=== PATIENT | female | born 1955 | race Caucasian/White ===

== ENCOUNTER → 2017-06-22 08:45 | Outpatient (CLI) | payer OTHER, SELFPAY ==
--- NOTE | 2017-06-22 08:51 | HPBD_ITS ---
STUDY: DUAL ENERGY X-RAY ABSORPTIOMETRY / DXA REASON FOR EXAM: Female, 61 years old. The patient is postmenopausal. Loss of height. TECHNIQUE: Bone Mineral Density (BMD) measurements of lumbar spine and bilateral hips were obtained. COMPARISON: None. FINDINGS: Lumbar Spine (L1-L4): g/cm2 (1.097) / T-score (-0.7) / Z-score (0.5) Findings are suggestive of normal bone density with a low fracture risk. Left Femur Total: g/cm2 (0.954) / T-score (-0.4) / Z-score (0.5) Left Femoral Neck: g/cm2 (1.056) / T-score (0.1) / Z-score (1.4) Right Femur Total: g/cm2 (0.991) / T-score (-0.1) / Z-score (0.8) Right Femoral Neck: g/cm2 (1.053) / T-score (0.1) / Z-score (1.3) HPBD/Dexa Bone Density Study (HP) IMPRESSION: The patient is considered normal as outlined below according to World Eugene Organization (WHO) criteria with a low fracture risk. Reference Information: The T-score is the number of standard deviations above or below the standard which is normal for young adults at their peak bone mineral density. The World Health Organization (WHO) interprets the T-scores as follows: Above -1 Normal bone density Between -1 and -2.5 Osteopenia Equal to / or below -2.5 Osteoporosis As a practical clinical guideline, osteopenia may be graded as follows: Mild -1 through -1.5 Moderate -1.6 through -2.0 Severe -2.1 through -2.4 The Z-score is the number of standard deviations above or below age-matched controls. A Z-score of less than -1.5 would be considered abnormal. References: 1. NIH Osteoporosis and Related Bone Diseases http://www.osteo.org 2. International Society for Clinical Densitometry http://www.iscd.org 3. National Osteoporosis Foundation http://www.nof.org Electronically Signed: Ash Dennis MD at 13:01 EDT Tel [phone], Service support ,
--- NOTE | 2017-06-22 08:52 | HPBI_ITS ---
MAMMOGRAPHY - BILATERAL SCREENING REASON FOR EXAM: Female, 61 years old. Routine annual screening examination. PERTINENT HISTORY: Aunt with breast cancer. TECHNIQUE: Digital bilateral breast lan (3D mammographic acquisition) in the CC and MLO projections. 2-D mediolateral oblique (MLO) and craniocaudad (CC) views of both breasts were obtained. CAD: Full Field Digital Mammography with Computer Added Detection was performed. COMPARISON: Comparison is made with prior study dated May 23, 2016. FINDINGS: Breast Composition: The breasts are extremely dense, which lowers the sensitivity of mammography. There are no dominant masses or suspicious calcifications. No other significant abnormalities are identified. There has been no significant change since the prior study. HPBI/SCREENING MAMM (CAD), BILAT IMPRESSION: Stable bilateral screening mammogram. Yearly follow-up mammogram recommended. (A) ASSESSMENT CATEGORY: BIRADS Category 1: Negative. A letter regarding these results will be sent to the patient by the facility within 30 days. Approximately 10% of breast cancers are not detected by mammography. A normal mammogram should not delay biopsy of a clinically suspicious abnormality. [id number] Electronically Signed: Ash Dennis MD at 10:59 EDT Tel [phone], Service support ,
== END ==
PROVIDERS: Family Provider Internal Medicine; PCP Internal Medicine; Visit Provider Internal Medicine
DX: Z12.31 Encounter for screening mammogram for malignant neoplasm of breast (principal); Z78.0 Asymptomatic menopausal state
CPT/HCPCS: 77063; 77067; 77080

== ENCOUNTER → 2018-02-03 09:58 | Outpatient (CLI) | payer OTHER, SELFPAY ==
[2018-02-03 10:03] LABS: Absolute Lymphocyte Count 0.66 X10^3/ul (0.83-4.51); Absolute Neutrophil Count 6.9 X10^3/uL (2.0-7.7); Basophil# 0.01 X10^3/uL; Basophil% 0.1 % (0-1); Eosinophil# 0.01 X10^3/uL; Eosinophils% 0.1 % (0-5); Hematocrit 39.7 % (37-47); Hemoglobin 12.5 g/dl (12.0-15.0); Lymphocyte # 0.66 X10^3/ul (4.0); Lymphocyte % 7.8 % (19-41); Mean Corp Hgb Conc 31.5 g/gl (32-36); Mean Corpuscular Hgb 27.5 pg (27.0-32.0); Mean Corpuscular Volume 87.3 fL (81-99); Mean Platelet Vol. 10.8 fl (6.2-12.0); Monocyte# 0.92 X10^3/uL; Monocyte% 10.8 % (0-10); Neutrophil # 6.88 X10^3/uL (2.7-7.7); Neutrophil % 81.2 % (47-70); Platelet Count 171 K/mm3 (150-450); RBC Distribution Width CV 13.1 % (11.6-14.6); RBC Distribution Width SD 41.9 fl (35.1-43.9); Red Blood Count 4.55 M/mm3 (4.2-5.4); White Blood Count 8.5 K/mm3 (4.4-11.0)
[2018-02-03 10:04] LABS: POSITIVE COUNT NO; POSITIVE DIFFERENTIAL NO; POSITIVE MORPHOLOGY NO
[2018-02-03 10:13] LABS: Amylase 74 U/L (25-115); Lipase 77 U/L (73-393)
== END ==
PROVIDERS: PCP Internal Medicine; Visit Provider Internal Medicine
DX: R10.32 Left lower quadrant pain (principal)
CPT/HCPCS: 82150; 83690; 85025

== ENCOUNTER 2018-03-08 18:11 | Observation (INO) | payer OTHER, SELFPAY ==
[2018-03-08] VITALS (7 sets, daily range): BP systolic 95–121; BP diastolic 60–75; PULSE 58–66; RESP 11–15; TEMP 36.5–36.7; O2SAT 98–100; BMI 22.6; BMI 22.8
--- NOTE | 2018-03-08 18:17 | EKG12_ITS ---
Test Reason : CP Blood Pressure : / mmHG Vent. Rate : 056 BPM Atrial Rate : 056 BPM P-R Int : 130 ms QRS Dur : 080 ms QT Int : 396 ms P-R-T Axes : -13 071 064 degrees QTc Int : 382 ms Sinus bradycardia Otherwise normal ECG Confirmed by MICHELLE RAYMOND, GEO ([id number]), technical writer and editor ALF ALTAMIRANO ([id number]) on 03/11/2018 2:21:58 PM Referred By: MANDI Confirmed By:GEO MARTINEZ MD
[2018-03-08] MEDS: Aspirin 81 MG TAB.CHEW 324 MG PO (18:21)
--- NOTE | 2018-03-08 18:25 | RAD_ITS ---
STUDY: X-RAY CHEST REASON FOR EXAM: Female, 62 years old. Chest pain TECHNIQUE: Single frontal view COMPARISON: None. FINDINGS: The lungs are clear and expanded. There is no demonstrated pleural abnormality. Normal size heart. Normal mediastinum and chinedu. Normal visualized pulmonary arteries. Normal visualized aortic arch and descending thoracic aorta. Normal visualized thoracic spine. Normal visualized ribs, clavicles, and shoulders. Bony infarct of the left humerus. There is no demonstrated abnormality of the visualized soft tissue structures of the upper abdomen. RAD/Chest 1 View (Portable) IMPRESSION: Normal x-ray examination of the chest. Electronically Signed: Orlin Terjo DO at 19:09 EST Tel [phone], Service support ,
--- NOTE | 2018-03-08 18:29 | ED.VISSUMM ---
- ER Visit Summary Date of Service: 03/08/18 Chief Complaint: Chest pain History of Present Illness: The patient is a 62 F dyspnea past medical history. Currently on no medications. Says around 1030 today she felt like her heart was racing. About 430s afternoon she started getting low chest pain that was also epigastric. She said she felt like she might pass out but did not. Says currently the pain is gone. She denies any shortness of breath she did have nausea and vomiting x1 and was diaphoretic. Patient states that she works out 5 times a week walking 3 miles and has had no problems at all recently. She is never had a cardiac cath or stress test. She is a non-smoker. She did recently travel to [place] and just returned within the last week. She denies any hemoptysis. She denies any leg pain or swelling. No pleuritic nature to her discomfort. She denies any recent exertional chest pain or exertional shortness of breath. This occurred today at rest. Physical Examination: Middle-aged female. Initial vital signs are stable and afebrile. Pulse ox 9% on room air no signs of hypoxia. H EENT exam unremarkable. Neck nontender no JVD. Lungs clear to auscultation bilaterally. Heart regular rate and rhythm rate about 60 no murmur. Chest wall nontender. Abdomen soft and nontender. Normal bowel sounds no peritoneal signs. Patient is moving all 4 extremities. Neurovascular intact. 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 She has equal symmetrical radial pulses. Calves are nontender without edema or cords. Neurologically she is awake and alert with no focal motor deficits. Test Results: Initial EKG done The patient is currently pain-free is a sinus bradycardia rate of 56. She does have minimal concave elevation in leads II, III and aVF with upsloping. Leads V3, 4 and V5 may have hyper acute T waves. Repeat EKG was unchanged from prior. It was a normal sinus rhythm at rate of 60. There are very subtle changes inferiorly. At this time EKG is the same as the first. And again we do not have an old EKG available for comparison. Again currently the patient has been pain-free while in the ER. CBC is normal. BMP is normal with a normal creatinine and gap. D-dimer is less than 0.27. Chest x-ray is normal read by myself with a normal cardiac silhouette and mediastinum. Troponin is slightly elevated at 0.322. Emergency Department Course and Treatment: Currently patient is pain-free. She will be given 325 mg of aspirin. She is undergoing a cardiac workup. Due to her recent travel I will also obtain a d-dimer. Clinically it does not sound like a PE. Treatment Plan: I long discussion the patient and her . She understands she is going to be admitted. She has been pain-free while in the ER. I am going to do a second troponin on her before she goes to the PCU. I have already spoken to the senior recruitment consultant Dr. Ray. I also spoke to his primary care physician Dr. Vu. I will speak to Dr. Thrasher on-call for cardiology [facility] and also the hospitalist. Disposition: Admission Impression: Acute chest pain Abnormal troponin with subtle EKG changes. This note was generated with [employer] dictation software. It may contain incorrect words, spelling, and punctuation that were not noted in review of the chart prior to signing ED Disposition - Plan for ED Patient: Chief Complaint: Chest Pain Referrals: Nehal Vu MD [Primary Care Provider] -
[2018-03-08 18:31] LABS: Absolute Lymphocyte Count 1.97 X10^3/ul (0.83-4.51); Absolute Neutrophil Count 2.9 X10^3/uL (2.0-7.7); Basophil# 0.02 X10^3/uL; Basophil% 0.4 % (0-1); Eosinophils% 1.8 % (0-5); Hematocrit 41.8 % (37-47); Hemoglobin 13.5 g/dl (12.0-15.0); Lymphocyte # 1.97 X10^3/ul (4.0); Lymphocyte % 35.7 % (19-41); Mean Corp Hgb Conc 32.3 g/gl (32-36); Mean Corpuscular Volume 86.7 fL (81-99); Mean Platelet Vol. 10.7 fl (6.2-12.0); Monocyte# 0.54 X10^3/uL; Monocyte% 9.8 % (0-10); Neutrophil # 2.88 X10^3/uL (2.7-7.7); Neutrophil % 52.1 % (47-70); Platelet Count 196 K/mm3 (150-450); RBC Distribution Width CV 13.4 % (11.6-14.6); RBC Distribution Width SD 41.9 fl (35.1-43.9); Red Blood Count 4.82 M/mm3 (4.2-5.4); White Blood Count 5.5 K/mm3 (4.4-11.0)
[2018-03-08 18:33] LABS: POSITIVE COUNT NO; POSITIVE DIFFERENTIAL NO; POSITIVE MORPHOLOGY NO
--- NOTE | 2018-03-08 18:33 | ED.DCSUM_ITS ---
- ER Visit Summary Date of Service: 03/08/18 Chief Complaint: Chest pain History of Present Illness: The patient is a 62 F dyspnea past medical history. Currently on no medications. Says around 1030 today she felt like her heart was racing. About 430s afternoon she started getting low chest pain that was also epigastric. She said she felt like she might pass out but did not. Says currently the pain is gone. She denies any shortness of breath she did have nausea and vomiting x1 and was diaphoretic. Patient states that she works out 5 times a week walking 3 miles and has had no problems at all recently. She is never had a cardiac cath or stress test. She is a non-smoker. She did recently travel to [place] and just returned within the last week. She denies any hemoptysis. She denies any leg pain or swelling. No pleuritic nature to her discomfort. She denies any recent exertional chest pain or exertional shortness of breath. This occurred today at rest. Physical Examination: Middle-aged female. Initial vital signs are stable and afebrile. Pulse ox 9% on room air no signs of hypoxia. H EENT exam unremarkable. Neck nontender no JVD. Lungs clear to auscultation bilaterally. Heart regular rate and rhythm rate about 60 no murmur. Chest wall nontender. Abdomen soft and nontender. Normal bowel sounds no peritoneal signs. Patient is moving all 4 extremities. Neurovascular intact. 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 She has equal symmetrical radial pulses. Calves are nontender without edema or cords. Neurologically she is awake and alert with no focal motor deficits. Test Results: Initial EKG done The patient is currently pain-free is a sinus bradycardia rate of 56. She does have minimal concave elevation in leads II, III and aVF with upsloping. Leads V3, 4 and V5 may have hyper acute T waves. Repeat EKG was unchanged from prior. It was a normal sinus rhythm at rate of 60. There are very subtle changes inferiorly. At this time EKG is the same as the first. And again we do not have an old EKG available for comparison. Again currently the patient has been pain-free while in the ER. CBC is normal. BMP is normal with a normal creatinine and gap. D-dimer is less than 0.27. Chest x-ray is normal read by myself with a normal cardiac silhouette and mediastinum. Troponin is slightly elevated at 0.322. Emergency Department Course and Treatment: Currently patient is pain-free. She will be given 325 mg of aspirin. She is undergoing a cardiac workup. Due to her recent travel I will also obtain a d-dimer. Clinically it does not sound like a PE. Treatment Plan: I long discussion the patient and her . She understands she is going to be admitted. She has been pain-free while in the ER. I am going to do a second troponin on her before she goes to the PCU. I have already spoken to the projection engineer Dr. Ray. I also spoke to his primary care physician Dr. Vu. I will speak to Dr. Thrasher on-call for cardiology [facility] and also the hospitalist. Disposition: Admission Impression: Acute chest pain Abnormal troponin with subtle EKG changes. This note was generated with [employer] dictation software. It may contain incorrect words, spelling, and punctuation that were not noted in review of the chart prior to signing ED Disposition - Plan for ED Patient: Chief Complaint: Chest Pain Referrals: Nehal Vu MD [Primary Care Provider] -
--- NOTE | 2018-03-08 18:33 | EKG12_ITS ---
Test Reason : REPEAT Blood Pressure : / mmHG Vent. Rate : 060 BPM Atrial Rate : 060 BPM P-R Int : 136 ms QRS Dur : 080 ms QT Int : 394 ms P-R-T Axes : 015 057 054 degrees QTc Int : 394 ms Normal sinus rhythm with sinus arrhythmia Normal ECG Confirmed by MICHELLE RAYMOND, GEO ([id number]), assignment desk editor ALF ALTAMIRANO ([id number]) on 03/11/2018 2:22:10 PM Referred By: TAWANA Confirmed By:GEO MARTINEZ MD
--- NOTE | 2018-03-08 18:35 | ED.RN ---
NO OLD EKGS IN MUSE
[2018-03-08 18:49] LABS: Anion Gap 6 (5-15); BUN 18 mg/dL (7-18); Calcium,Total 8.8 mg/dL (8.5-10.1); Chloride 103 mmol/L (98-107); Creatinine, Serum 0.64 mg/dL (0.55-1.02); EST Glomerular Filtration Rate 100 mL/min (>60); Est Glom Filt Rate - Afr Amer 121 mL/min (>60); Estimated Creatinine Clearance 80.72 ml/min; Glucose 98 mg/dL (74-106); Potassium 3.6 mmol/L (3.5-5.1); Sodium Level 139 mmol/L (136-145)
[2018-03-08 18:53] LABS: D-Dimer Quantitative (DVT/PE) < 0.27 FEU/ug/m (0.27-0.49)
--- NOTE | 2018-03-08 20:09 | HP.PCM_ITS ---
Problem List (1) Syncope Status: Acute (2) Epigastric pain Status: Acute History of Present Illness Date of Admission: 03/08/18 Chief Complaint: racing heart The patient is a 62 year old F with a significant history of prediabetes resolved with lifestyle changes of diet and exercise who presented with persistent palpitations. Patient reported that in the past year she has had palpitations that goes away in 30 minutes however this time around she had persistent palpitations which will not go away. She reached out into a cabinet to grab something and then she had a transient loss of consciousness. She denies vertigo, but reports that she was unable to focus. Assisted with her symptoms is nonradiating epigastric pain that she rates as 4 out of 10 in severity. Epigastric pain was dull and stabbing. Her epigastric pain was relieved with aspirin that she received at emergency department. She did not she denies any aggravating factor to her epigastric pain. Further, she reported vomiting and diaphoresis. She reported that her father had heart problems in his 40s-50s. EKG at the ED showed some subtle ST elevation in inferior leads. Emergency department doctor talked to Dr. Thrasher and Dr. Ray. Per recommend patient from Dr. Thrasher; emergency department doctor ordered Brilinta and therapeutic Lovenox. On the floor repeat EKG was sent to Dr. Ray. The repeat EKG showed resolution of the previous subtle ST elevation. Past Medical History Medical History: Medical History (Last Reviewed 03/09/18 @ 04:30 by Wade Cortez MD) Prediabetes R73.03 Allergies No Known Allergies Allergy (Verified 03/08/18 18:15) Home Medications: Ambulatory Orders Medication Instructions Recorded Multivitamin [Daily Multiple 1 each PO DAILY 03/08/18 Vitamin] Surgical History: cholecystectomy, - - R knee surgery Lives: Spouse/ Significant Other Smoking Status: Never smoker Alcohol: None - *Family History Paternal Family History: Family History (Last Reviewed 03/09/18 @ 04:30 by Wade Cortez MD) Father Heart problem Brother Diabetes Brother Diabetes Sister Diabetes Review of Systems Constitutional: Denies: Chills, Fever, Weight Change HEENT: Denies: Head Aches, Sinus Congestion, Sinus Drainage Cardiovascular: Reports: Chest Pain, Palpitations, Syncope Respiratory: Denies: Cough, Shortness of breath at rest, Sputum production Gastrointestinal: Reports: Vomiting. Denies: Abdominal Pain - epigastric pain Genitourinary: Denies: Dysuria Musculoskeletal: Denies: Joint Pain, Joint Tenderness Skin: Denies: Rash, Wounds Neurological: Denies: Numbness, Tingling, Focal weakness Psychiatric: Denies: Anxiety, Depression, Homicidal Ideations, Suicidal Ideations Hematologic/ Lymphatic: Denies: Easy Bruising, Easy Bleeding VTE Information - Inpt Only VTE Present on Admission: No VTE Mechan Device Prophylaxis: None VTE Pharm Prophylaxis ordered?: No Reason prophylaxis not ordered:: Treatment Not Indicated - Started on therapeutic lovenox for ACS Patient Problems: Active and Suspected Problems (Last Updated 03/08/18 @ 20:09 by Wade Cortez MD) Syncope (Acute) Epigastric pain (Acute) - Physical Exam General: Alert, Oriented x3, Cooperative HEENT: Atraumatic, PERRLA, EOMI, Normocephalic Neck: Supple, No JVD, Negative Carotid Bruits Lungs: Clear to auscultation, Normal air movement Cardiovascular: No murmurs, Bradycardic Abdomen: Bowel Sounds Present, Soft, Non Tender Extremities: No edema, Capillary Refill Less than 3 Seconds Skin: No rashes, No breakdown Musculoskeletal: No Tenderness to Palpation of Joints or Extremities Neurological: Cranial nerves II-XII grossly intact Psych/Mental Status: Normal Affect, Appropriate Vital Signs Temp Pulse Resp BP Pulse Ox 97.7 F L 59 L 15 121/75 H 98 03/08/18 18:11 03/08/18 19:30 03/08/18 19:30 03/08/18 19:30 03/08/18 19:30 Oxygen Delivery Method Room Air Weight: 59.874 kg Body Mass Index (BMI) 22.6 Laboratory Tests Past 24 Hrs 03/08/18 03/08/18 03/08/18 18:15 18:15 18:15 WBC 5.5 RBC 4.82 Hgb 13.5 Hct 41.8 MCV 86.7 MCH 28.0 MCHC 32.3 RDW 13.4 RDW Differential 41.9 Plt Count 196 MPV 10.7 Immature Gran % (Auto) 0.200 Neut % (Auto) 52.1 Lymph % (Auto) 35.7 Robertson % (Auto) 9.8 Eos % (Auto) 1.8 Baso % (Auto) 0.4 Absolute Neuts (auto) 2.9 Absolute Lymphs (auto) 1.97 Total Counted Not Reportable D-Dimer Quant (PE/DVT) < 0.27 L Sodium 139 Potassium 3.6 Chloride 103 Carbon Dioxide 30.0 Anion Gap 6 BUN 18 Creatinine 0.64 Estim Creat Clear Calc 80.72 Est GFR (MDRD) Af Amer 121 Est GFR (MDRD) Non-Af 100 BUN/Creatinine Ratio 28.0 H Glucose 98 Calcium 8.8 Troponin I 0.322 H Assessment/Plan All Active Problems (Last Updated 03/08/18 @ 20:09 by Wade Cortez MD) Syncope (Acute) Epigastric pain (Acute) The patient is a 62 year old F with a significant history of prediabetes resolved with lifestyle changes of diet and exercise who presented with persistent palpitations; chest pain and syncope. Syncope Likely from dysrhythmia. Patient admitted to progressive care unit on continued telemetry. Cardiology consult. Epigastric pain With her symptoms of syncope, palpitations, abnormal EKG, diaphoresis; family history of heart issues and her female gender it is likely that her symptoms is cardiac related.. Received aspirin 324 mg at emergency department. CXR independently reviewed confirms no acute cardia pulmonary process. EKG independently reviewed showed subtle ST abnormality in inferior leads with repeat EKG shows resolution of ST abnormality. Received ASA 324mg at the ED ASA 81 mg p.o. daily Brilinta loading dose ordered from the ED. Continue maintenance Brilinta dosage . Lovenox therapy dose ordered from the ED; continued. High intensity statin started. SL NTG 0.4 mg prn as needed for chest pain Serial cardiac enzymes Stat EKG as needed for chest pain Fasting lipids ordered. Cardiology consult for further risk stratification and management. Will keep patient npo for possible cardiac work up in am Palpitations On telemetry TSH ordered. Prediabetes A1C returned as 5.8 Patient to continue lifestyle modification DVT prophylaxis Not indicated on therapeutic Lovenox for possible acute coronary syndrome Code Visit OBSV E&M: [id number] Initial observation care L3
[2018-03-08] MEDS: TICAGRELOR 90 MG TABLET 180 MG PO (20:10)
[2018-03-08] MEDS: Enoxaparin 60 MG/0.6 ML Syringe SC (20:11)
[2018-03-08 20:17] LABS: Partial Thromboplast Time 26.4 Seconds (24.1-36.2); Prothrombin Time (Protime)PT. 13.6 SECONDS (11.7-14.9)
--- NOTE | 2018-03-08 20:22 | EKG12_ITS ---
Test Reason : CP ADMIT Blood Pressure : / mmHG Vent. Rate : 058 BPM Atrial Rate : 058 BPM P-R Int : 138 ms QRS Dur : 086 ms QT Int : 406 ms P-R-T Axes : 078 062 071 degrees QTc Int : 398 ms Sinus bradycardia Otherwise normal ECG Confirmed by MICHELLE RAYMOND, GEO ([id number]), desk editor ALF ALTAMIRANO ([id number]) on 03/11/2018 2:05:22 PM Referred By: DR OLMSTEAD Confirmed By:GEO MARTINEZ MD
[2018-03-08] MEDS: Atorvastatin Calcium 80 MG Tablet PO (21:25)
[2018-03-08 22:09] LABS: Hemoglobin A1c 5.8 % (4.2-6.3)
[2018-03-08] MEDS: 0.9% NaCl Peripheral Flush Adult/Peds IV (23:58)
[2018-03-08] MEDS: 0.9% Normal Saline 1,000 ML 100 ML IV (23:59)
[2018-03-09] VITALS (15 sets, daily range): BP systolic 92–115; BP diastolic 49–66; PULSE 52–60; RESP 10–18; TEMP 36.3–37.2; O2SAT 96–99
[2018-03-09 06:10] LABS: Hematocrit 42.8 % (37-47); Hemoglobin 13.6 g/dl (12.0-15.0); Mean Corp Hgb Conc 31.8 g/gl (32-36); Mean Corpuscular Hgb 27.3 pg (27.0-32.0); Mean Corpuscular Volume 85.9 fL (81-99); Mean Platelet Vol. 10.3 fl (6.2-12.0); Platelet Count 187 K/mm3 (150-450); RBC Distribution Width CV 13.4 % (11.6-14.6); RBC Distribution Width SD 42.1 fl (35.1-43.9); Red Blood Count 4.98 M/mm3 (4.2-5.4); White Blood Count 4.8 K/mm3 (4.4-11.0)
[2018-03-09 06:24] LABS: Scan Indicated on CBC? Y/N NO
[2018-03-09 06:34] LABS: Anion Gap 8 (5-15); BUN 18 mg/dL (7-18); BUN/Creat Ratio 31.1 RATIO (10-20); Calcium,Total 8.4 mg/dL (8.5-10.1); Chloride 108 mmol/L (98-107); Cholesterol 182 mg/dL (200); Creatinine, Serum 0.58 mg/dL (0.55-1.02); EST Glomerular Filtration Rate 113 mL/min (>60); Est Glom Filt Rate - Afr Amer 137 mL/min (>60); Estimated Creatinine Clearance 89.07 ml/min; Glucose 82 mg/dL (74-106); High Density Lipoprotein 62 mg/dL; Potassium 3.7 mmol/L (3.5-5.1); Sodium Level 143 mmol/L (136-145); Thyroid Stim Hormone (TSH) 1.28 uIU/mL (0.358-3.74); Triglycerides 49 mg/dL; Very Low Density Lipoprotein 10 mg/dL (5-40)
--- NOTE | 2018-03-09 08:10 | ECHOD_ITS ---
Reason For Study: Chest Pain Procedure This was a 2D Doppler, Color Flow transthoracic echocardiogram. The exam was of adequate technical quality. Exam performed portable in patient room. Left Ventricle Normal LV size. Apical false tendon noted. Left ventricular systolic function is normal. The estimated ejection fraction is 65 %. No evidence for diastolic dysfunction. No regional wall motion abnormalities noted. Right Ventricle Normal RV size. Normal systolic function. Atria Normal left atrium. Normal right atrium. No doppler evidence for ASD. Mitral Valve There is no mitral annular calcification. Normal mitral valve. Mild (1+) eccentric mitral valve insufficiency. Tricuspid Valve Normal tricuspid valve. Trivial tricuspid valve insufficiency. Right ventricular systolic pressure estimated to be 23 mmHg. Aortic Valve Trisinus/trileaflet aortic valve. Normal aortic valve. Pulmonic Valve The pulmonic valve is not well visualized. Great Vessels Normal sized aortic root. Pericardium/Pleural Trivial pericardial effusion. There are no echocardiographic indications of cardiac tamponade. MMode/2D Measurements & Calculations LVIDd: 4.8 cm IVSd: 0.86 cm Ao root diam: 2.9 cm LVIDs: 2.6 cm LVPWd: 0.79 cm LA dimension: 3.2 cm RVDd: 3.0 cm FS: 46.1 % LAV(MOD-bp): 28.7 ml LVAd ap4: 24.6 cm2 SV(MOD-sp4): 56.2 ml LAV(MOD-bp) Indexed: 17.9 ml/m2 EDV(MOD-sp4): 74.7 ml LAV(MOD-sp2): 26.3 ml EDV(sp4-el): 73.5 ml LAV(MOD-sp4): 24.6 ml LVAs ap4: 10.8 cm2 ESV(MOD-sp4): 18.4 ml ESV(sp4-el): 18.9 ml EF(MOD-sp4): 75.3 % EF(sp4-el): 74.3 % SV(sp4-el): 54.6 ml LA A4 area: 11.9 cm2 RA A4 area: 13.1 cm2 Doppler Measurements & Calculations MV E max grupo: 82.5 cm/sec Lat Peak E' Grupo: 11.2 cm/sec Med Peak E' Grupo: 10.1 cm/sec MV A max grupo: 56.6 cm/sec E/E' lat: 7.4 E/E' med: 8.1 MV E/A: 1.5 Ao V2 max: 135.1 cm/sec LV V1 max: 111.1 cm/sec PA V2 max: 90.6 cm/sec Ao max P.3 mmHg LV V1 max P.9 mmHg Ao V2 mean: 94.6 cm/sec Ao mean P.0 mmHg Ao V2 VTI: 31.9 cm TR max grupo: 225.5 cm/sec TR max P.3 mmHg Interpretation Summary Left ventricular systolic function is normal. The estimated ejection fraction is 65 %. Apical false tendon noted. Mild (1+) eccentric mitral valve insufficiency. Trivial tricuspid valve insufficiency. Trivial pericardial effusion. There are no echocardiographic indications of cardiac tamponade. Right ventricular systolic pressure estimated to be 23 mmHg. No evidence for diastolic dysfunction. Ordering Physician: Emerson Thrasher Referring Physician: Nehal Vu Performed By: Beth Silva, ROYA, RVT
--- NOTE | 2018-03-09 08:11 | AAVD_ITS ---
Reason For Study: Palpable aorta Aorta Measurements Aorta Doppler Measurements Proximal aorta measures2.2 x 2.1cm. in cross- Peak systolic flow velocities within the proximal sectional axis. aorta measure 75.9 cm/sec. Proximal aorta measures2.0cm. in longitudinal Peak systolic flow velocities within the mid aorta axis. measure 94.7 cm/sec. Mid aorta measures1.6 x 1.7cm. in cross-sectional Peak systolic flow velocities within the distal axis. aorta measure 77.5 cm/sec. Mid aorta measures1.6cm. in longitudinal axis. Distal aorta measures1.6 x 1.7cm. in cross- sectional axis. Distal aorta measures1.7cm. in longitudinal axis. Left Iliac Artery Left iliac artery measures 1.1 cm. in the longitudinal axis. Left iliac artery measures 1.1 x 1.0 cm. in the cross-sectional axis. Peak systolic velocity in the left iliac artery measures 102.0 cm/sec. Right Iliac Artery Right iliac artery measures .93 cm. in the longitudinal axis. Right iliac artery measures 1.1 x 1.1 cm. in the cross-sectional axis. Peak systolic velocity in the right iliac artery measures 86.7 cm/sec. Procedure Aorta IVC Iliac vasculature or bypass grafts [id number]. Exam performed portable in patient room. Interpretation Summary Maximal aortic diameter 2.2 x 2.1 cm proximally with normal flow Left common iliac 1.1 x 1 cm Left common iliac 1.1 x 1.1 cm Ordering Physician: Emerson Thrasher Referring Physician: Nehal Vu M.D. Performed By: Monse Yuan RVT
--- NOTE | 2018-03-09 08:12 | PCM.CONS.C ---
Problem List (1) Palpitations Status: Acute (2) Syncope Status: Acute (3) Epigastric pain Status: Acute (4) Abnormal cardiac enzyme level Status: Acute (5) Palpable abdominal aorta Status: Acute Reason for Consult Date of Consultation: 03/09/18 History of Present Illness: The patient is a 62 year old white female who presents for evaluation of palpitations, near syncope, epigastric discomfort, and findings of abnormal cardiac enzymes and a palpable abdominal aorta. The patient states that for quite some time now she has been having episodes of palpitations and/or racing heart rate sensations. Yesterday she had an event that lasted for approximately 2 hours. Following her symptoms and she subsequently noted she felt somewhat weak and believe she went to the floor but did not necessarily lose consciousness. She also noted epigastric discomfort. Based upon those findings she presented to the [facility] emergency department for evaluation. She was subsequently noted to be in sinus rhythm. She had a abnormal troponin I level. Her ECG suggested sinus rhythm with nonspecific ST segment abnormality which was discussed with Dr. Ray of interventional cardiology of [facility] did not think her findings were compatible with a STEMI event. Thus she was placed in the PCU for further evaluation and care. She states she has been resting comfortably other than waxing and waning epigastric discomfort. Her cardiac rhythm has been followed and has remained sinus rhythm. Her troponin I levels elevated somewhat and then began to decrease. Her ECG has been repeated with no significant changes. She also had a d-dimer level reported as negative. She states in the past she was diagnosed with prediabetes . She notes she altered her lifestyle with respect to her diet and her activity level. She lost approximately 40 pounds of weight. She notes her metabolic profile improved. She did not require any ongoing evaluation or medication. She states she was also diagnosed with diverticular disease recently which was treated with antibiotics. She does not recall requiring additional evaluation or therapy for that issue. She notes she has a family history of heart disease in her father and a sister who has a history of a abnormal heartbeat . She recently returned from a trip to [place]. Thus the d-dimer was performed which was reported as negative indicating less likely a PE was the etiology for her symptoms and/or events. She states she has never had to go through any cardiovascular evaluation in the past. She has always attributed her palpitations to anxiety. She denies any history of orthopnea, PND, or peripheral pitting edema. She does not believe she actually lost consciousness during her event yesterday. [] Past Medical History Allergies/Adverse Reactions: Allergies No Known Allergies Allergy (Verified 03/08/18 18:15) Home Medications: Ambulatory Orders Medication Instructions Recorded Multivitamin [Daily Multiple 1 each PO DAILY 03/08/18 Vitamin] Surgical History: cholecystectomy, - - R knee surgery - *Family History Paternal Family History: Family History (Last Reviewed 03/09/18 @ 04:30 by Wade Cortez MD) Father Heart problem Brother Diabetes Brother Diabetes Sister Diabetes Lives: Spouse/ Significant Other Smoking Status: Never smoker Tobacco Use: Non-smoker Alcohol: None Review of Systems - Review of Systems General: Denies: Fever, Night Sweats, Fatigue Cardiovascular: Reports: Palpitations, Near Syncope. Denies: Chest Discomfort, Shortness of Breath, Orthopnea, PND, Peripheral Edema, Lightheadedness, Dizziness, Syncope Respiratory: Denies: Cough, Sputum Production, Hemoptysis Gastrointestinal: Reports: Epigastric Discomfort. Denies: Hematemesis, Hematochezia, Melena Genitourinary: Denies: Dysuria, Hematuria Skin: Denies: Rash Subjectve: This is a thin 62-year-old white female who appears resting comfortably at the moment in no acute distress. Objective: Vital Signs Temp Pulse Resp BP Pulse Ox 98.2 F 52 L 10 L 100/66 98 03/09/18 05:58 03/09/18 05:58 03/09/18 05:58 03/09/18 05:58 03/09/18 07:30 Oxygen Delivery Method Room Air Weight: 132 lb 15.02 oz Body Mass Index (BMI) 22.8 Intake and Output for Last 24 Hours 03/07/18 03/08/18 03/09/18 23:59 23:59 23:59 Intake Total 450 / 450 605 / 605 Balance 450 / 450 605 / 605 General: Awake, Alert, Oriented x 3, Cooperative, No Acute Distress HEENT: Atraumatic, Normocephalic, PERRL, EOMI, Sclera Non Icteric Oral: Moist Mucosa Neck: Supple, Good ROM, No JVD Lungs: Clear to auscultation Cardiovascular: Regular Rhythm, Normal S1, Normal S2 Vascular: No Carotid Bruits, Palpable Abdominal Aorta Abdomen: Bowel Sounds Present, Soft, Non Tender Extremities: No Cyanosis, No Clubbing, No edema Neurological: No Focal Motor or Sensory Deficit Psych/Mental Status: Anxious 03/08/18 18:15: WBC 5.5, RBC 4.82, Hgb 13.5, Hct 41.8, MCV 86.7, MCH 28.0, MCHC 32.3, RDW 13.4, RDW Differential 41.9, Plt Count 196, MPV 10.7, Immature Gran % (Auto) 0.200, Neut % (Auto) 52.1, Lymph % (Auto) 35.7, [place] % (Auto) 9.8, Eos % (Auto) 1.8, Baso % (Auto) 0.4, Absolute Neuts (auto) 2.9, Total Counted Not Reportable 03/08/18 18:15: Sodium 139, Potassium 3.6, Chloride 103, Carbon Dioxide 30.0, Anion Gap 6, BUN 18, Creatinine 0.64, Est GFR (MDRD) Af Amer 121, Est GFR (MDRD) Non-Af 100, BUN/Creatinine Ratio 28.0 H, Glucose 98, Calcium 8.8, Troponin I 0.322 H 03/08/18 18:15: D-Dimer Quant (PE/DVT) < 0.27 L 03/08/18 18:15: PT 13.6, INR 1.0, APTT 26.4 03/08/18 18:15: Hemoglobin A1c 5.8 03/08/18 21:20: Troponin I 0.864 H* 03/09/18 00:58: Troponin I 0.708 H* 03/09/18 05:10: Sodium 143, Potassium 3.7, Chloride 108 H, Carbon Dioxide 27.0, Anion Gap 8, BUN 18, Creatinine 0.58, Est GFR (MDRD) Af Amer 137, Est GFR (MDRD) Non-Af 113, BUN/Creatinine Ratio 31.1 H, Glucose 82, Calcium 8.4 L, Triglycerides 49, Cholesterol 182, LDL Cholesterol 110, VLDL Cholesterol 10, HDL Cholesterol 62 03/09/18 05:10: WBC 4.8, RBC 4.98, Hgb 13.6, Hct 42.8, MCV 85.9, MCH 27.3, MCHC 31.8 L, RDW 13.4, RDW Differential 42.1, Plt Count 187, MPV 10.3 Rhythm: Sinus rhythm EKG: This rhythm; nonspecific ST segment abnormality CXR: Preliminary evaluation: No acute cardiopulmonary disease process Assessment/Plan 1. Palpitations The patient has been experiencing palpitations on and off for quite some time. She states she is always attributed this to anxiety. However there is concern that she may have been experiencing some form of cardiac dysrhythmia. At the present time the patient will continue to be monitored. Based upon her other symptoms and/or objective findings she will continue cardiovascular evaluation care. This will include an echocardiogram to evaluate her cardiac anatomy and function. It will also include a diagnostic cardiac catheterization to evaluate her coronary anatomy. Depending upon her findings she may need additional cardiovascular medical management and/or diagnostic studies/intervention, etc. 2. Near syncope/syncope The patient states that she does not believe she actually lost consciousness during her of the event. It is unclear whether her event was related to a cardiac dysrhythmia and subsequent hemodynamic changes. If the patient did have a cardiac dysrhythmia it could have altered her cardiac enzyme profile as well. Thus at the present time the patient continues to be monitored. Her cardiac rhythm and enzymes and ECG have been followed. She will undergo evaluation with an echocardiogram and a diagnostic cardiac catheterization as noted above. 3. Epigastric discomfort Patient complains of intermittent epigastric discomfort. It is unclear whether this is a cardiovascular symptom versus a noncardiac symptom. However, based upon her other symptoms and objective findings especially with respect to her abnormal cardiac enzyme profile she will be recommended for further evaluation with diagnostic cardiac catheterization. Also based upon her palpable abdominal aorta she will be recommended for an abdominal aorta ultrasound to evaluate for any evidence of aneurysmal changes. 4. Abnormal cardiac enzymes In the patient has had abnormal cardiac enzymes. The technically were in the abnormal range potentially compatible with a non-ST segment elevation MA. Again it would be unclear whether this is a primary cardiovascular event versus a secondary event potentially brought out by a cardiac dysrhythmia. Thus she will continue to be monitored and undergo evaluation as noted above. She will continue medical management as deemed appropriate. 5. Palpable abdominal aorta The palpable abdominal aorta may be secondary to her thin body habitus. However it is also unclear as to whether or not she could have any aneurysmal dilatation. Thus she will undergo evaluation with abdominal ultrasound as well. Comment: The above has been discussed with the patient, the [facility] emergency department staff, and her primary care physician Dr. Vu. This note was generated with [employer] dictation software. It may contain incorrect words, spelling, and punctuation that were not noted in checking the note before signing.
[2018-03-09] MEDS: TICAGRELOR 90 MG TABLET PO (09:13)
[2018-03-09] MEDS: Aspirin E.C. 81 MG Tablet PO (09:13)
[2018-03-09] MEDS: 0.9% NaCl Peripheral Flush Adult/Peds IV (09:14)
--- NOTE | 2018-03-09 09:14 | CASEMGMT ---
Insurance Review for In-Network facilities for MMO insurance if transfer is recommended: Eugenie Bashir [facility], [facility], [facility], [facility], [facility], and [facility] Elva EASTN RN CM
--- NOTE | 2018-03-09 10:09 | CL.D_ITS ---
Patient Name: SAMI CAMPUZANO Study Date: 03/09/2018 Performing: Emerson Thrasher MD Ht: 64.17 inches 163 cm : 1955 Wt: 132.28 lbs 60 kg Age: 62 Gender: female BSA: 1.64 PROCEDURE(S) PERFORMED [id number] RENAL ANGIO WITH HEART CATH CLINICAL PROFILE AND INDICATIONS Indications: ACS <= 24 hrs, Suspected CAD Heart Failure: None Stress/Imaging Stress/Image Study Performed: No Angina Classification Anginal Classification w/in 2 Weeks: No symptoms CAD Presentations: Other: Near Syncope; Epigastric Discomfort CONCLUSIONS Elevated Left Ventricular End Diastolic Pressure Normal LV size, wall motion,and systolic function LVEF: by LV gram 65 % Normal coronary arteries Abdominal Aorta: angiographically normal Renal Artieries: angiographically normal RECOMMENDATIONS Risk factor modification Medical therapy DESCRIPTION OF PROCEDURE The patient arrived to the procedure lab. The risks and benefits of the procedure as well as a full d escription of our services here and current unavailability of surgical backup were fully explained to the patient and/or their significant other prior to the catheterization. The Timeout was completed, verifying the correct patient and procedure. The patient's procedural site was prepped and draped in the usual fashion. Local anesthetic was given subcutaneously to right groin region with Lidocaine 2%. Using a modified Seldinger technique, arterial access was obtained via the right femoral artery, a 4 Fr sheath was inserted Left Coronary Artery selective angiography was performed in multiple views us ing a 4 Fr. JL5 catheter. Right Coronary Artery selective angiography was then performed in multiple views using a 4 Fr. 3DRC catheter. Left Ventriculography was performed in MARINA projection using a 4 Fr . Pigtail catheter. LV to AO pullback pressures were then recorded.The arterial sheath was pulled and manual compression applied until hemostasis is achieved. CORONARY ANGIOGRAPHY DOMINANCE: Right Dominant LEFT HEART ASSESSMENT Left Ventricular Ejection Fraction: by LV Gram 65 % Normal LV wall motion Elevated Left Ventricular End Diastolic Pressure LVEDP: 20 mmHg LEFT MAIN: Angiographically normal LEFT ANTERIOR DECENDING ARTERY: Angiographically normal CIRCUMFLEX ARTERY: Angiographically normal RIGHT CORONARY ARTERY: Angiographically normal VALVE FINDINGS: Normal Aortic Valve function Normal Mitral Valve function AORTIC ROOT: Angiographically normal PERIPHERAL FINDINGS: Abdominal Aorta: Angiographically Normal Right Renal Artery Angiographically normal Left Renal Artery Angiographically non-obstructive COMPLICATIONS No Complications PROCEDURE MEDICATIONS Versed 1 mg IV Oxygen: 2 L/min via nasal cannula IV Bolus: .9 NaCl 500 ml total 03/09/2018 10:00:23 SUMMARY OF HEMODYNAMIC DATA Time AIR REST ECG 09:17:36 AO 112/54 (75) SA 09:35:41 LV 117/0, 22 09:41:37 LV 119/-7, 20 09:41:44 LV 126/11, 34 09:42:47 LV 127/-3, 22 09:42:55 LVp 124/-4, 19 09:43:01 AOp 131/62 (88) 09:43:06 AOp 0/-4 (-3) 09:48:28 Signed By Emerson Thrasher MD On 03/09/2018 10:09:04 Emerson Thrasher MD
[2018-03-09] MEDS: 0.9% Normal Saline 1,000 ML 75 ML IV ×2 (12:28→12:31)
--- NOTE | 2018-03-09 14:01 | PCM.DC ---
- Discharge Diagnoses Current Active Problems: Current Active and Chronic Problems (Last Reviewed 03/09/18 @ 04:30 by Wade Cortez MD) Syncope (Acute) Epigastric pain (Acute) Palpitations (Acute) Abnormal cardiac enzyme level (Acute) Palpable abdominal aorta (Acute) You will use the following diet at home:: No restrictions Discharge Activity: - - Follow post-cath instructions. Call your doctor if you observe: Shortness of breath, Dizziness, Fainting spells, Chest pain Allergies/Adverse Reactions: Allergies No Known Allergies Allergy (Verified 03/08/18 18:15) Medications to take at Discharge Multivitamin [Daily Multiple Vitamin] 1 each PO DAILY 03/08/18 Metoprolol Tartrate 12.5 mg PO DAILY #30 tablet 03/09/18 The following prescriptions were given: Metoprolol Tartrate 12.5 mg PO DAILY #30 tablet Orders to be completed after discharge: 30-Day Event Recorder [[facility]] Location: None Selected Primary Care Physician: Nehal Vu MD [Primary Care Provider] - Please follow up with your Primary Care Physician in: 1 Week Test Results: Test results from this visit will be discussed in further detail at your follow-up appointment, if applicable. Please Follow Up With: Emerson Thrasher MD When: Office to call for appointment Please Follow Up With: Pb Smith MD When: 4-6 Weeks, establish for routine monitoring of mild AAA Proposed Discharge Date: 03/09/18
--- NOTE | 2018-03-09 14:04 | DCINST_ITS ---
- Discharge Diagnoses Current Active Problems: Current Active and Chronic Problems (Last Reviewed 03/09/18 @ 04:30 by Wade Cortez MD) Syncope (Acute) Epigastric pain (Acute) Palpitations (Acute) Abnormal cardiac enzyme level (Acute) Palpable abdominal aorta (Acute) You will use the following diet at home:: No restrictions Discharge Activity: - - Follow post-cath instructions. Call your doctor if you observe: Shortness of breath, Dizziness, Fainting spells, Chest pain Allergies/Adverse Reactions: Allergies No Known Allergies Allergy (Verified 03/08/18 18:15) Medications to take at Discharge Multivitamin [Daily Multiple Vitamin] 1 each PO DAILY 03/08/18 Metoprolol Tartrate 12.5 mg PO DAILY #30 tablet 03/09/18 The following prescriptions were given: Metoprolol Tartrate 12.5 mg PO DAILY #30 tablet Orders to be completed after discharge: 30-Day Event Recorder [[facility]] Location: None Selected Primary Care Physician: Nehal Vu MD [Primary Care Provider] - Please follow up with your Primary Care Physician in: 1 Week Test Results: Test results from this visit will be discussed in further detail at your follow- up appointment, if applicable. Please Follow Up With: Emerson Thrasher MD When: Office to call for appointment Please Follow Up With: Pb Smith MD When: 4-6 Weeks, establish for routine monitoring of mild AAA Proposed Discharge Date: 03/09/18
--- NOTE | 2018-03-09 14:10 | DS.PCM_ITS ---
<Shannon Walter - Last Filed: 03/09/18 14:14> Discharge Date and Diagnosis Date of Admission: 03/08/18 Date of Discharge: 03/09/18 - Primary Discharge Diagnosis Active and Suspected Problems (Last Reviewed 03/09/18 @ 04:30 by Wade Cortez MD) 1. NSTEMI, cardiac catheterization without CAD 2. Palpitations 3. Near syncope 4. Epigastric discomfort 5. Mild AAA Hospital Course and Treatment Imaging Results: Diagnostic Data Chest X-Ray 03/08/18 18:25 IMPRESSION: Normal x-ray examination of the chest. Electronically Signed: Orlin Trejo DO at 19:09 EST Tel [phone], Service support , Dr. Thrasher- Cardiology Operations: None Procedures: 2-D Echocardiogram, Cardiac catheterization Summary of Care Provided: The patient is a 62 year old F who presents the emergency room with near syncope, palpitations, epigastric discomfort. She has no prior past medical history. Patient underwent cardiac catheterization due to NSTEMI. Cardiac cath showed normal coronary arteries. LVEF 65%. Echocardiogram showed an EF of 65%, mild mitral valve insufficiency, RVSP estimated to be 23 mmHg. Telemetry without arrhythmia during admission. Patient will be started on low-dose beta- kenrick, metoprolol 12.5 mg p.o. daily for palpitations. She will be discharged on 30-day event monitor. Lipid panel within normal limits. Patient had abdominal ultrasound due to palpable abdominal aorta. Abdominal ultrasound showed aorta measuring 2.2 cm. Patient will be referred to Dr. Smith for routine monitoring. Follow-up with Dr. Thrasher as outpatient. Patient denies further dizziness, lightheadedness. Denies further palpitations. General: Alert, Oriented x3, Cooperative HEENT: Atraumatic, PERRLA, EOMI, Normocephalic Neck: Supple, No JVD, Negative Carotid Bruits Lungs: Clear to auscultation, Normal air movement Cardiovascular: No murmurs, mild bradycardic, normal S1, normal S2 Abdomen: Bowel Sounds Present, Soft, Non Tender Extremities: No edema, Capillary Refill Less than 3 Seconds Skin: No rashes, No breakdown Musculoskeletal: No Tenderness to Palpation of Joints or Extremities Neurological: Cranial nerves II-XII grossly intact Psych/Mental Status: Normal Affect, Appropriate Patient seen and examined prior to discharge. Physical assessment as noted above. Patient stable for discharge home with the follow-up recommendations as noted above. The patient was seen by JEANNINE Sibley under the supervision of Dr. Marcial. - Physical Exam Vital Signs Temp Pulse Resp BP Pulse Ox 99.0 F 58 L 18 107/53 L 98 03/09/18 13:20 03/09/18 13:20 03/09/18 13:20 03/09/18 13:20 03/09/18 13:20 Oxygen Delivery Method Room Air Weight: 132 lb 15.02 oz Body Mass Index (BMI) 22.8 Intake and Output for Last 24 Hours 03/07/18 03/08/18 03/09/18 23:59 23:59 23:59 Intake Total 450 / 450 1605 / 1605 Balance 450 / 450 1605 / 1605 Laboratory Tests Past 24 Hrs 03/08/18 03/08/18 03/08/18 18:15 18:15 18:15 WBC 5.5 RBC 4.82 Hgb 13.5 Hct 41.8 MCV 86.7 MCH 28.0 MCHC 32.3 RDW 13.4 RDW Differential 41.9 Plt Count 196 MPV 10.7 Immature Gran % (Auto) 0.200 Neut % (Auto) 52.1 Lymph % (Auto) 35.7 Gregg % (Auto) 9.8 Eos % (Auto) 1.8 Baso % (Auto) 0.4 Absolute Neuts (auto) 2.9 Absolute Lymphs (auto) 1.97 Total Counted Not Reportable PT INR APTT D-Dimer Quant (PE/DVT) < 0.27 L Sodium 139 Potassium 3.6 Chloride 103 Carbon Dioxide 30.0 Anion Gap 6 BUN 18 Creatinine 0.64 Estim Creat Clear Calc 80.72 Est GFR (MDRD) Af Amer 121 Est GFR (MDRD) Non-Af 100 BUN/Creatinine Ratio 28.0 H Glucose 98 Hemoglobin A1c Calcium 8.8 Troponin I 0.322 H Triglycerides Cholesterol LDL Cholesterol VLDL Cholesterol HDL Cholesterol TSH 03/08/18 03/08/18 03/08/18 18:15 18:15 21:20 WBC RBC Hgb Hct MCV MCH MCHC RDW RDW Differential Plt Count MPV Immature Gran % (Auto) Neut % (Auto) Lymph % (Auto) Gregg % (Auto) Eos % (Auto) Baso % (Auto) Absolute Neuts (auto) Absolute Lymphs (auto) Total Counted PT 13.6 INR 1.0 APTT 26.4 D-Dimer Quant (PE/DVT) Sodium Potassium Chloride Carbon Dioxide Anion Gap BUN Creatinine Estim Creat Clear Calc Est GFR (MDRD) Af Amer Est GFR (MDRD) Non-Af BUN/Creatinine Ratio Glucose Hemoglobin A1c 5.8 Calcium Troponin I 0.864 H* Triglycerides Cholesterol LDL Cholesterol VLDL Cholesterol HDL Cholesterol TSH 03/09/18 03/09/18 03/09/18 00:58 05:10 05:10 WBC 4.8 RBC 4.98 Hgb 13.6 Hct 42.8 MCV 85.9 MCH 27.3 MCHC 31.8 L RDW 13.4 RDW Differential 42.1 Plt Count 187 MPV 10.3 Immature Gran % (Auto) Neut % (Auto) Lymph % (Auto) Gregg % (Auto) Eos % (Auto) Baso % (Auto) Absolute Neuts (auto) Absolute Lymphs (auto) Total Counted PT INR APTT D-Dimer Quant (PE/DVT) Sodium 143 Potassium 3.7 Chloride 108 H Carbon Dioxide 27.0 Anion Gap 8 BUN 18 Creatinine 0.58 Estim Creat Clear Calc 89.07 Est GFR (MDRD) Af Amer 137 Est GFR (MDRD) Non-Af 113 BUN/Creatinine Ratio 31.1 H Glucose 82 Hemoglobin A1c Calcium 8.4 L Troponin I 0.708 H* Triglycerides 49 Cholesterol 182 LDL Cholesterol 110 VLDL Cholesterol 10 HDL Cholesterol 62 TSH 1.28 Discharge Diet: No Restrictions Discharge Activity: - - Follow post-cath instructions. Call your doctor if you observe: Shortness of breath, Dizziness, Fainting spells, Chest pain Home Medications: Medications to take at Discharge Multivitamin [Daily Multiple Vitamin] 1 each PO DAILY 03/08/18 Metoprolol Tartrate 12.5 mg PO DAILY #30 tablet 03/09/18 Following Prescrptions Were Given to Patient: Metoprolol Tartrate 12.5 mg PO DAILY #30 tablet Other Amb Orders: 30-Day Event Recorder [[facility]] Location: None Selected Primary Care Physician: Nehal Vu MD [Primary Care Provider] - Please follow up with your Primary Care Physician in: 1 Week Please Follow Up With: Emerson Thrasher MD When: Office to call for appointment Please Follow Up With: Pb Smith MD When: 4-6 Weeks, establish for routine monitoring of mild AAA Disposition: Home Minutes spent on discharge:: 35 Patient Condition:: Stable Medical Necessity - Tobacco Use Smoking Status: Never smoker Tobacco Use: Non-smoker Meaningful Use Info Meaningful Use Diagnoses (Choose all that apply): None applicable <Alejandra Marcial E - Last Filed: 03/09/18 15:24> Hospital Course and Treatment Imaging Results: 03/09/18 08:10 Echo Complete [ECHO] Routine Summary of Care Provided: Hospitalist note: Discharge summary above physical examination reviewed and I agree with the above discharge plan. Patient was admitted for irritation and chest pain, found to have acute non-ST elevation OK. Her EKG revealed no acute ischemic changes and without evidence of acute cardiac arrhythmias. Her troponin was elevated and maximum troponin was 0.864. Her other routine blood work was unremarkable. Sh was normal. Lipid profile was normal. She underwent cardiac catheterization that revealed angiographically normal coronary arteries without evidence of significant CAD. There was no etiology identified for this elevated cardiac enzymes but could be due to some form of cardiac arrhythmia. Telemetry reveals no evidence of cardiac arrhythmias. Cardiology recommended 30-day event monitor. Patient discharged home in a stable medical condition, discharged on metoprolol 12.5 mg p.o. daily, plan for 30-day event monitor, follow-up with cardiology as outpatient, follow-up with PCP in 1 week. - Physical Exam General: Alert, Oriented x3, Cooperative, No apparent distress HEENT: Atraumatic, PERRLA, EOMI, Normocephalic Oral: Moist Mucosa, No Gingival or Mucosal Lesions/ Ulcerations Neck: Supple, No JVD, Negative Carotid Bruits, Trachea Midline, Thyroid Normal Size and Texture Lungs: Clear to auscultation, No rhonchi, No wheeze, No rales, Diminished Cardiovascular: Regular rate, Regular Rhythm, Normal S1, Normal S2, No murmurs, PMI Normal Abdomen: Bowel Sounds Present, Soft, Non Tender, Non-Distended, No Hepato- splenomegaly Extremities: No clubbing, No cyanosis, No edema Skin: No rashes, No breakdown Lymphatic: No Cervical, Supraclavicular, or Inguinal Adenopathy Neurological: Cranial nerves II-XII grossly intact, Motor Exam 5/5 strength throughout Psych/Mental Status: Normal Affect, Appropriate, Alert and oriented to time, place, person, mood and affect Vital Signs stable. - Physical Exam Vital Signs Temp Pulse Resp BP Pulse Ox 98.6 F 59 L 15 99/49 L 96 03/09/18 14:20 03/09/18 14:20 03/09/18 14:20 03/09/18 14:20 03/09/18 14:20 Oxygen Delivery Method Room Air Weight: 132 lb 15.02 oz Body Mass Index (BMI) 22.8 Intake and Output for Last 24 Hours 03/07/18 03/08/18 03/09/18 23:59 23:59 23:59 Intake Total 450 / 450 1605 / 1605 Balance 450 / 450 1605 / 1605 Laboratory Tests Past 24 Hrs 03/08/18 03/08/18 03/08/18 18:15 18:15 18:15 WBC 5.5 RBC 4.82 Hgb 13.5 Hct 41.8 MCV 86.7 MCH 28.0 MCHC 32.3 RDW 13.4 RDW Differential 41.9 Plt Count 196 MPV 10.7 Immature Gran % (Auto) 0.200 Neut % (Auto) 52.1 Lymph % (Auto) 35.7 Gregg % (Auto) 9.8 Eos % (Auto) 1.8 Baso % (Auto) 0.4 Absolute Neuts (auto) 2.9 Absolute Lymphs (auto) 1.97 Total Counted Not Reportable PT INR APTT D-Dimer Quant (PE/DVT) < 0.27 L Sodium 139 Potassium 3.6 Chloride 103 Carbon Dioxide 30.0 Anion Gap 6 BUN 18 Creatinine 0.64 Estim Creat Clear Calc 80.72 Est GFR (MDRD) Af Amer 121 Est GFR (MDRD) Non-Af 100 BUN/Creatinine Ratio 28.0 H Glucose 98 Hemoglobin A1c Calcium 8.8 Troponin I 0.322 H Triglycerides Cholesterol LDL Cholesterol VLDL Cholesterol HDL Cholesterol TSH 03/08/18 03/08/18 03/08/18 18:15 18:15 21:20 WBC RBC Hgb Hct MCV MCH MCHC RDW RDW Differential Plt Count MPV Immature Gran % (Auto) Neut % (Auto) Lymph % (Auto) Gregg % (Auto) Eos % (Auto) Baso % (Auto) Absolute Neuts (auto) Absolute Lymphs (auto) Total Counted PT 13.6 INR 1.0 APTT 26.4 D-Dimer Quant (PE/DVT) Sodium Potassium Chloride Carbon Dioxide Anion Gap BUN Creatinine Estim Creat Clear Calc Est GFR (MDRD) Af Amer Est GFR (MDRD) Non-Af BUN/Creatinine Ratio Glucose Hemoglobin A1c 5.8 Calcium Troponin I 0.864 H* Triglycerides Cholesterol LDL Cholesterol VLDL Cholesterol HDL Cholesterol TSH 03/09/18 03/09/18 03/09/18 00:58 05:10 05:10 WBC 4.8 RBC 4.98 Hgb 13.6 Hct 42.8 MCV 85.9 MCH 27.3 MCHC 31.8 L RDW 13.4 RDW Differential 42.1 Plt Count 187 MPV 10.3 Immature Gran % (Auto) Neut % (Auto) Lymph % (Auto) Gregg % (Auto) Eos % (Auto) Baso % (Auto) Absolute Neuts (auto) Absolute Lymphs (auto) Total Counted PT INR APTT D-Dimer Quant (PE/DVT) Sodium 143 Potassium 3.7 Chloride 108 H Carbon Dioxide 27.0 Anion Gap 8 BUN 18 Creatinine 0.58 Estim Creat Clear Calc 89.07 Est GFR (MDRD) Af Amer 137 Est GFR (MDRD) Non-Af 113 BUN/Creatinine Ratio 31.1 H Glucose 82 Hemoglobin A1c Calcium 8.4 L Troponin I 0.708 H* Triglycerides 49 Cholesterol 182 LDL Cholesterol 110 VLDL Cholesterol 10 HDL Cholesterol 62 TSH 1.28 Discharge Diet: No Restrictions Disposition: Home Minutes spent on discharge:: 25 Patient Condition:: Stable Meaningful Use Info Meaningful Use Diagnoses (Choose all that apply): None applicable Code Visit OBSV E&M: 13731 Observation care discharge
--- OUTSIDE RECORDS SUMMARY | 2018-05-04 10:00 | XMS RPT_ITS | Continuity of Care Document ---
:1955 Author Organization [facility] Address [address] [place] [address] Phone Care Team Providers Name Role Phone Horace RAYMOND, Nehal Castellanos Unavailable Wilfrid VILLATORO Emily D Unavailable Marcelo RAYMOND, Dr. Munroe Unavailable Nina Estrada Unavailable Unavailable Unavailable Unavailable Problems Name Dates Details Abdominal pain, acute, left lower quadrant (Renamed from Acute abdominal pain in left lower quadrant) (R10.32, 789.04) Comments: think she has diverticulitis talk to her about and cause. not think in reporductive. did UA. willtreat with atb cmp yesterday good add some labs. tell side effects of augmentin will call tomorrow. if w sherrell will call my cellphone. due for colonscopy. will do after better. if worsen CT scan Status: Active Abnormal fasting glucose (R73.01, 790.29) Comments: doing weight eating less sugars and processed foods. lost weight. exercising with walk/jog 5 days a week. bike in summer right now starting maintenance. she has exercise instituted, weighing self daily, plan for loss. doing 80/20 Status: Active Abnormal laboratory test (R89.9, 796.4) Comments: elevated TMAO. eating alot red meat now. Status: Active Acquired vaginal enterocele (N81.5, 618.6) Status: Active BMI 23.0-23.9, adult (Z68.23, V85.1) Comments: BMI=23.2 Status: Active Current nonsmoker (Renamed from Current non-smoker) (Z78.9, V49.89) Status: Active Deliveries (Parity) Comments: 4 vaginal, Term Status: Active Diverticulitis (K57.92, 562.11) Comments: thik really what is and atb help talk about diet increase fiber can add metamucil dialy at this point doing so well with diet not want to have her pull out seeds because eat raw tree niuts and berries a ll thatis good for her and overall this is contraversial. Status: Active Dyspareunia in female (N94.10, 625.0) Comments: use coconut oil adn working well. Status: Active Encounter for hepatitis C virus screening test for high risk patient (Z11.59, V73.89) Status: Active Encounter for screening colonoscopy (Z12.11, V76.51) Comments: due in February 2018 Status: Active Goiter (E04.9, 240.9) Comments: stillthere but us good. increase overall size but no concnering nodules 2016 Status: Active Need for Tdap vaccination (Renamed from Need for tqekpjficu-slmhpbl-dhwsvnenb (Tdap) vaccine, adult/adolescent) (Z23, V06.1) Status: Active Postmenopausal (Renamed from Postmenopausal status) (Z78.0, V49.81) Status: Active Pregnancies () Comments: 4 Status: Active Screening mammogram, encounter for (Z12.31, V76.12) Status: Active Thyroid nodule (E04.1, 241.0) Comments: us good numerous times. Status: Active Uterine fibroid (D25.9, 218.9) Comments: had hysteroscopy and D and C with Dr. Robertson ultrasound 10-24 had fibroid benign no signs and symptoms now. no bleeding now Status: Active Vitamin D deficiency (E55.9, 268.9) Comments: takes in her multivitamin Status: Active Well woman exam (Renamed from Encounter for well woman exam) (Z01.419, V72.31) Comments: 05-25-17 [facility] Physical: mammogram 05-23-16, pap 05-06-16, colonoscopy Dr. Yuen 02/22 hx poly due 5, needs tdap updated, needs colonoscopy this february, PHQ-9=4 (minimal) , 6CIT=doing better with anxiety. time and working on [employer] Hendrickson and Shaneka Delacruz 1000 gifts. Status: Active Medications Name Dates Details Augmentin 875-125 MG Oral Tablet 1 Tablet Tablet bid for 14 days Quantity: 28 {Tablet} Refills: 0 Ordered:03-Feb-2018 Nina Estrada Start : 03-Feb-2018 Active CENTRUM ADULTS (Oral Tablet) 1 qd Active CIPRO, 500MG (Oral Tablet) 1 Tablet bid for 0 days Quantity: 20 {Tablet} Refills: 0 Ordered:19-Dec-2010 TIMMY Briceño Start : 06-Nov-2010 End : 19-Dec-2010 Inactive CIPROFLOXACIN HCL, 500MG (Oral Tablet) 1 (one) Tablet bid for 0 days Quantity: 20 {Tablet} Refills: 0 Ordered:12-Aug-2015 Josselyn Key LPN Start : 23-Jul-2015 End : 12-Aug-2015 Inactive DOXYCYCLINE HYCLATE, 100MG (Oral Capsule) 1 Capsule bid for 7 days Quantity: 14 {Capsule} Refills: 0 Ordered:10-Sep-2011 Horace RAYMOND, Nehal Lamas MD, Nehal Castellanos Start : 10-Sep-2011 End : 17-Sep-2011 Inactive FLOMAX, 0.4MG (Oral Capsule) 1 Capsule qd for 0 days Quantity: 7 {Capsule} Refills: 0 Ordered:19-Dec-2010 TIMMY Briceño Start : 06-Nov-2010 End : 19-Dec-2010 Inactive MULTIVITAMIN & MINERAL (Oral Liquid) Inactive PREDNISONE, 10MG (Oral Tablet) 3 (three) Tablet qd for 10 days then 2 pills for 3 days then 1 pill for 3 days for 0 days Refills: 0 Ordered:15-Jan-2012 TIMMY Briceño Start : 30-Sep-2011 End : 15-Jan-2012 Inactive Comments:with food in am PREDNISONE, 20MG (Oral Tablet) 1 Tablet uad for 0 days Refills: 0 Ordered:15-Jan-2012 TIMMY Briceño Start : 10-Sep-2011 End : 15-Jan-2012 Inactive Comments:2 a d for 5 d, 1 a d for 5d, 1/2 a d for 5 d Probiotic Daily Oral Capsule 1 qd Inactive Progesterone Micronized 200 MG Oral Capsule 1 qd for 0 days Refills: 0 Ordered:05-May-2016 TIMMY Briceño Start : 18-Jun-2015 End : 05-May-2016 Inactive TESSALON PERLES, 100MG (Oral Capsule) 1 Capsule tid prn for 0 days Quantity: 30 {Capsule} Refills: 0 Ordered:30-Aug-2012 Monroe GURUNataliia Start : 19-Apr-2012 End : 30-Aug-2012 Inactive VAGIFEM, 10MCG (Vaginal Tablet) 1 (one) Tablet one tablet in vagina twice weekly for 0 days Quantity: 24 {Tablet} Refills: 3 Ordered:18-Jun-2015 TIMMY Briceño Start : 16-Oct-2014 End : 18-Jun-2015 Inactive Vitamin D3 Super Strength 2000 UNIT Oral Capsule 1 (one) Capsule in am for 0 days Quantity: 30 {Capsule} Refills: 5 Ordered:08-Sep-2016 TIMMY Briceño Start : 05-May-2016 End : 08-Sep-2016 Inactive Allergies and Adverse Reactions Name Dates Details No Known Allergies (Allergy) Onset: 08-Feb-2018 Status: Active No Known Drug Allergies (Allergy) Status: Active Past Medical History Name Dates Details football knee 1974 Status: Inactive as of 18-Jun-2015 Abnormal vaginal bleeding (N93.9, 623.8) Comments: still bleedin but mother lat 61 yo. will chek us and labs seen griceldaashley in past Status: Inactive as of 18-Jun-2015 Acute cystitis without hematuria (N30.00, 595.0) Status: Inactive as of 05-May-2016 BMI 24.0-24.9, adult (Z68.24, V85.1) Status: Resolved as of 25-May-2017 BMI 25.0-25.9,adult (Z68.25, V85.21) Comments: doing well talk about 80/20 rule. weight self daily if gain 4 pounds restirct. exercisign walk/jog. biking. think about what exrcise do when weather bad. Status: Resolved as of 25-May-2017 BMI 26.0-26.9,adult (Z68.26, V85.22) Comments: 26.57 Status: Resolved as of 25-May-2017 BMI 29.0-29.9,adult (Z68.29, V85.25) Status: Resolved as of 25-May-2017 Breast cancer screening (Z12.39, V76.10) Status: Inactive as of 18-Jun-2015 Cerumen impaction (H61.20, 380.4) Status: Inactive as of 18-Jun-2015 Contact dermatitis due to poison cari (L23.7, 692.6) 30-Sep-2011 Status: Inactive as of 18-Jun-2015 Cough (R05, 786.2) Status: Inactive as of 18-Jun-2015 Foot pain (M79.673, 729.5) Comments: bilateral. worse in right. done nsaids strecthes, ice and good shoe wear. ? plater fascitis. worse at end of day not in am. to podaitry to assure right dx. then tape inject possible orthotics. Status: Inactive as of 18-Jun-2015 Urinary retention (R33.9, 788.20) Comments: postviod residual was better talk daniel robertson yesterday and not think cause increase UTI. with menapause soon will hopefully shrink fibriods. Status: Inactive as of 08-Sep-2016 Weight gain (R63.5, 783.1) Comments: think related to progesterone wll talk to marcelo about coming off this spring Status: Inactive as of 08-Sep-2016 Well woman exam (Z00.00, V70.0) Comments: wrote for mammo had colonscopy fall good. did pap today Status: Resolved as of 25-May-2017 WWV Comments: due for pap plan, needs mammo, lipids with insurance Status: Inactive as of 18-Jun-2015 Procedures Procedure Dates Details Cholecystectomy (Gall Bladder Removal) Completed Comments: HYSTEROSCOPY, WITH DILATION AND CURETTAGE Completed (63179) Comments: Dr. Robertson Left knee Completed Comments: repair when 18 years old football knee Date Value Details 22-Jun-2017 Dexa Bone Density Study (HP) Result: Comments: See Note; NOTES: [facility] Imaging Services [address] [place] [address] Dexa Bone Density Study (HP) MR#: [id number] Acct: [id number] Name: SAMI CAMPUZANO Rep #: [id number] : 1955 F 61 From: Ash Dennis MD PCP: Nehal Vu MD Status: REG CLI Study: Dexa Bone Density Study () Date of Exam: 06/22/17 Exam# [id number] Ordering Dr: Nehal Vu MD UDY: DUAL ENERGY X-RAY ABSORPTIOMETRY / DXA REASON FOR EXAM: Female, 61 years old. The patient is postmenopausal. Loss of height. TECHNIQUE: Bone Mineral Density (BMD) measurements of lumbar spine and bilateral hips were obtained. COMPARISON: None. FINDINGS: Lumbar Spine (L1-L4): g/cm2 (1.097) / T-score (-0.7) / Z-score (0.5) Findings are suggestive of normal b one density with a low fracture risk. Left Femur Total: g/cm2 (0.954) / T-score (-0.4) / Z-score (0.5) Left Femoral Neck: g/cm2 (1.056) / T-score (0.1) / Z- score (1.4) Right Femur Total: g/cm2 (0.991) / T-score (-0.1) / Z-score (0.8) Right Femoral Neck: g/cm2 (1.053) / T-score (0.1) / Z-score (1.3) HPBD/Dexa Bone Density Study (HP) IMPRESSION: The patient is considered normal as outlined below according to World Eugene Organization (WHO) criteria with a low fracture risk. Reference Information: The T-score is the number of standard deviations above or below the standard which is normal for young adults at their peak bone mineral density. The World Health Organization (WHO) interprets the T-scores as foll ows: Above -1 Normal bone density Between -1 and -2.5 Osteopenia Equal to / or below -2.5 Osteoporosis As a practical clinical guideline, osteopenia may be graded as follows: Mild -1 through -1.5 Mode rate -1.6 through -2.0 Severe -2.1 through -2.4 The Z-score is the number of standard deviations above or below age-matched controls. A Z-score of less than -1.5 would be considered abnormal. Referenc es: 1. NIH Osteoporosis and Related Bone Diseases http://www.osteo.org 2. International Society for Clinical Densitometry http://www.iscd.org 3. National Osteoporosis Foundation http://www.nof.org Elec tronically Signed: Ash Dennis MD at 13:01 EDT Tel [phone], Service support , CC: Nehal Vu MD Management Architect: Signed 22-Jun-2017 SCREENING MAMM (CAD), BILAT Result: Comments: See Note; NOTES: [facility] Imaging Services [address] [place] [id number] SCREENING MAMM (CAD), BILAT MR#: [id number] Acct: [id number] Name: SAMI CAMPUZANO Rep #: [id number] : 1955 F 61 From: Ash Dennis MD PCP: Nehal Vu MD Status: REG CLI Study: SCREENING MAMM (CAD), BILAT Date of Exam: 06/22/17 Exam# [id number] Ordering Dr: Nehal Vu MD MAMM OGRAPHY - BILATERAL SCREENING REASON FOR EXAM: Female, 61 years old. Routine annual screening examination. PERTINENT HISTORY: Aunt with breast cancer. TECHNIQUE: Digital bilateral breast lan (3D vladimir mographic acquisition) in the CC and MLO projections. 2-D mediolateral oblique (MLO) and craniocaudad (CC) views of both breasts were obtained. CAD: Full Field Digital Mammography with Computer Added De tection was performed. COMPARISON: Comparison is made with prior study dated May 23, 2016. FINDINGS: Breast Composition: The breasts are extremely dense, which lowers the sensitivity of mammography. There are no dominant masses or suspicious calcifications. No other significant abnormalities are identified. There has been no significant change since the zoë or study. HPBI/SCREENING MAMM (CAD), BILAT IMPRESSION: Stable bilateral screening mammogram. Yearly follow-up mammogram recommended. (A) ASSESSMENT CATEGORY: BIRADS Category 1: Negative. A letter regarding these results will be sent to the patient by the facility within 30 days. Approximately 10% of breast cancers are not detected by mammography. A normal mammogram should not delay biopsy of a clinically suspicious abnormality. [id number] Electronically Signed: Ash Dennis MD at 10:59 EDT Tel [phone], Service support , CC: Nehal Vu MD Management Architect: Signed 26-May-2016 Thyroid Result: Comments: See Note; NOTES: [facility] Imaging Services [address] [place] [address] Verdana 4d Thyroid MR#: [id number] Acct: [id number] Name: SAMI CAMPUZANO Rep #: [id number] : 1955 F 60 From: Reece Hadley DO PCP: Nehal Vu MD Status: REG CLI Study: Thyroid Date of Exam: 05/26/16 Exam# [id number] Ordering Dr: Nehal Vu MD STUDY: THYROID ULTRASOUND REASON FOR EX AM: Female, 60 years old. Thyroid nodules TECHNIQUE: Ultrasound evaluation of the thyroid was performed with real-time and static urias-scale imaging. COMPARISON: 06/11/2015 FINDINGS: RIGHT LOBE: The right lobe of the thyroid gland measures 8 x 2.6 x 2.9 cm. There is a heterogeneous echotexture. Stable lower pole solid nodule measuring 1.8 x 1.8 x 2.4 cm. LEFT LOB E: The left lobe of the thyroid gland measures 6.7 x 2.7 x 2.6 cm. There is a heterogeneous echotexture. Stable lower pole solid nodule measuring 1.5 x 1.5 x 1.6 cm. ISTHMUS: The isthmus measures 6 mm. The regional lymph nodes are normal. Increased vascularity of the thyroid bilaterally US/Thyroid IMPRESSION: As compared to the exam from last year, increased overall size of the thyroid. Stable nodules. Increased vascularity bilaterally. Electronically Signed: Reece Hadley DO at 21:36 EST Tel , Service support [phone], CC: Nehal Vu MD Management Architect: Signed 23-May-2016 SCREENING MAMM (CAD), BILAT Result: Comments: See Note; NOTES: [facility] Imaging Services [address] [place] [address] Verdana 4d SCREENING MAMM (CAD), BILAT MR#: [id number] Acct: [id number] Name: SAMI CAMPUZANO #: [id number] : 1955 F 60 From: Ash Dennis MD PCP: Nehal Vu MD Status: [facility] [facility] Study: SCREENING MAMM (CAD), BILAT Date of Exam: 05/23/16 Exam# [id number] Ordering Dr: Rojelio Vu MD MAMMOGRAPHY - BILATERAL SCREENING REASON FOR EXAM: Female, 60 years old. Routine annual screening examination. PERTINENT HISTORY: Aunt with breast cancer. TECHNIQUE: Digital bilateral breast t pernell (3D mammographic acquisition) in the CC and MLO projections. 2-D mediolateral oblique (MLO) and craniocaudad (CC) views of both breasts were obtained. CAD: Full Field Digital Mammography with Comput er Added Detection was performed. COMPARISON: Comparison is made with prior examination dated July 21, 2007. FINDINGS: Breast Composition: The breasts are heteroge neously dense, which may obscure small masses. There are no dominant masses or suspicious calcifications. No other significant abnormalities are identified. There has been no significant change since the prior study. HPBI/SCREENING MAMM (CAD), BILAT IMPRESSION: Stable bilateral screening mammogram. Yearly follow-up mammogram recommended. (A) ASSESSMENT CATEGORY: BIRADS Category 1: Negative. A letter regarding these results will be sent to the patient by the facility within 30 days. Approximately 10% of breast cancers are not detected by mammography. A normal mammogram should not delay biopsy of a clinically suspicious abnormality. [id number] Electronically Signed: Ash Dennis MD at 8: 08 EST Tel [phone], Service support [phone], CC: Nehal Vu MD Management Architect: Signed 11-Jun-2015 Thyroid Result: Comments: See Note; NOTES: [facility] Imaging Services [address] [place] [address] Verdana 4d Thyroid MR#: [id number] Acct: [id number] Name: SAMI CAMPUZANO Rep #: [id number] : 1955 F 59 From: Ash Dennis MD PCP: Nehal Vu MD Status: REG CLI Study: Thyroid Date of Exam: 06/11/15 Exam# [id number] Ordering Dr: Nehal Vu MD STUDY: THYROID ULTRASOUND REASON FOR EXAM: Female, 59 years old. Thyroid nodules. TECHNIQUE: Ultrasound evaluation of the thyroid was performed with real-time and static urias-scale imaging. COMPARISON: Compari son is made with prior study dated October 23, 2014. FINDINGS: RIGHT LOBE: The right lobe of the thyroid gland is enlarged and measures 6.7 cm x 2.8 cm x 2.6 cm. T here is a heterogeneous echotexture. Which again, there are 2 hypoechoic solid nodules in the lower lobe. The larger measures 2.1 cm x 1.8 cm x 1.6 cm. Adjacent to this, there is a stable 1.6 cm x 1. 7 cm x 1.5 cm solid nodule. Increased vascularity is seen. LEFT LOBE: The left lobe of the thyroid gland is enlarged and measures 6.6 cm x 2.3 cm x 2.9 cm. There is a heterogeneous echotexture. There is a hypoechoic solid nodule measuring 1.3 cm x 1.6 cm x 1.0 cm. This is in the lower lobe. Increased vascularity is seen. ISTHMUS: The isthmus measures 7.0 mm. The regional lymph nodes are annita l. IMPRESSION: Stable examination demonstrating stable bilateral thyroid nodules and thyroid enlargement Electronically Signed: Ash Dennis MD 06/10 at 15:52 EST Tel [phone], Service support [phone], CC: Nehal Vu MD Management Architect: Signed 11-Jan-2015 Operative Report Result: Comments: See Note; NOTES: [facility] Medical Records Department [address] [place] [address] Operative Report MR#: [id number] Acct: [id number] Name: SAMI CAMPUZANO Rep #: [id number] : 1955 59 From: Nayeli Robertson MD PCP: Nehal Vu MD Status: [facility] DATE OF SERVICE: 01/08/2015 DATE OF SERVICE: January 08, 2015 PREOPERATIVE DIAGNOSES: Uterine leio myoma and postmenopausal bleeding. POSTOPERATIVE DIAGNOSES: Uterine leiomyoma and postmenopausal bleeding plus thickened endometrium. PROCEDURES: Dilatation and curettage, hysteroscopy. SURGEON: Nayeli Robertson M.D. ESTIMATED BLOOD LOSS: Minimal. FLUIDS: Lactated Ringer's. MEDICATIONS: Include 1% local to the cervix. ANESTHESIA: MAC anesthetic and urine is 50 mL of clear urine. IN DICATION: The patient is a 59-year-old white female, who has a known history of multiple uterine leiomyoma as an etiology to enlarged uterus, but having postmenopausal bleeding, initially presented t hinking she was having irregular menstrual cycles, but serum hormonal testing revealed that she is actually postmenopausal. A post-bleed ultrasound revealed that she had thickened endometrium and she was consented for and accepted the risks of procedure of D and C, hysteroscopy. DESCRIPTION OF PROCEDURE: On the day surgery, the patient was taken to the operating room where she received a MAC an esthetic. Once found to be adequate, she was placed in dorsal lithotomy position via the Mathew stirrups, prepped, draped in normal sterile fashion. Bladder had been emptied of remaining urine with a s traight rubber catheter. Anterior lip of the cervix was grasped and elevated, 10 mL of 1% local lidocaine was placed to the cervix in the 4 quadrants. The patient tolerated well. Uterus was sounded to approximately 12 cm in anteflex position. The cervical os was easily dilated to accommodate a 5 mm hysteroscope placed into the endometrial cavity with consistent thickening of the tissue around the entire endometrial cavity, which was quite large. Hysteroscope was replaced by sharp curettage of the entire endometrial cavity and collection of that tissue. This was sent away for pathological eval uation. Replacement of the hysteroscope into the endometrium revealed removal of all tissue. Hysteroscope was removed. Sponge, instrument, needle counts correct x2. The patient was awakened in stable condition and taken to recovery room to be discharged home. I will follow up in the office in 1-2 weeks' time. Nayeli Robertson MD T: NTS JOB: [id number] 01/11/15 0949 <Electronically sign ed by Nayeli Robertson MD> Date Nayeli Robertson MD Cosigner Signature (If Indicated): Date CC: Nayeli Robertson MD; Nehal Vu MD Date Dictated: 01/08/151540 Date Transcribed: 01/08/151540 Management Architect: Signed 08-Jan-2015 Discharge Instruction Result: Comments: See Note; NOTES: [facility] Medical Records Department [address] [place] [address] Instructions for Home/Discharge Instructions 01/08/151515 MR#: [id number] Ac ct: [id number] Name: SAMI CAMPUZANO Rep #: [id number] : 1955 59 From: Nayeli Robertson MD PCP: Nehal Vu MD Status: REG [facility] Discharge Diet: No Restrictions Discharge Activity: Return to No rmal Activity, May Shower, May Take a Tub Bath - in 2 weeks. May shower in (days): 0 - now May resume sexual activity in: 10-14 days Weight Bearing Status: Full weight bearing Lifting Restrictions: none Cleanse incision/area with: Soap AND Water Allergies/Adverse Reactions: Allergies No Known Allergies Allergy (Verified 01/08/15 13:52) Medications to take at Discharge Multivitamins,Ther apeutic [Multivitamin] 1 tablet PO DAILY 01/02/15 Please Follow Up With: Nayeli Robertson When: 1-2 weeks in office 01/08/151516 <Electronically signed by Nayeli Robertson MD> Date Nayeli Robertson MD CC: Nehal Vu MD 08-Jan-2015 Operative Report Result: Comments: See Note; NOTES: [facility] Medical Records Department [address] [place] [address] Operative Report 01/08/151513 MR#: [id number] Acct: [id number] Name: SAMI CAMPUZANO Rep #: [id number] : 1955 59 From: Nayeli Robertson MD PCP: Nehal Vu MD Status: REG [facility] Y Location: [place] [address] Operative Report (Blank) Date of Procedure: 01/08/15 Preop: Uterin e leiomyoma and postmenopausal bleeding Postop: Same + thickened endometrium Procedure: D and C, hysteroscopy Surgeon: Marcelo EBL: minimal Fluids: Lactated ringers Meds: 1% Lidocaine local to the cervix Anesthesia: MAC Urine: 50cc 01/08/15 1516 <Electronically signed by Nayeli Robertson MD> Date Nayeli Robertson MD CC: Nayeil Robertson MD; Nehal Vu MD Signed 23-Oct-2014 Pelvic (Non ) Result: Comments: See Note; NOTES: [facility] Imaging Services [address] [facility] [place] [address] Ultrasound Report MR#: [id number] Acct: [id number] Name: SAMI CAMPUZANO Rep #: [id number] : 1955 F 59 From: Ash Dennis MD PCP: Nehal Vu MD Status: REG CLI Study: Pelvic (Non ) Date of Exam: 10/23/14 Exam# [id number] Ordering Dr: Nehal Vu MD ADDENDU M by Ash Dennis MD on 10/25/14 at 1556 ADDENDUM This is an addendum report. Prior exa mination of the pelvis was made available for comparison. Since prior study, the uterus has increased in size there are the previously seen fibroids have increased in size as well . Electronically Signed: Ash Dennis MD at 15:56 EDT Tel [phone], Service support [phone], 10/25/14 1556 Date cc: Nehal Vu MD * Signed BENNY DY: ULTRASOUND OF THE FEMALE PELVIS - COMPLETE REASON FOR EXAM: Female, 59 years old. LMP: March 2014. Fibroid uterus. TECHNIQUE: Transabdominal TECHNICAL QUALITY: Adequate. COMPARISON: None . FINDINGS: The uterus is anteverted and is in a midline position. The uterus is enlarged and measures 20.7 cm x 11.5 cm x 7.9 cm. Normal uterine cervix. The en dometrium measures 8.2 mm in thickness, and is hyperechoic. There is no demonstrated endometrial mass. 2 large fibroids are seen. The largest measures 10.5 cm x 11.4 cm x 6.6 cm. I.U.D. - The patient does not have an I.U.D. The right ovary is visualized. The right ovary measures 4.1 cm x 3.1 cm x 2.9 cm. There is evidence of a right ovarian cyst measuring 2.6 cm x 2.4 cm x 2.7 cm. There is no v isualized right adnexal mass or complex lesion. There is normal arterial and normal venous vascularity. The left ovary is visualized. The left ovary measures 3.3 cm x 3.2 cm x 1.9 cm. A follicle is seen within the ovary. There is no visualized left adnexal mass or complex lesion. There is normal arterial and normal venous vascularity. There is no fluid in the cul-de-sac. IMPRESSION: Enlarged fibroid uterus there are the larger fibroid measures 10.5 cm x 11.4 cm x 6.6 cm. Right ovarian cyst. Electronically Signed: Ash Dennis MD 5 at 13:27 EDT Tel [phone], Service support [phone], CC: Nehal Vu MD Management Architect: Signed 23-Oct-2014 Pelvic (Non ) Result: Comments: See Note; NOTES: [facility] Imaging Services [address] [place] [address] Ultrasound Report MR#: [id number] Acct: [id number] Name: SAMI CAMPUZANO Rep #: [id number] 3 : 1955 F 59 From: Ash Dennis MD PCP: Nehal Vu MD Status: REG CLI Study: Pelvic (Non ) Date of Exam: 10/23/14 Exam# [id number] Ordering Dr: Nehal Vu MD STUDY: ULTRASOUND OF THE FEMALE PELVIS - COMPLETE REASON FOR EXAM: Female, 59 years old. LMP: March 2014. Fibroid uterus. TECHNIQUE: Transabdominal TECHNICAL QUALITY: Adequate. COMPARISON: None. _ FINDINGS: The uterus is anteverted and is in a midline position. The uterus is enlarged and measures 20.7 cm x 11.5 cm x 7.9 cm. Normal uterine cervix. The endome trium measures 8.2 mm in thickness, and is hyperechoic. There is no demonstrated endometrial mass. 2 large fibroids are seen. The largest measures 10.5 cm x 11.4 cm x 6.6 cm. I.U.D. - The patient does not have an I.U.D. The right ovary is visualized. The right ovary measures 4.1 cm x 3.1 cm x 2.9 cm. There is evidence of a right ovarian cyst measuring 2.6 cm x 2.4 cm x 2.7 cm. There is no visua lized right adnexal mass or complex lesion. There is normal arterial and normal venous vascularity. The left ovary is visualized. The left ovary measures 3.3 cm x 3.2 cm x 1.9 cm. A follicle is seen within the ovary. There is no visualized left adnexal mass or complex lesion. There is normal arterial and normal venous vascularity. There is no fluid in the cul-de-sac. IMPRESSION: Enlarged fibroid uterus there are the larger fibroid measures 10.5 cm x 11.4 cm x 6.6 cm. Right ovarian cyst. Electronically Signed: Ash Dennis MD at 13:27 EDT Tel [phone], Service support [phone], CC: Nehal Vu MD Management Architect: Signed 23-Oct-2014 Thyroid Result: Comments: See Note; NOTES: [facility] Imaging Services [address] [place] [address] Ultrasound Report MR#: [id number] Acct: [id number] Name: SAMI CAMPUZANO Rep #: [id number] 3 : 1955 F 59 From: Ash Dennis MD PCP: Nehal Vu MD Status: REG CLI Study: Thyroid Date of Exam: 10/23/14 Exam# [id number] Ordering Dr: Nehal Vu MD STUDY: THYROID ULTRAS OUND REASON FOR EXAM: Female, 59 years old. Thyroid enlargement. TECHNIQUE: Ultrasound evaluation of the thyroid was performed with real-time and static urias-scale imaging. COMPARISON: None. ___ FINDINGS: RIGHT LOBE: The right lobe of the thyroid gland is enlarged and measures 7.8 cm x 2.9 cm x 2.8 cm. There is a heterogeneous echotexture. There are 2 hypo echoic solid nodules within the right lobe. The larger measures 1.6 cm 1.97 x 1.6 cm. Adjacent to this, there is a 1.5 cm x 1.8 cm x 1.8 cm hypoechoic solid nodule with apparent nodular vascularity. LEFT LOBE: The left lobe of the thyroid gland is enlarged and measures 7.5 cm x 3.0 cm x 2.9 cm. There is a heterogeneous echotexture. There is at least one hypoechoic solid nodule measuring 1.4 cm x 1.4 cm x 0.9 cm. There is evidence of increased compared nodular vascularity. ISTHMUS: The isthmus measures 6.0 mm. The regional lymph nodes are normal. IMP RESSION: The thyroid is enlarged with bilateral hypoechoic solid nodules more prominent in the right lobe. Electronically Signed: Ash Dennis MD at 14:04 EDT Tel [phone], Se rvice support [phone], CC: Nehal Vu MD Management Architect: Signed Immunization Name Dates Details Td (7 years and up) on: 26-Apr-2007 Comments: given in left deltoid, lot#[id number], exp.09.22.07--WF Family History Unknown Family Member Name Dates Details Brother 1 Comments: hypercholesterolemia, type II diabetes, HTN Status: Active Brother 2 Comments: hypercholesterolemia, type II diabetes, HTN Status: Active Brother 3 Comments: depression Status: Active Brother 4 Comments: hx. kidney stones Status: Active Father Comments: Collagens Karina's granulomatous Disease age 64 Status: Active First Degree Relatives Comments: paternal side cardiovascular disease maternal side colon cancerhad cousins that had stomach cancer (moms side age 35) cousin (maternal /paternal) male cancer in early 50's (not know what kind) both cousins Status: Active maternal aunt breast cancer 60 yo Status: Active Maternal Grandfather Comments: PE age 76 Status: Active Maternal Grandmother Comments: stomach cancer at age 68, HTN, type II diabetes Status: Active Mother Comments: arthritis, HTN Status: Active Paternal Grandfather Comments: Status: Active Paternal Grandmother Comments: [place] age 76 Status: Active Sister 1 Comments: borderline HTN Status: Active Sister 2 Comments: irregular heart beat (on medication) Status: Active Sister 3 Comments: healthy Status: Active Sister 4 Comments: healthy Status: Active Social History Name Dates Details Caffeine Use Comments: 1 cup green tea qd Status: Active Current Work/Study Status Comments: 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 Status: Active Living Situation Comments: , Lives with spouse Status: Active No Drug Use Status: Active Non Drinker/No Alcohol Use Status: Active Non Smoker/No Tobacco Use Status: Active Tobacco use: Never smoker. Status: Active Smoking Status Name Dates Details Never smoker Vital Signs Date Test Result Details :21 Temperature 97.6 f Comments: Method: Temporal Pulse 64 /min Comments: Pattern: Regular Respiration Rate 16 /min Comments: Pattern: Unlabored O2 SAT 98 % Comments: Room air BP Systolic 106 mm[Hg] Comments: Patient Position: Sitting; Cuff Location: Left Arm; Cuff Size: Standard BP Diastolic 68 mm[Hg] Comments: Patient Position: Sitting; Cuff Location: Left Arm; Cuff Size: Standard Weight 135 lb Height 63 in Body Mass Index Calculated 23.91 kg/m2 Body Surface Area Calculated 1.64 m2 :12 Temperature 98.9 f Comments: Method: Oral Pulse 56 /min Comments: Pattern: Regular Respiration Rate 18 /min O2 SAT 99 % Comments: Room air BP Systolic 118 mm[Hg] Comments: Patient Position: Sitting BP Diastolic 68 mm[Hg] Comments: Patient Position: Sitting :25 Temperature 97.8 f Comments: Method: Temporal Pulse 70 /min Comments: Pattern: Regular Respiration Rate 20 /min Comments: Pattern: Unlabored O2 SAT 97 % Comments: Room air BP Systolic 104 mm[Hg] Comments: Patient Position: Sitting; Cuff Location: Left Arm; Cuff Size: Standard BP Diastolic 70 mm[Hg] Comments: Patient Position: Sitting; Cuff Location: Left Arm; Cuff Size: Standard Weight 131 lb Height 63 in Body Mass Index Calculated 23.21 kg/m2 Body Surface Area Calculated 1.62 m2 :01 Temperature 97.6 f Comments: Method: Temporal Pulse 54 /min Comments: Pattern: Regular Respiration Rate 18 /min Comments: Pattern: Unlabored O2 SAT 98 % Comments: Room air BP Systolic 108 mm[Hg] Comments: Patient Position: Sitting; Cuff Location: Left Arm; Cuff Size: Standard BP Diastolic 60 mm[Hg] Comments: Patient Position: Sitting; Cuff Location: Left Arm; Cuff Size: Standard Weight 136 lb Height 63 in Body Mass Index Calculated 24.09 kg/m2 Body Surface Area Calculated 1.64 m2 :23 Weight 142.5 lb Height 63 in Body Mass Index Calculated 25.24 kg/m2 Body Surface Area Calculated 1.67 m2 :18 Temperature 97 f Comments: Method: Temporal Pulse 62 /min Comments: Pattern: Regular Respiration Rate 20 /min Comments: Pattern: Unlabored O2 SAT 98 % Comments: Room air BP Systolic 114 mm[Hg] Comments: Patient Position: Sitting; Cuff Location: Left Arm; Cuff Size: Standard BP Diastolic 74 mm[Hg] Comments: Patient Position: Sitting; Cuff Location: Left Arm; Cuff Size: Standard Weight 150 lb Height 63 in Body Mass Index Calculated 26.57 kg/m2 Body Surface Area Calculated 1.71 m2 :28 Temperature 97.6 f Comments: Method: Temporal Pulse 58 /min Comments: Pattern: Regular Respiration Rate 20 /min Comments: Pattern: Unlabored O2 SAT 98 % Comments: Room air BP Systolic 104 mm[Hg] Comments: Patient Position: Sitting; Cuff Location: Left Arm; Cuff Size: Standard BP Diastolic 64 mm[Hg] Comments: Patient Position: Sitting; Cuff Location: Left Arm; Cuff Size: Standard Weight 169 lb Height 63 in Body Mass Index Calculated 29.94 kg/m2 Body Surface Area Calculated 1.8 m2 :23 Temperature 96.6 f Comments: Method: Temporal Pulse 63 /min Comments: Pattern: Regular Respiration Rate 15 /min Comments: Pattern: Unlabored O2 SAT 98 % Comments: Room air BP Systolic 116 mm[Hg] Comments: Patient Position: Sitting; Cuff Location: Left Arm; Cuff Size: Standard BP Diastolic 70 mm[Hg] Comments: Patient Position: Sitting; Cuff Location: Left Arm; Cuff Size: Standard Weight 167 lb Height 63 in Body Mass Index Calculated 29.58 kg/m2 Body Surface Area Calculated 1.79 m2 :19 Temperature 97.6 f Comments: Method: Temporal Pulse 68 /min Comments: Pattern: Regular Respiration Rate 18 /min Comments: Pattern: Unlabored O2 SAT 97 % Comments: Room air BP Systolic 110 mm[Hg] Comments: Patient Position: Sitting; Cuff Location: Left Arm; Cuff Size: Standard BP Diastolic 70 mm[Hg] Comments: Patient Position: Sitting; Cuff Location: Left Arm; Cuff Size: Standard Weight 169 lb Height 63 in Body Mass Index Calculated 29.94 kg/m2 Body Surface Area Calculated 1.8 m2 :29 Temperature 98.6 f Comments: Method: Temporal Pulse 57 /min Comments: Pattern: Regular Respiration Rate 16 /min Comments: Pattern: Unlabored O2 SAT 98 % Comments: Room air BP Systolic 120 mm[Hg] Comments: Patient Position: Sitting; Cuff Location: Left Arm; Cuff Size: Standard BP Diastolic 66 mm[Hg] Comments: Patient Position: Sitting; Cuff Location: Left Arm; Cuff Size: Standard Weight 161.4 lb Height 63 in Body Mass Index Calculated 28.59 kg/m2 Body Surface Area Calculated 1.77 m2 :51 Pulse 66 /min Comments: Pattern: Regular Respiration Rate 16 /min O2 SAT 97 % Comments: Room air BP Systolic 120 mm[Hg] Comments: Patient Position: Sitting; Cuff Location: Left Arm; Cuff Size: Standard BP Diastolic 78 mm[Hg] Comments: Patient Position: Sitting; Cuff Location: Left Arm; Cuff Size: Standard Weight 160 lb Height 63 in Body Mass Index Calculated 28.34 kg/m2 Body Surface Area Calculated 1.76 m2 :02 Temperature 98.9 f Comments: Method: Oral Pulse 64 /min Comments: Pattern: Regular Respiration Rate 18 /min O2 SAT 98 % Comments: Room air BP Systolic 122 mm[Hg] Comments: Patient Position: Sitting; Cuff Location: Left Arm; Cuff Size: Standard BP Diastolic 78 mm[Hg] Comments: Patient Position: Sitting; Cuff Location: Left Arm; Cuff Size: Standard Weight 160 lb Height 63 in Body Mass Index Calculated 28.34 kg/m2 Body Surface Area Calculated 1.76 m2 :42 Temperature 98.4 f Pulse 92 /min Comments: Pattern: Regular Respiration Rate 16 /min Comments: Pattern: Unlabored BP Systolic 120 mm[Hg] Comments: Patient Position: Sitting; Cuff Location: Left Arm; Cuff Size: Standard BP Diastolic 70 mm[Hg] Comments: Patient Position: Sitting; Cuff Location: Left Arm; Cuff Size: Standard Weight 160 lb Height 63 in Body Mass Index Calculated 28.34 kg/m2 Body Surface Area Calculated 1.76 m2 :17 Temperature 98.2 f Comments: Method: Oral Pulse 70 /min Comments: Pattern: Regular Respiration Rate 18 /min Comments: Pattern: Unlabored BP Systolic 112 mm[Hg] Comments: Patient Position: Sitting; Cuff Location: Left Arm; Cuff Size: Standard BP Diastolic 70 mm[Hg] Comments: Patient Position: Sitting; Cuff Location: Left Arm; Cuff Size: Standard Weight 160 lb Height 63 in Body Mass Index Calculated 28.34 kg/m2 Body Surface Area Calculated 1.76 m2 :58 Temperature 98.3 f Comments: Method: Oral Pulse 64 /min Comments: Pattern: Regular Respiration Rate 18 /min Comments: Pattern: Unlabored BP Systolic 114 mm[Hg] Comments: Patient Position: Sitting; Cuff Location: Left Arm; Cuff Size: Standard BP Diastolic 68 mm[Hg] Comments: Patient Position: Sitting; Cuff Location: Left Arm; Cuff Size: Standard Weight 160 lb Height 63 in Body Mass Index Calculated 28.34 kg/m2 Body Surface Area Calculated 1.76 m2 :32 Temperature 98.8 f Comments: Method: Oral Pulse 72 /min Comments: Pattern: Regular Respiration Rate 17 /min Comments: Pattern: Unlabored BP Systolic 118 mm[Hg] Comments: Patient Position: Sitting; Cuff Location: Left Arm; Cuff Size: Standard BP Diastolic 70 mm[Hg] Comments: Patient Position: Sitting; Cuff Location: Left Arm; Cuff Size: Standard Weight 160 lb Height 63 in Body Mass Index Calculated 28.34 kg/m2 Body Surface Area Calculated 1.76 m2 :14 Temperature 97.6 f Comments: Method: Oral Pulse 68 /min Comments: Pattern: Regular Respiration Rate 18 /min Comments: Pattern: Unlabored BP Systolic 128 mm[Hg] Comments: Patient Position: Sitting; Cuff Location: Left Arm; Cuff Size: Standard BP Diastolic 68 mm[Hg] Comments: Patient Position: Sitting; Cuff Location: Left Arm; Cuff Size: Standard Weight 160 lb :34 Temperature 98.2 f Comments: Method: Oral Pulse 86 /min Comments: Pattern: Regular Respiration Rate 18 /min Comments: Pattern: Unlabored BP Systolic 120 mm[Hg] Comments: Patient Position: Sitting; Cuff Location: Left Arm; Cuff Size: Standard BP Diastolic 80 mm[Hg] Comments: Patient Position: Sitting; Cuff Location: Left Arm; Cuff Size: Standard Weight 160 lb Height 0 in Head Circumference 0.00 cm :09 Temperature 98.4 f Comments: Method: Oral Pulse 70 /min Comments: Pattern: Regular Respiration Rate 18 /min Comments: Pattern: Unlabored BP Systolic 120 mm[Hg] Comments: Patient Position: Sitting; Cuff Location: Left Arm; Cuff Size: Standard BP Diastolic 78 mm[Hg] Comments: Patient Position: Sitting; Cuff Location: Left Arm; Cuff Size: Standard Weight 158 lb Height 63 in Body Mass Index Calculated 27.99 kg/m2 Body Surface Area Calculated 1.75 m2 Head Circumference 0.00 cm Results Date Description Value Details :45 CBC W/Diff, Automated Comments: [facility] [address] [place], [place], [id number] Absolute Lymph 0.66 {X10_3/ul} (Abnormal) Range: 0.83-4.51 Absolute Neut 6.9 {X10_3/uL} (Normal) Range: 2.0-7.7 IM GRAN % 0.000 % (Normal) Range: 0.0-0.9 Comments: IG% - Immature Granulocytes (promyelocytes, myelocytes andmetamyelocytes) > 1% indicates that a LEFT SHIFT is Present. BASO% 0.1 % (Normal) Range: 0-1 EO% 0.1 % (Normal) Range: 0-5 MONO% 10.8 % (Abnormal) Range: 0-10 LY% 7.8 % (Abnormal) Range: 19-41 NEUT% 81.2 % (Abnormal) Range: 47-70 MPV 10.8 fL (Normal) Range: 6.2-12.0 PLT 171 K/mm3 (Normal) Range: 150-450 RDW SD 41.9 fL (Normal) Range: 35.1-43.9 RDW CV 13.1 % (Normal) Range: 11.6-14.6 MCHC 31.5 {g/gl} (Abnormal) Range: 32-36 MCH 27.5 pg (Normal) Range: 27.0-32.0 MCV 87.3 fL (Normal) Range: 81-99 HCT 39.7 % (Normal) Range: 37-47 HGB 12.5 g/dL (Normal) Range: 12.0-15.0 RBC 4.55 {M/mm3} (Normal) Range: 4.2-5.4 WBC 8.5 K/mm3 (Normal) Range: 4.4-11.0 :45 Lipase (35827) Comments: [facility] [address] [place], [place], [id number] LIPASE 77 U/L (Normal) Range: 73-393 :45 Amylase (59107) Comments: [facility] [address] [place], [place], [address] MICHELL 74 U/L (Normal) Range: 25-115 :26 Urinalysis, Office (35767) UA - LEUKOCYTE ESTERASE Negative (Normal) UA - NITRITE Negative (Normal) URINE UROBILINGN CHUY TIMED 2 mg/dL (Normal) UA - PROTEIN Negative mg/dL (Normal) UA - PH 6.5 (Normal) UA - BLOOD Negative (Normal) UA - SPECIFIC GRAVITY 1.005 (Normal) UA - KETONES Negative mg/dL (Normal) UA - BILIRUBIN Negative (Normal) UA - GLUCOSE Negative (Normal) :58 METABOLIC PANEL, COMPREHENSIVE Comments: PATIENT WAS FASTINGPERFORMED BY: [facility] CenterKnftpp[facility]118 [facility] [id number] ([id number]) ALT (SGPT) 15 [iU]/L (Normal) Range: 0-32 AST (SGOT) 17 [iU]/L (Normal) Range: 0-40 Alkaline Phosphatase 97 [iU]/L (Normal) Range: 39-117 Bilirubin, Total 0.6 mg/dL (Normal) Range: 0.0-1.2 A/G Ratio 1.6 (Normal) Range: 1.2-2.2 Globulin, Total 2.6 g/dL (Normal) Range: 1.5-4.5 Albumin 4.2 g/dL (Normal) Range: 3.6-4.8 Protein, Total 6.8 g/dL (Normal) Range: 6.0-8.5 Calcium 9.3 mg/dL (Normal) Range: 8.7-10.3 Carbon Dioxide, Total 25 mmol/L (Normal) Range: 20-29 Chloride 100 mmol/L (Normal) Range: 96-106 Potassium 4.0 mmol/L (Normal) Range: 3.5-5.2 Sodium 141 mmol/L (Normal) Range: 134-144 BUN/Creatinine Ratio 26 (Normal) Range: 12-28 eGFR If Africn Am 116 mL/min/1.73 (Normal) eGFR If NonAfricn Am 101 mL/min/1.73 (Normal) Creatinine 0.58 mg/dL (Normal) Range: 0.57-1.00 BUN 15 mg/dL (Normal) Range: 8-27 Glucose 86 mg/dL (Normal) Range: 65-99 44-Tbn-80722:56 LIPOPROTEIN, BLD, BY NMR Comments: PATIENT WAS FASTINGPERFORMED BY: [facility] [id number] ([id number]) LP-IR Score <25 (Normal) Comments: INSULIN RESISTANCE MARKER <--Insulin Sensitive Insulin Resistant--> Percentile in Reference PopulationInsulin Resistance ScoreLP-IR Score Low 25th 50th 75th High <27 27 45 63 >63LP-IR Score is inaccurate if patient is non-fasting. .The LP-IR score is a laboratory developed i [facility] that has beenassociated with insulin resistance and diabetes risk and should beused as one component of a physician's clinical assessment. TheLP-IR score listed above has not been cleared by the [place] Food andDrug Administration. LDL Size 21.1 nm (Normal) Comments: INTERPRETATIVE INFORMATION PARTICLE CONCENTRATION AND SIZE <--Lower CVD Risk Highe r CVD Risk--> LDL AND HDL PARTICLES Percentile in Reference Population HDL-P (total) High 75th 50th 25th Low >34.9 34.9 30.5 26.7 <26.7 . Small LDL-P Low 25th 50th 75th High <117 117 527 839 >839 . LDL Size <-Large (Pattern A)-> <-Small (Pattern B)-> 23.0 20.6 20.5 19.0 Small LDL-P and LDL Size are associated with CVD risk, but not afterLDL-P is taken into account. .These assays were developed and their performance characteristicsdetermined by [employer]. These assays have not been cleared by [place] Food and Drug Administration. The clinical utility of theselaboratory values have not been fully established. Small LDL-P 251 nmol/L (Normal) HDL-P (Total) 36.5 umol/L (Normal) Cholesterol, Total 182 mg/dL (Normal) Range: 100-199 Triglycerides 48 mg/dL (Normal) Range: 0-149 HDL-C 60 mg/dL (Normal) LDL-C 112 mg/dL (Abnormal) Range: 0-99 Comments: . Optimal < 100 Above optimal 100 - 129 Borderline 1 30 - 159 High 160 - 189 Very high > 189 .LDL-C is inaccurate if patient is non-fasting. LDL-P 1006 nmol/L (Abnormal) Comments: Low < 1000 Moderate 1000 - 1299 Borderline-High 1300 - 1599 High 1600 - 2000 Very High > 2000 [id number]-Ajy-[id number]:04 MICROALBUMIN: CREATININE RATIO Comments: PATIENT NOT FASTINGPERFORMED BY: [facility] [id number] ([id number]) AND (47485) Alb/Creat Ratio MALD2 {mg/g_creat} Range: 0.0-30.0 (Abnormal) Comments: The result is below the assay's limit of quantitation which mayindicate a dilute specimen or other clinical condition. Considerrecollection at a time likely to provide a urine that is moreco ncentrated. Albumin, Urine <3.0 ug/mL (Normal) Creatinine, Urine 8.3 mg/dL (Normal) 52-Wvb-288982:04 Metabolic Panel, Comprehensive Comments: PATIENT NOT FASTINGPERFORMED BY: [id number] [id number] ([id number]) ALT (SGPT) 19 [iU]/L (Normal) Range: 0-32 AST (SGOT) 21 [iU]/L (Normal) Range: 0-40 Alkaline Phosphatase, S 80 [iU]/L (Normal) Range: 39-117 Bilirubin, Total 0.5 mg/dL (Normal) Range: 0.0-1.2 A/G Ratio 1.8 (Normal) Range: 1.2-2.2 Globulin, Total 2.4 g/dL (Normal) Range: 1.5-4.5 Albumin, Serum 4.4 g/dL (Normal) Range: 3.5-5.5 Protein, Total, Serum 6.8 g/dL (Normal) Range: 6.0-8.5 Calcium, Serum 9.1 mg/dL (Normal) Range: 8.7-10.2 Carbon Dioxide, Total 24 mmol/L (Normal) Range: 18-29 Chloride, Serum 103 mmol/L (Normal) Range: 96-106 Potassium, Serum 3.8 mmol/L (Normal) Range: 3.5-5.2 Sodium, Serum 144 mmol/L (Normal) Range: 134-144 BUN/Creatinine Ratio 31 (Abnormal) Range: 9-23 eGFR If Africn Am 117 mL/min/1.73 (Normal) eGFR If NonAfricn Am 101 mL/min/1.73 (Normal) Creatinine, Serum 0.58 mg/dL (Normal) Range: 0.57-1.00 BUN 18 mg/dL (Normal) Range: 6-24 Glucose, Serum 88 mg/dL (Normal) Range: 65-99 22-Vzz-776456:04 CBC WITH MANUAL DIFF Comments: PATIENT NOT FASTINGPERFORMED BY: WH[facility] [id number] [facility] [id number] Information: NURSE DRAW (97323) Immature Grans (Abs) 0.0 {x10E3/uL} (Normal) Range: 0.0-0.1 Immature Granulocytes 0 % (Normal) Baso (Absolute) 0.0 {x10E3/uL} (Normal) Range: 0.0-0.2 Eos (Absolute) 0.0 {x10E3/uL} (Normal) Range: 0.0-0.4 Monocytes(Absolute) 0.2 {x10E3/uL} (Normal) Range: 0.1-0.9 Lymphs (Absolute) 1.0 {x10E3/uL} (Normal) Range: 0.7-3.1 Neutrophils (Absolute) 1.9 {x10E3/uL} (Normal) Range: 1.4-7.0 Basos 1 % (Normal) Eos 1 % (Normal) Monocytes 8 % (Normal) Lymphs 32 % (Normal) Neutrophils 58 % (Normal) Platelets 191 {x10E3/uL} (Normal) Range: 150-379 RDW 14.1 % (Normal) Range: 12.3-15.4 MCHC 32.6 g/dL (Normal) Range: 31.5-35.7 MCH 27.9 pg (Normal) Range: 26.6-33.0 MCV 86 fL (Normal) Range: 79-97 Hematocrit 39.0 % (Normal) Range: 34.0-46.6 Hemoglobin 12.7 g/dL (Normal) Range: 11.1-15.9 RBC 4.56 {x10E6/uL} (Normal) Range: 3.77-5.28 WBC 3.2 {x10E3/uL} (Abnormal) Range: 3.4-10.8 81-Cmn-267939:04 URINALYSIS (68105) Comments: PATIENT NOT FASTINGPERFORMED BY: [facility] CenterMjcpsi6154 [facility] [id number] Microscopic Examination MICNIP (Normal) Comments: Microscopic not indicated and not performed. Nitrite, Urine Negative (Normal) Urobilinogen,Semi-Qn 0.2 mg/dL (Normal) Range: 0.2-1.0 Bilirubin Negative (Normal) Occult Blood Negative (Normal) Ketones Negative (Normal) Glucose Negative (Normal) Protein Negative (Normal) WBC Esterase Negative (Normal) Appearance Clear (Normal) Urine-Color Yellow (Normal) pH 6.5 (Normal) Range: 5.0-7.5 Specific [place] 1.008 (Normal) Range: 1.005-1.030 05-Awr-27421:47 IGP, Aptima HPV, Comments: Source.............Cervix;EndocervixNo. of containers..01 CYTYC Thin Prep VialPATIENT NOT FASTINGPERFORMED BY: =G [facility] Eujrlwhxvm719 [facility] W [id number] BY: WB [facility] rfx 16/18,45 rp Adzmnmfcix378 [facility] [id number] HPV Aptima Negative (Normal) Comments: This test detects fourteen high-risk HPV types (16/18/31/33/35/39/45/51/52/56/58/59/66/68) without differentiation. Note: PAPSMR (Normal) Comments: The Pap smear is a screening test designed to aid in the detection ofpremalignant and malignant conditions of the uterine cervix. It is not adiagnostic procedure and should not be used as the sole mean s of detectingcervical cancer. Both false-positive and false-negative reports do occur. .This liquid based ThinPrep(R) pap test w as screened with theuse of an image guided system. See Note . (Normal) DIAGNOSIS: SPRCS (Normal) Comments: NEGATIVE FOR INTRAEPITHELIAL LESION AND MALIGNANCY.Satisfactory for evaluation. No endocervical component is identified.Z01.419Amanda S Moe, Music Publicist (ASCP) 32-Lfe-47142:47 Thin prep Pap Comments: Source.............Cervix;EndocervixNo. of containers..01 CYTYC Thin Prep VialPATIENT NOT FASTINGPERFORMED BY: =G [facility] [address] [id number] BY: [facility] (80471) (no STD rp [address] [id number] Information: [id number] testing) Age Gdln ACOG Testing 30-65 (Normal) :32 CALCIFIDIOL (69844) VIT D 25 Comments: PATIENT WAS FASTINGPERFORMED BY: CB [facility] Hwdbbm1178 [facility] [id number] Vitamin D, 25-Hydroxy 38.1 ng/mL (Normal) Range: 30.0-100.0 Comments: Vitamin D deficiency has been defined by the [place] ofMedicine and an Endocrine Society practice guideline as alevel of serum 25-OH vitamin D less than 20 ng/mL (1,2).The Endocrine Society went on to further define vitamin Dinsufficiency as a level between 21 and 29 ng/mL (2).1. IOM ([place] of [employer]). 2010. Dietary reference intakes for calcium and D. [place]: The National Academies Press.2. De MF, Agustin NC, Andree CHAO, et al. Evaluation, treatment, and prevention of vitamin D deficiency: an Endocrine Society clinical practice guideline. JCEM. 2010; 96(7):1911-30. 35-Hfl-49206:32 HGB A1C (17806) Comments: PATIENT WAS FASTINGPERFORMED BY: [facility] Ejuxjw7637 [facility] [id number]; fu 5-30 db Hemoglobin A1c 5.9 % (Abnormal) Range: 4.8-5.6 Comments: . Pre-diabetes: 5.7 - 6.4 Diabetes: >6.4 Glycemic control for adults with diabetes: <7.0 69-Bqk-17416:05 URINE CHARLY CULTURE-IDENTIFICATN Comments: PATIENT NOT FASTINGPERFORMED BY: [place] [id number] [facility] [facility] [id number] Information: [id number] ([id number]) Result 1 MUG (Normal) Comments: Mixed urogenital flora1,000 Colonies/mL Urine Culture,Comprehensive Final report (Normal) 19-Wea-61654:29 Urinalysis, Office (29027) UA - LEUKOCYTE ESTERASE Negative (Normal) UA - NITRITE Negative (Normal) URINE UROBILINGN CHUY TIMED Normal mg/dL (Normal) UA - PROTEIN Negative mg/dL (Normal) UA - PH 6 (Abnormal) UA - BLOOD Non Hemolyzed Trace (Normal) UA - SPECIFIC GRAVITY 1.015 (Normal) UA - KETONES Negative mg/dL (Normal) UA - BILIRUBIN Negative (Normal) UA - GLUCOSE Negative (Normal) 29-Tkh-709538:59 URINE CHARLY CULTURE-CHUY COL Comments: PATIENT NOT FASTINGPERFORMED BY: [place] [id number] [facility] [id number] Information: SRC:[facility] [id number] COUNT ([id number]) Result 1 ECV (Abnormal) Comments: Escherichia coli, identified by an automated biochemical system.25,000-50,000 colony forming units per mL S = Susceptible; I = Intermediate; R = Resistant P = Positive; N = Negative MICS are expressed in micrograms per mL Antibiotic RSLT#1 RSLT#2 RSLT#3 RSLT#4Amoxicillin/Clavulanic Acid SAmpicillin RCefepime SCeftriaxone SCefuroxime SCephalothin SCiprofloxacin SErtapenem SGentamicin SImipenem SLevofloxacin SNitrofurantoin SPiperacillin RTetracycline STobramycin STrimethoprim/Sulfa S Urine Final report Culture,Comprehensi (Abnormal) ve 94-Jlh-138988:23 Urinalysis, Office (53163) UA - LEUKOCYTE ESTERASE Trace (Normal) UA - NITRITE Negative (Normal) URINE UROBILINGN CHUY Normal mg/dL TIMED (Normal) UA - PROTEIN Negative mg/dL (Normal) UA - PH 7 (Normal) UA - BLOOD Negative (Normal) UA - SPECIFIC GRAVITY 1.010 (Normal) UA - KETONES Negative mg/dL (Normal) UA - BILIRUBIN Negative (Normal) UA - GLUCOSE Negative (Normal) ENDOMETRIAL See Note (Normal) Comments: [facility] [address] [place], [place], [address] :02 BX/CURETTINGS Comments: Patient: SAMI CAMPUZANO : 1955 (59/F) Acct Num: [id number] Phys: Marcelo RAYMOND,Nayeli Unit Num: [id number] Loc: [facility] [place] Specimen: [id number] Received: 01/09/15 - 1020 Spec Type: ENDOM BX /C TISSUES TISSUES: COMMENT Case has been reviewed in consultation with Dr. Anderson who concurs with the abovediagnosis. IDC:AM GROSS DESCRIPTION Received is one container labele d with the patient name and designated endometrial curettings. The specimen consists of multiple irregular fragmentsof dark roman soft tissue measuring in aggregate 3 x 2.5 x 0.2 cm. The specimen is t otally submitted in one cassette. / AM:angella 01/09/15 TC:5 CPT: 48583 HEADER OPERATION: Hysteroscopy, diagnostic D AND C PRE-OP DIAGNOSIS: Leiomyoma of uterus, postmenopausal bleeding TISSUE SUBMITTED: Endometrial curettings MICROSCOPIC DESCRIPTION Slides are reviewed. MICROSCOPIC DIAGNOSIS Endometrial curettings: Weakly proliferative endometrium with cystic atrophic ibarra es. SJ:angella 01/10/15 Signed Billy Padron 01/10/15 <signature on file> 74-Jau-136365:30 ,Urine Comments: Test performed at:[facility] [address] [place] [address] HCGUQUAL Negative {Negative} (Normal) Comments: Very dilute urine specimens, as indicated by a low specificgravity, may not contain security systems sales representative levels of hCG.If is still suspected, a first morning urinespecimen should be collected 48 hours later and tested. 18-Oct-20147:08 CBC With Differential/Platelet Comments: PATIENT WAS FASTINGPERFORMED BY: [facility]CoNewton [facility] CenterDcjdbr2586 [facility] [id number] Information: [id number] Immature Grans (Abs) 0.0 {x10E3/uL} (Normal) Range: 0.0-0.1 Immature Granulocytes 0 % (Normal) Baso (Absolute) 0.0 {x10E3/uL} (Normal) Range: 0.0-0.2 Eos (Absolute) 0.1 {x10E3/uL} (Normal) Range: 0.0-0.4 Monocytes(Absolute) 0.6 {x10E3/uL} (Normal) Range: 0.1-0.9 Lymphs (Absolute) 1.4 {x10E3/uL} (Normal) Range: 0.7-3.1 Neutrophils (Absolute) 2.3 {x10E3/uL} (Normal) Range: 1.4-7.0 Basos 0 % (Normal) Eos 3 % (Normal) Monocytes 14 % (Normal) Lymphs 32 % (Normal) Neutrophils 51 % (Normal) Platelets 196 {x10E3/uL} (Normal) Range: 150-379 RDW 14.1 % (Normal) Range: 12.3-15.4 MCHC 33.4 g/dL (Normal) Range: 31.5-35.7 MCH 28.6 pg (Normal) Range: 26.6-33.0 MCV 86 fL (Normal) Range: 79-97 Hematocrit 38.3 % (Normal) Range: 34.0-46.6 Hemoglobin 12.8 g/dL (Normal) Range: 11.1-15.9 RBC 4.47 {x10E6/uL} (Normal) Range: 3.77-5.28 WBC 4.5 {x10E3/uL} (Normal) Range: 3.4-10.8 9-Sushil-86199:08 Comp. Metabolic Panel (14) Comments: PATIENT WAS FASTINGPERFORMED BY: [employer] Dqzgup5039 [facility] [id number] ALT (SGPT) 18 [iU]/L (Normal) Range: 0-32 AST (SGOT) 21 [iU]/L (Normal) Range: 0-40 Alkaline Phosphatase, 88 [iU]/L (Normal) Range: 39-117 S Bilirubin, Total 0.3 mg/dL (Normal) Range: 0.0-1.2 A/G Ratio 1.9 (Normal) Range: 1.1-2.5 Globulin, Total 2.2 g/dL (Normal) Range: 1.5-4.5 Albumin, Serum 4.1 g/dL (Normal) Range: 3.5-5.5 Protein, Total, Serum 6.3 g/dL (Normal) Range: 6.0-8.5 Calcium, Serum 9.0 mg/dL (Normal) Range: 8.7-10.2 Carbon Dioxide, Total 24 mmol/L (Normal) Range: 18-29 Chloride, Serum 103 mmol/L (Normal) Range: 97-108 Potassium, Serum 4.2 mmol/L (Normal) Range: 3.5-5.2 Sodium, Serum 143 mmol/L (Normal) Range: 134-144 BUN/Creatinine Ratio 25 (Abnormal) Range: 9-23 eGFR If Africn Am 115 mL/min/1.73 (Normal) eGFR If NonAfricn Am 100 mL/min/1.73 (Normal) Creatinine, Serum 0.63 mg/dL (Normal) Range: 0.57-1.00 BUN 16 mg/dL (Normal) Range: 6-24 Glucose, Serum 90 mg/dL (Normal) Range: 65-99 :0 Estradiol 204.3 pg/mL Comments: PATIENT WAS FASTINGPERFORMED BY: [employer] Mqumrc4057 [facility] [id number] (Normal) Comments: Adult Female: Follicular phase 12.5 - 166.0 Ovulation phase 85.8 - 498.0 Luteal phase 43.8 - 211.0 Postmenopausal <6.0 - 54.7 1st trimester 215.0 - & gt;4300.0 Girls (1-10 years) 6.0 - 27.0Roche ECLIA methodology :08 FSH and LH Comments: PATIENT WAS FASTINGPERFORMED BY: [facility] HospitalPxaqaa4085 [facility] [id number] FSH 43.8 m[iU]/mL (Normal) Comments: Follicular phase 3.5 - 12.5 Ovulation phase 4.7 - 21.5 Luteal phase 1.7 - 7.7 Postmenopausal 25.8 - 134.8 LH 47.0 m[iU]/mL (Normal) Comments: Follicular phase 2.4 - 12.6 Ovulation phase 14.0 - 95.6 Luteal phase 1.0 - 11.4 Postmenopausal 7.7 - 58.5 :08 Lipid Panel With LDL/HDL Comments: PATIENT WAS FASTINGPERFORMED BY: [facility] HospitalJmqiud2031 [facility] [id number] Ratio LDL/HDL Ratio 1.9 {ratio_units} (Normal) Range: 0.0-3.2 Comments: LDL/HDL Ratio Men Women 1/2 Avg.Risk 1.0 1.5 Av g.Risk 3.6 3.2 2X Avg.Risk 6.2 5.0 3X Avg.Risk 8.0 6.1 LDL Cholesterol Calc 107 mg/dL (Abnormal) Range: 0-99 VLDL Cholesterol Lokesh 10 mg/dL (Normal) Range: 5-40 HDL Cholesterol 56 mg/dL (Normal) Comments: According to ATP-III Guidelines, HDL-C >59 mg/dL is considered anegative risk factor for CHD. Triglycerides 52 mg/dL (Normal) Range: 0-149 Cholesterol, Total 173 mg/dL (Normal) Range: 100-199 :08 Microscopic Examination Comments: PATIENT WAS FASTINGPERFORMED BY: menschmaschine publishingBeaumont Hospital6370 [facility] [id number] Bacteria Few (Normal) Mucus Threads Present (Normal) Epithelial Cells (non >10 {/hpf} Range: 0 - 10 renal) (Abnormal) RBC 0-2 {/hpf} (Normal) Range: 0 - 2 WBC 0-5 {/hpf} (Normal) Range: 0 - 5 : Prolactin 26.7 ng/mL Comments: PATIENT WAS FASTINGPERFORMED BY: [facility] [id number] (Abnormal) Range: 4.8-23.3 :08 Thyroxine (T4) Free, Direct, S Comments: PATIENT WAS FASTINGPERFORMED BY: [facility] [id number] T4,Free(Direct) 1.02 ng/dL Range: 0.82-1.77 (Normal) Triiodothyronine,Free,Seru 3.5 pg/mL (Normal) Comments: PATIENT WAS FASTINGPERFORMED BY: [facility] [id number] :08 m Range: 2.0-4.4 TSH 3.990 {uIU/mL} Comments: PATIENT WAS FASTINGPERFORMED BY: [facility] [id number] :08 (Normal) Range: 0.450-4.500 :08 Urinalysis, Complete Comments: PATIENT WAS FASTINGPERFORMED BY: [facility] [id number] Microscopic Examination See below: (Normal) Comments: Microscopic was indicated and was performed. Microscopic Examination MICRON (Normal) Comments: Microscopic follows if indicated. Nitrite, Urine Negative (Normal) Urobilinogen,Semi-Qn 0.2 mg/dL (Normal) Range: 0.0-1.9 Bilirubin Negative (Normal) Occult Blood Negative (Normal) Ketones Negative (Normal) Glucose Negative (Normal) Protein Negative (Normal) WBC Esterase Negative (Normal) Appearance Clear (Normal) Urine-Color Yellow (Normal) pH 6.0 (Normal) Range: 5.0-7.5 Specific [place] 1.025 (Normal) Range: 1.005-1.030 :52 IGP, Aptima HPV, Comments: Source.............Cervical;EndocervicalNo. of containers..01 CYTYC Thin Prep VialPATIENT NOT FASTINGPERFORMED BY: =G [facility] [id number] BY: WB L rfx 16/18,[address] [id number] HPV Aptima Negative (Normal) Comments: This test detects fourteen high-risk HPV types (16/18/31/33/35/39/45/51/52/56/58/59/66/68) without differentiation. Note: PAPSMR (Normal) Comments: The Pap smear is a screening test designed to aid in the detection ofpremalignant and malignant conditions of the uterine cervix. It is not adiagnostic procedure and should not be used as the sole mean s of detectingcervical cancer. Both false-positive and false-negative reports do occur. .This liquid based ThinPrep(R) pap test w as screened with theuse of an image guided system. See Note . (Normal) DIAGNOSIS: SPRCS (Normal) Comments: NEGATIVE FOR INTRAEPITHELIAL LESION AND MALIGNANCY.FUNGAL ORGANISMS MORPHOLOGICALLY CONSISTENT WITH MAURY SPECIES AREPRESENT.Satisfactory for evaluation. Endocervical and/or squamous meta plasticcells (endocervical component) are present.V72.31 ; Routine gynecological examinationMarisol Nava Music Publicist (ASCP) 1-Snc-771180:52 IGP,Aptima Comments: Source.............Cervical;EndocervicalNo. of containers..01 CYTYC Thin Prep VialPATIENT NOT FASTINGPERFORMED BY: =G [facility] [id number] BY: WB L HPV,CtNg Age Gdln [address] [id number] Information: [id number] Age Gdln ACOG Testing 30-65 (Normal) 19-Dec-20107:18 Urinalysis, Office (22904) UA - LEUKOCYTE ESTERASE Small (Normal) UA - NITRITE Negative (Normal) URINE UROBILINGN CHUY TIMED Normal mg/dL (Normal) UA - PH 7.0 (Normal) UA - BLOOD Non Hemolyzed Trace (Normal) UA - SPECIFIC GRAVITY 1.010 (Normal) UA - KETONES Negative mg/dL (Normal) UA - BILIRUBIN Negative (Normal) UA - GLUCOSE Negative (Normal) 40-Qvz-027647:35 PELVIC (NON ) Radiology Report See Note (Normal) Comments: PROCEDURE: PELVIC ULTRASOUND REASON FOR EXAM: Female, 55 years old. Abdominal pain and urinaryretention. TECHNIQUE: Transabdominal COMPARISON: None. FINDINGS:The uterus is enlarged measuring 15 x 1 0.3 x 9.7 cm. The endometrium isnormal in thickness measuring 9 mm. There is a large uterine massmeasuring about 9.5 x 7.5 x 10 cm consistent with large uterine fibroid.There is another smaller mass m easuring about 3.7 x 3.6 x 2.3 cm againconsistent with uterine fibroid. The right ovary is not visualized. The left ovary is not visualized. There is no free fluid in the cul-de-sac. IMPRESSION:Enlarged uterus with fibroids as described above.Both ovaries are not visualized. Dictated on 10/29/10 1542 by MIRIAM HENRY MDTranscribed on 11/01/10 1046 by ITS IMPORTSign by MIRIAM HENRY MD on 11/01/10 1047 Sign by: MIRIAM HENRY MD :42 CULTURE, URINE URINE CULTURE See Note {CFU/mL} (Normal) Comments: COLONY COUNT 11,000-25,000 ORGANISM 1: STREPTOCOCCUS AGALACTIAE (B) STREPTOCOCCUS AGALACTIAE (B): REACTION AMPICILLIN $$ <=0.25 S B ENZYLPENICILLIN - <=0.12 S CEFAZOLIN *See Comment $ S* S CLINDAMYCIN $$ <=0.25 R LEVOFLOXACIN $ 2 S LINEZOLID $$$ 2 S QUINUPRISTIN/DALFOPRI (NF) $$$ <=0.25 S VANCOMYCIN $ <=0.5 S :05 Urinalysis, Office (96071) UA - BILIRUBIN Negative (Normal) UA - BLOOD Hemolyzed Small (Normal) UA - GLUCOSE Negative (Normal) UA - KETONES Negative mg/dL (Normal) UA - LEUKOCYTE ESTERASE Negative (Normal) UA - NITRITE Negative (Normal) UA - PH 6.0 (Normal) UA - PROTEIN Negative mg/dL (Normal) UA - SPECIFIC GRAVITY 1.015 (Normal) URINE UROBILINGN CHUY TIMED 2 mg/dL (Normal) 04-Uen-53786:46 Thin prep Pap Comments: Source.............Cervical;EndocervicalLMP / Prev Treat...KCS=[id number]. of containers..01 CYTYC Thin Prep VialPATIENT NOT FASTINGPERFORMED BY: [facility] [place] Ayci[address] [facility] [address]Vchqsfywg [place] [id number] ([id number]) . . (Normal) DIAGNOSIS: SPRCS (Normal) Comments: NEGATIVE FOR INTRAEPITHELIAL LESION AND MALIGNANCY.FUNGAL ORGANISMS MORPHOLOGICALLY CONSISTENT WITH MAURY SPECIES AREPRESENT.THIS SPECIMEN WAS RESCREENED PART OF OUR LIVING SKILLS ADVISOR P [facility] factory for evaluation. Endocervical and/or squamous metaplasticcells (endocervical component) are present.V72.31 ; Routine gynecological examinationPetra Griggs, Music Publicist (ASCP)Samia Parmar, Supervisory Music Publicist (ASCP) Note: PAPSMR (Normal) Comments: The Pap smear is a screening test designed to aid in the detection ofpremalignant and malignant conditions of the uterine cervix. It is not adiagnostic procedure and should not be used as the sole mean s of detectingcervical cancer. Both false-positive and false-negative reports do occur. .The HPV DNA reflex criteria were not met with this specimen resulttherefore, no HPV testing was performed. . 97-Mgv-379268:46 BILAT DIAG DIGITAL & CAD Radiology Report See Note (Normal) Comments: Exam Number: [id number] BILATERAL DIAGNOSTIC DIGITAL MAMMOGRAM CLINICAL INFORMATIONAbnormal mammogram. Digital diagnostic images of the right and left breasts were obtainedbased upon findings on the stud y of July 13, 2007. First of all with regard to the left breast, spot compression of anarea in the left breast superiorly in the MLO view demonstrates nopersistent mammographic finding. This is felt to have been due tosuperimposed fibroglandular elements. There is no evidence of mass,spiculation or distortion with spot compression. Magnification views of questionable calcifications in the right breastdemonstrate 2 punctate benign calcifications. No suspiciouscalcifications are evident. IMPRESSION1. The small density superior in the left breast does not persistwith spot compression and is, therefore, considered benign.2. Calcifications in the right breast appear punctate and benign. Mammographic followup in 1 year would be recommended. BIRADS Category 2 with 1-year followup. A letter reg arding the results has been sent to the patient. This interpretation was rendered by a radiologist certified under theMammography Quality Standards Act of 1992 (MQSA). The mammograms werealso examined with computer-aided detection software ([employer]). Reported By: DAYNA RUSSELL M.D. :02 [facility] D[facility]ITAL [facility] CAD Radiology Report See Note (Normal) Comments: Exam Number: [id number] BILATERAL SCREENING DIGITAL MAMMOGRAM CLINICAL INFORMATIONScreening. Bilateral digital mammography was performed as a screening exam. Standard CC and MLO views were ob tained. Ther e was a delay in issuing the report [facility] [place] [facility] That study was onAugust 2003. FINDINGSThe overall appearance of the breasts is unchanged with dense,heterogeneous parenchyma. No dominant masses are evident. In theleft breast superiorly in the MLO view there is a small asymmetricdensity likely merely fibroglandular tissue. Spot compress ion of thisis suggested. In the right breast there is a questionable group ofcalcifications for which magnification views are recommended. IMPRESSION1) The breasts are dense and heterogeneous whic h makes mammographydifficult. A small focal density in the left breast is seen and spot compression is recommended along with magnification views of calcifications in the right breast. 2) BIRADS 0-ad ditional views. A letter regarding the results has been sent to the patient. This interpretation was rendered by a radiologist certified underthe Mammography Quality Standards Act of 1992 (MQSA). The mammogramswere also examined with computer-aided detection software(Peter Blueberry.). Reported By: DAYNA RUSSELL M.D. :1 GLU 81 mg/dL (Normal) Range: 70-110 9 :19 LIPID CHOL 155 mg/dL (Normal) Comments: <200 mg/dL Desirable 200-240 mg/dL Borderline >240 mg/dL High Risk HDL 43 mg/dL (Normal) Comments: Reference Range HDL <40 mg/dL Low HDL Cholesterol HDL >or= 60 mg/dL High HDL Cholesterol LDL 104 mg/dL (Normal) Range: 0-130 TRIG 42 mg/dL (Normal) Comments: Serum Triglycerides Reference Interval Normal <150 mg/dL Borderline high 150 - 199 mg/dL High 200 - 499 mg/dL Very High > or = 500 mg/dL VLDL 8 mg/dL (Normal) Range: 5-40 Plan of Care Name Dates Details Instructions Diverticulitis : Eprescribed prescriptions (G8553) Indication: Diverticulitis Screening mammogram, encounter for : Mammogram *: breast Indication: Screening mammogram, encounter for Acute cystitis without hematuria : Eprescribed prescriptions (G8553) Indication: Acute cystitis without hematuria Well woman exam : Pap/Pelvic/Bimanual/Rectal/Breast Exam was done. Indication: Well woman exam Well woman exam : Eprescribed prescriptions (G8553) Indication: Well woman exam Cerumen impaction : Follow up if no improvement or if symptoms worsen Indication: Cerumen impaction Urinary retention : Reviewed Diagnostic Tests Indication: Urinary retention Uterine fibroid : Reviewed Lab Indication: Uterine fibroid Uterine fibroid : Reviewed Diagnostic Tests Indication: Uterine fibroid Urinary retention : Follow up if no improvement or if symptoms worsen Indication: Urinary retention Urinary retention : Catheter 8F-- straight cath preformed and 800 cc urine drained -- pt feels much better and more comfortable Indication: Urinary retention Well woman exam : Self Breast Exam Education Indication: Well woman exam Well woman exam : Pap/Pelvic/Bimanual/Rectal/Breast Exam was done. Indication: Well woman exam Well woman exam : Well Female Maintenance (KF) Indication: Well woman exam WWV : Colon Cancer Screening Indication: WWV Planned Observations CBC, Platelets & Auto Diff (96993)Indication: Abdominal pain, acute, left lower quadrant (Renamed from Acute abdominal pain in left lower quadrant) On: 09-Gbr-98744:26 Request HGB A1C (42907)Indication: Abnormal fasting glucose On: 65-Zld-521505:54 Request T3, FREE (TRIDOTHYRONINE) (49679)Indication: Thyroid nodule On: 5-Nnf-631413:26 Request T4, FREE (THYROXINE) (54977)Indication: Thyroid nodule On: :26 Request TSH (32887)Indication: Thyroid nodule On: 5-Gci-916626:25 Request FSH AND LH (79458)Indication: Abnormal vaginal bleeding On: : Request ESTRADIOL (66733)Indication: Abnormal vaginal bleeding On: : Request PROLACTIN (76590)Indication: Abnormal vaginal bleeding On: : Request T3, FREE (TRIDOTHYRONINE) (29019)Indication: Goiter On: : Request T4, FREE (THYROXINE) (18163)Indication: Goiter On: : Request TSH (27033)Indication: Goiter On: : Request Thin Prep Pap (34385)Indication: Well woman exam On: : Request URINALYSIS, W/ MICRO (38323)Indication: Well woman exam On: : Request METABOLIC PANEL, COMPREHENSIVE (84452)Indication: Well woman exam On: : Request CBC with auto diff (59180)Indication: Well woman exam On: :15 Request LIPID PANEL (66739)Indication: Well woman exam On: :15 Request URINE CHARLY CULTURE-CHUY COL COUNT (76924)Indication: Acute cystitis without hematuria On: 19-Dec-20107:37 Request URINE CHARLY CULTURE-CHUY COL COUNT (64263)Indication: Urinary retention On: :05 Request Glucose (06353)Indication: WWV On: 25-Qmq-484075:46 Request Lipid Panel (69820)Indication: WWV On: 00-Hpw-061914:46 Request Planned Encounters Medical; [facility] Pre Wellness Exam (DB Nurse) - db pt pt wanted a wed On: 25-May-2018 8:45 [facility] NURSE, DF Medical; [facility] Wellness Exam (Doctor) - On: 08-Jun-2018 8:00 [facility] Horace RAYMOND, Nehal Vu MD, Nehal Castellanos Planned Procedures DEXA SCAN AXIAL SKELETON (56267)By: On: 25-May-2017 Intent Horace RAYMOND, Nehal Collins MD SCREENING DIGITAL TOMOSYNTHESIS OF On: 25-May-2017 Intent BREAST (72832)By: Nehal Vu MD, MD, Dana M TDAP VACCINE >7 IM (69951)By: On: 25-May-2017 Intent Nehal Vu MD, MD, Dana Comments: lot:[id number]:03-26-19rte:IM dose:0.5mlgiven by:GURU Briones Ultrasound - ThyroidBy: Horace RAYMOND, On: 05-May-2016 Intent Nehal Collins MD Comments: recheck 3-17 MAMMOGRAM BREAST BILATERAL SCREENING On: 05-May-2016 Intent DIGITAL (96810)By: Nehal Vu MD, MD, Dana M Ultrasound - ThyroidBy: Horace RAYMOND, On: 18-Jun-2015 Intent Nehal Collins MD Comments: in six months (approximately) Ultrasound - ThyroidBy: Horace RAYMOND, On: 07-Jun-2015 Intent Nehal Collins MD Ultrasound - ThyroidBy: Horace RAYMOND, On: 25-Oct-2014 Intent Nehal Collins MD Comments: sometime in Mar 2015 or Apr 2015recheck from us done in October 2014 - please compare Ultrasound - PelvisBy: Horace RAYMOND, On: 16-Oct-2014 Intent Nehal Collins MD Ultrasound - ThyroidBy: Horace RAYMOND, On: 16-Oct-2014 Intent Nehal Collins MD MAMMOGRAM, SCREENING, BOTH BREAST On: 21-Jun-2014 Intent (23341)By: Nehal Vu MD, MD, Dana M Aerosol Treatment (22046)By: Alyse On: 19-Apr-2012 Intent Belia HERNANDEZ E Wax CurettesBy: Alyse HERNANDEZ Jacquelin On: 19-Apr-2012 Intent Ear Irrigation (70097)By: Alyse On: 19-Apr-2012 Intent DAVID Jacquelin Solu -Medrol Injection, 125 mg On: 10-Sep-2011 Intent (J2930)By: Nehal Vu MD Comments: Lot #[id number]-R hip, IMDose 125mggiven by:Nehal Bowie MD Rocephin Injection, 2 Gram On: 24-Oct-2010 Intent (J0696)By: Benita Carrion DO Comments: Lot #[id number]-R and L hipsDose 2 grams/4ml split into 2 dosesgiven by:KARRIE Ultrasound - PelvisBy: Murali VILLATORO, On: 24-Oct-2010 Intent Benita THER/PROPH/DIAG INJ, SC/IM On: 24-Oct-2010 Intent (99455)By: Benita Carrion DO MAMMOGRAM, SCREENING, BOTH BREASTS On: 26-Apr-2007 Intent (89639)By: Nehal Vu MD, MD, Dana M TD Injection , IM (03466)By: On: 26-Apr-2007 Intent Nehal Vu MD, MD, Dana Comments: given in left deltoid, lot#[id number], exp.6.12.08--WF M Planned Medications INJECTION, CEFTRIAXONE SODIUM, PER 250 MG Ordered: 24-Oct-2010 Pending Benita Carrion DO INJECTION, METHYLPREDNISOLONE SODIUM SUCCINATE, UP TO 125 MG Ordered: 10-Sep-2011 Pending Nehal Vu MD, MD, Dana M Instructions Name Dates Details Diverticulitis : How to access health information online Indication: Diverticulitis Diverticulitis : How to access health information online - Detail Indication: Diverticulitis Diverticulitis : Patient Instructions Indication: Diverticulitis Well woman exam (Renamed from Encounter for well woman exam) : How to access health information online Indication: Well woman exam (Renamed from Encounter for well woman exam) Well woman exam (Renamed from Encounter for well woman exam) : How to access health information online - Detail Indication: Well woman exam (Renamed from Encounter for well woman exam) Well woman exam (Renamed from Encounter for well woman exam) : Patient Instructions Indication: Well woman exam (Renamed from Encounter for well woman exam) BMI 24.0-24.9, adult : How to access health information online Indication: BMI 24.0-24.9, adult BMI 24.0-24.9, adult : How to access health information online - Detail Indication: BMI 24.0-24.9, adult BMI 24.0-24.9, adult : Patient Instructions Indication: BMI 24.0-24.9, adult BMI 26.0-26.9,adult : How to access health information online Indication: BMI 26.0-26.9,adult BMI 26.0-26.9,adult : How to access health information online - Detail Indication: BMI 26.0-26.9,adult BMI 26.0-26.9,adult : Patient Instructions Indication: BMI 26.0-26.9,adult Well woman exam (Renamed from Encounter for well woman exam) : How to access health information online Indication: Well woman exam (Renamed from Encounter for well woman exam) Well woman exam (Renamed from Encounter for well woman exam) : How to access health information online - Detail Indication: Well woman exam (Renamed from Encounter for well woman exam) Well woman exam (Renamed from Encounter for well woman exam) : Patient Instructions Indication: Well woman exam (Renamed from Encounter for well woman exam) Acute cystitis without hematuria : How to access health information online Indication: Acute cystitis without hematuria Acute cystitis without hematuria : How to access health information online - Detail Indication: Acute cystitis without hematuria Acute cystitis without hematuria : Patient Instructions Indication: Acute cystitis without hematuria Thyroid nodule : How to access health information online Indication: Thyroid nodule Thyroid nodule : How to access health information online - Detail Indication: Thyroid nodule Thyroid nodule : Patient Instructions Indication: Thyroid nodule Well woman exam : How to access health information online Indication: Well woman exam Well woman exam : How to access health information online - Detail Indication: Well woman exam Well woman exam : Patient Instructions Indication: Well woman exam Encounters Office Visit On: 08-Feb-2018 15:08 Encounter Reason: Follow up for chronic medical issues - The patient feels well with no complaints, has good energy level and is sleeping well. Patient has been compliant with instructions. Patient sleeps 6 hours per nig End: 08-Feb-2018 15:50 ht. Impact of disease: emotional impact-mild. Nutrition: balanced diet and supplemental vitamins. The medical issues the patient is following up for include blood sugar issues and other (vitamin d def., goiter, painful intercourse). Encounter Diagnosis: Current nonsmoker (Renamed from Current non-smoker), BMI 23.0- 23.9, adult, Diverticulitis [facility] Office Visit On: 03-Feb-2018 7:08 Encounter Diagnosis: Abdominal pain, acute, left lower quadrant (Renamed from Acute abdominal pain in left lower quadrant), Encounter for screening colonoscopy End: 03-Feb-2018 7:31 [facility] Phone Encounter On: 02-Feb-2018 8:45 Encounter Diagnosis: Abnormal laboratory test End: 02-Feb-2018 8:46 [facility] Office Visit On: 25-May-2017 11:58 Encounter Diagnosis: Goiter, Acquired vaginal enterocele, Current nonsmoker (Renamed from Current non-smoker), Uterine fibroid, Vitamin D deficiency, Dyspareunia in female, Abnormal fasting glucose, End: 28-May-2017 7:41 Well woman exam (Renamed from Encounter for well woman exam), Encounter for screening colonoscopy, BMI 23.0-23.9, adult, Need for Tdap vaccination (Renamed from Need for htygdlgxij-dsbdewl-sfehznhgj (Tdap) vaccine, adult/adolescent), Screening mammogram, encounter for, Abnormal laboratory test, Postmenopausal (Renamed from Postmenopausal status), Encounter for hepatitis C virus screening test for high risk patient [facility] Lab Order On: 26-Apr-2017 17:06 Encounter Diagnosis: Abnormal fasting glucose End: 26-Apr-2017 17:10 [facility] Office Visit On: 12-Jan-2017 10:00 Encounter Reason: Follow up for chronic medical issues - The patient feels well with no complaints, has good energy level and is sleeping well. Patient has been compliant with instructions. Patient sleeps 6 hours per nig End: 12-Jan-2017 10:51 ht. Impact of disease: emotional impact-mild. Nutrition: balanced diet and supplemental vitamins. The medical issues the patient is following up for include blood sugar issues and other (vitamin d def., goiter, painful intercourse). Encounter Diagnosis: BMI 24.0-24.9, adult, Current nonsmoker (Renamed from Current non-smoker), Prediabetes, Uterine fibroid, Vitamin D deficiency, Acquired vaginal enterocele, Well woman exam (Renamed from Encounter for well woman exam), Thyroid nodule, Dyspareunia in female, Goiter, Well woman exam, BMI 29.0-29.9,adult, Screening mammogram, encounter for, BMI 26.0-26.9,adult, BMI 25.0-25.9,adult [facility] Office Visit On: 03-Nov-2016 9:22 Encounter Reason: Nurse procedure visit - Reason for visit: other (weight check).Encounter Diagnosis: Goiter, Prediabetes, BMI 25.0-25.9,adult End: 03-Nov-2016 9:31 [facility] Office Visit On: 08-Sep-2016 15:18 Encounter Reason: Follow up, Diagnostic Procedure Results - Diagnostic tests include other (labs). Date: (). Follow up visit with no current symptoms.Encounter Diagnosis: BMI 26.0-26.9,adult, Current nonsmoker (Renamed from Current non-smoker) End: 08-Sep-2016 16:00 , Prediabetes, Goiter, Thyroid nodule [facility] Office Visit On: 05-May-2016 13:28 Encounter Diagnosis: Well woman exam (Renamed from Encounter for well woman exam), Current nonsmoker (Renamed from Current non-smoker), Screening mammogram, encounter for, BMI 29.0-29.9,adult, Goiter, Dyspareunia, Thyroid nodule, End: 11-May-2016 8:09 Acquired vaginal enterocele, Urinary retention, Weight gain, Uterine fibroid, Well woman exam, Prediabetes, Vitamin D deficiency [facility] Office Visit On: 08-Aug-2015 7:12 Encounter Reason: Nurse procedure visit - The symptoms have been associated with other (UA recheck after being off antibiotics for 7 days).Encounter Diagnosis: Urinary retention End: 08-Aug-2015 17:08 [facility] Office Visit On: 23-Jul-2015 11:19 Encounter Reason: UTI - The urinary symptoms are described as painful urination, frequency, urgency, groin pain and burning. The symptoms have been occurring for hours and have been increasing. The urine is described as End: 23-Jul-2015 22:38 yellow. There has been no associated fever, abdominal pain, chills, diarrhea, nausea, vomiting or low back pain. Note for Infection: does urinate after intercourse not much caffeine does wipe front t o back does wear pantiliner- encourage avoid this- no flank painno feverEncounter Diagnosis: Acute cystitis without hematuria [facility] Office Visit On: 18-Jun-2015 9:19 Encounter Reason: Follow up, Diagnostic Procedure Results - Diagnostic tests include ultrasound (thyroid ). Date: (06-11-2015). Follow up visit with no current symptoms.Encounter Diagnosis: Thyroid nodule, End: 18-Jun-2015 10:33 Current nonsmoker (Renamed from Current non-smoker), Uterine fibroid, Weight gain [facility] Historical Summary On: 18-Jun-2015 7:27 [facility] End: 18-Jun-2015 7:31 Phone Encounter On: 07-Jun-2015 9:33 Encounter Diagnosis: Thyroid nodule End: 07-Jun-2015 9:38 [facility] Phone Encounter On: 25-Oct-2014 14:13 Encounter Diagnosis: Thyroid nodule End: 25-Oct-2014 14:17 [facility] Office Visit On: 16-Oct-2014 9:28 Encounter Reason: Well Women Exam - Pap smear: date of last pap: (2007 here). Patient exercises a daily (5-7). The patient's libido is absent. The patient reports that she does not perform monthly breast self exam. The p End: 16-Oct-2014 12:30 atient denies the use of oral contraceptives or hormone replacement therapy. Menstruation: Last menstrual period date: (melvi-menopausal -- here and there ).Encounter Diagnosis: Well Woman Exam (V72.31) (Pap,Mammo,Routine Female) (Renamed from Well Woman V72.31 (p,m)), Dyspareunia, Goiter, Uterine fibroid (218.9), Abnormal vaginal bleeding (623.8) [facility] Phone Encounter On: 21-Jun-2014 11:50 Encounter Diagnosis: Breast cancer screening End: 21-Jun-2014 11:52 [facility] Office Visit On: 30-Aug-2012 15:47 Encounter Reason: Foot Problem - Symptoms include foot pain. Symptoms are located in the right foot. The symptoms occur constantly. The patient describes symptoms as moderate in severity and unchanged. Symptoms are exace End: 30-Aug-2012 16:59 rbated by weight bearing, walking, standing and direct pressure.Encounter Diagnosis: Foot pain (729.5) [facility] Office Visit On: 19-Apr-2012 8:54 Encounter Reason: Cough - The onset of the cough has been gradual. The cough is characterized as productive of mucoid sputum. The amount of sputum produced is scanty. The cough occurs mainly at night. The symptoms are a End: 19-Apr-2012 13:15 ggravated by supine posture. The symptoms have been associated with hoarseness (dry ) and sore throat (dry), while the symptoms have not been associated with fever, headache, runny nose or wheezing. the color of the sputum is clear. Encounter Diagnosis: Cough (786.2), CERUMEN IMPACTION (380.4) [facility] Office Visit On: 30-Sep-2011 15:38 Encounter Reason: Rash, [ADDITIONAL REASON] Rash - Symptoms include skin bumps and skin redness, while symptoms do not include draining, pain or skin weeping. The skin rash is located on the left hand and right hand. Onset wa End: 01-Oct-2011 22:09 s sudden 3 day(s) ago. Onset followed skin contact with an allergen (previously but not recently). The symptoms occur constantly. The patient describes this as moderate in severity and worsening. Associ ated symptoms do not include fever, purulent drainage or serous discharge. Current treatment includes antihistamines. Note for Rash: Also located on her forehead and back.- it did go away with pred then 2 days later back again Encounter Diagnosis: CONTACT DERMATITIS D/T POISON CARI, (692.6) [facility] Office Visit On: 10-Sep-2011 8:10 Encounter Diagnosis: CONTACT DERMATITIS D/T POISON CARI, (692.6) End: 10-Sep-2011 21:24 [facility] Office Visit On: 19-Dec-2010 6:57 Encounter Diagnosis: Urinary retention (788.20), Urinary tract infection, site not specified (599.0) End: 19-Dec-2010 7:38 [facility] Office Visit On: 06-Nov-2010 7:25 Encounter Reason: Follow up tests - Diagnostic tests include ultrasound. Date: (10/29/10). Follow up visit with no current symptoms. There is a family history of breast cancer (aunt), cardiovascular disease (father) and m End: 06-Nov-2010 7:53 yocardial infarction before age 55 (father) , while there is no family history of cystic fibrosis, Down's syndrome or mental retardation.Encounter Diagnosis: Urinary retention (788.20), Uterine fibroid (218.9) [facility] Office Visit On: 24-Oct-2010 7:11 Encounter Reason: Abdominal pain - The onset of the pain has been sudden and has been occurring in a persistent pattern for 4 hours. The course has been constant. The pain is described as a severe sharp pain, crampy and End: 24-Oct-2010 14:10 fullness. The pain is described as being located in the suprapubic area and lower abdomen. The pain radiates to the back. The symptoms have no aggravating factors. The symptoms have no relieving factors . The symptoms have been associated with abdominal distention, bloating and diarrhea, while the symptoms have not been associated with nausea or vomiting.Encounter Diagnosis: Urinary retention (788.20), Abnormal vaginal bleeding (623.8), Vaginal enterocele, congenital or acquired (618.6) [facility] Office Visit On: 22-Jul-2007 8:34 Encounter Reason: Well Women Exam - The patient feels well with minor complaints ,has good energy level and is sleeping well. Pap smear: date of last pap: (2003 ). Contraceptive history: The patient is not using any meth End: 22-Jul-2007 9:08 od of contraception at this time. Patient exercises a daily. The patient's libido is normal. The patient reports that she performs monthly self breast exam. Calcium intake includes 1500 mg with Vit D da diane supplement. Menstruation: Last menstrual period date: (07-08-07). Encounter Diagnosis: Well Woman Exam (V72.31) (Pap,Mammo,Routine Female) (Renamed from Well Woman V72.31 (p,m)) [facility] Office Visit On: 26-Apr-2007 15:03 Encounter Reason: new patient female physical - Last seen more than 1 year ago. General health: feels well with no complaints ,has good energy level and is sleeping well. The patient's appetite is normal. Nutrition: norm End: 26-Apr-2007 16:28 al/adequate. Exercises 5 days per week. Sleeps on average 7 hours per night. Normal bowel and bladder habits. Safety measures include appropriate use of safety belts and home smoke detectors. Current em otional problems include anxiety. screening, mammography ( ) ,screening, Pap smear ( ) and screening, visual acuity (2006 Dr. Sosa ). 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
--- OUTSIDE RECORDS SUMMARY | 2018-05-04 10:00 | XMS RPT_ITS | Continuity of Care Document ---
:1955 Author Organization [facility] Address [facility] [address] [place] [address] Phone Care Team Providers Name Role Phone Horace RAYMOND, Nehal Castellanos Unavailable Emily Yuen DO Unavailable Dr. Shaneka Summers MD Unavailable TIMMY Briceño Unavailable Unavailable Unavailable Unavailable Problems Name Dates Details AAA (abdominal aortic aneurysm) (I71.4, 441.4) Comments: found 18 2.[address] west I will go ahead and recheck the aorta in 4months to assure no change then 6months then yearly if not change notthink need to see jenna yet Status: Active Abnormal fasting glucose (R73.01, 790.29) [...] Active BMI 23.0-23.9, adult (Z68.23, V85.1) Comments: BMI=23.91 Status: Active Current nonsmoker (Renamed from Current [...] adn working well. Status: Active Encounter for screening colonoscopy (Z12.11, V76.51) Comments: due in February 2018 Status: Active Goiter (E04.9, 240.9) Comments: stillthere but us good. increase overall size but no concnering nodules 2016 Status: Active Need for Tdap vaccination (Renamed from Need for sybnybpuaf-myzjmxz-csqzjkwis (Tdap) vaccine, adult/adolescent) (Z23, V06.1) Status: Active Non-STEMI (non-ST elevated myocardial infarction) (I21.4, 410.70) Comments: 03-08-18 [facility] had cardiac cath no evidence of sig. CAD follow Dr. Thrasher think may be arrthymia not identified. could be vasospasm. has 30 day even monitor then if not pick anything up then impl antable. is on low does bbkler talk about side effects with her and what to expect when exercise. at this point willnot exercise just walk to cleared by cardio. Status: Active Postmenopausal (Renamed from Postmenopausal status) (Z78.0, V49.81) Status: Active Pregnancies () Comments: 4 Status: Active Thyroid nodule (E04.1, 241.0) Comments: us good numerous times. Status: Active Uterine fibroid (D25.9, 218.9) Comments: had hysteroscopy and D and C with Dr. Summers ultrasound 10-24 had fibroid benign no signs [...] better with anxiety. time and working on [employer] Ricki Hendrickson and Shaneka Delacruz 1000 gifts. Status: Active Medications Name Dates Details CENTRUM ADULTS (Oral Tablet) Active 1 qd Metoprolol Tartrate 25 MG Oral Tablet 1/2 Tablet Tablet qd for 0 days Quantity: 30 {Tablet} Refills: 0 Ordered:15-Mar-2018 Nehal Vu MD, MD, Dana M Start : 10-Mar-2018 Active Augmentin 875-125 MG Oral Tablet 1 Tablet Tablet bid for 14 days Quantity: 28 {Tablet} Refills: 0 Ordered:03-Feb-2018 Nina Estrada Start : 03-Feb-2018 End : 17-Feb-2018 Inactive CIPRO, 500MG (Oral Tablet) 1 Tablet bid [...] days Quantity: 14 {Capsule} Refills: 0 Ordered:10-Sep-2011 Nehal Vu MD, MD, Dana M Start : 10-Sep-2011 End : 17-Sep-2011 Inactive [...] days Quantity: 30 {Capsule} Refills: 0 Ordered:30-Aug-2012 Nataliia Childress LPN Start : 19-Apr-2012 End : 30-Aug-2012 Inactive [...] knee 1974 Status: Inactive as of 18-Jun-2015 Abdominal pain, acute, left lower quadrant (Renamed from Acute abdominal pain in left lower quadrant) (R10.32, 789.04) Comments: think she has diverticulitis talk to her about and cause. not think in reporductive. did UA. willtreat with atb cmp yesterday good add some labs. tell side effects of augmentin will call tomorrow. if w pattyjuan ramon will call my cellphone. due for colonscopy. will do after better. if worsen CT scan Status: Resolved as of 15-Mar-2018 Abnormal vaginal bleeding (N93.9, 623.8) Comments: still bleedin but mother lat 61 yo. will chek us and labs seen marcelo in past Status: Inactive as of 18-Jun-2015 [...] (R05, 786.2) Status: Inactive as of 18-Jun-2015 Encounter for hepatitis C virus screening test for high risk patient (Z11.59, V73.89) Status: Resolved as of 15-Mar-2018 Foot pain (M79.673, 729.5) Comments: bilateral. worse in right. done nsaids strecthes, ice and good shoe wear. ? plater fascitis. worse at end of day not in am. to podaitry to assure right dx. then tape inject possible orthotics. Status: Inactive as of 18-Jun-2015 Screening mammogram, encounter for (Z12.31, V76.12) Status: Resolved as of 15-Mar-2018 Urinary retention (R33.9, 788.20) Comments: postviod residual was better talk wtih shriner yesterday and not think cause increase UTI. [...] Comments: HYSTEROSCOPY, WITH DILATION AND CURETTAGE Completed (51919) Comments: Dr. Summers Left knee Completed Comments: repair when 18 years old football knee Date Value Details 08-Mar-2018 Chest 1 View (Portable) Result: Comments: See Note; NOTES: [facility] Imaging Services [address] [place] [address] Chest 1 View (Portable) MR#: [id number] Acct: [id number] Name: SAMI CAMPUZANO Rep #: [id number] : 1955 F 62 From: Orlin Trejo DO PCP: Nehal Vu MD Status: REG ER Study: Chest 1 View (Portable) Date of Exam: 03/08/18 Exam# [id number] Ordering Dr: Reggie Clark MD STUDY: X-RAY CHEST REASON FOR EXAM: Female, 62 years old. Chest pain TECHNIQUE: Single frontal view COMPARISON: None. FINDINGS: The lungs are clear and expanded. There is no demonst rated pleural abnormality. Normal size heart. Normal mediastinum and chinedu. Normal visualized pulmonary arteries. Normal visualized aortic arch and descending thoracic aorta. Normal visualized thoracic spine. Normal visualized ribs, clavicles, and shoulders. Bony infarct of the left humerus. There is no demonstrated abnormality of the visualized soft tissue structures of the upper abdomen. RAD/Chest 1 View (Portable) IMPRESSION: Normal x-ray examination of the chest. Electronically Signed: Orlin Trejo DO at 19:09 EST Tel [phone] , Service support , CC: Nehal Vu MD; Reggie Clark MD Supervisor Pipeline: Signed 22-Jun-2017 Dexa Bone Density Study (HP) Result: Comments: See Note; NOTES: [facility] Imaging Services [address] [place] [address] Dexa Bone Density Study (HP) MR#: [id number] Acct: [id number] Name: SAMI CAMPUZANO Rep #: [id number] : 1955 F 61 From: Ash Dennis MD PCP: Nehal Vu MD Status: REG CLI Study: Dexa Bone Density Study (HP) Date of Exam: 06/22/17 Exam# [id number] Ordering Dr: Nehal Vu MD ST UDY: DUAL ENERGY X-RAY ABSORPTIOMETRY / DXA [...] Ash Dennis MD at 13:01 EDT Tel [phone], Service support , CC: Nehal Vu MD Supervisor Pipeline: Signed 22-Jun-2017 SCREENING MAMM (CAD), BILAT Result: Comments: See Note; NOTES: [facility] Imaging Services [address] [place] [address] SCREENING MAMM (CAD), BILAT MR#: [id number] Acct: [id number] Name: SAMI CAMPUZANO Rep #: [id number] : 1955 F 61 From: Ash Dennis MD PCP: Nehal Vu MD Status: REG CLI Study: SCREENING MAMM (CAD), BILAT Date of Exam: 06/22/17 Exam# [id number] Ordering Dr: Nehal Vu MD MAMM OGRAPHY [...] delay biopsy of a clinically suspicious abnormality. [id number] Electronically Signed: Ash Dennis MD at 10:59 EDT Tel [phone], Service support , CC: Nehal Vu MD Supervisor Pipeline: Signed 26-May-2016 Thyroid Result: Comments: See Note; NOTES: [facility] Imaging Services [address] [place] [address] Verdana 4d Thyroid MR#: [id number] Acct: [id number] Name: SAMI CAMPUZANO Rep #: [id number] : 1955 F 60 From: Reece Hadley DO PCP: Nehal Vu MD Status: REG CLI Study: Thyroid Date of Exam: 05/26/16 Exam# [id number] Ordering Dr: Nehal Vu MD STUDY: THYROID [...] at 21:36 EST Tel , Service support , CC: Nehal Vu MD Supervisor Pipeline: Signed 23-May-2016 SCREENING MAMM (CAD), BILAT Result: Comments: See Note; NOTES: [facility] Imaging Services [address] [place] [address] Verdana 4d SCREENING MAMM (CAD), BILAT MR#: [id number] Acct: [id number] Name: SAMI CAMPUZANO ep #: [id number] : 1955 F 60 From: Ash Dennis MD PCP: Nehal Vu MD Status: REG CLI Study: SCREENING MAMM (CAD), BILAT Date of Exam: 05/23/16 Exam# [id number] Ordering Dr: Rojelio Vu MD MAMMOGRAPHY - [...] delay biopsy of a clinically suspicious abnormality. [id number] Electronically Signed: Ash Dennis MD at 8: 08 EST Tel [phone], Service support [phone], CC: Nehal Vu MD Supervisor Pipeline: Signed 11-Jun-2015 Thyroid Result: Comments: See Note; NOTES: [facility] Imaging Services [address] [place] [address] Vernehal 4d Thyroid MR#: [id number] Acct: [id number] Name: SAMI CAMPUZANO Rep #: [id number] : 1955 F 59 From: Ash Dennis MD PCP: Nehal Vu MD Status: REG CLI Study: Thyroid Date of Exam: 06/11/15 Exam# [id number] Ordering Dr: Nehal Vu MD STUDY: THYROID [...] 7.0 mm. The regional lymph nodes are aninta l. IMPRESSION: Stable examination demonstrating stable bilateral thyroid nodules and thyroid enlargement Electronically Signed: Ash Dennis MD 06/10 at 15:52 EST Tel [phone], Service support [phone], CC: Nehal Vu MD Supervisor Pipeline: Signed 11-Jan-2015 Operative Report Result: Comments: See Note; NOTES: [facility] Medical Records Department [address] [place] [address] Operative Report MR#: [id number] Acct: [id number] Name: SAMI CAMPUZANO Rep #: [id number] : 1955 59 From: Nayeli Summers MD PCP: Nehal Vu MD Status: [facility] DATE OF SERVICE: 01/08/2015 DATE OF SERVICE: January 08, 2015 PREOPERATIVE DIAGNOSES: Uterine leio myoma and postmenopausal bleeding. POSTOPERATIVE DIAGNOSES: Uterine leiomyoma and postmenopausal bleeding plus thickened endometrium. PROCEDURES: Dilatation and curettage, hysteroscopy. SURGEON: Nayeli Summers M.D. ESTIMATED BLOOD LOSS: Minimal. FLUIDS: Lactated [...] the office in 1-2 weeks' time. Nayeli Summers MD T: NTS JOB: [id number] 01/11/15 0949 <Electronically sign ed by Nayeli Summers MD> Date Nayeli Summers MD Cosigner Signature (If Indicated): Date CC: Nayeli Summers MD; Nehal Vu MD Date Dictated: 01/08/15 154 Date Transcribed: 01/08/151540 Supervisor Pipeline: Signed 08-Jan-2015 Discharge Instruction Result: Comments: See Note; NOTES: [facility] Medical Records Department [address] [place] [address] Instructions for Home/Discharge Instructions 01/08/15 1516 MR#: [id number] ct: [id number] Name: SAMI CAMPUZANO Rep #: [id number] : 1955 59 From: Nayeli Summers MD PCP: Nehal Vu MD Status: REG [facility] Discharge Diet: No Restrictions Discharge Activity: [...] DAILY 01/02/15 Please Follow Up With: Nayeli Summers When: 1-2 weeks in office 01/08/151516 <Electronically signed by Nayeli Summers MD> Date Nayeli Summers MD CC: Nehal Vu MD 08-Jan-2015 Operative Report Result: Comments: See Note; NOTES: [facility] Medical Records Department [address] [place] [address] Operative Report 01/08/15 1514 MR#: [id number] Acct: [id number] Name: SAMI CAMPUZANO Rep #: [id number] : 1955 59 From: Nayeli Summers MD PCP: Nehal Vu MD Status: REG [facility] Y Location: [place] [address] Operative Report (Blank) Date of Procedure: 01/08/15 Preop: Uterin e leiomyoma and postmenopausal bleeding Postop: Same + thickened endometrium Procedure: D and C, hysteroscopy Surgeon: Marcelo EBL: minimal Fluids: Lactated ringers Meds: 1% Lidocaine local to the cervix Anesthesia: MAC Urine: 50cc 01/08/151515 <Electronically signed by Nayeli Summers MD> Date Nayeli Summers MD CC: Nayeli Summers MD; Nehal Vu MD Signed 23-Oct-2014 Pelvic (Non ) Result: Comments: See Note; NOTES: [facility] Imaging Services [address] [place] [address] Ultrasound Report MR#: [id number] Acct: [id number] Name: SAMI CAMPUZANO Rep #: [id number] : 1955 F 59 From: Ash Dennis MD PCP: Nehal Vu MD Status: REG CLI Study: Pelvic (Non ) Date of Exam: 10/23/14 Exam# [id number] Ordering Dr: Nehal Vu MD STUDY: ULTRASOUND [...] Ash Dennis MD at 13:27 EDT Tel [phone], Service support [phone], CC: Nehal Vu MD Supervisor Pipeline: Signed 23-Oct-2014 Pelvic (Non ) Result: Comments: See Note; NOTES: [facility] Imaging Services [address] [place] [address] Ultrasound Report MR#: [id number] Acct: [id number] Name: SAMI CAMPUZANO Rep #: [id number] : 1955 F 59 From: Ash Dennis MD PCP: Nehal Vu MD Status: REG CLI Study: Pelvic (Non ) Date of Exam: 10/23/14 Exam# [id number] Ordering Dr: Nehal Vu MD ADDENDU M by Ash Dennis MD on 10/25/14 at 1556 ADDENDUM This is an addendum report. Prior exa mination of the pelvis was made available for comparison. Since prior study, the uterus has increased in size there are the previously seen fibroids have increased in size as well . Electronically Signed: Ash Dennis MD at 15:56 EDT Tel [phone], Service support [phone], 10/25/14 1556 Date cc: Nehal Vu MD [...] Dennis MD 5 at 13:27 EDT Tel [phone], Service support [phone], CC: Nehal Vu MD Supervisor Pipeline: Signed 23-Oct-2014 Thyroid Result: Comments: See Note; NOTES: [facility] Imaging Services [address] [place] [address] Ultrasound Report MR#: [id number] Acct: [id number] Name: SAMI CAMPUZANO Rep #: [id number] : 1955 F 59 From: Ash Dennis MD PCP: Nehal Vu MD Status: REG CLI Study: Thyroid Date of Exam: 10/23/14 Exam# [id number] Ordering Dr: Nehal Vu MD STUDY: THYROID [...] Ash Dennis MD at 14:04 EDT Tel [phone], Se rvice support [phone], CC: Nehal Vu MD Supervisor Pipeline: Signed Immunization Name Dates Details Td (7 years and up) on: 26-Apr-2007 Comments: given in left deltoid, lot#[id number], exp.09.22.07--WF Family History Unknown Family Member Name [...] Grandfather Comments: Status: Active Paternal Grandmother Comments: [place] age 76 Status: Active Sister 1 Comments: borderline HTN Status: Active Sister 2 Comments: irregular heart beat (on medication) Status: Active Sister 3 Comments: healthy Status: Active Sister 4 Comments: healthy Status: Active Social History Name Dates Details Caffeine Use Comments: 1 cup green tea qd Status: Active Current Work/Study Status Comments: 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 Status: Active Living Situation Comments: , Lives with spouse Status: Active No Drug Use Status: Active Non Drinker/No Alcohol Use Status: Active Non Smoker/No Tobacco Use Status: Active Tobacco use: Never smoker. Status: Active Smoking Status Name Dates Details Never smoker Vital Signs Date Test Result Details :22 Temperature 97.6 f Comments: Method: Temporal Pulse 56 /min Comments: Pattern: Regular Respiration Rate 20 /min Comments: Pattern: Unlabored O2 SAT 99 % Comments: Room air BP Systolic 90 mm[Hg] Comments: Patient Position: Sitting; Cuff Location: Left Arm; Cuff Size: Standard BP Diastolic 60 mm[Hg] Comments: Patient Position: Sitting; Cuff Location: Left Arm; Cuff Size: Standard Weight 135 lb Height 63 in Body Mass Index Calculated 23.91 kg/m2 Body Surface Area Calculated 1.64 m2 :21 Temperature 97.6 f Comments: Method: Temporal [...] kg/m2 Body Surface Area Calculated 1.62 m2 : Temperature 97.6 f Comments: Method: Temporal Pulse [...] 0.00 cm Results Date Description Value Details 59-Nqp-488866:15 Basic Metabolic Profile (BMP) Comments: [facility] [address] [place], [address] GAP 6 (Normal) Range: 5-15 CO2 30.0 mmol/L (Normal) Range: 21.0-32.0 CL 103 mmol/L (Normal) Range: 98-107 K 3.6 mmol/L (Normal) Range: 3.5-5.1 NA 139 mmol/L (Normal) Range: 136-145 CA 8.8 mg/dL (Normal) Range: 8.5-10.1 BUN/CRE 28.0 {RATIO} (Abnormal) Range: 10-20 Estimated CRCL 80.72 ml/min (Normal) EST GFR - AA 121 mL/min (Normal) Comments: GFR Calc EST GFR 100 mL/min (Normal) Comments: Non- GFR Calc CREAT,SERUM 0.64 mg/dL (Normal) Range: 0.55-1.02 Comments: The validity of the calculated GFR AND GFRAA in patients over70 years has not been determined. Clinical correlation isessential. BUN 18 mg/dL (Normal) Range: 7-18 GLU 98 mg/dL (Normal) Range: 74-106 Comments: Please note revised GLUCOSE reference range ytchemamu44/02/2018. 47-Lyy-432526:15 CBC W/Diff, Automated Comments: [facility] [address] [place], [place], [address] Absolute Lymph 1.97 {X10_3/ul} (Normal) Range: 0.83-4.51 Absolute Neut 2.9 {X10_3/uL} (Normal) Range: 2.0-7.7 IM GRAN % 0.200 % (Normal) Range: 0.0-0.9 Comments: IG% - Immature Granulocytes (promyelocytes, myelocytes andmetamyelocytes) > 1% indicates that a LEFT SHIFT is Present. BASO% 0.4 % (Normal) Range: 0-1 EO% 1.8 % (Normal) Range: 0-5 MONO% 9.8 % (Normal) Range: 0-10 LY% 35.7 % (Normal) Range: 19-41 NEUT% 52.1 % (Normal) Range: 47-70 MPV 10.7 fL (Normal) Range: 6.2-12.0 PLT 196 K/mm3 (Normal) Range: 150-450 RDW SD 41.9 fL (Normal) Range: 35.1-43.9 RDW CV 13.4 % (Normal) Range: 11.6-14.6 MCHC 32.3 {g/gl} (Normal) Range: 32-36 MCH 28.0 pg (Normal) Range: 27.0-32.0 MCV 86.7 fL (Normal) Range: 81-99 HCT 41.8 % (Normal) Range: 37-47 HGB 13.5 g/dL (Normal) Range: 12.0-15.0 RBC 4.82 {M/mm3} (Normal) Range: 4.2-5.4 WBC 5.5 K/mm3 (Normal) Range: 4.4-11.0 :15 D-Dimer Quantitative (DVT/PE) Comments: [facility] [address] [place], [place], [id number] D-DIMER QUANT < 0.27 {FEU/ug/m} (Abnormal) Range: 0.27-0.49 Comments: NORMAL D-Dimer level (<0.50) indicates no DVT or PE. :15 Troponin-I Comments: [facility] [address] [place], [place], [id number] TROPONIN-I 0.322 ng/mL (Abnormal) Comments: TROPONIN-I EXPECTED VALUES <0.045 Negative 0.045 - 0.590 Consistent with Cardiac Damage > OR = 0.600 Critical Value Not every elevated troponin is indicative of TX. T hesevalues should be used with clinical judgement in examiningthe patient's clinical picture for diagnosis. To establisha diagnosis of TX versus myocardial injury, there must be ademonstrated rise and/ or fall in the troponin values, inaddition to ischemic symptoms, EKG changes, new regionalwall motion abnormality, and/or angiographical evidence. PLEASE NOTE: REFERENCE RANGES EDITED 17:45 CBC W/Diff, Automated Comments: [facility] [address] [place], [place], [id number] Absolute Lymph 0.66 {X10_3/ul} (Abnormal) Range: 0.83-4.51 [...] 8.5 K/mm3 (Normal) Range: 4.4-11.0 :45 Lipase (45142) Comments: [facility] [address] [place] [address], [address] LIPASE 77 U/L (Normal) Range: 73-393 :45 Amylase (30083) Comments: [address], [address] MICHELL 74 U/L (Normal) Range: 25-115 :26 Urinalysis, Office (05396) UA - LEUKOCYTE ESTERASE Negative (Normal) UA [...] PANEL, COMPREHENSIVE Comments: PATIENT WAS FASTINGPERFORMED BY: [facility]4499 [facility] [id number] (17[address]) ALT (SGPT) 15 [iU]/L (Normal) Range: 0-32 [...] 8-27 Glucose 86 mg/dL (Normal) Range: 65-99 33-Hnp-64051:56 LIPOPROTEIN, BLD, BY NMR Comments: PATIENT WAS FASTINGPERFORMED BY: [facility] [id number] ([address]) LP-IR Score <25 (Normal) Comments: INSULIN RESISTANCE MARKER <--Insulin Sensitive Insulin Resistant--> Percentile in Reference PopulationInsulin Resistance ScoreLP-IR Score Low 25th 50th 75th High <27 27 45 63 >63LP-IR Score is inaccurate if patient is non-fasting. .The LP-IR score is a laboratory developed i [facility] that has beenassociated with insulin resistance [...] were developed and their performance characteristicsdetermined by [employer]. These assays have not been cleared by [...] 1600 - 2000 Very High > 2000 45-Etz-063739:04 MICROALBUMIN: CREATININE RATIO Comments: PATIENT NOT FASTINGPERFORMED BY: [facility] Rlojun2787 [facility] [id number] (06408) AND (33652) Alb/Creat Ratio MALD2 {mg/g_creat} Range: 0.0-30.0 (Abnormal) Comments: The result is below the assay's limit of quantitation which mayindicate a dilute specimen or other clinical condition. Considerrecollection at a time likely to provide a urine that is moreco ncentrated. Albumin, Urine <3.0 ug/mL (Normal) Creatinine, Urine 8.3 mg/dL (Normal) 29-Nvf-949484:04 Metabolic Panel, Comprehensive Comments: PATIENT NOT FASTINGPERFORMED BY: [facility] Bosute6747 [facility] [id number] (52433) ALT (SGPT) 19 [iU]/L (Normal) Range: 0-32 [...] Glucose, Serum 88 mg/dL (Normal) Range: 65-99 19-Qow-626364:04 CBC WITH MANUAL DIFF Comments: PATIENT NOT FASTINGPERFORMED BY: [facility] HospitalIrxkgh3070 [facility] [id number] Information: NURSE DRAW (88166) Immature Grans (Abs) 0.0 {x10E3/uL} (Normal) Range: [...] 3.77-5.28 WBC 3.2 {x10E3/uL} (Abnormal) Range: 3.4-10.8 88-Bat-587160:04 URINALYSIS (16183) Comments: PATIENT NOT FASTINGPERFORMED BY: [facility] HospitalPifrpj9899 [facility] [id number] Microscopic Examination MICNIP (Normal) Comments: Microscopic not indicated and not performed. Nitrite, Urine Negative (Normal) Urobilinogen,Semi-Qn 0.2 mg/dL (Normal) Range: 0.2-1.0 Bilirubin Negative (Normal) Occult Blood Negative (Normal) Ketones Negative (Normal) Glucose Negative (Normal) Protein Negative (Normal) WBC Esterase Negative (Normal) Appearance Clear (Normal) Urine-Color Yellow (Normal) pH 6.5 (Normal) Range: 5.0-7.5 Specific [place]onset 1.008 (Normal) Range: 1.005-1.030 :47 IGP, Aptima HPV, Comments: Source.............Cervix;EndocervixNo. of containers..01 CYTYC Thin Prep VialPATIENT NOT FASTINGPERFORMED BY: =G [facility] Vmwpmyqznh866 [facility] [place] [id number] BY: WB [facility] rfx 16/18,45 rp Tksyhsssja740 [facility] [place] [id number] HPV Aptima Negative (Normal) Comments: This test [...] MALIGNANCY.Satisfactory for evaluation. No endocervical component is identified.Z01.419Nikky Rosa, Shellfish Processing Machine Tender (ASCP) :47 Thin prep Pap Comments: Source.............Cervix;EndocervixNo. of containers..01 CYTYC Thin Prep VialPATIENT NOT FASTINGPERFORMED BY: =G [facility] Mwjpzgbsfc102 [facility] [place], Oper[facility] By [facility] [place] [id number] BY: WB [facility] (11964) (no STD rp [address] [place] [address] [id number] Information: PT-[id number] testing) Age Gdln ACOG Testing 30-65 (Normal) 63-Jvl-57678:32 CALCIFIDIOL (24321) VIT D 25 Comments: PATIENT WAS FASTINGPERFORMED BY: [facility] Uikepb3126 [facility] [place] [id number] Vitamin D, 25-Hydroxy 38.1 ng/mL (Normal) Range: 30.0-100.0 Comments: Vitamin D deficiency has been defined by the [place] ofMedicine and an Endocrine Society practice guideline as alevel of serum 25-OH vitamin D less than 20 ng/mL (1,2).The Endocrine Society went on to further define vitamin Dinsufficiency as a level between 21 and 29 ng/mL (2).1. IOM ([place] of Medicine). 2010. Dietary reference intakes for calcium and D. [place]: The National Academies Press.2. De MF, Agustin PEREIRA, Andree CHAO, et al. Evaluation, treatment, and prevention of vitamin D deficiency: an Endocrine Society clinical practice guideline. JCEM. 2010; 96(7):1911-30. 26-Dzh-94754:32 HGB A1C (89426) Comments: PATIENT WAS FASTINGPERFORMED BY: [facility] Dozjxu7710 [facility] [id number]; fu 5-30 db Hemoglobin A1c 5.9 % (Abnormal) Range: 4.8-5.6 Comments: . Pre-diabetes: 5.7 - 6.4 Diabetes: >6.4 Glycemic control for adults with diabetes: <7.0 :05 URINE CHARLY CULTURE-IDENTIFICATN Comments: PATIENT NOT FASTINGPERFORMED BY: [facility] Sfnukv8758 [facility] [id number] Information: H12565 (62598) Result 1 MUG (Normal) Comments: Mixed urogenital flora1,000 Colonies/mL Urine Culture,Comprehensive Final report (Normal) :29 Urinalysis, Office (72787) UA - LEUKOCYTE ESTERASE Negative (Normal) UA - NITRITE Negative (Normal) URINE UROBILINGN CHUY TIMED Normal mg/dL (Normal) UA - PROTEIN Negative mg/dL (Normal) UA - PH 6 (Abnormal) UA - BLOOD Non Hemolyzed Trace (Normal) UA - SPECIFIC GRAVITY 1.015 (Normal) UA - KETONES Negative mg/dL (Normal) UA - BILIRUBIN Negative (Normal) UA - GLUCOSE Negative (Normal) 61-Doy-269741:59 URINE CHARLY CULTURE-CHUY COL Comments: PATIENT NOT FASTINGPERFORMED BY: [facility] Grcmvg5226 [facility] [id number] Information: SR[place]:[facility] [place] [id number] COUNT (39247) Result 1 ECV (Abnormal) Comments: Escherichia coli, [...] S Urine Final report Culture,Comprehensi (Abnormal) ve 18-Mcw-614918:23 Urinalysis, Office (69082) UA - LEUKOCYTE ESTERASE Trace (Normal) UA - NITRITE Negative (Normal) URINE UROBILINGN CHUY Normal mg/dL TIMED (Normal) UA - PROTEIN Negative mg/dL (Normal) UA - PH 7 (Normal) UA - BLOOD Negative (Normal) UA - SPECIFIC GRAVITY 1.010 (Normal) UA - KETONES Negative mg/dL (Normal) UA - BILIRUBIN Negative (Normal) UA - GLUCOSE Negative (Normal) ENDOMETRIAL See Note (Normal) Comments: [facility] [address] [place], [place], [address] :02 BX/CURETTINGS Comments: Patient: SAMI CAMPUZANO : 1955 (59/F) Acct Num: [id number] Phys: Nayeli Summers MD Unit Num: [id number] Loc: [facility] [place] Specimen: [id number] Received: 01/09/15 - 1020 Spec Type: ENDOM [...] t otally submitted in one cassette. / AM: 01/09/15 TC:5 CPT: 05388 HEADER OPERATION: Hysteroscopy, diagnostic D AND C PRE-OP DIAGNOSIS: Leiomyoma of uterus, postmenopausal bleeding TISSUE SUBMITTED: Endometrial curettings MICROSCOPIC DESCRIPTION Slides are reviewed. MICROSCOPIC DIAGNOSIS Endometrial curettings: Weakly proliferative endometrium with cystic atrophic ibarra es. SJ: 01/10/15 Signed Billy Padron 01/10/15 <signature on file> 36-Sob-301934:30 ,Urine Comments: Test performed at:[facility] [address] [place] [address] [id number] HCGUQUAL Negative {Negative} (Normal) Comments: Very dilute urine specimens, as indicated by a low specificgravity, may not contain insurance healthcare representative levels of hCG.If is still suspected, a first morning urinespecimen should be collected 48 hours later and tested. :08 CBC With Differential/Platelet Comments: PATIENT WAS FASTINGPERFORMED BY: [facility] Lxrpaz2111 [facility] [id number] Information: [id number] Immature Grans (Abs) 0.0 {x10E3/uL} (Normal) Range: [...] 3.77-5.28 WBC 4.5 {x10E3/uL} (Normal) Range: 3.4-10.8 18-Oct-20147:08 Comp. Metabolic Panel (14) Comments: PATIENT WAS FASTINGPERFORMED BY: [facility] [id number] ALT (SGPT) 18 [iU]/L (Normal) Range: 0-32 [...] 204.3 pg/mL Comments: PATIENT WAS FASTINGPERFORMED BY: [facility] ([facility] [id number] 8 (Normal) Comments: Adult Female: Follicular phase 12.5 - 166.0 Ovulation phase 85.8 - 498.0 Luteal phase 43.8 - 211.0 Postmenopausal <6.0 - 54.7 1st trimester 215.0 - & gt;4300.0 Girls (1-10 years) 6.0 - 27.0Roche ECLIA methodology :08 FSH and LH Comments: PATIENT WAS FASTINGPERFORMED BY: [facility] ([facility] [id number] FSH 43.8 m[iU]/mL (Normal) Comments: Follicular phase 3.5 - 12.5 Ovulation phase 4.7 - 21.5 Luteal phase 1.7 - 7.7 Postmenopausal 25.8 - 134.8 LH 47.0 m[iU]/mL (Normal) Comments: Follicular phase 2.4 - 12.6 Ovulation phase 14.0 - 95.6 Luteal phase 1.0 - 11.4 Postmenopausal 7.7 - 58.5 :08 Lipid Panel With LDL/HDL Comments: PATIENT WAS FASTINGPERFORMED BY: [facility] ([facility] [id number] Ratio LDL/HDL Ratio 1.9 {ratio_units} (Normal) Range: [...] Microscopic Examination Comments: PATIENT WAS FASTINGPERFORMED BY: [facility] [employer] [facility] [id number] Bacteria Few (Normal) Mucus Threads Present (Normal) Epithelial Cells (non >10 {/hpf} Range: 0 - 10 renal) (Abnormal) RBC 0-2 {/hpf} (Normal) Range: 0 - 2 WBC 0-5 {/hpf} (Normal) Range: 0 - 5 : Prolactin 26.7 ng/mL Comments: PATIENT WAS FASTINGPERFORMED BY: [employer] [facility] [id number] 08 (Abnormal) Range: 4.8-23.3 :08 Thyroxine (T4) Free, Direct, S Comments: PATIENT WAS FASTINGPERFORMED BY: [employer] Dhtpss2608 [facility] [id number] T4,Free(Direct) 1.02 ng/dL Range: 0.82-1.77 (Normal) Triiodothyronine,Free,Seru 3.5 pg/mL (Normal) Comments: PATIENT WAS FASTINGPERFORMED BY: [employer] Dkjvko1369 [facility] [id number] :08 m Range: 2.0-4.4 TSH 3.990 {uIU/mL} Comments: PATIENT WAS FASTINGPERFORMED BY: [employer] Ubwadb5929 [facility] [id number] :08 (Normal) Range: 0.450-4.500 :08 Urinalysis, Complete Comments: PATIENT WAS FASTINGPERFORMED BY: [facility] HospitalQejvyt4007 [place] [id number] Microscopic Examination See below: (Normal) Comments: Microscopic was indicated and was performed. Microscopic Examination MICRON (Normal) Comments: Microscopic follows if indicated. Nitrite, Urine Negative (Normal) Urobilinogen,Semi-Qn 0.2 mg/dL (Normal) Range: 0.0-1.9 Bilirubin Negative (Normal) Occult Blood Negative (Normal) Ketones Negative (Normal) Glucose Negative (Normal) Protein Negative (Normal) WBC Esterase Negative (Normal) Appearance Clear (Normal) Urine-Color Yellow (Normal) pH 6.0 (Normal) Range: 5.0-7.5 Specific [place] 1.025 (Normal) Range: 1.005-1.030 6-Vso-357276:52 IGP, Aptima HPV, Comments: Source.............Cervical;EndocervicalNo. of containers..01 CYTYC Thin Prep VialPATIENT NOT FASTINGPERFORMED BY: =G [facility] Jndwqbopbb610 [facility] [place] [id number] BY: WB L rfx 16/18,45 [facility] Xhevqkruso192 [facility] [place] [id number] HPV Aptima Negative (Normal) Comments: This test [...] are present.V72.31 ; Routine gynecological examinationMarisol Nava Shellfish Processing Machine Tender (ASCP) 4-Hng-136634:52 IGLisy Lott Comments: Source.............Cervical;EndocervicalNo. of containers..01 CYTYC Thin Prep VialPATIENT NOT FASTINGPERFORMED BY: =G [facility] Fymutqifkt474 [facility] W [id number] BY: WB L HPV,CtNg Age Gdln [facility] Ugmiwursvy087 [facility] W [id number] Information: [id number] Age Gdln ACOG Testing 30-65 (Normal) 19-Dec-20107:18 Urinalysis, Office (37556) UA - LEUKOCYTE ESTERASE Small (Normal) UA - NITRITE Negative (Normal) URINE UROBILINGN CHUY TIMED Normal mg/dL (Normal) UA - PH 7.0 (Normal) UA - BLOOD Non Hemolyzed Trace (Normal) UA - SPECIFIC GRAVITY 1.010 (Normal) UA - KETONES Negative mg/dL (Normal) UA - BILIRUBIN Negative (Normal) UA - GLUCOSE Negative (Normal) 09-Dbu-411111:35 PELVIC (NON ) Radiology Report See Note [...] not visualized. Dictated on 10/29/10 1542 by CARL RAYMOND,BASSAMTranscribed on 07/23/11 1046 by ITS IMPORTSign by MIRIAM HENRY [...] VANCOMYCIN $ <=0.5 S :05 Urinalysis, Office (79870) UA - BILIRUBIN Negative (Normal) UA - BLOOD Hemolyzed Small (Normal) UA - GLUCOSE Negative (Normal) UA - KETONES Negative mg/dL (Normal) UA - LEUKOCYTE ESTERASE Negative (Normal) UA - NITRITE Negative (Normal) UA - PH 6.0 (Normal) UA - PROTEIN Negative mg/dL (Normal) UA - SPECIFIC GRAVITY 1.015 (Normal) URINE UROBILINGN CHUY TIMED 2 mg/dL (Normal) 88-Qxb-94898:46 Thin prep Pap Comments: Source.............Cervical;EndocervicalLMP / Prev Treat...AVD=[id number]. of containers..01 CYTYC Thin Prep VialPATIENT NOT FASTINGPERFORMED BY: KX [facility] [place] Mowx7888 [facility] [id number] [place] [id number] (76287) . . (Normal) DIAGNOSIS: SPRCS (Normal) Comments: NEGATIVE FOR INTRAEPITHELIAL LESION AND MALIGNANCY.FUNGAL ORGANISMS MORPHOLOGICALLY CONSISTENT WITH MAURY SPECIES AREPRESENT.THIS SPECIMEN WAS RESCREENED PART OF OUR METAL FINISH INSPECTOR P [facility] COLLABORATIVEMaguiThree [facility] factory for evaluation. Endocervical and/or squamous metaplasticcells (endocervical component) are present.V72.31 ; Routine gynecological examinationPetra Griggs, Shellfish Processing Machine Tender (ASCP)Samia Parmar, Supervisory Shellfish Processing Machine Tender (ASCP) Note: PAPSMR (Normal) Comments: The Pap [...] resulttherefore, no HPV testing was performed. . 11-Vci-183499:46 BIL DIA DIGITAL & CAD Radiology Report See Note (Normal) Comments: Exam Number: [id number] BILATERAL DIAGNOSTIC DIGITAL MAMMOGRAM CLINICAL INFORMATIONAbnormal mammogram. [...] mammograms werealso examined with computer-aided detection software (Image[employer]er, [employer] Reported By: DAYNA RUSSELL M.D. 13-Jul-20078:02 [facility] DIGITAL & CAD Radiology Report See Note (Normal) Comments: Exam Number: [id number] BILATERAL SCREENING DIGITAL MAMMOGRAM CLINICAL INFORMATIONScreening. Bilateral digital mammography was performed as a screening exam. Standard CC and MLO views were ob tained. Ther e was a delay in issuing the report [facility] [place] [facility]. That study was onAugust [facility]. [...] The mammogramswere also examined with computer-aided detection software([employer].). Reported By: DAYNA RUSSELL M.D. :1 GLU [...] Planned Observations CBC, Platelets & Auto Diff (46974)Indication: Abdominal pain, acute, left lower quadrant (Renamed from Acute abdominal pain in left lower quadrant) On: 86-Scn-65685:26 Request HGB A1C (26950)Indication: Abnormal fasting glucose On: 12-Ivs-715886:54 Request T3, FREE (TRIDOTHYRONINE) (13918)Indication: Thyroid nodule On: 1-Ahs-402445:26 Request T4, FREE (THYROXINE) (28822)Indication: Thyroid nodule On: 0-Qdk-726259:26 Request TSH (52148)Indication: Thyroid nodule On: 4-Fwg-918775:25 Request FSH AND LH (18426)Indication: Abnormal vaginal bleeding On: :24 Request ESTRADIOL (54018)Indication: Abnormal vaginal bleeding On: :24 Request PROLACTIN (08620)Indication: Abnormal vaginal bleeding On: :24 Request T3, FREE (TRIDOTHYRONINE) (34804)Indication: Goiter On: :17 Request T4, FREE (THYROXINE) (61941)Indication: Goiter On: :17 Request TSH (37282)Indication: Goiter On: :17 Request Thin Prep Pap (04143)Indication: Well woman exam On: :15 Request URINALYSIS, W/ MICRO (16883)Indication: Well woman exam On: :15 Request METABOLIC PANEL, COMPREHENSIVE (96921)Indication: Well woman exam On: :15 Request CBC with auto diff (26953)Indication: Well woman exam On: 2-Rno-061229:15 Request LIPID PANEL (07514)Indication: Well woman exam On: 2-Gdx-441523:15 Request URINE CHARLY CULTURE-CUHY COL COUNT (16751)Indication: Acute cystitis without hematuria On: :37 Request URINE CHARLY CULTURE-CHUY COL COUNT (64986)Indication: Urinary retention On: :05 Request Glucose (58179)Indication: WWV On: :46 Request Lipid Panel (53337)Indication: WWV On: :46 Request Planned Encounters Medical; [facility] Pre Wellness Exam (DB Nurse) - db pt pt wanted a wed On: 25-May-2018 8:45 [facility] NURSE, DF Medical; JALYNP Wellness Exam (Doctor) - On: 08-Jun-2018 8:00 [facility] Horace RAYMOND, Nehal Collins MD Planned Procedures Ultrasound - AortaBy: Horace RAYMOND, On: 15-Mar-2018 Intent Nehal Collins MD Comments: 4onths DEXA SCAN AXIAL SKELETON (87231)By: On: 25-May-2017 Intent Nehal Vu MD, MD, Dana M SCREENING DIGITAL TOMOSYNTHESIS OF On: 25-May-2017 Intent BREAST (86431)By: Nehal Vu MD, MD, Dana M TDAP VACCINE >7 IM (16575)By: On: 25-May-2017 Intent Nehal Vu MD, MD, Dana Comments: lot:[id number]:03-26-19rte:IM dose:0.5mlgiven by:GURU Briones Ultrasound - ThyroidBy: Horace RAYMOND, On: 05-May-2016 Intent Nehal Collins MD Comments: recheck 3-17 MAMMOGRAM BREAST BILATERAL SCREENING On: 05-May-2016 Intent DIGITAL (68352)By: Nehal Vu MD, MD, Dana M Ultrasound [...] - PelvisBy: Horace RAYMOND, On: 16-Oct-2014 Intent Nheal Collins MD Ultrasound - ThyroidBy: Horace RAYMOND, On: 16-Oct-2014 Intent Nehal Collins MD MAMMOGRAM, SCREENING, BOTH BREAST On: 21-Jun-2014 Intent (80006)By: Nehal Vu MD, MD, Dana M Aerosol Treatment (79420)By: Alyse On: 19-Apr-2012 Intent Belia HERNANDEZ Wax CurettesBy: Belia Cullen CNP On: 19-Apr-2012 Intent Ear Irrigation (79474)By: Ciesa On: 19-Apr-2012 Intent Belia HERNANDEZ Solu -Medrol Injection, 125 mg On: 10-Sep-2011 Intent (J2930)By: Nehal Vu MD Comments: Lot #[id number]-[id number] hip, IMDose 125mggiven by:Nehal Bowie MD Rocephin Injection, 2 Gram On: 24-Oct-2010 Intent (J0696)By: Benita Carrion DO Comments: Lot #[id number]-R and L hipsDose 2 grams/4ml split into 2 dosesgiven by: Ultrasound - PelvisBy: Murali VILLATORO, On: 24-Oct-2010 Intent Benita THER/PROPH/DIAG INJ, SC/IM On: 24-Oct-2010 Intent (68509)By: Benita Carrion DO MAMMOGRAM, SCREENING, BOTH BREASTS On: 26-Apr-2007 Intent (54186)By: Nehal Vu MD, MD, Dana M TD Injection , IM (67379)By: On: 26-Apr-2007 Intent Horace RAYMOND, Nehal Collins MD Comments: given in left deltoid, lot#[id number], exp.09.22.07-HUMBERTO Castellanos Planned Medications INJECTION, CEFTRIAXONE SODIUM, PER 250 MG Ordered: 24-Oct-2010 Pending Benita Carrion DO INJECTION, METHYLPREDNISOLONE SODIUM SUCCINATE, UP TO 125 MG Ordered: 10-Sep-2011 Pending Nehal Vu MD, MD, Dana M Instructions Name Dates Details Non-STEMI (non-ST elevated myocardial infarction) : How to access health information online Indication: Non-STEMI (non-ST elevated myocardial infarction) Non-STEMI (non-ST elevated myocardial infarction) : How to access health information online - Detail Indication: Non-STEMI (non-ST elevated myocardial infarction) Non-STEMI (non-ST elevated myocardial infarction) : Patient Instructions Indication: Non-STEMI (non-ST elevated myocardial infarction) Diverticulitis : How to access health information [...] Well woman exam Encounters Office Visit On: 15-Mar-2018 16:22 Encounter Reason: Follow up hospital - Reason for ER visit: heart attack. The patient feels well with minor complaints, has decreased energy level and is sleeping well. Patient has been compliant with instructions. Curre End: 17-Mar-2018 7:29 nt medication use: compliant with dosing regimen. Patient sleeps 6 hours per night. Impact of disease: emotional impact-mild. Nutrition: balanced diet and supplemental vitamins.Encounter Diagnosis: BMI 23.0-23.9, adult, Non-STEMI (non-ST elevated myocardial infarction), Current nonsmoker (Renamed from Current non-smoker), AAA (abdominal aortic aneurysm) [facility] Phone Encounter On: 10-Mar-2018 6:40 Encounter Diagnosis: Non-STEMI (non-ST elevated myocardial infarction), AAA (abdominal aortic aneurysm) End: 10-Mar-2018 6:49 [facility] Office Visit On: 08-Feb-2018 15:08 Encounter Reason: [...] for Tdap vaccination (Renamed from Need for muqffejqck-lcfakkx-kwevezvtg (Tdap) vaccine, adult/adolescent), Screening mammogram, encounter for, [...] acuity (2006 Dr. Sosa ). Encounter Diagnosis: [facility] Payers Medical [facility] RehabilitationSAMI CAMPUZ[facility]; candida guarantor
--- OUTSIDE RECORDS SUMMARY | 2018-05-04 10:01 | XMS RPT_ITS | Continuity of Care Document ---
:1955 Author Organization [facility] Address [facility] 2 [place] [address] Phone Care Team Providers Name Role Phone Horace RAYMOND, Nehal Castellanos Unavailable Wilfrid VILLATORO Emily Priscila Unavailable Dr. Shaneka Summers MD Unavailable TIMMY Briceño Unavailable Unavailable Nina Estrada Unavailable Unavailable Unavailable Unavailable Problems Name Dates Details AAA (abdominal aortic aneurysm) (I71.4, 441.4) Comments: found 11-27-18 2.[address] Smith Status: Active Abdominal pain, acute, left lower quadrant (Renamed [...] for Tdap vaccination (Renamed from Need for zgsjynfdjr-arcmjhm-nztixxbwa (Tdap) vaccine, adult/adolescent) (Z23, V06.1) Status: Active Non-STEMI (non-ST elevated myocardial infarction) (I21.4, 410.70) Comments: 03-08-18 [facility] had cardiac cath no evidence of sig. CAD follow Dr. Thrasher Status: Active Postmenopausal (Renamed from Postmenopausal status) [...] colonoscopy Dr. Yuen 02/22 hx poly due , needs tdap updated, needs colonoscopy this february, PHQ-9=4 (minimal) , 6CIT=doing better with anxiety. time and working on [employer] Shaneka Delacruz 1000 gifts. 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 will chek us and labs seen griceldainer in past Status: Inactive as of 18-Jun-2015 [...] Comments: postviod residual was better talk wtih marcelo yesterday and not think cause increase UTI. [...] Comments: HYSTEROSCOPY, WITH DILATION AND CURETTAGE Completed (49817) Comments: Dr. Summers Left knee Completed Comments: repair when 18 years old football knee Date Value Details 08-Mar-2018 Chest 1 View (Portable) Result: Comments: See Note; NOTES: [facility] Imaging Services [address] [address] Chest 1 View (Portable) MR#: [id number] Acct: [id number] Name: SAMI CAMPUZANO Rep #: [id number] : 1955 F 62 From: Orlin Trejo DO PCP: Nehal Vu MD Status: REG ER Study: Chest 1 View (Portable) Date of Exam: 03/08/18 Exam# [id number] Ordering Dr: Reggie Clark MD STUDY: X-RAY [...] Orlin Trejo DO at 19:09 EST Tel [phone] , Service support , CC: Nehal Vu MD; Reggie Clark MD Pattern Vault Clerk: Signed 22-Jun-2017 Dexa Bone Density Study (HP) Result: Comments: See Note; NOTES: [facility] Imaging Services [address] [place] [address] Dexa Bone Density Study (HP) MR#: [id number] Acct: [id number] Name: SAMI CAMPUZANO Rep #: [id number] : 1955 F 61 From: Ash Dennis MD PCP: Nehal Vu MD Status: REG CLI Study: Dexa Bone Density Study (HP) Date of Exam: 06/22/17 Exam# [id number] Ordering Dr: Nehal Vu MD ST UDY: [...] Ash Dennis MD at 13:01 EDT Tel [phone], Service support , CC: Nehal Vu MD Pattern Vault Clerk: Signed 22-Jun-2017 SCREENING MAMM (CAD), BILAT Result: Comments: See Note; NOTES: [facility] Imaging Services [address] [place] [address] SCREENING MAMM (CAD), BILAT MR#: [id number] Acct: [id number] Name: SAMI CAMPUZANO Rep #: [id number] : 1955 F 61 From: Ash Dennis MD PCP: Nehal Vu MD Status: REG CLI Study: SCREENING MAMM (CAD), BILAT Date of Exam: 06/22/17 Exam# [id number] Ordering Dr: Nehal Vu MD MAMM OGRAPHY [...] delay biopsy of a clinically suspicious abnormality. [id number] Electronically Signed: Ash Dennis MD at 10:59 EDT Tel [phone], Service support , CC: Nehal Vu MD Pattern Vault Clerk: Signed 26-May-2016 Thyroid Result: Comments: See Note; NOTES: [facility] Imaging Services [address] [place] [address] Verdana 4d Thyroid MR#: [id number] Acct: [id number] Name: SAMI CAMPUZANO Rep #: [id number] : 1955 F 60 From: Reece Hadley DO PCP: Nehal Vu MD Status: REG CLI Study: Thyroid Date of Exam: 05/26/16 Exam# [id number] Ordering Dr: Nehla Vu MD STUDY: THYROID ULTRASOUND REASON FOR [...] at 21:36 EST Tel , Service support [phone], CC: Nehal Vu MD Pattern Vault Clerk: Signed 23-May-2016 SCREENING MAMM (CAD), BILAT Result: Comments: See Note; NOTES: [facility] Imaging Services [address] [place] [address] Verdana 4d SCREENING MAMM (CAD), BILAT MR#: [id number] Acct: [id number] Name: SAMI CAMPUZANO ep #: [id number] : 1955 F 60 From: Ash Dennis MD PCP: Nehal Vu MD Status: [facility] CL Study: SCREENING MAMM (CAD), BILAT Date of Exam: 05/23/16 Exam# [id number] Ordering Dr: Rojelio Vu MD MAMMOGRAPHY - [...] delay biopsy of a clinically suspicious abnormality. [id number] Electronically Signed: Ash Dennis MD at 8: 08 EST Tel [phone], Service support [phone], CC: Nehal Vu MD Pattern Vault Clerk: Signed 11-Jun-2015 Thyroid Result: Comments: See Note; NOTES: [facility] Imaging Services [address] [place] [address] Verdana 4d Thyroid MR#: [id number] Acct: [id number] Name: SAMI CAMPUZANO Rep #: [id number] : 1955 F 59 From: Ash Dennis MD PCP: Nehal Vu MD Status: REG CLI Study: Thyroid Date of Exam: 06/11/15 Exam# [id number] Ordering Dr: Nehal Vu MD STUDY: THYROID [...] Dennis MD 06/10 at 15:52 EST Tel [phone], Service support [phone], CC: Nehal Vu MD Pattern Vault Clerk: Signed 11-Jan-2015 Operative Report Result: Comments: See Note; NOTES: [facility] Medical Records Department [address] [place] [address] Operative Report MR#: [id number] Acct: [id number] Name: SAMI CAMPUZANO Rep #: [id number] : 1955 59 From: Nayeli Summers MD PCP: Nehal Vu MD Status: [facility] DATE OF SERVICE: 01/08/2015 DATE OF SERVICE: [...] 1-2 weeks' time. Nayeli Summers MD T: [facility] JOB: [id number] 01/11/15 0949 <Electronically sign ed by Nayeli Summers MD> Date Nayeli Summers MD Cosigner Signature (If Indicated): Date CC: Nayeli Summers MD; Nehal Vu MD Date Dictated: 01/08/151540 Date Transcribed: 01/08/151540 Pattern Vault Clerk: Signed 08-Jan-2015 Discharge Instruction Result: Comments: See Note; NOTES: [facility] Medical Records Department [address] [place] [address] Instructions for Home/Discharge Instructions 01/08/151515 MR#: [id number] ct: [id number] Name: SAMI CAMPUZANO Rep #: [id number] : 1955 59 From: Nayeli Summers MD [...] Nayeli Summers When: 1-2 weeks in office 01/08/15 1517 <Electronically signed by Nayeli Summers MD> Date Nayeli Summers MD CC: Nehal Vu MD 08-Jan-2015 Operative Report Result: Comments: See Note; NOTES: [facility] Medical Records Department [address] [place] [address] Operative Report 01/08/15 1514 MR#: [id number] Acct: [id number] Name: SAMI CAMPUZANO Rep #: [id number] : 1955 59 From: Nayeli Summers MD PCP: Nehal Vu MD Status: REG SDC Y Location: [place] [address] Operative Report (Blank) Date of Procedure: 01/08/15 [...] (Non ) Result: Comments: See Note; NOTES: [facility] Imaging Services [address] [address] Ultrasound Report MR#: [id number] Acct: [id number] Name: SAMI CAMPUZANO Rep #: [id number] : 1955 F 59 From: Ash Dennis MD PCP: Nehal Vu MD Status: REG CLI Study: Pelvic (Non ) Date of Exam: 10/23/14 Exam# [id number] Ordering Dr: Nehal Vu MD ADDENDU M by Ash Dennis MD on 10/25/14 at 1556 ADDENDUM This is an addendum report. Prior exa mination of the pelvis was made available for comparison. Since prior study, the uterus has increased in size there are the previously seen fibroids have increased in size as well . Electronically Signed: Ash Dennis MD at 15:56 EDT Tel [phone], Service support [phone], 10/25/14 1556 Date cc: Nehal Vu MD [...] Dennis MD 5 at 13:27 EDT Tel [phone], Service support [phone], CC: Nehal Vu MD Pattern Vault Clerk: Signed 23-Oct-2014 Pelvic (Non ) Result: Comments: See Note; NOTES: [facility] Imaging Services [address] [place] [address] Ultrasound Report MR#: [id number] Acct: [id number] Name: SAMI CAMPUZANO Rep #: [id number] : 1955 F 59 From: Ash Dennis MD PCP: Nehal Vu MD Status: REG CLI Study: Pelvic (Non ) Date of Exam: 10/23/14 Exam# [id number] Ordering Dr: Nehal Vu MD STUDY: ULTRASOUND [...] Ash Dennis MD at 13:27 EDT Tel [phone], Service support [phone], CC: Nehal Vu MD Pattern Vault Clerk: Signed 23-Oct-2014 Thyroid Result: Comments: See Note; NOTES: [facility] Imaging Services [address] [place] [address] Ultrasound Report MR#: [id number] Acct: [id number] Name: SAMI CAMPUZANO Rep #: [id number] : 1955 F 59 From: Ash Dennis MD PCP: Nehal Vu MD Status: REG CLI Study: Thyroid Date of Exam: 10/23/14 Exam# [id number] Ordering Dr: Nehal Vu MD STUDY: THYROID [...] Ash Dennis MD at 14:04 EDT Tel [phone], Se rvice support [phone], CC: Nehal Vu MD Pattern Vault Clerk: Signed Immunization Name Dates Details Td (7 years and up) on: 26-Apr-2007 Comments: given in left deltoid, lot#[id number], exp.09.22.07--WF Family History Unknown Family Member Name [...] Grandfather Comments: Status: Active Paternal Grandmother Comments: [place] age 76 Status: Active Sister 1 Comments: borderline HTN Status: Active Sister 2 Comments: irregular heart beat (on medication) Status: Active Sister 3 Comments: healthy Status: Active Sister 4 Comments: healthy Status: Active Social History Name Dates Details Caffeine Use Comments: 1 cup green tea qd Status: Active Current Work/Study Status Comments: 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 [place], [place], [id number] GAP 6 (Normal) Range: 5-15 CO2 30.0 [...] Comments: Please note revised GLUCOSE reference range /02/2018. 45-Wzf-905649:15 CBC W/Diff, Automated Comments: [facility] [address] [place], [place], [id number] Absolute Lymph 1.97 {X10_3/ul} (Normal) Range: 0.83-4.51 [...] 4.2-5.4 WBC 5.5 K/mm3 (Normal) Range: 4.4-11.0 43-Lyg-042894:15 D-Dimer Quantitative (DVT/PE) Comments: [facility] [address] [place], [address] D-DIMER QUANT < 0.27 {FEU/ug/m} (Abnormal) Range: 0.27-0.49 Comments: NORMAL D-Dimer level (<0.50) indicates no DVT or PE. 80-Aaj-941704:15 Troponin-I Comments: [place] [address] [facility] [place], [address] TROPONIN-I 0.322 ng/mL (Abnormal) Comments: TROPONIN-I EXPECTED VALUES <0.045 Negative 0.045 - 0.590 Consistent with Cardiac Damage > OR = 0.600 Critical Value Not every elevated troponin is indicative of VA. T hesevalues should be used with clinical judgement in examiningthe patient's clinical picture for diagnosis. To establisha diagnosis of VA versus myocardial injury, there must be ademonstrated rise and/ or fall in the troponin values, inaddition to ischemic symptoms, EKG changes, new regionalwall motion abnormality, and/or angiographical evidence. PLEASE NOTE: REFERENCE RANGES EDITED 17:45 CBC W/Diff, Automated Comments: [facility] [address] [place], [place], [address] Absolute Lymph 0.66 {X10_3/ul} (Abnormal) Range: 0.83-4.51 [...] 8.5 K/mm3 (Normal) Range: 4.4-11.0 :45 Lipase (85289) Comments: [facility] [address] [place], [place], [address] LIPASE 77 U/L (Normal) Range: 73-393 :45 Amylase (44309) Comments: [facility] [address] [place], [place], [address] MICHELL 74 U/L (Normal) Range: 25-115 08-Mdg-02754:26 Urinalysis, Office (32248) UA - LEUKOCYTE ESTERASE Negative (Normal) UA - NITRITE Negative (Normal) URINE UROBILINGN CHUY TIMED 2 mg/dL (Normal) UA - PROTEIN Negative mg/dL (Normal) UA - PH 6.5 (Normal) UA - BLOOD Negative (Normal) UA - SPECIFIC GRAVITY 1.005 (Normal) UA - KETONES Negative mg/dL (Normal) UA - BILIRUBIN Negative (Normal) UA - GLUCOSE Negative (Normal) 06-Cpd-12770:58 METABOLIC PANEL, COMPREHENSIVE Comments: PATIENT WAS FASTINGPERFORMED BY: [facility]CoSaint [facility]abas Medical CenterIrxjau7720 [facility] [id number] (53112) ALT (SGPT) 15 [iU]/L (Normal) Range: 0-32 [...] 8-27 Glucose 86 mg/dL (Normal) Range: 65-99 90-Xkb-66514:56 LIPOPROTEIN, BLD, BY NMR Comments: PATIENT WAS FASTINGPERFORMED BY: [address] [id number] ([address]) LP-IR Score <25 (Normal) Comments: INSULIN RESISTANCE MARKER <--Insulin Sensitive Insulin Resistant--> Percentile in Reference PopulationInsulin Resistance ScoreLP-IR Score Low 25th 50th 75th High <27 27 45 63 >63LP-IR Score is inaccurate if patient is non-fasting. .The LP-IR score is a laboratory developed i [facility] that has beenassociated with insulin resistance and [...] were developed and their performance characteristicsdetermined by [facility]. These assays have not been cleared by [...] 1600 - 2000 Very High > 2000 66-Sva-845354:04 MICROALBUMIN: CREATININE RATIO Comments: PATIENT NOT FASTINGPERFORMED BY: [employer] [id number] (05918) AND (85012) Alb/Creat Ratio MALD2 {mg/g_creat} Range: 0.0-30.0 (Abnormal) Comments: The result is below the assay's limit of quantitation which mayindicate a dilute specimen or other clinical condition. Considerrecollection at a time likely to provide a urine that is moreco ncentrated. Albumin, Urine <3.0 ug/mL (Normal) Creatinine, Urine 8.3 mg/dL (Normal) 38-Rly-649067:04 Metabolic Panel, Comprehensive Comments: PATIENT NOT FASTINGPERFORMED BY: [employer] [facility] [id number] (45670) ALT (SGPT) 19 [iU]/L (Normal) Range: 0-32 [...] Glucose, Serum 88 mg/dL (Normal) Range: 65-99 70-Are-697005:04 CBC WITH MANUAL DIFF Comments: PATIENT NOT FASTINGPERFORMED BY: [facility]CoSaint Barnab[facility] CenterKxipsf0175 [facility] [id number] Information: NURSE DRAW (74262) Immature Grans (Abs) 0.0 {x10E3/uL} (Normal) Range: [...] 3.77-5.28 WBC 3.2 {x10E3/uL} (Abnormal) Range: 3.4-10.8 39-Ujc-502811:04 URINALYSIS (16285) Comments: PATIENT NOT FASTINGPERFORMED BY: [facility]CoSaint [facility] CenterXwdsmm6445 [facility] [id number] Microscopic Examination MICNIP (Normal) Comments: Microscopic not indicated and not performed. Nitrite, Urine Negative (Normal) Urobilinogen,Semi-Qn 0.2 mg/dL (Normal) Range: 0.2-1.0 Bilirubin Negative (Normal) Occult Blood Negative (Normal) Ketones Negative (Normal) Glucose Negative (Normal) Protein Negative (Normal) WBC Esterase Negative (Normal) Appearance Clear (Normal) Urine-Color Yellow (Normal) pH 6.5 (Normal) Range: 5.0-7.5 Specific [place] 1.008 (Normal) Range: 1.005-1.030 32-Vuu-90450:47 IGP, Aptima HPV, Comments: Source.............Cervix;EndocervixNo. of containers..01 CYTYC Thin Prep VialPATIENT NOT FASTINGPERFORMED BY: =G [facility] Grngbvcjkh815 [facility] W [id number] BY: WB [facility] rfx 16/18,[address] [id number] HPV Aptima Negative (Normal) Comments: This test [...] MALIGNANCY.Satisfactory for evaluation. No endocervical component is identified.Z01.419Elioda Josh Rosa, Urban Design Consultant (ASC) 54-Btg-04631:47 Thin prep Pap Comments: Source.............Cervix;EndocervixNo. of containers..01 CYTYC Thin Prep VialPATIENT NOT FASTINGPERFORMED BY: =G [facility] [address] [id number] BY: WB [employer] (89512) (no STD rp Qerwrtksgp720 [facility] [id number] Information: [id number] testing) Age Gdln ACOG Testing 30-65 (Normal) 20-Dwm-17380:32 CALCIFIDIOL (60758) VIT D 25 Comments: PATIENT WAS FASTINGPERFORMED BY: CB [facility] Nsbugs7175 [facility] [id number] Vitamin D, 25-Hydroxy 38.1 ng/mL (Normal) Range: 30.0-100.0 Comments: Vitamin D deficiency has been defined by the [place] of[place]icine and an Endocrine Society practice guideline as alevel of serum 25-OH vitamin D less than 20 ng/mL (1,2).The Endocrine Society went on to further define vitamin Dinsufficiency as a level between 21 and 29 ng/mL (2).1. IOM ([place] of [place]). 2010. Dietary reference intakes for calcium and D. [place]: The National Academies Press.2. De MF, Agustin PEREIRA, Andree CHAO et al. Evaluation, treatment, and prevention of vitamin D deficiency: an Endocrine Society clinical practice guideline. JCEM. 2010; 96(7):1911-30. :32 HGB A1C (40583) Comments: PATIENT WAS FASTINGPERFORMED BY: [place] [address] [facility] [id number]; fu 5-30 db Hemoglobin A1c 5.9 % (Abnormal) Range: 4.8-5.6 Comments: . Pre-diabetes: 5.7 - 6.4 Diabetes: >6.4 Glycemic control for adults with diabetes: <7.0 :05 URINE CHARLY CULTURE-IDENTIFICATN Comments: PATIENT NOT FASTINGPERFORMED BY: [address] [id number] Information: [id number] (11137) Result 1 MUG (Normal) Comments: Mixed urogenital flora1,000 Colonies/mL Urine Culture,Comprehensive Final report (Normal) 07-Rww-96217:29 Urinalysis, Office (25995) UA - LEUKOCYTE ESTERASE Negative (Normal) UA - NITRITE Negative (Normal) URINE UROBILINGN CHUY TIMED Normal mg/dL (Normal) UA - PROTEIN Negative mg/dL (Normal) UA - PH 6 (Abnormal) UA - BLOOD Non Hemolyzed Trace (Normal) UA - SPECIFIC GRAVITY 1.015 (Normal) UA - KETONES Negative mg/dL (Normal) UA - BILIRUBIN Negative (Normal) UA - GLUCOSE Negative (Normal) 95-Tbv-179113:59 URINE CHARLY CULTURE-CHUY COL Comments: PATIENT NOT FASTINGPERFORMED BY: [place] [address] [facility] [id number] Information: SRC:[facility] F18471 COUNT (25906) Result 1 ECV (Abnormal) Comments: Escherichia coli, [...] S Urine Final report Culture,Comprehensi (Abnormal) ve 21-Wyg-624198:23 Urinalysis, Office (01116) UA - LEUKOCYTE ESTERASE Trace (Normal) UA - NITRITE Negative (Normal) URINE UROBILINGN CHUY Normal mg/dL TIMED (Normal) UA - PROTEIN Negative mg/dL (Normal) UA - PH 7 (Normal) UA - BLOOD Negative (Normal) UA - SPECIFIC GRAVITY 1.010 (Normal) UA - KETONES Negative mg/dL (Normal) UA - BILIRUBIN Negative (Normal) UA - GLUCOSE Negative (Normal) ENDOMETRIAL See Note (Normal) Comments: [facility] [address] [place], [address] :02 BX/CURETTINGS Comments: Patient: SAMI CAMPUZANO : 1955 (59/F) Acct Num: [id number] Phys: Marcelo RAYMOND,Nayeli Unit Num: [id number] Loc: [facility] Specimen: [id number] Received: 01/09/15 - 1020 Spec Type: ENDOM [...] one cassette. / AM: 01/09/15 TC:5 CPT: 94467 HEADER OPERATION: Hysteroscopy, diagnostic D AND C PRE-OP DIAGNOSIS: Leiomyoma of uterus, postmenopausal bleeding TISSUE SUBMITTED: Endometrial curettings MICROSCOPIC DESCRIPTION Slides are reviewed. MICROSCOPIC DIAGNOSIS Endometrial curettings: Weakly proliferative endometrium with cystic atrophic ibarra es. SJ: 01/10/15 Signed Billy Padron 01/10/15 <signature on file> 64-Mqv-976448:30 ,Urine Comments: Test performed at:[facility] [address] [place] [address] HCGUQUAL Negative {Negative} (Normal) Comments: Very dilute urine specimens, as indicated by a low specificgravity, may not contain printing supplies sales representative levels of hCG.If is still suspected, a first morning urinespecimen should be collected 48 hours later and tested. :08 CBC With Differential/Platelet Comments: PATIENT WAS FASTINGPERFORMED BY: [facility] Dwcjra0390 [facility] [id number] Information: [id number],[id number] Immature Grans (Abs) 0.0 {x10E3/uL} (Normal) Range: [...] 3.77-5.28 WBC 4.5 {x10E3/uL} (Normal) Range: 3.4-10.8 :08 Comp. Metabolic Panel (14) Comments: PATIENT WAS FASTINGPERFORMED BY: [facility] Vxsehq6350 [facility] [id number] ALT (SGPT) 18 [iU]/L (Normal) Range: 0-32 [...] 204.3 pg/mL Comments: PATIENT WAS FASTINGPERFORMED BY: [facility] Ogkthj9339 [facility] [id number] 8 (Normal) Comments: Adult Female: Follicular phase 12.5 - 166.0 Ovulation phase 85.8 - 498.0 Luteal phase 43.8 - 211.0 Postmenopausal <6.0 - 54.7 1st trimester 215.0 - & gt;4300.0 Girls (1-10 years) 6.0 - 27.0Roche ECLIA methodology :08 FSH and LH Comments: PATIENT WAS FASTINGPERFORMED BY: MyoKardiaGallup Indian Medical CenterCjnvoo3941 [facility] [id number] FSH 43.8 m[iU]/mL (Normal) Comments: Follicular phase 3.5 - 12.5 Ovulation phase 4.7 - 21.5 Luteal phase 1.7 - 7.7 Postmenopausal 25.8 - 134.8 LH 47.0 m[iU]/mL (Normal) Comments: Follicular phase 2.4 - 12.6 Ovulation phase 14.0 - 95.6 Luteal phase 1.0 - 11.4 Postmenopausal 7.7 - 58.5 :08 Lipid Panel With LDL/HDL Comments: PATIENT WAS FASTINGPERFORMED BY: MyoKardia [employer] [facility] [id number] Ratio LDL/HDL Ratio 1.9 {ratio_units} (Normal) Range: [...] Microscopic Examination Comments: PATIENT WAS FASTINGPERFORMED BY: MyoKardiaSaint Barnabas Medical CenterZbafce6074 [facility] [id number] Bacteria Few (Normal) Mucus Threads Present (Normal) Epithelial Cells (non >10 {/hpf} Range: 0 - 10 renal) (Abnormal) RBC 0-2 {/hpf} (Normal) Range: 0 - 2 WBC 0-5 {/hpf} (Normal) Range: 0 - 5 : Prolactin 26.7 ng/mL Comments: PATIENT WAS FASTINGPERFORMED BY: [place] [id number] [facility] [id number] (Abnormal) Range: 4.8-23.3 :08 Thyroxine (T4) Free, Direct, S Comments: PATIENT WAS FASTINGPERFORMED BY: [place] [address] [facility] [id number] T4,Free(Direct) 1.02 ng/dL Range: 0.82-1.77 (Normal) Triiodothyronine,Free,Seru 3.5 pg/mL (Normal) Comments: PATIENT WAS FASTINGPERFORMED BY: [facility]6370 [facility] [id number] :08 m Range: 2.0-4.4 TSH 3.990 {uIU/mL} Comments: PATIENT WAS FASTINGPERFORMED BY: [facility]6370 [facility] [id number] :08 (Normal) Range: 0.450-4.500 :08 Urinalysis, Complete Comments: PATIENT WAS FASTINGPERFORMED BY: [facility]6370 [facility] [id number] Microscopic Examination See below: (Normal) Comments: Microscopic was indicated and was performed. Microscopic Examination MICRON (Normal) Comments: Microscopic follows if indicated. Nitrite, Urine Negative (Normal) Urobilinogen,Semi-Qn 0.2 mg/dL (Normal) Range: 0.0-1.9 Bilirubin Negative (Normal) Occult Blood Negative (Normal) Ketones Negative (Normal) Glucose Negative (Normal) Protein Negative (Normal) WBC Esterase Negative (Normal) Appearance Clear (Normal) Urine-Color Yellow (Normal) pH 6.0 (Normal) Range: 5.0-7.5 Specific [place] 1.025 (Normal) Range: 1.005-1.030 :52 IGP, Aptima HPV, Comments: Source.............Cervical;EndocervicalNo. of containers..01 CYTYC Thin Prep VialPATIENT NOT FASTINGPERFORMED BY: =G [facility] [address] [id number] BY: WB L rfx 16/18,[address] [id number] HPV Aptima Negative (Normal) Comments: This test [...] are present.V72.31 ; Routine gynecological examinationMarisol Nava Urban Design Consultant (ASCP) 4-Mfa-712873:52 IGP,Aptima Comments: Source.............Cervical;EndocervicalNo. of containers..01 CYTYC Thin Prep VialPATIENT NOT FASTINGPERFORMED BY: =G [facility] [address] [id number] BY: WB L HPV,CtNg Age Gdln [address] [id number] Information: [id number] Age Gdln ACOG Testing 30-65 (Normal) 19-Dec-20107:18 Urinalysis, Office (74444) UA - LEUKOCYTE ESTERASE Small (Normal) UA - NITRITE Negative (Normal) URINE UROBILINGN CHUY TIMED Normal mg/dL (Normal) UA - PH 7.0 (Normal) UA - BLOOD Non Hemolyzed Trace (Normal) UA - SPECIFIC GRAVITY 1.010 (Normal) UA - KETONES Negative mg/dL (Normal) UA - BILIRUBIN Negative (Normal) UA - GLUCOSE Negative (Normal) 64-Khs-123677:35 PELVIC (NON ) Radiology Report See Note [...] VANCOMYCIN $ <=0.5 S :05 Urinalysis, Office (78533) UA - BILIRUBIN Negative (Normal) UA - BLOOD Hemolyzed Small (Normal) UA - GLUCOSE Negative (Normal) UA - KETONES Negative mg/dL (Normal) UA - LEUKOCYTE ESTERASE Negative (Normal) UA - NITRITE Negative (Normal) UA - PH 6.0 (Normal) UA - PROTEIN Negative mg/dL (Normal) UA - SPECIFIC GRAVITY 1.015 (Normal) URINE UROBILINGN CHUY TIMED 2 mg/dL (Normal) 77-Nke-54365:46 Thin prep Pap Comments: Source.............Cervical;EndocervicalLMP / Prev Treat...ZLV=[id number]. of containers..01 CYTYC Thin Prep VialPATIENT NOT FASTINGPERFORMED BY: KX [facility] [place] Rorp[address] [facility] [id number] [place] [id number] ([id number]) . . (Normal) DIAGNOSIS: SPRCS (Normal) Comments: NEGATIVE FOR INTRAEPITHELIAL LESION AND MALIGNANCY.FUNGAL ORGANISMS MORPHOLOGICALLY CONSISTENT WITH MAURY SPECIES AREPRESENT.THIS SPECIMEN WAS RESCREENED PART OF OUR PERIPHERAL VASCULAR TECH [facility]. Endocervical and/or squamous metaplasticcells (endocervical component) are present.V72.31 ; Routine gynecological examinationPetra Griggs, Urban Design Consultant (ASCP)Samia Parmar, Supervisory Urban Design Consultant (ASCP) Note: PAPSMR (Normal) Comments: The Pap [...] resulttherefore, no HPV testing was performed. . 09-Exx-931359:46 [facility]AG DIGITAL & CAD Radiology Report See Note (Normal) Comments: Exam Number: [id number] BILATERAL DIAGNOSTIC DIGITAL MAMMOGRAM CLINICAL INFORMATIONAbnormal mammogram. [...] mammograms werealso examined with computer-aided detection software ([employer]). Reported By: DAYNA RUSSELL M.D. :02 [facility] DIGITAL & CAD Radiology Report See Note (Normal) Comments: Exam Number: [id number] BILATERAL SCREENING DIGITAL MAMMOGRAM CLINICAL INFORMATIONScreening. Bilateral digital mammography was performed as a screening exam. Standard CC and MLO views were ob tained. Ther e was a delay in issuing the report [facility] [place] [facility]. That study was on[facility]. [...] The mammogramswere also examined with computer-aided detection software([employer].). Reported By: DAYNA RUSSELL M.D. :1 GLU 81 mg/dL (Normal) Range: 70-110 9 78-Rdw-26402:19 LIPID CHOL 155 mg/dL (Normal) Comments: <200 [...] Planned Observations CBC, Platelets & Auto Diff ([id number])Indication: Abdominal pain, acute, left lower quadrant (Renamed from Acute abdominal pain in left lower quadrant) On: 50-Jtl-92573:26 Request HGB A1C (96344)Indication: Abnormal fasting glucose On: 32-Mcf-444480:54 Request T3, FREE (TRIDOTHYRONINE) (98970)Indication: Thyroid nodule On: :26 Request T4, FREE (THYROXINE) (68370)Indication: Thyroid nodule On: 0-Maf-925099:26 Request TSH (57654)Indication: Thyroid nodule On: 2-Kxx-363894:25 Request FSH AND LH (97635)Indication: Abnormal vaginal bleeding On: :24 Request ESTRADIOL (72623)Indication: Abnormal vaginal bleeding On: : Request PROLACTIN (64482)Indication: Abnormal vaginal bleeding On: : Request T3, FREE (TRIDOTHYRONINE) (72550)Indication: Goiter On: : Request T4, FREE (THYROXINE) (97609)Indication: Goiter On: :17 Request TSH ([id number])Indication: Goiter On: :17 Request Thin Prep Pap (24797)Indication: Well woman exam On: : Request URINALYSIS, W/ MICRO (52152)Indication: Well woman exam On: :15 Request METABOLIC PANEL, COMPREHENSIVE (98500)Indication: Well woman exam On: :15 Request CBC with auto diff (79682)Indication: Well woman exam On: :15 Request LIPID PANEL (68104)Indication: Well woman exam On: :15 Request URINE CHARLY CULTURE-CHUY COL COUNT (19713)Indication: Acute cystitis without hematuria On: :37 Request URINE CHARLY CULTURE-CHUY COL COUNT (91933)Indication: Urinary retention On: 12-Cop-60097:05 Request Glucose (06922)Indication: WWV On: :46 Request Lipid Panel (17874)Indication: WWV On: 61-Yap-521962:46 Request Planned Encounters Medical; [facility] Exam (DB Nurse) - db pt pt wanted a wed On: 25-May-2018 8:45 [facility] NURSE, DF Medical; [facility] Exam (Doctor) - On: 08-Jun-2018 8:00 [facility] Horace RAYMOND, Nehal Vu MD, Nehal Castellanos Planned Procedures DEXA SCAN AXIAL SKELETON ([id number])By: On: 25-May-2017 Intent Nehal Vu MD, MD, Dana M SCREENING DIGITAL TOMOSYNTHESIS OF On: 25-May-2017 Intent BREAST (74130)By: Nehal Vu MD, MD, Dana M TDAP VACCINE >7 IM (70696)By: On: 25-May-2017 Intent Nehal Vu MD, MD, Dana Comments: lot:[id number]:03-26-19rte:IM dose:0.5mlgiven by:UGRU Briones Ultrasound - ThyroidBy: Horace RAYMOND, On: 05-May-2016 Intent Nehal Collins MD Comments: recheck 3-17 MAMMOGRAM BREAST BILATERAL SCREENING On: 05-May-2016 Intent DIGITAL (88309)By: Nehal Vu MD, MD, Dana M Ultrasound [...] MAMMOGRAM, SCREENING, BOTH BREAST On: 21-Jun-2014 Intent ([id number])By: Nehal Vu MD, MD, Dana M Aerosol Treatment (46849)By: Alyse On: 19-Apr-2012 Intent CRYSTAL GAZER, Jacquelin Wax CurettesBy: Alyse CRYSTAL GAZER, Jacquelin On: 19-Apr-2012 Intent Ear Irrigation (45768)By: Alyse On: 19-Apr-2012 Intent Belia HERNANDEZ -Medrol Injection, 125 mg On: 10-Sep-2011 Intent (J2930)By: Nehal Vu MD Comments: Lot #[id number]-R hip, IMDose 125mggiven by:Nehal Bowie MD Rocephin Injection, 2 Gram On: 24-Oct-2010 Intent (J0696)By: Benita Carrion DO Comments: Lot #[id number]-R and L hipsDose 2 grams/4ml split into 2 dosesgiven by:KARRIE Ultrasound - PelvisBy: Murali VILLATORO, On: 24-Oct-2010 Intent Benita THER/PROPH/DIAG INJ, SC/IM On: 24-Oct-2010 Intent ([id number])By: Benita Carrion DO MAMMOGRAM, SCREENING, BOTH BREASTS On: 26-Apr-2007 Intent (59442)By: Nehal Vu MD, MD, Dana M TD Injection , IM (51417)By: On: 26-Apr-2007 Intent Nehal Vu MD, MD, Dana Comments: given in left deltoid, lot#[id number], exp.6.--BHAVNA M Planned Medications INJECTION, CEFTRIAXONE SODIUM, PER [...] Patient Instructions Indication: Well woman exam Encounters Phone Encounter On: 10-Mar-2018 6:40 Encounter Diagnosis: [...] for Tdap vaccination (Renamed from Need for rwdkmwpxlt-xwxungb-bkhzifupd (Tdap) vaccine, adult/adolescent), Screening mammogram, encounter for, [...] acuity (2006 Dr. Sosa ). Encounter Diagnosis: 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
--- OUTSIDE RECORDS SUMMARY | 2018-05-04 10:01 | XMS RPT_ITS | Continuity of Care Document ---
:1955 Author Organization [facility] Address [facility]7 [facility] 2 [place] [address] Phone Care Team Providers Name Role Phone Horace RAYMOND, Nehal Castellanos Unavailable Emily Yuen DO Unavailable Dr. Shaneka Summers MD Unavailable Nina Estrada Unavailable Unavailable TIMMY Briceño Unavailable Unavailable Unavailable Unavailable Problems Name Dates Details AAA (abdominal aortic aneurysm) (I71.4, 441.4) Comments: found 11-27-18 2.[address] Smith Status: Active Abnormal fasting glucose (R73.01, 790.29) [...] for Tdap vaccination (Renamed from Need for cgqzsffvke-bytdiod-okwmhlbin (Tdap) vaccine, adult/adolescent) (Z23, V06.1) Status: Active Non-STEMI (non-ST elevated myocardial infarction) (I21.4, 410.70) Comments: 03-08-18 [facility] had cardiac cath no evidence of sig. [...] needs colonoscopy this february, PHQ-9=4 (minimal) , 6CIT=/28doing better with anxiety. time and working on [employer] Ricki Hendrickson and Shaneka Delacruz 1000 gifts. [...] Quantity: 20 {Tablet} Refills: 0 Ordered:12-Aug-2015 Long Josselyn GARVEY L Start : 23-Jul-2015 End : 12-Aug-2015 [...] Quantity: 30 {Capsule} Refills: 0 Ordered:30-Aug-2012 Monroe GARVEYNataliia Start : 19-Apr-2012 End : 30-Aug-2012 Inactive [...] Comments: HYSTEROSCOPY, WITH DILATION AND CURETTAGE Completed (54617) Comments: Dr. Summers Left knee Completed Comments: repair when 18 years old football knee Date Value Details 08-Mar-2018 Chest 1 View (Portable) Result: Comments: See Note; NOTES: [facility] Imaging Services [address] [place] [address] Chest 1 View (Portable) MR#: [id number] Acct: [id number] Name: SAMI CAMPUZANO Rep #: [id number] : 1955 F 62 From: Orlin Trejo DO PCP: Nehal Vu MD Status: REG ER Study: Chest 1 View (Portable) Date of Exam: 03/08/18 Exam# [id number] Ordering Dr: Reggie Clark MD STUDY: X-RAY [...] Orlin Trejo DO at 19:09 EST Tel [phone] , Service support , CC: Nehal Vu MD; Reggie Clark MD Riding Coach: Signed 22-Jun-2017 Dexa Bone Density Study (HP) Result: Comments: See Note; NOTES: [facility] Imaging Services [address] [place] [address] Dexa Bone Density Study (HP) MR#: [id number] Acct: [id number] Name: SAMI CAMPUZANO Rep #: [id number] : 1955 F 61 From: Ash Dennis MD PCP: Nehal Vu MD Status: REG CLI Study: Dexa Bone Density Study (HP) Date of Exam: 06/22/17 Exam# [id number] Ordering Dr: [facility]hal [facility]UAL ENERGY X-RAY ABSORPTIOMETRY / DXA REASON [...] Ash Dennis MD at 13:01 EDT Tel [phone], Service support , CC: Nehal Vu MD Riding Coach: Signed 22-Jun-2017 SCREENING MAMM (CAD), BILAT Result: Comments: See Note; NOTES: [facility] Imaging Services [address] [place] [address] SCREENING MAMM (CAD), BILAT MR#: [id number] Acct: [id number] Name: SAMI CAMPUZANO Rep #: [id number] : 1955 F 61 From: Ash Dennis MD PCP: Nehal Vu MD Status: REG CLI Study: SCREENING MAMM (CAD), BILAT Date of Exam: 06/22/17 Exam# [id number] Ordering Dr: Nehal Vu MD MAMM OGRAPHY [...] delay biopsy of a clinically suspicious abnormality. [id number] Electronically Signed: Ash Dennis MD at 10:59 EDT Tel [phone], Service support , CC: Nehal Vu MD Riding Coach: Signed 26-May-2016 Thyroid Result: Comments: See Note; NOTES: [facility] Imaging Services [address] [place] [address] Verdana 4d Thyroid MR#: [id number] Acct: [id number] Name: SAMI CAMPUZANO Rep #: [id number] : 1955 F 60 From: Reece Hadley DO PCP: Nehal Vu MD Status: REG CLI Study: Thyroid Date of Exam: 05/26/16 Exam# [id number] Ordering Dr: Nehal Vu MD STUDY: THYROID [...] at 21:36 EST Tel , Service support [phone], CC: Nehal Vu MD Riding Coach: Signed 23-May-2016 SCREENING MAMM (CAD), BILAT Result: Comments: See Note; NOTES: [facility] Imaging Services [address] [place] [address] Verdana 4d SCREENING MAMM (CAD), BILAT MR#: [id number] Acct: [id number] Name: SAMI CAMPUZANO #: [id number] : 1955 F 60 From: Ash Dennis MD PCP: Nehal Vu MD Status: REG CLI Study: SCREENING MAMM (CAD), BILAT Date of Exam: 05/23/16 Exam# [id number] Ordering Dr: Rojelio Vu MD MAMMOGRAPHY - [...] delay biopsy of a clinically suspicious abnormality. [id number] Electronically Signed: Ash Dennis MD at 8: 08 EST Tel [phone], Service support [phone], CC: Nehal Vu MD Riding Coach: Signed 11-Jun-2015 Thyroid Result: Comments: See Note; NOTES: [facility] Imaging Services [address] [place], [place] [address], [place] [address] Verdana 4d Thyroid MR#: [id number] Acct: [id number] Name: SAMI CAMPUZANO Rep #: [id number] : 1955 F 59 From: Ash Dennis MD PCP: Nehal Vu MD Status: REG CLI Study: Thyroid Date of Exam: 06/11/15 Exam# [id number] Ordering Dr: Nehal Vu MD STUDY: THYROID [...] Dennis MD 06/10 at 15:52 EST Tel [phone], Service support [phone], CC: Nehal Vu MD Riding Coach: Signed 11-Jan-2015 Operative Report Result: Comments: See Note; NOTES: [facility] Medical Records Department [address] [place] [address] Operative Report MR#: [id number] Acct: [id number] Name: SAMI CAMPUZANO Rep #: [id number] : 1955 59 From: Nayeli Summers MD PCP: Nehal Vu MD Status: [facility] DATE OF SERVICE: 01/08/2015 DATE OF [...] time. Nayeli Summers MD T: NTS JOB: [id number] 01/11/15 0949 <Electronically sign ed by Nayeli Summers MD> Date Nayeli Summers MD Cosigner Signature (If Indicated): Date CC: Nayeli Summers MD; Nehal Vu MD Date Dictated: 01/08/151540 Date Transcribed: 01/08/151540 Riding Coach: Signed 08-Jan-2015 Discharge Instruction Result: Comments: See Note; NOTES: [facility] Medical Records Department [address] [place] [address] Instructions for Home/Discharge Instructions 01/08/151515 MR#: [id number] ct: [id number] Name: SAMI CAMPUZANO Rep #: [id number] : 1955 59 From: Nayeli Summers MD PCP: Nehal Vu MD Status: REG [facility] Discharge Diet: No Restrictions [...] Operative Report Result: Comments: See Note; NOTES: [facility] Medical Records Department [address] [place] [address] Operative Report 01/08/15 1514 MR#: [id number] Acct: [id number] Name: SAMI CAMPUZANO Rep #: [id number] : 1955 59 From: Nayeli Summers MD PCP: Nehal Vu MD Status: REG SDC Y Location: [place] [address] Operative Report (Blank) Date of Procedure: 01/08/15 Preop: Uterin e leiomyoma and postmenopausal bleeding Postop: Same + thickened endometrium Procedure: D and C, hysteroscopy Surgeon: Marcelo EBL: minimal Fluids: Lactated ringers Meds: 1% Lidocaine local to the cervix Anesthesia: MAC Urine: 50cc 01/08/156 <Electronically signed by Nayeli Summers MD> Date Nayeli Summers MD CC: Nayeli Summers MD; Nehal Vu MD Signed 23-Oct-2014 Pelvic (Non ) Result: Comments: See Note; NOTES: [facility] Imaging Services [address] [place] [address] Ultrasound Report MR#: [id number] Acct: [id number] Name: SAMI CAMPUZANO Rep #: [id number] : 1955 F 59 From: Ash Dennis MD PCP: Nehal Vu MD Status: REG CLI Study: Pelvic (Non ) Date of Exam: 10/23/14 Exam# [id number] Ordering Dr: Nehal Vu MD STUDY: ULTRASOUND [...] Ash Dennis MD at 13:27 EDT Tel [phone], Service support [phone], CC: Nehal Vu MD Riding Coach: Signed 23-Oct-2014 Pelvic (Non ) Result: Comments: See Note; NOTES: [facility] Imaging Services [address] [place] [address] Ultrasound Report MR#: [id number] Acct: [id number] Name: SAMI CAMPUZANO Rep #: [id number] : 1955 F 59 From: Ash Dennis MD PCP: Nehal Vu MD Status: REG CLI Study: Pelvic (Non ) Date of Exam: 10/23/14 Exam# [id number] Ordering Dr: Nehal Vu MD ADDENDU M by Ash Dennis MD on 10/25/14 at 1556 ADDENDUM This is an addendum report. Prior exa mination of the pelvis was made available for comparison. Since prior study, the uterus has increased in size there are the previously seen fibroids have increased in size as well . Electronically Signed: Ash Dennis MD at 15:56 EDT Tel [phone], Service support [phone], 10/25/14 1556 Date cc: Nehal Vu MD [...] Dennis MD 5 at 13:27 EDT Tel [phone], Service support [phone], CC: Nehal Vu MD Riding Coach: Signed 23-Oct-2014 Thyroid Result: Comments: See Note; NOTES: [facility] Imaging Services [address] [place] [address] Ultrasound Report MR#: [id number] Acct: [id number] Name: SAMI CAMPUZANO Rep #: [id number] : 1955 F 59 From: Ash Dennis MD PCP: Nehal Vu MD Status: REG CLI Study: Thyroid Date of Exam: 10/23/14 Exam# [id number] Ordering Dr: Nehal Vu MD STUDY: THYROID [...] Ash Dennis MD at 14:04 EDT Tel [phone], Se rvice support [phone], CC: Nehal Vu MD Riding Coach: Signed Immunization Name Dates Details Td (7 years and up) on: 26-Apr-2007 Comments: given in left deltoid, lot#[id number], exp.09.22.07--WF Family History Unknown Family Member Name [...] Grandfather Comments: Status: Active Paternal Grandmother Comments: [place] age 76 Status: Active Sister 1 Comments: borderline HTN Status: Active Sister 2 Comments: irregular heart beat (on medication) Status: Active Sister 3 Comments: healthy Status: Active Sister 4 Comments: healthy Status: Active Social History Name Dates Details Caffeine Use Comments: 1 cup green tea qd Status: Active Current Work/Study Status Comments: 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 48-Bjp-827812:15 CBC W/Diff, Automated Comments: [facility] [address] [place], [place], [phone] Absolute Lymph 1.97 {X10_3/ul} (Normal) Range: 0.83-4.51 [...] 4.2-5.4 WBC 5.5 K/mm3 (Normal) Range: 4.4-11.0 36-Iqr-233530:15 D-Dimer Quantitative (DVT/PE) Comments: [facility] [address] [place], [place], [id number] D-DIMER QUANT < 0.27 {FEU/ug/m} (Abnormal) Range: 0.27-0.49 Comments: NORMAL D-Dimer level (<0.50) indicates no DVT or PE. :15 Troponin-I Comments: [facility] [address] [place], [place], [phone] TROPONIN-I 0.322 ng/mL (Abnormal) Comments: TROPONIN-I EXPECTED VALUES <0.045 Negative 0.045 - 0.590 Consistent with Cardiac Damage > OR = 0.600 Critical Value Not every elevated troponin is indicative of FL. T hesevalues should be used with clinical judgement in examiningthe patient's clinical picture for diagnosis. To establisha diagnosis of FL versus myocardial injury, there must be ademonstrated rise and/ or fall in the troponin values, inaddition to ischemic symptoms, EKG changes, new regionalwall motion abnormality, and/or angiographical evidence. PLEASE NOTE: REFERENCE RANGES EDITED 17:45 CBC W/Diff, Automated Comments: [facility] [address] [place], [place], [address] Absolute Lymph 0.66 {X10_3/ul} (Abnormal) Range: 0.83-4.51 [...] 8.5 K/mm3 (Normal) Range: 4.4-11.0 :45 Lipase (11201) Comments: [facility] [address] [facility]. [place], [place], [phone](856) LIPASE 77 U/L (Normal) Range: 73-393 :45 Amylase (61037) Comments: [facility] [address] [facility]. [place], [place], [phone](551) MICHELL 74 U/L (Normal) Range: 25-115 41-Dlo-51613:26 Urinalysis, Office (43368) UA - LEUKOCYTE ESTERASE Negative (Normal) UA [...] PANEL, COMPREHENSIVE Comments: PATIENT WAS FASTINGPERFORMED BY: [facility]villeEcenur1040 [facility] [id number] (97117) ALT (SGPT) 15 [iU]/L (Normal) Range: 0-32 [...] 8-27 Glucose 86 mg/dL (Normal) Range: 65-99 93-Npz-42650:56 LIPOPROTEIN, BLD, BY NMR Comments: PATIENT WAS FASTINGPERFORMED BY: [facility] [id number] (61980) LP-IR Score <25 (Normal) Comments: INSULIN RESISTANCE MARKER <--Insulin Sensitive Insulin Resistant--> Percentile in Reference PopulationInsulin Resistance ScoreLP-IR Score Low 25th 50th 75th High <27 27 45 63 >63LP-IR Score is inaccurate if patient is non-fasting. .The LP-IR score is a laboratory developed i [facility] that has beenassociated with insulin [...] were developed and their performance characteristicsdetermined by [employer]. These assays have not been cleared by [...] 1600 - 2000 Very High > 2000 09-Ibb-652873:04 MICROALBUMIN: CREATININE RATIO Comments: PATIENT NOT FASTINGPERFORMED BY: [facility] BellevilleTrrope7761 [facility] [id number] (05607) AND (30818) Alb/Creat Ratio MALD2 {mg/g_creat} Range: 0.0-30.0 (Abnormal) Comments: The result is below the assay's limit of quantitation which mayindicate a dilute specimen or other clinical condition. Considerrecollection at a time likely to provide a urine that is moreco ncentrated. Albumin, Urine <3.0 ug/mL (Normal) Creatinine, Urine 8.3 mg/dL (Normal) 11-Wyu-684967:04 Metabolic Panel, Comprehensive Comments: PATIENT NOT FASTINGPERFORMED BY: [facility] Uhqsje3390 [facility] [id number] (53990) ALT (SGPT) 19 [iU]/L (Normal) Range: 0-32 [...] Glucose, Serum 88 mg/dL (Normal) Range: 65-99 74-Uiq-178390:04 CBC WITH MANUAL DIFF Comments: PATIENT NOT FASTINGPERFORMED BY: [facility]panionMemorial Medical CenterFlkahy8669 [facility] [id number] Information: NURSE DRAW (87486) Immature Grans (Abs) 0.0 {x10E3/uL} (Normal) Range: [...] 3.77-5.28 WBC 3.2 {x10E3/uL} (Abnormal) Range: 3.4-10.8 91-Bgg-401535:04 URINALYSIS (61862) Comments: PATIENT NOT FASTINGPERFORMED BY: [facility]6370 [facility] [id number] Microscopic Examination MICNIP (Normal) Comments: Microscopic not indicated and not performed. Nitrite, Urine Negative (Normal) Urobilinogen,Semi-Qn 0.2 mg/dL (Normal) Range: 0.2-1.0 Bilirubin Negative (Normal) Occult Blood Negative (Normal) Ketones Negative (Normal) Glucose Negative (Normal) Protein Negative (Normal) WBC Esterase Negative (Normal) Appearance Clear (Normal) Urine-Color Yellow (Normal) pH 6.5 (Normal) Range: 5.0-7.5 Specific Freeman 1.008 (Normal) Range: 1.005-1.030 :47 IGP, Aptima HPV, Comments: Source.............Cervix;EndocervixNo. of containers..01 CYTYC Thin Prep VialPATIENT NOT FASTINGPERFORMED BY: =G [facility] [address] [id number] BY: WB [facility] rfx 16/18,[address] [id number] HPV Aptima Negative (Normal) Comments: This test [...] for evaluation. No endocervical component is identified.Z01.419Amanda Josh Rosa [employer] (ASCP) :47 Thin prep Pap Comments: Source.............Cervix;EndocervixNo. of containers..01 CYTYC Thin Prep VialPATIENT NOT FASTINGPERFORMED BY: =G [facility] [address] [id number] BY: [facility] (13708) (no STD rp [address] [id number] Information: [id number] testing) Age Gdln ACOG Testing 30-65 (Normal) 56-Utl-54150:32 CALCIFIDIOL (01240) VIT D 25 Comments: PATIENT WAS FASTINGPERFORMED BY: [facility] Coyohv9867 [facility] [id number] Vitamin D, 25-Hydroxy 38.1 ng/mL (Normal) Range: 30.0-100.0 Comments: Vitamin D deficiency has been defined by the [place] of[place]icine and an Endocrine Society practice guideline as alevel of serum 25-OH vitamin D less than 20 ng/mL (1,2).The Endocrine Society went on to further define vitamin Dinsufficiency as a level between 21 and 29 ng/mL (2).1. IOM ([place] of Medicine). 2010. Dietary reference intakes for calcium and D. [place]: The National Academies Press.2. De MF, Agustin PEREIRA, Andree CHAO, et al. Evaluation, treatment, and prevention of vitamin D deficiency: an Endocrine Society clinical practice guideline. JCEM. 2010; 96(7):1911-30. 64-Mpa-03836:32 HGB A1C (23873) Comments: PATIENT WAS FASTINGPERFORMED BY: [facility] [id number]; fu 5-30 db Hemoglobin A1c 5.9 % (Abnormal) Range: 4.8-5.6 Comments: . Pre-diabetes: 5.7 - 6.4 Diabetes: >6.4 Glycemic control for adults with diabetes: <7.0 :05 URINE CHARLY CULTURE-IDENTIFICATN Comments: PATIENT NOT FASTINGPERFORMED BY: ITelagenrp Idmpvq5501 [facility] [id number] Information: [id number] (73968) Result 1 MUG (Normal) Comments: Mixed urogenital flora1,000 Colonies/mL Urine Culture,Comprehensive Final report (Normal) 70-Ihd-42463:29 Urinalysis, Office (16993) UA - LEUKOCYTE ESTERASE Negative (Normal) UA - NITRITE Negative (Normal) URINE UROBILINGN CHUY TIMED Normal mg/dL (Normal) UA - PROTEIN Negative mg/dL (Normal) UA - PH 6 (Abnormal) UA - BLOOD Non Hemolyzed Trace (Normal) UA - SPECIFIC GRAVITY 1.015 (Normal) UA - KETONES Negative mg/dL (Normal) UA - BILIRUBIN Negative (Normal) UA - GLUCOSE Negative (Normal) 59-Ayw-771605:59 URINE CHARLY CULTURE-CHUY COL Comments: PATIENT NOT FASTINGPERFORMED BY: [facility] Slusgu2769 [facility] [id number] Information: SRC:UR [id number] COUNT (73194) Result 1 ECV (Abnormal) Comments: Escherichia coli, [...] S Urine Final report Culture,Comprehensi (Abnormal) ve 38-Pnf-390741:23 Urinalysis, Office (01382) UA - LEUKOCYTE ESTERASE Trace (Normal) UA - NITRITE Negative (Normal) URINE UROBILINGN CHUY Normal mg/dL TIMED (Normal) UA - PROTEIN Negative mg/dL (Normal) UA - PH 7 (Normal) UA - BLOOD Negative (Normal) UA - SPECIFIC GRAVITY 1.010 (Normal) UA - KETONES Negative mg/dL (Normal) UA - BILIRUBIN Negative (Normal) UA - GLUCOSE Negative (Normal) ENDOMETRIAL See Note (Normal) Comments: [facility] [address] [place], [address] :02 BX/CURETTINGS Comments: Patient: SAMI CAMPUZANO : 1955 (59/F) Acct Num: [id number] Phys: Marcelo RAYMOND,Nayeli Unit Num: [id number] Loc: [facility] Specimen: [id number] Received: 01/09/15 - 1020 Spec Type: ENDOM [...] one cassette. / AM: 01/09/15 TC:5 CPT: 82963 HEADER OPERATION: Hysteroscopy, diagnostic D AND C PRE-OP DIAGNOSIS: Leiomyoma of uterus, postmenopausal bleeding TISSUE SUBMITTED: Endometrial curettings MICROSCOPIC DESCRIPTION Slides are reviewed. MICROSCOPIC DIAGNOSIS Endometrial curettings: Weakly proliferative endometrium with cystic atrophic ibarra es. SJ: 01/10/15 Signed Billy Vergarain 01/10/15 <signature on file> 41-Vwd-693757:30 ,Urine Comments: Test performed at:[facility] [address] [place] [address] HCGUQUAL Negative {Negative} (Normal) Comments: Very dilute urine specimens, as indicated by a low specificgravity, may not contain order entry representative levels of hCG.If is still suspected, a first morning urinespecimen should be collected 48 hours later and tested. 18-Oct-20147:08 CBC With Differential/Platelet Comments: PATIENT WAS FASTINGPERFORMED BY: [facility] BellevilleLezurr8353 [facility] [id number] Information: [id number] Immature Grans (Abs) 0.0 {x10E3/uL} (Normal) Range: [...] Panel (14) Comments: PATIENT WAS FASTINGPERFORMED BY: [facility] Rjbqzb1657 [facility] [id number] ALT (SGPT) 18 [iU]/L (Normal) Range: 0-32 [...] 204.3 pg/mL Comments: PATIENT WAS FASTINGPERFORMED BY: Leadj[facility] [id number] (Normal) Comments: Adult Female: Follicular phase 12.5 - 166.0 Ovulation phase 85.8 - 498.0 Luteal phase 43.8 - 211.0 Postmenopausal <6.0 - 54.7 1st trimester 215.0 - & gt;4300.0 Girls (1-10 years) 6.0 - 27.0Roche ECLIA methodology :08 FSH and LH Comments: PATIENT WAS FASTINGPERFORMED BY: [facility] [id number] FSH 43.8 m[iU]/mL (Normal) Comments: Follicular phase 3.5 - 12.5 Ovulation phase 4.7 - 21.5 Luteal phase 1.7 - 7.7 Postmenopausal 25.8 - 134.8 LH 47.0 m[iU]/mL (Normal) Comments: Follicular phase 2.4 - 12.6 Ovulation phase 14.0 - 95.6 Luteal phase 1.0 - 11.4 Postmenopausal 7.7 - 58.5 :08 Lipid Panel With LDL/HDL Comments: PATIENT WAS FASTINGPERFORMED BY: [facility] [id number] Ratio LDL/HDL Ratio 1.9 {ratio_units} (Normal) Range: [...] Microscopic Examination Comments: PATIENT WAS FASTINGPERFORMED BY: [address] [id number] Bacteria Few (Normal) Mucus Threads Present (Normal) Epithelial Cells (non >10 {/hpf} Range: 0 - 10 renal) (Abnormal) RBC 0-2 {/hpf} (Normal) Range: 0 - 2 WBC 0-5 {/hpf} (Normal) Range: 0 - 5 : Prolactin 26.7 ng/mL Comments: PATIENT WAS FASTINGPERFORMED BY: [address] [id number] (Abnormal) Range: 4.8-23.3 :08 Thyroxine (T4) Free, Direct, S Comments: PATIENT WAS FASTINGPERFORMED BY: [address] [id number] T4,Free(Direct) 1.02 ng/dL Range: 0.82-1.77 (Normal) Triiodothyronine,Free,Seru 3.5 pg/mL (Normal) Comments: PATIENT WAS FASTINGPERFORMED BY: [address] [id number] :08 m Range: 2.0-4.4 TSH 3.990 {uIU/mL} Comments: PATIENT WAS FASTINGPERFORMED BY: [address] [id number] :08 (Normal) Range: 0.450-4.500 :08 Urinalysis, Complete Comments: PATIENT WAS FASTINGPERFORMED BY: [place] 2958270 [facility] [id number] Microscopic Examination See below: (Normal) Comments: Microscopic was indicated and was performed. Microscopic Examination MICRON (Normal) Comments: Microscopic follows if indicated. Nitrite, Urine Negative (Normal) Urobilinogen,Semi-Qn 0.2 mg/dL (Normal) Range: 0.0-1.9 Bilirubin Negative (Normal) Occult Blood Negative (Normal) Ketones Negative (Normal) Glucose Negative (Normal) Protein Negative (Normal) WBC Esterase Negative (Normal) Appearance Clear (Normal) Urine-Color Yellow (Normal) pH 6.0 (Normal) Range: 5.0-7.5 Specific Freeman 1.025 (Normal) Range: 1.005-1.030 :52 IGP, Aptima HPV, Comments: Source.............Cervical;EndocervicalNo. of containers..01 CYTYC Thin Prep VialPATIENT NOT FASTINGPERFORMED BY: =G [facility] [id number] BY: WB L rfx 16/18,[address] [facility] [address] [id number] HPV Aptima Negative (Normal) Comments: This test [...] are present.V72.31 ; Routine gynecological examinationMarisol Nava [employer] (ASCP) :52 IGP,Aptima Comments: Source.............Cervical;EndocervicalNo. of containers..01 CYTYC Thin Prep VialPATIENT NOT FASTINGPERFORMED BY: =G [facility] Grhcelioqv693 [facility] CenterAdis[facility] W [id number] BY: WB L HPV,CtNg Age Gdln [facility] Iystrbqitx929 [facility] CenteradrienneForsy[facility]irm[facility] Childrenpeytonmount [facility] W [id number] Information: [id number] Age Gdln ACOG Testing 30-65 (Normal) :18 Urinalysis, Office (67295) UA - LEUKOCYTE ESTERASE Small (Normal) UA - NITRITE Negative (Normal) URINE UROBILINGN CHUY TIMED Normal mg/dL (Normal) UA - PH 7.0 (Normal) UA - BLOOD Non Hemolyzed Trace (Normal) UA - SPECIFIC GRAVITY 1.010 (Normal) UA - KETONES Negative mg/dL (Normal) UA - BILIRUBIN Negative (Normal) UA - GLUCOSE Negative (Normal) 96-Bct-525211:35 PELVIC (NON ) Radiology Report See Note [...] $$$ <=0.25 S VANCOMYCIN $ <=0.5 S 39-Odt-16259:05 Urinalysis, Office (67294) UA - BILIRUBIN Negative (Normal) UA - BLOOD Hemolyzed Small (Normal) UA - GLUCOSE Negative (Normal) UA - KETONES Negative mg/dL (Normal) UA - LEUKOCYTE ESTERASE Negative (Normal) UA - NITRITE Negative (Normal) UA - PH 6.0 (Normal) UA - PROTEIN Negative mg/dL (Normal) UA - SPECIFIC GRAVITY 1.015 (Normal) URINE UROBILINGN CHUY TIMED 2 mg/dL (Normal) 39-Zah-32748:46 Thin prep Pap Comments: Source.............Cervical;EndocervicalLMP / Prev Treat...PZY=[id number]. of containers..01 CYTYC Thin Prep VialPATIENT NOT FASTINGPERFORMED BY: [facility] [id number] [address] [id number] ([id number]) . . (Normal) DIAGNOSIS: SPRCS (Normal) Comments: NEGATIVE FOR INTRAEPITHELIAL LESION AND MALIGNANCY.FUNGAL ORGANISMS MORPHOLOGICALLY CONSISTENT WITH MAURY SPECIES AREPRESENT.THIS SPECIMEN WAS RESCREENED PART OF OUR MANAGER [employer] for evaluation. Endocervical and/or squamous metaplasticcells (endocervical component) are present.V72.31 ; Routine gynecological examinationPetra Griggs, [employer] (ASCP)Samia Parmar, Supervisory [employer] (ASCP) Note: PAPSMR (Normal) Comments: The Pap [...] resulttherefore, no HPV testing was performed. . 94-Bjs-009036:46 [facility] Rad[facility] Report See Note (Normal) Comments: Exam Number: [id number] BILATERAL DIAGNOSTIC DIGITAL MAMMOGRAM CLINICAL INFORMATIONAbnormal mammogram. [...] mammograms werealso examined with computer-aided detection software (Stocard, Retsly.). Reported By: DAYNA RUSSELL M.D. 13-Jul-20078:02 [facility] DIGITAL & CAD Radiology Report See Note (Normal) Comments: Exam Number: [id number] BILATERAL SCREENING DIGITAL MAMMOGRAM CLINICAL INFORMATIONScreening. Bilateral digital mammography was performed as a screening exam. Standard CC and MLO views were ob tained. Ther e was a delay in issuing the report [facility] [place] [facility]. That study was ongus2003. FINDINGSThe overall appearance of the breasts is [...] The mammogramswere also examined with computer-aided detection software(Sokoos.). Reported By: DAYNA RUSSELL M.D. :1 GLU [...] Planned Observations CBC, Platelets & Auto Diff ([id number])Indication: Abdominal pain, acute, left lower quadrant (Renamed from Acute abdominal pain in left lower quadrant) On: 81-Osp-88046:26 Request HGB A1C (66287)Indication: Abnormal fasting glucose On: 29-Pdk-297591:54 Request T3, FREE (TRIDOTHYRONINE) (13167)Indication: Thyroid nodule On: 6-Oel-398781:26 Request T4, FREE (THYROXINE) (01200)Indication: Thyroid nodule On: :26 Request TSH (02727)Indication: Thyroid nodule On: 1-Ajo-340626:25 Request FSH AND LH (38349)Indication: Abnormal vaginal bleeding On: :24 Request ESTRADIOL (77218)Indication: Abnormal vaginal bleeding On: :24 Request PROLACTIN (11692)Indication: Abnormal vaginal bleeding On: :24 Request T3, FREE (TRIDOTHYRONINE) (18291)Indication: Goiter On: :17 Request T4, FREE (THYROXINE) (48547)Indication: Goiter On: :17 Request TSH (32405)Indication: Goiter On: :17 Request Thin Prep Pap (40624)Indication: Well woman exam On: :15 Request URINALYSIS, W/ MICRO ([id number])Indication: Well woman exam On: :15 Request METABOLIC PANEL, COMPREHENSIVE (88646)Indication: Well woman exam On: :15 Request CBC with auto diff (70794)Indication: Well woman exam On: :15 Request LIPID PANEL (55437)Indication: Well woman exam On: :15 Request URINE CHARLY CULTURE-CHUY COL COUNT (88374)Indication: Acute cystitis without hematuria On: :37 Request URINE CHARLY CULTURE-CHUY COL COUNT (07773)Indication: Urinary retention On: 36-Eii-80537:05 Request Glucose (63502)Indication: WWV On: 55-Gzj-769121:46 Request Lipid Panel (38014)Indication: WWV On: 13-Abv-621818:46 Request Planned Encounters Medical; [facility] Wellness Exam (DB Nurse) - db pt pt wanted a wed On: 25-May-2018 8:45 [facility] NURSE, DF Medical; JALYNP Wellness Exam (Doctor) - On: 08-Jun-2018 8:00 [facility] Nehal Vu MD, MD, Dana M Planned Procedures Ultrasound - AortaBy: Horace RAYMOND, On: 15-Mar-2018 Intent Nehal Collins MD Comments: 4onths DEXA SCAN AXIAL SKELETON (30167)By: On: 25-May-2017 Intent Nehal Vu MD, MD, Dana M SCREENING DIGITAL TOMOSYNTHESIS OF On: 25-May-2017 Intent BREAST (39152)By: Nehal Vu MD, MD, Dana M TDAP VACCINE >7 IM (58027)By: On: 25-May-2017 Intent Nehal Vu MD, MD, Dana Comments: lot:[id number]:03-26-19rte:IM dose:0.5mlgiven by:GURU Briones Ultrasound - ThyroidBy: Horace RAYMOND, On: 05-May-2016 Intent Nehal Collins MD Comments: recheck 3-17 MAMMOGRAM BREAST BILATERAL SCREENING On: 05-May-2016 Intent DIGITAL ([id number])By: Nehal Vu MD, MD, Dana M Ultrasound [...] MAMMOGRAM, SCREENING, BOTH BREAST On: 21-Jun-2014 Intent (87142)By: Nehal Vu MD, MD, Dana M Aerosol Treatment (24825)By: Alyse On: 19-Apr-2012 Intent LACQUER SPRAYER Jacquelin Wax CurettesBy: Alyse LACQUER SPRAYER, Jacquelin On: 19-Apr-2012 Intent Ear Irrigation (71059)By: Alyse On: 19-Apr-2012 Intent Belia HERNANDEZ E Solu -Medrol Injection, 125 mg On: 10-Sep-2011 Intent ([id number])By: Nehal Vu MD Comments: Lot #[id number]-R hip, IMDose 125mggiven by:Nehal Bowie MD Rocephin Injection, 2 Gram On: 24-Oct-2010 Intent ([id number])By: Benita Carrion DO Comments: Lot #[id number]-R and L hipsDose 2 grams/4ml split into 2 dosesgiven by: Ultrasound - PelvisBy: Murali VILLATORO, On: 24-Oct-2010 Intent Benita THER/PROPH/DIAG INJ, SC/IM On: 24-Oct-2010 Intent ([id number])By: Benita Carrion DO MAMMOGRAM, SCREENING, BOTH BREASTS On: 26-Apr-2007 Intent ([id number])By: Nehal Vu MD, MD, Dana M TD Injection , IM (22809)By: On: 26-Apr-2007 Intent Nehal Vu MD, MD, Dana Comments: given in left deltoid, lot#[id number], exp.6.12.--WF M Planned Medications INJECTION, CEFTRIAXONE SODIUM, PER 250 MG Ordered: 24-Oct-2010 Pending Benita Carrion DO INJECTION, METHYLPREDNISOLONE SODIUM SUCCINATE, UP TO 125 MG Ordered: 10-Sep-2011 Pending Horace RAYMOND, Nehal Vu MD, Nehal Castellanos Instructions Name Dates Details Non-STEMI (non-ST elevated [...] Patient Instructions Indication: Well woman exam Encounters Review On: 15-Mar-2018 16:22 Encounter Reason: Follow up hospital - Reason for ER visit: heart attack. The patient feels well with minor complaints, has decreased energy level and is sleeping well. Patient has been compliant with instructions. Princess durand medication use: compliant with dosing regimen. Patient [...] for Tdap vaccination (Renamed from Need for swpjgtymui-xcqdqsd-sfsjkpxhs (Tdap) vaccine, adult/adolescent), Screening mammogram, encounter for, [...] at night. The symptoms are a End: 8-Kip-2013 13:15 ggravated by supine posture. The symptoms [...] acuity (2006 Dr. Sosa ). Encounter Diagnosis: [facility]; candida guarantor
--- OUTSIDE RECORDS SUMMARY | 2018-05-04 10:02 | XMS RPT_ITS ---
:1955 Author Organization OHIP Support Name Relationship Address Phone JERROD CAMPUZANO Unavailable [address] + [place] [address] HOME APPLIANCE Unavailable [address] + [place] [address] JERROD CAMPUZANO Unavailable [address] + [place] [address] HOME APPLIANCE Unavailable [address] + [place] [address] JERROD CAMPUZANO Unavailable [address] + [place] [address] HOME APPLIANCE Unavailable [address] + [place] [address] JERROD CAMPUZANO Unavailable [address] + [place] [address] HOME APPLIANCE Unavailable [address] + [place] [address] JERROD CAMPUZANO Unavailable [address] + [place] [address] HOME APPLIANCE Unavailable [address] + [place] [address] JERROD CAMPUZANO Unavailable [address] + [place] [address] HOME APPLIANCE Unavailable [address] + [place] [address] JERROD CAMPUZANO Unavailable [address] + [place] [address] HOME APPLIANCE Unavailable [address] + [place] [address] JERROD CAMPUZANO Unavailable [address] + [place] [address] HOME APPLIANCE Unavailable [address] + [place] [address] BEUN JERROD Unavailable [address] + [place] [address] HOME APPLIANCE Unavailable [address] + [place] [address] JUSTEN JERROD Unavailable [address] + [place] [address] HOME APPLIANCE Unavailable [address] + [place] [address] BEUN JERROD Unavailable [address] + [place] [address] HOME APPLIANCE Unavailable [address] + [place] [address] Care Team Providers Name Role Phone Horace RAYMOND, Nehal Castellanos Attending Unavailable Horace RAYMOND, Nehal Castellanos Referring Unavailable Horace RAYMOND, Nehal Castellanos Consulting Unavailable Yina Roche Attending Unavailable Emerson Thrasher Attending Unavailable Nehal Vu Attending Unavailable Nehal Vu Referring Unavailable Horace Nehal Primary Care Unavailable Nehal Vu Attending Unavailable Horace Nehal Primary Care Unavailable Wade Cortez Admitting Unavailable Emerson Thrasher Consulting Unavailable Aniket, Ghtiburciom Attending Unavailable Sudeep Holloway Attending Unavailable AgWade harman Referring Unavailable AgWade harman Admitting Unavailable AgWade harman Attending Unavailable Nehal Vu Primary Care Unavailable Wade Cortez Consulting Unavailable IssayeWade duvall Admitting Unavailable Emerson Thrasher Attending Unavailable Horace Nehal Primary Care Unavailable Emerson Thrasher Consulting Unavailable Aniket, Ghtiburciom Consulting Unavailable Wade Cortez Admitting Unavailable Nehal Vu Primary Care Unavailable Emerson Thrasher Consulting Unavailable Aniket, Ghtiburciom Attending Unavailable Nerielfah, Ghasem Consulting Unavailable Yina Roche Attending Unavailable Emerson Thrasher Attending Unavailable Emerson Thrasher Referring Unavailable Nehal Vu Primary Care Unavailable PROBLEMS PROBLEMS DATE TYPE CONDITION / CODE ATTENDING STATUS SOURCE 03/25/2018 Unknown R00.2 - Emerson Thrasher Active [place] Palpitations / Community R00.2(ICD-10) Hospital Repository 03/25/2018 Unknown R55 - Syncope and Emerson Thrasher Active [place] collapse / Community R55(ICD-10) Hospital Repository 03/25/2018 Unknown R00.1 - JewelSudeep Active [place] Bradycardia, Community unspecified / Hospital R00.1(ICD-10) Repository 02/03/2018 Unknown R10.32 - Left BoneNehal marie Active [facility] pain / Hospital R10.32(ICD-10) Repository 07/19/2017 Unknown Z12.31 - Encounter BoneNehal marie Active [facility] for screening [facility] mammogram for Hospital malignant neoplasm Repository of breast / Z12.31(ICD-10) PROCEDURES PROCEDURES No Procedure Records FoundRESULTS RESULTS CARDIOLOGY VISIT Observed: 03/25/2018 Status: F Source: AGUILAR REPORT 4:24 PM [facility] HOSPITAL REPOSITORY [facility] [address] [place] [address]. [address] [place] [address] OFFICE VISIT Date of Service: 03/25/18 MR#: [id number] Acct: [id number] Name: SAMI CAMPUZANO Rep #: [id number] : 1955 Provider: Emerson Thrasher MD Age/Sex: 62/F Location: [facility] Status: Signed HPI HPI Details: SAMI CAMPUZANO, is a 62 F who presents to the office today for Outpatient cardiovascular followup. As you recall she was evaluated at [facility] and cardiovascular consultation on 03/09/2018 for concerns of palpitations, syncope, or abnormal cardiac enzyme levels, and no palpable abdominal aorta. She underwent noninvasive and invasive evaluation. Her results are as noted below. She was released home with a 30 day ambulatory event monitor. In the interim she was placed on low-dose beta kenrick therapy. Since being home she states the only time she noted anything with her heartbeats as the day she did not take her beta kenrick. That was on 03/20/2018. On that day her monitor recorded what appeared to be sinus tachycardia at approximately 124 beats per minute. At the same time there was another episode of a regular narrow complex tachycardia at approximately 164 beats/minute raising concerns of continued sinus tachycardia, as she does state she was physically active at the time, versus whether or not he could be some form of an underlying supraventricular tachycardia. Otherwise she has had sinus rhythm with varying rates with the exception of 1 episode demonstrating a 4 beat nonsustained irregular wide complex rhythm. She has had no other symptoms. There has been no near syncope or syncope. There have been no other forms of chest discomfort or difficulty breathing. She had a followup ECG in the office today. At this time she is in sinus bradycardia with a ventricular rate in the upper 40s with no obvious acute ECG changes. Intake Vital Signs03/25/18 Body Mass Index (BMI) 22.8 03/25/18 Height 5 ft 4 in 03/25/18 Weight: 133 lb 03/25/18 Body Mass Index (BMI) 22.8 03/25/18 Blood Pressure 90/58 L Intake Visit Reasons: post cath Allergies No Known Allergies Allergy (Verified 03/25/18 14:16) Medications Multivitamin [Daily Multiple Vitamin] 1 ea PO DAILY 03/08/18 [History Confirmed 03/25/18] Metoprolol Tartrate 12.5 mg PO DAILY #30 tab 03/09/18 [Rx Confirmed 03/25/18] [facility] Medical History Syncope (Acute) Epigastric pain (Acute) Palpitations (Acute) Abnormal cardiac enzyme level (Acute) Palpable abdominal aorta (Acute) Prediabetes (Acute) Surgical History History of cholecystectomy (Resolved) History of left knee surgery (Resolved) S/P cardiac catheterization (Resolved 03/09/18) Family History Father Heart problem Brother Diabetes Brother Diabetes Sister Diabetes Sister Paroxysmal supraventricular tachycardia Sister Tachycardia Social History Smoking Status: Never smoker alcohol intake: never ROS Const Const: Negative for fatigue, weakness, weight gain, weight loss, frequent falls or excessive sweating Eyes Eyes: Negative for change in vision, blurry vision or transient loss of vision ENT ENT: Negative for dizziness or balance problems Cardio Chest Pain: No Palpitations: Yes (x1 episode 03/20) feels like its: fast Edema: None Muscle aches with walking: None Resp Respiratory: Negative for SOB with activity or SOB at rest GI GI: Negative vomiting or vomiting blood/hematemesis : Negative for hematuria Musc Musc: Negative for balance problems, muscle aches/ myalgia, muscle weakness or joint pain Skin Skin: Negative non-healing lesions or rash Neuro Neuro: Positive for lightheadedness (with fast HR); negative for weakness, blurry vision, dizziness, frequent falls or orthostatic symptoms Anastacio Hematologic/Lymphatic: Negative for easy bleeding Endo Endo: Negative for fatigue or excessive sweating Psych Psych: Negative for anxiety or depression Allergy Allergy/Immunology: Negative for hives, Negative for rash Cardiology Exam Const Appearance: cooperative, healthy appearing, comfortable, no acute distress, well developed and well groomed Nutritional Appearance: thin Orientation: alert, awake and oriented x3 Limitations: altered mental status Head Head: normal to inspection and normocephalic Ears: hearing grossly normal bilaterally Nose: external nose normal Face and Sinus: face symmetric Mouth: oral mucosae normal Teeth and gingiva: fair dentition Eyes Eyelids: eyelids normal Conjunctivae: conjunctivae normal Pupils: PERRL EOM: EOM intact bilaterally Neck Neck: normal visual inspection and full ROM Carotids: normal carotid upstroke Chest Chest inspection: normal inspection of the chest, symmetric chest movement and normal respiratory effort Auscultation: Bilateral: Clear to Auscultation Cardio Palpation: normal PMI Rate: regular rate Rhythm: regular rhythm Heart sounds: S1 normal and S2 normal GI GI: normal to inspection, bowel sounds present and soft Neuro General: alert, awake, oriented x3, moves all extremities, no focal sensory deficit and no focal motor deficits Skin Skin: no rashes or lesions noted Extremities Pulses: Normal: Right Radial Pulse, Left Radial Pulse Lower Extremity Edema: None: Bilateral Psych Psychological: normal affect Assessment AND Plan 1. Syncope, unspecified syncope type R55 Plan At the present time she has had no recurrent syncopal events. She is going to continue her low-dose beta kenrick therapy. She will continue her 30 day ambulatory event monitor. Orders Orders: 2. Palpitations R00.2 Plan She has not been complaining of ongoing palpitations. She believes overall she has done better with the beta kenrick therapy. She will continue to be followed as noted above. Orders Orders: 3. Abnormal cardiac enzyme level R74.8 Plan Her cardiac enzyme levels did not appear to be related to underlying atherosclerotic coronary artery disease. There was a concern as to whether or not it could have been related to a tachycardia mediated event and a subsequent type 2 mediated event. At the present time she is continuing low-dose beta kenrick therapy and outpatient ambulatory monitoring and follow up. 4. Palpable abdominal aorta R09.89 Plan She underwent evaluation for her abdominal aorta with noninvasive studies. She also had this evaluated during the cardiac catheterization laboratory procedure. There was no reported evidence of aneurysmal dilatation. Plan Detail Additional Comments At the present time she will continue her medical management and her ambulatory monitoring. She will be asked have a future followup. Her case will be reassessed before the need for further evaluation, medical therapy, versus any concern of cardiac dysrhythmia is requiring electrophysiology consultation, etc. Thank you for allowing me to participate in the care of your patient. Please don't hesitate to call if any issues arise. This note was generated using a voice recognition system and there may be incorrect words, spelling or punctuation that were not noted when reviewing the office note prior to saving. Follow Up 6 Weeks (PFM) Coding Level of Care Code Off vis,est,level 3 Diagnoses Syncope, unspecified syncope type R55 Syncope type: unspecified Palpitations R00.2 Abnormal cardiac enzyme level R74.8 Palpable abdominal aorta R09.89 Coding Level of Care Code Off vis,est,level 3 Diagnoses Syncope, unspecified syncope type R55 Syncope type: unspecified Palpitations R00.2 Abnormal cardiac enzyme level R74.8 Palpable abdominal aorta R09.89 03/25/18 1624 <Electronically signed by Emerson Thrasher MD> Date Emerson Thrasher MD Cosigner Signature: Date (if applicable) CC: 12 LEAD EKG PERFORMED Observed: 03/25/2018 Status: F Source: [place] BY WON 2:16 PM [facility] REPOSITORY [place] [address] [place] [address] 12 Lead EKG performed by WON 03/25/18 1416 MR#: [id number] Acct: [id number] Name: SAMI CAMPUZANO Rep #: [id number] : 1955 62 From: Emerson Thrasher MD Attending Dr: Emerson Thrasher MD Status: DEP AMB Ordering Dr: Emerson Thrasher MD Date: 03/25/18 Location: [facility] Sex: F C Admitted: BMS/12 Lead EKG performed by [facility] ECG Report Interpretation Marked sinus Bradycardia Poor R wave progressionElectronically signed on 03/25/2018 at 17:45 by Emerson Thrasher [employer] Version 8610 03/25/18 1746 Date Emerson Thrasher MD CC: Date Dictated: 03/25/181415 Date Transcribed: 03/25/181415 Chief Concierge: PM Signed 12 LEAD ELECTROCARDIOGRAM Observed: 03/11/2018 Status: F Source: AGUILAR 2:22 PM [facility] REPOSITORY [facility] Cardiovascular Services [address] [place] [address] 12 Lead EKG 03/08/18 1813 MR#: [id number] Acct: [id number] Name: SAMI CAMPUZANO Rep #: [id number] : 1955 62 From: Sudeep Holloway MD Attending Dr: Alejandra Marcial Status: DIS SASKIA Ordering Dr: Reggie Clark MD Date: 03/08/18 Location: [facility] Sex: F C Admitted: 03/08/18 Test Reason : CP Blood Pressure : / mmHG Vent. Rate : 056 BPM Atrial Rate : 056 BPM P-R Int : 130 ms QRS Dur : 080 ms QT Int : 396 ms P-R-T Axes : -13 071 064 degrees QTc Int : 382 ms Sinus bradycardia Otherwise normal ECG Confirmed by JEWEL RAYMOND, SUDEEP ([id number]), field map editor ALF ALTAMIRANO ([id number]) on 03/11/2018 2:21:58 PM Referred By: MANDI Confirmed By:SUDEEP HOLLOWAY MD 03/11/181421 Date Sudeep Holloway MD CC: Nehal Vu MD; Alejandra Marcial; Reggie Clark MD Signed 12 LEAD ELECTROCARDIOGRAM Observed: 03/11/2018 Status: F Source: [place] 2:22 PM [facility] HOSPITAL REPOSITORY [facility] Cardiovascular Services [address] [place] [address] 12 Lead EKG 03/08/18 1844 MR#: [id number] Acct: [id number] Name: SAMI CAMPUZANO Rep #: [id number] : 1955 62 From: Sudeep Holloway MD Attending Dr: Alejandra Marcial Status: DIS SASKIA Ordering Dr: Reggie Clark MD Date: 03/08/18 Location: [facility] Sex: F C Admitted: 03/08/18 Test Reason : REPEAT Blood Pressure : / mmHG Vent. Rate : 060 BPM Atrial Rate : 060 BPM P-R Int : 136 ms QRS Dur : 080 ms QT Int : 394 ms P-R-T Axes : 015 057 054 degrees QTc Int : 394 ms Normal sinus rhythm with sinus arrhythmia Normal ECG Confirmed by JEWEL RAYMOND, SUDEEP ([id number]), field map editor ALF ALTAMIRANO ([id number]) on 03/11/2018 2:22:10 PM Referred By: TAWANA Confirmed By:SUDEEP HOLLOWAY MD 03/11/181421 Date Sudeep Holloway MD CC: Nehal Vu MD; Alejandra Marcial; Reggie Clark MD Signed 12 LEAD ELECTROCARDIOGRAM Observed: 03/11/2018 Status: F Source: EJ 2:05 PM [facility] HOSPITAL REPOSITORY [facility] Cardiovascular Services [address] [place] [address] 12 Lead EKG 03/08/18 205 MR#: [id number] Acct: [id number] Name: SAMI CAMPUZANO Rep #: [id number] : 1955 62 From: Sudeep Holloway MD Attending Dr: Alejandra Marcial Status: DIS SASKIA Ordering Dr: Wade Cortez MD Date: 03/08/18 Location: [facility] Sex: F C Admitted: 03/08/18 Test Reason : CP ADMIT Blood Pressure : / mmHG Vent. Rate : 058 BPM Atrial Rate : 058 BPM P-R Int : 138 ms QRS Dur : 086 ms QT Int : 406 ms P-R-T Axes : 078 062 071 degrees QTc Int : 398 ms Sinus bradycardia Otherwise normal ECG Confirmed by SUDEEP HOLLOWAY MD ([id number]), field map editor ALF ALTAMIRANO ([id number]) on 03/11/2018 2:05:22 PM Referred By: DR OLMSTEAD Confirmed By:SUDEEP HOLLOWAY MD 03/11/18 1405 Date Sudeep Holloway MD CC: Nehal Vu MD; Alejandra Marcial; Wade Cortez MD Signed ABD AORTIC/IVC DUPLEX Observed: 03/09/2018 Status: F Source: AGUILAR SCAN 5:44 PM [facility] REPOSITORY [facility] Cardiovascular Services [address] [place] [address] Abd Aortic/IVC Duplex scan 03/09/18 1155 MR#: [id number] Acct: [id number] Name: SAMI CAMPUZANO Rep #: [id number] : 1955 62 From: Pb Smith MD Attending Dr: Alejandra Marcial Status: DIS SASKIA Ordering Dr: Emerson Thrasher MD Date: 03/09/18 Location: [facility] Sex: F C Admitted: 03/08/18 Reason For Study: Palpable aorta Aorta Measurements Aorta Doppler Measurements Proximal aorta measures2.2 x 2.1cm. in cross- Peak systolic flow velocities within the proximal sectional axis. aorta measure 75.9 cm/sec. Proximal aorta measures2.0cm. in longitudinal Peak systolic flow velocities within the mid aorta axis. measure 94.7 cm/sec. Mid aorta measures1.6 x 1.7cm. in cross-sectional Peak systolic flow velocities within the distal axis. aorta measure 77.5 cm/sec. Mid aorta measures1.6cm. in longitudinal axis. Distal aorta measures1.6 x 1.7cm. in cross- sectional axis. Distal aorta measures1.7cm. in longitudinal axis. Left Iliac Artery Left iliac artery measures 1.1 cm. in the longitudinal axis. Left iliac artery measures 1.1 x 1.0 cm. in the cross-sectional axis. Peak systolic velocity in the left iliac artery measures 102.0 cm/sec. Right Iliac Artery Right iliac artery measures .93 cm. in the longitudinal axis. Right iliac artery measures 1.1 x 1.1 cm. in the cross-sectional axis. Peak systolic velocity in the right iliac artery measures 86.7 cm/sec. Procedure Aorta IVC Iliac vasculature or bypass grafts 15716. Exam performed portable in patient room. Interpretation Summary Maximal aortic diameter 2.2 x 2.1 cm proximally with normal flow Left common iliac 1.1 x 1 cm Left common iliac 1.1 x 1.1 cm Ordering Physician: Emerson Thrasher Referring Physician: Nehal Vu M.D. Performed By: Monse Yuan RVT 03/09/18 1743 Date Pb Smith MD CC: Nehal Vu MD; Alejandra Marcial; Emerson Thrasher MD Date Dictated: 03/09/18 1155 Date Transcribed: 03/09/18 1743 Chief Concierge: Signed HISTORY AND PHYSICAL Observed: 03/09/2018 Status: F Source: EJ EXAM 5:31 PM [facility] REPOSITORY [facility] Medical Records Department [address] [place] [address] History and Physical 03/08/182000 MR#: [id number] Acct: [id number] Name: SAMI CAMPUZANO Rep #: [id number] : 1955 62 From: Wade Cortez MD PCP: Nehal Vu MD Status: DIS SASKIA Y Location: [place] [address] ADDENDUM by Wade Cortez MD on 03/09/18 at 1731 Code Visit She did not she denies any aggravating factor to her epigastric pain. Should read: She denies any aggravating factor to her epigastric pain. 03/09/18 173 <Electronically signed by Wade Cortez MD> Date Wade Cortez MD cc: Nehal Vu MD; Wade Cortez MD * Signed Problem List (1) Syncope Status: Acute (2) Epigastric pain Status: Acute History of Present Illness Date of Admission: 03/08/18 Chief Complaint: racing heart The patient is a 62 year old F with a significant history of prediabetes resolved with lifestyle changes of diet and exercise who presented with persistent palpitations. Patient reported that in the past year she has had palpitations that goes away in 30 minutes however this time around she had persistent palpitations which will not go away. She reached out into a cabinet to grab something and then she had a transient loss of consciousness. She denies vertigo, but reports that she was unable to focus. Assisted with her symptoms is nonradiating epigastric pain that she rates as 4 out of 10 in severity. Epigastric pain was dull and stabbing. Her epigastric pain was relieved with aspirin that she received at emergency department. She did not she denies any aggravating factor to her epigastric pain. Further, she reported vomiting and diaphoresis. She reported that her father had heart problems in his 40s-50s. EKG at the ED showed some subtle ST elevation in inferior leads. Emergency department doctor talked to Dr. Thrasher and Dr. Ray. Per recommend patient from Dr. Thrasher; emergency department doctor ordered Brilinta and therapeutic Lovenox. On the floor repeat EKG was sent to Dr. Ray. The repeat EKG showed resolution of the previous subtle ST elevation. Past Medical History Medical History: Medical History (Last Reviewed 03/09/18 @ 04:30 by Wade Cortez MD) Prediabetes R73.03 Allergies No Known Allergies Allergy (Verified 03/08/18 18:15) Home Medications: Ambulatory Orders Medication Instructions Recorded Multivitamin [Daily Multiple 1 each PO DAILY 03/08/18 Vitamin] Surgical History: cholecystectomy, - - R knee surgery Lives: Spouse/ Significant Other Smoking Status: Never smoker Alcohol: None - *Family History Paternal Family History: Family History (Last Reviewed 03/09/18 @ 04:30 by Wade Cortez MD) Father Heart problem Brother Diabetes Brother Diabetes Sister Diabetes Review of Systems Constitutional: Denies: Chills, Fever, Weight Change HEENT: Denies: Head Aches, Sinus Congestion, Sinus Drainage Cardiovascular: Reports: Chest Pain, Palpitations, Syncope Respiratory: Denies: Cough, Shortness of breath at rest, Sputum production Gastrointestinal: Reports: Vomiting. Denies: Abdominal Pain - epigastric pain Genitourinary: Denies: Dysuria Musculoskeletal: Denies: Joint Pain, Joint Tenderness Skin: Denies: Rash, Wounds Neurological: Denies: Numbness, Tingling, Focal weakness Psychiatric: Denies: Anxiety, Depression, Homicidal Ideations, Suicidal Ideations Hematologic/ Lymphatic: Denies: Easy Bruising, Easy Bleeding VTE Information - Inpt Only VTE Present on Admission: No VTE Mechan Device Prophylaxis: None VTE Pharm Prophylaxis ordered?: No Reason prophylaxis not ordered:: Treatment Not Indicated - Started on therapeutic lovenox for ACS Patient Problems: Active and Suspected Problems (Last Updated 03/08/18 @ 20:09 by Wade Cortez MD) Syncope (Acute) Epigastric pain (Acute) - Physical Exam General: Alert, Oriented x3, Cooperative HEENT: Atraumatic, PERRLA, EOMI, Normocephalic Neck: Supple, No JVD, Negative Carotid Bruits Lungs: Clear to auscultation, Normal air movement Cardiovascular: No murmurs, Bradycardic Abdomen: Bowel Sounds Present, Soft, Non Tender Extremities: No edema, Capillary Refill Less than 3 Seconds Skin: No rashes, No breakdown Musculoskeletal: No Tenderness to Palpation of Joints or Extremities Neurological: Cranial nerves II-XII grossly intact Psych/Mental Status: Normal Affect, Appropriate Vital Signs Temp Pulse Resp BP Pulse Ox 97.7 F L 59 L 15 121/75 H 98 03/08/18 18:11 03/08/18 19:30 03/08/18 19:30 03/08/18 19:30 03/08/18 19:30 Oxygen Delivery Method Room Air Weight: 59.874 kg Body Mass Index (BMI) 22.6 Laboratory Tests Past 24 Hrs Assessment/Plan All Active Problems (Last Updated 03/08/18 @ 20:09 by Wade Cortez MD) Syncope (Acute) Epigastric pain (Acute) The patient is a 62 year old F with a significant history of prediabetes resolved with lifestyle changes of diet and exercise who presented with persistent palpitations; chest pain and syncope. Syncope Likely from dysrhythmia. Patient admitted to progressive care unit on continued telemetry. Cardiology consult. Epigastric pain With her symptoms of syncope, palpitations, abnormal EKG, diaphoresis; family history of heart issues and her female gender it is likely that her symptoms is cardiac related.. Received aspirin 324 mg at emergency department. CXR independently reviewed confirms no acute cardia pulmonary process. EKG independently reviewed showed subtle ST abnormality in inferior leads with repeat EKG shows resolution of ST abnormality. Received ASA 324mg at the ED ASA 81 mg p.o. daily Brilinta loading dose ordered from the ED. Continue maintenance Brilinta dosage. Lovenox therapy dose ordered from the ED; continued. High intensity statin started. SL NTG 0.4 mg prn as needed for chest pain Serial cardiac enzymes Stat EKG as needed for chest pain Fasting lipids ordered. Cardiology consult for further risk stratification and management. Will keep patient npo for possible cardiac work up in am Palpitations On telemetry TSH ordered. Prediabetes A1C returned as 5.8 Patient to continue lifestyle modification DVT prophylaxis Not indicated on therapeutic Lovenox for possible acute coronary syndrome Code Visit OBSV E AND M: [id number] Initial observation care L3 03/09/18 0444 <Electronically signed by Wade Cortez MD> Date Wade Cortez MD Cosigner Signature: Date (if applicable) CC: Nehal Vu MD; Wade Cortez MD Signed DISCHARGE SUMMARY Observed: 03/09/2018 Status: F Source: AGUILAR 3:24 PM [facility] REPOSITORY [facility] Medical Records Department [address] [place] [address] Discharge Summary 03/09/18 1404 MR#: [id number] Acct: [id number] Name: SAMI CAMPUZANO Rep #: [id number] : 1955 62 From: Shannon Walter DEPOSITION OPERATORKyC PCP: Nehal Vu MD Status: DIS SASKIA Y Location: [place] [address] <Shannon Walter - Last Filed: 03/09/18 14:14> Discharge Date and Diagnosis Date of Admission: 03/08/18 Date of Discharge: 03/09/18 - Primary Discharge Diagnosis Active and Suspected Problems (Last Reviewed 03/09/18 @ 04:30 by Wade Cortez MD) 1. NSTEMI, cardiac catheterization without CAD 2. Palpitations 3. Near syncope 4. Epigastric discomfort 5. Mild AAA Hospital Course and Treatment Imaging Results: Diagnostic Data Chest X-Ray 03/08/18 18:25 IMPRESSION: Normal x-ray examination of the chest. Electronically Signed: Orlin Trejo DO at 19:09 EST Tel [phone], Service support , Dr. Thrasher- Cardiology Operations: None Procedures: 2-D Echocardiogram, Cardiac catheterization Summary of Care Provided: The patient is a 62 year old F who presents the emergency room with near syncope, palpitations, epigastric discomfort. She has no prior past medical history. Patient underwent cardiac catheterization due to NSTEMI. Cardiac cath showed normal coronary arteries. LVEF 65%. Echocardiogram showed an EF of 65%, mild mitral valve insufficiency, RVSP estimated to be 23 mmHg. Telemetry without arrhythmia during admission. Patient will be started on low-dose beta-kenrick, metoprolol 12.5 mg p.o. daily for palpitations. She will be discharged on 30-day event monitor. Lipid panel within normal limits. Patient had abdominal ultrasound due to palpable abdominal aorta. Abdominal ultrasound showed aorta measuring 2.2 cm. Patient will be referred to Dr. Smith for routine monitoring. Follow-up with Dr. Thrasher as outpatient. Patient denies further dizziness, lightheadedness. Denies further palpitations. General: Alert, Oriented x3, Cooperative HEENT: Atraumatic, PERRLA, EOMI, Normocephalic Neck: Supple, No JVD, Negative Carotid Bruits Lungs: Clear to auscultation, Normal air movement Cardiovascular: No murmurs, mild bradycardic, normal S1, normal S2 Abdomen: Bowel Sounds Present, Soft, Non Tender Extremities: No edema, Capillary Refill Less than 3 Seconds Skin: No rashes, No breakdown Musculoskeletal: No Tenderness to Palpation of Joints or Extremities Neurological: Cranial nerves II-XII grossly intact Psych/Mental Status: Normal Affect, Appropriate Patient seen and examined prior to discharge. Physical assessment as noted above. Patient stable for discharge home with the follow-up recommendations as noted above. The patient was seen by JEANNINE Sibley under the supervision of Dr. Marcial. - Physical Exam Vital Signs Temp Pulse Resp BP Pulse Ox 99.0 F 58 L 18 107/53 L 98 03/09/18 13:20 03/09/18 13:20 03/09/18 13:20 03/09/18 13:20 03/09/18 13:20 Oxygen Delivery Method Room Air Weight: 132 lb 15.02 oz Body Mass Index (BMI) 22.8 Intake and Output for Last 24 Hours Intake Total 450 / 450 1605 / 1605 Balance 450 / 450 1605 / 1605 Laboratory Tests Past 24 Hrs WBC 5.5 RBC 4.82 Hgb 13.5 Hct 41.8 MCV 86.7 MCH 28.0 MCHC 32.3 RDW 13.4 RDW Differential 41.9 WBC 4.8 RBC 4.98 Hgb 13.6 Hct 42.8 MCV 85.9 MCH 27.3 MCHC 31.8 L Discharge Diet: No Restrictions Discharge Activity: - - Follow post-cath instructions. Call your doctor if you observe: Shortness of breath, Dizziness, Fainting spells, Chest pain Home Medications: Medications to take at Discharge Multivitamin [Daily Multiple Vitamin] 1 each PO DAILY 03/08/18 Metoprolol Tartrate 12.5 mg PO DAILY #30 tablet 03/09/18 Following Prescrptions Were Given to Patient: Metoprolol Tartrate 12.5 mg PO DAILY #30 tablet Other Amb Orders: 30-Day Event Recorder [[facility]] Location: None Selected Primary Care Physician: Nehal Vu MD [Primary Care Provider] - Please follow up with your Primary Care Physician in: 1 Week Please Follow Up With: Emerson Thrasher MD When: Office to call for appointment Please Follow Up With: Pb Smith MD When: 4-6 Weeks, establish for routine monitoring of mild AAA Disposition: Home Minutes spent on discharge:: 35 Patient Condition:: Stable Medical Necessity - Tobacco Use Smoking Status: Never smoker Tobacco Use: Non-smoker Meaningful Use Info Meaningful Use Diagnoses (Choose all that apply): None applicable <AniketAlejandra E - Last Filed: 03/09/18 15:24> Hospital Course and Treatment Imaging Results: 03/09/18 08:10 Echo Complete [ECHO] Routine Summary of Care Provided: Hospitalist note: Discharge summary above physical examination reviewed and I agree with the above discharge plan. Patient was admitted for irritation and chest pain, found to have acute non-ST elevation MA. Her EKG revealed no acute ischemic changes and without evidence of acute cardiac arrhythmias. Her troponin was elevated and maximum troponin was 0.864. Her other routine blood work was unremarkable. Sh was normal. Lipid profile was normal. She underwent cardiac catheterization that revealed angiographically normal coronary arteries without evidence of significant CAD. There was no etiology identified for this elevated cardiac enzymes but could be due to some form of cardiac arrhythmia. Telemetry reveals no evidence of cardiac arrhythmias. Cardiology recommended 30-day event monitor. Patient discharged home in a stable medical condition, discharged on metoprolol 12.5 mg p.o. daily, plan for 30-day event monitor, follow-up with cardiology as outpatient, follow-up with PCP in 1 week. - Physical Exam General: Alert, Oriented x3, Cooperative, No apparent distress HEENT: Atraumatic, PERRLA, EOMI, Normocephalic Oral: Moist Mucosa, No Gingival or Mucosal Lesions/ Ulcerations Neck: Supple, No JVD, Negative Carotid Bruits, Trachea Midline, Thyroid Normal Size and Texture Lungs: Clear to auscultation, No rhonchi, No wheeze, No rales, Diminished Cardiovascular: Regular rate, Regular Rhythm, Normal S1, Normal S2, No murmurs, PMI Normal Abdomen: Bowel Sounds Present, Soft, Non Tender, Non-Distended, No Hepato-splenomegaly Extremities: No clubbing, No cyanosis, No edema Skin: No rashes, No breakdown Lymphatic: No Cervical, Supraclavicular, or Inguinal Adenopathy Neurological: Cranial nerves II-XII grossly intact, Motor Exam 5/5 strength throughout Psych/Mental Status: Normal Affect, Appropriate, Alert and oriented to time, place, person, mood and affect Vital Signs stable. - Physical Exam Vital Signs Temp Pulse Resp BP Pulse Ox 98.6 F 59 L 15 99/49 L 96 03/09/18 14:20 03/09/18 14:20 03/09/18 14:20 03/09/18 14:20 03/09/18 14:20 Oxygen Delivery Method Room Air Weight: 132 lb 15.02 oz Body Mass Index (BMI) 22.8 Intake and Output for Last 24 Hours Intake Total 450 / 450 1605 / 1605 Balance 450 / 450 1605 / 1605 Laboratory Tests Past 24 Hrs WBC 5.5 RBC 4.82 Hgb 13.5 Hct 41.8 MCV 86.7 MCH 28.0 MCHC 32.3 RDW 13.4 RDW Differential 41.9 WBC 4.8 RBC 4.98 Hgb 13.6 Hct 42.8 MCV 85.9 MCH 27.3 MCHC 31.8 L Discharge Diet: No Restrictions Disposition: Home Minutes spent on discharge:: 25 Patient Condition:: Stable Meaningful Use Info Meaningful Use Diagnoses (Choose all that apply): None applicable Code Visit OBSV E AND M: 23118 Observation care discharge 03/09/18 1384 <Electronically signed by Shannon Jose Angel DEPOSITION OPERATOR-C> Date Shannon Walter NP-C 03/09/18 1524<Electronically signed by Alejandra Marcial MD> Cosigner Signature (if applicable): Date Alejandra Marcial MD CC: DEPOSITION OPERATOR-C Shannon Walter; Nehal Vu MD; Alejandra Marcial Signed DISCHARGE INSTRUCTION Observed: 03/09/2018 Status: F Source: [facility] 2:04 PM [facility] REPOSITORY [facility] Medical Records Department [address] [place] [address] Instructions for Home/Discharge Instructions 03/09/18 1401 MR#: [id number] Acct: [id number] Name: SAMI CAMPUZANO Priscila Rep #: [id number] : 1955 62 From: Shannon Walter NP-C PCP: Nehal Vu MD Status: ADM SASKIA - Discharge Diagnoses Current Active Problems: Current Active and Chronic Problems (Last Reviewed 03/09/18 @ 04:30 by Wade Cortez MD) Syncope (Acute) Epigastric pain (Acute) Palpitations (Acute) Abnormal cardiac enzyme level (Acute) Palpable abdominal aorta (Acute) You will use the following diet at home:: No restrictions Discharge Activity: - - Follow post-cath instructions. Call your doctor if you observe: Shortness of breath, Dizziness, Fainting spells, Chest pain Allergies/Adverse Reactions: Allergies No Known Allergies Allergy (Verified 03/08/18 18:15) Medications to take at Discharge Multivitamin [Daily Multiple Vitamin] 1 each PO DAILY 03/08/18 Metoprolol Tartrate 12.5 mg PO DAILY #30 tablet 03/09/18 The following prescriptions were given: Metoprolol Tartrate 12.5 mg PO DAILY #30 tablet Orders to be completed after discharge: 30-Day Event Recorder [[facility]] Location: None Selected Primary Care Physician: Nehal Vu MD [Primary Care Provider] - Please follow up with your Primary Care Physician in: 1 Week Test Results: Test results from this visit will be discussed in further detail at your follow-up appointment, if applicable. Please Follow Up With: Emerson Thrasher MD When: Office to call for appointment Please Follow Up With: Pb Smith MD When: 4-6 Weeks, establish for routine monitoring of mild AAA Proposed Discharge Date: 03/09/18 03/09/18 1404 <Electronically signed by Shannon SANCHEZ> Date Shannon SANCHEZ CC: Nehal Vu MD; Emerson Thrasher MD ECHOCARDIOGRAM COMPLETE Observed: 03/09/2018 Status: F Source: [place] 9:21 AM [facility] REPOSITORY [facility] Cardiovascular Services [address] [place] [id number] Echo Complete 03/09/18 0823 MR#: [id number] Acct: [id number] Name: SAMI CAMPUZANO Rep #: [id number] : 1955 62 From: Emerson Thrasher MD Attending Dr: Alejandra Marcial Status: ADM SASKIA Ordering Dr: Emerson Thrasher MD Date: 03/09/18 Location: [facility] Sex: F C Admitted: 03/08/18 Reason For Study: Chest Pain Procedure This was a 2D Doppler, Color Flow transthoracic echocardiogram. The exam was of adequate technical quality. Exam performed portable in patient room. Left Ventricle Normal LV size. Apical false tendon noted. Left ventricular systolic function is normal. The estimated ejection fraction is 65 %. No evidence for diastolic dysfunction. No regional wall motion abnormalities noted. Right Ventricle Normal RV size. Normal systolic function. Atria Normal left atrium. Normal right atrium. No doppler evidence for ASD. Mitral Valve There is no mitral annular calcification. Normal mitral valve. Mild (1+) eccentric mitral valve insufficiency. Tricuspid Valve Normal tricuspid valve. Trivial tricuspid valve insufficiency. Right ventricular systolic pressure estimated to be 23 mmHg. Aortic Valve Trisinus/trileaflet aortic valve. Normal aortic valve. Pulmonic Valve The pulmonic valve is not well visualized. Great Vessels Normal sized aortic root. Pericardium/Pleural Trivial pericardial effusion. There are no echocardiographic indications of cardiac tamponade. MMode/2D Measurements AND Calculations LVIDd: 4.8 cm IVSd: 0.86 cm Ao root diam: 2.9 cm LVIDs: 2.6 cm LVPWd: 0.79 cm LA dimension: 3.2 cm RVDd: 3.0 cm FS: 46.1 % LAV(MOD-bp): 28.7 ml LVAd ap4: 24.6 cm2 SV(MOD-sp4): 56.2 ml LAV(MOD-bp) Indexed: 17.9 ml/m2 EDV(MOD-sp4): 74.7 ml LAV(MOD-sp2): 26.3 ml EDV(sp4-el): 73.5 ml LAV(MOD-sp4): 24.6 ml LVAs ap4: 10.8 cm2 ESV(MOD-sp4): 18.4 ml ESV(sp4-el): 18.9 ml EF(MOD-sp4): 75.3 % EF(sp4-el): 74.3 % SV(sp4-el): 54.6 ml LA A4 area: 11.9 cm2 RA A4 area: 13.1 cm2 Doppler Measurements AND Calculations MV E max grupo: 82.5 cm/sec Lat Peak E' Grupo: 11.2 cm/sec Med Peak E' Grupo: 10.1 cm/sec MV A max grupo: 56.6 cm/sec E/E' lat: 7.4 E/E' med: 8.1 MV E/A: 1.5 Ao V2 max: 135.1 cm/sec LV V1 max: 111.1 cm/sec PA V2 max: 90.6 cm/sec Ao max P.3 mmHg LV V1 max P.9 mmHg Ao V2 mean: 94.6 cm/sec Ao mean P.0 mmHg Ao V2 VTI: 31.9 cm TR max grupo: 225.5 cm/sec TR max P.3 mmHg Interpretation Summary Left ventricular systolic function is normal. The estimated ejection fraction is 65 %. Apical false tendon noted. Mild (1+) eccentric mitral valve insufficiency. Trivial tricuspid valve insufficiency. Trivial pericardial effusion. There are no echocardiographic indications of cardiac tamponade. Right ventricular systolic pressure estimated to be 23 mmHg. No evidence for diastolic dysfunction. Ordering Physician: Emerson Thrasher Referring Physician: Nehal Vu Performed By: Beth Silva, SARAHCS, RVT 03/09/18920 Date Emerson Thrasher MD CC: Nehal Vu MD; Alejandra Marcial; Emerson Thrasher MD Date Dictated: 03/09/18822 Date Transcribed: 03/09/18920 Chief Concierge: Signed CONSULTATION Observed: 03/09/2018 Status: F Source: [place] 8:27 AM [facility] REPOSITORY [facility] Medical Records Department [address] [place] [address] Consultation 03/09/18811 MR#: [id number] Acct: [id number] Name: SAMI CAMPUZANO Rep #: [id number] : 1955 62 From: Emerson Thrasher MD PCP: Nehal Vu MD Status: ADM SASKIA Y Location: [place] [address] Problem List (1) Palpitations Status: Acute (2) Syncope Status: Acute (3) Epigastric pain Status: Acute (4) Abnormal cardiac enzyme level Status: Acute (5) Palpable abdominal aorta Status: Acute Reason for Consult Date of Consultation: 03/09/18 History of Present Illness: The patient is a 62 year old white female who presents for evaluation of palpitations, near syncope, epigastric discomfort, and findings of abnormal cardiac enzymes and a palpable abdominal aorta. The patient states that for quite some time now she has been having episodes of palpitations and/or racing heart rate sensations. Yesterday she had an event that lasted for approximately 2 hours. Following her symptoms and she subsequently noted she felt somewhat weak and believe she went to the floor but did not necessarily lose consciousness. She also noted epigastric discomfort. Based upon those findings she presented to the [facility] emergency department for evaluation. She was subsequently noted to be in sinus rhythm. She had a abnormal troponin I level. Her ECG suggested sinus rhythm with nonspecific ST segment abnormality which was discussed with Dr. Ray of interventional cardiology of [facility] did not think her findings were compatible with a STEMI event. Thus she was placed in the PCU for further evaluation and care. She states she has been resting comfortably other than waxing and waning epigastric discomfort. Her cardiac rhythm has been followed and has remained sinus rhythm. Her troponin I levels elevated somewhat and then began to decrease. Her ECG has been repeated with no significant changes. She also had a d-dimer level reported as negative. She states in the past she was diagnosed with prediabetes . She notes she altered her lifestyle with respect to her diet and her activity level. She lost approximately 40 pounds of weight. She notes her metabolic profile improved. She did not require any ongoing evaluation or medication. She states she was also diagnosed with diverticular disease recently which was treated with antibiotics. She does not recall requiring additional evaluation or therapy for that issue. She notes she has a family history of heart disease in her father and a sister who has a history of a abnormal heartbeat . She recently returned from a trip to [place]. Thus the d-dimer was performed which was reported as negative indicating less likely a PE was the etiology for her symptoms and/or events. She states she has never had to go through any cardiovascular evaluation in the past. She has always attributed her palpitations to anxiety. She denies any history of orthopnea, PND, or peripheral pitting edema. She does not believe she actually lost consciousness during her event yesterday. [] Past Medical History Allergies/Adverse Reactions: Allergies No Known Allergies Allergy (Verified 03/08/18 18:15) Home Medications: Ambulatory Orders Medication Instructions Recorded Multivitamin [Daily Multiple 1 each PO DAILY 03/08/18 Vitamin] Surgical History: cholecystectomy, - - R knee surgery - *Family History Paternal Family History: Family History (Last Reviewed 03/09/18 @ 04:30 by Wade Cortez MD) Father Heart problem Brother Diabetes Brother Diabetes Sister Diabetes Lives: Spouse/ Significant Other Smoking Status: Never smoker Tobacco Use: Non-smoker Alcohol: None Review of Systems - Review of Systems General: Denies: Fever, Night Sweats, Fatigue Cardiovascular: Reports: Palpitations, Near Syncope. Denies: Chest Discomfort, Shortness of Breath, Orthopnea, PND, Peripheral Edema, Lightheadedness, Dizziness, Syncope Respiratory: Denies: Cough, Sputum Production, Hemoptysis Gastrointestinal: Reports: Epigastric Discomfort. Denies: Hematemesis, Hematochezia, Melena Genitourinary: Denies: Dysuria, Hematuria Skin: Denies: Rash Subjectve: This is a thin 62-year-old white female who appears resting comfortably at the moment in no acute distress. Objective: Vital Signs Temp Pulse Resp BP Pulse Ox 98.2 F 52 L 10 L 100/66 98 03/09/18 05:58 03/09/18 05:58 03/09/18 05:58 03/09/18 05:58 03/09/18 07:30 Oxygen Delivery Method Room Air Weight: 132 lb 15.02 oz Body Mass Index (BMI) 22.8 Intake and Output for Last 24 Hours Intake Total 450 / 450 605 / 605 Balance 450 / 450 605 / 605 General: Awake, Alert, Oriented x 3, Cooperative, No Acute Distress HEENT: Atraumatic, Normocephalic, PERRL, EOMI, Sclera Non Icteric Oral: Moist Mucosa Neck: Supple, Good ROM, No JVD Lungs: Clear to auscultation Cardiovascular: Regular Rhythm, Normal S1, Normal S2 Vascular: No Carotid Bruits, Palpable Abdominal Aorta Abdomen: Bowel Sounds Present, Soft, Non Tender Extremities: No Cyanosis, No Clubbing, No edema Neurological: No Focal Motor or Sensory Deficit Psych/Mental Status: Anxious 03/08/18 18:15: WBC 5.5, RBC 4.82, Hgb 13.5, Hct 41.8, MCV 86.7, MCH 28.0, MCHC 32.3, RDW 13.4, RDW Differential 41.9, Plt Count 196, MPV 10.7, Immature Gran % (Auto) 0.200, Neut % (Auto) 52.1, Lymph % (Auto) 35.7, Menard % (Auto) 9.8, Eos % (Auto) 1.8, Baso % (Auto) 0.4, Absolute Neuts (auto) 2.9, Total Counted Not Reportable 03/08/18 18:15: Sodium 139, Potassium 3.6, Chloride 103, Carbon Dioxide 30.0, Anion Gap 6, BUN 18, Creatinine 0.64, Est GFR (MDRD) Af Amer 121, Est GFR (MDRD) Non-Af 100, BUN/Creatinine Ratio 28.0 H, Glucose 98, Calcium 8.8, Troponin I 0.322 H 03/08/18 18:15: D-Dimer Quant (PE/DVT) < 0.27 L 03/08/18 18:15: PT 13.6, INR 1.0, APTT 26.4 03/08/18 18:15: Hemoglobin A1c 5.8 03/08/18 21:20: Troponin I 0.864 H* 03/09/18 00:58: Troponin I 0.708 H* 03/09/18 05:10: Sodium 143, Potassium 3.7, Chloride 108 H, Carbon Dioxide 27.0, Anion Gap 8, BUN 18, Creatinine 0.58, Est GFR (MDRD) Af Amer 137, Est GFR (MDRD) Non-Af 113, BUN/Creatinine Ratio 31.1 H, Glucose 82, Calcium 8.4 L, Triglycerides 49, Cholesterol 182, LDL Cholesterol 110, VLDL Cholesterol 10, HDL Cholesterol 62 03/09/18 05:10: WBC 4.8, RBC 4.98, Hgb 13.6, Hct 42.8, MCV 85.9, MCH 27.3, MCHC 31.8 L, RDW 13.4, RDW Differential 42.1, Plt Count 187, MPV 10.3 Rhythm: Sinus rhythm EKG: This rhythm; nonspecific ST segment abnormality CXR: Preliminary evaluation: No acute cardiopulmonary disease process Assessment/Plan 1. Palpitations The patient has been experiencing palpitations on and off for quite some time. She states she is always attributed this to anxiety. However there is concern that she may have been experiencing some form of cardiac dysrhythmia. At the present time the patient will continue to be monitored. Based upon her other symptoms and/or objective findings she will continue cardiovascular evaluation care. This will include an echocardiogram to evaluate her cardiac anatomy and function. It will also include a diagnostic cardiac catheterization to evaluate her coronary anatomy. Depending upon her findings she may need additional cardiovascular medical management and/or diagnostic studies/intervention, etc. 2. Near syncope/syncope The patient states that she does not believe she actually lost consciousness during her of the event. It is unclear whether her event was related to a cardiac dysrhythmia and subsequent hemodynamic changes. If the patient did have a cardiac dysrhythmia it could have altered her cardiac enzyme profile as well. Thus at the present time the patient continues to be monitored. Her cardiac rhythm and enzymes and ECG have been followed. She will undergo evaluation with an echocardiogram and a diagnostic cardiac catheterization as noted above. 3. Epigastric discomfort Patient complains of intermittent epigastric discomfort. It is unclear whether this is a cardiovascular symptom versus a noncardiac symptom. However, based upon her other symptoms and objective findings especially with respect to her abnormal cardiac enzyme profile she will be recommended for further evaluation with diagnostic cardiac catheterization. Also based upon her palpable abdominal aorta she will be recommended for an abdominal aorta ultrasound to evaluate for any evidence of aneurysmal changes. 4. Abnormal cardiac enzymes In the patient has had abnormal cardiac enzymes. The technically were in the abnormal range potentially compatible with a non-ST segment elevation MA. Again it would be unclear whether this is a primary cardiovascular event versus a secondary event potentially brought out by a cardiac dysrhythmia. Thus she will continue to be monitored and undergo evaluation as noted above. She will continue medical management as deemed appropriate. 5. Palpable abdominal aorta The palpable abdominal aorta may be secondary to her thin body habitus. However it is also unclear as to whether or not she could have any aneurysmal dilatation. Thus she will undergo evaluation with abdominal ultrasound as well. Comment: The above has been discussed with the patient, the [facility] emergency department staff, and her primary care physician Dr. Vu. This note was generated with [employer] dictation software. It may contain incorrect words, spelling, and punctuation that were not noted in checking the note before signing. 03/09/18 0827 <Electronically signed by Emerson Thrasher MD> Date Emerson Thrasher MD Cosigner Signature (if applicable): Date CC: Nehal Vu MD; Emerson Thrasher MD Signed CBC-COMPLETE BLOOD CNT Collected: 03/09/2018 Status: F Source: [place] NO DIFF 5:10 AM [facility] REPOSITORY TYPE CODE TESTS RESULT OUT OF RANGE REFERENCE UNITS LAB L100.1000 4.4-11.0 K/mm3 Normal WBC 4.8 LAB L100.1200 4.2-5.4 M/mm3 Normal RBC 4.98 LAB L100.1300 12.0-15.0 g/dl Normal HGB 13.6 LAB L100.1400 37-47 % Normal HCT 42.8 LAB L100.1500 81-99 fL Normal MCV 85.9 LAB L100.1600 27.0-32.0 pg Normal MCH 27.3 LAB L100.1700 32-36 g/gl Low MCHC 31.8 LAB L100.1810 11.6-14.6 % Normal RDW CV 13.4 LAB L100.1820 35.1-43.9 fl Normal RDW SD 42.1 LAB L100.1900 150-450 K/mm3 Normal PLT 187 LAB L100.2000 6.2-12.0 fl Normal MPV 10.3 Performed By: #### L100.0500 #### [facility] [address] [place], [address] BASIC METABOLIC Collected: 03/09/2018 Status: F Source: [place] PROFILE (BMP) 5:10 AM [facility] REPOSITORY TYPE CODE TESTS RESULT OUT OF RANGE REFERENCE UNITS LAB L501.0100 74-106 mg/dL Normal GLU 82 Result Comment: Please note revised GLUCOSE reference range effective 2017. LAB L501.1000 7-18 mg/dL Normal BUN 18 LAB L501.1100 0.55-1.02 mg/dL Normal CREAT,SERUM 0.58 Result Comment: The validity of the calculated GFR AND GFRAA in patients over 70 years has not been determined. Clinical correlation is essential. LAB L501.1110 >60 mL/min Normal EST GFR 113 Result Comment: Non- GFR Calc LAB L501.1115 >60 mL/min Normal EST GFR - AA 137 Result Comment: GFR Calc LAB L501.1255 ml/min Normal Estimated CRCL 89.07 LAB L501.1300 10-20 RATIO High BUN/CRE 31.1 LAB L501.2200 8.5-10 mg/dL Low .1 CA 8.4 LAB L501.5300 136-14 mmol/L Normal 5 NA 143 LAB L501.5600 3.5-5. mmol/L Normal 1 K 3.7 LAB L501.5900 98-107 mmol/L High CL 108 LAB L501.6100 21.0-3 mmol/L Normal 2.0 CO2 27.0 LAB L501.6200 5-15 Normal GAP 8 Performed By: #### L500.2500, L500.4100, L501.9520 #### [place] [facility] [address] [place], [place], [id number] LIPID PROFILE Collected: 03/09/2018 Status: F Source: EJ 5:10 AM [facility] REPOSITORY TYPE CODE TESTS RESULT OUT OF RANGE REFERENCE UNITS LAB L501.4900 200 mg/dL Normal CHOL 182 Result Comment: <200 mg/dL Desirable 200-240 mg/dL Borderline >240 mg/dL High Risk LAB L501.5000 mg/dL Normal TRIG 49 Result Comment: The drugs N-Acetylcysteine and Metamizole may falsely depress this assay. Serum Triglycerides Reference Interval Normal <150 mg/dL Borderline high 150 - 199 mg/dL High 200 - 499 mg/dL Very High > or = 500 mg/dL LAB L501.6400 mg/dL Normal HDL 62 Result Comment: The drugs N-Acetylcysteine and Metamizole may falsely depress this assay. Reference Range HDL <40 mg/dL Low HDL Cholesterol HDL >or= 60 mg/dL High HDL Cholesterol LAB L501.6500 0-130 mg/dL Normal LDL 110 LAB L501.6600 5-40 mg/dL Normal VLDL 10 Performed By: #### L500.2500, L500.4100, L501.9520 #### [facility] [address] [place], [address] THYROID STIM HORMONE Collected: 03/09/2018 Status: F Source: EJ (TSH) 5:10 AM [facility] REPOSITORY TYPE CODE TESTS RESULT OUT OF RANGE REFERENCE UNITS LAB L501.9520 0.358-3.74 uIU/mL Normal TSH 1.28 Performed By: #### L500.2500, L500.4100, L501.9520 #### [facility] [address] [place], [place], [id number] TROPONIN-I Collected: 03/09/2018 Status: F Source: EJ 12:58 AM [facility] REPOSITORY Order Comment: 'TROP' Serial specimen #1, #2 or #3: 3 TYPE CODE TESTS RESULT OUT OF RANGE REFERENCE UNITS LAB L501.4010 <0.045 ng/mL High alert 0.708 TROPONIN-I Result Comment: Critical Result(s) Called at: 02:13:16 03/09/2018 by: MEGGAN EVERETT to Dianne Juarez TROPONIN-I EXPECTED VALUES <0.045 Negative 0.045 - 0.590 Consistent with Cardiac Damage > OR = 0.600 Critical Value Not every elevated troponin is indicative of MA. These values should be used with clinical judgement in examining the patient's clinical picture for diagnosis. To establish a diagnosis of MA versus myocardial injury, there must be a demonstrated rise and/or fall in the troponin values, in addition to ischemic symptoms, EKG changes, new regional wall motion abnormality, and/or angiographical evidence. PLEASE NOTE: REFERENCE RANGES EDITED 17 Performed By: #### L501.4010 #### [facility] [address] [place], [address] EMERGENCY DEPARTMENT Observed: 03/08/2018 Status: F Source: AGUILAR SUMMARY 11:04 PM [facility] REPOSITORY [facility] Medical Records Department [address] [place] [address] Emergency Department Summary 03/08/18 1829 MR#: [id number] Acct: [id number] Name: SAMI CAMPUZANO Rep #: [id number] : 1955 62 From: Reggie Clark MD PCP: Nehal Vu MD Status: ADM SASKIA - ER Visit Summary Date of Service: 03/08/18 Chief Complaint: Chest pain History of Present Illness: The patient is a 62 F dyspnea past medical history. Currently on no medications. Says around 1030 today she felt like her heart was racing. About 430s afternoon she started getting low chest pain that was also epigastric. She said she felt like she might pass out but did not. Says currently the pain is gone. She denies any shortness of breath she did have nausea and vomiting x1 and was diaphoretic. Patient states that she works out 5 times a week walking 3 miles and has had no problems at all recently. She is never had a cardiac cath or stress test. She is a non-smoker. She did recently travel to [place] and just returned within the last week. She denies any hemoptysis. She denies any leg pain or swelling. No pleuritic nature to her discomfort. She denies any recent exertional chest pain or exertional shortness of breath. This occurred today at rest. Physical Examination: Middle-aged female. Initial vital signs are stable and afebrile. Pulse ox 9% on room air no signs of hypoxia. H EENT exam unremarkable. Neck nontender no JVD. Lungs clear to auscultation bilaterally. Heart regular rate and rhythm rate about 60 no murmur. Chest wall nontender. Abdomen soft and nontender. Normal bowel sounds no peritoneal signs. Patient is moving all 4 extremities. Neurovascular intact. She is equal symmetrical olive grower strength. She has equal symmetrical radial pulses. Calves are nontender without edema or cords. Neurologically she is awake and alert with no focal motor deficits. Test Results: Initial EKG done The patient is currently pain-free is a sinus bradycardia rate of 56. She does have minimal concave elevation in leads II, III and aVF with upsloping. Leads V3, 4 and V5 may have hyper acute T waves. Repeat EKG was unchanged from prior. It was a normal sinus rhythm at rate of 60. There are very subtle changes inferiorly. At this time EKG is the same as the first. And again we do not have an old EKG available for comparison. Again currently the patient has been pain-free while in the ER. CBC is normal. BMP is normal with a normal creatinine and gap. D-dimer is less than 0.27. Chest x-ray is normal read by myself with a normal cardiac silhouette and mediastinum. Troponin is slightly elevated at 0.322. Emergency Department Course and Treatment: Currently patient is pain-free. She will be given 325 mg of aspirin. She is undergoing a cardiac workup. Due to her recent travel I will also obtain a d-dimer. Clinically it does not sound like a PE. Treatment Plan: I long discussion the patient and her . She understands she is going to be admitted. She has been pain-free while in the ER. I am going to do a second troponin on her before she goes to the PCU. I have already spoken to the mill order scheduler Dr. Ray. I also spoke to his primary care physician Dr. Vu. I will speak to Dr. Thrasher on-call for cardiology tonight and also the hospitalist. Disposition: Admission Impression: Acute chest pain Abnormal troponin with subtle EKG changes. This note was generated with [employer] dictation software. It may contain incorrect words, spelling, and punctuation that were not noted in review of the chart prior to signing ED Disposition - Plan for ED Patient: Chief Complaint: Chest Pain Referrals: Nehal Vu MD [Primary Care Provider] - What to do if you have Problems For any increased pain, shortness of breath, bleeding, nausea or vomiting, chest pain, or any unexpected problems, contact your Primary Care Provider. Call [facility] ([phone]) or report to the closest Emergency Room. Call 911 if necessary. 03/08/18 2304 <Electronically signed by Reggie Clark MD> Date Reggie Clark MD Cosigner Signature (If Indicated): Date CC: Nehal Vu MD TROPONIN-I Collected: 03/08/2018 Status: F Source: EJ 9:20 PM [facility] REPOSITORY Order Comment: 'TROP' Serial specimen #1, #2 or #3: 2 Has pt arrived? Y TYPE CODE TESTS RESULT OUT OF RANGE REFERENCE UNITS LAB L501.4010 <0.045 ng/mL High alert 0.864 TROPONIN-I Result Comment: Critical Result(s) Called at: 22:17:19 03/08/2018 by: Johanny Art TROPONIN-I EXPECTED VALUES <0.045 Negative 0.045 - 0.590 Consistent with Cardiac Damage > OR = 0.600 Critical Value Not every elevated troponin is indicative of MA. These values should be used with clinical judgement in examining the patient's clinical picture for diagnosis. To establish a diagnosis of MA versus myocardial injury, there must be a demonstrated rise and/or fall in the troponin values, in addition to ischemic symptoms, EKG changes, new regional wall motion abnormality, and/or angiographical evidence. PLEASE NOTE: REFERENCE RANGES EDITED 17 Performed By: #### L501.4010 #### [facility] [address] [place], [address] CHEST 1 VIEW Observed: 03/08/2018 Status: F Source: EJ (PORTABLE) 6:17 PM [facility] REPOSITORY [facility] Imaging Services [address] [place] [address] Chest 1 View (Portable) MR#: [id number] Acct: [id number] Name: SAMI CAMPUZANO Rep #: [id number] : 1955 F 62 From: Orlin Trejo DO PCP: Nehal Vu MD Status: REG ER Study: Chest 1 View (Portable) Date of Exam: 03/08/18 Exam# [id number] Ordering Dr: Reggie Clark MD STUDY: X-RAY CHEST REASON FOR EXAM: Female, 62 years old. Chest pain TECHNIQUE: Single frontal view COMPARISON: None. FINDINGS: The lungs are clear and expanded. There is no demonstrated pleural abnormality. Normal size heart. Normal mediastinum [...] Orlin Trejo DO at 19:09 EST Tel [phone], Service support , CC: Nehal Vu MD; Reggie Clark MD Chief Concierge: Signed CBC W/DIFF, AUTOMATED Collected: 03/08/2018 Status: F Source: AGUILAR 6:15 PM [facility] REPOSITORY TYPE CODE TESTS RESULT OUT OF RANGE REFERENCE UNITS LAB L100.1000 4.4-11.0 K/mm3 Normal WBC 5.5 LAB L100.1200 4.2-5.4 M/mm3 Normal RBC 4.82 LAB L100.1300 12.0-15.0 g/dl Normal HGB 13.5 LAB L100.1400 37-47 % Normal HCT 41.8 LAB L100.1500 81-99 fL Normal MCV 86.7 LAB L100.1600 27.0-32.0 pg Normal MCH 28.0 LAB L100.1700 32-36 g/gl Normal MCHC 32.3 LAB L100.1810 11.6-14.6 % Normal RDW CV 13.4 LAB L100.1820 35.1-43.9 fl Normal RDW SD 41.9 LAB L100.1900 150-450 K/mm3 Normal PLT 196 LAB L100.2000 6.2-12.0 fl Normal MPV 10.7 LAB L100.2100 47-70 % Normal NEUT% 52.1 LAB L100.2200 19-41 % Normal LY% 35.7 LAB L100.2300 0-10 % Normal MONO% 9.8 LAB L100.2400 0-5 % Normal EO% 1.8 LAB L100.2500 0-1 % Normal BASO% 0.4 LAB L100.2550 0.0-0.9 % Normal IM GRAN % 0.200 Result Comment: IG% - Immature Granulocytes (promyelocytes, myelocytes and metamyelocytes) > 1% indicates that a LEFT SHIFT is Present. LAB L100.2620 2.0-7.7 X10 3/uL Normal Absolute Neut 2.9 LAB L100.2720 0.83-4.51 X10 3/ul Normal Absolute Lymph 1.97 Performed By: #### L100.0100 #### [facility] [address] [place], [address] BASIC METABOLIC Collected: 03/08/2018 Status: F Source: EJ PROFILE (BMP) 6:15 PM [facility] REPOSITORY TYPE CODE TESTS RESULT OUT OF RANGE REFERENCE UNITS LAB L501.0100 74-106 mg/dL Normal GLU 98 Result Comment: Please note revised GLUCOSE reference range effective 2017. LAB L501.1000 7-18 mg/dL Normal BUN 18 LAB L501.1100 0.55-1.02 mg/dL Normal CREAT,SERUM 0.64 Result Comment: The validity of the calculated GFR AND GFRAA in patients over 70 years has not been determined. Clinical correlation is essential. LAB L501.1110 >60 mL/min Normal EST GFR 100 Result Comment: Non- GFR Calc LAB L501.1115 >60 mL/min Normal EST GFR - AA 121 Result Comment: GFR Calc LAB L501.1255 ml/min Normal Estimated CRCL 80.72 LAB L501.1300 10-20 RATIO High BUN/CRE 28.0 LAB L501.2200 8.5-10 mg/dL Normal .1 CA 8.8 LAB L501.5300 136-14 mmol/L Normal 5 NA 139 LAB L501.5600 3.5-5. mmol/L Normal 1 K 3.6 LAB L501.5900 98-107 mmol/L Normal CL 103 LAB L501.6100 21.0-3 mmol/L Normal 2.0 CO2 30.0 LAB L501.6200 5-15 Normal GAP 6 Performed By: #### L500.2500, L501.4010 #### [facility] [address] [place], [place], [id number] TROPONIN-I Collected: 03/08/2018 Status: F Source: AGUILAR 6:15 PM [facility] REPOSITORY TYPE CODE TESTS RESULT OUT OF RANGE REFERENCE UNITS LAB L501.4010 <0.045 ng/mL High 0.322 TROPONIN-I Result Comment: TROPONIN-I EXPECTED VALUES <0.045 Negative 0.045 - 0.590 Consistent with Cardiac Damage > OR = 0.600 Critical Value Not every elevated troponin is indicative of MA. These values should be used with clinical judgement in examining the patient's clinical picture for diagnosis. To establish a diagnosis of MA versus myocardial injury, there must be a demonstrated rise and/or fall in the troponin values, in addition to ischemic symptoms, EKG changes, new regional wall motion abnormality, and/or angiographical evidence. PLEASE NOTE: REFERENCE RANGES EDITED 17 Performed By: #### L500.2500, L501.4010 #### [facility] [address] [place], [address] D-DIMER QUANTITATIVE Collected: 03/08/2018 Status: F Source: EJ (DVT/PE) 6:15 PM [facility] REPOSITORY TYPE CODE TESTS RESULT OUT OF RANGE REFERENCE UNITS LAB L300.8000 0.27-0.49 FEU/ug/m Low D-DIMER < 0.27 QUANT Result Comment: NORMAL D-Dimer level (<0.50) indicates no DVT or PE. Performed By: #### L300.8000 #### [facility] [address] [place], [address] PROTHROMBIN TIME W/INR Collected: 03/08/2018 Status: F Source: EJ 6:15 PM [facility] REPOSITORY TYPE CODE TESTS RESULT OUT OF RANGE REFERENCE UNITS LAB L300.4150 11.7-14.9 SECONDS Normal PROTIME 13.6 LAB L300.4200 Normal INR 1.0 Performed By: #### L300.3900, L300.4310 #### [facility] [address] [place], [address] PARTIAL THROMBOPLAST Collected: 03/08/2018 Status: F Source: EJ TIME 6:15 PM [facility] REPOSITORY TYPE CODE TESTS RESULT OUT OF RANGE REFERENCE UNITS LAB L300.4310 24.1-36.2 Seconds Normal PTT 26.4 Performed By: #### L300.3900, L300.4310 #### [facility] [address] [place], [address] HEMOGLOBIN A1C Collected: 03/08/2018 Status: F Source: EJ 6:15 PM [facility] REPOSITORY TYPE CODE TESTS RESULT OUT OF RANGE REFERENCE UNITS LAB L501.9985 4.2-6.3 % Normal HGB A1C 5.8 Performed By: #### L501.9985 #### [facility] [address] [place], [address] CBC W/DIFF, AUTOMATED Collected: 02/03/2018 Status: F Source: EJ 7:45 AM [facility] REPOSITORY TYPE CODE TESTS RESULT OUT OF RANGE REFERENCE UNITS LAB L100.1000 4.4-11.0 K/mm3 Normal WBC 8.5 LAB L100.1200 4.2-5.4 M/mm3 Normal RBC 4.55 LAB L100.1300 12.0-15.0 g/dl Normal HGB 12.5 LAB L100.1400 37-47 % Normal HCT 39.7 LAB L100.1500 81-99 fL Normal MCV 87.3 LAB L100.1600 27.0-32.0 pg Normal MCH 27.5 LAB L100.1700 32-36 g/gl Low MCHC 31.5 LAB L100.1810 11.6-14.6 % Normal RDW CV 13.1 LAB L100.1820 35.1-43.9 fl Normal RDW SD 41.9 LAB L100.1900 150-450 K/mm3 Normal PLT 171 LAB L100.2000 6.2-12.0 fl Normal MPV 10.8 LAB L100.2100 47-70 % High NEUT% 81.2 LAB L100.2200 19-41 % Low LY% 7.8 LAB L100.2300 0-10 % High MONO% 10.8 LAB L100.2400 0-5 % Normal EO% 0.1 LAB L100.2500 0-1 % Normal BASO% 0.1 LAB L100.2550 0.0-0.9 % Normal IM GRAN % 0.000 Result Comment: IG% - Immature Granulocytes (promyelocytes, myelocytes and metamyelocytes) > 1% indicates that a LEFT SHIFT is Present. LAB L100.2620 2.0-7.7 X10 3/uL Normal Absolute Neut 6.9 LAB L100.2720 0.83-4.51 X10 3/ul Low Absolute Lymph 0.66 Performed By: #### L100.0100, L501.2400, L501.2450 #### [facility] [address] [place], [place], [id number] AMYLASE Collected: 02/03/2018 Status: F Source: AGUILAR 7:45 AM [facility] REPOSITORY TYPE CODE TESTS RESULT OUT OF RANGE REFERENCE UNITS LAB L501.2400 25-115 U/L Normal MICHELL 74 Performed By: #### L100.0100, L501.2400, L501.2450 #### [facility] [address] [place], [address] LIPASE Collected: 02/03/2018 Status: F Source: AGUILAR 7:45 AM [facility] REPOSITORY TYPE CODE TESTS RESULT OUT OF RANGE REFERENCE UNITS LAB L501.2450 73-393 U/L Normal LIPASE 77 Performed By: #### L100.0100, L501.2400, L501.2450 #### [facility] [address] [place], [address] SCREENING MAMM (CAD), Observed: 06/22/2017 Status: F Source: AGUILAR BIL 8:52 AM [facility] REPOSITORY [facility] Imaging Services [address] [place] [address] SCREENING MAMM (CAD), BILAT MR#: [id number] Acct: [id number] Name: SAMI CAMPUZANO Rep #: [id number] : 1955 F 61 From: Ash Dennis MD PCP: Nehal Vu MD Status: REG CLI Study: SCREENING MAMM (CAD), BILAT Date of Exam: 06/22/17 Exam# [id number] Ordering Dr: Nehal Vu MD MAMMOGRAPHY - BILATERAL SCREENING REASON FOR EXAM: Female, 61 years old. Routine annual screening examination. PERTINENT HISTORY: Aunt with breast cancer. TECHNIQUE: Digital bilateral breast lan (3D mammographic acquisition) in the CC and MLO projections. 2-D mediolateral oblique (MLO) and craniocaudad (CC) views of both breasts were obtained. CAD: Full Field Digital Mammography with Computer Added Detection was performed. COMPARISON: Comparison is [...] delay biopsy of a clinically suspicious abnormality. [id number] Electronically Signed: Ash Dennis MD at 10:59 EDT Tel [phone], Service support , CC: Nehal Vu MD Chief Concierge: Signed DEXA BONE DENSITY Observed: 06/22/2017 Status: F Source: AGUILAR STUDY () 8:52 AM [facility] REPOSITORY [facility] Imaging Services [address] [place] [address] Dexa Bone Density Study () MR#: [id number] Acct: [id number] Name: SAMI CAMPUZANO Rep #: [id number] : 1955 F 61 From: Ash Dennis MD PCP: Nehal Vu MD Status: REG CL Study: Dexa Bone Density Study () Date of Exam: 06/22/17 Exam# [id number] Ordering Dr: Nehal Vu MD STUDY: DUAL ENERGY X-RAY ABSORPTIOMETRY / DXA REASON FOR EXAM: Female, 61 years old. The patient is postmenopausal. Loss of height. TECHNIQUE: Bone Mineral Density (BMD) measurements of lumbar spine and bilateral hips were obtained. COMPARISON: None. FINDINGS: Lumbar Spine (L1-L4): g/cm2 (1.097) / T-score (-0.7) / Z-score (0.5) Findings are suggestive of normal bone density with a low fracture risk. Left Femur Total: g/cm2 (0.954) / T-score (-0.4) / Z- score (0.5) Left Femoral Neck: g/cm2 (1.056) / T-score (0.1) / Z- score (1.4) Right Femur Total: g/cm2 (0.991) / T-score (-0.1) / Z- score (0.8) Right Femoral Neck: g/cm2 (1.053) / T-score (0.1) / Z- score (1.3) HPBD/Dexa Bone Density Study (HP) IMPRESSION: The patient is considered normal as outlined below according to World Eugene Organization (WHO) criteria with a low fracture risk. Reference Information: The T-score is the number of standard deviations above or below the standard which is normal for young adults at their peak bone mineral density. The World Health Organization (WHO) interprets the T-scores as follows: Above -1 Normal bone density Between -1 and -2.5 Osteopenia Equal to / or below -2.5 Osteoporosis As a practical clinical guideline, osteopenia may be graded as follows: Mild -1 through -1.5 Moderate -1.6 through -2.0 Severe -2.1 through -2.4 The Z-score is the number of standard deviations above or below age-matched controls. A Z-score of less than -1.5 would be considered abnormal. References: 1. NIH Osteoporosis and Related Bone Diseases http://www.osteo.org 2. International Society for Clinical Densitometry http://www.iscd.org 3. National Osteoporosis Foundation http://www.nof.org Electronically Signed: Ash Dennis MD at 13:01 EDT Tel [phone], Service support , CC: Nehal Vu MD Chief Concierge: Signed ALLERGIES ALLERGIES DATE TYPE / CODE NAME / CODE REACTION SEVERITY SOURCE 03/25/2018 Drug No Known Unknown [facility] Allergy/4160 Allergies/F00 Hospital 39118(SNOMED [id number](RXNOR Repository CT) M) ENCOUNTERS ENCOUNTERS ADMIT/DISCHARGE ACCOUNT ADMITTING ENCOUNTER LOCATION SOURCE NUMBER CLASS 03/25/2018/ [id number] Ambulatory BMSBuilding:B Ej 8 6 [facility] Repository 03/24/2018 [id number] Ambulatory BMSBuilding:B Ej 4 [facility] Repository 03/10/2018 [id number] Ambulatory [place] 6 [facility] ing:[facility] Repository 03/10/2018 [id number] Ambulatory BMSBuilding:B Ej 4 [facility] Repository 03/10/2018 [id number] Ambulatory Building:[facility] Repository 03/08/2018/ [id number] [place], Ambulatory Ej Ej 8 4 [facility] ing:PCURoom: Repository [id number]: 1 03/08/2018 [id number] Ambulatory BMSBuilding:W [place] 3 [facility] Repository 03/08/2018 [id number] [place], Ambulatory BMSBuilding:B Ej 1 [place] [facility] Repository 03/08/2018 [id number] [place], Ambulatory BMSBuilding:B [place] 6 [place] [facility] Repository 03/08/2018 [id number] [place], Ambulatory BMSBuilding:B Ej 3 [place] [facility] Repository 02/03/2018 [id number] Ambulatory [place] Ej 5 [facility] ing:LABSPEC Repository 06/22/2017 [id number] Ambulatory [place] Ej 7 [facility] ing:BD Repository PAYERS PAYERS ENCOUNTER GUARANTOR PAYER SUBSCRIBER SOURCE 03/25/2018 JERROD AMBRIZ6 [place] BRAUN: Ej [address] Insurance:MEDICAL [id number] [id number]: (330) Number: Repository [phone] ) [id number] Date:5377-49-[place] [id number]: 03/25/2018 Secondary NOT GIVENUNK [place] Insurance:SELF PAY [facility] Number: Effective Repository Date:2018-03-18 03/24/2018 JERROD BARNARDUN5626 Primary SAMI D BEUNDOB: [place] [address] Insurance:MEDICAL [id number] [facility] Hospital [address]Tvt: (330) Number: Repository [phone] () [id number] Date:7362-21-38RW [address] [place] [address]MY: 03/24/2018 Secondary NOT GIVENUNK Ej Insurance:SELF PAY [facility] Number: Effective Repository Date:2018-03-24 03/10/2018 JERROD BARNARDUN5626 Primary NOT GIVENUNK Ej [address] Insurance:SELF PAY [facility] [address]Wag: (330) Number: Effective Repository [phone] () Date:2018-03-09 03/10/2018 JERROD BARNARDUN5626 Primary SAMI D BEUNDOB: Ej [address] Insurance:MEDICAL [id number] County Hospital [address]Rsj: (330) Number: Repository [phone] () [id number] Date:5393-14-20KD [address] [place] [address]XL: 03/10/2018 Secondary NOT GIVENUNK Ej Insurance:SELF PAY [facility] Number: Effective Repository Date:2018-03-10 03/10/2018 SAMI D BEUNDOB: Primary [facility] [id number] Insurance:Medical [id number] Repository [address] [place] [address] [address] [place], [place] Number: [place], [place] [address]Tef: (486) [id number] [id number]: Date:9295-01-21Vtxm [phone] () (HP)Tel: [phone]) Name:[facility] [phone] () [address] [place] [address] [id number]: 03/10/2018 Secondary [facility] Insurance:[employer] [id number] Repository icy Number: Leti [id number] Gonzalez Date:2004-04-12 [address]Uwc: [phone]) [id number] [phone] () Name:[facility] [address] [place] [address] [id number]: 03/08/2018 JERROD CAMPUZANO5626 Primary SAMI D BEUNDOB: Ej [address] Insurance:MEDICAL [id number] County Hospital [address]Qhg: 330) Number: Repository [phone] () [id number] Date:7672-25-37JI [address] [address]EH: 03/08/2018 Secondary NOT GIVENUNK [place] Insurance:SELF PAY [facility] Number: Effective Repository Date:2018-03-08 03/08/2018 JERROD CAMPUZANO5626 Primary SAMI D BEUNDOB: Ej [address] Insurance:MEDICAL [id number] County Hospital [address]Bzg: (330) Number: Repository [phone] () [id number] Date:3797-08-01[place]EM[place] [address]WP: 03/08/2018 Secondary NOT GIVENUNK [place] Insurance:SELF PAY [facility] Number: Effective Repository Date:2018-03-08 03/08/2018 JERROD BARNARDUN5626 Primary SAMI D BEUNDOB: Ej [address] Insurance:MEDICAL [id number] County Hospital [address]Kjk: (330) Number: Repository [phone] () [id number] Date:2662-71-16Y[address] [address]PZ: 03/08/2018 Secondary NOT GIVENUNK [place] Insurance:SELF PAY [facility] Number: Effective Repository Date:2018-03-08 03/08/2018 JERROD BARNARDUN5626 Primary SAMI D BEUNDOB: [place] [address] Insurance:MEDICAL [id number] County Hospital [id number]: (330) Number: Repository [phone] () [id number] Date:5729-43-76SQ [address] [place] [id number]: 03/08/2018 Secondary NOT GIVENUNK Ej Insurance:SELF PAY [facility] Number: Effective Repository Date:2018-03-08 03/08/2018 JERROD [id number] Primary SAMI D BEUNDOB: Ej KID[address]APP[address] Insurance:[id number] [address]Kcr: (330) Number: Repository [phone] () [id number] Date:[id number] [address] [address]LL: 03/08/2018 Secondary NOT GIVENUNK [place] Insurance:SELF PAY [facility] Number: Effective Repository Date:2018-03-08 02/03/2018 JERROD [id number] Primary SAMI D BEUNDOB: [place] [address] Insurance:MEDICAL [id number] [address]Rpn: (330) Number: Repository [phone] () [id number] Date:[id number] [address] [place] [id number]: 02/03/2018 Secondary NOT GIVENUNK [place] Insurance:SELF PAY [facility] Number: Effective Repository Date:2018-02-03 06/22/2017 Jerrod [id number] Primary SAMI D BEUNDOB: Ej [address] Insurance:MEDICAL [id number] [address]Rbi: [phone] Number: Repository [phone] HP) [id number] Date:[id number] [address]JT: 06/22/2017 Secondary NOT GIVENUNK Ej Insurance:SELF PAY [facility]: Effective Repository Date:2017-05-26
== END 2018-03-09 14:01 | disposition home or self-care (01) ==
LOC: ED 18:46 → PCU 19:58
PROVIDERS: Admitting Provider Hospitalist; Emergency Provider Emergency Medicine; Family Provider Internal Medicine; PCP Internal Medicine; Visit Provider Hospitalist
DX: I21.4 Non-ST elevation (NSTEMI) myocardial infarction (principal); R55 Syncope and collapse; I71.4 Abdominal aortic aneurysm, without rupture; R73.03 Prediabetes
CPT/HCPCS: 36415; 71045; 75625; 80048; 80061; 83036; 84443; 84484; 85025; 85027; 85379; 85610; 85730; 93005; 93306; 93458; 93978; 96360; 96361; 96372; 99152; 99153; 99218; 99285; J7030; Q9967; A4216; C1725; C1769; C1874; C1894; G0378

== ENCOUNTER → 2018-07-13 08:12 | Outpatient (CLI) | payer OTHER, SELFPAY ==
[2018-05-11 14:13] VITALS: BMI 22.8
--- NOTE | 2018-07-13 08:17 | BI_ITS ---
MAMMOGRAPHY - BILATERAL SCREENING REASON FOR EXAM: Female, 63 years old. Routine annual screening examination. PERTINENT HISTORY: Aunt with breast cancer. TECHNIQUE: Digital bilateral breast lan (3D mammographic acquisition) in the CC and MLO projections. 2-D mediolateral oblique (MLO) and craniocaudad (CC) views of both breasts were obtained. CAD: Full Field Digital Mammography with Computer Added Detection was performed. COMPARISON: Comparison is made with prior study dated June 22, 2017 and May 23, 2016. FINDINGS: Breast Composition: The breasts are extremely dense, which lowers the sensitivity of mammography. There are no dominant masses or suspicious calcifications. No other significant abnormalities are identified. There has been no significant change since the prior study. BI/SCREENING MAMM (CAD), BILAT IMPRESSION: Stable bilateral screening mammogram. Yearly follow-up mammogram recommended. (A) ASSESSMENT CATEGORY: BIRADS Category 1: Negative. A letter regarding these results will be sent to the patient by the facility within 30 days. Approximately 10% of breast cancers are not detected by mammography. A normal mammogram should not delay biopsy of a clinically suspicious abnormality. [id number] Electronically Signed: Ash Dennis, at 9:12 EDT , Service support ,
== END ==
PROVIDERS: Family Provider Internal Medicine; PCP Internal Medicine; Referring Provider Internal Medicine; Visit Provider Internal Medicine
DX: Z12.31 Encounter for screening mammogram for malignant neoplasm of breast (principal); Z80.3 Family history of malignant neoplasm of breast
CPT/HCPCS: 77063; 77067

== ENCOUNTER → 2018-07-20 07:45 | Outpatient (CLI) | payer OTHER, SELFPAY ==
[2018-03-08 21:02] VITALS: BMI 22.8
[2018-05-11 14:13] VITALS: BMI 22.8
--- NOTE | 2018-07-20 07:48 | US_ITS ---
PROCEDURES: ULTRASOUND AORTA REASON FOR EXAM: Female, 63 years old. Abdominal aortic aneurysm screening. TECHNIQUE: Ultrasound evaluation of the aorta was performed with real-time and static urias-scale imaging. COMPARISON: March 09, 2019. FINDINGS: There is no elongation or tortuosity of the abdominal aorta. The proximal, mid and distal abdominal aorta measure 2.1 x 2.4 cm, 1.5 x 1.9 cm and 1.6 x 1.9 cm in the AP and transverse dimensions respectively. Minimal peripheral plaque identified in the mid/distal abdominal aorta. Right and left common iliac arteries measure 1.1 x 1.3 cm and 1.0 x 1.4 cm in AP and transverse dimensions respectively. There is no demonstrated aneurysm.. US/Aorta IMPRESSION: No abdominal aortic aneurysm. Minimal dilatation of the common iliac arteries slightly increased since the prior study. Electronically Signed: Eren Vaca MD at 4:44 EDT , Service support ,
== END ==
PROVIDERS: Family Provider Internal Medicine; PCP Internal Medicine; Referring Provider Internal Medicine; Visit Provider Internal Medicine
DX: I71.4 Abdominal aortic aneurysm, without rupture (principal)
CPT/HCPCS: 76775

== ENCOUNTER → 2020-01-05 07:26 | Outpatient (CLI) | payer OTHER, SELFPAY ==
[2018-11-09 11:37] VITALS: BMI 23.8
--- NOTE | 2020-01-05 07:34 | BI_ITS ---
MAMMOGRAPHY - BILATERAL SCREENING REASON FOR EXAM: Female, 64 years old. Routine annual screening examination. PERTINENT HISTORY: Aunt with breast cancer. TECHNIQUE: Digital bilateral breast adi (3D mammographic acquisition) in the CC and MLO projections. 2-D mediolateral oblique (MLO) and craniocaudad (CC) views of both breasts were obtained. CAD: Full Field Digital Mammography with Computer Added Detection was performed. COMPARISON: Comparison is made with prior examination dated 07/13/2018 and 06/22/2017. FINDINGS: Breast Composition: The breasts are extremely dense, which lowers the sensitivity of mammography. There are no dominant masses or suspicious calcifications. No other significant abnormalities are identified. There has been no significant change since the prior study. BI/SCREEN MAMM (CAD) W/ADI BILAT IMPRESSION: Stable bilateral screening mammogram. Yearly follow-up mammogram recommended. (A) ASSESSMENT CATEGORY: BIRADS Category 1: Negative. A letter regarding these results will be sent to the patient by the facility within 30 days. Approximately 10% of breast cancers are not detected by mammography. A normal mammogram should not delay biopsy of a clinically suspicious abnormality. [id number] Electronically Signed: Ash Dennis, at 13:14 EDT , Service support ,
--- NOTE | 2020-01-05 07:34 | US_ITS ---
STUDY: THYROID ULTRASOUND REASON FOR EXAM: Female, 64 years old. NODULES TECHNIQUE: Ultrasound evaluation of the thyroid was performed with real-time and static urias-scale imaging. COMPARISON: Comparison is made with prior study dated 05/26/2016. FINDINGS: RIGHT LOBE: The right lobe of the thyroid gland is enlarged and measures 8.4 cm x 3 cm x 3.4 cm. There is a heterogeneous echotexture. There is a dominant predominantly solid nodule in the lower pole of the right lobe of the thyroid measuring 4.5 cm x 2.3 cm x 2.1 cm. Another dominant nodule measuring 1.6 cm x 1.6 x 1.5 cm is seen in the midpole. There is evidence of intranodular vascularity. LEFT LOBE: The left lobe of the thyroid gland is enlarged and measures 7.6 cm x 2.6 x 3.4 cm. There is a heterogeneous echotexture. Multiple nodules are seen. The largest nodule is solid and measures 1.3 cm x 1.7 cm x 1.9 cm. This is in the lower pole. ISTHMUS: The isthmus measures 8.0 mm. The regional lymph nodes are normal. US/Thyroid IMPRESSION: Enlarged thyroid gland with dominant nodules in both lobes as described. The largest nodule is in the lower pole of the right lobe measuring 4.5 size by 2.3 cm x 2.1 cm. These have increased in size as compared to prior study. Electronically Signed: Ash Dennis, at 11:16 EDT , Service support ,
== END ==
PROVIDERS: PCP Internal Medicine; Referring Provider Internal Medicine; Visit Provider Internal Medicine
DX: Z12.31 Encounter for screening mammogram for malignant neoplasm of breast (principal); E04.9 Nontoxic goiter, unspecified
CPT/HCPCS: 76536; 77063; 77067

== ENCOUNTER → 2020-01-10 | Outpatient (CLI) | payer OTHER, SELFPAY ==
[2018-11-09 11:37] VITALS: BMI 23.8
--- NOTE | 2020-01-10 08:30 | BD_ITS ---
STUDY: DUAL ENERGY X-RAY ABSORPTIOMETRY / DXA REASON FOR EXAM: Female, 64 years old. 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 COMPARISON: Comparison is made with prior study dated 06/22/2017. FINDINGS: Lumbar Spine (L1-L4): g/cm2 (1.015) / T-score (-1.4) / Z-score (0.0) Findings are suggestive of osteopenia with a low fracture risk. Left Femur Total: g/cm2 (0.883) / T-score (-1.0) / Z-score (0.1) Left Femoral Neck: g/cm2 (0.933) / T-score (-0.8) / Z-score (0.6) Right Femur Total: g/cm2 (0.922) / T-score (-0.7) / Z-score (0.4) Right Femoral Neck: g/cm2 (0.965) / T-score (-0.5) / Z-score (0.8) The T-Scores on the most recent prior examination were: Lumbar Spine (L1-L4): There has been worsening of bone density since the previous examination. Left Femur Total: which represents a worsening of 7.4%. Right Femur Total: which represents a worsening of 7%. BD/Dexa Bone Density Study IMPRESSION: The patient is considered osteopenic as outlined below according to World [place] Organization (WHO) criteria with a low fracture risk. There has been worsening of bone density since the previous examination. Reference Information: The T-score is the number of standard deviations above or below the standard which is normal for young adults at their peak bone mineral density. The World Health Organization (WHO) interprets the T-scores as follows: Above -1 Normal bone density Between -1 and -2.5 Osteopenia Equal to / or below -2.5 Osteoporosis As a practical clinical guideline, osteopenia may be graded as follows: Mild -1 through -1.5 Moderate -1.6 through -2.0 Severe -2.1 through -2.4 The Z-score is the number of standard deviations above or below age-matched controls. A Z-score of less than -1.5 would be considered abnormal. References: 1. NIH Osteoporosis and Related Bone Diseases http://www.osteo.org 2. International Society for Clinical Densitometry http://www.iscd.org 3. National Osteoporosis Foundation http://www.nof.org Electronically Signed: Ash Dennis, at 13:37 EDT , Service support ,
== END | disposition home or self-care (01) ==
LOC: OPBD 08:21
PROVIDERS: PCP Internal Medicine; Referring Provider Internal Medicine; Visit Provider Internal Medicine
DX: Z78.0 Asymptomatic menopausal state (principal)
CPT/HCPCS: 77080

== ENCOUNTER → 2020-02-01 06:59 | Outpatient (CLI) | payer OTHER, SELFPAY ==
[2020-01-22 15:21] VITALS: BMI 24.4
--- NOTE | 2020-01-31 15:30 | ASPS_PTH ---
PATIENT: GRISELDA CAMPUZANO LOC: DAT U#:[id number] AGE/SX: 69/F ROOM: RE02/01/[address]: Dr. Pb Smith MD : 1955 BED: DIS: SPEC #: [id number] RECD: 01/31/20 16:41 STATUS: DEL RADHA #: [id number] MARIA VICTORIA: 01/31/20 15:[address]: Pb Smith DEPT: CYTOLOGY RECD BY: Jie Dominguez ENTERED: 02/01/20 07:54 SP TYPE: ASPIRATION OTHR DR: Dr. Nehal Vu MD Tissues: A - Thyroid gland, NOS B - Thyroid gland, NOS Procedures: Special Stain Group II Cytology Other HEADER OPERATION: Bilateral thyroid fine needle aspiration PRE-OP DIAGNOSIS: Bilateral thyroid nodule TISSUE SUBMITTED: A - Right thyroid nodule slides x6, B - Left thyroid nodule slides x6 DIAGNOSIS CYTOLOGY A. Right thyroid nodule, FNA (smears): Consistent with benign follicular nodule with cystic changes. Adequate for evaluation. B. Left thyroid nodule, FNA (smears): Consistent with benign follicular nodule. Adequate for evaluation. KATHARINA:nino 02/02/20 COMMENT Correlation with clinical, radiologic findings and appropriate follow up are necessary. CYTOLOGY STUDY Slides are reviewed. CYTOLOGY GROSS A - Received are six smears labeled with the patient's name and designated per the requisition as right thyroid. Submitted for staining. B - Received are six smears labeled with the patient's name and designated per the requisition as left thyroid. Submitted for staining. / nino 02/01/20 TC:5 CPT: 59344 x2
== END ==
PROVIDERS: PCP Internal Medicine; Referring Provider Surgery; Visit Provider Surgery
DX: E04.1 Nontoxic single thyroid nodule (principal)
CPT/HCPCS: 88161; 88313

== ENCOUNTER 2020-06-20 15:24 | Outpatient (RCR) | payer OTHER, SELFPAY ==
[2020-05-17 10:36] VITALS: BMI 25.4
[2020-06-20] MEDS: COVID-19 VACC, MRNA(PFIZER)/PF 30 MCG/0.3 ML SYRINGE IM (17:50)
[2020-07-11] MEDS: COVID-19 VACC, MRNA(PFIZER)/PF 30 MCG/0.3 ML SYRINGE IM (17:04)
== END 2020-09-17 23:59 ==
LOC: IMMUN 15:24
PROVIDERS: PCP Internal Medicine; Referring Provider Family Medicine; Visit Provider Family Medicine
DX: Z23 Encounter for immunization (principal)
CPT/HCPCS: 0001A; 0002A; 91300

== ENCOUNTER → 2020-09-25 10:28 | Outpatient (CLI) | payer OTHER, SELFPAY ==
[2020-09-25 09:56] VITALS: BMI 23.8
[2020-09-25 12:36] LABS: T4 Free Direct 0.74 ng/dL (0.76-1.46); Thyroid Stim Hormone (TSH) 8.53 uIU/mL (0.358-3.74)
== END ==
PROVIDERS: PCP Internal Medicine; Referring Provider Internal Medicine Endocrinology, Diabetes & Metabolism; Visit Provider Internal Medicine Endocrinology, Diabetes & Metabolism
DX: Z90.09 Acquired absence of other part of head and neck (principal); Z86.39 Personal history of other endocrine, nutritional and metabolic disease
CPT/HCPCS: 36415; 84439; 84443

== ENCOUNTER → 2021-08-08 | Outpatient (CLI) | payer OTHER, SELFPAY ==
--- NOTE | 2021-08-08 12:49 | ECHOD_ITS ---
Reason For Study: MITRAL VALVE INSUFF Procedure This was a 2D Doppler, Color Flow transthoracic echocardiogram. The exam was of adequate technical quality. Exam performed in department. Left Ventricle Normal LV size. Left ventricular systolic function is normal. The estimated ejection fraction is 60 %. No evidence for diastolic dysfunction. No regional wall motion abnormalities noted. Right Ventricle Normal RV size. Normal systolic function. Atria Normal left atrium. Normal right atrium. No doppler evidence for ASD. Mitral Valve There is no mitral annular calcification. Normal mitral valve. Mild (1+) mitral valve insufficiency. Tricuspid Valve Normal tricuspid valve. Mild tricuspid valve insufficiency. Right ventricular systolic pressure estimated to be 28 mmHg. Aortic Valve Trisinus/trileaflet aortic valve. Mild diffuse aortic valve thickening. Pulmonic Valve The pulmonic valve is not well visualized. Great Vessels Normal sized aortic root. Pericardium/Pleural No pericardial effusion. MMode/2D Measurements & Calculations LVIDd: 4.2 cm IVSd: 0.86 cm Ao root diam: 2.8 cm LVIDs: 2.4 cm LVPWd: 0.91 cm RVDd: 3.3 cm FS: 43.6 % LAV(MOD-sp2): 54.4 ml LVAd ap4: 21.4 cm2 LVAd ap2: 26.1 cm2 LVLd ap4: 6.0 cm LVLd ap2: 7.9 cm EDV(MOD-sp4): 61.5 ml EDV(MOD-sp2): 76.4 ml EDV(sp4-el): 65.9 ml EDV(sp2-el): 73.3 ml LVAs ap4: 13.7 cm2 LVAs ap2: 13.1 cm2 LVLs ap4: 5.7 cm LVLs ap2: 5.4 cm ESV(MOD-sp4): 28.4 ml ESV(MOD-sp2): 27.3 ml ESV(sp4-el): 27.9 ml ESV(sp2-el): 26.9 ml EF(MOD-sp4): 53.7 % EF(MOD-sp2): 64.2 % EF(sp4-el): 57.6 % SV(MOD-sp4): 33.1 ml SV(MOD-sp2): 49.1 ml SV(sp4-el): 38.0 ml LA dimension(2D): 3.7 cm LA A4 area: 16.8 cm2 Doppler Measurements & Calculations MV E max grupo: 92.8 cm/sec Lat Peak E' Grupo: 12.3 cm/sec Med Peak E' Grupo: 10.0 cm/sec MV A max grupo: 68.6 cm/sec E/E' lat: 7.6 E/E' med: 9.3 MV E/A: 1.4 Ao V2 max: 125.0 cm/sec LV V1 max: 114.5 cm/sec PA V2 max: 104.8 cm/sec Ao max P.3 mmHg LV V1 max P.2 mmHg TR max grupo: 248.9 cm/sec TR max P.8 mmHg ECHO/Echo Complete Interpretation Summary Left ventricular systolic function is normal. The estimated ejection fraction is 60 %. Mild (1+) mitral valve insufficiency. Mild tricuspid valve insufficiency. Mild diffuse aortic valve thickening. Right ventricular systolic pressure estimated to be 28 mmHg. No evidence for diastolic dysfunction. Ordering Physician: Elidia Torres Referring Physician: Elidia Torres Performed By: Alessandra Del Rio RCS
== END | disposition home or self-care (01) ==
PROVIDERS: PCP Internal Medicine; Referring Provider Nurse Practitioner Gerontology; Visit Provider Nurse Practitioner Gerontology
DX: I34.0 Nonrheumatic mitral (valve) insufficiency (principal)
CPT/HCPCS: 93306

== ENCOUNTER → 2022-01-21 | Outpatient (CLI) | payer OTHER, SELFPAY ==
--- NOTE | 2022-01-21 08:36 | BI_ITS ---
MAMMOGRAPHY - BILATERAL SCREENING REASON FOR EXAM: Female, 66 years old. Routine annual screening examination. PERTINENT HISTORY: Aunt with breast cancer. TECHNIQUE: Digital bilateral breast adi (3D mammographic acquisition) in the CC and MLO projections. 2-D mediolateral oblique (MLO) and craniocaudad (CC) views of both breasts were obtained. CAD: Full Field Digital Mammography with Computer Added Detection was performed. COMPARISON: Comparison is made with prior study of 01/05/2020 and 07/13/2018. FINDINGS: Breast Composition: The breasts are extremely dense, which lowers the sensitivity of mammography. There are no dominant masses or suspicious calcifications. No other significant abnormalities are identified. There has been no significant change since the prior study. BI/SCRN MAMM (CAD)W/ADI BILAT IMPRESSION: Stable bilateral screening mammogram. Yearly follow-up mammogram recommended. (A) ASSESSMENT CATEGORY: BIRADS Category 1: Negative. A letter regarding these results will be sent to the patient by the facility within 30 days. Approximately 10% of breast cancers are not detected by mammography. A normal mammogram should not delay biopsy of a clinically suspicious abnormality. [id number] Electronically Signed: Ash Dennis MD at 10:07 EDT ,
--- NOTE | 2022-01-21 09:05 | BD_ITS ---
STUDY: DUAL ENERGY X-RAY ABSORPTIOMETRY / DXA REASON FOR EXAM: Female, 66 years old. [id number]. Patient is postmenopausal. TECHNIQUE: Bone Mineral Density (BMD) measurements of lumbar spine and bilateral hips were obtained. COMPARISON: Comparison is made with prior study 01/10/2020. FINDINGS: Lumbar Spine (L1-L4): g/cm2 (0.846) / T-score (-1.8) / Z-score (-0.1) Findings are suggestive of osteopenia with a moderate fracture risk. Left Femur Total: g/cm2 (0.846) / T-score (-0.8) / Z-score (0.4) Left Femoral Neck: g/cm2 (0.715) / T-score (-1.2) / Z-score (0.3) Right Femur Total: g/cm2 (0.909) / T-score (-0.3) / Z-score (0.9) Right Femoral Neck: g/cm2 (0.772) / T-score (-0.7) / Z-score (0.8) The T-Scores on the most recent prior examination were: Lumbar Spine (L1-L4): There has been worsening of bone density since the previous examination. Left Femur Total: which represents an improvement of 3.1%. Right Femur Total: which represents an improvement of 5.9%. BD/Dexa Bone Density Study IMPRESSION: The patient is considered osteopenic as outlined below according to World [place] Organization (WHO) criteria with a moderate fracture risk. There has been improvement of bone density since the previous examination. Reference Information: The T-score is the number of standard deviations above or below the standard which is normal for young adults at their peak bone mineral density. The World Health Organization (WHO) interprets the T-scores as follows: Above -1 Normal bone density Between -1 and -2.5 Osteopenia Equal to / or below -2.5 Osteoporosis As a practical clinical guideline, osteopenia may be graded as follows: Mild -1 through -1.5 Moderate -1.6 through -2.0 Severe -2.1 through -2.4 The Z-score is the number of standard deviations above or below age-matched controls. A Z-score of less than -1.5 would be considered abnormal. References: 1. NIH Osteoporosis and Related Bone Diseases www osteo.org 2. International Society for Clinical Densitometry www iscd.org 3. National Osteoporosis Foundation www nof.org Electronically Signed: Ash Dennis MD at 12:54 EDT ,
== END | disposition home or self-care (01) ==
PROVIDERS: PCP Internal Medicine; Visit Provider Internal Medicine
DX: Z12.31 Encounter for screening mammogram for malignant neoplasm of breast (principal); Z78.0 Asymptomatic menopausal state; Z80.3 Family history of malignant neoplasm of breast
CPT/HCPCS: 77063; 77067; 77080

== ENCOUNTER → 2022-07-21 | Outpatient (CLI) | payer MEDICARE, SELFPAY ==
--- NOTE | 2022-07-21 08:04 | US_ITS ---
HISTORY: ABNORMAL US. TECHNIQUE: Mills scale and color doppler imaging was obtained of the abdominal aorta. 27 images. COMPARISON: 07/20/2018. FINDINGS: PROXIMAL ABDOMINAL AORTA: 2.3 x 2.5 cm. MID ABDOMINAL AORTA: 2.1 x 2.5 cm. DISTAL ABDOMINAL AORTA: 1.8 x 2 cm. RIGHT ILIAC ARTERY: 1.4 cm. LEFT ILIAC ARTERY: 1.4 cm. Abdominal aorta, iliac arteries, and inferior vena cava are all patent. US/Aorta IMPRESSION: No sonographic evidence of abdominal aortic aneurysm. Electronically Signed: Jeanne Couch MD at 15:39 EDT ,
== END | disposition home or self-care (01) ==
PROVIDERS: PCP Internal Medicine; Referring Provider Internal Medicine; Visit Provider Internal Medicine
DX: R93.5 Abnormal findings on diagnostic imaging of other abdominal regions, including retroperitoneum (principal)
CPT/HCPCS: 76775

== ENCOUNTER → 2023-01-25 | Outpatient (CLI) | payer MEDICARE, OTHER, SELFPAY ==
--- NOTE | 2023-01-25 08:31 | BI_ITS ---
MAMMOGRAPHY - BILATERAL SCREENING 3-D TOMOSYNTHESIS REASON FOR EXAM: Female, 67 years old. Screening mammogram PERTINENT HISTORY: No significant family history. TECHNIQUE: 2-D mammograms and 3-D Tomosynthesis of the breast (s) were performed. CAD was performed. COMPARISON: 01/21/2022 FINDINGS: The breast composition is heterogeneously dense that can obscure small breast masses. Scattered benign calcifications are seen. No dense spiculated masses or suspicious microcalcifications are identified. No architectural distortion is identified. There is no skin thickening or retraction. There has been no significant change since the prior study. BI/SCRN MAMM (CAD)W/ADI BILAT IMPRESSION: No mammographic signs of malignancy. Routine yearly mammograms recommended. ASSESSMENT CATEGORY: BIRADS Category 1: Negative. A letter regarding these results will be sent to the patient by the facility within 30 days. FOLLOW UP RECOMMENDATION: Yearly follow up mammogram recommended. (A) Approximately 10% of breast cancers are not detected by mammography. A normal mammogram should not delay biopsy of a clinically suspicious abnormality. Electronically Signed: Ricki Sanchez MD at 10:45 EDT ,
== END | disposition home or self-care (01) ==
LOC: OPBI 08:30
PROVIDERS: PCP Internal Medicine; Referring Provider Internal Medicine; Visit Provider Internal Medicine
DX: Z12.31 Encounter for screening mammogram for malignant neoplasm of breast (principal)
CPT/HCPCS: 77063; 77067

== ENCOUNTER 2023-10-28 08:20 | Day surgery (SDC) | payer MEDICARE, OTHER, SELFPAY ==
[2023-10-28 08:36] VITALS: BP 120/66; PULSE 97; RESP 16; TEMP 36.6; O2SAT 98; BMI 28.1
--- NOTE | 2023-10-28 08:38 | PRE.ANES_ITS ---
ASA Classification* ASA Classification ASA Classification: 2 Assessment & Plan Anesthesia* Anesthesia Assessment Anesthesia Assessment: Discussed sedation and/or anesthesia options, risks, benefits, and alternatives with patient/parents/legal guardian/POA. Questions invited. The patient/parents/legal guardian/POA seems to understand and agrees to proceed with anesthesia plan. Reviewed the physical assessment, medical history, allergy history and patient home medications list prior to surgery/procedure/anesthetic and documented any changes. Performed airway and anesthesia risk assessments. Anesthesia Type Anesthesia Type: MAC (see written pre anesthesia record for full assessment) Anesthesia Focused Assessment* Airway Assessment Mouth opens: >3 cm Mallampati Score: II Focused Labs Anesthesia Preop lab: CBC WBC 4.8 K/mm3 (4.4-11.0) 03/09/18 05:10 RBC 4.98 M/mm3 (4.2-5.4) 03/09/18 05:10 Hgb 13.6 g/dl (12.0-15.0) 03/09/18 05:10 Hct 42.8 % (37-47) 03/09/18 05:10 Plt Count 187 K/mm3 (150-450) 03/09/18 05:10 CHEMISTRY Potassium 3.7 mmol/L (3.5-5.1) 03/09/18 05:10 Sodium 143 mmol/L (136-145) 03/09/18 05:10 BUN 18 mg/dL (7-18) 03/09/18 05:10 Creatinine 0.58 mg/dL (0.55-1.02) 03/09/18 05:10 Glucose 82 mg/dL (74-106) 03/09/18 05:10 TSH 8.53 uIU/mL (0.358-3.74) H 09/25/20 10:29 COAG PT 13.6 SECONDS (11.7-14.9) 03/08/18 18:15 Urine Test Negative Negative 01/08/15 13:30 Pre-Assessment Diagnosis/Proposed Procedure Planned Operative Procedure(s): COLONSCOPY-OA Anesthesia History 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 When Was Last Pacemaker Check QUESTION #4 FULL TEXT: You/Your Family Experience fever (hyperthermia) with Anesthesia Last Oral Intake Last Oral intake: Last Oral Intake NPO since Meds taken in AM with sips of water? Meds patient instructed to take am of surgery PONV PONV - electro mechanical engineer: PONV - electro mechanical engineer Female Yes 10/26/23 08:58 HX of Motion Sickness No 10/26/23 08:58 HX of N/V After Surgery No 10/26/23 08:58 Non-Smoker Yes 10/26/23 08:58 Duration of Surgery greater No 10/26/23 08:58 than 60 minutes Number of Risk Factors 2 10/26/23 08:58 PONV Score Moderate Risk 10/26/23 08:58 Height & Weight Height & Weight: Anesthesia: Height & Weight Height 5 ft 4 in 09/09/23 11:58 Respiratory Assessment Respiratory Assessment - electro mechanical engineer: Respiratory Tract Infection Hx - electro mechanical engineer Hx Respiratory Tract Infection No 10/26/23 08:58 STOP Sleep Apnea STOP Sleep Apnea - electro mechanical engineer: STOP Sleep Apnea - electro mechanical engineer Hx Hypertension Yes: CONTROLLED ON MED 10/26/23 08:58 Hx Sleep Apnea No 10/26/23 08:58 CPAP No 10/26/23 08:58 BIPAP No 10/26/23 08:58 Do you snore loudly (louder No 10/26/23 08:58 than talking or can be heard Do you often feel tired/ No 10/26/23 08:58 fatigued/ sleepy during daytime? Has anyone observed you stop No 10/26/23 08:58 breathing during sleep? STOP Results Negative 10/26/23 08:58 QUESTION #5 FULL TEXT : Do you snore loudly (louder than talking or can be heard through closed doors)? 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 Specify any problems Hx of Preganancy in last 3 No 10/26/23 08:58 Months Nurse Filling Out Transfusion VCHRISTIN 10/26/23 08:58 & Questions: Date: 10/26/23 10/26/23 08:58 Time: 08:59 10/26/23 08:58 Patient unable to answer at this time (ie. confused, unrespo /Reproduction History /Reproductive History - electro mechanical engineer: /Reproductive Hx- electro mechanical engineer Hx Now Gestational Age (in weeks): EDC: Hx Hx Para Hx Section SAB Active Medications Active Medications: Current Medications Generic Name Dose Route Start Last Admin Trade Name Freq PRN Reason Stop Dose Admin Lactated Ringer's 1,000 mls @ 15 mls/hr 10/28/23 08:30 IV .Q48H ANAI PFSH Medical History Wears glasses Anxiety Thyroid disease Back pain History of diverticulitis Non-smoker History of echocardiogram Cardiology follow-up encounter Hx of colonic polyp HTN (hypertension) History of Sarah thyroiditis History of left heart catheterization (LHC) (~03/09/18) Multiple thyroid nodules Mixed hyperlipidemia Non-ST elevation (NSTEMI) myocardial infarction Palpable abdominal aorta Abnormal cardiac enzyme level Palpitations Prediabetes Epigastric pain Syncope Home Medications ?Medication ?Instructions ?Recorded ?Last Taken ?Type multivitamin 1 ea PO DAILY 03/08/18 10/27/23 History cholecalciferol (vitamin D3) 25 25 mcg PO DAILY 07/04/21 10/27/23 History mcg (1,000 unit) capsule levothyroxine 75 mcg tablet 88 mcg PO DAILY 07/04/21 10/28/23 History metoprolol tartrate 25 mg tablet 25 mg PO DAILY 10/29/22 10/28/23 History magnesium 250 mg tablet 250 mg PO DAILY 10/26/23 10/27/23 History Allergy/AdvReac Type Severity Reaction Status Date / Time atorvastatin (From Lipitor) AdvReac Other Verified 10/28/23 08:35 Family History Father Heart problem Brother Diabetes Brother Diabetes Sister Diabetes Sister Paroxysmal supraventricular tachycardia Sister Tachycardia Mother Colon polyps Grandmother Stomach cancer Surgical History Hx of dilation and curettage Hx of colonoscopy History of lobectomy of thyroid (~09/10/20) History of left knee surgery History of cholecystectomy Social History household members: spouse current occupational status: employed Smoking Status: Never smoker alcohol intake: never substance use type: does not use Review of Systems (Anesthesia) ROS Narrative System reviewed and no additional complaints, except as documented.
[2023-10-28] MEDS: Lactated Ringers 1,000 ML 15 ML IV (08:49)
--- NOTE | 2023-10-28 09:24 | HP.PCM_ITS ---
[facility] - General General Date of Admission: 10/28/23 Date of Service: 10/28/23 Chief Complaint: Screening colonoscopy HPI Narrative GRISELDA CAMPUZANO, is a 68 F who presents today for screening colonoscopy. She had a colonoscopy back in 2012. She can has a past medical history of Sarah's thyroiditis, hyperlipidemia, history of non-ST segment elevation MA. She is not having any abdominal pain at this time. She denies any chest pain or shortness of breath. Overall she is in very good health. [facility] Medical History Wears glasses Anxiety Thyroid disease Back pain History of diverticulitis Non-smoker History of echocardiogram Cardiology follow-up encounter Hx of colonic polyp HTN (hypertension) History of Sarah thyroiditis History of left heart catheterization (LHC) (~03/09/18) Multiple thyroid nodules Mixed hyperlipidemia Non-ST elevation (NSTEMI) myocardial infarction Palpable abdominal aorta Abnormal cardiac enzyme level Palpitations Prediabetes Epigastric pain Syncope Home Medications ?Medication ?Instructions ?Recorded ?Last Taken ?Type multivitamin 1 ea PO DAILY 03/08/18 10/27/23 History cholecalciferol (vitamin D3) 25 25 mcg PO DAILY 07/04/21 10/27/23 History mcg (1,000 unit) capsule levothyroxine 75 mcg tablet 88 mcg PO DAILY 07/04/21 10/28/23 History metoprolol tartrate 25 mg tablet 25 mg PO DAILY 10/29/22 10/28/23 History magnesium 250 mg tablet 250 mg PO DAILY 10/26/23 10/27/23 History Allergy/AdvReac Type Severity Reaction Status Date / Time atorvastatin (From Lipitor) AdvReac Other Verified 10/28/23 08:35 Family History Father Heart problem Brother Diabetes Brother Diabetes Sister Diabetes Sister Paroxysmal supraventricular tachycardia Sister Tachycardia Mother Colon polyps Grandmother Stomach cancer Surgical History Hx of dilation and curettage Hx of colonoscopy History of lobectomy of thyroid (~09/10/20) History of left knee surgery History of cholecystectomy Social History household members: spouse current occupational status: employed Smoking Status: Never smoker alcohol intake: never substance use type: does not use ROS Review of Systems ROS Unobtainable: other Constitutional Constitutional: Denies fatigue, fever(s), poor appetite, weight gain or weight loss ENT HEENT: Denies mouth lesions Cardiovascular Cardiovascular: Denies abdominal bloating, abdominal edema or abdominal pain Respiratory/Chest Respiratory/Chest: Denies change in mental status, change in phlegm color, chest congestion or chest tightness Gastrointestinal Gastrointestinal: Denies belching, bloating, change in bowel habits, change in stool character, chewing difficulty, coffee ground emesis, constipation, cramping, diarrhea, dyspepsia, dysphagia, early satiety, excessive flatus, fecal incontinence, heartburn, hematemesis, hematochezia, hemorrhoids, loose stools, melena, nausea, odynophagia, rectal bleeding, tenesmus, vomiting or weight changes Genitourinary Genitourinary: Denies abdominal discomfort, burning urination or itching Musculoskeletal Musculoskeletal: Reports as per HPI; Denies muscle weakness or myalgias Integumentary Integumentary: Denies jaundice Neurologic Neurologic: Denies lack of coordination or weakness Psychiatric Psychiatric: Denies confusion, depression, memory loss, mood swings, paranoia or suicidal ideation Endocrine Endocrinology: Denies systems reviewed and no addt'l complaints, except as documented Hematologic/Lymphatic Hematologic/Lymphatic: Denies anemia, easy bleeding, easy bruising or lymphadenopathy Allergic/Immunologic Allergic/Immunologic: Denies systems reviewed and no addt'l complaints, except as documented Vital Signs Vital Signs Vital Signs: 10/28/23 08:36 10/28/23 08:36 Temperature 97.9 F Temperature Source Temporal Pulse Rate 97 Respiratory Rate 16 Respiratory Pattern Normal Blood Pressure 120/66 Blood Pressure Mean 84 Blood Pressure Source Monitor Blood Pressure Position Semi-Fowlers Blood Pressure Location Left Arm Pulse Ox 98 Oxygen Delivery Method Room Air Weight Weight: 164 lb Body Mass Index (BMI) 28.1 Physical Exam Const alert General Appearance: cooperative Orientation / Consciousness: oriented to person HEENT hearing grossly normal bilaterally Head and Scalp: normal to inspection Face and Sinus: face symmetric Nose: external nose normal Mouth: oral and palatal mucosa normal Eyes conjunctivae normal General Eye: normal appearance of both eyes Neck full ROM General: normal visual inspection Lymph Lymphatic: no lymphadenopathy noted Chest inspection of chest normal and palpation of chest normal Chest: symmetrical chest wall rise Resp normal respiratory effort Effort and Inspection: able to speak in complete sentences Cardio regular rate GI non-distended Percussion: normal to percussion Rectal Exam: deferred Neuro Speech: speech normal Gait (Neuro): normal gait Assessment & Plan Assessment/Plan (1) Encounter for screening for malignant neoplasm of colon: PLAN: She will undergo screening colonoscopy. She was explained alternatives, risk, benefits including not withstanding bleeding, infection, sepsis, perforation, need for emergent urgent . She will have an ASA of 3.
[2023-10-28 09:50] VITALS: BP 120/66; BP 95/58; PULSE 55; RESP 16; TEMP 36.3; O2SAT 99
[2023-10-28 09:55] VITALS: BP 120/66; BP 97/57; PULSE 51; RESP 16; O2SAT 100
--- NOTE | 2023-10-28 09:57 | OP.CCLET_ITS ---
10/28/2023 Nehal Vu Re : Colonoscopy procedure for Basilia Kennedy Dear Horace This procedure was performed on October. My impressions and recommendations are as follows: Impressions : - Diverticulosis in the recto-sigmoid colon, in the sigmoid colon and in the descending colon. - The examination was otherwise normal on direct and retroflexion views. - No specimens collected. Recommendations : - Discharge patient to home. - Resume previous diet. - Continue present medications. - Repeat colonoscopy in 10 years for screening purposes. My findings are described in the full procedure note, which is enclosed. If I can be of further assistance, please feel free to contact me at . Sincerely, Antonio John, 10/28/2023 9:57:12 AM This report has been signed electronically.
--- NOTE | 2023-10-28 09:57 | OP.COLON_ITS ---
Patient Name: Basilia Kennedy Procedure Date: 10/28/2023 9:23 AM Date of : 1955 Age: 68 Procedure: Colonoscopy Indications: Screening for colorectal malignant neoplasm Providers: Antonio John DO Medicines: Monitored Anesthesia Care Patient Profile: This is a 68 year old female. Refer to note in patient chart for documentation of history and physical. Last Colonoscopy: date unknown. Unable to locate last colonoscopy report. Complications: No immediate complications. Procedure: Pre-Anesthesia Assessment: - Prior to the procedure, a History and Physical was performed, and patient medications and allergies were reviewed. The patient is competent. The risks and benefits of the procedure and the sedation options and risks were discussed with the patient. All questions were answered and informed consent was obtained. Patient identification and proposed procedure were verified by the physician in the pre-procedure area. Mental Status Examination: alert and oriented. Airway Examination: normal oropharyngeal airway and neck mobility. Respiratory Examination: clear to auscultation. CV Examination: normal. Prophylactic Antibiotics: The patient does not require prophylactic antibiotics. Prior Anticoagulants: The patient has taken no anticoagulant or antiplatelet agents. ASA Grade Assessment: II - A patient with mild systemic disease. After reviewing the risks and benefits, the patient was deemed in satisfactory condition to undergo the procedure. The anesthesia plan was to use monitored anesthesia care (MAC). Immediately prior to administration of medications, the patient was re-assessed for adequacy to receive sedatives. The heart rate, respiratory rate, oxygen saturations, blood pressure, adequacy of pulmonary ventilation, and response to care were monitored throughout the procedure. The physical status of the patient was re-assessed after the procedure. After I obtained informed consent, the scope was passed under direct vision. Throughout the procedure, the patient's blood pressure, pulse, and oxygen saturations were monitored continuously. The colonoscope was introduced through the anus and advanced to the cecum, identified by appendiceal orifice and ileocecal valve. The colonoscopy was performed without difficulty. The patient tolerated the procedure well. The quality of the bowel preparation was adequate. The ileocecal valve, appendiceal orifice, and rectum were photographed. The quality of the bowel preparation was adequate. The ileocecal valve, appendiceal orifice, and rectum were photographed. Scope In: 9:33:49 AM Scope Withdrawal Time 0 hours 8 minutes 9 seconds Scope Out: 9:44:52 AM Total Procedure Duration Time 0 hours 11 minutes 3 seconds Findings: The perianal and digital rectal examinations were normal. A few small-mouthed diverticula were found in the recto-sigmoid colon, sigmoid colon and descending colon. The exam was otherwise without abnormality on direct and retroflexion views. Impression: - Diverticulosis in the recto-sigmoid colon, in the sigmoid colon and in the descending colon. - The examination was otherwise normal on direct and retroflexion views. - No specimens collected. Recommendation: - Discharge patient to home. - Resume previous diet. - Continue present medications. - Repeat colonoscopy in 10 years for screening purposes. Procedure Code(s): --- Professional --- G0121, Colorectal cancer screening; colonoscopy on individual not meeting criteria for high risk CPT copyright 2021 [employer]. All rights reserved. The codes documented in this report are preliminary and upon supervisor floor assembly review may be revised to meet current compliance requirements. Antonio John DO 10/28/2023 9:57:12 AM This report has been signed electronically. Number of Addenda: 0 Note Initiated On: 10/28/2023 9:23 AM
[2023-10-28 09:58] VITALS: BP 106/53; BP 120/66; PULSE 46; RESP 16; TEMP 36.6; O2SAT 99
--- NOTE | 2023-10-28 09:58 | PCM.POST.ANE ---
Anesthesia: Postop Eval I Current Vital Signs Temperature: 97.4 F Pulse Rate: 52 Blood Pressure: 95/58 Respiratory Rate: 14 Pulse Ox: 99 Oxygen Delivery Method: Room Air Assessment Airway patent: Yes Spontaneous unlabored respirations: Yes Mental status: Asleep nausea: No Vomiting: No Anesthesia Complication: No Fluid Hydration Crystalloid volume administer (ml): 500 Total IV fluid infused: 500 Progress Note Anesthesia document: Postop Eval 1 completed: Yes
[2023-10-28 10:00] VITALS: BP 95/58; PULSE 52; RESP 14; TEMP 36.3; O2SAT 99
--- NOTE | 2023-10-28 10:34 | PCM.POSTANE2 ---
Anesthesia Postop Eval I Sum Postop Eval Completion status Anesthesia document: Postop Eval 1 completed: Yes Anesthesia Postop Eval I Summary Anesthesia Postop Eval I Summary: Anesthesia Postop Eval I: Assessment Summary Airway patent Yes 10/28/23 10:00 [email or web address] Spontaneous unlabored Yes 10/28/23 10:00 [email or web address] respirations Mental status Asleep 10/28/23 10:00 [email or web address] nausea No 10/28/23 10:00 [email or web address] Vomiting No 10/28/23 10:00 [email or web address] Anesthesia Postop Eval I: Fluid Summary Crystalloid volume administer 500 10/28/23 10:00 [email or web address] (ml) Colloids volume administered ( ml) Blood Product volume administered (ml) Total IV fluid infused 500 10/28/23 10:00 [email or web address] Anesthesia Postop Eval I: Summary Notes Anesthesia Complication No 10/28/23 10:00 [email or web address] Anesthesia Complication Comment: Post-operative progress note Anesthesia: Postop Eval II Evaluation Mental status: Awake Pain Level: 0 nausea: No Vomiting: No
== END 2023-10-28 10:35 | disposition home or self-care (01) ==
LOC: EN 08:22 → AC 08:24
PROVIDERS: PCP Internal Medicine; Referring Provider Internal Medicine; Visit Provider Internal Medicine Gastroenterology
PROC: 0DJD8ZZ Inspection of Lower Intestinal Tract, Via Natural or Artificial Opening Endoscopic (ICD-10-PCS; CPT 45378; principal; 2023-10-28 09:25)
DX: Z12.11 Encounter for screening for malignant neoplasm of colon (principal); K57.30 Diverticulosis of large intestine without perforation or abscess without bleeding; E78.2 Mixed hyperlipidemia; Z80.0 Family history of malignant neoplasm of digestive organs; I10 Essential (primary) hypertension; I25.2 Old myocardial infarction; Z79.899 Other long term (current) drug therapy; Z90.49 Acquired absence of other specified parts of digestive tract
CPT/HCPCS: G0121; J7120; J2405

== ENCOUNTER → 2024-07-11 | Outpatient (CLI) | payer MEDICARE, OTHER, SELFPAY ==
--- NOTE | 2024-07-11 08:01 | BI_ITS ---
EXAM: SCRN MAMM (CAD)W/ADI BILAT DATE: 07/11/2024 CLINICAL HISTORY: F, Age 69 y/o , SCRN MAMM (CAD)W/ADI BILAT TECHNIQUE: Bilateral screening digital breast tomosynthesis with 2D and 3D images. Computer aided detection. COMPARISON: Prior exam(s) dated prior study dated January 25, 2023.. FINDINGS: TISSUE DENSITY: The breast tissue is extremely dense which lowers the sensitivity of mammography. Bilateral Breast Mammographic Findings: No significant masses, calcifications or other abnormalities are identified. BI/SCRN MAMM (CAD)W/ADI BILAT IMPRESSION: Right Breast: BIRADS 1 NEGATIVE. Left Breast: BIRADS 1 NEGATIVE. OVERALL FINAL ASSESSMENT: BIRADS 1 NEGATIVE RECOMMENDATION: Routine annual follow-up in 1 Year A letter with findings and recommendations will be mailed to the patient. Reading Location: [id number]
--- NOTE | 2024-07-11 08:01 | BD_ITS ---
PROCEDURE: DEXA BONE DENSITY STUDY 07/11/2024 REASON FOR EXAM: F, age 69 y/o . Postmenopausal. TECHNIQUE: DXA scan of the lumbar spine and left hip, using make and model. [facility] Position[facility] COMPARISON: Comparison is made with prior study dated January 21, 2022. FINDINGS: BMD and T-SCORES Lumbar spine: 0.855 g/cm2, T-Score -1.7 L1 through L4 Change from prior: Improvement of 1%. Left femoral neck: 0.773 g/cm2, T-Score -0.7 Femoral neck comparison data not recommended for monitoring change. Left total hip: 0.853 g/cm2, T-Score -0.7 Change from prior: Improvement by 0.8% Right femoral neck: 0.732 g/cm2, T-Score -1.1 Femoral neck comparison data not recommended for monitoring change. Right total hip: 0.872 g/cm2, T-Score -0.6 Change from prior: Loss of 4.1% The patient doesmeet the pharmacological treatment recommendations for prevention of osteoporosis BD/Dexa Bone Density Study IMPRESSION: OSTEOPENIA. Recommend follow-up as clinically warranted. Reading Location: [facility]
== END | disposition home or self-care (01) ==
LOC: OPBD 07:59
PROVIDERS: PCP Internal Medicine; Referring Provider Internal Medicine; Visit Provider Internal Medicine
DX: Z12.31 Encounter for screening mammogram for malignant neoplasm of breast (principal); Z78.0 Asymptomatic menopausal state
CPT/HCPCS: 77063; 77067; 77080

== ENCOUNTER → 2024-12-20 | Outpatient (CLI) | payer MEDICARE, OTHER, SELFPAY | END | disposition home or self-care (01) | LOC: PSN 08:46 | PROVIDERS: PCP Internal Medicine; Referring Provider Internal Medicine; Visit Provider Internal Medicine | DX: R00.0 Tachycardia, unspecified (principal) | CPT/HCPCS: 93225; 93226 ==

== ENCOUNTER 2024-12-21 16:20 | Emergency (ER) | payer MEDICARE, OTHER, SELFPAY ==
[2024-12-21] VITALS (7 sets, daily range): BP systolic 119–148; BP diastolic 60–75; PULSE 48–63; RESP 16; TEMP 36.7–36.8; O2SAT 93–100; BMI 29.9
--- NOTE | 2024-12-21 16:40 | RAD_ITS ---
PROCEDURE: RIGHT SHOULDER MIN 2 VIEWS 12/21/2024 REASON FOR EXAM: PAIN, TRAUMA TECHNIQUE: Procedure Code: RADSH Modality: DX Procedure: SHOULDER MIN 2 VIEWS Laterality: Right COMPARISON: None. FINDINGS: Anterior inferior dislocation of the right glenohumeral joint. No acute fracture appreciated on these images. Right AC joint is intact. Normal bone mineralization. Grossly unremarkable soft tissues. RAD/Shoulder min 2 Views IMPRESSION: Anterior right glenohumeral joint dislocation. No fracture appreciated. Reading Location: [facility]
--- NOTE | 2024-12-21 16:43 | EX.ED.UPPERE ---
HPI History of Present Illness Chief Complaint: Upper Extremity Injury Narrative Narrative: Chief complaint and HPI: 69-year-old female with past medical history of hypothyroidism, HTN presents for evaluation of right shoulder pain after an injury. Patient states she fell in her house in which she hit her right shoulder on the back of the sofa. Has obvious deformity to the right shoulder with pain. Denies any numbness or tingling. Denies any pain in the elbow or clavicle. Not on blood thinners. Review of systems: See HPI Medications: As listed on the chart Allergies: As listed on the chart PFSH: Per chart Vital signs: As listed on the chart. Reviewed. Physical exam: Gen: A&O x3, NAD Head: Normocephalic, atraumatic Eyes: No sclera icterus, conjunctiva clear ENT: Moist mucous membranes Neck: Trachea midline, No JVD, full range of motion, nontender CV: Regular rate, clavicles and chest wall nontender to palpation Resp: Nonlabored respirations Musc: Obvious deformity to the right shoulder, right shoulder tender to palpation along with proximal. Mid/distal arm, elbow, forearm, wrist, hand, fingers nontender to palpation with full range of motion, no ecchymosis or lacerations, good capillary refill, radial pulse +2, sensation intact, compartments soft Skin: Warm, dry Neuro: Alert, oriented, grossly intact, sensation intact Psych: Cooperative, appropriate mood and affect [facility] Medical History Wears glasses Anxiety Thyroid disease Back pain History of diverticulitis Non-smoker History of echocardiogram Cardiology follow-up encounter Hx of colonic polyp HTN (hypertension) History of Sarah thyroiditis History of left heart catheterization (LHC) (~03/09/18) Multiple thyroid nodules Mixed hyperlipidemia Non-ST elevation (NSTEMI) myocardial infarction Palpable abdominal aorta Abnormal cardiac enzyme level Palpitations Prediabetes Epigastric pain Syncope Home Medications ?Medication ?Instructions ?Recorded ?Last Taken ?Type multivitamin 1 ea PO DAILY 03/08/18 12/21/24 History cholecalciferol (vitamin D3) 25 25 mcg PO DAILY 07/04/21 12/21/24 History mcg (1,000 unit) capsule levothyroxine 75 mcg tablet 88 mcg PO DAILY 07/04/21 12/21/24 History metoprolol tartrate 25 mg tablet 25 mg PO DAILY 10/29/22 12/21/24 History magnesium 250 mg tablet 250 mg PO DAILY 10/26/23 12/21/24 History ondansetron 4 mg disintegrating 4 mg PO Q8H PRN PRN Nausea #10 tabs 12/21/24 Unknown Rx tablet oxycodone 5 mg capsule 5 mg PO Q6H PRN pain 3 days #12 12/21/24 Unknown Rx caps Allergy/AdvReac Type Severity Reaction Status Date / Time atorvastatin (From Lipitor) AdvReac Other Verified 12/21/24 16:23 Family History Father Heart problem Brother Diabetes Brother Diabetes Sister Diabetes Sister Paroxysmal supraventricular tachycardia Sister Tachycardia Mother Colon polyps Grandmother Stomach cancer Surgical History Hx of dilation and curettage Hx of colonoscopy History of lobectomy of thyroid (~09/10/20) History of left knee surgery History of cholecystectomy Social History household members: spouse current occupational status: employed Smoking Status: Never smoker alcohol intake: never substance use type: does not use EXAM Physical Exam Const Vital Signs: 12/21/24 16:21 Temperature 98.2 F Temperature Source Oral Pulse Rate 53 L Respiratory Rate 16 Blood Pressure 148/68 H Blood Pressure Mean 94 Pulse Ox 97 Oxygen Delivery Method Room Air MDM MDM MDM Narrative Medical decision making narrative: 69-year-old female with past medical history of hypothyroidism, HTN presents for evaluation of right shoulder pain after an injury. Patient states she fell in her house in which she hit her right shoulder on the back of the sofa. Has obvious deformity to the right shoulder with pain. Denies any numbness or tingling. Denies any pain in the elbow or clavicle. Not on blood thinners. Differential diagnosis includes but is not limited to right humerus fracture, right shoulder dislocation. [place] ordered for pain. X-ray of the shoulder ordered. X-ray of the shoulder was personally reviewed and interpreted by me, ED physician. Patient has an anterior shoulder dislocation without obvious fracture. Radiology in agreement. Patient will warrant procedural sedation for reduction. She tolerated this well. Repeat x-ray of the shoulders personally viewed interpreted by me, ED physician. Successful reduction. Per radiology there is a probable subtle Hill-Sachs impaction fracture of the superior lateral humeral head. Patient is nonweightbearing to the right upper extremity. Sling and swath to remain on at all times. Follow-up with orthopedic surgery. Tylenol Motrin as needed for pain. Zofran for nausea. Return precautions explained. She confirmed understand the plan. Patient will discharge home. Procedural Sedation Consent: Risks, benefits, and alternatives discussed with patient and consent obtained Procedure: Immediately prior to procedure a time out was performed to verify the correct patient, procedure, equipment, network support manager and site/side marked as required Medication IV: 80 mg of propofol and 50 mg fentanyl Complication: Tolerated well without complication. No hypoxic episodes. Time: Total intra-service time with patient was 6 minutes Joint Reduction Indication: Right anterior shoulder dislocation Consent: Risks, benefits, and alternatives discussed with patient and consent obtained Procedure: The patient was given a total of 80 mg of propofol and 50 mg fentanyl for adequate procedural sedation. The dislocation was reduced to the best of my abilities utilizing traction and rotation technique. Following reduction, immobilization was performed and the extremity's neurovascular status was re-checked and was unchanged from the pre-procedure exam. The patient tolerated the procedure without complications. Impression: 1. Right anterior shoulder dislocation, status post reduction 2. Right probable subtle Hill-Sachs impaction fracture of the superior lateral humeral head Discharge Plan Triage Chief Complaint: Upper Extremity Injury ED Provider: Daniel Arechiga Dx/Rx/DC Orders Clinical Impression: Anterior shoulder dislocation, Hill Sachs deformity, right Instructions: ED Dislocation: Shoulder (Reduced) Prescriptions: New ondansetron 4 mg tablet,disintegrating 4 mg PO Q8H PRN PRN (Reason: Nausea) Qty: 10 0RF oxycodone 5 mg capsule 5 mg PO Q6H PRN (Reason: pain) 3 Days Qty: 12 0RF No Action levothyroxine 75 mcg tablet 88 mcg PO DAILY cholecalciferol (vitamin D3) 25 mcg (1,000 unit) capsule 25 mcg PO DAILY metoprolol tartrate 25 mg tablet 25 mg PO DAILY multivitamin 1 EACH tablet 1 ea PO DAILY magnesium 250 mg tablet 250 mg PO DAILY Primary Care Provider: Nehal Vu Referrals: Nehal Vu MD [Primary Care Provider] - 3-5 Days Luc Beck DO [Med Staff - Active Staff] - 3-5 Days Activity Restrictions/Additional Instructions: Wear sling and swath at all times. Follow-up with orthopedic surgery. Call tomorrow to make an appointment. Tylenol and Motrin as needed for pain. Narcotics for severe pain. Zofran as needed for nausea. Nonweightbearing to the right upper extremity. Return back to ED symptoms change or worsen. Print Language: Portuguese Disposition Disposition: Home, Self Care
[2024-12-21] MEDS: HYDROcodone Bitartrate/Apap 5/325 Tablet PO (16:49)
[2024-12-21] MEDS: fentaNYL 100 MCG/2 ML Ampul 50 MCG IV (18:12)
--- NOTE | 2024-12-21 18:20 | RAD_ITS ---
PROCEDURE: RIGHT SHOULDER MIN 2 VIEWS 12/21/2024 REASON FOR EXAM: STATUS POST REDUCTION TECHNIQUE: Procedure Code: RADSH Modality: DX Procedure: SHOULDER MIN 2 VIEWS Laterality: Right COMPARISON: Earlier same day 12/21/2024. FINDINGS: Status post successful closed reduction of the previous anterior glenohumeral dislocation, with restored anatomic alignment. Right AC joint is intact. There may be a subtle Hill-Sachs fracture deformity at the superolateral aspect of the humeral head, otherwise no acute fracture is seen. RAD/Shoulder min 2 Views IMPRESSION: Successful closed reduction of the previous anterior shoulder dislocation. Probable subtle Hill-Sachs impaction fracture of the superolateral humeral head . Reading Location: [facility]
== END 2024-12-21 19:56 | disposition home or self-care (01) ==
PROVIDERS: Emergency Provider Surgery; PCP Internal Medicine; Visit Provider Surgery
DX: S43.014A Anterior dislocation of right humerus, initial encounter (principal); I10 Essential (primary) hypertension; E78.2 Mixed hyperlipidemia; W08.XXXA Fall from other furniture, initial encounter; Y92.019 Unspecified place in single-family (private) house as the place of occurrence of the external cause; I25.2 Old myocardial infarction; Z87.19 Personal history of other diseases of the digestive system; Z90.49 Acquired absence of other specified parts of digestive tract; E03.9 Hypothyroidism, unspecified
CPT/HCPCS: 23650; 73030; 99285; A4216

== ENCOUNTER → 2025-02-01 | Outpatient (CLI) | payer MEDICARE, OTHER, SELFPAY ==
--- NOTE | 2025-02-01 06:34 | ECHOD_ITS ---
Reason For Study Reason For Study: ARRYTHMIA Procedure This was a 2D Doppler, Color Flow transthoracic echocardiogram. Exam performed in department. Left Ventricle Normal size and thickness. The left ventricular ejection fraction is 65 %. Right Ventricle Normal right ventricle. Atria The left and right atria are normal. Mitral Valve Mild (1+) posteriorly directed mitral valve insufficiency. Tricuspid Valve Trivial tricuspid valve insufficiency. Unable to estimate RV systolic pressure due to insufficient tricuspid regurgitant envelope. Aortic Valve Mild focal aortic valve calcification. Trivial aortic valve insufficiency. Pulmonic Valve The pulmonic valve is not well visualized. Trivial pulmonic valve insufficiency. Great Vessels Normal sized aortic root. Pericardium/Pleural No pericardial effusion. MMode/2D Measurements & Calculations LVIDd: 5.1 cm IVSd: 0.73 cm LVOT diam: 2.0 cm LVIDs: 2.8 cm LVPWd: 0.84 cm LVOT area: 3.3 cm2 RVDd: 3.3 cm FS: 44.6 % Ao root diam: 3.1 cm LAV(MOD-bp): 47.2 ml LVAd ap4: 27.1 cm2 LAV(MOD-bp) Indexed: 25.9 ml/m2 LVLd ap4: 8.1 cm LAV(MOD-sp2): 48.2 ml EDV(MOD-sp4): 79.9 ml LAV(MOD-sp4): 41.6 ml EDV(sp4-el): 77.1 ml LVAs ap4: 11.2 cm2 LVLs ap4: 5.8 cm ESV(MOD-sp4): 18.3 ml ESV(sp4-el): 18.5 ml EF(MOD-sp4): 77.1 % EF(sp4-el): 76.0 % SV(MOD-sp4): 61.6 ml SV(sp4-el): 58.6 ml LA A4 area: 16.9 cm2 SI(MOD-sp4): 33.7 ml/m2 LA dimension(2D): 3.6 cm RA A4 area: 13.3 cm2 Time Measurements MV dec time: 0.22 sec Doppler Measurements & Calculations MV E max alexa: 76.6 cm/sec MV V2 max: 80.5 cm/sec MV dec slope: 353.2 cm/sec2 MV A max alexa: 53.8 cm/sec MV max P.6 mmHg MV E/A: 1.4 MV V2 mean: 45.3 cm/sec MV mean P.98 mmHg MV V2 VTI: 29.0 cm Ao V2 max: 149.7 cm/sec PA V2 max: 102.8 cm/sec Ao max P.0 mmHg PA V2 mean: 79.5 cm/sec Ao V2 mean: 101.0 cm/sec Ao mean P.8 mmHg Ao V2 VTI: 35.6 cm ECHO/Echo Complete Interpretation Summary The left ventricular ejection fraction is 65 %. Mild (1+) posteriorly directed mitral valve insufficiency. Mild focal aortic valve calcification. Ordering Physician: Elidia Torres Referring Physician: Elidia Torres Performed By: Alessandra Del Rio RCS
--- OUTSIDE RECORDS SUMMARY | 2025-02-01 06:38 | XMS RPT_ITS | CCD ---
Author Organization [facility] CliniSyin Care Team Providers Care Multicut Line Operator Name Role Phone Nehal Vu Unavailable Emily Yuen Unavailable Shaneka Summers Unavailable TIMMY Briceño Unavailable Unavailable Nina Estrada Unavailable Unavailable Unavailable Unavailable Emily Yuen Unavailable Unavailable Nehal Vu Unavailable Unavailable Nehal Vu Unavailable Unavailable Nehal Vu Unavailable Emily Yuen Unavailable Shaneka Summers Unavailable TIMMY Briceño Unavailable Unavailable Unavailable Unavailable Latisha Estradasea Unavailable Unavailable Lyndon Wan Unavailable bryn Juarez Unavailable Unavailable Shannno Elkins Unavailable Unavailable Belia Cullen Unavailable Unavailable Unavailable Gravius, Malka Unavailable Unavailable Natalie Nina Unavailable Unavailable TIMMY Briceño Unavailable Unavailable Pb Smith Unavailable Lee Sutton Unavailable Unavailable Emily Yuen Unavailable Unavailable Primary Care Provider Unavailabl e Unavailable Unavailable Nehal Vu Primary Care Provider Jaspreet Armenta Unavailable Emerson Thrasher Unavailable Nehal Vu MD Unavailable Emily Yuen DO Unavailable Pb Smiht MD Unavailable Dr. Shaneka Summers MD Unavailable Dr. Lyndon Wan Unavailable Navarro MACHINE PACKAGING TECHNICIAN, TIMMY Unavailable Unavailable Manchak SUPERVISORY CIVIL ENGINEER, Nina Unavailable Unavailable Dawit Elkinsssica Unavailable Unavailable Unavailable Unavailable Ankit SUPERVISORY CIVIL ENGINEER, Kely Unavailable Unavailabl e Dr. Nehal Vu Primary Care Provider Dr. Nehal Vu Referring Provider Brian CRIBBER, CRIBBERKyC Elidia Attending Provider Dr. Emerson Thrasher Attending Provider Nehal Vu MD Unavailable Herman TALAMANTESN, Lee Unavailable Unavailable Bony MACHINE PACKAGING TECHNICIAN, Teresa Unavailable Unavailable Unavailable Unavailable Unavailable Unavailable Nehal Vu MD Attending Unavailable Nehal Vu MD Referring Unavailable Nehal Vu MD Consulting Unavailable Nehal Vu MD Unavailable Emily Yuen DO Unavailable Pb Smith MD Unavailable Dr. Shaneka Summers MD Unavailable Dr. Lyndon Wna Unavailable Bony MACHINE PACKAGING TECHNICIAN, Teresa Unavailable Unavailable Manchak DOMENICO, Nina Unavailable Unavailable Shannon Elkins Unavailable Unavailable Unavailable Unavailable Dr. Nehal Vu Primary Care Provider Dr. Nehal Vu Referring Provider Acacia JACOBS, REYNALDO Castellanos Attending Provider Dr. Sudeep Holloway Attending Provider Dr. Nehal Vu MD Primary Care Provider [phone] Dr. Nehal Vu MD Attending Provider Dr. Nehal Vu MD Referring Provider Horace RAYMOND, Dr. Calvetr Primary Care Provider Horace RAYMOND, Dr. Calvert Attending Provider [phone] Horace RAYMOND, Dr. Calvert Referring Provider [phone] Geni VILLATORO, Dr. Sanchez Emergency Provider Horace RAYMOND, Dr. Calvert Primary Care Physician [phone] Horace RAYMOND, Dr. Calvert Attending Physician [phone] Cory RAYMOND, Dr. Cobos Attending Physician Geni VILLATORO, Dr. Sanchez [facility] Brian CRIBBER-C, Elidia Attending Physician Bonezzi, Nehal Referring Unavailable Bonezzi, Nehal Primary Care Unavailable Bonezzi, Nehal Attending Unavailable Bonezzi, Nehal Primary Care Unavailable Klustgalina-NicDaniel Attending Unavailabl e Bonezzi, Nehal Primary Care Unavailable Brian CRIBBER, Elidia Attending Unavailable Brian CRIBBER, Elidia Referring Unavailable Bonezzi, Nehal Primary Care Unavailable Brian PAEZ, Elidia Attending Unavailable Bonezzi, Nehal Referring Unavailable Bonezzi, Nehal Referring Unavailable Bonezzi, Nehal Primary Care Unavailable Bonezzi, Nehal Attending Unavailable Allergies Allergy Classification Reported Allergen(s) Allergy Type Date of Onset Reaction(s) Facility HMG-CoA Reductase Inhibitors (statins) (7 sources) atorvastatin; Translations: [Lipitor *ANTIHYPERLIPIDE MICS*] Drug Allergy [facility] Work Phone: Comment on above: tired fatigue mental fog (20 sources) atorvastatin; Translations: [Lipitor *ANTIHYPERLIPIDE MICS*] Drug Allergy 4 Other [facility] Work Phone: Comment on above: tired fatigue mental fog Fatigue, mental fog (1 source) atorvastatin Drug Allergy 5 [facility] NEGATED: Highlighted row has been ruled out! (1 source) Allergy to substance (finding) [facility]; [facility] Work Phone: NEGATED: Highlighted row has been ruled out! (1 source) Allergy to drug (finding) [facility]; [facility] Work Phone: NEGATED: Highlighted row has been ruled out! (1 source) Allergy to substance (finding) [facility]; [facility] Work Phone: NEGATED: Highlighted row has been ruled out! (1 source) Allergy to drug (finding) [facility]; [facility] Work Phone: NEGATED: Highlighted row has been ruled out! (1 source) Allergy to substance (finding) [facility]; [facility] Work Phone: NEGATED: Highlighted row has been ruled out! (1 source) Allergy to drug (finding) [facility]; [facility] Work Phone: NEGATED: Highlighted row has been ruled out! (1 source) Allergy to substance (finding) [facility]; [facility] Work Phone: NEGATED: Highlighted row has been ruled out! (1 source) Allergy to drug (finding) [facility]; [facility] Work Phone: NEGATED: Highlighted row has been ruled out! (1 source) Allergy to substance (finding) [facility]; [facility] Work Phone: NEGATED: Highlighted row has been ruled out! (1 source) Allergy to drug (finding) [facility]; [facility] Work Phone: NEGATED: Highlighted row has been ruled out! (1 source) Allergy to substance (finding) [facility]; [facility] Work Phone: NEGATED: Highlighted row has been ruled out! (1 source) Allergy to drug (finding) [facility]; [facility] Work Phone: NEGATED: Highlighted row has been ruled out! (1 source) Allergy to substance (finding) 9 [facility]; [facility] Work Phone: NEGATED: Highlighted row has been ruled out! (1 source) Allergy to drug (finding) 9 [facility]; [facility] Work Phone: Medications Current Medications Medication Drug Class(es) Dates Sig (Normalized) Sig (Original) cholecalciferol 0.025 mg oral capsule (20 sources) Vitamin D Start: 02-14-2021 take 1 capsule by mouth once daily Cholecalciferol (Vitamin D3) 25 mcg (1,000 unit) capsule Active 25 ug PO DAILY July 04, 2021 12:00am Complies with drug therapy Start: 05-05-2016 End: 09-08-2016 ezetimibe 10 mg oral tablet (2 sources) Dietary Cholesterol Absorption Inhibitor Start: 01-04-2025 take 1 tablet by mouth once daily Ezetimibe (Zetia) 10 mg tablet Active 10 mg PO daily January 04, 2025 12:00am Complies with drug therapy Start: 01-04-2025 take 1 tablet by rogers th once daily Ezetimibe (Zetia) 10 mg tablet Active 10 mg PO daily January 04, 2025 12:00am Complies with drug therapy levothyroxine sodium 0.088 m g oral tablet (20 sources) l-Thyroxine Start: 01-25-2023 Start: 07-06-2022 Start: 12-16-2021 take 1 tablet by rogers th in the morning Levothyroxine Sodium 88 MCG Oral Tablet 1 (one) Tablet in am for 0 days Quantity: 30 {Tablet} Refills: 6 Ordered: 16-Dec-2021 Nehal Vu MD, MD, Nehal Castellanos Start : 16-Dec-2021 Active Start: 07-04-2021 Levothyroxine 75 mcg tablet Active 88 ug PO DAILY July 04, 2021 2:04pm Complies with drug therapy Start: 07-04-2021 take 88 ug by mouth once daily Levothyroxine Active 88 MCG PO DAILY July 04, 2021 2:04pm Start: 05-17-2021 take 1 tablet by rogers th in the morning Levothyroxine Sodium 88 MCG Oral Tablet 1 (one) Tablet in am for 0 days Quantity: 30 {Tablet} Refills: 6 Ordered: 17-May-2021 Horace RAYMOND, Nehal Collins MD Start : 17-May-2021 Active Start: 02-14-2021 take 1 tablet by rogers th in the morning Levothyroxine Sodium 88 MCG Oral Tablet 1 (one) Tablet in am for 0 days Quantity: 30 {Tablet} Refills: 6 Ordered: 14-Feb-2021 Horace RAYMOND, Nehal oCllins MD Start : 14-Feb-2021 Active Start: 09-25-2020 End: 07-04-2021 take 1 tablet by mouth once daily Levothyroxine 75 mcg tablet Discontinued 75 ug PO DAILY September 25, 2020 12:00am July 04, 2021 2:06pm Magnesium (4 sources) Start: 10-26-2023 take 1 tablet by rogers once daily Magnesium 250 mg tablet Active 250 mg PO DAILY October 26, 2023 12:00am Complies with drug therapy Start: 10-26-2023 take 1 tablet by rogers once daily Magnesium 250 mg tablet Active 250 mg PO DAILY October 26, 2023 12:00am metoprolol tartrate 25 mg oral tablet (20 sources) beta-Adrenergic Kenrick Start: 08-14-2022 take 1 tablet by mouth once daily Metoprolol Tartrate 25 mg tablet Active 25 mg PO DAILY October 29, 2022 8:44am Complies with drug therapy Start: 07-06-2022 take 1 tablet by rogers once daily metoprolol tartrate 25 mg oral tablet 1 (one) Tablet qd for 30 days Quantity: 30 {Tablet} Refills: 6 Ordered: 06-Jul-2022 Horace RAYMOND, Nehal Collins MD Start : 06-Jul-2022 Active Start: 03-13-2022 take 1 tablet by rogers once daily metoprolol tartrate 25 mg oral tablet 1 (one) Tablet qd for 0 days Quantity: 30 {Tablet} Refills: 6 Ordered: 13-Mar-2022 Nehal Vu MD, MD, Dana M Start : 13-Mar-2022 Active Start: 12-05-2021 take 0.5 tablet by m outh once daily Metoprolol Tartrate 25 MG Oral Tablet 1/2 Tablet qd for 0 days Quantity: 30 {Tablet} Refills: 6 Ordered: 05-Dec-2021 Horace RAYMOND, Nehal Collins MD Start : 05-Dec-2021 Active Start: 02-14-2021 take 0.5 tablet by m outh once daily Metoprolol Tartrate 25 MG Oral Tablet 1/2 Tablet qd for 0 days Quantity: 30 {Tablet} Refills: 6 Ordered: 14-Feb-2021 Horace RAYMOND, Nehal Vu MD, Nehal Castellanos Start : 14-Feb-2021 Active Start: 11-20-2019 take 0.5 tablet by m outh once daily Metoprolol Tartrate 25 MG Oral Tablet 1/2 Tablet qd for 0 days Quantity: 30 {Tablet} Refills: 6 Ordered: 20-Nov-2019 Horace RAYMOND, Nehal Vu MD, Nehal Castellanos Start : 20-Nov-2019 Active Start: 03-10-2018 take 0.5 tablet by m outh once daily Metoprolol Tartrate 25 MG Oral Tablet 1/2 Tablet Tablet qd for 0 days Quantity: 30 {Tablet} Refills: 0 Ordered: 15-Mar-2018 Horace RAYMOND, Nehal Vu MD, Nehal Castellanos Start : 10-Mar-2018 Active Start: 03-09-2018 End: 10-29-2022 Metoprolol Tartrate 25 mg ta blet Discontinued 12.5 mg PO DAILY 45 3 November 21, 2019 10:27am October 29, 2022 8:46am Start: 03-09-2018 End: 10-29-2022 take 12.5 mg by mouth once daily Metoprolol Tartrate Discontinued 12.5 MG PO DAILY November 21, 2019 10:27am October 29, 2022 8:46am Multivitamin 1 EACH tablet (4 sources) Start: 03-08-2018 Multivitamin 1 EACH tablet Active 1 NMA PO DAILY March 08, 2018 1:00am Complies with drug therapy Start: 03-08-2018 Multivitamin 1 EACH tablet Active 1 NMA PO DAILY March 08, 2018 1:00am Multivitamin preparation (2 sources) Start: 03-08-2018 Multivitamin A ctive 1 EACH PO DAILY March 08, 2018 7:18pm Start: 03-08-2018 Multivitamin A ctive 1 EACH PO DAILY March 08, 2018 1:00am ondansetron 4 mg disintegrating oral tablet (3 sources) Serotonin-3 Receptor Antagonist Start: 12-21-2024 take 1 tablet by mouth every eight hours as needed for nausea Ondansetron 4 mg tablet,disintegrating Active 4 mg PO EVERY 8 HOURS NEEDED as needed for Nausea 10 0 December 21, 2024 12:00am Complies with drug therapy Completed/Discontinued Medications Medication Drug Class(es) Dates Sig (Normalized) Sig (Original) ALPRAZolam 0.5 mg oral tablet (20 sources) Benzodiazepine Start: 05-30-2021 End: 10-26-2023 take 1 tablet by mouth at bedtime as needed Alprazolam 0.5 mg tablet Discontinued 0.5 mg PO AT BEDTIME as needed July 04, 2021 12:00am October 26, 2023 8:51am Start: 02-14-2021 take 1 tablet by rogers th every six hours as needed for anxiety ALPRAZolam 0.5 MG Oral Tablet 1 (one) Tablet q 6 hours prn anxiety for 0 days Quantity: 30 {Tablet} Refills: 1 Ordered: 14-Feb-2021 Horace RAYMOND, Nehal Collins MD Start : 14-Feb-2021 Active Comments: Dx: F41.9 Disp: Thirty Start: 08-07-2020 ALPRAZolam 0.5 MG Oral Tablet 1 (one) Tablet q 6 hours prn anxiety for 0 days Quantity: 20 {Tablet} Refills: 1 Ordered: 07-Aug-2020 Horace RAYMOND, Nehal Collins MD Start : 07-Aug-2020 Active Comments: Dx: F41.9 Disp: twenty with one refill 08-07-20-erOARRS reviewed Start: 07-30-2020 take 1 tablet by rogers th every six hours as needed for anxiety ALPRAZolam 0.5 MG Oral Tablet 1 (one) Tablet q 6 hours prn anxiety for 0 days Quantity: 10 {Tablet} Refills: 0 Ordered: 30-Jul-2020 Horace RAYMOND, Nehal Collins MD Start : 30-Jul-2020 Active Comments: Dx: F41.9 Disp: 07-30-20 called to [facility] Start: 07-30-2020 take 1 tablet by rogers th every six hours as needed for anxiety ALPRAZolam 0.5 MG Oral Tablet 1 (one) Tablet q 6 hours prn anxiety for 0 days Quantity: 10 {Tablet} Refills: 0 Ordered: 30-Jul-2020 Nehal Vu MD, MD, Dana M Start : 30-Jul-2020 Active Comments: Dx: F41.9 Disp: 07-30-20 called to [facility] Comment on above: Dx: F41.9 Disp: called to [facility] Dx: F41.9 Disp: twen ty with one refill 08-07-20-erOARRS reviewed Dx: F41.9 Disp: Thir ty amoxicillin 875 mg / clavulanate 125 mg oral tablet (20 sources) Penicillin-class Antibacterial Start: 02-03-2018 End: 02-17-2018 Start: 02-03-2018 End: 02-17-2018 take 1 tablet by mouth twice daily Augmentin 875-125 MG Oral Tablet 1 Tablet Tablet bid for 14 days Quantity: 28 {Tablet} Refills: 0 Ordered: 03-Feb-2018 Nina Estrada CMA Start : 03-Feb-2018 End : 17-Feb-2018 Inactive Start: 04-19-2012 End: 05-03-2012 take 1 tablet by mouth twice daily AUGMENTIN, 875-125MG (Oral Tablet) 1 Tablet bid for 14 days Quantity: 28 {Tablet} Refills: 0 Ordered: 30-Aug-2012 Alyse HERNANDEZ Jacquelin Start : 19-Apr-2012 End : 03-May-2012 Inactive ascorbic acid 60 mg / beta carotene 5000 unt / copper sulfate 40 mg / dl-alpha tocopheryl acetate 30 unt / sodium selenite 0.04 mg / zinc oxide 40 mg oral tablet (20 sources) Vitamin C take 1 tablet by mouth once daily CENTRUM ADULTS (Oral Tablet) 1 qd Active atorvastatin 10 mg oral tablet (20 sources) HMG-CoA Reductase Inhibitor Start: 07-29-2018 End: 07-29-2018 Start: 06-08-2018 Lipitor 10 MG Oral Tablet 1 (one) Tablet at night for 0 days Quantity: 30 {Tablet} Refills: 6 Ordered: 08-Jun-2018 Horace RAYMOND, Nehal Vu MD, Nehal Castellanos Start : 08-Jun-2018 Active benzonatate 100 mg oral capsule (20 sources) Non-narcotic Antitussive Start: 04-19-2012 End: 08-30-2012 bifidobacterium animalis [id number] unt / lactobacillus acidophilus [id number] unt oral capsule (20 sources) take 1 capsule by mouth once daily Probiotic Daily Oral Capsule 1 qd Inactive take 1 capsule by mouth once chavo ly Probiotic Daily Oral Capsule 1 qd Inactive Centrum (7 sources) Centrum Adults (2 sources) take 1 tablet by mouth once daily CENTRUM ADULTS (Oral Tablet) 1 qd Active CENTRUM ADULTS (Oral Tablet) (20 sources) take 1 tablet by mouth once daily CENTRUM ADULTS (Oral Tablet) 1 qd Active ciprofloxacin 500 mg oral tablet (20 sources) Quinolone Antimicrobial Start: 6 End: 6 Start: 11-06-2010 End: 12-19-2010 doxycycline hyclate 100 mg oral capsule (20 sources) Tetracycline-class Drug Start: 09-10-2011 End: 09-17-2011 estradiol 0.01 mg vaginal insert (20 sources) Estrogen Start: 10-16-2014 End: 06-18-2015 metoprolol tartrate, short acting, (LOPRESSOR) 12.5 mg tab (2 sources) take 1 tablet by mouth every twelve hours metoprolol tartrate, short acting, (LOPRESSOR) 12.5 mg tab Take by mouth every 12 hours. 1 QD 0 Active Comment on above: Take by mouth every 12 hours. 1 QD Multivitamin & Mineral (2 sources) MULTIVITAMIN & MINERAL (Oral Liquid) Inactive MULTIVITAMIN & MINERAL (Oral Liquid) (20 sources) MULTIVITAMIN & MINERAL (Oral Liquid) Inactive multivitamin with minerals (7 sources) nitrofurantoin, macrocrystals 100 mg oral capsule (20 sources) Nitrofuran Antibacterial Start: 11-18-2018 End: 11-25-2018 oxyCODONE hydrochloride 5 mg oral capsule (3 sources) Opioid Agonist Start: 12-21-2024 End: 01-04-2025 take 1 capsule by mouth every six hours as needed for pain Oxycodone 5 mg capsule Discontinued 5 mg PO EVERY 6 HOURS as needed for pain 12 3 0 December 21, 2024 January 04, 2025 10:28am Anterior shoulder dislocation Anterior dislocation of unspecified humerus, initial encounter phentermine hydrochloride 37.5 mg oral tablet (15 sources) Sympathomimetic Amine Anorectic Start: 10-10-2021 End: 12-12-2021 Comment on above: thirtyBMI 28 with co morbid medical issues predniSONE 10 mg oral tablet (20 sources) Corticosteroid Start: 09-30-2011 End: 01-15-2012 Start: 09-30-2011 End: 01-15-2012 PREDNISONE, 10MG (Oral Table t) 3 (three) Tablet qd for 10 days then 2 pills for 3 days then 1 pill for 3 days for 0 days Refills: 0 Ordered: 15-Jan-2012 TIMMY Briceño LPN Start : 30-Sep-2011 End : 15-Jan-2012 Inactive Comments: with food in am Start: 09-10-2011 End: 01-15-2012 Start: 09-10-2011 End: 01-15-2012 take 2 tablets by mouth once daily, then take 1 tablet by mouth once daily, then take 0.5 tablet by mouth once daily PREDNISONE, 20MG (Oral Tablet) 1 Tablet uad for 0 days Refills: 0 Ordered: 15-Jan-2012 TIMMY Briceño LPN Start : 10-Sep-2011 End : 15-Jan-2012 Inactive Comments: 2 a d for 5 d, 1 a d for 5d, 1/2 a d for 5 d Comment on above: 2 a d for 5 d, 1 a d for 5d, 1/2 a d for 5 d with food in am Probiotic (7 sources) Probiotic Daily Oral Capsule (2 sources) take 1 capsule by mouth once daily Probiotic Daily Oral Capsule 1 qd Inactive Probiotic Daily Oral Capsule (16 sources) take 1 capsule by mouth once daily Probiotic Daily Oral Capsule 1 qd Inactive Probiotic Daily Oral Capsule (4 sources) take 1 capsule by mouth once daily Probiotic Daily Oral Capsule 1 qd Inactive progesterone 200 mg oral capsule (20 sources) Progesterone Start: 06-18-19 End: 05-05-19 17 rosuvastatin calcium 5 mg oral tablet (12 sources) HMG-CoA Reductase Inhibitor Start: 10-30-19 23 Rosuvastatin Active MG PO October 29, 2022 12:00am Start: 09-15-2022 End: 09-09-2023 Rosuvastatin 5 mg tablet Dis continued mg PO October 29, 2022 12:00am September 09, 2023 11:53am tamsulosin hydrochloride 0.4 mg oral capsule (20 sources) alpha-Adrenergic Kenrick Start: 11-06-2010 End: 12-19-2010 ubidecarenone 100 mg oral ca psule (7 sources) Start: 09-15-2022 Problems Active Problems Problem Classification Problem Date Documented Date Episodic/Chronic Abdominal pain (20 sources) Acute abdominal pain; Translations: [Abdominal pain, acute, left lower quadrant (Renamed from Acute abdominal pain in left lower quadrant)] Resolved: 9 02-03-2018 Episodic Comment on above: think she has divert iculitis talk to her about and cause. not think in reporductive. did UA. willtreat with atb cmp yesterday good add some labs. tell side effects of augmentin will call tomorrow. if worsen will call my cellphone. due for colonscopy. will do after better. if worsen CT scan Acute myocardial infarction (20 sources) Acute non-ST segment elevation myocardial infarction; Translations: [Non-STEMI (non-ST elevated myocardial infarction)] 03-17-2018 Chronic Comment on above: 03-08-18 [facility] had car diac cath no evidence of sig. CAD follow Dr. Thrasher think may be arrthymia not identified. could be vasospasm. has 30 day even monitor then if not pick anything up then implantable. is on low does jason talk about side effects with her and what to expect when exercise. at this point willnot exercise just walk to cleared by cardio. 03-08-18 [facility] had car diac cath no evidence of sig. CAD follow Dr. Thrasher think may be arrthymia not identified. could be vasospasm and cardiac syndrome X. has 30 day even monitor then if not pick anything up then implantable. is on low does bbkler talk about side effects with her and what to expect when exercise. at this point willnot exercise just walk to cleared by cardio. 03-08-18 [facility] had car diac cath no evidence of sig. CAD follow Dr. Thrasher think may be arrthymia not identified. could be vasospasm and cardiac syndrome X. has 30 day even monitor then if not pick anything up then implantable. is on low does jason talk about side effects with her and what to expect when exercise. at this point willnot exercise just walk to cleared by cardio. stable Allergic reactions (20 sources) Contact dermatitis due to poison cari; Translations: [Contact dermatitis due to poison cari] Onset: 2 Resolved: 6 06-18-2015 Episodic Anxiety disorders (20 sources) Anxiety; Translations: [Anxiety] 07-30-2020 Chronic Comment on above: situational Aortic; peripheral; and visceral artery aneurysms (20 sources) Abdominal aortic aneurysm; Translations: [AAA (abdominal aortic aneurysm)] Resolved: 9 05-24-2018 Chronic Comment on above: found 03-08-18 2.2 c m recommend see Dr. smith I will go ahead and recheck the aorta in 4months to assure no change then 6months then yearly if not change notthink need to see jenna yet found 03-08-18 2.2 c m recommend see Dr. smith aorta w stable good. the common iliacs minimal dilated 1.3-1.4 worry and refer if over 3.5 cm Benign neoplasm of uterus (20 sources) Uterine leiomyoma; Translations: [Uterine fibroid] Resolved: 1 05-25-2017 Episodic Comment on above: had hysteroscopy and D and C with Dr. Summers ultrasound 10-24 had fibroid benign no signs and symptoms now. no bleeding now Cardiac dysrhythmias (4 sources) Supraventricular tachycardia; Translations: [Supraventricular tachycardia] 01-04-2025 Chronic Cardiac dysrhythmias (20 sources) Palpitations; Translations: [Palpitations] Onset: 5 Episodic Conditions associated with dizziness or vertigo (20 sources) Vertigo; Translations: [Vertigo] 04-15-2021 Episodic Coronary atherosclerosis and other heart disease (3 sources) History of non-ST segment elevation myocardial infarction; Translations: [Old myocardial infarction] Onset: 5 01-04-2025 Chronic Diabetes mellitus without complication (20 sources) Impaired fasting glycaemia; Translations: [Abnormal glucose level] Resolved: 2 05-25-2017 Episodic Comment on above: doing weight eating less sugars and processed foods. lost weight. exercising with walk/jog 5 days a week. bike in summer right now starting maintenance. she has exercise instituted, weighing self daily, plan for loss. doing 80/20 Diseases of white blood cells (20 sources) Leukopenia; Translations: [Leukopenia, unspecified type] Resolved: 2 12-15-2019 Chronic Comment on above: absoolute cts good b ut recheck old Disorders of lipid metabolism (20 sources) Hypercholesterolemia; Translations: [Hypercholesteremia] 06-08-2018 Chronic Comment on above: wtih cardiac syndrom e X and NSTEMI and with ldl over 100 will add with ADMA elevation some and literature that l-arginine help with this wtih cardiac syndrom e X and NSTEMI and with ldl over 100 adma elevate in past on arginine in past. LDL went up with covid and not active elevated will add vi tamin B with niacin. wtih cardiac syndrom e X and NSTEMI and with ldl over 100 adma elevate in past on arginine in past. LDL went up with covid and not active and then diet went. she willslowly get back to diet wtih cardiac syndrom e X and NSTEMI and with ldl over 100 adma elevate in past on arginine in past. LDL went up with covid and not active and then diet went. she willslowly get back to dietcat - good normal Diverticulosis and diverticulitis (20 sources) Diverticulitis; Translations: [Diverticulitis of gastrointestinal tract] Resolved: 9 03-15-2018 Chronic Comment on above: thik really what is and atb help talk about diet increase fiber can add metamucil dialy at this point doing so well with diet not want to have her pull out seeds because eat raw tree niuts and berries all thatis good for her and overall this is contraversial. Fracture of upper limb (3 sources) Hill-Sachs lesion; Translations: [Other displaced fracture of upper end of right humerus, initial encounter for closed fracture] 12-21-2024 Episodic Genitourinary symptoms and ill-defined conditions (20 sources) Retention of urine; Translations: [Urinary retention] Resolved: 7 09-08-2016 Episodic Comment on above: postviod residual wa s better talk wtih kristopher yesterday and not think cause increase UTI. with menapause soon will hopefully shrink fibriods. Heart valve disorders (10 sources) Mitral valve regurgitation; Translations: [Nonrheumatic mitral (valve) insufficiency] Chronic Immunizations and screening for infectious disease (20 sources) Encounter for immunization; Translations: [Need for prophylactic vaccination and inoculation against influenza] Resolved: 2 05-25-2017 Episodic Joint disorders and dislocations; trauma-related (3 sources) Anterior dislocation of shoulder joint; Translations: [Anterior dislocation of unspecified humerus, initial encounter] 12-21-2024 Episodic Nausea and vomiting (20 sources) Nausea; Translations: [Nausea] Resolved: 2 04-15-2021 Episodic Nutritional deficiencies (20 sources) Vitamin D deficiency; Translations: [Vitamin D deficiency] 05-25-2017 Chronic Comment on above: takes in her multivi tamin Other circulatory disease (6 sources) Aorta palpable; Translations: [Other specified symptoms and signs involving the circulatory and respiratory systems] 03-25-2018 Episodic Other connective tissue disease (20 sources) Foot pain; Translations: [Foot pain] Resolved: 6 06-18-2015 Episodic Comment on above: bilateral. worse in right. done nsaids strecthes, ice and good shoe wear. ? plater fascitis. worse at end of day not in am. to podaitry to assure right dx. then tape inject possible orthotics. Other ear and sense organ disorders (20 sources) Impacted cerumen; Translations: [Cerumen impaction] Resolved: 6 06-18-2015 Episodic Other female genital disorders (20 sources) Dyspareunia; Translations: [Pain in female genitalia on intercourse] Chronic Other female genital disorders (20 sources) Pain in female genitalia on intercourse; Translations: [Dyspareunia in female] 05-25-2017 Chronic Comment on above: use coconut oil adn working well. use coconut oil adn working well. considering estrogen cream Other female genital disorders (20 sources) Abnormal vaginal bleeding; Translations: [Abnormal vaginal bleeding] Resolved: 6 06-18-2015 Chronic Comment on above: still bleedin but mo ther lat 61 yo. will chek us and labs seen kristopher in past Other female genital disorders (20 sources) Abnormal vaginal bleeding; Translations: [Abnormal vaginal bleeding] Resolved: 6 06-18-2015 Episodic Comment on above: still bleedin but mo ther lat 61 yo. will chek us and labs seen kristopher in past Other liver diseases (6 sources) Cardiac enzymes abnormal; Translations: [Abnormal levels of other serum enzymes] 03-25-2018 Episodic Other lower respiratory disease (20 sources) Cough; Translations: [Cough] Resolved: 6 06-18-2015 Episodic Other non-traumatic joint disorders (1 source) Pain in right shoulder; Translations: [Pain in right shoulder] Onset: 5 Episodic Other nutritional; endocrine; and metabolic disorders (20 sources) Body mass index 25-29 - overweight; Translations: [BMI 26.0-26.9,adult] Resolved: 8 05-25-2017 Chronic Comment on above: 26.57 doing well talk abou t 80/20 rule. weight self daily if gain 4 pounds restirct. exercisign walk/jog. biking. think about what exrcise do when weather bad. Other nutritional; endocrine; and metabolic disorders (20 sources) Obesity; Translations: [Obesity] 10-10-2021 Chronic Other nutritional; endocrine; and metabolic disorders (10 sources) Body mass index 30+ - obesity; Translations: [BMI 30.0-30.9,adult] 12-07-2022 Chronic Other nutritional; endocrine; and metabolic disorders (20 sources) Weight gain; Translations: [Weight gain] Resolved: 7 09-08-2016 Episodic Comment on above: think related to pro gesterone wll talk to kristopher about coming off this spring Other nutritional; endocrine; and metabolic disorders (20 sources) Body mass index 25-29 - overweight; Translations: [BMI 25.0-25.9,adult] Resolved: 2 04-19-2020 Episodic Comment on above: doing well talk abou t 80/20 rule. weight self daily if gain 4 pounds restirct. exercisign walk/jog. biking. think about what exrcise do when weather bad. 26.57 Other nutritional; endocrine; and metabolic disorders (20 sources) H/O: thyroid disorder; Translations: [H/O Sarah thyroiditis] 09-11-2020 Episodic Comment on above: had right total and left partial thyroidectomy still has some residual left thyroid tissue Other nutritional; endocrine; and metabolic disorders (20 sources) Overweight in adulthood with body mass index of 25 or more but less than 30; Translations: [BMI 25.0-25.9,adult] Resolved: 3 12-12-2021 Episodic Comment on above: doing well talk abou t 80/20 rule. weight self daily if gain 4 pounds restirct. exercisign walk/jog. biking. think about what exrcise do when weather bad. 26.57 Poisoning by other medications and drugs (20 sources) Adverse reaction to drug; Translations: [Medication reaction, initial encounter] Resolved: 0 07-29-2018 Episodic Prolapse of female genital organs (20 sources) Acquired vaginal enterocele; Translations: [Acquired vaginal enterocele] 05-25-2017 Chronic Residual codes; unclassified (20 sources) Postmenopausal state; Translations: [Postmenopausal (Renamed from Postmenopausal status)] 03-15-2018 Episodic Residual codes; unclassified (20 sources) Requires diphtheria, tetanus and pertussis vaccination; Translations: [Need for Tdap vaccination (Renamed from Need for tvtuiynayf-wfsyvfe-gemy ussis (Tdap) vaccine, adult/adolescent)] 09-20-2018 Episodic Residual codes; unclassified (8 sources) Needs influenza immunization; Translations: [Need for prophylactic vaccination and inoculation against influenza (Renamed from Need for immunization against influenza)] 01-12-2020 Episodic Residual codes; unclassified (20 sources) Current non-smoker ; Translations: [Current nonsmoker (Renamed from Current non-smoker)] 04-19-2020 Episodic Residual codes; unclassified (20 sources) Non-smoker; Translations: [Current nonsmoker (Renamed from Current non-smoker)] 03-13-2022 Episodic Spondylosis; intervertebral disc disorders; other back problems (20 sources) Low back pain; Translations: [Low back pain] Resolved: 2 02-14-2021 Episodic Comment on above: working with chiropa ctor no red flag signs and symptoms and if not katarzyna rin couple weeks will do xray and PT Syncope (6 sources) Syncope; Translations: [Syncope and collapse] 03-25-2018 Episodic Thyroid disorders (20 sources) Thyroid nodule; Translations: [Goiter] Resolved: 05-25-2017 Chronic Comment on above: us good numerous adrianna es. stillthere but us go od. increase overall size but no concnering nodules 2017 stillthere but us go od. increase overall size but no concnering nodules 2017. willrecheck US if really increasing at a realtively high trate ? Dr. Armenta evaluate. stillthere but us go od. increase overall size but no concnering nodules 2017. biopsty Dr. smith negative ? Dr. Armenta evaluate. stillthere but us go od. increase overall size but no concnering nodules 2017. biopsty Dr. smith negative ? Dr. Armenta evaluate it and had removed. Horattas removed Unclassified (20 sources) Viral screening status; Translations: [Laboratory test result abnormal] Onset: 5 Resolved: 05-25-2017 Episodic Comment on above: elevated TMAO. eatin g alot red meat now. elevated TMAO. eatin g alot red meat now. now with improvement in diet low aortic dilation foun d 03-08-18 2.[address] smith aorta w stable good. the common iliacs minimal dilated 1.3-1.4 worry and refer if over 3.5 cm recheck 1 year 4-20 aortic dilation foun d 11-27-18 2.[address] smith aorta w stable good. the common iliacs minimal dilated 1.3-1.4 worry and refer if over 3.5 cm recheck 2 years has been stable check 4-21 no signs and symptoms due in February 2018 Unclassified (20 sources) Body mass index (BMI) 23.0-23.9, adult; Translations: [Body mass index (BMI) 24.0-24.9, adult] Resolved: 0 05-25-2017 Episodic Comment on above: BMI=23.2 BMI=23.91 Unclassified (20 sources) Uterine fibroid Unclassified (20 sources) Acquired vaginal enterocele Unclassified (20 sources) Well woman exam (Renamed from Encounter for well woman exam) Unclassified (20 sources) Dyspareunia in female Unclassified (20 sources) Well woman exam Unclassified (20 sources) BMI 29.0-29.9,adult Unclassified (20 sources) Screening mammogram, encounter for Unclassified (20 sources) BMI 25.0-25.9,adult Unclassified (20 sources) Unclassified (20 sources) Prediabetes Unclassified (20 sources) BMI 26.0-26.9,adult Unclassified (20 sources) Current non-smoker ; Translations: [Current nonsmoker (Renamed from Current non-smoker)] 05-25-2017 Unclassified (20 sources) Abnormal fasting glucose Unclassified (20 sources) BMI 23.0-23.9, adult Unclassified (20 sources) Postmenopausal (Renamed from Postmenopausal status) Unclassified (20 sources) Encounter for hepatitis C virus screening test for high risk patient Unclassified (20 sources) BMI 24.0-24.9, adult Unclassified (20 sources) Abdominal pain, acute, left lower quadrant (Renamed from Acute abdominal pain in left lower quadrant) Unclassified (20 sources) AAA (abdominal aortic aneurysm) Unclassified (20 sources) Hypercholesteremia Unclassified (20 sources) Medication reaction, initial encounter Unclassified (20 sources) Abnormal US (ultrasound) of abdomen Unclassified (20 sources) Screening for HPV (human papillomavirus) (Renamed from Encounter for screening for human papillomavirus (HPV)) Unclassified (20 sources) Encounter for screening for cervical cancer (Renamed from Encounter for screening for malignant neoplasm of cervix) Unclassified (20 sources) Leukopenia, unspecified type Unclassified (20 sources) Stress reaction (Renamed from Acute reaction to stress) Unclassified (20 sources) H/O Sarah thyroiditis Unclassified (20 sources) BMI 27.0-27.9,adult Unclassified (10 sources) Elevated lipoprotein(a) Urinary tract infections (20 sources) Acute cystitis; Translations: [Urinary tract infectious disease] Resolved: 05-05-2016 Episodic Past or Other Problems Problem Classification Problem Date Documented Date Episodic/Chronic Administrative/social admission (20 sources) Medical examinations/reports status; Translations: [Well woman exam (Renamed from Encounter for well woman exam)] Resolved: 05-25-2017 05-25-2017 Episodic Comment on above: 05-25-17 [facility] hernadez Physical: mammogram 2-11-17, pap 05-06-16, colonoscopy Dr. Yuen 02/22 hx poly due 5, needs tdap updated, needs colonoscopy this february, PHQ-9=4 (minimal) , 6CIT=doing better with anxiety. time and working on [employer] and [employer] gifts. wrote for mammo had colonscopy fall good. did pap today 05-31 [facility] Well[facility] Physical: mammogram due end 06-28, pap 05-06-16, BD 06-[address] Yuen 02/22 hx poly due 5, needs shingrix, needs colonoscopy this august, PHQ-9=4 (minimal) , 6CIT=doing better with anxiety. time and working on [employer] and [employer] gifts. Residual codes; unclassified (16 sources) Increased body mass index; Translations: [BMI 29.0-29.9,adult] Resolved: 05-25-2017 02-08-2018 Episodic Residual codes; unclassified (19 sources) Requires varicella vaccination; Translations: [Need for shingles vaccine] Resolved: 03-14-2019 12-07-2018 Episodic Residual codes; unclassified (1 source) Vaccination required; Translations: [Need for shingles vaccine] Resolved: 03-14-2019 03-14-2019 Episodic Residual codes; unclassified (6 sources) History of thyroid lobectomy; Translations: [Acquired absence of other part of head and neck] Onset: 09-10-2020 09-11-2020 Episodic Comment on above: Total right thyroid lobectomy and partial left thyroid lobectomy 09/10/2020 Unclassified (20 sources) Pregnancies (); Translations: [Pregnancies ()] 05-25-2017 Comment on above: 4 Unclassified (20 sources) football knee 1974 Resolved: 09-05-2021 06-18-2015 Unclassified (8 sources) Screening status; Translations: [Encounter for screening colonoscopy] 05-25-2017 Comment on above: due in February 2018 Unclassified (20 sources) Deliveries (Parity); Translations: [Deliveries (Parity)] 05-25-2017 Comment on above: 4 vaginal, Term Unclassified (20 sources) WWV Resolved: 06-18-2015 06-18-2015 Comment on above: due for pap plan, ne eds mammo, lipids with insurance Unclassified (20 sources) Abnormal laboratory test Unclassified (20 sources) Weight gain Unclassified (20 sources) Acute cystitis without hematuria Unclassified (20 sources) Well Woman Exam (V72.31) (Pap,Mammo,Routine Female) (Renamed from Well Woman V72.31 (p,m)) Unclassified (20 sources) Need for Tdap vaccination (Renamed from Need for iypnazhsrl-sojuluu-jy rtussis (Tdap) vaccine, adult/adolescent) Unclassified (20 sources) Uterine fibroid (218.9) Unclassified (20 sources) Breast cancer screening Unclassified (20 sources) CERUMEN IMPACTION (380.4) Unclassified (20 sources) CONTACT DERMATITIS D/T POISON CARI, (692.6) Unclassified (20 sources) Vaginal enterocele, congenital or acquired (618.6) Unclassified (20 sources) Patient encounter status; Translations: [Screening mammogram, encounter for] Resolved: 12-12-2019 03-15-2018 Comment on above: due in February 2018- [facility] Wellness Physical: mammogram due end 06-28, pap 05-06-16, BD 3-[address] Yuen 02/22 hx poly due 5, needs shingrix, needs colonoscopy this may, PHQ-9=4 (minimal) , 6CIT=26/28doing better with anxiety. time and working on j[employer] and [employer] gifts. 12-15-19 [facility] Physical: mammogram 07-13-18 pap 05-06-16, BD 3-18 good, colonoscopy Dr. Yuen 02/22 hx polyp, 11-23-18, doing better with anxiety. time and working on jose [employer] and [employer] gifts, MOCA , [employer] Unclassified (20 sources) Encounter for screening colonoscopy Unclassified (20 sources) Body mass index 20-24 - normal; Translations: [BMI 23.0-23.9, adult] Resolved: 12-12-2019 09-20-2018 Comment on above: BMI=23.91 Unclassified (20 sources) Screening for colon cancer Unclassified (20 sources) Need for shingles vaccine Unclassified (20 sources) Unspecified Diagnosis Resolved: 12-12-2019 03-28-2019 Unclassified (20 sources) Immunity status testing Unclassified (20 sources) Deliveries (Parity); Translations: [Deliveries (Parity)] 04-19-2020 Comment on above: 4 vaginal, Term Unclassified (20 sources) Pregnancies (); Translations: [Pregnancies ()] 04-19-2020 Comment on above: 4 Unclassified (1 source) BMI 28.0-28.9,adult Urinary tract infections (20 sources) Urinary tract infections Results Test Name Value Interpretation Reference Range Facility Cardiology Visit Reporton Cardiology Visit Report [facility] [address] [place] [address]. [address] [place] [address] OFFICE VISIT Date of Service: 01/04/25 MR#: [id number] Acct: [id number] Name: BASILIA CAMPUZANO Rep #: [id number] : 1955 Provider: DANIEL valdes Age/Sex: 69/F Location: [facility] Status: Signed HPI HPI History of Present Illness Details: Basilia Campuzano is a 69-year-old female who presents here today for a cardiovascular follow-up. In February 2018, she had an abnormal troponin, this was felt to be related to her tachycardia as her heart catheterization was normal. Patient underwent a Holter monitor on 12/20/2024 ordered by her PCP. This demonstrated normal sinus rhythm/sinus bradycardia with rare PVCs/PACs. Her average heart rate was noted to be 58 bpm. She did have a 28 beat run of SVT at 190 bpm. From a cardiac standpoint, the patient is doing well. She does acknowledge palpitations-weekly. She describes this as a fast/racing sensation. She denies chest pain, pressure or heaviness. She denies SOB, Orthopnea, and PND. She does not have bleeding issues; no blood in urine, stool, or nosebleeds. She denies any decrease in energy level, myalgias, or claudication. She does not have edema, or sudden weight gain. She denies lightheadedness, dizziness, syncopal or near syncopal episodes, and headaches. Intake Vital Signs 12/21/24 16:21 01/04/25 07:25 Height 5 ft 4 in 5 ft 4 in Weight: 171 lb BMI 29.3 BP 113/70 Blood Pressure Location Lt brachial Position Sitting Respiration 18 Pulse 50 L Pulse Source Monitor Pulse Oximetry (%) 94 Intake Visit Reasons: PER PCP/ABN HOLTER Partner Integration Planner Required: No Is patient in pain?: No Allergies atorvastatin (From Lipitor) Adverse Reaction (Verified 01/04/25 11:05) Other Medications ???Medication ???Instructions ???Recorded ???Confirmed ???Type multivitamin 1 ea PO DAILY 03/08/18 01/04/25 Hi story cholecalciferol (vitamin D3) 25 25 mcg PO DAILY 07/04/21 01/04/25 History mcg (1,000 unit) capsule levothyroxine 75 mcg tablet 88 mcg PO DAILY 07/04/21 01/04/25 History metoprolol tartrate 25 mg tablet 25 mg PO DAILY 10/29/22 01/04/25 H istory magnesium 250 mg tablet 250 mg PO DAILY 10/26/23 01/04/25 History ondansetron 4 mg disintegrating 4 mg PO Q8H PRN PRN Nausea #10 tab s 12/21/24 01/04/25 Rx tablet ezetimibe 10 mg tablet (Zetia) 10 mg PO QDAY 01/04/25 01/04/25 Hi story Ejection fraction %: 65 Have you fallen in the past year?: Yes (tripped, dislocated shoulder x 2weeks ago) PFSH Medical History History of non-ST elevation myocardial infarction (NSTEMI) Wears glasses Anxiety Thyroid disease Back pain History of diverticulitis Non-smoker History of echocardiogram Cardiology follow-up encounter Hx of colonic polyp HTN (hypertension) History of Sarah thyroiditis History of left heart catheterization (LHC) ( 03/09/18) Multiple thyroid nodules Mixed hyperlipidemia Non-ST elevation (NSTEMI) myocardial infarction Palpable abdominal aorta Abnormal cardiac enzyme level Palpitations Prediabetes Epigastric pain Syncope Surgical History Hx of dilation and curettage Hx of colonoscopy History of lobectomy of thyroid ( 09/10/20) History of left knee surgery History of cholecystectomy Family History Father Heart problem Brother Diabetes Brother Diabetes Sister Diabetes Sister Paroxysmal supraventricular tachycardia Sister Tachycardia Mother Colon polyps Grandmother Stomach cancer Social History household members: spouse current occupational status: employed Smoking Status: Never smoker alcohol intake: never substance use type: does not use ROS Const Const: Negative for fatigue, weakness, headache(s) or frequent falls Eyes Eyes: Negative for blurry vision ENT ENT: Negative for headache(s), dizziness or Nosebleed/epistaxis Cardio Chest Pain: No Palpitations: Yes feels like its: fast Edema: None Muscle aches with walking: None Resp Respiratory: Negative for SOB with activity, SOB at rest or SOB orthopnea SOB lying down GI GI: Negative nausea, vomiting, heartburn, bright, red blood in stools or black,tarry stools : Negative for hematuria Neuro Neuro: Negative for dizziness, lightheadedness, near syncope, syncope, frequent falls, headache(s), weakness or blurry vision Endo Endo: Negative for fatigue Cardiology Exam Const Appearance: cooperative and no acute distress Nutritional Appearance: average body habitus and overweight Orientation: alert and oriented x3 Head Head: nor (more content not included)... Normal [facility] Emergency Department Summary on 12-21-2024 Emergency Department Summary [facility] Medical Records Department [address] [place] [address] Emergency Department Summary 12/21/24 MR#: [id number] Acct: [id number] Name: BASILIA CAMPUZANO Rep #: [id number] : 1955 69 From: Daniel Arechiga DO PCP: Dr. Nehal Vu MD Status:REG ER Location: ED HPI History of Present Illness Chief Complaint: Upper Extremity Injury Narrative Narrative: Chief complaint and HPI: 69-year-old female with past medical history of hypothyroidism, HTN presents for evaluation of right shoulder pain after an injury. Patient states she fell in her house in which she hit her right shoulder on the back of the sofa. Has obvious deformity to the right shoulder with pain. Denies any numbness or tingling. Denies any pain in the elbow or clavicle. Not on blood thinners. Review of systems: See HPI Medications: As listed on the chart Allergies: As listed on the chart PFSH: Per chart Vital signs: As listed on the chart. Reviewed. Physical exam: Gen: A O x3, NAD Head: Normocephalic, atraumatic Eyes: No sclera icterus, conjunctiva clear ENT: Moist mucous membranes Neck: Trachea midline, No JVD, full range of motion, nontender CV: Regular rate, clavicles and chest wall nontender to palpation Resp: Nonlabored respirations Musc: Obvious deformity to the right shoulder, right shoulder tender to palpation along with proximal. Mid/distal arm, elbow, forearm, wrist, hand, fingers nontender to palpation with full range of motion, no ecchymosis or lacerations, good capillary refill, radial pulse +2, sensation intact, compartments soft Skin: Warm, dry Neuro: Alert, oriented, grossly intact, sensation intact Psych: Cooperative, appropriate mood and affect [facility] Medical History Wears glasses Anxiety Thyroid disease Back pain History of diverticulitis Non-smoker History of echocardiogram Cardiology follow-up encounter Hx of colonic polyp HTN (hypertension) History of Sarah thyroiditis History of left heart catheterization (LHC) ( 03/09/18) Multiple thyroid nodules Mixed hyperlipidemia Non-ST elevation (NSTEMI) myocardial infarction Palpable abdominal aorta Abnormal cardiac enzyme level Palpitations Prediabetes Epigastric pain Syncope Home Medications ???Medication ???Instructions ???Recorded ???Last Taken ???Type multivitamin 1 ea PO DAILY 03/08/18 12/21/24 Hi story cholecalciferol (vitamin D3) 25 25 mcg PO DAILY 07/04/21 12/21/24 History mcg (1,000 unit) capsule levothyroxine 75 mcg tablet 88 mcg PO DAILY 07/04/21 12/21/24 History metoprolol tartrate 25 mg tablet 25 mg PO DAILY 10/29/22 12/21/24 H istory magnesium 250 mg tablet 250 mg PO DAILY 10/26/23 12/21/24 History ondansetron 4 mg disintegrating 4 mg PO Q8H PRN PRN Nausea #10 tab s 12/21/24 Unknown Rx tablet oxycodone 5 mg capsule 5 mg PO Q6H PRN pain 3 days #12 Unknown Rx caps Allergy/AdvReac Type Severity Reaction Status Date / Time atorvastatin (From Lipitor) AdvReac Other Verified 12/21/24 16:23 Family History Father Heart problem Brother Diabetes Brother Diabetes Sister Diabetes Sister Paroxysmal supraventricular tachycardia Sister Tachycardia Mother Colon polyps Grandmother Stomach cancer Surgical History Hx of dilation and curettage Hx of colonoscopy History of lobectomy of thyroid ( 09/10/20) History of left knee surgery History of cholecystectomy Social History household members: spouse current occupational status: employed Smoking Status: Never smoker alcohol intake: never substance use type: does not use EXAM Physical Exam Const Vital Signs: 12/21/24 16:21 Temperature 98.2 F Temperature Source Oral Pulse Rate 53 L Respiratory Rate 16 Blood Pressure 148/68 H Blood Pressure Mean 94 Pulse Ox 97 Oxygen Delivery Method Room Air MDM MDM MDM Narrative Medical decision making narrative: 69-year-old female with past medical history of hypothyroidism, HTN presents for evaluation of right shoulder pain after an injury. Patient states she fell in her house in which she hit her right shoulder on the back of the sofa. Has obvious deformity to the right shoulder with pain. Denies any numbness or tingling. Denies any pain in the elbow or clavicle. Not on blood thinners. Differential diagnosis includes but is not limited to right humerus fracture, right shoulder dislocation. [place] ordered for pain. X-ray of the shoulder ordered. X-ray of the shoulder was personally reviewed and interpreted by me, ED physician. Patient has an anterior should (more content not included)... Normal [facility] Shoulder min 2 Viewson 12-21 Shoulder min 2 Views [facility] Imaging Services [address] [place] [address] Shoulder min 2 Views MR#: [id number] Acct: [id number] Name: BASILIA CAMPUZANO Rep #: [id number] : 1955 F 69 From: Anshul Salinas MD PCP: Dr. Nehal Vu MD Status: REG ER Study: Shoulder min 2 Views Date of Exam: 12/21/24 Exam# [id number] Ordering Dr: Daniel Arechiga DO PROCEDURE: RIGHT SHOULDER MIN 2 VIEWS 12/21/2024 REASON FOR EXAM: STATUS POST REDUCTION TECHNIQUE: Procedure Code: RADSH Modality: DX Procedure: SHOULDER MIN 2 VIEWS Laterality: Right COMPARISON: Earlier same day 12/21/2024. FINDINGS: Status post successful closed reduction of the previous anterior glenohumeral dislocation, with restored anatomic alignment. Right AC joint is intact. There may be a subtle Hill-Sachs fracture deformity at the superolateral aspect of the humeral head, otherwise no acute fracture is seen. RAD/Shoulder min 2 Views IMPRESSION: Successful closed reduction of the previous anterior shoulder dislocation. Probable subtle Hill-Sachs impaction fracture of the superolateral humeral head. Reading Location: [facility] CC: Dr. Daniel Arechiga DO; Dr. Nehal Vu MD Nitrocellulose Maker: Signed Normal [facility] Shoulder min 2 Views [facility] Imaging Services [address] [place], [place] [address] Shoulder min 2 Views MR#: [id number] Acct: [id number] Name: BASILIA CAMPUZANO Rep #: [id number] : 1955 F 69 From: Anshul Salinas MD PCP: Dr. Nehal Vu MD Status: REG ER Study: Shoulder min 2 Views Date of Exam: 12/21/24 Exam# [id number] Ordering Dr: Daniel Arechiga DO PROCEDURE: RIGHT SHOULDER MIN 2 VIEWS 12/21/2024 REASON FOR EXAM: PAIN, TRAUMA TECHNIQUE: Procedure Code: RADSH Modality: DX Procedure: SHOULDER MIN 2 VIEWS Laterality: Right COMPARISON: None. FINDINGS: Anterior inferior dislocation of the right glenohumeral joint. No acute fracture appreciated on these images. Right AC joint is intact. Normal bone mineralization. Grossly unremarkable soft tissues. RAD/Shoulder min 2 Views IMPRESSION: Anterior right glenohumeral joint dislocation. No fracture appreciated. Reading Location: [facility] CC: Dr. Daniel Arechiga DO; Dr. Nehal Vu MD Nitrocellulose Maker: Signed Normal [facility] Bone density reportOrdered B y: Ash Dennis on 07-11-2024 Study report Skeletal system DXA [facility] Imaging Services [address] [place], [place] [address] Dexa Bone Density Study MR#: [id number] Acct: [id number] Name: BASILIA CAMPUZANO Rep #: [id number] : 1955 F 69 From: Estuardo Dennis MD PCP: Dr. Nehal Vu MD Status: REG C ROSCOE Study:Dexa Bone Density Study Date of Exam: 07/11/24 Exam# [id number] Ordering Dr: Nehal Vu MD PROCEDURE: DEXA BONE DENSITY STUDY 07/11/2024 REASON FOR EXAM: F, age 69 y/o . Postmenopausal. TECHNIQUE: DXA scan of the lumbar spine and left hip, using make and model. [facility] COMPARISON: Comparison is made with prior study dated January 21, 2022. FINDINGS: BMD and T-SCORES Lumbar spine: 0.855 g/cm2, T-Score -1.7 L1 through L4 Change from prior: Improvement of 1%. Left femoral neck: 0.773 g/cm2, T-Score -0.7 Femoral neck comparison data not recommended for monitoring change. Left total hip: 0.853 g/cm2, T-Score -0.7 Change from prior: Improvement by 0.8% Right femoral neck: 0.732 g/cm2, T-Score -1.1 Femoral neck comparison data not recommended for monitoring change. Right total hip: 0.872 g/cm2, T-Score -0.6 Change from prior: Loss of 4.1% The patient doesmeet the pharmacological treatment recommendations for prevention of osteoporosis BD/Dexa Bone Density Study IMPRESSION: OSTEOPENIA. Recommend follow-up as clinically warranted. Reading Location: [id number] CC: Dr. Nehal Vu MD ~ Nitrocellulose Maker: Signed [facility] Breast imaging reportOrdered By: Ash Dennis on 07-11-2024 Study report [facility] Imaging Services [address] [place] [address] SCRN MAMM (CAD)W/ADI BILAT MR#: [id number] Acct: [id number] Name: BASILIA CAMPUZANO Rep #: [id number] : 1955 F 69 From: Estuardo Dennis MD PCP: Dr. Nehal Vu MD Status: SANCHO MALHOTRA Study:SCRN MAMM (CAD)W/ADI BILAT Date of Exa m: 07/11/24 Exam# [id number] Ordering Dr: Nehal Vu MD EXAM: SCRN MAMM (CAD)W/ADI BILAT DATE: 07/11/2024 CLINICAL HISTORY: F, Age 69 y/o , SCRN MAMM (CAD)W/ADI BILAT TECHNIQUE: Bilateral screening digital breast tomosynthesis with 2D and 3D images. Computeraided detection. COMPARISON: Prior exam(s) dated prior study dated January 25, 2023.. FINDINGS: TISSUE DENSITY: The breast tissue is extremely dense which lowers the sensitivity of mammography. Bilateral Breast Mammographic Findings: No significant masses, calcifications or other abnormalities are identified. BI/SCRN MAMM (CAD)W/ADI BILAT IMPRESSION: Right Breast: BIRADS 1 NEGATIVE. Left Breast: BIRADS 1 NEGATIVE. OVERALL FINAL ASSESSMENT: BIRADS 1 NEGATIVE RECOMMENDATION: Routine annual follow-up in 1 Year A letter with findings and recommendations will be mailed to the patient. Reading Location: [id number] CC: Dr. Nehal Vu MD ~ Nitrocellulose Maker: Signed [facility] Dexa Bone Density Studyon Dexa Bone Density Study [facility] Imaging Services [address] [place], [place] [address] Dexa Bone Density Study MR#: [id number] Acct: [id number] Name: BASILIA CAMPUZANO Rep #: [id number] : 1955 F 69 From: Ash sotelo MD PCP: Dr. Nehal Vu MD Status: REG CLI Study: Dexa Bone Density Study Date of Exam: 07/11/24 Exam# [id number] Ordering Dr: Nehal Vu MD PROCEDURE: DEXA BONE DENSITY STUDY 07/11/2024 REASON FOR EXAM: F, age 69 y/o . Postmenopausal. TECHNIQUE: DXA scan of the lumbar spine and left hip, using make and model. [facility] COMPARISON: Comparison is made with prior study dated January 21, 2022. FINDINGS: BMD and T-SCORES Lumbar spine: 0.855 g/cm2, T-Score -1.7 L1 through L4 Change from prior: Improvement of 1%. Left femoral neck: 0.773 g/cm2, T-Score -0.7 Femoral neck comparison data not recommended for monitoring change. Left total hip: 0.853 g/cm2, T-Score -0.7 Change from prior: Improvement by 0.8% Right femoral neck: 0.732 g/cm2, T-Score -1.1 Femoral neck comparison data not recommended for monitoring change. Right total hip: 0.872 g/cm2, T-Score -0.6 Change from prior: Loss of 4.1% The patient doesmeet the pharmacological treatment recommendations for prevention of osteoporosis BD/Dexa Bone Density Study IMPRESSION: OSTEOPENIA. Recommend follow-up as clinically warranted. Reading Location: [id number] CC: Dr. Nehal Vu MD Nitrocellulose Maker: Signed Normal [facility] SCRN MAMM (CAD)W/ADI BILATo n 07-11-2024 SCRN MAMM (CAD)W/ADI BILAT [facility] Imaging Services [address] [place], [place] [address] SCRN MAMM (CAD)W/ADI BILAT MR#: [id number] Acct: [id number] Name: BASILIA CAMPUZANO Rep #: [id number] : 1955 F 69 From: Ash sotelo MD PCP: Dr. Nehal Vu MD Status: REG CLI Study: SCRN MAMM (CAD)W/ADI BILAT Date of Exam: 05/06 Exam# [id number] Ordering Dr: Nehal Vu MD EXAM: SCRN MAMM (CAD)W/ADI BILAT DATE: 07/11/2024 CLINICAL HISTORY: F, Age 69 y/o , SCRN MAMM (CAD)W/ADI BILAT TECHNIQUE: Bilateral screening digital breast tomosynthesis with 2D and 3D images. Computer aided detection. COMPARISON: Prior exam(s) dated prior study dated January 25, 2023.. FINDINGS: TISSUE DENSITY: The breast tissue is extremely dense which lowers the sensitivity of mammography. Bilateral Breast Mammographic Findings: No significant masses, calcifications or other abnormalities are identified. BI/SCRN MAMM (CAD)W/ADI BILAT IMPRESSION: Right Breast: BIRADS 1 NEGATIVE. Left Breast: BIRADS 1 NEGATIVE. OVERALL FINAL ASSESSMENT: BIRADS 1 NEGATIVE RECOMMENDATION: Routine annual follow-up in 1 Year A letter with findings and recommendations will be mailed to the patient. Reading Location: [id number] CC: Dr. Nehal Vu MD Nitrocellulose Maker: Signed Normal [facility] HEPATIC FUNCTION PANEL ([phone])Ordered By: Photography Professor on 12-01-2022 Albumin [Mass/Vol] 4.6 g/dL Normal 3.9-4.9 [facility]; [facility] Work Phone: ALP [Catalytic activity/Vol] 91 U/L Normal 44-121 [facility]; [facility] Work Phone: ALT [Catalytic activity/Vol] 17 U/L Normal 0-32 [facility] Internal Medicine; [facility] Work Phone: AST [Catalytic activity/Vol] 21 U/L Normal 0-40 [facility] Internal [facility]; [facility] Work Phone: Bilirubin [Mass/Vol] 0.5 mg/dL Normal 0.0-1.2 [facility] Internal Medicine; [facility] Work Phone: Bilirubin.direct [Mass/Vol] 0.14 mg/dL Normal 0.00-0.40 [facility] Internal Medicine; [facility] Work Phone: Protein [Mass/Vol] 6.9 g/dL Normal 6.0-8.5 [facility] Internal Medicine; [facility] Internal Medicine Work Phone: LIPID PANEL ([id number])Ordered B y: Photography Professor on 12-01-2022 Cholesterol [Mass/Vol] 225 mg/dL Abnormal 100-199 [facility] Internal [facility]; [facility] Work Phone: Cholesterol in HDL [Mass/Vol] 62 mg/dL Normal [facility] Internal Medicine; [facility] Internal Medicine Work Phone: Triglyceride [Mass/Vol] 79 mg/dL Normal 0-149 [facility]; [facility] Work Phone: LIPID PANEL ([id number]) 14 mg/dL Normal 5-40 [facility] Internal Medicine; [facility] Work Phone: LIPID PANEL ([id number]) 149 mg/dL Abnormal 0-99 [facility] Internal Medicine; [facility] Internal Medicine Work Phone: LIPID PANEL ([id number]) 2.4 {ratio} Normal 0.0-3.2 [facility] Internal Medicine; [facility] Internal Medicine Work Phone: CALCIFIDIOL ([phone]) VIT D 25 Ordered By: Photography Professor on 09-04-2022 25-hydroxyvitamin D [Mass/Vol] 38.9 ng/mL Normal 30.0-100.0 [facility] Internal Medicine; [facility] Medicine Work Phone: CBC with auto diff ([id number])Or dered By: Photography Professor on 05-26-2023 Basophils (Bld) [#/Vol] 0.0 10*3/uL Normal 0.0-0.2 [facility]; [facility] Work Phone: Basophils/100 WBC (Bld) 1 % Normal [facility]; [facility] Work Phone: Eosinophils (Bld) [#/Vol] 0.1 10*3/uL Normal 0.0-0.4 [facility]; [facility] Work Phone: Eosinophils/100 WBC (Bld) 2 % Normal [facility]; [facility] Work Phone: Erythrocyte distribution width (RBC) [Ratio] 12.6 % Normal 11.7-15.4 [facility]; [facility] Work Phone: Hematocrit (Bld) [Volume fraction] 40.7 % Normal 34.0-46.6 [facility]; [facility] Work Phone: Hemoglobin (Bld) [Mass/Vol] 13.4 g/dL Normal 11.1-15.9 [facility]; [facility] Work Phone: Immature granulocytes (Bld) [#/Vol] 0.0 10*3/uL Normal 0.0-0.1 [facility]; [facility] Work Phone: Immature granulocytes/100 WBC (Bld) 0 % Normal [facility]; [facility] Work Phone: Lymphocytes (Bld) [#/Vol] 1.2 10*3/uL Normal 0.7-3.1 [facility]; [facility] Work Phone: Lymphocytes/100 WBC (Bld) 33 % Normal [facility]; [facility] Work Phone: MCH (RBC) [Entitic mass] 27.6 pg Normal 26.6-33.0 [facility]; [facility] Work Phone: MCHC (RBC) [Mass/Vol] 32.9 g/dL Normal 31.5-35.7 [facility]; [facility] Work Phone: MCV (RBC) [Entitic vol] 84 fL Normal 79-97 [facility]; [facility] Work Phone: Monocytes (Bld) [#/Vol] 0.5 10*3/uL Normal 0.1-0.9 [facility]; [facility] Work Phone: Monocytes/100 WBC (Bld) 13 % Normal [facility]; [facility] Work Phone: Neutrophils (Bld) [#/Vol] 1.9 10*3/uL Normal 1.4-7.0 [facility]; [facility] Work Phone: Neutrophils/100 WBC (Bld) 51 % Normal [facility]; [facility] Work Phone: Platelets (Bld) [#/Vol] 200 10*3/uL Normal 150-450 [facility]; [facility] Work Phone: RBC (Bld) [#/Vol] 4.85 10*6/uL Normal 3.77-5.28 [facility]; [facility] Work Phone: WBC (Bld) [#/Vol] 3.7 10*3/uL Normal 3.4-10.8 [facility]; [facility] Work Phone: LIPID PANEL ([id number])Ordered B y: Photography Professor on 09-04-2022 Cholesterol [Mass/Vol] 209 mg/dL Abnormal 100-199 [facility]; [facility] Work Phone: Cholesterol in HDL [Mass/Vol] 63 mg/dL Normal [facility]; [facility] Work Phone: Triglyceride [Mass/Vol] 55 mg/dL Normal 0-149 [facility]; [facility] Work Phone: LIPID PANEL ([id number]) 10 mg/dL Normal 5-40 [facility] Work Phone: LIPID PANEL ([id number]) 136 mg/dL Abnormal 0-99 [facility]; [facility] Work Phone: LIPID PANEL ([id number]) 2.2 {ratio} Normal 0.0-3.2 [facility]; [facility] Work Phone: METABOLIC PANEL, COMPREHENSI VE ([id number])Ordered By: Photography Professor on 09-04-2022 Albumin [Mass/Vol] 4.4 g/dL Normal 3.8-4.8 [facility]; [facility] Work Phone: Albumin/Globulin [Mass ratio] 1.9 {ratio} Normal 1.2-2.2 [facility] Internal Medicine; [facility] Work Phone: ALP [Catalytic activity/Vol] 106 U/L Normal 44-121 [facility]; [facility] Work Phone: ALT [Catalytic activity/Vol] 21 U/L Normal 0-32 [facility] Internal Medicine; [facility] Work Phone: AST [Catalytic activity/Vol] 26 U/L Normal 0-40 [facility]; [facility] Work Phone: Bilirubin [Mass/Vol] 0.6 mg/dL Normal 0.0-1.2 [facility] Medicine; [facility] Work Phone: Calcium [Mass/Vol] 9.2 mg/dL Normal 8.7-10.3 [facility]; [facility] Work Phone: Chloride [Moles/Vol] 101 mmol/L Normal 96-106 [facility]; [facility] Work Phone: CO2 [Moles/Vol] 24 mmol/L Normal 20-29 [facility] Internal Medicine; [facility] Work Phone: Creatinine [Mass/Vol] 0.69 mg/dL Normal 0.57-1.00 [facility]; [facility] Work Phone: Globulin (S) [Mass/Vol] 2.3 g/dL Normal 1.5-4.5 [facility]; [facility] Work Phone: Glucose [Mass/Vol] 88 mg/dL Normal 70-99 [facility]; [facility] Work Phone: Potassium [Moles/Vol] 4.0 mmol/L Normal 3.5-5.2 [facility]; [facility] Work Phone: Protein [Mass/Vol] 6.7 g/dL Normal 6.0-8.5 [facility]; [facility] Work Phone: Sodium [Moles/Vol] 140 mmol/L Normal 134-144 [facility]; [facility] Work Phone: Urea nitrogen [Mass/Vol] 17 mg/dL Normal 8-27 [facility]; [facility] Work Phone: Urea nitrogen/Creatinine [Mass ratio] 25 mg/mg Normal 12-28 [facility]; [facility] Work Phone: METABOLIC PANEL, [facility] ([id number]) 96 mL/min/1.73 Normal [facility]; [facility] Work Phone: TSH ([id number])Ordered By: YouScane m Client Care Specialist on 09-04-2022 TSH Qn 2.270 {uIU/mL} Normal 0.450-4.500 [facility]; [facility] Work Phone: CBC, PLATELETS & AUT DIFF ([phone])Ordered By: Photography Professor on 02-27-2022 Basophils (Bld) [#/Vol] 0.0 10*3/uL Normal 0.0-0.2 [facility]; [facility] Work Phone: Comment on above: PATIENT NOT FASTINGP ERFORMED BY: WHITLEY [id number] [facility] [id number] Basophils/100 WBC (Bld) 1 % Normal [facility]; [facility] Work Phone: Comment on above: PATIENT NOT FASTINGP ERFORMED BY: WHITLEY Redicam70 [email or web address] [facility] [id number] Eosinophils (Bld) [#/Vol] 0.0 10*3/uL Normal 0.0-0.4 [facility]; [facility] Work Phone: Comment on above: PATIENT NOT FASTINGP ERFORMED BY: WHITLEY Qardioin [place] [id number] Eosinophils/100 WBC (Bld) 1 % Normal [facility]; [facility] Work Phone: Comment on above: PATIENT NOT FASTINGP ERFORMED BY: WHITLEY Cota6370 [facility] [id number] Erythrocyte distribution width (RBC) [Ratio] 12.9 % Normal 11.7-15.4 [facility]; [facility] Work Phone: Comment on above: PATIENT NOT FASTINGP ERFORMED BY: WHITLEY Muse [id number] [facility] [id number] Hematocrit (Bld) [Volume fraction] 37.8 % Normal 34.0-46.6 [facility]; [facility] Work Phone: Comment on above: PATIENT NOT FASTINGP ERFORMED BY: WHITLEY Muse [id number] [facility] [id number] Hemoglobin (Bld) [Mass/Vol] 12.4 g/dL Normal 11.1-15.9 [facility]; [facility] Work Phone: Comment on above: PATIENT NOT FASTINGP ERFORMED BY: WHITLEY Cota6370 [facility] [id number] Immature granulocytes (Bld) [#/Vol] 0.0 10*3/uL Normal 0.0-0.1 [facility]; [facility] Work Phone: Comment on above: PATIENT NOT FASTINGP ERFORMED BY: WHITLEY Parrishlin6370 [facility] [id number] Immature granulocytes/100 WBC (Bld) 0 % Normal [facility]; [facility] Work Phone: Comment on above: PATIENT NOT FASTINGP ERFORMED BY: WHITLEY Muse [id number] [facility] [id number] Lymphocytes (Bld) [#/Vol] 1.2 10*3/uL Normal 0.7-3.1 [facility]; [facility] Work Phone: Comment on above: PATIENT NOT FASTINGP ERFORMED BY: WHITLEY Cota6370 [facility] [place] [id number] Lymphocytes/100 WBC (Bld) 28 % Normal [facility]; [facility] Work Phone: Comment on above: PATIENT NOT FASTINGP ERFORMED BY: WHITLEY Cota6370 [address] [facility] [id number] MCH (RBC) [Entitic mass] 27.9 pg Normal 26.6-33.0 [facility]; [facility] Work Phone: Comment on above: PATIENT NOT FASTINGP ERFORMED BY: WHITLEY Labhelen [id number] [facility] [id number] MCHC (RBC) [Mass/Vol] 32.8 g/dL Normal 31.5-35.7 [facility]; [facility] Work Phone: Comment on above: PATIENT NOT FASTINGP ERFORMED BY: WHITLEY Cota6370 [facility] [id number] MCV (RBC) [Entitic vol] 85 fL Normal 79-97 [facility]; [facility] Work Phone: Comment on above: PATIENT NOT FASTINGP ERFORMED BY: WHITLEY Cota6370 [facility] [id number] Monocytes (Bld) [#/Vol] 0.3 10*3/uL Normal 0.1-0.9 [facility]; [facility] Work Phone: Comment on above: PATIENT NOT FASTINGP ERFORMED BY: WHITLEY Muse [id number] [facility] [place] [id number] Monocytes/100 WBC (Bld) 8 % Normal [facility]; [facility] Work Phone: Comment on above: PATIENT NOT FASTINGP ERFORMED BY: WHITLEY Parrishlin6370 [facility] [place] [id number] Neutrophils (Bld) [#/Vol] 2.5 10*3/uL Normal 1.4-7.0 [facility]; [facility] Work Phone: Comment on above: PATIENT NOT FASTINGP ERFORMED BY: WHITLEY [facility] [id number] [address] RoadDublin [place] [id number] Neutrophils/100 WBC (Bld) 62 % Normal [facility]; [facility] Work Phone: Comment on above: PATIENT NOT FASTINGP ERFORMED BY: WHITLEY Labcokarli [id number] [address] RoadDublin [place] [id number] Platelets (Bld) [#/Vol] 194 10*3/uL Normal 150-450 [facility]; [facility] Work Phone: Comment on above: PATIENT NOT FASTINGP ERFORMED BY: WHITLEY [facility] [id number] [address]Dublin [place] [id number] RBC (Bld) [#/Vol] 4.44 10*6/uL Normal 3.77-5.28 [facility]; [facility] Work Phone: Comment on above: PATIENT NOT FASTINGP ERFORMED BY: WHITLEY [facility] [id number] [address]Dublin [place] [id number] WBC (Bld) [#/Vol] 4.1 10*3/uL Normal 3.4-10.8 [facility]; [facility] Work Phone: Comment on above: PATIENT NOT FASTINGP ERFORMED BY: WHITLEY Parrishlin6370 [address] RoadDuin [place] [id number] MAGNESIUM ([id number])Ordered By: Photography Professor on 02-27-2022 Magnesium [Mass/Vol] 2.2 mg/dL Normal 1.6-2.3 [facility]; [facility] Work Phone: Comment on above: PATIENT NOT FASTINGP ERFORMED BY: WHITLEY [facility] [id number] [address]Dublin [place] [id number] METABOLIC PANEL, COMPREHENSI VE ([id number])Ordered By: Photography Professor on 02-27-2022 Albumin [Mass/Vol] 3.9 g/dL Normal 3.8-4.8 [facility]; [facility] Work Phone: Comment on above: PATIENT NOT FASTINGP ERFORMED BY: WHITLEY Micha [id number] [address]Dublin [place] [id number] Albumin/Globulin [Mass ratio] 1.7 {ratio} Normal 1.2-2.2 [facility]; [facility] Work Phone: Comment on above: PATIENT NOT FASTINGP ERFORMED BY: WHITLEY Micha [id number] [address]Dublin [place] [id number] ALP [Catalytic activity/Vol] 96 U/L Normal 44-121 [facility]; [facility] Work Phone: Comment on above: PATIENT NOT FASTINGP ERFORMED BY: WHITLEY [facility] Mzncuw2009 [address]Dublin [place] [id number] ALT [Catalytic activity/Vol] 12 U/L Normal 0-32 [facility]; [facility] Work Phone: Comment on above: PATIENT NOT FASTINGP ERFORMED BY: WHITLEY Robinhelen Ictlog6235 [address]Dublin [place] [id number] AST [Catalytic activity/Vol] 20 U/L Normal 0-40 [facility]; [facility] Work Phone: Comment on above: PATIENT NOT FASTINGP ERFORMED BY: WHITLEY Robinhelen [id number] [address] RoadDublin [place] [id number] Bilirubin [Mass/Vol] 0.3 mg/dL Normal 0.0-1.2 [facility] [facility]; [facility] Work Phone: Comment on above: PATIENT NOT FASTINGP ERFORMED BY: WHITLEY [facility] Sjpnpp1974 [address] RoadDublin [place] [id number] Calcium [Mass/Vol] 9.0 mg/dL Normal 8.7-10.3 [facility]; [facility] Work Phone: Comment on above: PATIENT NOT FASTINGP ERFORMED BY: WHITLEY Robinhelen Tssoat9393 [address] RoadDublin [place] [id number] Chloride [Moles/Vol] 104 mmol/L Normal 96-106 [facility]; [facility] Work Phone: Comment on above: PATIENT NOT FASTINGP ERFORMED BY: CB [facility] Sedkby1039 [address]Dublin [place] [id number] CO2 [Moles/Vol] 25 mmol/L Normal 20-29 [facility]; [facility] Work Phone: Comment on above: PATIENT NOT FASTINGP ERFORMED BY: CB [facility] Edvwva9607 [address] RoadDublin [place] [id number] Creatinine [Mass/Vol] 0.57 mg/dL Normal 0.57-1.00 [facility]; [facility] Work Phone: Comment on above: PATIENT NOT FASTINGP ERFORMED BY: CB [facility] Ivsddk6723 [address] RoadDublin [place] [id number] GFR/1.73 sq M.predicted among non-blacks MDRD (S/P/Bld) [Vol rate/Area] 101 mL/min/{1.73_m2} Normal Comprehensi Internal Medicine; [facility] Work Phone: Comment on above: PATIENT NOT FASTINGP ERFORMED BY: CB [facility] Ycjcto5417 [address] RoadDublin [place] [id number] Globulin (S) [Mass/Vol] 2.3 g/dL Normal 1.5-4.5 [facility]; [facility] Work Phone: Comment on above: PATIENT NOT FASTINGP ERFORMED BY: CB [facility] Kizsyp6800 [address]Dublin [place] [id number] Glucose [Mass/Vol] 92 mg/dL Normal 70-99 [facility]; [facility] Work Phone: Comment on above: PATIENT NOT FASTINGP ERFORMED BY: CB [facility] Uprvtv4404 [address]Dublin [place] [id number] Potassium [Moles/Vol] 4.1 mmol/L Normal 3.5-5.2 [facility]; [facility] Work Phone: Comment on above: PATIENT NOT FASTINGP ERFORMED BY: CB [facility] Gnvjpm0505 [address]Dublin [place] [id number] Protein [Mass/Vol] 6.2 g/dL Normal 6.0-8.5 [facility]; [facility] Work Phone: Comment on above: PATIENT NOT FASTINGP ERFORMED BY: WHITLEY [facility] Rxxtpr2713 [address] RoadDublin [place] [id number] Sodium [Moles/Vol] 141 mmol/L Normal 134-144 [facility]; [facility] Work Phone: Comment on above: PATIENT NOT FASTINGP ERFORMED BY: CB [facility] Kikcdq6744 [address] RoadDublin [place] [id number] Urea nitrogen [Mass/Vol] 19 mg/dL Normal 8-27 [facility]; [facility] Work Phone: Comment on above: PATIENT NOT FASTINGP ERFORMED BY: CB [facility] Hsjtvs5502 [address]Dublin [place] [id number] Urea nitrogen/Creatinine [Mass ratio] 33 mg/mg Abnormal 12-28 [facility]; [facility] Work Phone: Comment on above: PATIENT NOT FASTINGP ERFORMED BY: CB [facility] Bcflfz8667 [address] RoadDublin [place] [id number] METABOLIC PANEL, COMPREHENSIVE (98984) 101 mL/min/1.73 Normal [facility]; [facility] Work Phone: TSH (THYROID STIMULATING HOR ADALI) (44383)Ordered By: Photography Professor on 02-27-2022 TSH Qn 2.680 {uIU/mL} Normal 0.450-4.500 [facility] Internal Medicine; [facility] Work Phone: Comment on above: PATIENT NOT FASTINGP ERFORMED BY: CB [facility] Qoxoxb3207 [address] RoadPerson Memorial Hospitalin [place] [id number] HGB A1C (71344)Ordered By: S ystem Client Care Specialist on 09-05-2021 HbA1c (Bld) [Mass fraction] 5.8 % Abnormal 4.8-5.6 [facility]; [facility] Work Phone: Comment on above: . Prediabetes: 5.7 - 6.4 Diabetes: >6.4 Glycemic control for adults with diabetes: <7.0 PATIENT NOT FASTINGP ERFORMED BY: BeMyGuest [facility] Sbprhk9066 [address]Dublin [place] [id number] T3, FREE (TRIDOTHYRONINE) (8 6509)Ordered By: Photography Professor on 09-05-2021 Free T3 [Mass/Vol] 3.1 pg/mL Normal 2.0-4.4 [facility]; [facility] Work Phone: Comment on above: PATIENT NOT FASTINGP ERFORMED BY: CB [facility] Uljcce8971 [address]Dublin [place] [id number] T4, FREE (THYROXINE) (23894) Ordered By: Photography Professor on 09-05-2021 Free T4 [Mass/Vol] 1.54 ng/dL Normal 0.82-1.77 [facility]; [facility] Work Phone: Comment on above: PATIENT NOT FASTINGP ERFORMED BY: BeMyGuest [facility] Ibixtr1162 [address]Dublin [place] [id number] TSH (96717)Ordered By: YouScane m Client Care Specialist on 09-05-2021 TSH Qn 1.580 {uIU/mL} Normal 0.450-4.500 [facility] Internal Medicine; [facility] Work Phone: Comment on above: PATIENT NOT FASTINGP ERFORMED BY: BeMyGuest [facility] Cmzbbc2408 [address] RoadDublin [place] [id number] CALCIFIDIOL (46630) VIT D 25 Ordered By: Photography Professor on 08-29-2021 25-hydroxyvitamin D [Mass/Vol] 30.5 ng/mL Normal 30.0-100.0 [facility] Internal Medicine; [facility] Work Phone: Comment on above: Vitamin D deficiency has been defined by the [place] ofMedicine and an Endocrine Society practice guideline as alevel of serum 25-OH vitamin D less than 20 ng/mL (1,2).The Endocrine Society went on to further define vitamin Dinsufficiency as a level between 21 and 29 ng/mL (2).1. IOM ([place] of Medicine). 2010. Dietary reference intakes for calcium and D. [place]: The National Academies Press.2. De REILLY, Agustin PEREIRA, Andree CHAO, et al. Evaluation, treatment, and prevention of vitamin D deficiency: an Endocrine Society clinical practice guideline. JCEM. 2010; 96(7):1911-30. PATIENT WAS FASTINGP ERFORMED BY: CB [facility] Ipahkp4414 [address]Dublin [place] [id number] HEPATIC FUNCTION PANEL (8007 6)Ordered By: Photography Professor on 08-29-2021 Albumin [Mass/Vol] 4.3 g/dL Normal 3.8-4.8 [facility]; [facility] Work Phone: Comment on above: PATIENT WAS FASTINGP ERFORMED BY: CB [facility] Yvatwm2583 [address] RoadDublin [place] [id number] ALP [Catalytic activity/Vol] 98 U/L Normal 44-121 [facility]; [facility] Work Phone: Comment on above: PATIENT WAS FASTINGP ERFORMED BY: CB [facility] Dkfgin5281 [address] RoadDublin [place] [id number] ALT [Catalytic activity/Vol] 17 U/L Normal 0-32 [facility]; [facility] Work Phone: Comment on above: PATIENT WAS FASTINGP ERFORMED BY: CB [facility] Ufvfhe1813 [address] RoadDublin [place] [id number] AST [Catalytic activity/Vol] 24 U/L Normal 0-40 [facility]; [facility] Work Phone: Comment on above: PATIENT WAS FASTINGP ERFORMED BY: CB [facility] Pjjidp0188 [address] RoadDublin [place] [id number] Bilirubin [Mass/Vol] 0.3 mg/dL Normal 0.0-1.2 [facility] Internal Medicine; [facility] Work Phone: Comment on above: PATIENT WAS FASTINGP ERFORMED BY: CB [facility] Xthxet9499 [address] RoadDublin [place] [id number] Bilirubin.direct [Mass/Vol] mg/dL Normal 0.00-0.40 [facility]; [facility] Work Phone: Comment on above: PATIENT WAS FASTINGP ERFORMED BY: WHITLEY [facility] Tmrmmu9849 [address] RoadDublin [place] [id number] Protein [Mass/Vol] 6.7 g/dL Normal 6.0-8.5 [facility]; [facility] Work Phone: Comment on above: PATIENT WAS FASTINGP ERFORMED BY: CB [facility] Ywyfel4145 [address]Dublin [place] [id number] LIPID PANEL (84618)Ordered B y: Photography Professor on 08-29-2021 Cholesterol [Mass/Vol] 212 mg/dL Abnormal 100-199 [facility]; [facility] Work Phone: Comment on above: PATIENT WAS FASTINGP ERFORMED BY: CB [facility] Grpmjl9098 [address] RoadDublin [place] [id number]; fu 5-27 db Cholesterol in HDL [Mass/Vol] 61 mg/dL Normal [facility]; [facility] Work Phone: Comment on above: PATIENT WAS FASTINGP ERFORMED BY: CB [facility] Raitge9663 [address] RoadDublin [place] [id number]; fu 5-27 db Triglyceride [Mass/Vol] 57 mg/dL Normal 0-149 [facility]; [facility] Work Phone: Comment on above: PATIENT WAS FASTINGP ERFORMED BY: CB [facility] Ckqtne0877 [address] RoadDublin [place] [id number]; fu 5-27 db LIPID PANEL (57066) 10 mg/dL Normal 5-40 [facility]; [facility] Work Phone: Comment on above: PATIENT WAS FASTINGP ERFORMED BY: CB [facility] Pkxymd4638 [address] RoadDublin [place] [id number]; fu 5-27 db LIPID PANEL (12540) 141 mg/dL Abnormal 0-99 [facility]; [facility] Work Phone: Comment on above: PATIENT WAS FASTINGP ERFORMED BY: CB [facility] Sgipyy9591 [address]Dublin [place] [id number]; fu 5-27 db LIPID PANEL (80702) 2.3 {ratio} Normal 0.0-3.2 [facility]; [facility] Work Phone: Comment on above: LDL/HDL Ratio Men Wo men 1/2 Avg.Risk 1.0 1.5 Avg.Risk 3.6 3.2 2X Avg.Risk 6.2 5.0 3X Avg.Risk 8.0 6.1 PATIENT WAS FASTINGP ERFORMED BY: WHITLEY MECLUB6370 StartMeBets[facility] [id number]; fu 09-05 Novel Coronavirus (COVI D-19), MERCEDES (46332)Ordered By: Photography Professor on 04-15-20212018 Novel Coronavirus (COVID-19), MERCEDES (44414) Not detected Normal [facility]; [facility] Work Phone: Comment on above: This nucleic acid am plification test was developed and its performancecharacteristics determined by [employer]. Nucleic acidamplification tests include RT-PCR and TMA. This test has not beenFDA cleared or approved. This test has been authorized by FDA underan Emergency Use Authorization (EUA). This test is only authorizedfor the duration of time the declaration that circumstances existjustifying the authorization of the emergency use of in vitrodiagnostic tests for detection of SARS-CoV-2 virus and/or diagnosisof COVID-19 infection under section 564(b)(1) of the Act, 21 U.S.C.360bbb-3(b) (1), unless the authorization is terminated or revokedsooner.When diagnostic testing is negative, the possibility of a falsenegative result should be considered in the context of a patient'srecent exposures and the presence of clinical signs and symptomsconsistent with COVID-19. An individual without symptoms of COVID-19and who is not shedding SARS-CoV-2 virus would expect to have anegative (not detected) result in this assay. PATIENT NOT FASTINGP ERFORMED BY: WHITLEY [employer] Labslin6370 [facility]MeB[facility] [id number] INHOUSE COVID 19 (ONLY) RAPI D (49611)Ordered By: TIMMY Briceño on 04-15-2021 SARS-CoV-2 (COVID-19) RNA MERCEDES+probe Ql (Unsp spec) Negative Normal [facility]; [facility] Work Phone: INHOUSE COVID 19 (ONLY) RAPID (98991) Negative Normal Comprehensi ve Internal Medicine; [facility] Work Phone: BLD CNT, COMPL CBC W/AUTO DI FF WBC (90659)Ordered By: Photography Professor on 10-11-2020 Basophils (Bld) [#/Vol] 0.0 10*3/uL Normal 0.0-0.2 [facility]; [facility] Work Phone: Comment on above: PATIENT WAS FASTINGP ERFORMED BY: BeMyGuest LabStyleShare[address] [email or web address] Memorial Hospitalin [place] [id number] Basophils/100 WBC (Bld) 1 % Normal [facility]; [facility] Work Phone: Comment on above: PATIENT WAS FASTINGP ERFORMED BY: BeMyGuest LabStyleShare[address] [email or web address] Memorial Hospitalin [place] [id number] Eosinophils (Bld) [#/Vol] 0.1 10*3/uL Normal 0.0-0.4 [facility]; [facility] Work Phone: Comment on above: PATIENT WAS FASTINGP ERFORMED BY: Taodyne[address] [email or web address] Memorial Hospitalin [place] [id number] Eosinophils/100 WBC (Bld) 1 % Normal [facility]; [facility] Work Phone: Comment on above: PATIENT WAS FASTINGP ERFORMED BY: Taodyne[address] MadBid.comGranville Medical Center [id number] Erythrocyte distribution width (RBC) [Ratio] 13.2 % Normal 11.7-15.4 [facility]; [facility] Work Phone: Comment on above: PATIENT WAS FASTINGP ERFORMED BY: ClearMomentum70 [address] [email or web address] Medical Center [id number] Hematocrit (Bld) [Volume fraction] 39.3 % Normal 34.0-46.6 [facility]; [facility] Work Phone: Comment on above: PATIENT WAS FASTINGP ERFORMED BY: LabP[facility] Dwcmmw9502 [address] RoadDublin [place] [id number] Hemoglobin (Bld) [Mass/Vol] 12.6 g/dL Normal 11.1-15.9 [facility]; [facility] Work Phone: Comment on above: PATIENT WAS FASTINGP ERFORMED BY: LabCo Xssgzg4698 [address] RoadDublin [place] [id number] Immature granulocytes (Bld) [#/Vol] 0.0 10*3/uL Normal 0.0-0.1 [facility]; [facility] Work Phone: Comment on above: PATIENT WAS FASTINGP ERFORMED BY: [facility] Dlfxos7851 [address] RoadDublin [place] [id number] Immature granulocytes/100 WBC (Bld) 0 % Normal [facility]; [facility] Work Phone: Comment on above: PATIENT WAS FASTINGP ERFORMED BY: LabM[facility]6370 [address]Dublin [place] [id number] Lymphocytes (Bld) [#/Vol] 1.2 10*3/uL Normal 0.7-3.1 [facility]; [facility] Work Phone: Comment on above: PATIENT WAS FASTINGP ERFORMED BY: LabMcl[facility] Hospital6370 [address]Dublin [place] [id number] Lymphocytes/100 WBC (Bld) 31 % Normal [facility]; [facility] Work Phone: Comment on above: PATIENT WAS FASTINGP ERFORMED BY: LabP[facility] Fipycj[address] [facility] HospitalDublin [place] [id number] MCH (RBC) [Entitic mass] 27.9 pg Normal 26.6-33.0 [facility]; [facility] Work Phone: Comment on above: PATIENT WAS FASTINGP ERFORMED BY: LabP[facility] Rjbzjj3894 [address] RoadDublin [place] [id number] MCHC (RBC) [Mass/Vol] 32.1 g/dL Normal 31.5-35.7 [facility]; [facility] Work Phone: Comment on above: PATIENT WAS FASTINGP ERFORMED BY: WHITLEY LabCokarli Wzhnmi1111 [address] RoadDublin [place] [id number] MCV (RBC) [Entitic vol] 87 fL Normal 79-97 [facility]; [facility] Work Phone: Comment on above: PATIENT WAS FASTINGP ERFORMED BY: CB [facility] Guxfcn5824 [address] RoadDublin [place] [id number] Monocytes (Bld) [#/Vol] 0.5 10*3/uL Normal 0.1-0.9 [facility]; [facility] Work Phone: Comment on above: PATIENT WAS FASTINGP ERFORMED BY: WHITLEY LabErika ParrishHdiasn8341 [address] RoadDublin [place] [id number] Monocytes/100 WBC (Bld) 11 % Normal [facility]; [facility] Work Phone: Comment on above: PATIENT WAS FASTINGP ERFORMED BY: WHITLEY [facility] Uogebg8985 [address] RoadDublin [place] [id number] Neutrophils (Bld) [#/Vol] 2.3 10*3/uL Normal 1.4-7.0 [facility]; [facility] Work Phone: Comment on above: PATIENT WAS FASTINGP ERFORMED BY: WHITLEY [facility] Fbrmpn5741 [address] RoadDublin [place] [id number] Neutrophils/100 WBC (Bld) 56 % Normal [facility]; [facility] Work Phone: Comment on above: PATIENT WAS FASTINGP ERFORMED BY: CB [facility] Dststh8571 [address] RoadDublin [place] [id number] Platelets (Bld) [#/Vol] 178 10*3/uL Normal 150-450 [facility]; [facility] Work Phone: Comment on above: PATIENT WAS FASTINGP ERFORMED BY: CB [facility] Ypfmnh3523 [address] RoadDublin [place] [id number] RBC (Bld) [#/Vol] 4.52 10*6/uL Normal 3.77-5.28 Compr ehensive Internal Medicine; [facility] Work Phone: Comment on above: PATIENT WAS FASTINGP ERFORMED BY: WHITLEY Cota[address] Joseph HospitalShadblin [place] [id number] WBC (Bld) [#/Vol] 4.0 10*3/uL Normal 3.4-10.8 Compre hensive Internal Medicine; [facility] Work Phone: Comment on above: PATIENT WAS FASTINGP ERFORMED BY: WHITLEY [facility] Trnovh2228 [address] RoadDublin [place] [id number] CALCIFIDIOL (68110) VIT D 25 Ordered By: Photography Professor on 10-11-2020 25-hydroxyvitamin D [Mass/Vol] 29.3 ng/mL Abnormal 30.0-100.0 [facility]; [facility] Work Phone: Comment on above: Vitamin D deficiency has been defined by the [place] ofMedicine and an Endocrine Society practice guideline as alevel of serum 25-OH vitamin D less than 20 ng/mL (1,2).The Endocrine Society went on to further define vitamin Dinsufficiency as a level between 21 and 29 ng/mL (2).1. IOM ([place] of Medicine). 2010. Dietary reference intakes for calcium and D. [place]: The National Academies Press.2. De MF, Agustin NC, Andree CHAO, et al. Evaluation, treatment, and prevention of vitamin D deficiency: an Endocrine Society clinical practice guideline. JCEM. 2010; 96(7):1911-30. PATIENT WAS FASTINGP ERFORMED BY: WHITLEY Muse Qlezlg0474 [facility] Hospital Of SpringfieldDublin [place] [id number] LIPID PANEL (10528)Ordered B y: Photography Professor on 10-11-2020 Cholesterol [Mass/Vol] 206 mg/dL Abnormal 100-199 [facility]; [facility] Work Phone: Comment on above: PATIENT WAS FASTINGP ERFORMED BY: WHITLEY [facility] Zesipe2068 [address] RoadDublin [place] [id number] Cholesterol in HDL [Mass/Vol] 64 mg/dL Normal [facility]; [facility] Work Phone: Comment on above: PATIENT WAS FASTINGP ERFORMED BY: WHITLEY LabCokarli Occczk5505 [facility] [id number] Triglyceride [Mass/Vol] 55 mg/dL Normal 0-149 [facility]; [facility] Work Phone: Comment on above: PATIENT WAS FASTINGP ERFORMED BY: WHITLEY LabCokarli ParrishVahfmk8237 [facility] [id number] LIPID PANEL (26522) 10 mg/dL Normal 5-40 [facility]; [facility] Work Phone: Comment on above: PATIENT WAS FASTINGP ERFORMED BY: WHITLEY LabHelenkarli Bznxxn2116 [facility] [id number] LIPID PANEL (21721) 132 mg/dL Abnormal 0-99 [facility]; [facility] Work Phone: Comment on above: PATIENT WAS FASTINGP ERFORMED BY: WHITLEY LabHelenkarli Wesmao0926 [facility] [id number] LIPID PANEL (94683) 2.1 {ratio} Normal 0.0-3.2 Comp [facility]; [facility] Work Phone: Comment on above: LDL/HDL Ratio Men Wo men 1/2 Avg.Risk 1.0 1.5 Avg.Risk 3.6 3.2 2X Avg.Risk 6.2 5.0 3X Avg.Risk 8.0 6.1 PATIENT WAS FASTINGP ERFORMED BY: WHITLEY LabCokarli Kjhakz3534 [facility] [id number] METABOLIC PANEL, COMPREHENSI VE (94442)Ordered By: Photography Professor on 10-11-2020 Albumin [Mass/Vol] 4.1 g/dL Normal 3.8-4.8 [facility] Internal Medicine; [facility] Work Phone: Comment on above: PATIENT WAS FASTINGP ERFORMED BY: WHITLEY [facility] Plivgz8036 [facility] [id number] Albumin/Globulin [Mass ratio] 1.5 {ratio} Normal 1.2-2.2 [facility]; [facility] Work Phone: Comment on above: PATIENT WAS FASTINGP ERFORMED BY: WHITLEY [facility] Oqxffm2525 [address] RoadDublin [place] [id number] ALP [Catalytic activity/Vol] 102 U/L Normal 48-121 [facility]; [facility] Work Phone: Comment on above: PATIENT WAS FASTINGP ERFORMED BY: CB [facility] Rexfaw1649 [address] RoadDublin [place] [id number] ALT [Catalytic activity/Vol] 13 U/L Normal 0-32 [facility]; [facility] Work Phone: Comment on above: PATIENT WAS FASTINGP ERFORMED BY: CB [facility] Ldavjw6693 [address] RoadDublin [place] [id number] AST [Catalytic activity/Vol] 20 U/L Normal 0-40 [facility]; [facility] Work Phone: Comment on above: PATIENT WAS FASTINGP ERFORMED BY: [facility] Esjcif8172 [address]Dublin [place] [id number] Bilirubin [Mass/Vol] 0.5 mg/dL Normal 0.0-1.2 [facility]; [facility] Work Phone: Comment on above: PATIENT WAS FASTINGP ERFORMED BY: [facility] Qhhtbi8676 [address] RoadDublin [place] [id number] Calcium [Mass/Vol] 9.0 mg/dL Normal 8.7-10.3 [facility]; [facility] Work Phone: Comment on above: PATIENT WAS FASTINGP ERFORMED BY: CB [facility] Jnkqvv0563 [address] RoadDublin [place] [id number] Chloride [Moles/Vol] 104 mmol/L Normal 96-106 Comp [facility]ensive [facility]; [facility] Work Phone: Comment on above: PATIENT WAS FASTINGP ERFORMED BY: CB [facility] Dcxlpt3253 [address] RoadDublin [place] [id number] CO2 [Moles/Vol] 27 mmol/L Normal 20-29 [facility]hhe[facility]; [facility] Work Phone: Comment on above: PATIENT WAS FASTINGP ERFORMED BY: LabCo Qrjvyu7394 [facility] Hospitalblin [place] [id number] Creatinine [Mass/Vol] 0.66 mg/dL Normal 0.57-1.00 [facility]; [facility] Work Phone: Comment on above: PATIENT WAS FASTINGP ERFORMED BY: [facility] Vajdxw69[address] [facility] [id number] GFR/1.73 sq M.predicted among blacks CKD-EPI (S/P/Bld) [Vol rate/Area] 109 mL/min/1.73 Normal [facility]; [facility] Work Phone: Comment on above: [facility] in compliance with the current recommendations of the National Kidney Foundation. [facility] will update reporting as new guidelines are published from the NKF-ASN Task force. PATIENT WAS FASTINGP ERFORMED BY: [facility] Bzwpvb3388 [facility] [id number] GFR/1.73 sq M.predicted among non-blacks CKD-EPI (S/P/Bld) [Vol rate/Area] 94 mL/min/1.73 Normal [facility]; [facility] Work Phone: Comment on above: PATIENT WAS FASTINGP ERFORMED BY: [facility] Kubfkv7070 [facility] [id number] Globulin (S) [Mass/Vol] 2.7 g/dL Normal 1.5-4.5 [facility]; [facility] Work Phone: Comment on above: PATIENT WAS FASTINGP ERFORMED BY: [facility] Plnree[address] [facility]bl[facility] [place] [id number] Glucose [Mass/Vol] 98 mg/dL Normal 65-99 [facility] Internal Medicine; [facility] Work Phone: Comment on above: PATIENT WAS FASTINGP ERFORMED BY: [facility] Fgtlkt4492 [facility] [id number] Potassium [Moles/Vol] 3.8 mmol/L Normal 3.5-5.2 [facility]; [facility] Work Phone: Comment on above: PATIENT WAS FASTINGP ERFORMED BY: WHITLEY [facility] Zevttc1539 [address] RoadDublin [place] [id number] Protein [Mass/Vol] 6.8 g/dL Normal 6.0-8.5 [facility]; [facility] Work Phone: Comment on above: PATIENT WAS FASTINGP ERFORMED BY: [facility] Odlxob7771 [address] RoadDublin [place] [id number] Sodium [Moles/Vol] 142 mmol/L Normal 134-144 [facility]; [facility] Work Phone: Comment on above: PATIENT WAS FASTINGP ERFORMED BY: WHITLEY [facility] Kngepz2297 [address] RoadDublin [place] [id number] Urea nitrogen [Mass/Vol] 15 mg/dL Normal 8-27 [facility] Work Phone: Comment on above: PATIENT WAS FASTINGP ERFORMED BY: [facility] [id number] [address]Dublin [place] [id number] Urea nitrogen/Creatinine [Mass ratio] 23 mg/mg Normal 12-28 [facility]; [facility] Work Phone: Comment on above: PATIENT WAS FASTINGP ERFORMED BY: [facility] [id number] [address]Dublin [place] [id number] TSH (THYROID STIMULATING HOR ADALI) ([id number])Ordered By: Photography Professor on 10-11-2020 TSH Qn 5.740 {uIU/mL} Abnormal 0.450-4.500 Comprehen [facility]; [facility] Work Phone: Comment on above: PATIENT WAS FASTINGP ERFORMED BY: WHITLEY [facility] [id number] [address]Dublin [place] [id number] URINALYSIS ([id number])Ordered By : Photography Professor on 10-11-2020 Appearance (U) Clear Normal Comprehens [facility]; [facility] Work Phone: Comment on above: PATIENT WAS FASTINGP ERFORMED BY: WHITLEY [facility] Erzbln4[address]Dublin [place] [id number] Bilirubin Ql (U) Negative Normal Comprehe ns[facility]; [facility] Work Phone: Comment on above: PATIENT WAS FASTINGP ERFORMED BY: WHITLEY [facility] Rhmlis95[address]Dublin [place] [id number] Color (U) Yellow Normal [facility]; [facility] Work Phone: Comment on above: PATIENT WAS FASTINGP ERFORMED BY: WHITLEY [facility] [id number] [address]Dublin [place] [id number] Glucose Ql (U) Negative Normal Com[facility]; [facility] Work Phone: Comment on above: PATIENT WAS FASTINGP ERFORMED BY: WHITLEY [facility] [id number] [address]Dublin [place] [id number] Hemoglobin Ql (U) Negative Normal Compreh ens[facility]; [facility] Work Phone: Comment on above: PATIENT WAS FASTINGP ERFORMED BY: WHITLEY [facility] [id number]Dublin [place] [id number] Ketones Ql (U) Negative Normal Comprehens [facility]; [facility] Work Phone: Comment on above: PATIENT WAS FASTINGP ERFORMED BY: WHITLEY [facility] Ulrgzh8928 [address]Dublin [place] [id number] Leukocyte esterase Test strip Ql (U) Negative Normal [facility]; [facility] Work Phone: Comment on above: PATIENT WAS FASTINGP ERFORMED BY: WHITLEY [facility] Kafnkw7443 [address]Dublin [place] [id number] Microscopic observation LM Nom (Urine sed) MICNIP Normal [facility]; [facility] Work Phone: Comment on above: Microscopic not gerda cated and not performed. PATIENT WAS FASTINGP ERFORMED BY: WHITLEY [facility] [id number] [address]Dublin [place] [id number] Nitrite Ql (U) Negative Normal Comprehens [facility]; [facility] Work Phone: Comment on above: PATIENT WAS FASTINGP ERFORMED BY: [facility] Ltukeg6581 [address]Dublin [place] [id number] pH (U) 6.5 [pH] Normal 5.0-7.5 [facility]; [facility] Work Phone: Comment on above: PATIENT WAS FASTINGP ERFORMED BY: CB [facility] [id number] [facility] [place] [id number] Protein Ql (U) Negative Normal Comprehens [facility]; [facility] Work Phone: Comment on above: PATIENT WAS FASTINGP ERFORMED BY: CB [facility] Y[address]ysw[address] [facility] [id number] Specific gravity (U) [Rel density] 1.006 1 Normal 1.005-1.030 [facility]; [facility] Work Phone: Comment on above: PATIENT WAS FASTINGP ERFORMED BY: CB [facility] Jngbtv[address] [facility] [place] [id number] Urobilinogen (U) [Mass/Vol] 0.2 mg/dL Normal 0.2-1.0 [facility]; [facility] Work Phone: Comment on above: PATIENT WAS FASTINGP ERFORMED BY: [facility] [id number] [facility] [id number] [facility] 09-05-2020 [facility] Telephone ([id number]) ----- BASILIA CAMPUZANO ([id number]) 1955 F Date Time Provider Department 09/05/20 JENNIFER FRANCO [id number] During your visit today, we recorded the following information about you: Shawn Zaidi MA 09/05/2020 1:49 PM Signed ----- Message from Jennifer Franco MD sent at 09/05/2020 12:13 PM EDT ----- Results reviewed; please call patient with results - FINAL DIAGNOSIS A. Lymph node, central cervical, excision - Two benign lymph nodes. B. Thyroid, right lobe and partial left lobe, ?right lobectomy; partial left lobectomy - Chronic lymphocytic thyroiditis (Sarah's). - Multinodular hyperplasia. C. Thyroid, left lobe, partial left lobectomy - Chronic lymphocytic thyroiditis (Sarah's). - Multinodular hyperplasia. Shawn Zaidi MA 09/05/2020 1:50 PM Signed Pt notified of result. No question this time. Pt is aware of POV on 09/10/20. Ms. e Allergies As of Date: 09/05/2020 (No Known Allergies) Date Reviewed: 08/29/2020 Reviewed by: Carol Dumont RN - Fully Assessed Reason for Visit: Results [95] Cmt: Surgical pathology Prescriptions as of 09/05/2020 Sig: HYDROCODONE 5 MG-ACETAMINOPHE* 1-2 tablets every 6 hours as * ONDANSETRON HCL 4 MG TABLET Take 1 tablet by mouth once d* METOPROLOL TARTRATE 12.5 MG P* Take by mouth every 12 hours.* Problem List As Of Date 09/05/2020 Noted Resolved Arrhythmia [I49.9] Thyroid mass [E07.9] 08/29/2020 Encounter Status:Closed by SHAWN ZAIDI on 09/05/20 [facility] ANES POSTPROC EVALon 021 ANES POSTPROC EVAL HNO ID: [id number] Author: Edgardo Joyce DO Service: Anesthesiology Author Type: Physician Type: Anesthesia Postprocedure Evaluation Filed: 08/29/2020 2:17 PM Note Text: POST ANESTHESIA EVALUATION NOTE : 1955 Procedure Summary Date: 08/29/20 Room / Location: [place] [address] / [facility] Anesthesia Start: 821 Anesthesia Stop: 1045 Procedure: INTRAOPERATIVE ULTRASOUND, RIGHT THYROID LOBECTOMY, NERVE-INTEGRITY MONITORING. EXCISION CENTRAL CERVICAL LYMPH NODE. PARTIAL LEFT THYROID LOBECTOMY. AUTO IMPLANTATION PARATHYROID (Right Thyroid) Diagnosis: Thyroid mass Surgeons: Jennifer Franco MD Responsible Provider: Edgardo Joyce DO Anesthesia Type: general ASA Status: 2 Anesthesia Type: general Last vitals Vitals Value Taken Time BP 114/53 08/29/20 1225 Temp 36.3 ?C (97.3 ?F) 08/29/20 1045 Pulse 65 08/29/20 1228 Resp 13 08/29/20 1228 SpO2 97 % 08/29/20 1228 Vitals shown include unvalidated device data. Post Anesthesia Patient Status Anticipated Disposition: phase 2 then home. Neurological Status: aware and responsive. Pulmonary Status: breathing comfortably on room air Airway Control: returned to baseline unsupported. Cardiovascular Status: stable. Pain Management: clinically adequate - multimodal analgesia pain management approach Postoperative Hydration: acceptable. Intraoperative Events: no significant anesthesia events Post Operative Nausea/Vomiting Status: no significant post operative nausea or vomiting Anesthetic Observations: Recommendation: continue current plan of care. No complications documented. SIGNATURE: Edgardo Joyce DO PATIENT NAME: Basilia Campuzano DATE: August 29, 2020 TIME: 2:16 PM CSN: [id number] [facility] ANES PRE-OPon 08-29-2020 ANES PRE-OP HNO ID: [id number] Author: Edgardo Joyce DO Service: Anesthesiology Author Type: Physician Type: Anesthesia Preprocedure Evaluation Filed: 08/29/2020 7:36 AM Note Text: ANESTHESIOLOGY DAY OF SURGERY NOTE : 1955 Procedure(s) (LRB): INTRAOPERATIVE ULTRASOUND, RIGHT THYROID LOBECTOMY, NERVE-INTEGRITY MONITORING. (Right) Surgeon(s): Jennifer Franco MD Estimated body mass index is 25.75 kg/m? as calculated from the following: Height as of this encounter: 162.6 cm (5' 4). Weight as of this encounter: 68 kg (150 lb). Most recent hematocrit and potassium results: No results found for this basename: HCT,HEMATOCRIT,K,POTASSIU M Relevant Problems CARDIO (+) Arrhythmia I - PHYSICAL EVALUATION AIRWAY Patient intubated: No. Mallampati: I. TM distance: >3 FB. Neck ROM: full ROM without neurological symptoms. Mouth opening: adequate. DENTAL Dental findings: teeth intact. Additional exam findings: yes. CARDIOVASCULAR Normal cardiovascular observations. PULMONARY Normal pulmonary observations. II - ANESTHESIA PLAN ASA Score: 2 Anesthetic Plan: general Airway type: ETT NPO Status: adequate Administration of chronic beta kenrick medication planned. Monitoring plan: standard ASA. Postoperative analgesic plan: parenteral or oral opioids and multimodal analgesia. Anesthetic Risks, Benefits, Alternatives, Personnel Discussed. Consent obtained from: patient.Patient / Surrogate agrees to blood products: blood products not planned Significant changes in the patient condition since the History and Physical, not otherwise documented in primary service progress note: no. Vitals Value Taken Time BP 108/55 08/29/20 0709 Pulse 53 08/29/20 0709 Resp 20 08/29/20 0709 Temp 36.4 ?C (97.5 ?F) 08/29/20 0709 SpO2 98 % 08/29/20 0709 Facility-Administered Medications as of 08/29/2020 Medication Dose Route Frequency - lidocaine 10 mg/mL (1 %) 1-2 mg injection (XYLOCAINE) 0.1-0.2 mL INTRADERMAL PRN - lactated ringers iv infusion 5-30 mL/hr INTRAVENOUS CONTINUOUS - [COMPLETED] acetaminophen 975 mg tab(s) (TYLENOL) 975 mg ORAL Pre-Op Once - [COMPLETED] celecoxib 400 mg cap(s) (CeleBREX) 400 mg ORAL Pre-Op Once Outpatient Medications as of 08/29/2020 Medication Sig - metoprolol tartrate, short acting, (LOPRESSOR) 12.5 mg tab Take by mouth every 12 hours. 1 QD I have interviewed and examined the patient. I have reviewed the medical record and/or the pre-anesthesia evaluation, pertinent labs, and test results. This contains updated information obtained within 48 hours of Surgery/Procedure. SIGNATURE: Edgardo Joyce DO PATIENT NAME: Basilia Campuzano DATE: August 29, 2020 TIME: 7:35 AM CSN: [id number] [facility] BRIEF OP NOTon 08-29-2020 BRIEF OP NOT HNO ID: [id number] Author: Jennifer Franco MD Service: General Surgery Author Type: Physician Type: Brief Op Note Filed: 08/29/2020 10:35 AM Note Text: OPERATIVE/PROCEDURE REPORT LOG ID: [id number] SURGERY/PROCEDURE DATE: 08/29/2020 INCISION/PROCEDURE START TIME: 8:51 AM INCISION CLOSE/PROCEDURE END TIME: 10:28 AM SURGEON(S)/PROCEDURALIST( S) AND EYELET PUNCH OPERATOR(S): Surgeon(s) and Role: * Jennifer Franco MD - Primary * Ada Galvan MD - Resident - Assisting No Additional Staff SURGERY/PROCEDURE(S): R thyroid lobectomy, partial L thyroid lobectomy, excision central cervical lymph nodes, reimplantation parathyroid; intaop ultrasound ANESTHESIA: General SURGERY/PROCEDURE DETAILS: R thyroid lobectomy, partial L thyroid lobectomy, excision central cervical lymph nodes, reimplantation parathyroid; intaop ultrasound PRE-OP/PRE-PROCEDURE DIAGNOSIS: thyroid mass, POST-OP/POST-PROCEDURE DIAGNOSIS: Same as Preop ESTIMATED BLOOD LOSS: 40cc mls SPECIMENS: R thyroid, partial L lobe, lymph nodes IMPLANTABLE DEVICES: None DRAINS: None COMPLICATIONS: None PARTICIPATION IN SURGERY/PROCEDURE: I/primary surgeon/proceduralist performed the procedure with assistance. SIGNATURE: Jennifer Franco MD PATIENT NAME: Basilia Tamayoabel DATE: August 29, 2020 TIME: 10:32 AM [facility] NURSING PROGon 08-29-2020 NURSING PROG HNO ID: [id number] Author: Carol Dumont RN Service: ? Author Type: Registered Nurse Type: Nursing Progress Note Filed: 08/29/2020 1:40 PM Note Text: Dr Franco spoke with patient patient eating and drinking without difficulty some bruising at incision site Dr Franco aware [facility] NURSING PROG HNO ID: [id number] Author: Carol Dumont RN Service: ? Author Type: Registered Nurse Type: Nursing Progress Note Filed: 08/29/2020 1:11 PM Note Text: Dr Franco spoke with patient discharge instructions reviewed with patient and both verbalize uinderstanding [facility] OPERATIVE NOon 08-29-2020 OPERATIVE NO HNO ID: [id number] Author: Jennifer Franco MD Service: General Surgery Author Type: Physician Type: Operative Report Filed: 08/30/2020 2:42 PM Note Text: [facility] - Operative Report BASILIA CAMPUZANO : 1955 AGE: 65. SEX: F PATIENT TYPE: A [facility]: [facility] LOCATION: [facility] ATTENDING PHYSICIAN: JENNIFER FRANCO CSN NUMBER: [id number] DATE OF SURGERY/PROCEDURE: 08/29/2020 INCISION/PROCEDURE START TIME: 8:51 AM INCISION CLOSE/PROCEDURE END TIME: 10:28 AM PREOPERATIVE DIAGNOSIS: Thyroid mass. POSTOPERATIVE DIAGNOSIS: Thyroid mass with multinodular goiter and chronic thyroiditis. SURGEON: Jennifer Franco MD EYELET PUNCH OPERATOR: Dr. Ada Galvan. SURGERY/PROCEDURE: Right thyroid lobectomy; partial left thyroid lobectomy; intraoperative ultrasound; autotransplantation right parathyroid gland; excision, cervical lymph nodes. ANESTHESIA: General. HISTORY: This woman presents with bilateral thyroid nodularity with a dominant 4.5 cm lesion involving the right lobe. This was associated with interval enlargement over the past 5 years. Bilateral biopsies were consistent with a benign multinodular goiter. She is also noted to have another 1.6 cm right-sided lesion on ultrasound and 1.9 cm left-sided lesion. After consultation with her delivery crew member, she wished to proceed with right thyroid lobectomy for definitive management of the dominant 4.5 cm lesion. She understood the differential diagnosis including the risks, benefits, options, and potential complications and the extent of surgery would be dependent on operative findings. She wished to proceed with the plan for right thyroid lobectomy. Findings at surgery revealed diffuse enlargement of her thyroid gland with multiple nodules and encroachment on the trachea. Intraoperatively, multiple cervical lymph nodes were identified. These were removed for biopsy. The dominant lesion involving the right lobe was removed with right thyroid lobectomy. There was increased vascularity, fibrosis, and nodularity. Both lobes were markedly enlarged. Because of the asymmetrical nature of the persistent thyroid enlargement after removal of the dominant 4.5 cm lesion with right thyroid lobectomy, a partial left thyroid lobectomy was done removing the anterior half of the left lobe. She wished to try to preserve thyroid function, but based on the gross appearance of her thyroid gland, it was felt that she had diffuse disease and would be uncertain whether this would be possible, but per the preoperative discussion and informed consent, the posterior half of the left lobe of the thyroid was left in place removing the dominant nodularity. An equivocally vascularized right parathyroid gland was partially autotransplanted on the right sternocleidomastoid muscle. There were no apparent complications. Postoperatively, she remained stable. She was observed for period of time prior to being discharged home. There was no evidence of any complication or problems. DESCRIPTION OF PROCEDURE: After informed consent and usual preoperative huddle, she was transferred to the operating room. She underwent general endotracheal tube anesthesia with nerve integrity monitoring. Ultrasonography was done to help guide the extent of surgery to exclude pathologic lymphadenopathy and to aid in incision placement. She was prepped and draped in usual sterile fashion. After the usual time-out, a standard small mini-collar incision was made with superior and inferior subplatysmal flaps, dividing the strap muscles in the midline. Initially, only the right lobe was explored. This was enlarged. There was increased vascularity. There was increased fibrosis. There was increased nodularity. The thyroid gland was somewhat difficult to mobilize. Middle thyroid vessels were divided with Harmonic scalpel. Upper pole vessels were taken down also with the Harmonic scalpel and then the inferior pole vessels. Care was taken to identify and preserve both parathyroid glands. The parathyroid gland superiorly was noted to be intact and preserved on its vascular supply, but the indeterminate lower gland was somewhat more attenuated with regard to its blood supply. It was cut in half to see if there was blood flow to it and it was equivocal. This half from that was autotransplanted on the right sternocleidomastoid muscle after morcellation and marking it with 3 clips. The right lobectomy was accomplished with identification and preservation of the recurrent laryngeal nerve. This was noted to be visually intact and functional throughout the procedure and especially at the end. After confirmation of hemostasis, Surgicel was placed and the wound was packed. Attention was then directed to the asymmetrically enlarged residual left lobe. Several central cervical lymph nodes were identified during the procedure and these were (more content not included)... [facility] SURGICAL PATHOLOGYon 021 CASE REPORT [facility] Comment on above: Order Comment: Speci men Type: TISSUE SPECIMEN Result Comment: Surg [facility] Pathology Report Case: [id number] Authorizing Provider: Jennifer Franco, Collected: 08/29/2020 09:06 AM [facility]ing [facility] Received: 08/30/2020 12:02 PM Pathologist: Myrtle Walton MD Specimens: A) - LYMPH NODE, CENTRAL CERVICAL B) - THYROID LOBE RIGHT, AND PARTIAL LEFT THYROID LOBE C) - THYROID LOBE LEFT, ADDITIONAL LEFT THYROID LOBE Performed By: #### S ####[facility]ORYCLIA [id number] [place] [address] CLINICAL HISTORY THYROID MASS [facility] Comment on above: Order Comment: Speci men Type: TISSUE SPECIMEN Performed By: #### S ####[facility]ORYCLIA [id number] [place] [address] FINAL DIAGNOSIS Normal [facility] Comment on above: Order Comment: Speci men Type: TISSUE SPECIMEN Result Comment: A. L ymph node, central cervical, excision - Two benign lymph nodes. B. Thyroid, right lobe and partial left lobe, right lobectomy; partial left lobectomy - Chronic lymphocytic thyroiditis (Sarah's). - Multinodular hyperplasia. C. Thyroid, left lobe, partial left lobectomy - Chronic lymphocytic thyroiditis (Sarah's). - Multinodular hyperplasia. Performed By: #### S ####[facility]ORYCLIA [id number] [place] [address] FINAL PERFORMING LAB Normal [facility] Comment on above: Order Comment: Speci men Type: TISSUE SPECIMEN Result Comment: Diag nostic interpretation performed at [facility], [address] [place] [address] CLIA# [id number] [employer] Mechanic: Cb Horner M.D. Performed By: #### S ####[facility]ORATORYCLIA [id number] [place] [address] GROSS DESCRIPTION A. LYMPH NODE. Normal [facility] Comment on above: Order Comment: Speci men Type: TISSUE SPECIMEN Result Comment: A. R eceived in formalin labeled central cervical lymph node are two possible lymph nodes surrounded by scaly adherent soft tissue measuring 0.9 x 0.5 x 0.3 cm and 0.8 x 0.5 x 0.3 cm. Totally submitted as follows: A1-larger possible lymph node trisected; A2-smaller possible lymph node trisected. RSA B. THYROID LOBE RIGHT. Gross Description Template: Part B: ???thyroid lobe right and partial left thyroid lobe??? Specimen received: in formalin Specimen type: hemithyroidectomy Oriented: no Weight: 44.3 grams Size: 8.5 x 7 x 3 cm Right lobe: 7 x 4 x 3 cm Left lobe: 3.4 x 3 x 2.4 cm Isthmus: 1.7 x 0.3 x 0.3 cm Ink: Black External surface of the right lobe Blue External surface of the left lobe [place] External surface isthmus Sectioning: The right and left lobes are serially sectioned from superior to inferior. The isthmus is serially sectioned from right to left. Number of discrete nodules: 1 Nodule # 1 Location: right lobe and mid pole Size: 0.7 x 0.7 x 0.6 cm Description: solid, roman, well circumscribed Gross extrathyroidal extension: no Background thyroid parenchyma: roman parenchyma with multiple coalescing nodules Attached skeletal muscle: not identified Attached lymph nodes: not identified Attached parathyroid: not identified Gross photograph: no Cassette Summary: B1 - entire nodule from right lobe; B2-B3 - right lobe; B4-B6 - left lobe; B7 - isthmus. C. THYROID LOBE LEFT. Gross Description Template: Part C: ???additional left thyroid lobe??? Specimen type: completion thyroidectomy Oriented: no Weight: 11 grams Size: 4.8 x 2.8 x 1.3 cm Ink: Blue External surface of the left lobe [place] Possible resection site Sectioning: The left lobe serially sectioned from superior to inferior. 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 RSA/baljit Gross examination performed at [facility], [address] [place] [address] CLIA# [id number] Performed By: #### S ####[facility]ORYCLIA [id number] [place] [address] HISTORY PHYSICALon 1 HISTORY PHYSICAL HNO ID: [id number] Author: Fang Sims APRN.DAVID Service: ? Author Type: Nurse Practitioner Type: HANDP Filed: 08/26/2020 11:09 AM Note Text: HISTORY AND PHYSICAL EXAMINATION SERVICE DATE: 08/26/2020 SERVICE TIME: 11:08 AM PRIMARY CARE PHYSICIAN: Nehal Vu MD REASON FOR VISIT: Basilia Campuzano is a 65 year old female who is scheduled for Procedure(s): INTRAOPERATIVE ULTRASOUND, RIGHT THYROID LOBECTOMY, NERVE-INTEGRITY MONITORING. (Right) at the request of Dr. Jennifer Franco for routine HANDP. My final recommendation will be communicated back to the requesting physician by way of shared medical record or letter. Subjective The patient has the following: There is no problem list on file for this patient. PAST MEDICAL HISTORY Diagnosis Date - Arrhythmia - Multiple thyroid nodules PAST SURGICAL HISTORY Procedure Laterality Date - KNEE SURGERY HX Left meniscus repair - REMOVAL GALLBLADDER No family history on file. Social History Tobacco Use - Smoking status: Never Smoker - Smokeless tobacco: Never Used Substance Use Topics - Alcohol use: Never - Drug use: Not on file Prior to Admission medications as of 07/23/20 1741 Medication Sig Last Dose Taking metoprolol tartrate, short acting, (LOPRESSOR) 12.5 mg tab Take by mouth every 12 hours. 1 QD Taking Yes No medication comments found. ALLERGIES No Known Allergies CHIEF COMPLAINT: Thyroid nodule HPI: 65 y.o female presents today with c/o multiple right sided thyroid nodules. States they have been watching over the last 8 years and it has grown larger. She states there are two nodules on the right side, the largest measuring about 4.5 cm. There is one on the left side as well. US from outside facility in [facility] from 12/2019. Denies any trouble swallowing or breathing difficulties while laying flat. Denies any malfunctioning of the thyroid. Patient has met with surgeon and agrees to proceed with surgery. REVIEW OF SYSTEMS: General: No weight loss, malaise or fevers. Neurological: Negative for: headaches, peripheral neuropathy, seizures, TIA and strokes. Respiratory: No history of current cough or dyspnea, or pneumonia in the past 6 weeks. No history of respiratory/pulmonary symptoms or problems. Negative for: tobacco use. Cardiovascular: Positive for: arrhythmia (states one episode of heart racing, which is why she takes metoprolol) Negative for: angina, chest pain, hyperlipidemia, hypertension and murmur/valvular heart disease. GI: No history of GI symptoms or problems. No history of esophageal varices, recent ascites, or ETOH greater than 2 drinks per day. : No history of dysuria, frequency or incontinence, stones or chronic kidney disease. No difficulty urinating, nocturia > 1 time per night or hematuria. Endocrine: SEE HPI . No history of diabetes. Has not taken steroids within the past 30 days. No history of endocrinological symptoms or problems. Hematology: No history of bleeding or clotting disorder. Patient is not taking anti-coagulation or platelet medications. No history of hematological symptoms or problems. Psych: No history of psychiatric symptoms or problems. Musculoskeletal: Negative for joint pain or swelling, back pain or muscle pain. Skin: Negative for lesions, rash and itching. Objective PHYSICAL EXAM: General: alert and oriented and healthy appearance. Pertinent negatives noted - not distressed. Skin: normal color, no rash or lesions. HEENT: EOM intact, pupils equal round and pupils reactive to light. Throat; +palpable thyroid mass on right side. Cardiovascular: regular rate and rhythm, normal S1 and S2, no rub, murmurs, or gallop. Respiratory: normal breath sounds, no wheezes or crackles. No chest wall deformity or tenderness. Abdomen: bowel sounds present and soft. Extremities: no deformity, no edema or tenderness, no joint swelling or clubbing. Neurological: normal cognition and motor skills. Gait normal. No weakness or sensory deficit. PAIN ASSESSMENT: VITALS: BP 117/64 Pulse 54 Temp 97.9 Resp 18 Ht 5' 4 (1.63m) Wt 150 lb (68.0kg) SpO2 99% BMI 25.73 kg/(m2). Diagnostic tests reviewed for today's visit: Lab Value Units Date High Low HB No results within date range. HCT No results within date range. WBC No results within date range. PLT No results within date range. NA No results within date range. K No results within date range. GLUC No results within date range. BUN No results within date range. CREAT No results within date range. PTSEC No results within date range. INR No results within date range. APTT No results within date range. ALT No results within date range. AST No results within date range. TBILI No results within date range. TSH No results within date range. Lab Value Units Date High Low HCGQT No results within date range. UHCG No results within date range. HCG, BODY* (more content not included)... Normal [facility] PreOp/PreProc COVIDon 2020 SARS-CoV-2 (COVID-19) RNA MERCEDES+probe Ql (Unsp spec) UPPER RESPIRATORY TRACT SWAB Normal [facility] Comment on above: Performed By: #### P OCOVD #### [place] [address] SARS-CoV-2 (COVID-19) RNA MERCEDES+probe Ql (Unsp spec) Negative for COVID19 (SARS CoV2) by RT-PCR or equivalent method. Normal Negative for COVID19 (SARS CoV2) by RT-PCR or equivalent method. [facility] Comment on above: Result Comment: This test was developed and its performance characteristics determined by [facility] [place]. This test has been authorized by FDA under an Emergency Use Authorization (EUA). This test has been validated in accordance with the FDA's Guidance Document Policy for Diagnostics Testing in Laboratories Certified to Perform High Complexity Testing under CLIA prior to Emergency use Authorization for Coronavirus Disease 2019 during the Public Health Emergency issued on June 10, 2019. Test performed by [facility], [facility] [place], [address] [place] [id number]. Performed By: #### P OCOVD #### [place] [address] CNOVon 07-23-2020 CNOV Office Visit (AGGENS 6) ----- BASILIA CAMPUZANO ([id number]) 1955 F Date Time Provider Department 07/23/20 2:00 PM JENNIFER FRANCO6 During your visit today, we recorded the following information about you: Temperature Pulse Blood pressure Weight 98.4 degrees 53/minute 114/48 69.4 kg Height 1.626 m Jennifer Franco MD 07/23/2020 5:47 PM Signed Basilia Campuzano is a 65 year old White female who presents with complaints of New Patient (Multinodular Goiter - refer Dr. Armenta ) HPI: She was in for evaluation of her multinodular goiter. She has had progressive enlargement of a right sided lesion noted by her PCP. She does not have any significant compressive type symptoms. Bilateral FNA biopsies showed benign lesions. She has a 4.5 and a 1.6 cm lesions on the right side and a 1.9 cm left-sided lesion. Her overall thyroid gland is enlarged on ultrasonography. This has been enlarging over the past 5 years reportedly. 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 We discussed the role for lobectomy alone for the dominant 4.5 cm mass versus more extensive surgery. I reviewed the differential diagnosis including the risk benefits options and potential complications. Based on the benign finding of the left sided biopsy and that the lesion is only 1.9 cm her preference is to preserve it with the hope that it helps maintain function and decreases risks associate with a bilateral procedure. Furthermore she would be interested in doing this on an outpatient basis if possible. Based on the FNA biopsy being benign additional frozen section would probably not be beneficial. She would like however to have the right-sided lesion removed with right thyroid lobectomy for definitive diagnosis and management. TSH was normal at 1.64. She has no other risk factors for thyroid cancer. Her participated in the office visit virtually by phone. This note was partially generated using GameTube voice recognition system. No past medical history on file. History reviewed. No pertinent surgical history. Social History Tobacco Use - Smoking status: Never Smoker - Smokeless tobacco: Never Used Substance Use Topics - Alcohol use: Never - Drug use: Not on file No family history on file. ALLERGIES Not on File Current Outpatient Medications Medication Sig - metoprolol tartrate, short acting, (LOPRESSOR) 12.5 mg tab Take by mouth every 12 hours. 1 QD No current facility-administered medications for this visit. REVIEW OF SYSTEMS: Review of Systems Constitutional: Negative for chills, fever and weight loss. HENT: Negative. Negative for congestion, ear pain, hearing loss, sinus pain and sore throat. Eyes: Negative. Negative for blurred vision, double vision and pain. Respiratory: Negative for cough, shortness of breath and wheezing. Cardiovascular: Negative. Negative for chest pain, palpitations and leg swelling. Gastrointestinal: Negative for abdominal pain, constipation, diarrhea, heartburn, nausea and vomiting. Genitourinary: Negative. Negative for dysuria, frequency and urgency. Musculoskeletal: Negative. Negative for back pain, joint pain and neck pain. Skin: Negative for itching and rash. Neurological: Negative for dizziness, weakness and headaches. Endo/Heme/Allergies: Negative for environmental allergies. Does not bruise/bleed easily. Psychiatric/Behavioral: Negative for depression and memory loss. The patient is nervous/anxious. The patient does not have insomnia. PHYSICAL EXAM: BP 114/48 Pulse 53 Temp (Src) 98.4 (Temporal) Ht 5' 4 (1.63m) Wt 153 lb (69.4kg) BMI 26.25 kg/(m2). General Evaluation: On exam she has asymmetrical enlargement of her right thyroid lobe causing tracheal deviation slightly to the right. No lymphadenopathy. No symptoms are noted with extrinsic pressure. Head: Normocephalic Neck: No JVD Chest: Symmetrical Abdomen: No acute findings noted Genitalia: Deferred Breast: Deferred Back, including spine: No deformity Extremities: Normal ROM Constitutional: No acute distress Eyes: EOMI Ears, nose, mouth, and throat: Grossly WNL Respiratory/lungs: No acute distress or dyspnea Musculoskeletal: Ambulatory Skin: No jaundice Neurologic: CN grossly intact Psychiatric: Alert, Oriented Hematologic/lymphatic: No lymphedema Procedures: No notes on file Diagnosis: Thyroid mass (primary encounter diagnosis) Plan Assessment: She has bilateral thyroid nodularity with a dominant 4.5 cm lesion involving the right lobe which has been associated with interval enlargement over the past 5 years. Bilateral biopsies were consistent with a benign multinodular goiter. She also has a 1.9 cm left-sided lesion and another 1.6 cm right sided lesion reported on her ultrasonography. Plan: She would like to proceed wit (more content not included)... Normal [facility] Anti TPO Antibody (58199)Ord ered By: Photography Professor on 04-19-2020 TPO Ab Qn 240 {IU/mL} Abnormal 0-34 [facility]; [facility] Work Phone: Comment on above: A courtesy copy of t his report has been sent to [phone] WAS FASTINGPERFORMED BY: Uniphore Rrjmey9322 [facility] [id number] TPO Ab Qn 240 [IU]/mL Abnormal 0-34 [facility]; [facility] Work Phone: Comment on above: A courtesy copy of t his report has been sent to [phone] WAS FASTINGPERFORMED BY: Uniphore Adzult4159 [place] [facility] [id number] CALCIFIDIOL (42447) VIT D 25 Ordered By: Photography Professor on 04-19-2020 25-Hydroxyvitamin D2+25-Hydroxyvitamin D3 [Mass/Vol] 38.0 ng/mL Normal 30.0-100.0 [facility]; [facility] Work Phone: Comment on above: Vitamin D deficiency has been defined by the [place] ofMedicine and an Endocrine Society practice guideline as alevel of serum 25-OH vitamin D less than 20 ng/mL (1,2).The Endocrine Society went on to further define vitamin Dinsufficiency as a level between 21 and 29 ng/mL (2).1. IOM ([place] of Medicine). 2010. Dietary reference intakes for calcium and D. [place]: The National Academies Press.2. De MF, Agustin NC, Andree CHAO, et al. Evaluation, treatment, and prevention of vitamin D deficiency: an Endocrine Society clinical practice guideline. JCEM. 2010; 96(7):1911-30. A courtesy copy of t his report has been sent to [phone] WAS FASTINGPERFORMED BY: Uniphore Jsdndi5188 [facility] [id number] CBC with auto diff (27328)Or dered By: Photography Professor on 04-19-2020 Basophils (Bld) [#/Vol] 0.0 {x10E3/uL} Normal 0.0-0.2 [facility]; [facility] Work Phone: Comment on above: A courtesy copy of t his report has been sent to [phone] WAS FASTINGPERFORMED BY: WHITLEY Cota6370 [facility] [id number] Information: FAX DR ARMENTA [phone] Basophils (Bld) [#/Vol] 0.0 10*3/uL Normal 0.0-0.2 [facility]; [facility] Work Phone: Comment on above: A courtesy copy of t his report has been sent to [phone] WAS FASTINGPERFORMED BY: WHITLEY [address] [place] [address] [id number] Information: FAX DR ARMENTA [phone] Basophils/100 WBC (Bld) 1 % Normal [facility]; [facility] Work Phone: Comment on above: A courtesy copy of t his report has been sent to [phone] WAS FASTINGPERFORMED BY: WHITLEY Cota6370 [facility] [id number] Information: FAX DR ARMENTA [phone] Eosinophils (Bld) [#/Vol] 0.0 {x10E3/uL} Normal 0.0-0.4 [facility]; [facility] Work Phone: Comment on above: A courtesy copy of t his report has been sent to [phone] WAS FASTINGPERFORMED BY: WHITLEY Cota6370 [facility] [id number] Information: FAX DR ARMENTA [phone] Eosinophils (Bld) [#/Vol] 0.0 10*3/uL Normal 0.0-0.4 [facility]; [facility] Work Phone: Comment on above: A courtesy copy of t his report has been sent to [phone] WAS FASTINGPERFORMED BY: WHITLEY Cota6370 [facility] [id number] Information: FAX DR ARMENTA [phone] Eosinophils/100 WBC (Bld) 1 % Normal [facility]; [facility] Work Phone: Comment on above: A courtesy copy of t his report has been sent to [phone] WAS FASTINGPERFORMED BY: WHITLEY Cota6370 [facility] [id number] Information: FAX DR ARMENTA [phone] Erythrocyte distribution width (RBC) [Ratio] 12.6 % Normal 11.7-15.4 [facility]; [facility] Work Phone: Comment on above: A courtesy copy of t his report has been sent to [phone] WAS FASTINGPERFORMED BY: WHITLEY ParrishGazeHawkGranville Medical Center [id number] Information: FAX DR ARMENTA [phone] Hematocrit (Bld) [Volume fraction] 39.1 % Normal 34.0-46.6 [facility]; [facility] Work Phone: Comment on above: A courtesy copy of t his report has been sent to [phone] WAS FASTINGPERFORMED BY: WHITLEY Parrishlin6370 [facility]ium[facility] [id number] Information: FAX DR ARMENTA [phone] Hemoglobin (Bld) [Mass/Vol] 13.0 g/dL Normal 11.1-15.9 [facility]; [facility] Work Phone: Comment on above: A courtesy copy of t his report has been sent to [phone] WAS FASTINGPERFORMED BY: WHITLEY EdvivoErika Ajghun7742 [facility] [id number] Information: FAX DR ARMENTA [phone] Immature granulocytes (Bld) [#/Vol] 0.0 {x10E3/uL} Normal 0.0-0.1 [facility]; [facility] Work Phone: Comment on above: A courtesy copy of t his report has been sent to [phone] WAS FASTINGPERFORMED BY: WHITLEY EdvivoErika ParrishLpjsvl4281 [facility] [id number] Information: FAX DR ARMENTA [phone] Immature granulocytes (Bld) [#/Vol] 0.0 10*3/uL Normal 0.0-0.1 [facility]; [facility] Work Phone: Comment on above: A courtesy copy of t his report has been sent to [phone] WAS FASTINGPERFORMED BY: WHITLEY Parrishlin6370 [facility] [id number] Information: FAX DR ARMENTA [phone] Immature granulocytes/100 WBC (Bld) 0 % Normal [facility]; [facility] Work Phone: Comment on above: A courtesy copy of t his report has been sent to [phone] WAS FASTINGPERFORMED BY: WHITLEY Cota6370 [facility] [id number] Information: FAX DR ARMENTA [phone] Lymphocytes (Bld) [#/Vol] 1.1 {x10E3/uL} Normal 0.7-3.1 [facility]; [facility] Work Phone: Comment on above: A courtesy copy of t his report has been sent to [phone] WAS FASTINGPERFORMED BY: WHITLEY Parrishlin6370 [facility] [id number] Information: FAX DR ARMENTA [phone] Lymphocytes (Bld) [#/Vol] 1.1 10*3/uL Normal 0.7-3.1 [facility]; [facility] Work Phone: Comment on above: A courtesy copy of t his report has been sent to [phone] WAS FASTINGPERFORMED BY: WHITLEY Parrishlin6370 [facility] [id number] Information: FAX DR ARMENTA [phone] Lymphocytes/100 WBC (Bld) 29 % Normal [facility]; [facility] Work Phone: Comment on above: A courtesy copy of t his report has been sent to [phone] WAS FASTINGPERFORMED BY: WHITLEY Cota6370 [facility] [id number] Information: FAX DR ARMENTA [phone] MCH (RBC) [Entitic mass] 28.0 pg Normal 26.6-33.0 [facility]; [facility] Work Phone: Comment on above: A courtesy copy of t his report has been sent to [phone] WAS FASTINGPERFORMED BY: WHITLEY Cota6370 [facility] [id number] Information: FAX DR ARMENTA [phone] MCHC (RBC) [Mass/Vol] 33.2 g/dL Normal 31.5-35.7 [facility]; [facility] Work Phone: Comment on above: A courtesy copy of t his report has been sent to [phone] WAS FASTINGPERFORMED BY: WHITLEY Cota6370 [facility] [id number] Information: FAX DR ARMENTA [phone] MCV (RBC) [Entitic vol] 84 fL Normal 79-97 [facility]; [facility] Work Phone: Comment on above: A courtesy copy of t his report has been sent to [phone] WAS FASTINGPERFORMED BY: WHITLEY Cota6370 [facility] [id number] Information: FAX DR ARMENTA [phone] Monocytes (Bld) [#/Vol] 0.3 {x10E3/uL} Normal 0.1-0.9 [facility]; [facility] Work Phone: Comment on above: A courtesy copy of t his report has been sent to [phone] WAS FASTINGPERFORMED BY: WHITLEY Cota6370 [facility] [id number] Information: FAX DR ARMENTA [phone] Monocytes (Bld) [#/Vol] 0.3 10*3/uL Normal 0.1-0.9 [facility]; [facility] Work Phone: Comment on above: A courtesy copy of t his report has been sent to [phone] WAS FASTINGPERFORMED BY: WHITLEY Cota6370 [facility] [id number] Information: FAX DR ARMENTA [phone] Monocytes/100 WBC (Bld) 8 % Normal [facility]; [facility] Work Phone: Comment on above: A courtesy copy of t his report has been sent to [phone] WAS FASTINGPERFORMED BY: WHITLEY Cota6370 [facility] [id number] Information: FAX DR ARMENTA [phone] Neutrophils (Bld) [#/Vol] 2.3 {x10E3/uL} Normal 1.4-7.0 [facility]; [facility] Work Phone: Comment on above: A courtesy copy of t his report has been sent to [phone] WAS FASTINGPERFORMED BY: WHITLEY Cota6370 [facility] [id number] Information: FAX DR ARMENTA [phone] Neutrophils (Bld) [#/Vol] 2.3 10*3/uL Normal 1.4-7.0 [facility]; [facility] Work Phone: Comment on above: A courtesy copy of t his report has been sent to [phone] WAS FASTINGPERFORMED BY: WHITLEY Cota6370 [facility] [id number] Information: FAX DR ARMENTA [phone] Neutrophils/100 WBC (Bld) 61 % Normal [facility]; [facility] Work Phone: Comment on above: A courtesy copy of t his report has been sent to [phone] WAS FASTINGPERFORMED BY: WHITLEY Cota6370 [facility] [id number] Information: FAX DR ARMENTA [phone] Platelets (Bld) [#/Vol] 186 {x10E3/uL} Normal 150-450 [facility]; [facility] Work Phone: Comment on above: A courtesy copy of t his report has been sent to [phone] WAS FASTINGPERFORMED BY: WHITLEY Parrishlin6370 [facility] [id number] Information: FAX DR ARMENTA [phone] Platelets (Bld) [#/Vol] 186 10*3/uL Normal 150-450 [facility]; [facility] Work Phone: Comment on above: A courtesy copy of t his report has been sent to [phone] WAS FASTINGPERFORMED BY: WHITLEY Cota6370 [facility] [id number] Information: FAX DR ARMENTA [phone] RBC (Bld) [#/Vol] 4.64 {x10E6/uL} Normal 3.77-5.28 [facility]; [facility] Work Phone: Comment on above: A courtesy copy of t his report has been sent to [phone] WAS FASTINGPERFORMED BY: WHITLEY Cota6370 [facility] [id number] Information: FAX DR ARMENTA [phone] RBC (Bld) [#/Vol] 4.64 10*6/uL Normal 3.77-5.28 [facility]; [facility] Work Phone: Comment on above: A courtesy copy of t his report has been sent to [phone] WAS FASTINGPERFORMED BY: WHITLEY EdvivoErika Libuiv5108 [facility] [id number] Information: FAX DR ARMENTA [phone] WBC (Bld) [#/Vol] 3.8 {x10E3/uL} Normal 3.4-10.8 [facility]; [facility] Work Phone: Comment on above: A courtesy copy of t his report has been sent to [phone] WAS FASTINGPERFORMED BY: WHITLEY Uniphorekarli Siitgm2246 [facility] [id number] Information: FAX DR ARMENTA [phone] WBC (Bld) [#/Vol] 3.8 10*3/uL Normal 3.4-10.8 [facility]; [facility] Work Phone: Comment on above: A courtesy copy of t his report has been sent to [phone] WAS FASTINGPERFORMED BY: WHITLEY [employer]70 [facility] [id number] Information: FAX DR ARMENTA [phone] Lipid Panel (80948)Ordered B y: Photography Professor on 04-19-2020 Cholesterol [Mass/Vol] 208 mg/dL Abnormal 100-199 [facility]; [facility] Work Phone: Comment on above: A courtesy copy of t his report has been sent to [phone] WAS FASTINGPERFORMED BY: WHITLEY [employer]70 [facility] [id number] Cholesterol in HDL [Mass/Vol] 69 mg/dL Normal [facility]; [facility] Work Phone: Comment on above: A courtesy copy of t his report has been sent to [phone] WAS FASTINGPERFORMED BY: WHITLEY [employer]70 [facility] [id number] Cholesterol in LDL/Cholesterol in HDL [Mass ratio] 1.9 {ratio} Normal 0.0-3.2 [facility]; [facility] Work Phone: Comment on above: LDL/HDL Ratio Men Wo men 1/2 Avg.Risk 1.0 1.5 Avg.Risk 3.6 3.2 2X Avg.Risk 6.2 5.0 3X Avg.Risk 8.0 6.1 A courtesy copy of t his report has been sent to [phone] WAS FASTINGPERFORMED BY: Uniphore Kemwem0095 [facility] [id number] Triglyceride [Mass/Vol] 46 mg/dL Normal 0-149 [facility]; [facility] Work Phone: Comment on above: A courtesy copy of t his report has been sent to [phone] WAS FASTINGPERFORMED BY: WHITLEY Un[employer]ore Zufefm8796 [facility] [id number] Lipid Panel (64630) 131 mg/dL Abnormal 0-99 [facility]; [facility] Work Phone: Comment on above: A courtesy copy of t his report has been sent to [phone] WAS FASTINGPERFORMED BY: WHITLEY Uniphore Rjalyh5620 [facility] [id number] Lipid Panel (90084) 8 mg/dL Normal 5-40 [facility]; [facility] Work Phone: Comment on above: A courtesy copy of t his report has been sent to [phone] WAS FASTINGPERFORMED BY: WHITLEY Uniphore [employer] [facility] [id number] Lipid Panel (57284) 1.9 {ratio} Normal 0.0-3.2 [facility]; [facility] Work Phone: Comment on above: LDL/HDL Ratio Men Wo men 1/2 Avg.Risk 1.0 1.5 Avg.Risk 3.6 3.2 2X Avg.Risk 6.2 5.0 3X Avg.Risk 8.0 6.1 A courtesy copy of t his report has been sent to [phone] WAS FASTINGPERFORMED BY: Uniphore Jhvhne0721 [facility] [id number] T3, FREE (TRIDOTHYRONINE) (3 4987)Ordered By: Photography Professor on 04-19-2020 Free T3 [Mass/Vol] 3.3 pg/mL Normal 2.0-4.4 [facility]; [facility] Work Phone: Comment on above: A courtesy copy of t his report has been sent to [phone] WAS FASTINGPERFORMED BY: WHITLEY Uniphore Ethogh7107 [facility] [id number] T4, FREE (THYROXINE) (30868) Ordered By: Photography Professor on 04-19-2020 Free T4 [Mass/Vol] 1.22 ng/dL Normal 0.82-1.77 [facility]; [facility] Work Phone: Comment on above: A courtesy copy of t his report has been sent to [phone] WAS FASTINGPERFORMED BY: [employer]6370 [facility] [id number] TSH (85497)Ordered By: YouScane m Client Care Specialist on 04-19-2020 TSH Qn 1.560 {uIU/mL} Normal 0.450-4.500 Rustjuan [facility]on [facility]; [facility] Work Phone: Comment on above: A courtesy copy of t his report has been sent to [phone] WAS FASTINGPERFORMED BY: [employer]6370 [facility] [id number] HPV automatic (60513)Ordered By: Photography Professor on 12-15-2019 HPV 16+18+31+33+35+39+45 +51+52+56+58+59+68 DNA Probe+sig amp Ql (Cvx) Negative Normal [facility] Work Phone: Comment on above: This nucleic acid am plification high-risk HPV test detects thirteenhigh-risk types (16,18,31,33,35,39,45,51,52,56,58,59,68) withoutdifferentiation. Source.............C ervixNo. of containers..01 ThinPrep VialPERFORMED BY: WB Aloqa[address] [place], [place] [address]Mobile Realty AppsFulton County Medical Center [id number] BY: =G ADman Mediaton120 [facility] [id number] HPV 16+18+31+33+35+39+45 +51+52+56+58+59+68 DNA Probe+sig amp Ql (Cvx) Negative Normal [facility]; [facility] Work Phone: Comment on above: This nucleic acid am plification high-risk HPV test detects thirteenhigh-risk types (16,18,31,33,35,39,45,51,52,56,58,59,68) withoutdifferentiation. Source.............C ervixNo. of containers..01 ThinPrep VialPERFORMED BY: WB [facility] Anumbcntyn[address] PlazaInverted [place] [id number] BY: =G [facility] Oojjahfvzk[address] PlazaCharl[place] [id number] Thin Prep Pap (84926)Ordered By: Photography Professor on 12-15-2019 Microscopic observation Other stain Nom (Unsp spec) . Normal [facility] Work Phone: Comment on above: Source.............C ervixNo. of containers..01 ThinPrep VialPERFORMED BY: LabParatek PharmaceuticalsWzjdvywfig[address] MailsuiteadrienneInverted [place] [id number] BY: =G [facility] Emosiblwjq040 [address] PlazaInverted [place] [id number] Information: [id number] Pathology report final diagnosis Narrative [facility] Normal [facility] Work Phone: Comment on above: NEGATIVE FOR INTRAEP ITHELIAL LESION OR MALIGNANCY.Satisfactory for evaluation. Endocervical and/or squamous metaplasticcells (endocervical component) are present.Z11.51Z12.4Bradha Keith Education And Development Manager (ASCP) Source.............C ervixNo. of containers..01 ThinPrep VialPERFORMED BY: WB LabCoGuidekickAozfmphkrw[address] PlazaInverted [place] [id number] BY: =G [facility] Xypjlevwfe[address] PlazaCharleston [place] [id number] Information: [id number] Thin Prep Pap (37973) PAPSMR Normal [facility] Work Phone: Comment on above: The Pap smear is a s creening test designed to aid in the detection ofpremalignant and malignant conditions of the uterine cervix. It is not adiagnostic procedure and should not be used as the sole means of detectingcervical cancer. Both false-positive and false-negative reports do occur. .This liquid based ThinPrep(R) pap test was screened with theuse of an image guided system.The HPV DNA reflex criteria were not met with this specimen resulttherefore, no HPV testing was performed. . Source.............C ervixNo. of containers..01 ThinPrep VialPERFORMED BY: WB ADman Media[address] [id number] BY: =G ADman Media[address] [id number] Information: [id number] SARS-CoV-2 Antibody, IgGOrde red By: Photography Professor on 11-17-2019 SARS-CoV-2 Antibody, IgG METH3 Normal [facility] Internal Medicine Work Phone: Comment on above: See DiaSorin SARS-Co V-2 Ab, IgG Test(s) 958548-ZQAM- CoV-2 Antibody, IgG; 539778-ZthInlkm SARS-CoV-2 Ab, IgGhas not been FDA cleared or approved. This test hasbeen authorized by FDA under an Emergency Use Authorization(EUA). This test is only authorized for the duration of thedeclaration that circumstances exist justifying the authorizationof emergency use of in vitro diagnostics for detection and/ordiagnosis of COVID-19 under Section 564(b)(1) of the Act, 21U.S.C. 360bbb-3(b)(1), unless the authorization is terminated orrevoked sooner. This test has been authorized only for detectingthe presence of antibodies against SARS-CoV-2, not for any otherviruses or pathogens.PERFORMED BY: UniphoreAtlantiCare Regional Medical Center, Mainland CampusQcelyl6522 [address] [facility] [id number] CALCIFIDIOL (86174) VIT D 25 Ordered By: Photography Professor on 03-15-2019 25-Hydroxyvitamin D2+25-Hydroxyvitamin D3 [Mass/Vol] 26.6 ng/mL Abnormal 30.0-100.0 [facility] Work Phone: Comment on above: Vitamin D deficiency has been defined by the [place] ofMedicine and an Endocrine Society practice guideline as alevel of serum 25-OH vitamin D less than 20 ng/mL (1,2).The Endocrine Society went on to further define vitamin Dinsufficiency as a level between 21 and 29 ng/mL (2).1. IOM ([place] of Medicine). 2010. Dietary reference intakes for calcium and D. [place]: The National Academies Press.2. De MF, Agustin PEREIRA, Andree CHAO, et al. Evaluation, treatment, and prevention of vitamin D deficiency: an Endocrine Society clinical practice guideline. JCEM. 2010; 96(7):1911-30. Test(s) 370376-KPU-O ; 891324-JRC-G; 156676-AJD-F; 686797-Remkloxaocsbi; 202274-Whfgfuloaxw, Total; 774144-XMA-H (Total);643938-Tresy LDL-P; 950655-TMT Size; 635998-TL-EH Scorewas developed and its performance characteristics determinedby EnvironmentIQ. It has not been cleared or approved by the Foodand Drug Administration.PATIENT WAS FASTINGPERFORMED BY: EnvironmentIQ [address] [id number] BY: LabRevance Therapeutics Jihosf6917 [facility] [id number] CBC WITH MANUAL DIFF (05743) Ordered By: Photography Professor on 03-15-2019 Basophils (Bld) [#/Vol] 0.0 {x10E3/uL} Normal 0.0-0.2 [facility] Work Phone: Comment on above: Test(s) 696609-SKR-X ; 376594-FZC-X; 600837-MTE-Z; 154789-Asrsfnnyeqmic; 446263-Dnfgguatysn, Total; 260412-XXF-A (Total);801813-Bxavn LDL-P; 356048-TYE Size; 612154-XB-WU Scorewas developed and its performance characteristics determinedby EnvironmentIQ. It has not been cleared or approved by the Foodand Drug Administration.PATIENT WAS FASTINGPERFORMED BY: [address] [id number] BY: Uniphore Nwctng7018 [address] BrandWatch TechnologiesBetsy Johnson Regional Hospital [id number] Basophils (Bld) [#/Vol] 0.0 10*3/uL Normal 0.0-0.2 [facility]; [facility] Work Phone: Comment on above: Test(s) 500986-RIX-W ; 746950-OJJ-Q; 746184-QXK-O; 229861-Usjquaeypkkev; 718836-Urhrhjxphxl, Total; 226232-OSG-I (Total);879617-Yrybg LDL-P; 677819-NBU Size; 347883-CI-MM Scorewas developed and its performance characteristics determinedby EnvironmentIQ. It has not been cleared or approved by the Foodand Drug Administration.PATIENT WAS FASTINGPERFORMED BY: [address] [id number] BY: ClearMomentum[address] BrandWatch TechnologiesBetsy Johnson Regional Hospital [id number] Basophils/100 WBC (Bld) 1 % Normal [facility] Work Phone: Comment on above: Test(s) 547662-OFQ-H ; 412242-AGV-J; 628246-GKS-A; 277054-Roinuciveewia; 409968-Ucvofttwned, Total; 395621-OGA-Z (Total);666747-Shtpa LDL-P; 531930-WCE Size; 941023-OH-CV Scorewas developed and its performance characteristics determinedby EnvironmentIQ. It has not been cleared or approved by the Foodand Drug Administration.PATIENT WAS FASTINGPERFORMED BY: [address] [id number] BY: SeeVolutionAlbuquerque Indian Health CenterEnmlez9223 [facility] [id number] Eosinophils (Bld) [#/Vol] 0.1 {x10E3/uL} Normal 0.0-0.4 [facility] Work Phone: Comment on above: Test(s) 150740-IYH-N ; 452722-IUD-X; 343526-GMV-B; 863909-Djnbcthwxfqvc; 203331-Dwwumswibgc, Total; 685578-TUV-O (Total);151396-Molom LDL-P; 493487-DLN Size; 565620-RQ-BB Scorewas developed and its performance characteristics determinedby EnvironmentIQ. It has not been cleared or approved by the Foodand Drug Administration.PATIENT WAS FASTINGPERFORMED BY: [address] [id number] BY: ClearMomentum70 [address] BrandWatch TechnologiesBetsy Johnson Regional Hospital [id number] Eosinophils (Bld) [#/Vol] 0.1 10*3/uL Normal 0.0-0.4 [facility]; [facility] Work Phone: Comment on above: Test(s) 468906-FUI-O ; 524123-LNL-I; 908844-VIC-V; 911233-Pnbgpsoipkxgf; 864842-Khsixdsgyxo, Total; 477780-TYA-W (Total);180249-Bxhvu LDL-P; 425392-AOR Size; 089029-RC-LS Scorewas developed and its performance characteristics determinedby EnvironmentIQ. It has not been cleared or approved by the Foodand Drug Administration.PATIENT WAS FASTINGPERFORMED BY: [address] [id number] BY: Taodyne6370 DodsonMoberly Regional Medical Center [id number] Eosinophils/100 WBC (Bld) 2 % Normal [facility] Work Phone: Comment on above: Test(s) 802886-CIV-B ; 330713-APV-X; 930032-LGQ-I; 303260-Zuirarubdlgxi; 591165-Zpwyfkbrrvl, Total; 368648-BXG-E (Total);856683-Aofti LDL-P; 658507-QZX Size; 510951-ZM-EV Scorewas developed and its performance characteristics determinedby EnvironmentIQ. It has not been cleared or approved by the Foodand Drug Administration.PATIENT WAS FASTINGPERFORMED BY: [address] [id number] BY: SeeVolution Bivqyl3348 [facility] [id number] Erythrocyte distribution width (RBC) [Ratio] 13.8 % Normal 12.3-15.4 [facility] Work Phone: Comment on above: Test(s) 509047-GHN-T ; 441478-VFY-Q; 534164-WKK-Z; 821062-Fxsuadetijavb; 449695-Ekdpfetvsdl, Total; 466855-SAT-B (Total);397821-Zrrkx LDL-P; 214598-PWI Size; 406730-LZ-DC Scorewas developed and its performance characteristics determinedby EnvironmentIQ. It has not been cleared or approved by the Foodand Drug Administration.PATIENT WAS FASTINGPERFORMED BY: Amplion [employer] Communications[address] [id number] BY: Taodyne6370 [facility] [id number] Hematocrit (Bld) [Volume fraction] 40.1 % Normal 34.0-46.6 [facility] Work Phone: Comment on above: Test(s) 006803-YRK-T ; 644201-SPF-F; 802328-SIC-X; 680385-Ngxuqvvjznbwy; 159630-Nmlajydswpi, Total; 446000-LNX-Q (Total);178508-Abitb LDL-P; 788128-WRF Size; 353623-GZ-NU Scorewas developed and its performance characteristics determinedby EnvironmentIQ. It has not been cleared or approved by the Foodand Drug Administration.PATIENT WAS FASTINGPERFORMED BY: [address] [id number] BY: SeeVolutionAtlantiCare Regional Medical Center, Mainland CampusUtdqbb5204 [facility] [id number] Hemoglobin (Bld) [Mass/Vol] 13.1 g/dL Normal 11.1-15.9 [facility] Work Phone: Comment on above: Test(s) 404271-BXI-E ; 972536-JLV-O; 792432-CZF-Y; 397805-Aqaahqdfdghyj; 968036-Uvldjlezasi, Total; 769507-ZMB-Q (Total);415606-Gdmbp LDL-P; 300447-MYT Size; 611001-IW-TW Scorewas developed and its performance characteristics determinedby Uniphore. It has not been cleared or approved by the Foodand Drug Administration.PATIENT WAS FASTINGPERFORMED BY: Uniphore[address] [id number] BY: SeeVolutionAlbuquerque Indian Health CenterBaugmv5082 [facility] [id number] Immature granulocytes (Bld) [#/Vol] 0.0 {x10E3/uL} Normal 0.0-0.1 [facility] Work Phone: Comment on above: Test(s) 676492-NWJ-O ; 395041-UDY-F; 883298-VLF-I; 778562-Dtvvxzaumgfsh; 981347-Xenchvrmjtm, Total; 718734-YOK-K (Total);263010-Inwxv LDL-P; 301038-WLP Size; 842348-VH-MA Scorewas developed and its performance characteristics determinedby EnvironmentIQ. It has not been cleared or approved by the Foodand Drug Administration.PATIENT WAS FASTINGPERFORMED BY: Uniphore[address] [id number] BY: SeeVolutionAtlantiCare Regional Medical Center, Mainland CampusHruess6678 [facility] [id number] Immature granulocytes (Bld) [#/Vol] 0.0 10*3/uL Normal 0.0-0.1 [facility]; [facility] Work Phone: Comment on above: Test(s) 959900-BRW-P ; 923947-APJ-E; 350668-AME-E; 619702-Idxsmdvphnahr; 073791-Xzpnoecnehn, Total; 224058-SGH-H (Total);725826-Briok LDL-P; 239320-VIN Size; 759596-VA-DQ Scorewas developed and its performance characteristics determinedby EnvironmentIQ. It has not been cleared or approved by the Foodand Drug Administration.PATIENT WAS FASTINGPERFORMED BY: Uniphore[address] [id number] BY: UniphoreAlbuquerque Indian Health CenterLyxflj7434 [facility] [id number] Immature granulocytes/100 WBC (Bld) 0 % Normal [facility] Work Phone: Comment on above: Test(s) 411011-JCA-F ; 790979-IZJ-C; 305681-ICB-T; 503229-Gzyksuoisxicj; 676094-Kgqjqhflrpu, Total; 483883-QQM-C (Total);873452-Utebg LDL-P; 461170-QQM Size; 106419-MU-HO Scorewas developed and its performance characteristics determinedby EnvironmentIQ. It has not been cleared or approved by the Foodand Drug Administration.PATIENT WAS FASTINGPERFORMED BY: [address] [id number] BY: EnvironmentIQ Lhudsk4969 [facility] [id number] Lymphocytes (Bld) [#/Vol] 1.1 {x10E3/uL} Normal 0.7-3.1 [facility] Work Phone: Comment on above: Test(s) 708642-YMU-G ; 348440-YNT-U; 771197-OAK-O; 611063-Xwqsdbchqxkov; 921201-Ucewhttclis, Total; 708849-HOM-J (Total);566012-Wzmxp LDL-P; 611672-GNQ Size; 857504-EW-CU Scorewas developed and its performance characteristics determinedby EnvironmentIQ. It has not been cleared or approved by the Foodand Drug Administration.PATIENT WAS FASTINGPERFORMED BY: Uniphore[address] [id number] BY: UniphoreAtlantiCare Regional Medical Center, Mainland CampusHeelao5547 [facility] [id number] Lymphocytes (Bld) [#/Vol] 1.1 10*3/uL Normal 0.7-3.1 [facility]; [facility] Work Phone: Comment on above: Test(s) 272712-KWJ-R ; 308114-YWR-H; 859868-UVT-G; 330919-Gbtlkoubxpeyw; 648789-Mavkrowrsmx, Total; 220556-ROB-T (Total);062193-Ncubi LDL-P; 407336-TOE Size; 063447-IJ-SX Scorewas developed and its performance characteristics determinedby EnvironmentIQ. It has not been cleared or approved by the Foodand Drug Administration.PATIENT WAS FASTINGPERFORMED BY: [address] [id number] BY: Cloud4WiBetsy Johnson Regional Hospital [id number] Lymphocytes/100 WBC (Bld) 34 % Normal [facility] Work Phone: Comment on above: Test(s) 340014-PYM-I ; 695795-VOU-V; 037388-KGC-Y; 769384-Jksvbxljqzjfy; 197131-Kjntqeuqchq, Total; 164789-GSD-G (Total);572737-Xgnaa LDL-P; 153965-VRL Size; 212322-XP-GE Scorewas developed and its performance characteristics determinedby EnvironmentIQ. It has not been cleared or approved by the Foodand Drug Administration.PATIENT WAS FASTINGPERFORMED BY: [address] [id number] BY: Taodyne6370 [address] MadBid.comGranville Medical Center [id number] MCH (RBC) [Entitic mass] 27.8 pg Normal 26.6-33.0 [facility] Work Phone: Comment on above: Test(s) 951282-PXV-M ; 024792-SOU-X; 384512-TDL-M; 395208-Urpfiyflycbso; 920243-Rmtlftqhjnq, Total; 406428-YHP-K (Total);085795-Gufzq LDL-P; 043213-KOH Size; 122342-TD-QT Scorewas developed and its performance characteristics determinedby EnvironmentIQ. It has not been cleared or approved by the Foodand Drug Administration.PATIENT WAS FASTINGPERFORMED BY: [address] [id number] BY: Uniphore Vjpnzw5625 StartMeBetsy Johnson Regional Hospital [id number] MCHC (RBC) [Mass/Vol] 32.7 g/dL Normal 31.5-35.7 [facility] Work Phone: Comment on above: Test(s) 149145-OFT-Z ; 619740-GVB-P; 251741-JBQ-F; 309416-Rvamwespmxqer; 092127-Shugucthopt, Total; 462867-OSW-U (Total);581586-Kxxjd LDL-P; 097904-WUW Size; 301885-ZR-NC Scorewas developed and its performance characteristics determinedby EnvironmentIQ. It has not been cleared or approved by the Foodand Drug Administration.PATIENT WAS FASTINGPERFORMED BY: Amplion [employer] Communications[address] [id number] BY: ClearMomentum70 [address] BrandWatch TechnologiesBetsy Johnson Regional Hospital [id number] MCV (RBC) [Entitic vol] 85 fL Normal 79-97 [facility] Work Phone: Comment on above: Test(s) 976849-XMP-I ; 260973-RDI-G; 106135-ZXJ-S; 438189-Awsgjeowfgoaf; 596035-Mawcglidkbx, Total; 046645-TAW-X (Total);103144-Xuidj LDL-P; 252762-GEX Size; 623314-NJ-JG Scorewas developed and its performance characteristics determinedby EnvironmentIQ. It has not been cleared or approved by the Foodand Drug Administration.PATIENT WAS FASTINGPERFORMED BY: [address] [id number] BY: Denwa Communicationslin6370 [address] MadBid.comGranville Medical Center [id number] Monocytes (Bld) [#/Vol] 0.2 {x10E3/uL} Normal 0.1-0.9 [facility] Work Phone: Comment on above: Test(s) 448761-XTD-R ; 605016-BZH-C; 614249-ZBI-S; 993451-Bcxaijscxwjwr; 245822-Tktfpldoglo, Total; 794126-TPI-X (Total);481055-Nrwus LDL-P; 770404-RYR Size; 871674-AL-HC Scorewas developed and its performance characteristics determinedby EnvironmentIQ. It has not been cleared or approved by the Foodand Drug Administration.PATIENT WAS FASTINGPERFORMED BY: [address] [id number] BY: ClearMomentum70 [facility] [id number] Monocytes (Bld) [#/Vol] 0.2 10*3/uL Normal 0.1-0.9 [facility]; [facility] Work Phone: Comment on above: Test(s) 830054-FJC-M ; 678554-JJG-C; 964792-CFU-M; 772401-Vplwrsvtvpxli; 460773-Dvpithqixpg, Total; 090420-EBX-H (Total);957984-Zeiyh LDL-P; 393352-UWE Size; 124969-HP-UR Scorewas developed and its performance characteristics determinedby EnvironmentIQ. It has not been cleared or approved by the FoodActionX Drug Administration.PATIENT WAS FASTINGPERFORMED BY: [address] [id number] BY: Taodyne6370 [facility] [id number] Monocytes/100 WBC (Bld) 7 % Normal [facility] Work Phone: Comment on above: Test(s) 238353-MSV-J ; 182277-WJB-M; 912615-GQY-G; 440898-Sknxwcrvoxjcm; 550938-Jthwmcejfwi, Total; 774139-FUE-V (Total);609958-Ffxbk LDL-P; 565363-QGI Size; 284455-HH-ZJ Scorewas developed and its performance characteristics determinedby EnvironmentIQ. It has not been cleared or approved by the Foodand Drug Administration.PATIENT WAS FASTINGPERFORMED BY: Ampl[employer] Communications[address] [id number] BY: Uniphore Jpnvda6874 [address] MadBid.comGranville Medical Center [id number] Neutrophils (Bld) [#/Vol] 1.9 {x10E3/uL} Normal 1.4-7.0 [facility] Work Phone: Comment on above: Test(s) 466607-RFO-U ; 414126-XOM-I; 312790-VKJ-Z; 491139-Cfqvlhpeahnat; 727665-Jcxgxragzoy, Total; 882130-XKP-E (Total);292663-Vqxjr LDL-P; 510161-PSS Size; 434069-ZQ-ER Scorewas developed and its performance characteristics determinedby EnvironmentIQ. It has not been cleared or approved by the Foodand Drug Administration.PATIENT WAS FASTINGPERFORMED BY: [employer] Communications[address] [id number] BY: Taodyne6370 [facility] [id number] Neutrophils (Bld) [#/Vol] 1.9 10*3/uL Normal 1.4-7.0 [facility]; [facility] Work Phone: Comment on above: Test(s) 634437-QRO-G ; 773065-HPJ-T; 648664-ZQH-L; 588183-Jowklvyaysich; 308881-Xovvqpsbcho, Total; 121064-CSR-P (Total);761399-Jfykd LDL-P; 905419-DIV Size; 881950-GL-KM Scorewas developed and its performance characteristics determinedby EnvironmentIQ. It has not been cleared or approved by the Foodand Drug Administration.PATIENT WAS FASTINGPERFORMED BY: EnvironmentIQ [address] [id number] BY: SeeVolution Crqcbi8060 [facility] [id number] Neutrophils/100 WBC (Bld) 56 % Normal [facility] Work Phone: Comment on above: Test(s) 958572-NFG-Y ; 175556-MLU-C; 197550-CEP-I; 041847-Xgvcqgeksmzri; 173841-Vrxkyedrfbi, Total; 383641-MMI-O (Total);334843-Ucuyj LDL-P; 445623-GIE Size; 178927-QJ-VQ Scorewas developed and its performance characteristics determinedby EnvironmentIQ. It has not been cleared or approved by the Foodand Drug Administration.PATIENT WAS FASTINGPERFORMED BY: [address] [id number] BY: ClearMomentum70 iSentiumGranville Medical Center [id number] Platelets (Bld) [#/Vol] 190 {x10E3/uL} Normal 150-450 [facility] Work Phone: Comment on above: Test(s) 652195-SRY-Y ; 575025-NGX-B; 145036-MOY-K; 344220-Snkwyvwmwuhwi; 823612-Gfyreqygfwk, Total; 516816-HRY-F (Total);923863-Hliox LDL-P; 067021-OUG Size; 340350-DP-CW Scorewas developed and its performance characteristics determinedby EnvironmentIQ. It has not been cleared or approved by the Foodand Drug Administration.PATIENT WAS FASTINGPERFORMED BY: EnvironmentIQ [address] [id number] BY: Taodyne6370 StartMeBetsy Johnson Regional Hospital [id number] Platelets (Bld) [#/Vol] 190 10*3/uL Normal 150-450 [facility]; [facility] Work Phone: Comment on above: Test(s) 347174-DEG-T ; 008243-VKC-N; 248587-DKH-G; 054497-Fzteezlumkzwf; 248226-Uszvuyjrgua, Total; 230020-LCF-V (Total);170458-Mzrqp LDL-P; 514782-DUJ Size; 806925-LG-QQ Scorewas developed and its performance characteristics determinedby EnvironmentIQ. It has not been cleared or approved by the Foodand Drug Administration.PATIENT WAS FASTINGPERFORMED BY: Nanophotonica [facility] H[address]hg[address] [id number] BY: BeMyGuest LabResponsible City Fnqjoa1548 [facility] [id number] RBC (Bld) [#/Vol] 4.71 {x10E6/uL} Normal 3.77-5.28 [facility] Internal Medicine Work Phone: Comment on above: Test(s) 540466-XQL-M ; 188050-XBX-W; 582475-DUS-Q; 483837-Bgafrdzytihwd; 881930-Brndqaughod, Total; 998516-POG-O (Total);062949-Mqnwx LDL-P; 901898-MRC Size; 052203-LM-JS Scorewas developed and its performance characteristics determinedby EnvironmentIQ. It has not been cleared or approved by the Foodand Drug Administration.PATIENT WAS FASTINGPERFORMED BY: Nanophotonica [facility] Uphuvtgbki[address] [id number] BY: SeeVolution Qhvepf3159 [facility] [id number] RBC (Bld) [#/Vol] 4.71 10*6/uL Normal 3.77-5.28 [facility] Internal Medicine; [facility] Internal Medicine Work Phone: Comment on above: Test(s) 925217-TJW-O ; 794349-VWJ-Z; 703052-FCG-A; 949661-Pcwlulxlmxttj; 187672-Yreshleohnn, Total; 248490-SPO-T (Total);541840-Bpkbm LDL-P; 505489-KFL Size; 305920-NJ-AN Scorewas developed and its performance characteristics determinedby EnvironmentIQ. It has not been cleared or approved by the Foodand Drug Administration.PATIENT WAS FASTINGPERFORMED BY: Nanophotonica [facility] Mzgbycvbxa[address] [id number] BY: CB [facility] Hurxcr3928 [facility] [id number] WBC (Bld) [#/Vol] 3.3 {x10E3/uL} Abnormal 3.4-10.8 [facility] Internal Medicine Work Phone: Comment on above: Test(s) 265687-OJY-Q ; 535091-VLQ-A; 348235-QBT-L; 860949-Kvjjlyfkrkrva; 697718-Fopiihshfla, Total; 882756-AYY-P (Total);528880-Yqpad LDL-P; 234646-FUS Size; 665857-FE-ZN Scorewas developed and its performance characteristics determinedby Environment[employer]. It has not been cleared or approved by the Foodand Drug Administration.PATIENT WAS FASTINGPERFORMED BY: [employer] Communications[address] [id number] BY: SiRF Technology HoldingsCardinal Hill Rehabilitation Center [id number] WBC (Bld) [#/Vol] 3.3 10*3/uL Abnormal 3.4-10.8 [facility] Internal Medicine; [facility] Internal Medicine Work Phone: Comment on above: Test(s) 743787-SFE-S ; 725710-PLB-Z; 213940-KGS-R; 275358-Udyazkrisswno; 096993-Druwhhgezwp, Total; 101107-QJB-X (Total);901018-Qidkz LDL-P; 919408-XMJ Size; 411951-YY-LP Scorewas developed and its performance characteristics determinedby [employer]. It has not been cleared or approved by the Foodand Drug Administration.PATIENT WAS FASTINGPERFORMED BY: [employer] [id number] BY: Taodyne6370 [facility] [id number] HGB A1C (61622)Ordered By: Judah ystem Client Care Specialist on 03-15-2019 HbA1c (Bld) [Mass fraction] 5.7 % Abnormal 4.8-5.6 [facility] Internal Medicine Work Phone: Comment on above: . Prediabetes: 5.7 - 6.4 Diabetes: >6.4 Glycemic control for adults with diabetes: <7.0 Test(s) 667595-KZR-P ; 569360-LTA-B; 144485-OXO-A; 958332-Jqpgwjbmzhbhp; 379230-Odmnigwhyrz, Total; 314293-VQL-I (Total);633050-Tibjx LDL-P; 492675-GYY Size; 640678-MS-QO Scorewas developed and its performance characteristics determinedby [employer]. It has not been cleared or approved by the Foodand Drug Administration.PATIENT WAS FASTINGPERFORMED BY: [address] [id number] BY: [facility] Bzvsdy9513 [facility] [id number] Metabolic Panel, Comprehensi ve (50475)Ordered By: Photography Professor on 03-15-2019 Albumin [Mass/Vol] 4.5 g/dL Normal 3.6-4.8 [facility] Internal Medicine Work Phone: Comment on above: Test(s) 450600-WVH-M ; 813287-DUH-B; 132432-BII-Z; 055961-Nbqzrsmydbogo; 864072-Nxibcelcjak, Total; 444427-EUG-J (Total);869967-Xhlpz LDL-P; 715509-XDR Size; 758422-HL-SH Scorewas developed and its performance characteristics determinedby [employer]. It has not been cleared or approved by the Foodand Drug Administration.PATIENT WAS FASTINGPERFORMED BY: [address] [id number] BY: Taodyne6370 [facility] [id number] Albumin/Globulin [Mass ratio] 2.0 {ratio} Normal 1.2-2.2 [facility] Work Phone: Comment on above: Test(s) 986862-PIM-H ; 311329-VSS-J; 483826-EOX-S; 843441-Wiaydrclhtmxm; 812558-Gtqtiikusrp, Total; 605307-WVK-Y (Total);684233-Xnyyb LDL-P; 693541-RMT Size; 936431-CM-WF Scorewas developed and its performance characteristics determinedby [employer]. It has not been cleared or approved by the Foodand Drug Administration.PATIENT WAS FASTINGPERFORMED BY: [employer] [id number] BY: UniphoreAtlantiCare Regional Medical Center, Mainland CampusHphdly9170 [facility] [id number] ALP [Catalytic activity/Vol] 86 [iU]/L Normal 39-117 [facility] Work Phone: Comment on above: Test(s) 527567-JSX-Q ; 716505-BOM-W; 418744-VQF-X; 889834-Tfewjhompqpeh; 956884-Axsulohaney, Total; 337473-MJL-P (Total);110866-Pxifa LDL-P; 191686-PZS Size; 893941-JX-NQ Scorewas developed and its performance characteristics determinedby [employer]. It has not been cleared or approved by the Foodand Drug Administration.PATIENT WAS FASTINGPERFORMED BY: [address] [id number] BY: UniphoreAtlantiCare Regional Medical Center[facility] Mainland CampusEcunyu7078 [facility] [id number] ALP [Catalytic activity/Vol] 86 U/L Normal 39-117 [facility]; [facility] Work Phone: Comment on above: Test(s) 485195-JYG-T ; 066232-DZC-C; 231494-OJR-R; 458498-Akpidfsmqbrtx; 912593-Covbswpxdxl, Total; 103050-ASY-B (Total);786263-Hecph LDL-P; 901751-VDF Size; 633564-YH-WW Scorewas developed and its performance characteristics determinedby [employer]. It has not been cleared or approved by the Foodand Drug Administration.PATIENT WAS FASTINGPERFORMED BY: [employer] [id number] BY: UniphoreAtlantiCare [facility] Medical Center, Mainland CampusEyhnoq5249 [facility] [id number] ALT [Catalytic activity/Vol] 22 [iU]/L Normal 0-32 [facility] Work Phone: Comment on above: Test(s) 942144-HQV-Q ; 190689-XDW-U; 615752-MTI-W; 964239-Iefktsamdekfz; 062266-Cbvrqcelvtp, Total; 627276-SVA-B (Total);599825-Iuicy LDL-P; 245240-UKN Size; 427217-AV-JH Scorewas developed and its performance characteristics determinedby [employer]. It has not been cleared or approved by the Foodand Drug Administration.PATIENT WAS FASTINGPERFORMED BY: [employer] [id number] BY: UniphoreJose [place] 1809070 [facility] [id number] ALT [Catalytic activity/Vol] 22 U/L Normal 0-32 [facility]; [facility] Work Phone: Comment on above: Test(s) 922613-BME-W ; 402389-VAF-T; 714979-GPB-A; 431401-Jseabrdvxaqmv; 018357-Gbcpbaqrubj, Total; 085042-RCJ-Y (Total);309478-Kgdic LDL-P; 802910-NHO Size; 445419-OY-QQ Scorewas developed and its performance characteristics determinedby [employer]. It has not been cleared or approved by the Foodand Drug Administration.PATIENT WAS FASTINGPERFORMED BY: [employer] [id number] BY: UniphoreAtlantiCare Regional Medical Center, Mainland CampusXqqilv3925 [facility] [id number] AST [Catalytic activity/Vol] 28 [iU]/L Normal 0-40 [facility] Work Phone: Comment on above: Test(s) 105174-ORA-Y ; 194848-ZBW-P; 373112-JBJ-V; 290220-Mknhtogpwwgfi; 227533-Godwvgssqdk, Total; 682745-EDQ-Y (Total);973595-Rrfps LDL-P; 277259-ZZB Size; 494841-PY-AN Scorewas developed and its performance characteristics determinedby [employer]. It has not been cleared or approved by the Foodand Drug Administration.PATIENT WAS FASTINGPERFORMED BY: Un[employer] [id number] BY: [employer] Qhkfda4294 [place] MadBid.comGranville Medical Center [id number] AST [Catalytic activity/Vol] 28 U/L Normal 0-40 [facility]; [facility] Work Phone: Comment on above: Test(s) 823245-EXI-J ; 325959-ARO-F; 664964-VZI-K; 955346-Hnsanjcjrcxib; 037653-Beuoenyqdxy, Total; 205116-SGJ-V (Total);277365-Attfe LDL-P; 269059-PWZ Size; 746189-TT-VJ Scorewas developed and its performance characteristics determinedby [employer]. It has not been cleared or approved by the Foodand Drug Administration.PATIENT WAS FASTINGPERFORMED BY: [address] [id number] BY: Taodyne6370 [place] MadBid.comGranville Medical Center [id number] Bilirubin [Mass/Vol] 0.6 mg/dL Normal 0.0-1.2 [facility] Internal Medicine Work Phone: Comment on above: Test(s) 839183-PMF-N ; 436245-XHH-F; 128643-JOV-Y; 679084-Omyjvmelfwqkq; 327354-Azsmqqqybdz, Total; 574635-WQJ-J (Total);463285-Qsfnq LDL-P; 336337-OLR Size; 264128-PS-XY Scorewas developed and its performance characteristics determinedby [employer]. It has not been cleared or approved by the Foodand Drug Administration.PATIENT WAS FASTINGPERFORMED BY: [address] [id number] BY: Taodyne6370 [facility] [id number] Calcium [Mass/Vol] 9.2 mg/dL Normal 8.7-10.3 [facility] Internal Medicine Work Phone: Comment on above: Test(s) 890353-YZP-G ; 479043-MDI-R; 122514-XSY-G; 361123-Lohyyxwpxccxx; 092008-Xfowgtbhiuf, Total; 572785-MBU-Y (Total);904814-Ywzjg LDL-P; 249233-ERD Size; 832938-OP-SO Scorewas developed and its performance characteristics determinedby [employer]. It has not been cleared or approved by the Foodand Drug Administration.PATIENT WAS FASTINGPERFORMED BY: [employer] [id number] BY: [employer]70 [facility] [id number] Chloride [Moles/Vol] 103 mmol/L Normal 96-106 [facility] Internal Medicine Work Phone: Comment on above: Test(s) 369977-POS-I ; 770923-YYZ-C; 521465-PME-R; 066934-Qyvhdqbzhsuqg; 837884-Yjmpbtidjno, Total; 776869-SEQ-X (Total);156192-Skxig LDL-P; 892776-KZX Size; 484062-UB-JN Scorewas developed and its performance characteristics determinedby [employer]. It has not been cleared or approved by the Foodand Drug Administration.PATIENT WAS FASTINGPERFORMED BY: [employer] [id number] BY: Taodyne6370 [facility] [id number] CO2 [Moles/Vol] 25 mmol/L Normal 20-29 [facility] Internal Medicine Work Phone: Comment on above: Test(s) 235004-OQN-N ; 155474-QIU-O; 418852-LQB-D; 077947-Xcypjewhdcdnz; 072066-Gfjqtfkohns, Total; 919486-DDG-L (Total);163631-Ejytq LDL-P; 974356-YMZ Size; 946077-PQ-JD Scorewas developed and its performance characteristics determinedby [employer]. It has not been cleared or approved by the Foodand Drug Administration.PATIENT WAS FASTINGPERFORMED BY: [employer] [id number] BY: Taodyne6370 [facility] [id number] Creatinine [Mass/Vol] 0.61 mg/dL Normal 0.57-1.00 [facility] Work Phone: Comment on above: Test(s) 045553-AZZ-K ; 995327-ZTK-S; 606660-WZT-N; 715358-Dhulzntbrazhu; 166042-Oaaofqlvuap, Total; 778007-IUA-V (Total);063841-Ukwsb LDL-P; 871853-BXK Size; 349156-HL-YL Scorewas developed and its performance characteristics determinedby [employer]. It has not been cleared or approved by the Foodand Drug Administration.PATIENT WAS FASTINGPERFORMED BY: [address] [id number] BY: ClearMomentum70 [facility] [id number] GFR/1.73 sq M predicted among blacks CKD-EPI (S/P/Bld) [Vol rate/Area] 113 mL/min/1.73 Normal [facility] Work Phone: Comment on above: Test(s) 989259-TQK-Z ; 090340-CZO-N; 232518-YSI-V; 954470-Nwtbgjewtmsas; 395081-Hkyedbnyvjj, Total; 833888-ZVC-V (Total);687676-Xjyia LDL-P; 873843-QUZ Size; 132110-CB-SX Scorewas developed and its performance characteristics determinedby [employer]. It has not been cleared or approved by the Foodand Drug Administration.PATIENT WAS FASTINGPERFORMED BY: [address] [id number] BY: Denwa Communicationslin6370 [facility] [id number] GFR/1.73 sq M predicted among non-blacks CKD-EPI (S/P/Bld) [Vol rate/Area] 98 mL/min/1.73 Normal [facility] Work Phone: Comment on above: Test(s) 213388-UGR-M ; 924049-CSG-H; 632903-BDT-U; 425058-Wscfqstoijwrm; 059190-Nmddpcxqwih, Total; 090520-OMW-A (Total);340208-Tuohu LDL-P; 659336-OKF Size; 921960-FO-WF Scorewas developed and its performance characteristics determinedby [employer]. It has not been cleared or approved by the Foodand Drug Administration.PATIENT WAS FASTINGPERFORMED BY: [address] [id number] BY: [employer] Ufcuxy9840 [facility] [id number] Globulin (S) [Mass/Vol] 2.3 g/dL Normal 1.5-4.5 [facility] Internal Medicine Work Phone: Comment on above: Test(s) 997930-WKP-E ; 789056-UAD-F; 339894-WHF-X; 900029-Wnpciouksngfh; 747455-Qtgszfqwuox, Total; 296073-GYR-R (Total);356410-Icknm LDL-P; 481256-ROU Size; 151940-GZ-AH Scorewas developed and its performance characteristics determinedby [employer]. It has not been cleared or approved by the Foodand Drug Administration.PATIENT WAS FASTINGPERFORMED BY: [address] [id number] BY: [facility] Gniwbq3884 [facility] [id number] Glucose [Mass/Vol] 87 mg/dL Normal 65-99 [facility] Internal Medicine Work Phone: Comment on above: Test(s) 716853-JOL-X ; 419574-AVF-X; 538251-TAT-Q; 241539-Xkrtxufseljec; 408066-Qyugfmhhdoh, Total; 843196-KXW-X (Total);151709-Jwxhh LDL-P; 704255-OSV Size; 256100-TM-MN Scorewas developed and its performance characteristics determinedby [employer]. It has not been cleared or approved by the Foodand Drug Administration.PATIENT WAS FASTINGPERFORMED BY: BN [employer] [id number] BY: UniphoreAlbuquerque Indian Health CenterInnuas6770 [facility] [id number] Potassium [Moles/Vol] 4.1 mmol/L Normal 3.5-5.2 [facility] Internal Medicine Work Phone: Comment on above: Test(s) 055668-HMR-S ; 832950-HMF-J; 458075-IOA-T; 371989-Wqihyvehxjlrx; 078333-Bwxbyuqozcp, Total; 947445-KRR-X (Total);202969-Klnsn LDL-P; 612004-RDL Size; 099094-JB-TF Scorewas developed and its performance characteristics determinedby [employer]. It has not been cleared or approved by the Foodand Drug Administration.PATIENT WAS FASTINGPERFORMED BY: [employer] [address] [id number] BY: [employer] Qdwrwh2366 [facility] [id number] Protein [Mass/Vol] 6.8 g/dL Normal 6.0-8.5 [facility] Internal Medicine Work Phone: Comment on above: Test(s) 664269-SHT-J ; 342875-BOJ-C; 914280-QCX-T; 493791-Gnefutmvusvth; 083628-Zwhveqtujaw, Total; 177960-PWB-U (Total);027251-Ecvqr LDL-P; 802194-IJA Size; 930599-DL-YQ Scorewas developed and its performance characteristics determinedby [employer]. It has not been cleared or approved by the Foodand Drug Administration.PATIENT WAS FASTINGPERFORMED BY: Un[employer]ore[address] [id number] BY: UniphoreAtlantiCare Regional Medical Center, Mainland CampusTowpjy4680 [facility] [id number] Sodium [Moles/Vol] 142 mmol/L Normal 134-144 [facility] Internal Medicine Work Phone: Comment on above: Test(s) 385843-ITK-V ; 587685-VWT-V; 211114-DZH-C; 012246-Yoqeitgfsxraz; 615897-Ymytiiwdqpt, Total; 795348-XDH-D (Total);521461-Wytoz LDL-P; 764373-SFL Size; 935169-HZ-NG Scorewas developed and its performance characteristics determinedby [employer]. It has not been cleared or approved by the Foodand Drug Administration.PATIENT WAS FASTINGPERFORMED BY: [address] [id number] BY: Taodyne6370 [facility] [id number] Urea nitrogen [Mass/Vol] 13 mg/dL Normal 8- [facility] Work Phone: Comment on above: Test(s) 164208-VXW-P ; 197786-TQF-N; 880203-AOS-Z; 979393-Ehmpufrveulrx; 979395-Cbwgnfyjayp, Total; 231457-PAM-Q (Total);935632-Xclrb LDL-P; 860889-HEF Size; 850106-FB-VA Scorewas developed and its performance characteristics determinedby [employer]. It has not been cleared or approved by the Foodand Drug Administration.PATIENT WAS FASTINGPERFORMED BY: [address] [id number] BY: Taodyne6370 [facility] [id number] Urea nitrogen/Creatinine [Mass ratio] 21 mg/mg Normal 12- [facility] Work Phone: Comment on above: Test(s) 386344-OZG-G ; 800943-CIE-M; 973755-ZKV-Y; 022803-Vxyxgkmweuemd; 942964-Jusfujyofke, Total; 787432-WRU-B (Total);258080-Ejljo LDL-P; 589115-IAP Size; 212222-EA-CC Scorewas developed and its performance characteristics determinedby [employer]. 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 It has not been cleared or approved by the Foodand Drug Administration.PATIENT WAS FASTINGPERFORMED BY: [employer] [id number] BY: Taodyne6370 [facility] [id number] Cholesterol in HDL [Mass/Vol] 67 mg/dL Normal [facility] Work Phone: Comment on above: Test(s) 842232-GSS-K ; 943800-IZQ-O; 015639-VEB-N; 033554-Cexklpziqeoea; 414799-Aqizotuinad, Total; 152817-BXV-A (Total);728138-Hcwps LDL-P; 145225-EGL Size; 202662-PF-GJ Scorewas developed and its performance characteristics determinedby [employer]. It has not been cleared or approved by the Foodand Drug Administration.PATIENT WAS FASTINGPERFORMED BY: [address] [id number] BY: Taodyne6370 [facility] [id number] Lipoprotein.alpha [Moles/Vol] 33.0 umol/L Normal [facility] Work Phone: Comment on above: Test(s) 569110-KKL-C ; 345358-RUG-D; 230718-QOR-P; 960733-Wgcwjlotudymy; 820086-Apyojrmgqzv, Total; 515219-MWS-V (Total);117000-Zentw LDL-P; 521037-PKY Size; 932481-TC-ND Scorewas developed and its performance characteristics determinedby [employer]. It has not been cleared or approved by the Foodand Drug Administration.PATIENT WAS FASTINGPERFORMED BY: BN [facility] Genwzqqhay3516 [facility] [id number] BY: CB [facility] Ugsewd2470 [facility] [id number] Lipoprotein.beta.sub particle [Entitic length] 21.1 nm Normal [facility] Work Phone: Comment on above: INTERPRETATIVE INFORMATION PARTICLE CONCENTRATION AND SIZE <--Lower CVD Risk Higher CVD Risk--> LDL AND HDL PARTICLES Percentile [...] but not afterLDL-P is taken into account. Test(s) 280397-OPE-B ; 413128-RTZ-W; 988266-XAK-Z; 676953-Aisldymevqjyx; 400602-Uhajkjmscza, Total; 789449-BXN-N (Total);632766-Xsznx LDL-P; 335281-DWJ Size; 782371-FY-EG Scorewas developed and its performance characteristics determinedby [employer]. It has not been cleared or approved by the Foodand Drug Administration.PATIENT WAS FASTINGPERFORMED BY: [employer] [id number] BY: See[employer]olution Fyesov1005 [facility]MeBets[facility] [id number] Lipoprotein.beta.sub particle [Moles/Vol] 1320 nmol/L Abnormal Comprehensi Internal Medicine Work Phone: Comment on above: Low < 1000 Moderate 1000 - 1299 Borderline-High 1300 - 1599 High 1600 - 2000 Very High > 2000 Test(s) 480637-BVN-W ; 638192-ULM-S; 293726-SWZ-J; 817753-Kcpsttloiwruk; 219715-Zbpwxnvdacv, Total; 800750-JOQ-E (Total);036365-Iprmp LDL-P; 365976-QYL Size; 583922-LN-WR Scorewas developed and its performance characteristics determinedby [employer]. It has not been cleared or approved by the Foodand Drug Administration.PATIENT WAS FASTINGPERFORMED BY: [address] [id number] BY: ClearMomentum70 [facility]MeBets[facility] [id number] Lipoprotein.beta.sub particle.small [Moles/Vol] 334 nmol/L Normal [facility] Internal Medicine Work Phone: Comment on above: Test(s) 515488-CTD-M ; 368526-NAB-X; 923914-SCS-B; 135921-Ptbodidgikyrp; 982490-Vlrjoshlpqy, Total; 378920-UKR-U (Total);197640-Fpkht LDL-P; 592989-EQE Size; 476622-JY-OU Scorewas developed and its performance characteristics determinedby [employer]. It has not been cleared or approved by the Foodand Drug Administration.PATIENT WAS FASTINGPERFORMED BY: [address] [id number] BY: Taodyne6370 [place] MadBid.comGranville Medical Center [id number] Triglyceride [Mass/Vol] 55 mg/dL Normal 0-149 [facility] Work Phone: Comment on above: Test(s) 503120-TTU-N ; 921741-FSM-P; 386518-MWS-B; 319665-Sdqiwkfbhkdzh; 305496-Wyhxninbagr, Total; 399437-WNO-V (Total);743083-Ksstj LDL-P; 214953-SOJ Size; 673515-TG-BY Scorewas developed and its performance characteristics determinedby [employer]. It has not been cleared or approved by the FoodActionX Drug Administration.PATIENT WAS FASTINGPERFORMED BY: [employer] [id number] BY: Clear[employer]um70 [facility] [id number] NMR Profile (20052) 114 mg/dL Abnormal 0-99 [facility] Internal Medicine Work Phone: Comment on above: . Optimal < 100 Abov e optimal 100 - 129 Borderline 130 - 159 High 160 - 189 Very high > 189 .LDL-C is inaccurate if patient is non-fasting. Test(s) 274194-QAZ-B ; 177762-OVK-E; 621943-WCI-T; 845188-Eyvbddzvxhbzw; 124583-Itksmfutuoa, Total; 913486-KUG-A (Total);395331-Mknec LDL-P; 731871-QVP Size; 298660-WS-QZ Scorewas developed and its performance characteristics determinedby [employer]. It has not been cleared or approved by the FoodActionX Drug Administration.PATIENT WAS FASTINGPERFORMED BY: [address] [id number] BY: Taodyne6370 [facility] [id number] NMR Profile (29253) 67 mg/dL Normal Compr ehensive Internal Medicine; [facility] Work Phone: NMR Profile (91097) 55 mg/dL Normal 0-149 Compr ehensive Internal Medicine; [facility] Work Phone: NMR Profile (62906) 192 mg/dL Normal 100-199 Compr ehensive Internal Medicine; [facility] Work Phone: TSH (06317)Ordered By: Sarita m Client Care Specialist on 03-15-2019 TSH Qn 1.640 {uIU/mL} Normal 0.450-4.500 Prabhjot gregorio Internal Medicine Work Phone: Comment on above: Test(s) 887170-IPI-H ; 810978-HBO-Q; 664127-TLL-H; 612437-Atramihentifx; 289872-Pjgqmlqnnyb, Total; 059638-BIV-Y (Total);959213-Jhbsr LDL-P; 675693-ZGK Size; 020644-BP-KG Scorewas developed and its performance characteristics determinedby [employer]. It has not been cleared or approved by the Foodand Drug Administration.PATIENT WAS FASTINGPERFORMED BY: [employer] [address] [id number] BY: [employer] [place] [id number] URINE CHARLY CULTURE-IDENTIFICA [place] (74353)Ordered By: Photography Professor on 11-18-2018 Bacteria identified Cx Nom (U) Final report Abnormal [facility] Work Phone: Comment on above: PERFORMED BY: [employer] [place] [id number] Information: SRC:UC Bacteria identified Cx Nom (U) Escherichia coli Abnormal [facility] Work Phone: Comment on above: Greater than 100,000 colony forming units per mLCefazolin <=4 ug/mLCefazolin with an GLORIA <=16 predicts susceptibility to the oral agentscefaclor, cefdinir, cefpodoxime, cefprozil, cefuroxime, cephalexin,and loracarbef when used for therapy of uncomplicated urinary tractinfections due to E. coli, Klebsiella pneumoniae, and Proteusmirabilis. PERFORMED BY: [employer] [place] [id number] Information: SRC:UC Other Antibiotic [Susc] MIHEAD Normal [facility] Work Phone: Comment on above: S = Susceptible; I = Intermediate; R = Resistant P = Positive; N = Negative MICS are expressed in micrograms per mL Antibiotic RSLT#1 RSLT#2 RSLT#3 RSLT#4Amoxicillin/Clavulanic Acid SAmpicillin RCefepime SCeftriaxone SCefuroxime SCiprofloxacin SErtapenem SGentamicin SImipenem SLevofloxacin SMeropenem SNitrofurantoin SPiperacillin/Tazobactam STetracycline STobramycin STrimethoprim/Sulfa S PERFORMED BY: [employer] Qfbjvh3483 [facility] [id number] Information: SRC: Urinalysis, Office (21396)Or dered By: Shannon Elkins on 11-18-2018 Hemoglobin Ql (U) +++ Abnormal Compreh ensive Internal Medicine Work Phone: Leukocyte esterase Test strip Ql (U) Moderate Normal [facility] Work Phone: Comment on above: 2+ Nitrite Ql (U) + Abnormal Comprehens rubi Internal Medicine Work Phone: pH (U) 6.0 [pH] Normal [facility] Work Phone: Specific gravity (U) [Rel density] 1.005 1 Normal [facility] Work Phone: Established Visit (Gastroent erology)on 10-17-2018 Established Visit (Gastroenterology) Chief Complaint Schedule screening colonoscopy for history of colon polyps History of Present Illness 63 - Year old female presents today to schedule a routine colonoscopy for history of colon polyps. Most recent colonoscopy [place] [address] Yuen. Patient denies current problems. Bowel movements are regular. She denies diarrhea, constipation, rectal bleeding, blood in the stool or melena. She denies nausea, vomiting, changes in appetite, unexplained weight loss, fevers, heartburn or dysphagia. Patient had a normal heart cath completed last fall. She is on Lopressor. She has followed with her Stereoplotter Operator, Dr. Thrasher, and denies any current cardiac concerns. Review of Systems Const: Denies fatigue, fever and weight loss. CV: Reports palpitations. Denies chest pain, pacemaker, and valvular heart disease. Resp: Denies cough, sleep apnea, SOB and snoring. GI: Denies symptoms other than stated above. Active Problems Personal history of colonic polyps (V12.72) (Z86.010) Past Medical History History of colon polyps (V12.72) (Z86.010) Denied: History of complications due to general anesthesia History of diverticulitis (V12.70) (Z87.19) 02-03-2018- TREATED BY PCP WITH ORAL ANTIBIOTICS- PAIN HAS RESOLVED NO TESTING DONE History of diverticulosis (V12.79) (Z87.19) History of hemorrhoids (V13.89) (Z87.19) History of urinary incontinence (V13.09) (Z87.898) Surgical History History of Cardiac catheterization 03-09-18- NORMAL - History of Cholecystectomy 2001- LAP SX History of Colonoscopy [id number], HEMORRHOIDS, 2012- COLON POLYP, HEMORRHOIDS Denied: History of Esophagogastroduodenoscop y Family History Family history of UNKNOWN CAUSES Denied: Family history of malignant neoplasm of colon Social History Active advance directive (V49.89) (Z78.9) Daily caffeine consumption ONE CUP TEA DAILY History of body piercing (V45.89) (Z98.890) EARS No alcohol use No illicit drug use Non-smoker (V49.89) (Z78.9) Occasional caffeine consumption Well balanced diet (V49.89) (Z78.9) LOW CARB Allergies No Known Drug Allergies Recorded By: Chantel Wells; 03/30/2018 8:00:23 AM No Known Food Allergies Recorded By: Chantel Wells; 03/30/2018 10:49:01 AM Current Meds Lopressor TABS; 12.5 mg- ONE DAILY IN PM; Therapy: (Recorded:91Xko4017) to Recorded Dispense: 0 Days ; #: Sufficient Tablet; Refill: 0;For: PSH: Colonoscopy; SHANNAN = N; Record; Last Updated By: Chantel Wells; 03/30/2018 10:49:01 AM Multi Complete Oral Capsule; Therapy: (Recorded:76Dvv8223) to Recorded Dispense: 0 Days ; #: Sufficient; Refill: 0;For: PSH: Colonoscopy; SHANNAN = N; Record; Last Updated By: Chantel Wells; 03/30/2018 10:37:55 AM Vitals Vital Signs Recorded: 79Jox7567 12:59PM Heart Rate54 Cpflfcmw14 Gnqvmuxdo61 Height5 ft 4 in Csunxf101 lb BMI Fgzoredgtn03.03 BSA Calculated1.68 O2 Hgqnubvzer20, RA Physical Exam Const: Vital signs reviewed. Appears healthy and well-developed. ENMT: Oral mucosa moist with no thrust and no mucositis. Resp: Respiration rate is normal. Clear to auscultation. CV: Rhythm is regular. No heart murmur appreciated. Carotids 2+ and equal bilaterally, without bruits. Femorals 2+ and equal bilaterally, without bruits. Abdomen: Positive bowel sounds in all quadrants. No bruits. Normal to percussion. Palpation of the abdomen reveals softness but no tenderness, distension or fluid wave. No abdominal masses. No hernias. No palpable hepatosplenomegaly. Anus/Perineum/Rectum: Exam deferred. Diagnoses/Problems History of Colonoscopy [id number], HEMORRHOIDS, 2012- COLON POLYP, HEMORRHOIDS Daily caffeine consumption ONE CUP TEA DAILY History of Cardiac catheterization 03-09-18- NORMAL - Personal history of colonic polyps (V12.72) (Z86.010) Orders Personal history of colonic polyps Start: Suprep Bowel Prep Kit 17.5-3.13-1.6 GM/177ML Oral Solution; USE DIRECTED Rx By: Caty Lance; Dispense: 0 Days ; #:1 X 2 x 177 ML Bottle; Refill: 0;For: Personal history of colonic polyps; SHANNAN = N; Verified Transmission to [facility]; Last Updated By: Hashtago; 10/17/2018 1:28:08 PM Colonoscopy; Status:Hold For - Scheduling; Requested for:[id number]; Perform:[facility]; Due:87Mdp6798;Ordered; For:Personal history of colonic polyps; Ordered By:Caty Lance; Patient competent to provide consent? : Yes-pt mentally competent to provide consent Provider Impressions 1. History of colon polyps Patient Discussion/Summary 1. The diagnosis and evaluation options were discussed with the patient. A colonoscopy was recommended and scheduled. The procedure and sedation were discussed. Risks including but not limited to bleeding, perforation, reaction to medication, missed polyps, damage to other organs, and adverse cardiopulmonary events were discussed. The office endoscopy forms were reviewed and signed. The patients questions were answered. Patient was instructed about not driving the day of the exam after being sedated. 2. The patient appears medically stable for sedation and endoscopy. Signatures Electronically signed by : ANA Dougherty; Oct 17 2018 1:32PM EST (Author) Normal [employer] HEPATIC FUNCTION PANEL (8007 [id number])Ordered By: Photography Professor on 09-01-2018 Albumin mass conc 4.4 g/dL Normal 3.6-4.8 [facility] Internal Medicine Work Phone: Comment on above: PATIENT WAS FASTINGP ERFORMED BY: CB [facility] Gvfkcy8653 [address] RoadDublin [place] [id number] ALP [Catalytic activity/Vol] 81 U/L Normal 39-117 [facility]; [facility] Work Phone: Comment on above: PATIENT WAS FASTINGP ERFORMED BY: CB [facility] Lnajui7871 [address] RoadDublin [place] [id number] ALP enzyme act/vol 81 [iU]/L Normal 39-117 [facility] Internal Medicine Work Phone: Comment on above: PATIENT WAS FASTINGP ERFORMED BY: CB [facility] Ipwtne5512 [address] RoadDublin [place] [id number] ALT [Catalytic activity/Vol] 19 U/L Normal 0-32 [facility]; [facility] Work Phone: Comment on above: PATIENT WAS FASTINGP ERFORMED BY: CB [facility] Kaippt4227 [address] RoadDublin [place] [id number] ALT enzyme act/vol 19 [iU]/L Normal 0-32 [facility] Internal Medicine Work Phone: Comment on above: PATIENT WAS FASTINGP ERFORMED BY: CB [facility] Loueid2512 [address] RoadDublin [place] [id number] AST [Catalytic activity/Vol] 22 U/L Normal 0-40 [facility]; [facility] Work Phone: Comment on above: PATIENT WAS FASTINGP ERFORMED BY: CB [facility] Nqkxhi5915 [address] RoadDublin [place] [id number] AST enzyme act/vol 22 [iU]/L Normal 0-40 [facility] Internal [facility] Work Phone: Comment on above: PATIENT WAS FASTINGP ERFORMED BY: CB [facility] Nuwnno2035 [address] RoadDublin [place] [id number] Bilirubin mass conc 0.6 mg/dL Normal 0.0-1.2 [facility] Work Phone: Comment on above: PATIENT WAS FASTINGP ERFORMED BY: CB [facility] Cbhhsj4088 [address] RoadDublin [place] [id number] Bilirubin.direct mass conc 0.15 mg/dL Normal 0.00-0.40 [facility] Work Phone: Comment on above: PATIENT WAS FASTINGP ERFORMED BY: CB [facility] Qeevun6912 [address] RoadDublin [place] [id number] Protein mass conc 6.9 g/dL Normal 6.0-8.5 Compreh ensive Internal Medicine Work Phone: Comment on above: PATIENT WAS FASTINGP ERFORMED BY: CB [facility] Ortgkf3638 [address] Roadblin [place] [id number] LIPID PANEL ([id number])Ordered B y: Photography Professor on 09-01-2018 Cholesterol in HDL mass conc 66 mg/dL Normal [facility] Work Phone: Comment on above: PATIENT WAS FASTINGP ERFORMED BY: CB [facility] Kytuhp6673 Dodson RoadPerson Memorial Hospitalin [place] [id number]; fu 6-4 DB Cholesterol in LDL mass conc 117 mg/dL Abnormal 0-99 [facility] Work Phone: Comment on above: PATIENT WAS FASTINGP ERFORMED BY: CB [facility] Ynembz1832 [address] RoadPerson Memorial Hospitalin [place] [id number]; fu 6-4 DB Cholesterol in LDL/Cholesterol in HDL mass ratio 1.8 {ratio} Normal 0.0-3.2 [facility] Work Phone: Comment on above: LDL/HDL Ratio Men Wo men 1/2 Avg.Risk 1.0 1.5 Avg.Risk 3.6 3.2 2X Avg.Risk 6.2 5.0 3X Avg.Risk 8.0 6.1 PATIENT WAS FASTINGP ERFORMED BY: [facility] Lzadog[address] [facility] [id number]; fu 6-4 DB Cholesterol in VLDL mass conc 9 mg/dL Normal 5-40 [facility] Work Phone: Comment on above: PATIENT WAS FASTINGP ERFORMED BY: [facility] Bcuujy1626 [facility] [id number]; fu 6-4 DB Cholesterol mass conc 192 mg/dL Normal 100-199 [facility] Work Phone: Comment on above: PATIENT WAS FASTINGP ERFORMED BY: [facility] Sspzex[address] [facility] [id number]; fu 6-4 DB Triglyceride mass conc 46 mg/dL Normal 0-149 [facility] Work Phone: Comment on above: PATIENT WAS FASTINGP ERFORMED BY: LabMichelle Ville [id number] [facility] [id number]; fu 6-4 DB CBC WITH MANUAL DIFF ([id number]) Ordered By: Photography Professor on 05-25-2018 Basophils #/vol (Bld) 0.0 {x10E3/uL} Normal 0.0-0.2 [facility] Work Phone: Comment on above: PATIENT WAS FASTINGP ERFORMED BY: LabCoJose Ville [id number] [facility] [id number] Information: NURSE DRAW Basophils (Bld) [#/Vol] 0.0 10*3/uL Normal 0.0-0.2 [facility]; [facility] Work Phone: Comment on above: PATIENT WAS FASTINGP ERFORMED BY: [facility] Svykjo3971 [facility] [id number] Information: NURSE DRAW Basophils/100 WBC (Bld) 0 % Normal [facility] Work Phone: Comment on above: PATIENT WAS FASTINGP ERFORMED BY: [facility] Lpfdjp2047 [facility] [id number] Information: NURSE DRAW Eosinophils #/vol (Bld) 0.0 {x10E3/uL} Normal 0.0-0.4 [facility] Work Phone: Comment on above: PATIENT WAS FASTINGP ERFORMED BY: WHITLEY RobinErika [address] [id number] Information: NURSE DRAW Eosinophils (Bld) [#/Vol] 0.0 10*3/uL Normal 0.0-0.4 [facility]; [facility] Work Phone: Comment on above: PATIENT WAS FASTINGP ERFORMED BY: WIHTLEY [facility] HospitalHelen[address] [id number] Information: NURSE DRAW Eosinophils/100 WBC (Bld) 1 % Normal [facility] Work Phone: Comment on above: PATIENT WAS FASTINGP ERFORMED BY: WHITLEY [facility] HospitalHelen Jtowcp[address] [id number] Information: NURSE DRAW Erythrocyte distribution width Ratio (RBC) 13.7 % Normal 12.3-15.4 [facility] Work Phone: Comment on above: PATIENT WAS FASTINGP ERFORMED BY: WHITLEY Muse Oglrlm[address] [id number] Information: NURSE DRAW Hematocrit Volume Fraction (Bld) 39.0 % Normal 34.0-46.6 [facility] Work Phone: Comment on above: PATIENT WAS FASTINGP ERFORMED BY: WHITLEY [address] [id number] Information: NURSE DRAW Hemoglobin mass conc (Bld) 12.6 g/dL Normal 11.1-15.9 [facility] Work Phone: Comment on above: PATIENT WAS FASTINGP ERFORMED BY: WHITLEY [address] [id number] Information: NURSE DRAW Immature granulocytes #/vol (Bld) 0.0 {x10E3/uL} Normal 0.0-0.1 [facility] Work Phone: Comment on above: PATIENT WAS FASTINGP ERFORMED BY: [place] [id number] [facility] [id number] Information: NURSE DRAW Immature granulocytes (Bld) [#/Vol] 0.0 10*3/uL Normal 0.0-0.1 [facility]; [facility] Work Phone: Comment on above: PATIENT WAS FASTINGP ERFORMED BY: [address] [id number] Information: NURSE DRAW Immature granulocytes/100 WBC (Bld) 0 % Normal [facility] Work Phone: Comment on above: PATIENT WAS FASTINGP ERFORMED BY: [address] [id number] Information: NURSE DRAW Lymphocytes #/vol (Bld) 0.9 {x10E3/uL} Normal 0.7-3.1 [facility] Work Phone: Comment on above: PATIENT WAS FASTINGP ERFORMED BY: [address] [id number] Information: NURSE DRAW Lymphocytes (Bld) [#/Vol] 0.9 10*3/uL Normal 0.7-3.1 [facility]; [facility] Work Phone: Comment on above: PATIENT WAS FASTINGP ERFORMED BY: [address] [id number] Information: NURSE DRAW Lymphocytes/100 WBC (Bld) 24 % Normal [facility] Work Phone: Comment on above: PATIENT WAS FASTINGP ERFORMED BY: [address] [id number] Information: NURSE DRAW MCH Entitic mass (RBC) 27.3 pg Normal 26.6-33.0 [facility] Work Phone: Comment on above: PATIENT WAS FASTINGP ERFORMED BY: [address] [id number] Information: NURSE DRAW MCHC mass conc (RBC) 32.3 g/dL Normal 31.5-35.7 Comp rust Internal Medicine Work Phone: Comment on above: PATIENT WAS FASTINGP ERFORMED BY: WHITLEY Parrishlin6370 [facility] [id number] Information: NURSE DRAW MCV Entitic volume (RBC) 84 fL Normal 79-97 [facility] Work Phone: Comment on above: PATIENT WAS FASTINGP ERFORMED BY: WHITLEY [facility] HospitalHelen[address] [id number] Information: NURSE DRAW Monocytes #/vol (Bld) 0.3 {x10E3/uL} Normal 0.1-0.9 [facility] Work Phone: Comment on above: PATIENT WAS FASTINGP ERFORMED BY: WHITLEY Muse Ziseki76[address] [id number] Information: NURSE DRAW Monocytes (Bld) [#/Vol] 0.3 10*3/uL Normal 0.1-0.9 [facility]; [facility] Work Phone: Comment on above: PATIENT WAS FASTINGP ERFORMED BY: WHITLEY Parrish[address] [id number] Information: NURSE DRAW Monocytes/100 WBC (Bld) 7 % Normal [facility] Work Phone: Comment on above: PATIENT WAS FASTINGP ERFORMED BY: WHITLEY Parrish[address] [id number] Information: NURSE DRAW Neutrophils #/vol (Bld) 2.6 {x10E3/uL} Normal 1.4-7.0 [facility] Work Phone: Comment on above: PATIENT WAS FASTINGP ERFORMED BY: WHITLEY [facility] HospitalHelen[address] [id number] Information: NURSE DRAW Neutrophils (Bld) [#/Vol] 2.6 10*3/uL Normal 1.4-7.0 [facility]; [facility] Work Phone: Comment on above: PATIENT WAS FASTINGP ERFORMED BY: WHITLEY KellyErika ParrishFpfncu8604 [facility] [id number] Information: NURSE DRAW Neutrophils/100 WBC (Bld) 68 % Normal [facility] Work Phone: Comment on above: PATIENT WAS FASTINGP ERFORMED BY: WHITLEY RobinErika ParrishXgvvut9920 [facility] [id number] Information: NURSE DRAW Platelets #/vol (Bld) 184 {x10E3/uL} Normal 150-379 [facility] Work Phone: Comment on above: PATIENT WAS FASTINGP ERFORMED BY: WHITLEY [address] [id number] Information: NURSE DRAW Platelets (Bld) [#/Vol] 184 10*3/uL Normal 150-379 [facility]; [facility] Internal Medicine Work Phone: Comment on above: PATIENT WAS FASTINGP ERFORMED BY: WHITLEY [facility] Mbkjxy550[address] [id number] Information: NURSE DRAW RBC #/vol (Bld) 4.62 {x10E6/uL} Normal 3.77-5.28 [facility] Internal Medicine Work Phone: Comment on above: PATIENT WAS FASTINGP ERFORMED BY: WHITLEY RobinErika ParrishJlxvwg2354 [facility] [id number] Information: NURSE DRAW RBC (Bld) [#/Vol] 4.62 10*6/uL Normal 3.77-5.28 [facility] Internal Medicine; [facility] Internal Medicine Work Phone: Comment on above: PATIENT WAS FASTINGP ERFORMED BY: WHITLEY [place] [id number] [facility] [id number] Information: NURSE DRAW WBC #/vol (Bld) 3.8 {x10E3/uL} Normal 3.4-10.8 [facility] Internal Medicine Work Phone: Comment on above: PATIENT WAS FASTINGP ERFORMED BY: WHITLEY [facility] Hospitalkarli ParrishDfstas1452 [facility] [id number] Information: NURSE DRAW WBC (Bld) [#/Vol] 3.8 10*3/uL Normal 3.4-10.8 [facility] Internal Medicine; [facility] Internal Medicine Work Phone: Comment on above: PATIENT WAS FASTINGP ERFORMED BY: WHITLEY Michakarli ParrishIrdobk[address] [facility] [id number] Information: NURSE DRAW Metabolic Panel, Geronimoi sharad ([id number])Ordered By: Photography Professor on 05-25-2018 Albumin mass conc 4.4 g/dL Normal 3.6-4.8 Compreh [facility] Internal Medicine Work Phone: Comment on above: PATIENT WAS FASTINGP ERFORMED BY: WHITLEY Parrishlin6370 [facility] [id number] Albumin/Globulin mass ratio 2.1 {ratio} Normal 1.2-2.2 [facility] Internal Medicine Work Phone: Comment on above: PATIENT WAS FASTINGP ERFORMED BY: WHITLEY [facility] Mvktiq6199 [facility] [id number] ALP [Catalytic activity/Vol] 76 U/L Normal 39-117 [facility] Internal Medicine; [facility] Internal Medicine Work Phone: Comment on above: PATIENT WAS FASTINGP ERFORMED BY: WHITLEY Parrishlin6370 [facility] [id number] ALP enzyme act/vol 76 [iU]/L Normal 39-117 [facility] Internal Medicine Work Phone: Comment on above: PATIENT WAS FASTINGP ERFORMED BY: WHITLEY [facility] Fnvhza7945 [facility] [id number] ALT [Catalytic activity/Vol] 24 U/L Normal 0-32 [facility]; [facility] Internal Medicine Work Phone: Comment on above: PATIENT WAS FASTINGP ERFORMED BY: WHITLEY LabHelen Xvpxwh6585 [facility] [id number] ALT enzyme act/vol 24 [iU]/L Normal 0-32 [facility] Internal Medicine Work Phone: Comment on above: PATIENT WAS FASTINGP ERFORMED BY: WHITLEY [facility] Wmcazu3427 [address] RoadDublin [place] [id number] AST [Catalytic activity/Vol] 25 U/L Normal 0-40 [facility]; [facility] Work Phone: Comment on above: PATIENT WAS FASTINGP ERFORMED BY: [facility] Lxsrex6996 [address] RoadDublin [place] [id number] AST enzyme act/vol 25 [iU]/L Normal 0-40 [facility] Internal Medicine Work Phone: Comment on above: PATIENT WAS FASTINGP ERFORMED BY: [facility] Eetuvf5718 [address] RoadDublin [place] [id number] Bilirubin mass conc 0.5 mg/dL Normal 0.0-1.2 [facility] Internal Medicine Work Phone: Comment on above: PATIENT WAS FASTINGP ERFORMED BY: [facility] Psnguf2662 [address] RoadDublin [place] [id number] Calcium mass conc 9.1 mg/dL Normal 8.7-10.3 Compreh [facility] Internal Medicine Work Phone: Comment on above: PATIENT WAS FASTINGP ERFORMED BY: [facility] Qfftaf4257 [address] RoadDublin [place] [id number] Chloride molar conc 105 mmol/L Normal 96-106 [facility] Internal Medicine Work Phone: Comment on above: PATIENT WAS FASTINGP ERFORMED BY: [facility] Ozlnth5010 [address] RoadDublin [place] [id number] CO2 molar conc 24 mmol/L Normal 20-29 [facility] Work Phone: Comment on above: PATIENT WAS FASTINGP ERFORMED BY: [facility] Dxjypo5704 [address] RoadDublin [place] [id number] Creatinine mass conc 0.59 mg/dL Normal 0.57-1.00 [facility] Internal Medicine Work Phone: Comment on above: PATIENT WAS FASTINGP ERFORMED BY: [facility] Aayorf6633 [address] RoadDublin [place] [id number] GFR/1.73 sq M predicted among blacks CKD-EPI vol rate/area (S/P/Bld) 115 mL/min/1.73 Normal Comprehensiv e Internal Medicine Work Phone: Comment on above: PATIENT WAS FASTINGP ERFORMED BY: WHITLEY [facility] Cizshd4652 [address] RoadDublin [place] [id number] GFR/1.73 sq M predicted among non-blacks CKD-EPI vol rate/area (S/P/Bld) 100 mL/min/1.73 Normal [facility] Work Phone: Comment on above: PATIENT WAS FASTINGP ERFORMED BY: WHITLEY [facility] Jvuzyi5003 [address] RoadDublin [place] [id number] Globulin mass conc (S) 2.1 g/dL Normal 1.5-4.5 [facility] Work Phone: Comment on above: PATIENT WAS FASTINGP ERFORMED BY: WHITLEY [facility] Kukkxy7075 [address] RoadDuin [place] [id number] Glucose mass conc 96 mg/dL Normal 65-99 Compreh ensive Internal Medicine Work Phone: Comment on above: PATIENT WAS FASTINGP ERFORMED BY: WHITLEY [facility] Eoijdk9566 [address] RoadDublin [place] [id number] Potassium molar conc 3.8 mmol/L Normal 3.5-5.2 Comp rehensive Internal Medicine Work Phone: Comment on above: PATIENT WAS FASTINGP ERFORMED BY: [facility] Leusfl1814 [address] RoadDublin [place] [id number] Protein mass conc 6.5 g/dL Normal 6.0-8.5 Compreh ensive Internal Medicine Work Phone: Comment on above: PATIENT WAS FASTINGP ERFORMED BY: [facility] Ayeuwr4087 [address] RoadDublin [place] [id number] Sodium molar conc 144 mmol/L Normal 134-144 Compreh ensive Internal Medicine Work Phone: Comment on above: PATIENT WAS FASTINGP ERFORMED BY: [facility] Qujspz5442 [address] RoadDublin [place] [id number] Urea nitrogen mass conc 13 mg/dL Normal 8-27 [facility] Work Phone: Comment on above: PATIENT WAS FASTINGP ERFORMED BY: WHITLEY LabErika ParrishTmvqxw9980 [address] RoadDublin [place] [id number] Urea nitrogen/Creatinine mass ratio 22 mg/mg Normal 04-08 [facility] Work Phone: Comment on above: PATIENT WAS FASTINGP ERFORMED BY: WHITLEY LabErika ParrishDiwsxq9495 [address] RoadDublin [place] [id number] URINALYSIS ([id number])Ordered By : Photography Professor on 05-25-2018 Appearance Nom (U) Clear Normal Compre hensive Internal Medicine Work Phone: Comment on above: PATIENT WAS FASTINGP ERFORMED BY: WHITLEY Parrishlin6370 [address]Dublin [place] [id number] Bilirubin Ql (U) Negative Normal Comprehe nsive Internal Medicine Work Phone: Comment on above: PATIENT WAS FASTINGP ERFORMED BY: WHITLEY Parrishlin6370 [address]Dublin [place] [id number] Bilirubin Ql (U) Negative Normal Comprehe nsive Internal Medicine; [facility] Work Phone: Comment on above: PATIENT WAS FASTINGP ERFORMED BY: WHITLEY Parrishlin6370 [address]Dublin [place] [id number] Color Nom (U) Yellow Normal Comprehensi ve Internal Medicine Work Phone: Comment on above: PATIENT WAS FASTINGP ERFORMED BY: WHITLEY Parrishlin6370 [address]Dublin [place] [id number] Glucose Ql (U) Negative Normal Comprehens rubi Internal Medicine Work Phone: Comment on above: PATIENT WAS FASTINGP ERFORMED BY: WHITLEY LabErika ParrishHenluq7800 [address]Dublin [place] [id number] Glucose Ql (U) Negative Normal Comprehens rubi Internal Medicine; [facility] Work Phone: Comment on above: PATIENT WAS FASTINGP ERFORMED BY: WHITLEY LabErika ParrishSgpkoo4523 [address] RoadDublin [place] [id number] Hemoglobin Ql (U) Negative Normal Compreh ensive Internal Medicine Work Phone: Comment on above: PATIENT WAS FASTINGP ERFORMED BY: WHITLEY [facility] Wyqrff4634 [address] RoadDublin [place] [id number] Hemoglobin Ql (U) Negative Normal Compreh ensive Internal Medicine; [facility] Work Phone: Comment on above: PATIENT WAS FASTINGP ERFORMED BY: WHITLEY LabErika ParrishLpgxnm8509 [address] RoadDublin [place] [id number] Ketones Ql (U) Trace Abnormal Comprehens rubi Internal Medicine Work Phone: Comment on above: PATIENT WAS FASTINGP ERFORMED BY: WHITLEY [facility] Fqemgw7942 [address] RoadDublin [place] [id number] Leukocyte esterase Test strip Ql (U) Negative Normal [facility] Work Phone: Comment on above: PATIENT WAS FASTINGP ERFORMED BY: WHITLEY LabErika ParrishHfsuek8963 [address] RoadDublin [place] [id number] Leukocyte esterase Test strip Ql (U) Negative Normal [facility]; [facility] Work Phone: Comment on above: PATIENT WAS FASTINGP ERFORMED BY: WHITLEY LabCokarli ParrishTgwbhm1718 [address]Dublin [place] [id number] Microscopic observation LM Nom (Urine sed) MICNIP Normal [facility] Work Phone: Comment on above: Microscopic not gerda cated and not performed. PATIENT WAS FASTINGP ERFORMED BY: WHITLEY Parrishlin6370 Dodson RoadDublin [place] [id number] Nitrite Ql (U) Negative Normal Comprehens rubi Internal Medicine Work Phone: Comment on above: PATIENT WAS FASTINGP ERFORMED BY: WHITLEY [facility] Ejdwje5857 [address]son RoadDublin [place] [id number] Nitrite Ql (U) Negative Normal Comprehens rubi [facility]; [facility] Work Phone: Comment on above: PATIENT WAS FASTINGP ERFORMED BY: WHITLEY LabHelenrp Lvxxlw4484 Dodson RoadDublin [place] [id number] pH (U) 6.5 [pH] Normal 5.0-7.5 [facility] Work Phone: Comment on above: PATIENT WAS FASTINGP ERFORMED BY: CB [facility] Dmptoe0064 Dodson RoadDublin [place] [id number] Protein Ql (U) Negative Normal Comprehens rubi Internal Medicine Work Phone: Comment on above: PATIENT WAS FASTINGP ERFORMED BY: CB [facility] Oaxnwc0384 [address]son RoadDublin [place] [id number] Protein Ql (U) Negative Normal Comprehens rubi [facility]; [facility] Work Phone: Comment on above: PATIENT WAS FASTINGP ERFORMED BY: CB [facility] Nmmlvd6227 Dodson RoadDublin [place] [id number] Specific gravity Relative Density (U) 1.013 1 Normal 1.005-1.030 Comprehensi ve Internal Medicine Work Phone: Comment on above: PATIENT WAS FASTINGP ERFORMED BY: CB [facility] Vpytwq0303 Dodson RoadDublin [place] [id number] Urobilinogen (U) [Mass/Vol] 0.2 mg/dL Normal 0.2-1.0 [facility]; [facility] Work Phone: Comment on above: PATIENT WAS FASTINGP ERFORMED BY: CB [facility] Johrbv2609 Dodson RoadDublin [place] [id number] Urobilinogen Test strip mass conc (U) 0.2 mg/dL Normal 0.2-1.0 Comprehensiv e Internal Medicine Work Phone: Comment on above: PATIENT WAS FASTINGP ERFORMED BY: CB [facility] Fspvji7097 Dodson RoadDublin [place] [id number] Basic Metabolic Profile (BMP )Ordered By: Photography Professor on 03-08-2018 Basic metabolic 2000 panel 100 mL/min Normal [facility] Work Phone: Comment on above: Non- GFR Calc [facility] [address]ou[address] [facility] [place], [place], [id number] Basic metabolic 2000 panel 0.64 mg/dL Normal 0.55-1.02 [facility] Work Phone: Comment on above: The validity of the calculated GFR AND GFRAA in patients over70 years has not been determined. Clinical correlation isessential. [facility] [address] [place], [address] Basic metabolic 2000 panel 6 1 Normal 5-15 [facility] Work Phone: Comment on above: [facility] [address] [place], [address] Basic metabolic 2000 panel 103 mmol/L Normal 98-107 [facility] Work Phone: Comment on above: [facility] [address] [place], [address] Basic metabolic 2000 panel 18 mg/dL Normal 7-18 [facility] Work Phone: Comment on above: [facility] [address] [place], [address] Basic metabolic 2000 panel 98 mg/dL Normal 74-106 [facility] Work Phone: Comment on above: Please note revised GLUCOSE reference range kexdarjdc02/02/2018. [facility] [address] [place], [place], [address] Basic metabolic 2000 panel 3.6 mmol/L Normal 3.5-5.1 [facility] Work Phone: Comment on above: [facility] [address] [place], [address] Basic metabolic 2000 panel 139 mmol/L Normal 136-145 [facility] Work Phone: Comment on above: [facility] [address] [place], [address] Basic metabolic 2000 panel 8.8 mg/dL Normal 8.5-10.1 [facility] Work Phone: Comment on above: [facility] [address]kw[address] [place], [address] Basic metabolic 2000 panel 28.0 {RATIO} Abnormal 10-20 [facility] Work Phone: Comment on above: [facility] [address] [place], [place], [id number] Basic metabolic 2000 panel 80.72 ml/min Normal [facility] Work Phone: Comment on above: [facility] [address] [place], [place], [id number] Basic metabolic 2000 panel 121 mL/min Normal [facility] Work Phone: Comment on above: GFR Calc [facility] [address] [place], [address] Basic metabolic 2000 panel 30.0 mmol/L Normal 21.0-32.0 [facility] Work Phone: Comment on above: [facility] [address] [place], [place], [id number] CBC W/Diff, AutomatedOrdered By: Photography Professor on 03-08-2018 Absolute Neut 2.9 {X10_3/uL} Normal 2.0-7.7 Compreh ensive Internal Medicine Work Phone: Comment on above: [facility] [address] [place], [address] Basophils/100 WBC (Bld) 0.4 % Normal 0-1 [facility] Work Phone: Comment on above: [facility] [address] [place], [address] Eosinophils/100 WBC (Bld) 1.8 % Normal 0-5 [facility] Work Phone: Comment on above: [facility] [address] [place], [place], [phone] Erythrocyte distribution width Ratio (RBC) 13.4 % Normal 11.6-14.6 [facility] Work Phone: Comment on above: [facility] [address] [place], [address] Hematocrit Volume Fraction (Bld) 41.8 % Normal 37-47 [facility] Work Phone: Comment on above: [facility] [address] [place], [address] Hemoglobin mass conc (Bld) 13.5 g/dL Normal 12.0-15.0 [facility] Work Phone: Comment on above: [facility] [address] [place], [place], [id number] IM GRAN % 0.200 % Normal 0.0-0.9 [facility] Work Phone: Comment on above: IG% - Immature Granu locytes (promyelocytes, myelocytes andmetamyelocytes) > 1% indicates that a LEFT SHIFT is Present. [facility] [address] [place], [address] Lymphocytes #/vol (Bld) 1.97 {X10_3/ul} Normal 0.83-4.51 [facility] Work Phone: Comment on above: [facility] [address] [place], [address] Lymphocytes/100 WBC (Bld) 35.7 % Normal 19-41 [facility] Work Phone: Comment on above: [facility] [address] [place], [address] MCH Entitic mass (RBC) 28.0 pg Normal 27.0-32.0 [facility] Work Phone: Comment on above: [facility] [address] [place], [address] MCHC mass conc (RBC) 32.3 {g/gl} Normal 32-36 Com prehensive Internal Medicine Work Phone: Comment on above: [facility] [address] [place], [address] MCV Entitic volume (RBC) 86.7 fL Normal 81-99 [facility] Work Phone: Comment on above: [facility] [address] [place], [address] Monocytes/100 WBC (Bld) 9.8 % Normal 0-10 [facility] Work Phone: Comment on above: [facility] [address]ogs[address] [place], [address] Neutrophils/100 WBC (Bld) 52.1 % Normal 47-70 [facility] Work Phone: Comment on above: [facility] [address] [place], [address] Platelet mean volume Entitic volume (Bld) 10.7 fL Normal 6.2-12.0 Comprehensi Internal Medicine Work Phone: Comment on above: [facility] [address] [place], [address] Platelets #/vol (Bld) 196 10*3/uL Normal 150-450 [facility] Work Phone: Comment on above: [facility] [address] [place], [address] RBC #/vol (Bld) 4.82 {M/mm3} Normal 4.2-5.4 Compreh ensive Internal Medicine Work Phone: Comment on above: [facility] [address] [place], [address] RDW SD 41.9 fL Normal 35.1-43.9 [facility] Work Phone: Comment on above: [facility] [address] [place], [address] WBC #/vol (Bld) 5.5 10*3/uL Normal 4.4-11.0 Comprehe nsive Internal Medicine Work Phone: Comment on above: [facility] [address] [place], [address] D-Dimer Quantitative (DVT/PE )Ordered By: Photography Professor on 03-08-2018 D-Dimer Quantitative (DVT/PE) < 0.27 Abnormal 0.27-0.49 [facility] Work Phone: Comment on above: NORMAL D-Dimer level (<0.50) indicates no DVT or PE. [facility] [address] [place], [address] Troponin-IOrdered By: Photography Professor on 03-08-2018 Troponin I.cardiac mass conc 0.322 ng/mL Abnormal [facility] Work Phone: Comment on above: TROPONIN-I EXPECTED VALUES <0.045 Negative 0.045 - 0.590 Consistent with Cardiac Damage > OR = 0.600 Critical Value Not every elevated troponin is indicative of CA. Thesevalues should be used with clinical judgement in examiningthe patient's clinical picture for diagnosis. To establisha diagnosis of CA versus myocardial injury, there must be ademonstrated rise and/or fall in the troponin values, inaddition to ischemic symptoms, EKG changes, new regionalwall motion abnormality, and/or angiographical evidence. PLEASE NOTE: REFERENCE RANGES EDITED 17 [facility] [address] [place], [place], [address] Amylase (77906)Ordered By: S ystem Client Care Specialist on 02-03-2018 Amylase enzyme act/vol 74 U/L Normal 25-115 [facility] Work Phone: Comment on above: [facility] [address] [place], [place], [phone] CBC W/Diff, AutomatedOrdered By: Photography Professor on 02-03-2018 Absolute Neut 6.9 {X10_3/uL} Normal 2.0-7.7 Compreh ensive Internal Medicine Work Phone: Comment on above: [facility] [address] [place], [address] Basophils/100 WBC (Bld) 0.1 % Normal 0-1 [facility] Work Phone: Comment on above: [facility] [address] [place], [address] Eosinophils/100 WBC (Bld) 0.1 % Normal 0-5 [facility] Work Phone: Comment on above: [facility] [address] [place], [place], [address] Erythrocyte distribution width Ratio (RBC) 13.1 % Normal 11.6-14.6 [facility] Work Phone: Comment on above: [facility] [address] [place], [place], [id number] Hematocrit Volume Fraction (Bld) 39.7 % Normal 37-47 [facility] Work Phone: Comment on above: [facility] [address] [place], [address] Hemoglobin mass conc (Bld) 12.5 g/dL Normal 12.0-15.0 [facility] Work Phone: Comment on above: [facility] [address] [place], [address] IM GRAN % 0.000 % Normal 0.0-0.9 [facility] Work Phone: Comment on above: IG% - Immature Granu locytes (promyelocytes, myelocytes andmetamyelocytes) > 1% indicates that a LEFT SHIFT is Present. [facility] [address] [place], [address] Lymphocytes #/vol (Bld) 0.66 {X10_3/ul} Abnormal 0.83-4.51 [facility] Work Phone: Comment on above: [facility] [address] [place], [address] Lymphocytes/100 WBC (Bld) 7.8 % Abnormal 19-41 [facility] Work Phone: Comment on above: [facility] [address] [place], [address] MCH Entitic mass (RBC) 27.5 pg Normal 27.0-32.0 [facility] Work Phone: Comment on above: [facility] [address] [place], [address] MCHC mass conc (RBC) 31.5 {g/gl} Abnormal 32-36 [facility] Work Phone: Comment on above: [facility] [address] [place], [address] MCV Entitic volume (RBC) 87.3 fL Normal 81-99 [facility] Work Phone: Comment on above: [facility] [address] [place], [address] Monocytes/100 WBC (Bld) 10.8 % Abnormal 0-10 [facility] Work Phone: Comment on above: [facility] [address] [place], [address] Neutrophils/100 WBC (Bld) 81.2 % Abnormal 47-70 [facility] Work Phone: Comment on above: [facility] [address] [place], [address] Platelet mean volume Entitic volume (Bld) 10.8 fL Normal 6.2-12.0 Comprehensi Internal Medicine Work Phone: Comment on above: [facility] [address] [place], [address] Platelets #/vol (Bld) 171 10*3/uL Normal 150-450 [facility] Work Phone: Comment on above: [facility] [address] [place], [address] RBC #/vol (Bld) 4.55 {M/mm3} Normal 4.2-5.4 Compreh ensive Internal Medicine Work Phone: Comment on above: [facility] [address] [place], [address] RDW SD 41.9 fL Normal 35.1-43.9 [facility] Work Phone: Comment on above: [facility] Xr[address]anyl[address] [place], [address] WBC #/vol (Bld) 8.5 10*3/uL Normal 4.4-11.0 Comprehe nsive Internal Medicine Work Phone: Comment on above: [facility] [address] [place], [place], [address] Lipase ([id number])Ordered By: Sy stem Client Care Specialist on 02-03-2018 Lipase enzyme act/vol 77 U/L Normal 73-393 [facility] Work Phone: Comment on above: [facility] [address] [place], [address] Urinalysis, Office ([id number])Or dered By: Malka Martinez on 02-03-2018 Bilirubin Ql (U) Negative Normal Comprehe nsive Internal Medicine Work Phone: Bilirubin Ql (U) Negative Normal Comprehe nsive Internal Medicine; [facility] Work Phone: Glucose Test strip (U) [Mass/Vol] Negative Normal [facility]; [facility] Work Phone: Glucose Test strip mass conc (U) Negative Normal [facility] Work Phone: Hemoglobin Ql (U) Negative Normal Compreh ensive Internal Medicine Work Phone: Hemoglobin Ql (U) Negative Normal Compreh ensive Internal Medicine; [facility] Work Phone: Hemoglobin Test strip Ql (U) Negative Normal [facility] Work Phone: Ketones Ql (U) Negative Normal Comprehens rubi Internal Medicine Work Phone: Ketones Ql (U) Negative Normal Comprehens rubi Internal Medicine; [facility] Work Phone: Leukocyte esterase Test strip Ql (U) Negative Normal [facility] Work Phone: Leukocyte esterase Test strip Ql (U) Negative Normal [facility]; [facility] Work Phone: Nitrite Ql (U) Negative Normal Comprehens rubi Internal Medicine Work Phone: Nitrite Ql (U) Negative Normal Comprehens rubi [facility] Medicine; [facility] Work Phone: Nitrite Test strip Ql (U) Negative Normal [facility] Work Phone: pH (U) 6.5 [pH] Normal [facility] Work Phone: pH Test strip (U) 6.5 [pH] Normal Compreh ensive Internal Medicine Work Phone: Protein Ql (U) Negative Normal Comprehens rubi Internal Medicine Work Phone: Protein Ql (U) Negative Normal Comprehens rubi [facility]; [facility] Work Phone: Protein Test strip Ql (U) Negative Normal [facility] Work Phone: Specific gravity Relative Density (U) 1.005 1 Normal Comprehensi ve Internal Medicine Work Phone: Urobilinogen mass/time (24H U) 2 mg/dL Normal [facility] Work Phone: LIPOPROTEIN, BLD, BY NMR ([id number] [id number])Ordered By: Photography Professor on 02-02-2018 Cholesterol in HDL mass conc 60 mg/dL Normal [facility] Work Phone: Comment on above: PATIENT WAS FASTINGP ERFORMED BY: [facility] Phwsycbpnl6689 [facility] [id number] Cholesterol in LDL mass conc 112 mg/dL Abnormal 0-99 [facility] Work Phone: Comment on above: . Optimal < 100 Abov e optimal 100 - 129 Borderline 130 - 159 High 160 - 189 Very high > 189 .LDL-C is inaccurate if patient is non-fasting. PATIENT WAS FASTINGP ERFORMED BY: [employer] [id number] Cholesterol mass conc 182 mg/dL Normal 100-199 [facility] Work Phone: Comment on above: PATIENT WAS FASTINGP ERFORMED BY: [employer] [id number] Lipoprotein.alpha molar conc 36.5 umol/L Normal [facility] Work Phone: Comment on above: PATIENT WAS FASTINGP ERFORMED BY: [employer] [id number] Lipoprotein.beta.sub particle Entitic length 21.1 nm Normal [facility] Work Phone: Comment on above: INTERPRETATIVE INFORMATION PARTICLE CONCENTRATION AND SIZE <--Lower CVD Risk Higher CVD Risk--> LDL AND HDL PARTICLES Percentile [...] were developed and their performance characteristicsdetermined by [employer]. These assays have not been cleared by Rita Food and Drug Administration. The clinical utility of theselaboratory values have not been fully established. PATIENT WAS FASTINGP ERFORMED BY: [employer] [id number] Lipoprotein.beta.sub particle molar conc 1006 nmol/L Abnormal Comprehensiv e Internal Medicine Work Phone: Comment on above: Low < 1000 Moderate 1000 - 1299 Borderline-High 1300 - 1599 High 1600 - 2000 Very High > 2000 PATIENT WAS FASTINGP ERFORMED BY: [facility] [id number] Lipoprotein.beta.sub particle.small molar conc 251 nmol/L Normal [facility] Work Phone: Comment on above: PATIENT WAS FASTINGP ERFORMED BY: [employer] [id number] Triglyceride mass conc 48 mg/dL Normal 0-149 [facility] Work Phone: Comment on above: PATIENT WAS FASTINGP ERFORMED BY: [employer] [id number] METABOLIC PANEL, COMPREHENSI VE ([id number])Ordered By: Photography Professor on 02-02-2018 Albumin mass conc 4.2 g/dL Normal 3.6-4.8 Compreh ensive Internal Medicine Work Phone: Comment on above: PATIENT WAS FASTINGP ERFORMED BY: LabResponsible CityAtlantiCare [facility] Center[facility] Main[facility] CampusCskwxm4312 [facility] [id number] Albumin/Globulin mass ratio 1.6 {ratio} Normal 1.2-2.2 [facility] Work Phone: Comment on above: PATIENT WAS FASTINGP ERFORMED BY: [facility] Zwwqcf0740 [facility] [id number] ALP [Catalytic activity/Vol] 97 U/L Normal 39-117 [facility]; [facility] Work Phone: Comment on above: PATIENT WAS FASTINGP ERFORMED BY: LabCoAtlantiCare Regional [facility] Center[facility] Main[facility] CampusWquado8355 [facility] [id number] ALP enzyme act/vol 97 [iU]/L Normal 39-117 [facility] Internal Medicine Work Phone: Comment on above: PATIENT WAS FASTINGP ERFORMED BY: CB [facility] Pqlyuy8130 Dodson RoadDublin [place] [id number] ALT [Catalytic activity/Vol] 15 U/L Normal 0-32 [facility] Internal Medicine; [facility] Internal Medicine Work Phone: Comment on above: PATIENT WAS FASTINGP ERFORMED BY: CB [facility] Rsheda1824 Dodson RoadDublin [place] [id number] ALT enzyme act/vol 15 [iU]/L Normal 0-32 [facility] Internal Medicine Work Phone: Comment on above: PATIENT WAS FASTINGP ERFORMED BY: CB [facility] Yizgko4066 Dodson RoadDublin [place] [id number] AST [Catalytic activity/Vol] 17 U/L Normal 0-40 [facility] Internal Medicine; [facility] Internal Medicine Work Phone: Comment on above: PATIENT WAS FASTINGP ERFORMED BY: [facility] Qlvwmj2051 Dodson RoadDublin [place] [id number] AST enzyme act/vol 17 [iU]/L Normal 0-40 [facility] Internal Medicine Work Phone: Comment on above: PATIENT WAS FASTINGP ERFORMED BY: [facility] Ftmbro8318 Dod[address] RoadDublin [place] [id number] Bilirubin mass conc 0.6 mg/dL Normal 0.0-1.2 [facility] Internal Medicine Work Phone: Comment on above: PATIENT WAS FASTINGP ERFORMED BY: [facility] Bjuzdc3359 Dodson RoadDublin [place] [id number] Calcium mass conc 9.3 mg/dL Normal 8.7-10.3 [facility] Internal Medicine Work Phone: Comment on above: PATIENT WAS FASTINGP ERFORMED BY: [facility] Jxhsfy5222 Dod[address] RoadDublin [place] [id number] Chloride molar conc 100 mmol/L Normal 96-106 [facility] Internal Medicine Work Phone: Comment on above: PATIENT WAS FASTINGP ERFORMED BY: WHITLEY [facility] Fljglw[address] [facility]blin [place] [id number] CO2 molar conc 25 mmol/L Normal 20-29 Comprehens rubi Internal Medicine Work Phone: Comment on above: PATIENT WAS FASTINGP ERFORMED BY: WHITLEY [facility] Xwofoj0568 Dodson RoadPerson Memorial Hospitalin [place] [id number] Creatinine mass conc 0.58 mg/dL Normal 0.57-1.00 Comp rehensive Internal Medicine Work Phone: Comment on above: PATIENT WAS FASTINGP ERFORMED BY: WHITLEY [facility] Mguoyu[address] [facility]in [place] [id number] GFR/1.73 sq M predicted among blacks CKD-EPI vol rate/area (S/P/Bld) 116 mL/min/1.73 Normal Comprehensiv e Internal Medicine Work Phone: Comment on above: PATIENT WAS FASTINGP ERFORMED BY: WHITLEY LabMercy Hospital St. LouisIbbcnl[address] [facility] [id number] GFR/1.73 sq M predicted among non-blacks CKD-EPI vol rate/area (S/P/Bld) 101 mL/min/1.73 Normal [facility] Work Phone: Comment on above: PATIENT WAS FASTINGP ERFORMED BY: WHITLEY [facility] Ruzkeg6510 [facility] [id number] Globulin Calculated mass conc (S) 2.6 g/dL Normal 1.5-4.5 [facility] Work Phone: Globulin mass conc (S) 2.6 g/dL Normal 1.5-4.5 [facility] Work Phone: Comment on above: PATIENT WAS FASTINGP ERFORMED BY: WHITLEY [facility] Lhuhuo[address] [facility]in [place] [id number] Glucose mass conc 86 mg/dL Normal 65-99 Compreh ensive Internal Medicine Work Phone: Comment on above: PATIENT WAS FASTINGP ERFORMED BY: WHITLEY [facility] Qwaosv8598 [address] [facility]in [place] [id number] Potassium molar conc 4.0 mmol/L Normal 3.5-5.2 Comp rehensive Internal Medicine Work Phone: Comment on above: PATIENT WAS FASTINGP ERFORMED BY: WHITLEY Norma Cota6370 [facility] [id number] Protein mass conc 6.8 g/dL Normal 6.0-8.5 Compreh ensive Internal Medicine Work Phone: Comment on above: PATIENT WAS FASTINGP ERFORMED BY: WHITLEY Norma Cota6370 [facility] [id number] Sodium molar conc 141 mmol/L Normal 134-144 Compreh ensive Internal Medicine Work Phone: Comment on above: PATIENT WAS FASTINGP ERFORMED BY: WHITLEY Michakarli Xsdaoj1610 [facility] [id number] Urea nitrogen mass conc 15 mg/dL Normal 8-27 [facility] Work Phone: Comment on above: PATIENT WAS FASTINGP ERFORMED BY: WHITLEY Norma Parrishlin6370 [facility] [id number] Urea nitrogen/Creatinine mass ratio 26 mg/mg Normal 12-28 [facility] Work Phone: Comment on above: PATIENT WAS FASTINGP ERFORMED BY: WHITLEY Michakarli Oeholg8622 [facility] [id number] CBC WITH MANUAL DIFF ([id number]) Ordered By: Photography Professor on 05-04-2017 Basophils #/vol (Bld) 0.0 {x10E3/uL} Normal 0.0-0.2 [facility] Work Phone: Comment on above: PATIENT NOT FASTINGP ERFORMED BY: WHITLEY [facility] Dtrmaf[address] [id number] Information: NURSE DRAW Basophils (Bld) [#/Vol] 0.0 10*3/uL Normal 0.0-0.2 [facility]; [facility] Work Phone: Comment on above: PATIENT NOT FASTINGP ERFORMED BY: WHITLEY Parrish[address] [id number] Information: NURSE DRAW Basophils Auto #/vol (Bld) 0.0 {x10E3/uL} Normal 0.0-0.2 [facility] Work Phone: Basophils/100 WBC (Bld) 1 % Normal [facility] Work Phone: Comment on above: PATIENT NOT FASTINGP ERFORMED BY: [place] [id number] [facility] [id number] Information: NURSE DRAW Basophils/100 WBC Auto (Bld) 1 % Normal [facility] Work Phone: Eosinophils #/vol (Bld) 0.0 {x10E3/uL} Normal 0.0-0.4 [facility] Work Phone: Comment on above: PATIENT NOT FASTINGP ERFORMED BY: WHITLEY [address] [id number] Information: NURSE DRAW Eosinophils (Bld) [#/Vol] 0.0 10*3/uL Normal 0.0-0.4 [facility]; [facility] Work Phone: Comment on above: PATIENT NOT FASTINGP ERFORMED BY: [address] [id number] Information: NURSE DRAW Eosinophils Auto #/vol (Bld) 0.0 {x10E3/uL} Normal 0.0-0.4 [facility] Work Phone: Eosinophils/100 WBC (Bld) 1 % Normal [facility] Work Phone: Comment on above: PATIENT NOT FASTINGP ERFORMED BY: [address] [id number] Information: NURSE DRAW Eosinophils/100 WBC Auto (Bld) 1 % Normal [facility] Work Phone: Erythrocyte distribution width Auto Ratio (RBC) 14.1 % Normal 12.3-15.4 [facility] Work Phone: Erythrocyte distribution width Ratio (RBC) 14.1 % Normal 12.3-15.4 [facility] Work Phone: Comment on above: PATIENT NOT FASTINGP ERFORMED BY: WHITLEY KellyMichelle Ville [id number] [facility] [id number] Information: NURSE DRAW Hematocrit Auto Volume Fraction (Bld) 39.0 % Normal 34.0-46.6 [facility] Work Phone: Hematocrit Volume Fraction (Bld) 39.0 % Normal 34.0-46.6 [facility] Work Phone: Comment on above: PATIENT NOT FASTINGP ERFORMED BY: WHITLEY Kelly[address] [id number] Information: NURSE DRAW Hemoglobin mass conc (Bld) 12.7 g/dL Normal 11.1-15.9 [facility] Work Phone: Comment on above: PATIENT NOT FASTINGP ERFORMED BY: [address] [id number] Information: NURSE DRAW Immature granulocytes #/vol (Bld) 0.0 {x10E3/uL} Normal 0.0-0.1 [facility] Work Phone: Comment on above: PATIENT NOT FASTINGP ERFORMED BY: WHITLEY Muse[address] [id number] Information: NURSE DRAW Immature granulocytes (Bld) [#/Vol] 0.0 10*3/uL Normal 0.0-0.1 [facility]; [facility] Work Phone: Comment on above: PATIENT NOT FASTINGP ERFORMED BY: Robin[address] [id number] Information: NURSE DRAW Immature granulocytes/100 WBC (Bld) 0 % Normal [facility] Work Phone: Comment on above: PATIENT NOT FASTINGP ERFORMED BY: WHITLEY Kelly[address] [id number] Information: NURSE DRAW Lymphocytes #/vol (Bld) 1.0 {x10E3/uL} Normal 0.7-3.1 [facility] Work Phone: Comment on above: PATIENT NOT FASTINGP ERFORMED BY: WHITLEY [facility] HospitalErika ParrishZmspsz3562 [facility] [id number] Information: NURSE DRAW Lymphocytes (Bld) [#/Vol] 1.0 10*3/uL Normal 0.7-3.1 [facility]; [facility] Work Phone: Comment on above: PATIENT NOT FASTINGP ERFORMED BY: WHITLEY Parrish[address] [id number] Information: NURSE DRAW Lymphocytes Auto #/vol (Bld) 1.0 {x10E3/uL} Normal 0.7-3.1 [facility] Work Phone: Lymphocytes/100 WBC (Bld) 32 % Normal [facility] Work Phone: Comment on above: PATIENT NOT FASTINGP ERFORMED BY: WHITLEY Parrish[address] [id number] Information: NURSE DRAW Lymphocytes/100 WBC Auto (Bld) 32 % Normal [facility] Work Phone: MCH Auto Entitic mass (RBC) 27.9 pg Normal 26.6-33.0 [facility] Work Phone: MCH Entitic mass (RBC) 27.9 pg Normal 26.6-33.0 [facility] Work Phone: Comment on above: PATIENT NOT FASTINGP ERFORMED BY: WHITLEY Parrish[address] [id number] Information: NURSE DRAW MCHC Auto mass conc (RBC) 32.6 g/dL Normal 31.5-35.7 [facility] Work Phone: MCHC mass conc (RBC) 32.6 g/dL Normal 31.5-35.7 [facility] Work Phone: Comment on above: PATIENT NOT FASTINGP ERFORMED BY: WHITLEY Green [address] [id number] Information: NURSE DRAW MCV Auto Entitic volume (RBC) 86 fL Normal 79-97 [facility] Work Phone: MCV Entitic volume (RBC) 86 fL Normal 79-97 [facility] Work Phone: Comment on above: PATIENT NOT FASTINGP ERFORMED BY: WHITLEY Norma Parrishlin6370 [facility] [id number] Information: NURSE DRAW Monocytes #/vol (Bld) 0.2 {x10E3/uL} Normal 0.1-0.9 [facility] Work Phone: Comment on above: PATIENT NOT FASTINGP ERFORMED BY: WHITLEY [address] [id number] Information: NURSE DRAW Monocytes (Bld) [#/Vol] 0.2 10*3/uL Normal 0.1-0.9 [facility]; [facility] Work Phone: Comment on above: PATIENT NOT FASTINGP ERFORMED BY: WHITLEY Parrish[address] [id number] Information: NURSE DRAW Monocytes Auto #/vol (Bld) 0.2 {x10E3/uL} Normal 0.1-0.9 [facility] Work Phone: Monocytes/100 WBC (Bld) 8 % Normal [facility] Work Phone: Comment on above: PATIENT NOT FASTINGP ERFORMED BY: WHITLEY [address] [id number] Information: NURSE DRAW Monocytes/100 WBC Auto (Bld) 8 % Normal [facility] Work Phone: Neutrophils #/vol (Bld) 1.9 {x10E3/uL} Normal 1.4-7.0 [facility] Work Phone: Comment on above: PATIENT NOT FASTINGP ERFORMED BY: WHITLEY [address] [id number] Information: NURSE DRAW Neutrophils (Bld) [#/Vol] 1.9 10*3/uL Normal 1.4-7.0 [facility]; [facility] Work Phone: Comment on above: PATIENT NOT FASTINGP ERFORMED BY: WHITLEY Parrishlin6370 [facility] [id number] Information: NURSE DRAW Neutrophils Auto #/vol (Bld) 1.9 {x10E3/uL} Normal 1.4-7.0 [facility] Work Phone: Neutrophils/100 WBC (Bld) 58 % Normal [facility] Work Phone: Comment on above: PATIENT NOT FASTINGP ERFORMED BY: WHITLEY Muse Rucplt7038 [facility] [id number] Information: NURSE DRAW Neutrophils/100 WBC Auto (Bld) 58 % Normal [facility] Work Phone: Platelets #/vol (Bld) 191 {x10E3/uL} Normal 150-379 [facility] Work Phone: Comment on above: PATIENT NOT FASTINGP ERFORMED BY: WHITLEY Parrishlin6370 [facility] [id number] Information: NURSE DRAW Platelets (Bld) [#/Vol] 191 10*3/uL Normal 150-379 [facility]; [facility] Work Phone: Comment on above: PATIENT NOT FASTINGP ERFORMED BY: WHITLEY Parrishlin6370 [facility] [id number] Information: NURSE DRAW Platelets Auto #/vol (Bld) 191 {x10E3/uL} Normal 150-379 [facility] Work Phone: RBC #/vol (Bld) 4.56 {x10E6/uL} Normal 3.77-5.28 [facility] Work Phone: Comment on above: PATIENT NOT FASTINGP ERFORMED BY: WHITLEY Muse Zsybgd3038 [facility] [id number] Information: NURSE DRAW RBC (Bld) [#/Vol] 4.56 10*6/uL Normal 3.77-5.28 [facility]; [facility] Work Phone: Comment on above: PATIENT NOT FASTINGP ERFORMED BY: WHITLEY Parrishlin6370 [facility] [id number] Information: NURSE DRAW RBC Auto #/vol (Bld) 4.56 {x10E6/uL} Normal 3.77-5.28 [facility] Work Phone: WBC #/vol (Bld) 3.2 {x10E3/uL} Abnormal 3.4-10.8 Compr [facility] Internal Medicine Work Phone: Comment on above: PATIENT NOT FASTINGP ERFORMED BY: WHITLEY Parrishlin6370 [facility] [id number] Information: NURSE DRAW WBC (Bld) [#/Vol] 3.2 10*3/uL Abnormal 3.4-10.8 Compre [facility]; [facility] Work Phone: Comment on above: PATIENT NOT FASTINGP ERFORMED BY: WHITLEY Parrishlin6370 [facility] [id number] Information: NURSE DRAW WBC Auto #/vol (Bld) 3.2 {x10E3/uL} Abnormal 3.4-10.8 [facility] Work Phone: MICROALBUMINOrdered By: Syst em Client Care Specialist on 05-04-2017 Albumin DL <= 20 mg/L (U) [Mass/Vol] mg/dL Normal Comprehensiv e [facility]; [facility] Work Phone: Comment on above: PATIENT NOT FASTINGP ERFORMED BY: WHITLEY Parrishlin6370 [facility] [id number] Albumin DL <= 20 mg/L mass conc (U) mg/dL Normal [facility] Work Phone: Comment on above: PATIENT NOT FASTINGP ERFORMED BY: WHITLEY Parrishlin6370 [facility] [id number] Albumin/Creatinine mass ratio (U) MALD2 Abnormal 0.0-30.0 [facility] Work Phone: Comment on above: The result is below the assay's limit of quantitation which mayindicate a dilute specimen or other clinical condition. Considerrecollection at a time likely to provide a urine that is moreconcentrated. PATIENT NOT FASTINGP ERFORMED BY: WHITLEY [facility] Vnzjdw8487 [address] RoadDublin [place] [id number] Creatinine mass conc (U) 8.3 mg/dL Normal [facility] Work Phone: Comment on above: PATIENT NOT FASTINGP ERFORMED BY: CB [facility] Qyvrxo1653 [address] RoadDublin [place] [id number] Metabolic Panel, Comprehensi ve ([id number])Ordered By: Photography Professor on 05-04-2017 Albumin mass conc 4.4 g/dL Normal 3.5-5.5 [facility]preh [facility] Work Phone: Comment on above: PATIENT NOT FASTINGP ERFORMED BY: WHITLEY [facility] Eyohbg7226 [address]son RoadDublin [place] [id number] Albumin/Globulin mass ratio 1.8 {ratio} Normal 1.2-2.2 [facility] Work Phone: Comment on above: PATIENT NOT FASTINGP ERFORMED BY: CB [facility] Ponswn3883 [address] RoadDublin [place] [id number] ALP [Catalytic activity/Vol] 80 U/L Normal 39-117 [facility]; [facility] Work Phone: Comment on above: PATIENT NOT FASTINGP ERFORMED BY: [facility] Kjzepd2869 [address]son RoadDublin [place] [id number] ALP enzyme act/vol 80 [iU]/L Normal 39-117 [facility] Work Phone: Comment on above: PATIENT NOT FASTINGP ERFORMED BY: CB [facility] Uadgdp8097 [address] RoadDublin [place] [id number] ALT [Catalytic activity/Vol] 19 U/L Normal 0-32 [facility]; [facility] Work Phone: Comment on above: PATIENT NOT FASTINGP ERFORMED BY: CB [facility] Sgjmso5851 [address] RoadDublin [place] [id number] ALT enzyme act/vol 19 [iU]/L Normal 0-32 [facility] hens[facility] Work Phone: Comment on above: PATIENT NOT FASTINGP ERFORMED BY: WHITLEY [facility] Ytktyr9700 [address] RoadDublin [place] [id number] AST [Catalytic activity/Vol] 21 U/L Normal 0-40 [facility]; [facility] Work Phone: Comment on above: PATIENT NOT FASTINGP ERFORMED BY: CB [facility] Zzestm7338 [address]Dublin [place] [id number] AST enzyme act/vol 21 [iU]/L Normal 0-40 Compre [facility] Internal Medicine Work Phone: Comment on above: PATIENT NOT FASTINGP ERFORMED BY: WHITLEY [facility] Fpgvzp7790 [address] RoadDublin [place] [id number] Bilirubin mass conc 0.5 mg/dL Normal 0.0-1.2 Compr ehensive Internal Medicine Work Phone: Comment on above: PATIENT NOT FASTINGP ERFORMED BY: WHITLEY LabCokarli ParrishGmtvdt3157 [address] RoadDublin [place] [id number] Calcium mass conc 9.1 mg/dL Normal 8.7-10.2 Compreh ensive Internal Medicine Work Phone: Comment on above: PATIENT NOT FASTINGP ERFORMED BY: WHITLEY LabCokarli ParrishNjsrid9992 Dod[address] Roadblin [place] [id number] Chloride molar conc 103 mmol/L Normal 96-106 Compr ehensive Internal Medicine Work Phone: Comment on above: PATIENT NOT FASTINGP ERFORMED BY: WHITLEY [facility] Pcqwnn6161 [address]Dublin [place] [id number] CO2 molar conc 24 mmol/L Normal 18-29 Comprehens rubi Internal Medicine Work Phone: Comment on above: PATIENT NOT FASTINGP ERFORMED BY: WHITLEY [facility] Yvqnjp7890 [address] RoadDublin [place] [id number] Creatinine mass conc 0.58 mg/dL Normal 0.57-1.00 Comp rehensive Internal Medicine Work Phone: Comment on above: PATIENT NOT FASTINGP ERFORMED BY: WHITLEY [facility] Fkmysu2955 [address] RoadDublin [place] [id number] GFR/1.73 sq M predicted among blacks CKD-EPI vol rate/area (S/P/Bld) 117 mL/min/1.73 Normal Comprehensiv e [facility] Medicine Work Phone: Comment on above: PATIENT NOT FASTINGP ERFORMED BY: WHITLEY [facility] Pgwrnb[address] [facility]in [place] [id number] GFR/1.73 sq M predicted among non-blacks CKD-EPI vol rate/area (S/P/Bld) 101 mL/min/1.73 Normal [facility] Work Phone: Comment on above: PATIENT NOT FASTINGP ERFORMED BY: [facility] Ehbvqn[address] [facility] [id number] Globulin Calculated mass conc (S) 2.4 g/dL Normal 1.5-4.5 [facility] Work Phone: Globulin mass conc (S) 2.4 g/dL Normal 1.5-4.5 [facility] Work Phone: Comment on above: PATIENT NOT FASTINGP ERFORMED BY: [facility] Mcfvqp7616 [facility] [place] [id number] Glucose mass conc 88 mg/dL Normal 65-99 Compreh ensive Internal Medicine Work Phone: Comment on above: PATIENT NOT FASTINGP ERFORMED BY: [facility] Uzgwcd5386 [facility] [id number] Potassium molar conc 3.8 mmol/L Normal 3.5-5.2 Comp rehensive Internal Medicine Work Phone: Comment on above: PATIENT NOT FASTINGP ERFORMED BY: [facility] Icevwt[address] [facility]in [place] [id number] Protein mass conc 6.8 g/dL Normal 6.0-8.5 Compreh ensive [facility] Medicine Work Phone: Comment on above: PATIENT NOT FASTINGP ERFORMED BY: [facility] Jtvzwm[address] [facility] [id number] Sodium molar conc 144 mmol/L Normal 134-144 Compreh ensive [facility] Medicine Work Phone: Comment on above: PATIENT NOT FASTINGP ERFORMED BY: WHITLEY [facility] Zyqkug2129 [address] RoadDublin [place] [id number] Urea nitrogen mass conc 18 mg/dL Normal 6-24 [facility] Work Phone: Comment on above: PATIENT NOT FASTINGP ERFORMED BY: WHITLEY [facility] Vduzbd0722 [address] RoadDublin [place] [id number] Urea nitrogen/Creatinine mass ratio 31 mg/mg Abnormal - [facility] Work Phone: Comment on above: PATIENT NOT FASTINGP ERFORMED BY: WHITLEY [facility] Nurfcj0411 [address] RoadDublin [place] [id number] URINALYSIS ([id number])Ordered By : Photography Professor on 05-04-2017 Appearance Nom (U) Clear Normal Compre hensive [facility] Medicine Work Phone: Comment on above: PATIENT NOT FASTINGP ERFORMED BY: WHITLEY [facility] Hkzfqr3747 [address] RoadDublin [place] [id number] Bilirubin Ql (U) Negative Normal Comprehe nsive Internal Medicine Work Phone: Comment on above: PATIENT NOT FASTINGP ERFORMED BY: WHITLEY [facility] Bjaxmf4903 [address]Dublin [place] [id number] Bilirubin Ql (U) Negative Normal Comprehe nsive [facility] Medicine; [facility] Work Phone: Comment on above: PATIENT NOT FASTINGP ERFORMED BY: WHITLEY [facility] Jevttt2537 [address] RoadDublin [place] [id number] Color Nom (U) Yellow Normal Comprehensi ve Internal Medicine Work Phone: Comment on above: PATIENT NOT FASTINGP ERFORMED BY: WHITLEY [facility] Lovozt2504 [address] RoadDublin [place] [id number] Glucose Ql (U) Negative Normal Comprehens rubi Internal Medicine Work Phone: Comment on above: PATIENT NOT FASTINGP ERFORMED BY: WHITLEY [facility] Vqqvct9323 [address] RoadDublin [place] [id number] Glucose Ql (U) Negative Normal Comprehens rubi [facility]; [facility] Work Phone: Comment on above: PATIENT NOT FASTINGP ERFORMED BY: WHITLEY LabErika ParrishLrsdyv4687 [address] RoadDublin [place] [id number] Hemoglobin Ql (U) Negative Normal Compreh ensive Internal Medicine Work Phone: Comment on above: PATIENT NOT FASTINGP ERFORMED BY: WHITLEY LabCokarli ParrishShirnw5671 [address] RoadDublin [place] [id number] Hemoglobin Ql (U) Negative Normal Compreh ensive [facility] Medicine; [facility] Work Phone: Comment on above: PATIENT NOT FASTINGP ERFORMED BY: WHITLEY LabErika ParrishUpoehx0565 [address] RoadDublin [place] [id number] Hemoglobin Test strip Ql (U) Negative Normal [facility] Work Phone: Ketones Ql (U) Negative Normal Comprehens rubi Internal Medicine Work Phone: Comment on above: PATIENT NOT FASTINGP ERFORMED BY: WHITLEY Parrishlin6370 [address] RoadDublin [place] [id number] Ketones Ql (U) Negative Normal Comprehens rubi [facility]; [facility] Work Phone: Comment on above: PATIENT NOT FASTINGP ERFORMED BY: WHITLEY LabErika ParrishAcyrlm5450 [address] RoadDublin [place] [id number] Leukocyte esterase Test strip Ql (U) Negative Normal [facility] Work Phone: Comment on above: PATIENT NOT FASTINGP ERFORMED BY: WHITLEY LabErika ParrishUvpjay8182 [address]Dublin [place] [id number] Leukocyte esterase Test strip Ql (U) Negative Normal [facility]; [facility] Work Phone: Comment on above: PATIENT NOT FASTINGP ERFORMED BY: WHITLEY LabErika ParrishVcpmyv5740 [address] RoadDublin [place] [id number] Microscopic observation LM Nom (Urine sed) MICNIP Normal [facility] Work Phone: Comment on above: Microscopic not gerda cated and not performed. PATIENT NOT FASTINGP ERFORMED BY: WHITLEY [facility] Hphtaw7882 [address] RoadDublin [place] [id number] Nitrite Ql (U) Negative Normal Comprehens rubi Internal Medicine Work Phone: Comment on above: PATIENT NOT FASTINGP ERFORMED BY: WHITLEY Cota6370 [address] RoadPerson Memorial Hospitalin [place] [id number] Nitrite Ql (U) Negative Normal Comprehens rubi [facility] Medicine; [facility] Work Phone: Comment on above: PATIENT NOT FASTINGP ERFORMED BY: WHITLEY Cota[address] [facility] [id number] Nitrite Test strip Ql (U) Negative Normal [facility] Work Phone: pH (U) 6.5 [pH] Normal 5.0-7.5 [facility] Work Phone: Comment on above: PATIENT NOT FASTINGP ERFORMED BY: WHITLEY Cota[address] [facility] [id number] pH Test strip (U) 6.5 [pH] Normal 5.0-7.5 Compreh ensive Internal Medicine Work Phone: Protein Ql (U) Negative Normal Comprehens rubi [facility] Medicine Work Phone: Comment on above: PATIENT NOT FASTINGP ERFORMED BY: WHITLEY Cota[address] [facility] [id number] Protein Ql (U) Negative Normal Comprehens rubi [facility]; [facility] Work Phone: Comment on above: PATIENT NOT FASTINGP ERFORMED BY: WHITLEY Cota[address] [facility] [id number] Protein Test strip Ql (U) Negative Normal [facility] Work Phone: Specific gravity Relative Density (U) 1.008 1 Normal 1.005-1.030 Comprehensi ve Internal Medicine Work Phone: Comment on above: PATIENT NOT FASTINGP ERFORMED BY: WHITLEY Parrishlin[address] [facility] [id number] Urobilinogen (U) [Mass/Vol] 0.2 mg/dL Normal 0.2-1.0 [facility]; [facility] Work Phone: Comment on above: PATIENT NOT FASTINGP ERFORMED BY: WHITLEY Cota[address] [facility]comGr[facility] [id number] Urobilinogen Test strip mass conc (U) 0.2 mg/dL Normal 0.2-1.0 Comprehensiv e Internal Medicine Work Phone: Comment on above: PATIENT NOT FASTINGP ERFORMED BY: WHITLEY Muse Orhsmv1326 [facility] [id number] CALCIFIDIOL (52955) VIT D 25 Ordered By: Photography Professor on 08-25-2016 25-Hydroxyvitamin D2+25-Hydroxyvitamin D3 mass conc 38.1 ng/mL Normal 30.0-100.0 [facility] Work Phone: Comment on above: Vitamin D deficiency has been defined by the [place] of[facility] and an Endocrine Society practice guideline as alevel of serum 25-OH vitamin D less than 20 ng/mL (1,2).The Endocrine Society went on to further define vitamin Dinsufficiency as a level between 21 and 29 ng/mL (2).1. IOM ([place] of Medicine). 2010. Dietary reference intakes for calcium and D. [place]: The National Academies Press.2. De MF, Agustin PEREIRA, Andree CHAO, et al. Evaluation, treatment, and prevention of vitamin D deficiency: an Endocrine Society clinical practice guideline. JCEM. 2010; 96(7):1911-30. PATIENT WAS FASTINGP ERFORMED BY: WHITLEY Muse Qiriib3673 [facility] [id number] HGB A1C (15082)Ordered By: S ystem Client Care Specialist on 08-25-2016 Hemoglobin A1c/Hemoglobin.total mass fraction (Bld) 5.9 % Abnormal 4.8-5.6 Comprehensiv e Internal Medicine Work Phone: Comment on above: . Pre-diabetes: 5.7 - 6.4 Diabetes: >6.4 Glycemic control for adults with diabetes: <7.0 PATIENT WAS FASTINGP ERFORMED BY: WHITLEY EdvivoHelen Rtspxo2243 [facility] [id number]; fu 5-30 db IGP, Aptima HPV, rfx 16/18,4 5Ordered By: Photography Professor on 05-06-2016 HPV 16+18+31+33+35+39+45 +51+52+56+58+59+66+6 8 DNA Probe+sig amp Ql (Cvx) Negative Normal [facility] Work Phone: Comment on above: This test detects fo urteen high-risk HPV types (16/18/31/33/35/39/45/51/52/56/58/59/66/68) without differentiation. Source.............C ervix;EndocervixNo. of containers..01 CYTYC Thin Prep VialPATIENT NOT FASTINGPERFORMED BY: =G [employer] [id number] BY: [employer] [id number] Microscopic observation Other stain Nom (Unsp spec) . Normal [facility] Work Phone: Comment on above: Source.............C ervix;EndocervixNo. of containers..01 CYTYC Thin Prep VialPATIENT NOT FASTINGPERFORMED BY: =G [employer] W [id number] BY: [employer] [id number] Pathology report final diagnosis Narrative [facility] Normal [facility] Work Phone: Comment on above: NEGATIVE FOR INTRAEP ITHELIAL LESION AND MALIGNANCY.Satisfactory for evaluation. No endocervical component is identified.Z01.419Nikky Rosa Education And Development Manager ([facility]) Source.............C ervix;EndocervixNo. of containers..01 CYTYC Thin Prep VialPATIENT NOT FASTINGPERFORMED BY: =G Aloqa120 Mevio W [id number] BY: [place]LabCharl[place] [id number] IGP, Aptima HPV, rfx 16/18,45 PAPSMR Normal [facility] Work Phone: Comment on above: The Pap smear is a s creening test designed to aid in the detection ofpremalignant and malignant conditions of the uterine cervix. It is not adiagnostic procedure and should not be used as the sole means of detectingcervical cancer. Both false-positive and false-negative reports do occur. .This liquid based ThinPrep(R) pap test was screened with theuse of an image guided system. Source.............C ervix;EndocervixNo. of containers..01 CYTYC Thin Prep VialPATIENT NOT FASTINGPERFORMED BY: =G [employer] [id number] BY: [employer] Z[address]rgtrxao[address] [id number] Thin prep Pap ([id number]) (no ST D testing)Ordered By: Photography Professor on 05-06-2016 Thin prep Pap ([id number]) (no STD testing) 30-65 Normal [facility] Work Phone: Comment on above: Source.............C ervix;EndocervixNo. of containers..01 CYTYC Thin Prep VialPATIENT NOT FASTINGPERFORMED BY: =G [employer] [id number] BY: [employer] [id number] Information: [id number] URINE CHARLY CULTURE-IDENTIFICA [place] ([id number])Ordered By: Photography Professor on 08-08-2015 Bacteria identified Cx Nom (U) MUG Normal [facility] Work Phone: Comment on above: Mixed urogenital juanito ra1,000 Colonies/mL PATIENT NOT FASTINGP ERFORMED BY: [facility] [id number] [facility] [id number] Information: [id number] Bacteria identified Cx Nom (U) Final report Normal [facility] Work Phone: Comment on above: PATIENT NOT FASTINGP ERFORMED BY: WHITLEY [facility] Zybgyq2832 [facility] [id number] Information: [id number] Urinalysis, Office (28460)Or dered By: Narayan Allen on 08-08-2015 Bilirubin Ql (U) Negative Normal Comprehe nsive Internal Medicine Work Phone: Bilirubin Ql (U) Negative Normal Comprehe nsive [facility]; [facility] Work Phone: Glucose Test strip (U) [Mass/Vol] Negative Normal [facility]; [facility] Work Phone: Glucose Test strip mass conc (U) Negative Normal [facility] Work Phone: Hemoglobin Ql (U) Non Hemolyzed Trace Normal [facility] Work Phone: Hemoglobin Test strip Ql (U) Non Hemolyzed Trace Normal Comprehensiv e Internal Medicine Work Phone: Ketones Ql (U) Negative Normal Comprehens rubi [facility] Medicine Work Phone: Ketones Ql (U) Negative Normal Comprehens rubi [facility]; [facility] Work Phone: Leukocyte esterase Test strip Ql (U) Negative Normal [facility] Work Phone: Leukocyte esterase Test strip Ql (U) Negative Normal [facility]; [facility] Work Phone: Nitrite Ql (U) Negative Normal Comprehens rubi [facility] Work Phone: Nitrite Ql (U) Negative Normal Comprehens rubi [facility]; [facility] Work Phone: Nitrite Test strip Ql (U) Negative Normal [facility] Work Phone: pH (U) 6 [pH] Abnormal [facility] Work Phone: pH Test strip (U) 6 [pH] Abnormal Compreh ensive [facility] Work Phone: Protein Ql (U) Negative Normal Comprehens rubi [facility] Work Phone: Protein Ql (U) Negative Normal Comprehens rubi [facility]; [facility] Work Phone: Protein Test strip Ql (U) Negative Normal [facility] Work Phone: Specific gravity Relative Density (U) 1.015 1 Normal Comprehensi ve Internal Medicine Work Phone: Urobilinogen mass/time (24H U) Normal Normal [facility] Work Phone: URINE CHARLY CULTURE-CHUY COL C OUNT (01183)Ordered By: Photography Professor on 07-23-2015 Bacteria identified Cx Nom (U) Final report Abnormal [facility] Work Phone: Comment on above: PATIENT NOT FASTINGP ERFORMED BY: ClearMomentum70 MemberTender.comCardinal Hill Rehabilitation Center [id number] Information: SRC:UR [id number] Bacteria identified Cx Nom (U) ECV Abnormal [facility] Work Phone: Comment on above: Escherichia coli, id entified by an automated biochemical system.25,000-50,000 colony forming units per mL S = Susceptible; I = Intermediate; R = Resistant P = Positive; N = Negative MICS are expressed in micrograms per mL Antibiotic RSLT#1 RSLT#2 RSLT#3 RSLT#4Amoxicillin/Clavulanic Acid SAmpicillin RCefepime SCeftriaxone SCefuroxime SCephalothin SCiprofloxacin SErtapenem SGentamicin SImipenem SLevofloxacin SNitrofurantoin SPiperacillin RTetracycline STobramycin STrimethoprim/Sulfa S PATIENT NOT FASTINGP ERFORMED BY: [employer] Huascc3255 MemberTender.comCardinal Hill Rehabilitation Center [id number] Information: SRC:UR [id number] Urinalysis, Office (62802)Or dered By: Lia Johnson on 07-23-2015 Bilirubin Ql (U) Negative Normal Comprehe nsive [facility] Medicine Work Phone: Bilirubin Ql (U) Negative Normal Comprehe nsive [facility]; [facility] Work Phone: Glucose Test strip (U) [Mass/Vol] Negative Normal [facility]; [facility] Work Phone: Glucose Test strip mass conc (U) Negative Normal [facility] Work Phone: Hemoglobin Ql (U) Negative Normal Compreh ensive [facility] Work Phone: Hemoglobin Ql (U) Negative Normal Compreh ensive [facility]; [facility] Work Phone: Hemoglobin Test strip Ql (U) Negative Normal [facility] Work Phone: Ketones Ql (U) Negative Normal Comprehens rubi [facility] Work Phone: Ketones Ql (U) Negative Normal Comprehens rubi [facility]; [facility] Work Phone: Leukocyte esterase Test strip Ql (U) Trace Normal [facility] Work Phone: Nitrite Ql (U) Negative Normal Comprehens rubi [facility] Work Phone: Nitrite Ql (U) Negative Normal Comprehens rubi [facility]; [facility] Work Phone: Nitrite Test strip Ql (U) Negative Normal [facility] Work Phone: pH (U) 7 [pH] Normal [facility] Work Phone: pH Test strip (U) 7 [pH] Normal Compreh ensive [facility] Work Phone: Protein Ql (U) Negative Normal Comprehens rubi [facility] Work Phone: Protein Ql (U) Negative Normal Comprehens rubi [facility]; [facility] Work Phone: Protein Test strip Ql (U) Negative Normal [facility] Work Phone: Specific gravity Relative Density (U) 1.010 1 Normal Comprehensi ve [facility] Work Phone: Urobilinogen mass/time (24H U) Normal Normal [facility] Work Phone: ENDOMETRIAL BX/CURETTINGSOrd ered By: Photography Professor on 01-08-2015 ENDOMETRIAL BX/CURETTINGS See Note Normal [facility] Work Phone: Comment on above: Patient: SAMI CAMPUZANO : 1955 (59/F) Acct Num: [id number] Phys: Nayeli Summers MD Unit Num: [id number] Loc: [facility] Specimen: [id number] Received: 01/09/15 - 1020 Spec Type: ENDOM BX/C TISSUES TISSUES: COMMENT Case has been reviewed in consultation with Dr. Anderson who concurs with the abovediagnosis. IDC:AM GROSS DESCRIPTION Received is one container labeled with the patient name and designated endometrial curettings. The specimen consists of multiple irregular fragmentsof dark roman soft tissue measuring in aggregate 3 x 2.5 x 0.2 cm. The specimen is totally submitted in one cassette. / AM: 01/09/15 TC:5 CPT: 25785 HEADER OPERATION: Hysteroscopy, diagnostic D AND C PRE-OP DIAGNOSIS: Leiomyoma of uterus, postmenopausal bleeding TISSUE SUBMITTED: Endometrial curettings MICROSCOPIC DESCRIPTION Slides are reviewed. MICROSCOPIC DIAGNOSIS Endometrial curettings: Weakly proliferative endometrium with cystic atrophic changes. SJ: 01/10/15 Signed Billy Padron 01/10/15 [facility] [address] [place], [address] ,UrineOrdered By: Judah [facility] Client Care Specialist on 01-08-2015 HCG.beta subunit ( test) Ql (U) Negative Normal [facility] Work Phone: Comment on above: Very dilute urine sp ecimens, as indicated by a low specificgravity, may not contain textile machinery sales representative levels of hCG.If is still suspected, a first morning urinespecimen should be collected 48 hours later and tested. Test performed at:[facility] [address] [place], [place] [id number] HCGUQUAL Negative Normal [facility] Work Phone: Comment on above: Very dilute urine sp ecimens, as indicated by a low specificgravity, may not contain textile machinery sales representative levels of hCG.If is still suspected, a first morning urinespecimen should be collected 48 hours later and tested. CBC With Differential/Platel etOrdered By: Photography Professor on 10-18-2014 Basophils #/vol (Bld) 0.0 {x10E3/uL} Normal 0.0-0.2 [facility] Work Phone: Comment on above: PATIENT WAS FASTINGP ERFORMED BY: [address] [id number] Information: [id number] Basophils Auto #/vol (Bld) 0.0 {x10E3/uL} Normal 0.0-0.2 [facility] Work Phone: Basophils/100 WBC (Bld) 0 % Normal [facility] Work Phone: Comment on above: PATIENT WAS FASTINGP ERFORMED BY: [address] [id number] Information: [id number] Basophils/100 WBC Auto (Bld) 0 % Normal [facility] Work Phone: Eosinophils #/vol (Bld) 0.1 {x10E3/uL} Normal 0.0-0.4 [facility] Work Phone: Comment on above: PATIENT WAS FASTINGP ERFORMED BY: [address] [id number] Information: [id number] Eosinophils Auto #/vol (Bld) 0.1 {x10E3/uL} Normal 0.0-0.4 [facility] Work Phone: Eosinophils/100 WBC (Bld) 3 % Normal [facility] Work Phone: Comment on above: PATIENT WAS FASTINGP ERFORMED BY: [address] [id number] Information: [id number] Eosinophils/100 WBC Auto (Bld) 3 % Normal [facility] Work Phone: Erythrocyte distribution width Auto Ratio (RBC) 14.1 % Normal 12.3-15.4 [facility] Work Phone: Erythrocyte distribution width Ratio (RBC) 14.1 % Normal 12.3-15.4 [facility] Work Phone: Comment on above: PATIENT WAS FASTINGP ERFORMED BY: [address] [id number] Information: [id number] Hematocrit Auto Volume Fraction (Bld) 38.3 % Normal 34.0-46.6 [facility] Work Phone: Hematocrit Volume Fraction (Bld) 38.3 % Normal 34.0-46.6 [facility] Work Phone: Comment on above: PATIENT WAS FASTINGP ERFORMED BY: [address] [id number] Information: [id number] Hemoglobin mass conc (Bld) 12.8 g/dL Normal 11.1-15.9 [facility] Work Phone: Comment on above: PATIENT WAS FASTINGP ERFORMED BY: [address] [id number] Information: [id number] Immature granulocytes #/vol (Bld) 0.0 {x10E3/uL} Normal 0.0-0.1 [facility] Work Phone: Comment on above: PATIENT WAS FASTINGP ERFORMED BY: [address] [id number] Information: [id number] Immature granulocytes/100 WBC (Bld) 0 % Normal [facility] Work Phone: Comment on above: PATIENT WAS FASTINGP ERFORMED BY: [address] [id number] Information: [id number] Lymphocytes #/vol (Bld) 1.4 {x10E3/uL} Normal 0.7-3.1 [facility] Work Phone: Comment on above: PATIENT WAS FASTINGP ERFORMED BY: WHITLEY [facility]6370 [facility] [id number] Information: [id number] Lymphocytes Auto #/vol (Bld) 1.4 {x10E3/uL} Normal 0.7-3.1 [facility] Work Phone: Lymphocytes/100 WBC (Bld) 32 % Normal [facility] Work Phone: Comment on above: PATIENT WAS FASTINGP ERFORMED BY: [place] [id number] [facility] [id number] Information: [id number] Lymphocytes/100 WBC Auto (Bld) 32 % Normal [facility] Work Phone: MCH Auto Entitic mass (RBC) 28.6 pg Normal 26.6-33.0 [facility] Work Phone: MCH Entitic mass (RBC) 28.6 pg Normal 26.6-33.0 [facility] Work Phone: Comment on above: PATIENT WAS FASTINGP ERFORMED BY: WHITLEY [place] [id number] [facility] [id number] Information: [id number] MCHC Auto mass conc (RBC) 33.4 g/dL Normal 31.5-35.7 [facility] Work Phone: MCHC mass conc (RBC) 33.4 g/dL Normal 31.5-35.7 Comp rust [facility] Work Phone: Comment on above: PATIENT WAS FASTINGP ERFORMED BY: WHITLEY [facility]6370 [facility] [id number] Information: [id number] MCV Auto Entitic volume (RBC) 86 fL Normal 79-97 [facility] Work Phone: MCV Entitic volume (RBC) 86 fL Normal 79-97 [facility] Work Phone: Comment on above: PATIENT WAS FASTINGP ERFORMED BY: [place] 6165970 [facility] [id number] Information: [id number] Monocytes #/vol (Bld) 0.6 {x10E3/uL} Normal 0.1-0.9 [facility] Work Phone: Comment on above: PATIENT WAS FASTINGP ERFORMED BY: [place] 6165970 [facility] [id number] Information: [id number] Monocytes Auto #/vol (Bld) 0.6 {x10E3/uL} Normal 0.1-0.9 [facility] Work Phone: Monocytes/100 WBC (Bld) 14 % Normal [facility] Work Phone: Comment on above: PATIENT WAS FASTINGP ERFORMED BY: [address] [id number] Information: [id number] Monocytes/100 WBC Auto (Bld) 14 % Normal [facility] Work Phone: Neutrophils #/vol (Bld) 2.3 {x10E3/uL} Normal 1.4-7.0 [facility] Work Phone: Comment on above: PATIENT WAS FASTINGP ERFORMED BY: [place] [id number] [facility] [id number] Information: [id number] Neutrophils Auto #/vol (Bld) 2.3 {x10E3/uL} Normal 1.4-7.0 [facility] Work Phone: Neutrophils/100 WBC (Bld) 51 % Normal [facility] Work Phone: Comment on above: PATIENT WAS FASTINGP ERFORMED BY: [address] [id number] Information: [id number] Neutrophils/100 WBC Auto (Bld) 51 % Normal [facility] Work Phone: Platelets #/vol (Bld) 196 {x10E3/uL} Normal 150-379 [facility] Work Phone: Comment on above: PATIENT WAS FASTINGP ERFORMED BY: WHITLEY LabCokarli ParrishLimuxi2900 [facility] [id number] Information: [id number] Platelets Auto #/vol (Bld) 196 {x10E3/uL} Normal 150-379 [facility] Work Phone: RBC #/vol (Bld) 4.47 {x10E6/uL} Normal 3.77-5.28 Comp rust [facility] Work Phone: Comment on above: PATIENT WAS FASTINGP ERFORMED BY: WHITLEY LabCokarli ParrishAmjokg6840 [facility] [id number] Information: [id number] RBC Auto #/vol (Bld) 4.47 {x10E6/uL} Normal 3.77-5.28 [facility] Work Phone: WBC #/vol (Bld) 4.5 {x10E3/uL} Normal 3.4-10.8 [facility] Work Phone: Comment on above: PATIENT WAS FASTINGP ERFORMED BY: WHITLEY Parrishlin6370 [facility] [id number] Information: [id number] WBC Auto #/vol (Bld) 4.5 {x10E3/uL} Normal 3.4-10.8 [facility] Work Phone: Comp. Metabolic Panel (14)Or dered By: Photography Professor on 10-18-2014 Albumin mass conc 4.1 g/dL Normal 3.5-5.5 [facility] Work Phone: Comment on above: PATIENT WAS FASTINGP ERFORMED BY: WHITLEY LabCokarli ParrishKqxckt2632 [facility] [id number] Albumin/Globulin mass ratio 1.9 {ratio} Normal 1.1-2.5 [facility] Work Phone: Comment on above: PATIENT WAS FASTINGP ERFORMED BY: WHITLEY LabCokarli ParrishQsfntz3804 [facility] [id number] ALP enzyme act/vol 88 [iU]/L Normal 39-117 [facility] Work Phone: Comment on above: PATIENT WAS FASTINGP ERFORMED BY: WHITLEY [facility] Jpqkrx3958 [address] RoadDublin [place] [id number] ALT enzyme act/vol 18 [iU]/L Normal 0-32 [facility] Work Phone: Comment on above: PATIENT WAS FASTINGP ERFORMED BY: CB [facility] Laddpb6253 [address] RoadDublin [place] [id number] AST enzyme act/vol 21 [iU]/L Normal 0-40 [facility] Work Phone: Comment on above: PATIENT WAS FASTINGP ERFORMED BY: WHITLEY [facility] Whkuph2891 [address] RoadDublin [place] [id number] Bilirubin mass conc 0.3 mg/dL Normal 0.0-1.2 Compr ensive [facility] Medicine Work Phone: Comment on above: PATIENT WAS FASTINGP ERFORMED BY: WHITELY [facility] Fdrneh6779 [address] RoadDublin [place] [id number] Calcium mass conc 9.0 mg/dL Normal 8.7-10.2 Compreh [facility] Work Phone: Comment on above: PATIENT WAS FASTINGP ERFORMED BY: WHITLEY [facility] Qgmqmn7929 [address] RoadDublin [place] [id number] Chloride molar conc 103 mmol/L Normal 97-108 Compr ensive [facility] Medicine Work Phone: Comment on above: PATIENT WAS FASTINGP ERFORMED BY: WHITLEY [facility] Coozis7898 [address] RoadDublin [place] [id number] CO2 molar conc 24 mmol/L Normal 18-29 Comprehens [facility] Internal Medicine Work Phone: Comment on above: PATIENT WAS FASTINGP ERFORMED BY: CB [facility] Poqngm7864 [address] RoadDublin [place] [id number] Creatinine mass conc 0.63 mg/dL Normal 0.57-1.00 Comp [facility] Work Phone: Comment on above: PATIENT WAS FASTINGP ERFORMED BY: WHITLEY LabHelen Dasexm2605 [address] Roadblin [place] [id number] GFR/1.73 sq M predicted among blacks CKD-EPI vol rate/area (S/P/Bld) 115 mL/min/1.73 Normal Comprehensiv e Internal Medicine Work Phone: Comment on above: PATIENT WAS FASTINGP ERFORMED BY: WHITLEY [facility] Xauvfo6977 [address] Roadblin [place] [id number] GFR/1.73 sq M predicted among non-blacks CKD-EPI vol rate/area (S/P/Bld) 100 mL/min/1.73 Normal [facility] Work Phone: Comment on above: PATIENT WAS FASTINGP ERFORMED BY: WHITLEY RobinErika ParrishKfeobm[address] [facility]in [place] [id number] Globulin Calculated mass conc (S) 2.2 g/dL Normal 1.5-4.5 [facility] Work Phone: Globulin mass conc (S) 2.2 g/dL Normal 1.5-4.5 [facility] Work Phone: Comment on above: PATIENT WAS FASTINGP ERFORMED BY: WHITLEY RobinErika ParrishMivlsr4650 [facility] [id number] Glucose mass conc 90 mg/dL Normal 65-99 Compreh ensive Internal Medicine Work Phone: Comment on above: PATIENT WAS FASTINGP ERFORMED BY: WHITLEY [facility] Nucjzc[address] [facility] [id number] Potassium molar conc 4.2 mmol/L Normal 3.5-5.2 Comp rehensive Internal Medicine Work Phone: Comment on above: PATIENT WAS FASTINGP ERFORMED BY: WHITLEY [facility] Etzcoy[address] [facility] Centerin [place] [id number] Protein mass conc 6.3 g/dL Normal 6.0-8.5 Compreh ensive Internal Medicine Work Phone: Comment on above: PATIENT WAS FASTINGP ERFORMED BY: WHITLEY [facility] Kpeebs0603 [facility] [id number] Sodium molar conc 143 mmol/L Normal 134-144 Compreh ensive [facility] Work Phone: Comment on above: PATIENT WAS FASTINGP ERFORMED BY: WHITLEY Parrishlin6370 [facility] [id number] Urea nitrogen mass conc 16 mg/dL Normal 6-24 [facility] Work Phone: Comment on above: PATIENT WAS FASTINGP ERFORMED BY: WHITLEY [place] [id number] [facility] [id number] Urea nitrogen/Creatinine mass ratio 25 mg/mg Abnormal 9-23 [facility] Work Phone: Comment on above: PATIENT WAS FASTINGP ERFORMED BY: WHITLEY Green Rjzykz8835 [facility] [id number] EstradiolOrdered By: Photography Professor on 10-18-2014 Estradiol (E2) mass conc 204.3 pg/mL Normal [facility] Work Phone: Comment on above: Adult Female: Follic ular phase 12.5 - 166.0 Ovulation phase 85.8 - 498.0 Luteal phase 43.8 - 211.0 Postmenopausal <6.0 - 54.7 1st trimester 215.0 - >4300.0 Girls (1-10 years) 6.0 - 27.0Roche ECLIA methodology PATIENT WAS FASTINGP ERFORMED BY: WHITLEY [facility]6370 [facility] [id number] FSH and LHOrdered By: Photography Professor on 10-18-2014 Follitropin Qn 43.8 m[IU]/mL Normal Compreh ensive Internal Medicine Work Phone: Comment on above: Follicular phase 3.5 - 12.5 Ovulation phase 4.7 - 21.5 Luteal phase 1.7 - 7.7 Postmenopausal 25.8 - 134.8 PATIENT WAS FASTINGP ERFORMED BY: WHITLEY [facility]6370 [facility] [id number] Lutropin Qn 47.0 m[IU]/mL Normal Comprehens rubi Internal Medicine Work Phone: Comment on above: Follicular phase 2.4 - 12.6 Ovulation phase 14.0 - 95.6 Luteal phase 1.0 - 11.4 Postmenopausal 7.7 - 58.5 PATIENT WAS FASTINGP ERFORMED BY: WHITLEY LabErika Vrvrtp0855 StartMeBets[facility] [id number] Lipid Panel With LDL/HDL Rat ioOrdered By: Photography Professor on 10-18-2014 Cholesterol in HDL mass conc 56 mg/dL Normal [facility] Work Phone: Comment on above: According to ATP-III Guidelines, HDL-C >59 mg/dL is considered anegative risk factor for CHD. PATIENT WAS FASTINGP ERFORMED BY: WHITLEY Parrishlin[address] BrandWatch TechnologiesBetsy Johnson Regional Hospital [id number] Cholesterol in LDL mass conc 107 mg/dL Abnormal 0-99 [facility] Work Phone: Comment on above: PATIENT WAS FASTINGP ERFORMED BY: WHITLEY Parrishlin[address] MadBid.comGranville Medical Center [id number] Cholesterol in LDL/Cholesterol in HDL mass ratio 1.9 {ratio_units} Normal 0.0-3.2 [facility] Work Phone: Comment on above: LDL/HDL Ratio Men Wo men 1/2 Avg.Risk 1.0 1.5 Avg.Risk 3.6 3.2 2X Avg.Risk 6.2 5.0 3X Avg.Risk 8.0 6.1 PATIENT WAS FASTINGP ERFORMED BY: WHITLEY Parrishlin[address] MadBid.comGranville Medical Center [id number] Cholesterol in VLDL mass conc 10 mg/dL Normal 5-40 [facility] Work Phone: Comment on above: PATIENT WAS FASTINGP ERFORMED BY: WHITLEY LabErika Yzelef[address] BrandWatch TechnologiesBetsy Johnson [facility] [id number] Cholesterol mass conc 173 mg/dL Normal 100-199 [facility] Work Phone: Comment on above: PATIENT WAS FASTINGP ERFORMED BY: WHITLEY LabErika Yaqczf[address] BrandWatch TechnologiesBetsy Johnson [facility] Hospital [id number] Triglyceride mass conc 52 mg/dL Normal 0-149 [facility] Work Phone: Comment on above: PATIENT WAS FASTINGP ERFORMED BY: WHITLEY [facility] Msaner1594 [address] RoadDublin [place] [id number] Microscopic ExaminationOrder ed By: Photography Professor on 10-18-2014 Bacteria LM.HPF #/area (Urine sed) Few Normal [facility] Work Phone: Comment on above: PATIENT WAS FASTINGP ERFORMED BY: WHITLEY [facility] Bafdfh5711 [address] RoadDublin [place] [id number] Epithelial cells LM.HPF #/area (Urine sed) /[HPF] Abnormal 0 - 10 [facility] Work Phone: Comment on above: PATIENT WAS FASTINGP ERFORMED BY: WHITLEY [facility] Owpamp1356 [address] RoadDublin [place] [id number] Mucus LM Ql (Urine sed) Present Normal [facility] Work Phone: Mucus Ql (Urine sed) Present Normal Comp rehensive Internal Medicine Work Phone: Comment on above: PATIENT WAS FASTINGP ERFORMED BY: WHITLEY [facility] Dxcoji8044 [address] RoadDublin [place] [id number] RBC LM.HPF #/area (Urine sed) 0-2 Normal 0 - 2 [facility] Work Phone: Comment on above: PATIENT WAS FASTINGP ERFORMED BY: WHITLEY [facility] Xtafzj3749 [address] RoadDublin [place] [id number] WBC LM.HPF #/area (Urine sed) 0-5 Normal 0 - 5 [facility] Work Phone: Comment on above: PATIENT WAS FASTINGP ERFORMED BY: WHITLEY [facility] Kgzpfc1467 [address] RoadDublin [place] [id number] ProlactinOrdered By: Photography Professor on 10-18-2014 Prolactin mass conc 26.7 ng/mL Abnormal 4.8-23.3 Compr ensive Internal Medicine Work Phone: Comment on above: PATIENT WAS FASTINGP ERFORMED BY: CB [facility] Xlsphk1627 [address] RoadDublin [place] [id number] TSHOrdered By: System Manage r on 10-18-2014 Thyrotropin Qn 3.990 {uIU/mL} Normal 0.450-4.500 Compr ehensive Internal Medicine Work Phone: Comment on above: PATIENT WAS FASTINGP ERFORMED BY: WHITLEY RobinErika ParrishRzpmyh[address] [facility] Centerin [place] [id number] Thyroxine (T4) Free, Direct, SOrdered By: Photography Professor on 10-18-2014 T4 free mass conc 1.02 ng/dL Normal 0.82-1.77 Compreh ensive Internal Medicine Work Phone: Comment on above: PATIENT WAS FASTINGP ERFORMED BY: WHITLEY LabHelen Buuwyc0425 Dod[address] RoadPerson Memorial Hospitalin [place] [id number] Triiodothyronine,Free,SerumO rdered By: Photography Professor on 10-18-2014 T3 free mass conc 3.5 pg/mL Normal 2.0-4.4 Compreh ensive Internal Medicine Work Phone: Comment on above: PATIENT WAS FASTINGP ERFORMED BY: WHITLEY Muse [id number] [facility] [id number] Urinalysis, CompleteOrdered By: Photography Professor on 10-18-2014 Appearance Nom (U) Clear Normal Compre hensive Internal Medicine Work Phone: Comment on above: PATIENT WAS FASTINGP ERFORMED BY: WHITLEY RobinErika ParrishNygqfm2438 [address] [facility] [place] [id number] Bilirubin Ql (U) Negative Normal Comprehe nsive Internal Medicine Work Phone: Comment on above: PATIENT WAS FASTINGP ERFORMED BY: WHITLEY LabHelen Vulfji5969 [facility] [place] [id number] Color Nom (U) Yellow Normal Comprehensi ve Internal Medicine Work Phone: Comment on above: PATIENT WAS FASTINGP ERFORMED BY: WHITLEY [facility] Puveqa5020 [facility] [facility] [place] [id number] Glucose Ql (U) Negative Normal Comprehens urbi Internal Medicine Work Phone: Comment on above: PATIENT WAS FASTINGP ERFORMED BY: WHITELY [facility] Ripfho1546 [facility] [place] [id number] Hemoglobin Ql (U) Negative Normal Compreh ensive Internal Medicine Work Phone: Comment on above: PATIENT WAS FASTINGP ERFORMED BY: WHITLEY [facility] Pphpaw0188 Dodson RoadDublin [place] [id number] Hemoglobin Test strip Ql (U) Negative Normal [facility] Work Phone: Ketones Ql (U) Negative Normal Comprehens rubi Internal Medicine Work Phone: Comment on above: PATIENT WAS FASTINGP ERFORMED BY: WHITLEY [facility] Rsdhia0412 Dodson RoadDublin [place] [id number] Leukocyte esterase Test strip Ql (U) Negative Normal [facility] Work Phone: Comment on above: PATIENT WAS FASTINGP ERFORMED BY: WHITLEY [facility] Fshgxg5264 Dodson RoadDublin [place] [id number] Microscopic observation LM Nom (Urine sed) See below: Normal [facility] Work Phone: Comment on above: Microscopic was gerda cated and was performed. PATIENT WAS FASTINGP ERFORMED BY: WHITLEY [facility] Gqrpqu2167 Dodson RoadDublin [place] [id number] Microscopic observation LM Nom (Urine sed) MICRON Normal [facility] Work Phone: Comment on above: Microscopic follows if indicated. PATIENT WAS FASTINGP ERFORMED BY: WHITLEY [facility] Lwiiys8495 Dodson RoadDublin [place] [id number] Nitrite Ql (U) Negative Normal Comprehens rubi Internal Medicine Work Phone: Comment on above: PATIENT WAS FASTINGP ERFORMED BY: [facility] Pqfkpe7865 [address]son RoadDublin [place] [id number] Nitrite Test strip Ql (U) Negative Normal [facility] Work Phone: pH (U) 6.0 [pH] Normal 5.0-7.5 [facility] Work Phone: Comment on above: PATIENT WAS FASTINGP ERFORMED BY: [facility] Vczxay4637 [address] RoadDublin [place] [id number] pH Test strip (U) 6.0 [pH] Normal 5.0-7.5 Compreh ensive Internal Medicine Work Phone: Protein Ql (U) Negative Normal Comprehens rubi Internal Medicine Work Phone: Comment on above: PATIENT WAS FASTINGP ERFORMED BY: [facility] Eqlecm5564 [address] [facility]Bid.comGr[facility] [id number] Protein Test strip Ql (U) Negative Normal [facility] Work Phone: Specific gravity Relative Density (U) 1.025 1 Normal 1.005-1.030 Comprehensi ve Internal Medicine Work Phone: Comment on above: PATIENT WAS FASTINGP ERFORMED BY: [facility] Fuujke4909 [address] BrandWatch TechnologiesBetsy [facility] [id number] Urobilinogen Test strip mass conc (U) 0.2 mg/dL Normal 0.0-1.9 Comprehensiv e Internal Medicine Work Phone: Comment on above: PATIENT WAS FASTINGP ERFORMED BY: [facility] Kaqmol9957 [facility] [id number] IGP, Aptima HPV, rfx 16/18,4 5Ordered By: Photography Professor on 10-16-2014 HPV 16+18+31+33+35+39+45 +51+52+56+58+59+66+6 8 DNA Probe+sig amp Ql (Cvx) Negative Normal [facility] Work Phone: Comment on above: This test detects fo urteen high-risk HPV types (16/18/31/33/35/39/45/51/52/56/58/59/66/68) without differentiation. Source.............C ervical;EndocervicalNo. of containers..01 CYTYC Thin Prep VialPATIENT NOT FASTINGPERFORMED BY: =G LabVapps120 [place] ShopographyOgden [facility] Center [id number] BY: WB LabVapps120 [place] MailsuiteShenzhen Winhap CommunicationsOgden Regional Medical Center [id number] Microscopic observation Other stain Nom (Unsp spec) . Normal [facility] Work Phone: Comment on above: Source.............C ervical;EndocervicalNo. of containers..01 CYTYC Thin Prep VialPATIENT NOT FASTINGPERFORMED BY: =G LabCoGuidekickSjxsxvxtki992 [address] PlaSuryarleston [place] [id number] BY: WB LabCoPogojo Baebfrqqzt902 [address] Jonasrlespascack valley [facility] [place] [id number] Pathology report final diagnosis Narrative SPRCS Normal [facility] Work Phone: Comment on above: NEGATIVE FOR INTRAEP ITHELIAL LESION AND MALIGNANCY.FUNGAL ORGANISMS MORPHOLOGICALLY CONSISTENT WITH MAURY SPECIES AREPRESENT.Satisfactory for evaluation. Endocervical and/or squamous metaplasticcells (endocervical component) are present.V72.31 ; Routine gynecological examinationChradha Nava, Education And Development Manager (ASCP) Source.............C ervical;EndocervicalNo. of containers..01 CYTYC Thin Prep VialPATIENT NOT FASTINGPERFORMED BY: =G [facility] Qyzpijftku994 [place] MailsuiteadrienneInverted [place] [id number] BY: WB LabVapps120 [place] MailsuitezaInverted Edgerlespasc[facility] [place] [id number] IGP, Aptima HPV, rfx 16/18,45 PAPSMR Normal [facility] Work Phone: Comment on above: The Pap smear is a s creening test designed to aid in the detection ofpremalignant and malignant conditions of the uterine cervix. It is not adiagnostic procedure and should not be used as the sole means of detectingcervical cancer. Both false-positive and false-negative reports do occur. .This liquid based ThinPrep(R) pap test was screened with theuse of an image guided system. Source.............C ervical;EndocervicalNo. of containers..01 CYTYC Thin Prep VialPATIENT NOT FASTINGPERFORMED BY: =G [facility] Tqaugpdsts357 [address] PlazaInverted [place] [id number] BY: WB LabCoVerticalResponse120 [place] MailsuitezaInverted Ed[facility]lespasc[facility] [place] [id number] IGP,Aptima HPV,CtNg Age Gdln Ordered By: Photography Professor on 10-16-2014 IGP,Aptima HPV,CtNg Age Gdln 30-65 Normal [facility] Work Phone: Comment on above: Source.............C ervical;EndocervicalNo. of containers..01 CYTYC Thin Prep VialPATIENT NOT FASTINGPERFORMED BY: =G [facility] Dhnvqsrsdz526 [facility] [id number] BY: WB [facility] Rltzdovulo443 [facility] [id number] Information: [id number] Urinalysis, Office ([id number])Or dered By: Josselyn Key on 12-19-2010 Bilirubin Ql (U) Negative Normal Comprehe nsive Internal Medicine Work Phone: Bilirubin Ql (U) Negative Normal Comprehe nsive Internal Medicine; [facility] Work Phone: Glucose Test strip (U) [Mass/Vol] Negative Normal [facility]; [facility] Work Phone: Glucose Test strip mass conc (U) Negative Normal [facility] Work Phone: Hemoglobin Ql (U) Non Hemolyzed Trace Normal [facility] Work Phone: Hemoglobin Test strip Ql (U) Non Hemolyzed Trace Normal Comprehensiv e Internal Medicine Work Phone: Ketones Ql (U) Negative Normal Comprehens rubi Internal Medicine Work Phone: Ketones Ql (U) Negative Normal Comprehens rubi Internal Medicine; [facility] Work Phone: Leukocyte esterase Test strip Ql (U) Small Normal [facility] Work Phone: Nitrite Ql (U) Negative Normal Comprehens rubi Internal Medicine Work Phone: Nitrite Ql (U) Negative Normal Comprehens rubi Internal Medicine; [facility] Work Phone: Nitrite Test strip Ql (U) Negative Normal [facility] Work Phone: pH (U) 7.0 [pH] Normal [facility] Work Phone: pH Test strip (U) 7.0 [pH] Normal Compreh ensive Internal Medicine Work Phone: Specific gravity Relative Density (U) 1.010 1 Normal Comprehensi ve Internal Medicine Work Phone: Urobilinogen mass/time (24H U) Normal Normal [facility] Work Phone: PELVIC (NON )Ordered By: Photography Professor on 10-29-2010 PELVIC (NON ) See Note Normal [facility] Work Phone: Comment on above: PROCEDURE: PELVIC UL TRASOUND REASON FOR EXAM: Female, 55 years old. Abdominal pain and urinaryretention. TECHNIQUE: Transabdominal COMPARISON: None. FINDINGS:The uterus is enlarged measuring 15 x 10.3 x 9.7 cm. The endometrium isnormal in thickness measuring 9 mm. There is a large uterine massmeasuring about 9.5 x 7.5 x 10 cm consistent with large uterine fibroid.There is another smaller mass measuring about 3.7 x 3.6 x 2.3 cm [...] 11/01/10 1047 Sign by: MIRIAM HENRY MD CULTURE, URINEOrdered By: Blue stem Client Care Specialist on 10-24-2010 Bacteria identified Cx Nom (U) See Note Normal [facility] Work Phone: Comment on above: COLONY COUNT 11,000- 25,000 ORGANISM 1: STREPTOCOCCUS AGALACTIAE (B) STREPTOCOCCUS AGALACTIAE (B): REACTION AMPICILLIN $$ <=0.25 S BENZYLPENICILLIN - <=0.12 S CEFAZOLIN *See Comment $ S* S CLINDAMYCIN $$ <=0.25 R LEVOFLOXACIN $ 2 S LINEZOLID $$$ 2 S QUINUPRISTIN/DALFOPRI (NF) $$$ <=0.25 S VANCOMYCIN $ <=0.5 S Urinalysis, Office ([id number])Or dered By: Ingrid Limon on 10-24-2010 Bilirubin Ql (U) Negative Normal Comprehe nsive Internal Medicine Work Phone: Glucose Test strip mass conc (U) Negative Normal [facility] Work Phone: Hemoglobin Ql (U) Hemolyzed Small Normal Co mprehensive [facility] Medicine Work Phone: Hemoglobin Test strip Ql (U) Hemolyzed Small Normal [facility] Work Phone: Ketones Ql (U) Negative Normal Comprehens rubi Internal Medicine Work Phone: Leukocyte esterase Test strip Ql (U) Negative Normal [facility] Work Phone: Nitrite Ql (U) Negative Normal Comprehens rubi [facility] Medicine Work Phone: Nitrite Test strip Ql (U) Negative Normal [facility] Work Phone: pH (U) 6.0 [pH] Normal [facility] Work Phone: pH Test strip (U) 6.0 [pH] Normal Compreh ensive Internal Medicine Work Phone: Protein Ql (U) Negative Normal Comprehens rubi [facility] Medicine Work Phone: Protein Test strip Ql (U) Negative Normal [facility] Work Phone: Specific gravity Relative Density (U) 1.015 1 Normal Comprehensi ve Internal Medicine Work Phone: Urobilinogen mass/time (24H U) 2 mg/dL Normal [facility] Work Phone: Urinalysis, Office ([id number])o n 10-24-2010 Bilirubin Ql (U) Negative Normal Comprehe nsive Internal Medicine; [facility] Work Phone: Glucose Test strip (U) [Mass/Vol] Negative Normal [facility]; [facility] Work Phone: Ketones Ql (U) Negative Normal Comprehens rubi [facility] Medicine; [facility] Work Phone: Leukocyte esterase Test strip Ql (U) Negative Normal [facility]; [facility] Work Phone: Nitrite Ql (U) Negative Normal Comprehens rubi [facility] Medicine; [facility] Work Phone: Protein Ql (U) Negative Normal Comprehens rubi [facility] Medicine; [facility] Work Phone: Thin prep Pap ([id number])Ordered By: Nehal Vu on 07-22-2007 Thin prep Pap ([id number]) . Normal [facility] Work Phone: Comment on above: Source.............C ervical;EndocervicalLMP / Prev Treat...[id number]=[id number]. of containers..01 CYTYC Thin Prep VialPATIENT NOT FASTINGPERFORMED BY: [employer] Olsh[address] [id number] Thin prep Pap ([id number]) SPRCS Normal [facility] Work Phone: Comment on above: NEGATIVE FOR INTRAEP ITHELIAL LESION AND MALIGNANCY.FUNGAL ORGANISMS MORPHOLOGICALLY CONSISTENT WITH MAURY SPECIES AREPRESENT.THIS SPECIMEN WAS RESCREENED PART OF OUR [employer]INE EXPLORATION ENGINEER PROGRAM.Satisfactory for evaluation. Endocervical and/or squamous metaplasticcells (endocervical component) are present.V72.31 ; Routine gynecological examinationPetra Griggs, Education And Development Manager (ASCP)Samia Parmar, Supervisory Education And Development Manager (ASCP) Source.............C ervical;EndocervicalLMP / Prev Treat...VZJ=[id number]. of containers..01 CYTYC Thin Prep VialPATIENT NOT FASTINGPERFORMED BY: [place] [employer] Fzpv1591 [facility] [id number] [place] [id number] Thin prep Pap ([id number]) PAPSMR Normal [facility] Work Phone: Comment on above: The Pap smear is a s creening test designed to aid in the detection ofpremalignant and malignant conditions of the uterine cervix. It is not adiagnostic procedure and should not be used as the sole means of detectingcervical cancer. Both false-positive and false-negative reports do occur. .The HPV DNA reflex criteria were not met with this specimen resulttherefore, no HPV testing was performed. . Source.............C ervical;EndocervicalLMP / Prev Treat...[id number]=[id number]. of containers..01 CYTYC Thin Prep VialPATIENT NOT FASTINGPERFORMED BY: KX [facility] Ajya7[address] [id number] BILAT DIAG DIGITAL & CADOrde red By: Photography Professor on 07-21-2007 BILAT DIAG DIGITAL & CAD See Note Normal [facility] Work Phone: Comment on above: Exam Number: [id number] BILATERAL DIAGNOSTIC DIGITAL MAMMOGRAM CLINICAL INFORMATIONAbnormal mammogram. Digital diagnostic images of the right and left breasts were obtainedbased upon findings on the study of July 13, 2007. First of all [...] Category 2 with 1-year followup. A letter regarding the results has been sent to the patient. This interpretation was rendered by a radiologist certified under theMammography Quality Standards Act of 1992 (MQSA). The mammograms werealso examined with computer-aided detection software ([employer], [employer].). Reported By: Ivy TREVIZON DIGITAL & CADOrde red By: Photography Professor on 07-13-2007 BILAT SCRN DIGITAL & CAD See Note Normal [facility] Work Phone: Comment on above: Exam Number: [id number] BILATERAL SCREENING DIGITAL MAMMOGRAM CLINICAL INFORMATIONScreening. Bilateral digital mammography was performed as a screening exam. Standard CC and MLO views were obtained. There [facility] a [facility] in issuing [facility] [place] [facility] That study was on[facility], [facility]. FINDINGSThe overall appearance of the breasts is unchanged with dense,heterogeneous parenchyma. No dominant masses are evident. In theleft breast superiorly in the MLO view there is a small asymmetricdensity likely merely fibroglandular tissue. Spot compression of thisis suggested. In the right breast there is a questionable group ofcalcifications for which magnification views are recommended. IMPRESSION1) The breasts are dense and heterogeneous which makes mammographydifficult. A small focal density in the left breast is seen and spot compression is recommended along with magnification views of calcifications in the right breast. 2) BIRADS 0-additional views. A letter regarding the results has been sent to the patient. This interpretation was rendered by a radiologist certified underthe Mammography Quality Standards Act of 1992 (MQSA). The mammogramswere also examined with computer-aided detection software([employer].). Reported By: DAYNA RUSSELL M.D. GLUOrdered By: System Manage r on 07-07-2007 Glucose mass conc 81 mg/dL Normal 70-110 Compreh ensive Internal Medicine Work Phone: LIPIDOrdered By: System Theresa pate on 07-07-2007 Cholesterol in HDL mass conc 43 mg/dL Normal [facility] Work Phone: Comment on above: Reference Range HDL <40 mg/dL Low HDL Cholesterol HDL >or= 60 mg/dL High HDL Cholesterol Cholesterol in LDL mass conc 104 mg/dL Normal 0-130 [facility] Work Phone: Cholesterol in VLDL mass conc 8 mg/dL Normal 5-40 [facility] Work Phone: Cholesterol mass conc 155 mg/dL Normal [facility] Work Phone: Comment on above: <200 mg/dL Desirable 200-240 mg/dL Borderline >240 mg/dL High Risk Triglyceride mass conc 42 mg/dL Normal [facility] Work Phone: Comment on above: Serum Triglycerides Reference Interval Normal <150 mg/dL Borderline high 150 - 199 mg/dL High 200 - 499 mg/dL Very High > or = 500 mg/dL Vital Signs Date Time Vital Sign Value Performing Clinician Facility 01-04-2025 07:25-0400 Body height 162.[address] Nehal Vu MD Work Phone: [facility] 01-04-2025 07:25-0400 Body mass index (BMI) [Ratio] 29.3 kg/m2 Dr. Nehal Vu MD Work Phone: [facility] 01-04-2025 07:25-0400 Body weight 77.[address] Nehal Vu MD Work Phone: [facility] 01-04-2025 07:25-0400 Diastolic blood pressure 70 mm[Hg] Dr. Nehal Vu MD Work Phone: [facility] 01-04-2025 07:25-0400 Heart rate 50 /min Dr. Nehal Vu MD Work Phone: [facility] 01-04-2025 07:25-0400 Respiratory rate 18 /min Dr. Nehal Vu MD Work Phone: [facility] 01-04-2025 07:25-0400 SaO2% (BldA) [Mass fraction] 94 % Dr. Nehal Vu MD Work Phone: [facility] 01-04-2025 07:25-0400 Systolic blood pressure 113 mm[Hg] Dr. Nehal Vu MD Work Phone: [facility] 12-21-2024 18:37-0400 Body temperature 98.3 [degF] Dr. Nehal Vu MD Work Phone: [facility] 12-21-2024 18:37-0400 Diastolic blood pressure 75 mm[Hg] Dr. Nehal Vu MD Work Phone: [facility] 12-21-2024 18:37-0400 Heart rate 53 /min Dr. Nehal Vu MD Work Phone: [facility] 12-21-2024 18:37-0400 Respiratory rate 16 /min Dr. Nehal Vu MD Work Phone: [facility] 12-21-2024 18:37-0400 SaO2% (BldA) [Mass fraction] 97 % Dr. Nehal Vu MD Work Phone: [facility] 12-21-2024 18:37-0400 Systolic blood pressure 119 mm[Hg] Dr. Nehal Vu MD Work Phone: [facility] 12-21-2024 18:25-0400 Inhaled oxygen flow rate 2 L/min Dr. Nehal Vu MD Work Phone: [facility] 12-21-2024 16:21-0400 Body height 162.[address] Nehal Vu MD Work Phone: [facility] 12-21-2024 16:21-0400 Body mass index (BMI) [Ratio] 29.9 kg/m2 Dr. Nehal Vu MD Work Phone: [facility] 12-21-2024 16:21-0400 Body weight [address] Nehal Vu MD Work Phone: [facility] 12-07-2022 14:47-0400 Body temperature 97.6 [degF] Nehal Vu MD Work Phone: [facility]; [facility] Work Phone: 12-07-2022 14:47-0400 Body weight 77.57 kg Nehal Vu MD Work Phone: [facility]; [facility] Work Phone: 12-07-2022 14:47-0400 Diastolic blood pressure 72 mm[Hg] Nehal Vu MD Work Phone: [facility]; [facility] Work Phone: 12-07-2022 14:47-0400 Heart rate 48 /min Nehal Vu MD Work Phone: [facility]; [facility] Work Phone: 12-07-2022 14:47-0400 SaO2% (BldA) [Mass fraction] 97 % Nehal Vu MD Work Phone: [facility]; [facility] Work Phone: 12-07-2022 14:47-0400 Systolic blood pressure 118 mm[Hg] Nehal Vu MD Work Phone: [facility]; [facility] Work Phone: 10-29-2022 08:42-0400 Body height 162.[address] Nehal Vu Work Phone: [facility] 10-29-2022 08:42-0400 Body mass index (BMI) [Ratio] 29.3 kg/m2 Dr. Nehal Vu Work Phone: [facility] 10-29-2022 08:42-0400 Body weight 77.[address] Nehal Vu Work Phone: [facility] 10-29-2022 08:42-0400 Diastolic blood pressure 70 mm[Hg] Dr. Nehal Vu Work Phone: [facility] 10-29-2022 08:42-0400 Heart rate 52 /min Dr. Nehal uV Work Phone: [facility] 10-29-2022 08:42-0400 Respiratory rate 18 /min Dr. Nehal Vu Work Phone: [facility] 10-29-2022 08:42-0400 SaO2% (BldA) [Mass fraction] 97 % Dr. Nehal Vu Work Phone: [facility] 07-20-2023 08:42-0400 Systolic blood pressure 112 mm[Hg] Dr. Nehal Vu Work Phone: [facility] 09-15-2022 08:40-0400 Body height 160.02 cm Teresa Lovett LPN [facility]; [facility] Work Phone: 09-15-2022 08:40-0400 Body mass index (BMI) [Ratio] 30.38 kg/m2 Teresa Lovett LPN [facility]; [facility] Work Phone: 09-15-2022 08:40-0400 Body surface area Derived from formula 1.81 m2 Teresa Lovett LPN [facility]; [facility] Work Phone: 09-15-2022 08:40-0400 Body temperature 98.1 [degF] Teresa Lovett LPN [facility]; [facility] Work Phone: 09-15-2022 08:40-0400 Body weight 77.79 kg Teresa Lovett LPN [facility]; [facility] Work Phone: 09-15-2022 08:40-0400 Diastolic blood pressure 62 mm[Hg] Teresa Lovett LPN [facility]; [facility] Work Phone: 09-15-2022 08:40-0400 Heart rate 64 /min Teresa Lovett LPN [facility]; [facility] Work Phone: 09-15-2022 08:40-0400 Respiratory rate 16 /min Teresa Lovett LPN [facility]; [facility] Work Phone: 09-15-2022 08:40-0400 SaO2% (BldA) [Mass fraction] 99 % Teresa Lovett LPN [facility]; [facility] Work Phone: 09-15-2022 08:40-0400 Systolic blood pressure 110 mm[Hg] Teresa Lovett LPN [facility]; [facility] Work Phone: 03-13-2022 07:40-0500 Body height 160.02 cm Nina [facility]strada [facility]; [facility] Work Phone: 03-13-2022 07:40-0500 Body mass index (BMI) [Ratio] 27.92 kg/m2 Nina Estrada [facility]; [facility] Work Phone: 03-13-2022 07:40-0500 Body surface area Derived from formula 1.75 m2 Nina Estrada [facility]; [facility] Work Phone: 03-13-2022 07:40-0500 Body temperature 97.8 [degF] Nina Estrada [facility]; [facility] Work Phone: Comment on above: Method: Thermal Scan 03-13-2022 07:40-0500 Body weight 71.49 kg Nina Estrada [facility]; [facility] Work Phone: 03-13-2022 07:40-0500 Diastolic blood pressure 68 mm[Hg] Nina Estrada [facility]; [facility] Work Phone: Comment on above: Patient Position: Sitting; Cuff Location : Left Arm; Cuff Size: Standard 03-13-2022 07:40-0500 Heart rate 50 /min Nina Estrada [facility]; [facility] Work Phone: Comment on above: Pattern: Regular 03-13-2022 07:40-0500 Respiratory rate 16 /min Nina Estrada [facility]; [facility] Work Phone: Comment on above: Pattern: Unlabored 03-13-2022 07:40-0500 SaO2% (BldA) [Mass fraction] 97 % Nina Estrada [facility]; [facility] Work Phone: Comment on above: Room air 03-13-2022 07:40-0500 Systolic blood pressure 116 mm[Hg] Nina Estrada [facility]; [facility] Work Phone: Comment on above: Patient Position: Sitting; Cuff Location : Left Arm; Cuff Size: Standard 12-12-2021 09:35-0400 Body height 160.02 cm Lee Sutton LPN [facility]; [facility] Work Phone: 12-12-2021 09:35-0400 Body mass index (BMI) [Ratio] 27.92 kg/m2 Lee Sutton LPN [facility]; [facility] Work Phone: 12-12-2021 09:35-0400 Body surface area Derived from formula 1.75 m2 Lee Sutton LPN [facility] Medicine; [facility] Work Phone: 12-12-2021 09:35-0400 Body temperature 97.8 [degF] Lee Sutton LPN [facility]; [facility] Work Phone: Comment on above: Method: Infrared 12-12-2021 09:35-0400 Body weight 71.49 kg Lee Sutton LPN [facility]; [facility] Work Phone: 12-12-2021 09:35-0400 Diastolic blood pressure 78 mm[Hg] Lee Sutton LPN [facility]; [facility] Work Phone: Comment on above: Patient Position: Sitting; Cuff Location : Left Arm; Cuff Size: Standard 12-12-2021 09:35-0400 Heart rate 59 /min Lee Sutton LPN [facility]; [facility] Work Phone: Comment on above: Pattern: Regular 12-12-2021 09:35-0400 Respiratory rate 16 /min Lee Sutton LPN [facility]; [facility] Work Phone: Comment on above: Pattern: Unlabored 12-12-2021 09:35-0400 SaO2% (BldA) [Mass fraction] 98 % Lee Sutton LPN [facility]; [facility] Work Phone: Comment on above: Room air 12-12-2021 09:35-0400 Systolic blood pressure 128 mm[Hg] Lee Sutton LPN [facility]; [facility] Work Phone: Comment on above: Patient Position: Sitting; Cuff Location : Left Arm; Cuff Size: Standard 10-10-2021 08:14-0400 Body height 160.02 cm Nina Estrada [facility]; [facility] Work Phone: 10-10-2021 08:14-0400 Body mass index (BMI) [Ratio] 28.52 kg/m2 Nina Estrada [facility]; [facility] Work Phone: 10-10-2021 08:14-0400 Body surface area Derived from formula 1.76 m2 Nina Estrada [facility]; [facility] Work Phone: 10-10-2021 08:14-0400 Body temperature 96.9 [degF] [facility]; [facility] Work Phone: Comment on above: Method: Thermal Scan 10-10-2021 08:14-0400 Body weight 73.03 kg Nina Estrada [facility]; [facility] Work Phone: 10-10-2021 08:14-0400 Diastolic blood pressure 62 mm[Hg] Nina Estrada [facility]; [facility] Work Phone: Comment on above: Patient Position: Sitting; Cuff Location : Left Arm; Cuff Size: Standard 10-10-2021 08:14-0400 Heart rate 53 /min Ninaana Estrada [facility]; [facility] Work Phone: Comment on above: Pattern: Regular 10-10-2021 08:14-0400 Respiratory rate 16 /min Nina Estrada [facility]; [facility] Work Phone: Comment on above: Pattern: Unlabored 10-10-2021 08:14-0400 Systolic blood pressure 100 mm[Hg] Nina Estrada [facility]; [facility] Work Phone: Comment on above: Patient Position: Sitting; Cuff Location : Left Arm; Cuff Size: Standard 09-16-2021 16:41-0400 Body height 160.02 cm Nehal Vu MD Work Phone: [facility]; [facility] Work Phone: 09-16-2021 16:41-0400 Body mass index (BMI) [Ratio] 30.11 kg/m2 Nehal Vu MD Work Phone: [facility]; [facility] Work Phone: 09-16-2021 16:41-0400 Body surface area Derived from formula 1.8 m2 Nehal Vu MD Work Phone: [facility]; [facility] Work Phone: 09-16-2021 16:41-0400 Body weight 77.11 kg Nehal Vu MD Work Phone: [facility]; [facility] Work Phone: 09-05-2021 13:40-0400 Body height 160.02 cm TIMMY Briceño LPN [facility]; [facility] Work Phone: 09-05-2021 13:40-0400 Body mass index (BMI) [Ratio] 29.41 kg/m2 TIMMY Briceño LPN [facility]; [facility] Work Phone: 09-05-2021 13:40-0400 Body surface area Derived from formula 1.79 m2 TIMMY Briceño LPN [facility]; [facility] Work Phone: 09-05-2021 13:40-0400 Body temperature 97.9 [degF] TIMMY Briceño LPN [facility]; [facility] Work Phone: Comment on above: Method: Temporal 09-05-2021 13:40-0400 Body weight 75.3 kg TIMMY Briceño LPN [facility]; [facility] Work Phone: 09-05-2021 13:40-0400 Diastolic blood pressure 64 mm[Hg] TIMMY Briceño LPN [facility]; [facility] Work Phone: Comment on above: Patient Position: Sitting; Cuff Location : Left Arm; Cuff Size: Standard 09-05-2021 13:40-0400 Heart rate 74 /min TIMMY Briceño LPN [facility]; [facility] Work Phone: Comment on above: Pattern: Regular 09-05-2021 13:40-0400 Respiratory rate 20 /min TIMMY Briceño G[facility]; [facility] Work Phone: Comment on above: Pattern: Unlabored 09-05-2021 13:40-0400 SaO2% (BldA) [Mass fraction] 98 % TIMMY Briceño [facility]; [facility] Work Phone: Comment on above: Room air 09-05-2021 13:40-0400 Systolic blood pressure 114 mm[Hg] TIMMY Briceño MACHINE PACKAGING TECHNICIAN [facility]; [facility] Work Phone: Comment on above: Patient Position: Sitting; Cuff Location : Left Arm; Cuff Size: Standard 07-04-2021 13:42-0400 Body height 162.[address] Nehal Vu Work Phone: [facility] Work Phone: 07-04-2021 13:42-0400 Body mass index (BMI) [Ratio] 28.1 kg/m2 Dr. Nehal Vu Work Phone: [facility] Work Phone: 07-04-2021 13:42-0400 Body weight 74.[address] Nehal Vu Work Phone: [facility] Work Phone: 07-04-2021 13:42-0400 Diastolic blood pressure 76 mm[Hg] Dr. Nehal Vu Work Phone: [facility] Work Phone: 07-04-2021 13:42-0400 Heart rate 54 /min Dr. Nehal Vu Work Phone: [facility] Work Phone: 07-04-2021 13:42-0400 Respiratory rate 18 /min Dr. Nehal Vu Work Phone: [facility] Work Phone: 07-04-2021 13:42-0400 SaO2% (BldA) [Mass fraction] 99 % Dr. Nehal Vu Work Phone: [facility] Work Phone: 07-04-2021 13:42-0400 Systolic blood pressure 124 mm[Hg] Dr. Nehal Vu Work Phone: [facility] Work Phone: 04-15-2021 11:51-0500 Diastolic blood pressure 57 mm[Hg] Nehal Vu MD Work Phone: [facility]; [facility] Work Phone: Comment on above: Patient Position: Sitting 04-15-2021 11:51-0500 Heart rate 97 /min Nehal Vu MD Work Phone: [facility]; [facility] Work Phone: Comment on above: Pattern: Regular 04-15-2021 11:51-0500 Systolic blood pressure 109 mm[Hg] Nehal Vu MD Work Phone: [facility]; [facility] Work Phone: Comment on above: Patient Position: Sitting 02-14-2021 09:10-0400 Diastolic blood pressure 68 mm[Hg] Nehal Vu MD Work Phone: [facility]; [facility] Work Phone: Comment on above: Patient Position: Sitting 02-14-2021 09:10-0400 Heart rate 58 /min Nehal Vu MD Work Phone: [facility]; [facility] Work Phone: Comment on above: Pattern: Regular 02-14-2021 09:10-0400 Respiratory rate 18 /min Nehal Vu MD Work Phone: [facility]; [facility] Work Phone: 02-14-2021 09:10-0400 SaO2% (BldA) [Mass fraction] 98 % Nehal Vu MD Work Phone: [facility]; [facility] Work Phone: Comment on above: Room air 02-14-2021 09:10-0400 Systolic blood pressure 114 mm[Hg] Nehal Vu MD Work Phone: [facility]; [facility] Work Phone: Comment on above: Patient Position: Sitting 12-27-2020 07:41-0400 Body height 160.02 cm TIMMY Briceño LPN [facility]; [facility] Work Phone: 12-27-2020 07:41-0400 Body mass index (BMI) [Ratio] 26.93 kg/m2 TIMMY Briceño LPN [facility]; [facility] Work Phone: 12-27-2020 07:41-0400 Body surface area Derived from formula 1.72 m2 TIMMY Briceño LPN [facility]; [facility] Work Phone: 12-27-2020 07:41-0400 Body temperature 97.9 [degF] TIMMY Briceño LPN [facility]; [facility] Work Phone: Comment on above: Method: Temporal 12-27-2020 07:41-0400 Body weight 68.95 kg TIMMYTAISA Briceño LPN [facility]; [facility] Work Phone: 12-27-2020 07:41-0400 Diastolic blood pressure 70 mm[Hg] TIMMY Briceño LPN [facility]; [facility] Work Phone: Comment on above: Patient Position: Sitting; Cuff Location : Left Arm; Cuff Size: Standard 12-27-2020 07:41-0400 Heart rate 64 /min TIMMY Briceño LPN [facility]; [facility] Work Phone: Comment on above: Pattern: Regular 12-27-2020 07:41-0400 Respiratory rate 20 /min TIMMY Briceño LPN [facility]; [facility] Work Phone: Comment on above: Pattern: Unlabored 12-27-2020 07:41-0400 SaO2% (BldA) [Mass fraction] 98 % TIMMY Briceño MACHINE PACKAGING TECHNICIAN [facility]; [facility] Work Phone: Comment on above: Room air 12-27-2020 07:41-0400 Systolic blood pressure 114 mm[Hg] TIMMY Briceño LPN [facility]; [facility] Work Phone: Comment on above: Patient Position: Sitting; Cuff Location : Left Arm; Cuff Size: Standard 10-25-2020 07:03-0400 Body height 160.02 cm TIMMY Briceño G[facility]; [facility] Work Phone: 10-25-2020 07:03-0400 Body mass index (BMI) [Ratio] 27.1 kg/m2 TIMMY Briceño [facility]; [facility] Work Phone: 10-25-2020 07:03-0400 Body surface area Derived from formula 1.73 m2 TIMMY Briceño G[facility]U [facility]; [facility] Work Phone: 10-25-2020 07:03-0400 Body temperature 97.9 [degF] TIMMY Briceño MACHINE PACKAGING TECHNICIAN [facility]; [facility] Work Phone: Comment on above: Method: Temporal 10-25-2020 07:03-0400 Body weight 69.4 kg TIMMY Briceño MACHINE PACKAGING TECHNICIAN [facility]; [facility] Work Phone: 10-25-2020 07:03-0400 Diastolic blood pressure 68 mm[Hg] TIMMY Briceño G[facility]; [facility] Work Phone: Comment on above: Patient Position: Sitting; Cuff Location : Left Arm; Cuff Size: Standard 10-25-2020 07:03-0400 Heart rate 74 /min TIMMY Briceño [facility]; [facility] Work Phone: Comment on above: Pattern: Regular 10-25-2020 07:03-0400 Respiratory rate 18 /min TIMMY Briceño [facility]; [facility] Work Phone: Comment on above: Pattern: Unlabored 10-25-2020 07:03-0400 SaO2% (BldA) [Mass fraction] 98 % TIMMY Briceño LPN [facility]; [facility] Work Phone: Comment on above: Room air 10-25-2020 07:03-0400 Systolic blood pressure 104 mm[Hg] TIMMY Briceño LPN [facility]; [facility] Work Phone: Comment on above: Patient Position: Sitting; Cuff Location : Left Arm; Cuff Size: Standard 07-30-2020 08:51-0400 Diastolic blood pressure 62 mm[Hg] Nehal Vu MD Work Phone: [facility]; [facility] Work Phone: Comment on above: Patient Position: Sitting 07-30-2020 08:51-0400 Heart rate 53 /min Nehal Vu MD Work Phone: [facility]; [facility] Work Phone: Comment on above: Pattern: Regular 07-30-2020 08:51-0400 Systolic blood pressure 100 mm[Hg] Nehal Vu MD Work Phone: [facility]; [facility] Work Phone: Comment on above: Patient Position: Sitting 07-23-2020 14:01-0400 Body Temperature 98.4 [degF] [facility] 07-23-2020 14:01-0400 Body weight 69.4 kg [facility] 07-23-2020 14:01-0400 BP Diastolic 48 mm[Hg] [facility] 07-23-2020 14:01-0400 BP Systolic 114 mm[Hg] [facility] 07-23-2020 14:01-0400 Height 162.6 cm [facility] 07-23-2020 14:01-0400 Pulse (Heart Rate) 53 /min [facility] 04-19-2020 09:26-0500 BMI (Body Mass Index) 26.22 kg/m2 Nina Estrada CMA [facility]; [facility] Work Phone: 04-19-2020 09:26-0500 Body Temperature 97.1 [degF] Nina Estrada [facility]; [facility] Work Phone: Comment on above: Method: Thermal Scan 04-19-2020 09:26-0500 Body weight 67.15 kg Nina Estrada [facility]; [facility] Work Phone: 04-19-2020 09:26-0500 BP Diastolic 60 mm[Hg] Nina Estrada [facility]; [facility] Work Phone: Comment on above: Patient Position: Sitting; Cuff Location : Left Arm; Cuff Size: Standard 04-19-2020 09:26-0500 BP Systolic 114 mm[Hg] Nina Estrada [facility]; [facility] Work Phone: Comment on above: Patient Position: Sitting; Cuff Location : Left Arm; Cuff Size: Standard 04-19-2020 09:26-0500 BSA (Body Surface Area) 1.7 m2 Nina Estrada [facility]; [facility] Work Phone: 04-19-2020 09:26-0500 Height 160.02 cm Nina Estrada [facility]; [facility] Work Phone: 04-19-2020 09:26-0500 Pulse (Heart Rate) 53 /min [facility]; [facility] Work Phone: Comment on above: Pattern: Regular 04-19-2020 09:26-0500 Pulse Oximetry 98 % Nehal Vu [facility]; [facility] Work Phone: Comment on above: Room air 04-19-2020 09:26-0500 Respiratory Rate 16 /min Ninaana Estrada [facility]; [facility] Work Phone: Comment on above: Pattern: Unlabored 04-19-2020 09:26-0500 SaO2% (BldA) [Mass fraction] 98 % [facility]; [facility] Work Phone: Comment on above: Room air 12-15-2019 06:35-0400 BMI (Body Mass Index) 24.63 kg/m2 TIMMY Briceño LPN [facility] Work Phone: 12-15-2019 06:35-0400 Body Temperature 97.1 [degF] TIMMY Briceño MACHINE PACKAGING TECHNICIAN [facility] Work Phone: Comment on above: Method: Temporal 12-15-2019 06:35-0400 Body weight 63.07 kg TIMMY Briceño MACHINE PACKAGING TECHNICIAN [facility] Work Phone: 12-15-2019 06:35-0400 BP Diastolic 62 mm[Hg] TIMMY Briceño MACHINE PACKAGING TECHNICIAN [facility] Work Phone: Comment on above: Patient Position: Sitting; Cuff Location : Left Arm; Cuff Size: Standard 12-15-2019 06:35-0400 BP Systolic 100 mm[Hg] TIMMY Briceño MACHINE PACKAGING TECHNICIAN [facility] Work Phone: Comment on above: Patient Position: Sitting; Cuff Location : Left Arm; Cuff Size: Standard 12-15-2019 06:35-0400 BSA (Body Surface Area) 1.66 m2 TIMMY Briceño MACHINE PACKAGING TECHNICIAN [facility] Work Phone: 12-15-2019 06:35-0400 Height 160.02 cm TIMMY Briceño MACHINE PACKAGING TECHNICIAN [facility] Work Phone: 12-15-2019 06:35-0400 Pulse (Heart Rate) 52 /min TIMMY Briceño MACHINE PACKAGING TECHNICIAN [facility] Work Phone: Comment on above: Pattern: Regular 12-15-2019 06:35-0400 Pulse Oximetry 98 % Nehal Vu [facility] Work Phone: Comment on above: Room air 12-15-2019 06:35-0400 Respiratory Rate 20 /min TIMMY Briceño MACHINE PACKAGING TECHNICIAN [facility] Work Phone: Comment on above: Pattern: Unlabored 12-15-2019 06:35-0400 SaO2% (BldA) [Mass fraction] 98 % TIMMY Navarro MACHINE PACKAGING TECHNICIAN [facility]; [facility] Work Phone: Comment on above: Room air 03-28-2019 15:31-0500 BMI (Body Mass Index) 25.15 kg/m2 Nina Estrada [facility] Work Phone: 03-28-2019 15:31-0500 Body Temperature 98.1 [degF] Nina Estrada [facility] Work Phone: Comment on above: Method: Temporal 03-28-2019 15:31-0500 Body weight 64.41 kg Nina Estrada [facility] Work Phone: 03-28-2019 15:31-0500 BP Diastolic 60 mm[Hg] Nina Estrada [facility] Work Phone: Comment on above: Patient Position: Sitting; Cuff Location : Left Arm; Cuff Size: Standard 03-28-2019 15:31-0500 BP Systolic 108 mm[Hg] Nina Estrada [facility] Work Phone: Comment on above: Patient Position: Sitting; Cuff Location : Left Arm; Cuff Size: Standard 03-28-2019 15:31-0500 BSA (Body Surface Area) 1.67 m2 Nina Estrada [facility] Work Phone: 03-28-2019 15:31-0500 Height 160.02 cm Nina Estrada [facility] Work Phone: 03-28-2019 15:31-0500 Pulse (Heart Rate) 50 /min Nina Estrada [facility] Work Phone: Comment on above: Pattern: Regular 03-28-2019 15:31-0500 Respiratory Rate 16 /min Nina Estrada [facility] Work Phone: Comment on above: Pattern: Unlabored 11-18-2018 07:58-0400 BMI (Body Mass Index) 24.62 kg/m2 Shannonaudrey Elkins [facility] Work Phone: 11-18-2018 07:58-0400 Body Temperature 97.9 [degF] Shannon Elkins [facility] Work Phone: Comment on above: Method: Temporal 11-18-2018 07:58-0400 Body weight 63.05 kg Shannon Elkins [facility] Work Phone: 11-18-2018 07:58-0400 BP Diastolic 78 mm[Hg] Shannon Elkins [facility] Work Phone: Comment on above: Patient Position: Sitting; Cuff Location : Left Arm; Cuff Size: Standard 11-18-2018 07:58-0400 BP Systolic 118 mm[Hg] Shannon Elkins [facility] Work Phone: Comment on above: Patient Position: Sitting; Cuff Location : Left Arm; Cuff Size: Standard 11-18-2018 07:58-0400 BSA (Body Surface Area) 1.66 m2 Shannon Elkins [facility] Work Phone: 11-18-2018 07:58-0400 Height 160.02 cm Shannon Elkins [facility] Work Phone: 11-18-2018 07:58-0400 Pulse (Heart Rate) 64 /min Shannon Elkins [facility] Work Phone: Comment on above: Pattern: Regular 11-18-2018 07:58-0400 Pulse Oximetry 96 % Nehal Vu [facility] Work Phone: Comment on above: Room air 11-18-2018 07:58-0400 Respiratory Rate 18 /min Shannon Elkins [facility] Work Phone: Comment on above: Pattern: Unlabored 11-18-2018 07:58-0400 SaO2% (BldA) [Mass fraction] 96 % Shannon Elkins [facility]; [facility] Work Phone: Comment on above: Room air 09-20-2018 14:52-0400 BMI (Body Mass Index) 24.62 kg/m2 Nina Jainesau [facility] Work Phone: 09-20-2018 14:52-0400 Body Temperature 98.8 [degF] Nina Natalie [facility] Work Phone: Comment on above: Method: Temporal 09-20-2018 14:52-0400 Body weight 63.05 kg Nina Estrada [facility] Work Phone: 09-20-2018 14:52-0400 BP Diastolic 60 mm[Hg] Nina Estrada [facility] Work Phone: Comment on above: Patient Position: Sitting; Cuff Location : Left Arm; Cuff Size: Standard 09-20-2018 14:52-0400 BP Systolic 100 mm[Hg] Nina Estrada [facility] Work Phone: Comment on above: Patient Position: Sitting; Cuff Location : Left Arm; Cuff Size: Standard 09-20-2018 14:52-0400 BSA (Body Surface Area) 1.66 m2 Nina Estrada [facility] Work Phone: 09-20-2018 14:52-0400 Height 160.02 cm Nina Estrada [facility] Work Phone: 09-20-2018 14:52-0400 Pulse (Heart Rate) 57 /min Nina Estrada [facility] Work Phone: Comment on above: Pattern: Regular 09-20-2018 14:52-0400 Pulse Oximetry 98 % Nehal Vu [facility] Work Phone: Comment on above: Room air 09-20-2018 14:52-0400 Respiratory Rate 16 /min Nina Estrada [facility] Work Phone: Comment on above: Pattern: Unlabored 09-20-2018 14:52-0400 SaO2% (BldA) [Mass fraction] 98 % Nina Estrada [facility]; [facility] Work Phone: Comment on above: Room air 09-20-2018 14:52-0400 Weight 63.05 kg Nehal Vu [facility] Work Phone: 06-08-2018 10:06-0500 BMI (Body Mass Index) 23.91 kg/m2 Nina Estrada [facility] Work Phone: 06-08-2018 10:06-0500 Body Temperature 96.4 [degF] Nina Estrada [facility] Work Phone: Comment on above: Method: Temporal 06-08-2018 10:06-0500 Body weight 61.24 kg Nina Estrada [facility] Work Phone: 06-08-2018 10:06-0500 BP Diastolic 62 mm[Hg] Nina Estrada [facility] Work Phone: Comment on above: Patient Position: Sitting; Cuff Location : Left Arm; Cuff Size: Standard 06-08-2018 10:06-0500 BP Systolic 100 mm[Hg] Nina Estrada [facility] Work Phone: Comment on above: Patient Position: Sitting; Cuff Location : Left Arm; Cuff Size: Standard 06-08-2018 10:06-0500 BSA (Body Surface Area) 1.64 m2 Nina Estrada [facility] Work Phone: 06-08-2018 10:06-0500 Height 160.02 cm Nina Estrada [facility] Work Phone: 06-08-2018 10:06-0500 Pulse (Heart Rate) 57 /min Nina Estrada [facility] Work Phone: Comment on above: Pattern: Regular 06-08-2018 10:06-0500 Pulse [facility]ximetry 98 % [facility] Work Phone: Comment on above: Room air 06-08-2018 10:06-0500 Respiratory Rate 16 /min Nina Estrada [facility] Work Phone: Comment on above: Pattern: Unlabored 06-08-2018 10:06-0500 SaO2% (BldA) [Mass fraction] 98 % Nina Estrada [facility]; [facility] Work Phone: Comment on above: Room air 06-08-2018 10:06-0500 Weight 61.24 kg Nehal Vu [facility] Work Phone: 03-15-2018 16:22-0500 BMI (Body Mass Index) 23.91 kg/m2 TIMMY Briceño LPN [facility] Internal Medicine Work Phone: 03-15-2018 16:22-0500 Body Temperature 97.6 [degF] TIMMY Briceño LPN [facility] Work Phone: Comment on above: Method: Temporal 03-15-2018 16:22-0500 Body weight 61.24 kg TIMMY Briceño LPN [facility] Internal Medicine Work Phone: 03-15-2018 16:22-0500 BP Diastolic 60 mm[Hg] TIMMY Briceño LPN [facility] Internal Medicine Work Phone: Comment on above: Patient Position: Sitting; Cuff Location : Left Arm; Cuff Size: Standard 03-15-2018 16:22-0500 BP Systolic 90 mm[Hg] TIMMY Briceño LPN [facility] Internal Medicine Work Phone: Comment on above: Patient Position: Sitting; Cuff Location : Left Arm; Cuff Size: Standard 03-15-2018 16:22-0500 BSA (Body Surface Area) 1.64 m2 TIMMY Briceño LPN [facility] Work Phone: 03-15-2018 16:22-0500 Height 160.02 cm TIMMY Briceño LPN [facility] Internal Medicine Work Phone: 03-15-2018 16:22-0500 Pulse (Heart Rate) 56 /min TIMMY Briceño LPN [facility] Work Phone: Comment on above: Pattern: Regular 03-15-2018 16:22-0500 Pulse Oximetry 99 % Nehal Vu [facility] Internal Medicine Work Phone: Comment on above: Room air 03-15-2018 16:22-0500 Respiratory Rate 20 /min TIMMY Briceño LPN [facility] Internal Medicine Work Phone: Comment on above: Pattern: Unlabored 03-15-2018 16:22-0500 SaO2% (BldA) [Mass fraction] 99 % TIMMY Briceño LPN [facility]; [facility] Work Phone: Comment on above: Room air 03-15-2018 16:22-0500 Weight 61.24 kg Nehal Vu [facility] Internal Medicine Work Phone: 02-08-2018 15:21-0400 BMI (Body Mass Index) 23.91 kg/m2 Nina Estrada [facility] Internal Medicine Work Phone: 02-08-2018 15:21-0400 Body Temperature 97.6 [degF] Nina Estrada [facility] Internal Medicine Work Phone: Comment on above: Method: Temporal 02-08-2018 15:-0400 Body weight 61.24 kg Nina Estrada [facility] Internal Medicine Work Phone: 02-08-2018 15:21-0400 BP Diastolic 68 mm[Hg] Nina Estrada [facility] Internal Medicine Work Phone: Comment on above: Patient Position: Sitting; Cuff Location : Left Arm; Cuff Size: Standard 02-08-2018 15:21-0400 BP Systolic 106 mm[Hg] Nina Estrada [facility] Internal Medicine Work Phone: Comment on above: Patient Position: Sitting; Cuff Location : Left Arm; Cuff Size: Standard 02-08-2018 15:21-0400 BSA (Body Surface Area) 1.64 m2 Nina Estrada [facility] Internal Medicine Work Phone: 02-08-2018 15:21-0400 Height 160.02 cm Nina Estrada [facility] Internal Medicine Work Phone: 02-08-2018 15:21-0400 Pulse (Heart Rate) 64 /min Nina Estrada [facility] Internal Medicine Work Phone: Comment on above: Pattern: Regular 02-08-2018 15:21-0400 Pulse Oximetry 98 % Nehal Vu [facility] Internal Medicine Work Phone: Comment on above: Room air 02-08-2018 15:21-0400 Respiratory Rate 16 /min Nina Estrada [facility] Internal Medicine Work Phone: Comment on above: Pattern: Unlabored 02-08-2018 15:21-0400 SaO2% (BldA) [Mass fraction] 98 % Nina Estrada [facility]; [facility] Work Phone: Comment on above: Room air 02-08-2018 15:21-0400 Weight 61.24 kg Nehal Vu [facility] Work Phone: 02-03-2018 07:12-0400 Body Temperature 98.9 [degF] Nehal Vu MD Work Phone: [facility] Work Phone: Comment on above: Method: Oral 02-03-2018 07:12-0400 BP Diastolic 68 mm[Hg] Nehal Vu MD Work Phone: [facility] Work Phone: Comment on above: Patient Position: Sitting 02-03-2018 07:12-0400 BP Systolic 118 mm[Hg] Nehal Vu MD Work Phone: [facility] Work Phone: Comment on above: Patient Position: Sitting 02-03-2018 07:12-0400 Pulse (Heart Rate) 56 /min Nehal Vu MD Work Phone: [facility] Work Phone: Comment on above: Pattern: Regular 02-03-2018 07:12-0400 Pulse Oximetry 99 % Nehal Vu [facility] Work Phone: Comment on above: Room air 02-03-2018 07:12-0400 Respiratory Rate 18 /min Nehal Vu MD Work Phone: [facility] Work Phone: 02-03-2018 07:12-0400 SaO2% (BldA) [Mass fraction] 99 % Nehal Vu MD Work Phone: [facility]; [facility] Work Phone: Comment on above: Room air 05-25-2017 13:25-0500 BMI (Body Mass Index) 23.21 kg/m2 TIMMY Briceño LPN [facility] Work Phone: 05-25-2017 13:25-0500 Body Temperature 97.8 [degF] TIMMY Briceño LPN [facility] Work Phone: Comment on above: Method: Temporal 05-25-2017 13:25-0500 Body weight 59.42 kg TIMMY Briceño LPN [facility] Internal Medicine Work Phone: 05-25-2017 13:25-0500 BP Diastolic 70 mm[Hg] TIMMY Briceño LPN [facility] Work Phone: Comment on above: Patient Position: Sitting; Cuff Location : Left Arm; Cuff Size: Standard 05-25-2017 13:25-0500 BP Systolic 104 mm[Hg] TIMMY Briceño LPN [facility] Internal Medicine Work Phone: Comment on above: Patient Position: Sitting; Cuff Location : Left Arm; Cuff Size: Standard 05-25-2017 13:25-0500 BSA (Body Surface Area) 1.62 m2 TIMMY Briceño LPN [facility] Work Phone: 05-25-2017 13:25-0500 Height 160.02 cm TIMMY Briceño LPN [facility] Work Phone: 05-25-2017 13:25-0500 Pulse (Heart Rate) 70 /min TIMMY Briceño LPN [facility] Internal Medicine Work Phone: Comment on above: Pattern: Regular 05-25-2017 13:25-0500 Pulse Oximetry 97 % [facility] Work Phone: Comment on above: Room air 05-25-2017 13:25-0500 Respiratory Rate 20 /min TIMMY Briceño LPN [facility] Work Phone: Comment on above: Pattern: Unlabored 05-25-2017 13:25-0500 SaO2% (BldA) [Mass fraction] 97 % TIMMY Briceño LPN [facility] Internal Medicine; [facility] Work Phone: Comment on above: Room air 05-25-2017 13:25-0500 Weight 59.42 kg Nehal Vu [facility] Internal Medicine Work Phone: 01-12-2017 10:01-0400 BMI (Body Mass Index) 24.09 kg/m2 TIMMY Briceño LPN [facility] Internal Medicine Work Phone: 01-12-2017 10:01-0400 Body Temperature 97.6 [degF] TIMMY Briceño LPN [facility] Internal Medicine Work Phone: Comment on above: Method: Temporal 01-12-2017 10:040 Body weight 61.69 kg TIMMY Briceño LPN [facility] Internal Medicine Work Phone: 01-12-2017 10:01-0400 BP Diastolic 60 mm[Hg] TIMMY Briceño LPN [facility] Internal Medicine Work Phone: Comment on above: Patient Position: Sitting; Cuff Location : Left Arm; Cuff Size: Standard 01-12-2017 10:01-0400 BP Systolic 108 mm[Hg] TIMMY Briceño LPN [facility] Internal Medicine Work Phone: Comment on above: Patient Position: Sitting; Cuff Location : Left Arm; Cuff Size: Standard 01-12-2017 10:01-0400 BSA (Body Surface Area) 1.64 m2 TIMMY Briceño LPN [facility] Internal Medicine Work Phone: 01-12-2017 10:-0400 Height 160.02 cm TIMMY Briceño LPN [facility] Internal Medicine Work Phone: 01-12-2017 10:01-0400 Pulse (Heart Rate) 54 /min TIMMY Briceño LPN [facility] Internal Medicine Work Phone: Comment on above: Pattern: Regular 01-12-2017 10:01-0400 Pulse Oximetry 98 % Nehal Vu [facility] Internal Medicine Work Phone: Comment on above: Room air 01-12-2017 10:01-0400 Respiratory Rate 18 /min TIMMY Briceño LPN [facility] Internal Medicine Work Phone: Comment on above: Pattern: Unlabored 01-12-2017 10:01-0400 SaO2% (BldA) [Mass fraction] 98 % TIMMY Briceño LPN [facility]; [facility] Work Phone: Comment on above: Room air 01-12-2017 10:010400 Weight 61.69 kg Nehal Vu [facility] Internal Medicine Work Phone: 11-03-2016 09:23-0400 BMI (Body Mass Index) 25.24 kg/m2 Nehal Vu [facility] Internal Medicine Work Phone: 11-03-2016 09:23-0400 Body weight 64.64 kg Nehal Vu [facility] Internal Medicine Work Phone: 11-03-2016 09:23-0400 BSA (Body Surface Area) 1.67 m2 Nehal Vu [facility] Internal Medicine Work Phone: 11-03-2016 09:230400 Height 160.02 cm [facility] Work Phone: 11-03-2016 09:23-0400 Weight 64.64 kg Nehal Vu [facility] Internal Medicine Work Phone: 09-08-2016 15:18-0400 BMI (Body Mass Index) 26.57 kg/m2 [facility]ice[facility] Work Phone: 09-08-2016 15:18-0400 Body Temperature 97 [degF] TIMMY Briceño [facility] Internal Medicine Work Phone: Comment on above: Method: Temporal 09-08-2016 15:18-0400 Body weight 68.04 kg TIMMY Briceño [facility] Internal Medicine Work Phone: 09-08-2016 15:18-0400 BP Diastolic 74 mm[Hg] TIMMY Briceño [facility] Internal Medicine Work Phone: Comment on above: Patient Position: Sitting; Cuff Location : Left Arm; Cuff Size: Standard 09-08-2016 15:18-0400 BP Systolic 114 mm[Hg] TIMMY Briceño [facility] Internal Medicine Work Phone: Comment on above: Patient Position: Sitting; Cuff Location : Left Arm; Cuff Size: Standard 09-08-2016 15:18-0400 BSA (Body Surface Area) 1.71 m2 TIMMY [facility]iceño [facility] Work Phone: 09-08-2016 15:18-0400 Height 160.02 cm TIMMY Briceño LPN [facility] Work Phone: 09-08-2016 15:18-0400 Pulse (Heart Rate) 62 /min TIMMY Briceño LPN [facility] Work Phone: Comment on above: Pattern: Regular 09-08-2016 15:18-0400 Pulse Oximetry 98 % Nehal Vu [facility] Internal Medicine Work Phone: Comment on above: Room air 09-08-2016 15:18-0400 Respiratory Rate 20 /min TIMMY Briceño LPN [facility] Work Phone: Comment on above: Pattern: Unlabored 09-08-2016 15:18-0400 SaO2% (BldA) [Mass fraction] 98 % TIMMY Briceño LPN [facility]; [facility] Work Phone: Comment on above: Room air 09-08-2016 15:18-0400 Weight 68.04 kg Nehal Vu [facility] Internal Medicine Work Phone: 05-05-2016 13:28-0500 BMI (Body Mass Index) 29.94 kg/m2 TIMMY Briceño LPN [facility] Work Phone: 05-05-2016 13:28-0500 Body Temperature 97.6 [degF] TIMMY Briceño LPN [facility] Work Phone: Comment on above: Method: Temporal 05-05-2016 13:28-0500 Body weight 76.66 kg TIMMY Briceño LPN [facility] Work Phone: 05-05-2016 13:28-0500 BP Diastolic 64 mm[Hg] TIMMY Briceño LPN [facility] Work Phone: Comment on above: Patient Position: Sitting; Cuff Location : Left Arm; Cuff Size: Standard 05-05-2016 13:28-0500 BP Systolic 104 mm[Hg] TIMMY Briceño LPN [facility] Work Phone: Comment on above: Patient Position: Sitting; Cuff Location : Left Arm; Cuff Size: Standard 05-05-2016 13:28-0500 BSA (Body Surface Area) 1.8 m2 TIMMY Briceño LPN [facility] Internal Medicine Work Phone: 05-05-2016 13:28-0500 Height 160.02 cm TIMMY Briceño LPN [facility] Internal Medicine Work Phone: 05-05-2016 13:28-0500 Pulse (Heart Rate) 58 /min TIMMY Briceño LPN [facility] Internal Medicine Work Phone: Comment on above: Pattern: Regular 05-05-2016 13:28-0500 Pulse Oximetry 98 % Nehal Vu [facility] Internal Medicine Work Phone: Comment on above: Room air 05-05-2016 13:28-0500 Respiratory Rate 20 /min TIMMY Briceño LPN [facility] Internal Medicine Work Phone: Comment on above: Pattern: Unlabored 05-05-2016 13:28-0500 SaO2% (BldA) [Mass fraction] 98 % TIMMY Briceño GURU [facility] Internal Medicine; [facility] Work Phone: Comment on above: Room air 05-05-2016 13:28-0500 Weight 76.66 kg Nehal Vu [facility] Internal Medicine Work Phone: 07-23-2015 11:23-0400 BMI (Body Mass Index) 29.58 kg/m2 Lia Johnson [facility] Internal Medicine Work Phone: 07-23-2015 11:23-0400 Body Temperature 96.6 [degF] Lia Johnson [facility] Internal Medicine Work Phone: Comment on above: Method: Temporal 07-23-2015 11:23-0400 Body weight 75.75 kg Lia Johnson [facility] Internal Medicine Work Phone: 07-23-2015 11:23-0400 BP Diastolic 70 mm[Hg] Lia Johnson [facility] Internal Medicine Work Phone: Comment on above: Patient Position: Sitting; Cuff Location : Left Arm; Cuff Size: Standard 07-23-2015 11:23-0400 BP Systolic 116 mm[Hg] Lia Johnson [facility] Internal Medicine Work Phone: Comment on above: Patient Position: Sitting; Cuff Location : Left Arm; Cuff Size: Standard 07-23-2015 11:23-0400 BSA (Body Surface Area) 1.79 m2 Lia Elizabeth [facility] Internal Medicine Work Phone: 07-23-2015 11:23-0400 Height 160.02 cm Lia Elizabeth [facility] Internal Medicine Work Phone: 07-23-2015 11:23-0400 Pulse (Heart Rate) 63 /min [facility] Work Phone: Comment on above: Pattern: Regular 07-23-2015 11:23-0400 Pulse Oximetry 98 % Nehal Horace [facility] Internal Medicine Work Phone: Comment on above: Room air 07-23-2015 11:23-0400 Respiratory Rate 15 /min Lia Johnson [facility] Internal Medicine Work Phone: Comment on above: Pattern: Unlabored 07-23-2015 11:23-0400 SaO2% (BldA) [Mass fraction] 98 % Lia Elizabeth [facility] Internal Medicine; [facility] Internal Medicine Work Phone: Comment on above: Room air 07-23-2015 11:23-0400 Weight 75.75 kg Nehal Horace [facility] Internal Medicine Work Phone: 06-18-2015 09:19-0500 BMI (Body Mass Index) 29.94 kg/m2 TIMMY Briceño LPN [facility] Internal Medicine Work Phone: 06-18-2015 09:19-0500 Body Temperature 97.6 [degF] TIMMY Briceño LPN [facility] Internal Medicine Work Phone: Comment on above: Method: Temporal 06-18-2015 09:19-0500 Body weight 76.66 kg TIMMY Briceño LPN [facility] Internal Medicine Work Phone: 06-18-2015 09:19-0500 BP Diastolic 70 mm[Hg] TIMMY Briceño LPN [facility] Internal Medicine Work Phone: Comment on above: Patient Position: Sitting; Cuff Location : Left Arm; Cuff Size: Standard 06-18-2015 09:19-0500 BP Systolic 110 mm[Hg] TIMMY Navarro GARVEY [facility] Internal Medicine Work Phone: Comment on above: Patient Position: Sitting; Cuff Location : Left Arm; Cuff Size: Standard 06-18-2015 09:19-0500 BSA (Body Surface Area) 1.8 m2 TIMMY Navarro GARVEY [facility] Internal Medicine Work Phone: 06-18-2015 09:19-0500 Height 160.02 cm TIMMY Briceño LPN [facility] Internal Medicine Work Phone: 06-18-2015 09:19-0500 Pulse (Heart Rate) 68 /min TIMMY Navarro GARVEY [facility] Internal Medicine Work Phone: Comment on above: Pattern: Regular 06-18-2015 09:19-0500 Pulse Oximetry 97 % Nehal Vu [facility] Internal Medicine Work Phone: Comment on above: Room air 06-18-2015 09:19-0500 Respiratory Rate 18 /min TIMMY Navarro GARVEY [facility] Work Phone: Comment on above: Pattern: Unlabored 06-18-2015 09:19-0500 SaO2% (BldA) [Mass fraction] 97 % TIMMYTASIA Briceño LPN [facility] Internal Medicine; [facility] Work Phone: Comment on above: Room air 06-18-2015 09:19-0500 Weight 76.66 kg Nehal Vu [facility] Internal Medicine Work Phone: 10-16-2014 09:29-0400 BMI (Body Mass Index) 28.59 kg/m2 Josselyn Key RN [facility] Internal Medicine Work Phone: 10-16-2014 09:29-0400 Body Temperature 98.6 [degF] Josselyn Key RN [facility] Work Phone: Comment on above: Method: Temporal 10-16-2014 09:29-0400 Body weight 73.21 kg Josselyn Key RN [facility] Work Phone: 10-16-2014 09:29-0400 BP Diastolic 66 mm[Hg] Josselyn Key RN [facility] Work Phone: Comment on above: Patient Position: Sitting; Cuff Location : Left Arm; Cuff Size: Standard 10-16-2014 09:29-0400 BP Systolic 120 mm[Hg] Josselyn Key RN [facility] Work Phone: Comment on above: Patient Position: Sitting; Cuff Location : Left Arm; Cuff Size: Standard 10-16-2014 09:29-0400 BSA (Body Surface Area) 1.77 m2 Josselyn Key RN [facility] Work Phone: 10-16-2014 09:29-0400 Height 160.02 cm Josselyn Key RN [facility] Work Phone: 10-16-2014 09:29-0400 Pulse (Heart Rate) 57 /min Josselyn Key RN [facility] Work Phone: Comment on above: Pattern: Regular 10-16-2014 09:29-0400 Pulse Oximetry 98 % Nehal Vu [facility] Work Phone: Comment on above: Room air 10-16-2014 09:29-0400 Respiratory Rate 16 /min Josselyn Key RN [facility] Work Phone: Comment on above: Pattern: Unlabored 10-16-2014 09:29-0400 SaO2% (BldA) [Mass fraction] 98 % Josselyn Key RN [facility]; [facility] Work Phone: Comment on above: Room air 10-16-2014 09:29-0400 Weight 73.21 kg Nehal Vu [facility] Internal Medicine Work Phone: 08-30-2012 15:51-0400 BMI (Body Mass Index) 28.34 kg/m2 Nehal Vu [facility] Internal Medicine Work Phone: 08-30-2012 15:51-0400 Body weight 72.58 kg Nehal Vu [facility] Internal Medicine Work Phone: 08-30-2012 15:51-0400 BP Diastolic 78 mm[Hg] Nehal Vu [facility] Internal Medicine Work Phone: Comment on above: Patient Position: Sitting; Cuff Location : Left Arm; Cuff Size: Standard 08-30-2012 15:51-0400 BP Systolic 120 mm[Hg] Nehal Vu [facility] Internal Medicine Work Phone: Comment on above: Patient Position: Sitting; Cuff Location : Left Arm; Cuff Size: Standard 08-30-2012 15:51-0400 BSA (Body Surface Area) 1.76 m2 Nehal Vu [facility] Internal Medicine Work Phone: 08-30-2012 15:51-0400 Height 160.02 cm Nehal Vu [facility] Internal Medicine Work Phone: 08-30-2012 15:51-0400 Pulse (Heart Rate) 66 /min Nehal Vu [facility] Internal Medicine Work Phone: Comment on above: Pattern: Regular 08-30-2012 15:51-0400 Pulse Oximetry 97 % Nehal Vu [facility] Internal Medicine Work Phone: Comment on above: Room air 08-30-2012 15:51-0400 Respiratory Rate 16 /min Nehal Vu [facility] Internal Medicine Work Phone: 08-30-2012 15:51-0400 SaO2% (BldA) [Mass fraction] 97 % Nehal Vu MD Work Phone: [facility]; [facility] Work Phone: Comment on above: Room air 08-30-2012 15:51-0400 Weight 72.58 kg Nehal Vu [facility] Internal Medicine Work Phone: 04-19-2012 09:02-0500 BMI (Body Mass Index) 28.34 kg/m2 Nehal Vu [facility] Internal Medicine Work Phone: 04-19-2012 09:02-0500 Body Temperature 98.9 [degF] Nehal Vu [facility] Internal Medicine Work Phone: Comment on above: Method: Oral 04-19-2012 09:02-0500 Body weight 72.58 kg Nehal Vu [facility] Internal Medicine Work Phone: 04-19-2012 09:02-0500 BP Diastolic 78 mm[Hg] Nehal Vu [facility] Internal Medicine Work Phone: Comment on above: Patient Position: Sitting; Cuff Location : Left Arm; Cuff Size: Standard 04-19-2012 09:02-0500 BP Systolic 122 mm[Hg] Nehal Vu [facility] Internal Medicine Work Phone: Comment on above: Patient Position: Sitting; Cuff Location : Left Arm; Cuff Size: Standard 04-19-2012 09:02-0500 BSA (Body Surface Area) 1.76 m2 Nehal Vu [facility] Internal Medicine Work Phone: 04-19-2012 09:02-0500 Height 160.02 cm [facility] Work Phone: 04-19-2012 09:02-0500 Pulse (Heart Rate) 64 /min Nehal Vu [facility] Internal Medicine Work Phone: Comment on above: Pattern: Regular 04-19-2012 09:02-0500 Pulse Oximetry 98 % Nehal Vu [facility] Internal Medicine Work Phone: Comment on above: Room air 04-19-2012 09:02-0500 Respiratory Rate 18 /min Nehal Vu [facility] Internal Medicine Work Phone: 04-19-2012 09:02-0500 SaO2% (BldA) [Mass fraction] 98 % Nehal Vu MD Work Phone: [facility] Internal [facility]; [facility] Work Phone: Comment on above: Room air 04-19-2012 09:02-0500 Weight 72.58 kg Nehal Vu [facility] Internal Medicine Work Phone: 09-30-2011 15:42-0400 BMI (Body Mass Index) 28.34 kg/m2 Lia Johnson [facility] Internal Medicine Work Phone: 09-30-2011 15:42-0400 Body Temperature 98.4 [degF] Lia Johnson [facility] Internal Medicine Work Phone: 09-30-2011 15:42-0400 Body weight 72.58 kg Lia Johnson [facility] Internal Medicine Work Phone: 09-30-2011 15:42-0400 BP Diastolic 70 mm[Hg] Lia Pugatheresaalee [facility] Internal Medicine Work Phone: Comment on above: Patient Position: Sitting; Cuff Location : Left Arm; Cuff Size: Standard 09-30-2011 15:42-0400 BP Systolic 120 mm[Hg] Lia Pugaremy [facility] Internal Medicine Work Phone: Comment on above: Patient Position: Sitting; Cuff Location : Left Arm; Cuff Size: Standard 09-30-2011 15:42-0400 BSA (Body Surface Area) 1.76 m2 Lia Pugaremy [facility] Internal Medicine Work Phone: 09-30-2011 15:42-0400 Height 160.02 cm Lia Elizabeth [facility] Internal Medicine Work Phone: 09-30-2011 15:42-0400 Pulse (Heart Rate) 92 /min Lia Johnson [facility] Internal Medicine Work Phone: Comment on above: Pattern: Regular 09-30-2011 15:42-0400 Respiratory Rate 16 /min Lia Pugaremy [facility] Internal Medicine Work Phone: Comment on above: Pattern: Unlabored 09-30-2011 15:42-0400 Weight 72.58 kg Nehal Vu [facility] Internal Medicine Work Phone: 09-10-2011 08:17-0400 BMI (Body Mass Index) 28.34 kg/m2 TIMMY Briceño LPN [facility] Internal Medicine Work Phone: 09-10-2011 08:17-0400 Body Temperature 98.2 [degF] TIMMY Briceño LPN [facility] Internal Medicine Work Phone: Comment on above: Method: Oral 09-10-2011 08:17-0400 Body weight 72.58 kg TIMMY Briceño LPN [facility] Internal Medicine Work Phone: 09-10-2011 08:17-0400 BP Diastolic 70 mm[Hg] TIMMY Briceño LPN [facility] Internal Medicine Work Phone: Comment on above: Patient Position: Sitting; Cuff Location : Left Arm; Cuff Size: Standard 09-10-2011 08:17-0400 BP Systolic 112 mm[Hg] TIMMY Briceño LPN [facility] Internal Medicine Work Phone: Comment on above: Patient Position: Sitting; Cuff Location : Left Arm; Cuff Size: Standard 09-10-2011 08:17-0400 BSA (Body Surface Area) 1.76 m2 TIMMY Briceño LPN [facility] Internal Medicine Work Phone: 09-10-2011 08:17-0400 Height 160.02 cm TIMMY Briceño MACHINE PACKAGING TECHNICIAN [facility] Internal Medicine Work Phone: 09-10-2011 08:17-0400 Pulse (Heart Rate) 70 /min TIMMY Briceño LPN [facility] Internal Medicine Work Phone: Comment on above: Pattern: Regular 09-10-2011 08:17-0400 Respiratory Rate 18 /min TIMMY Briceño [facility] Internal Medicine Work Phone: Comment on above: Pattern: Unlabored 09-10-2011 08:17-0400 Weight 72.58 kg Nehal Vu [facility] Internal Medicine Work Phone: 12-19-2010 06:58-0400 BMI (Body Mass Index) 28.34 kg/m2 [facility] Work Phone: 12-19-2010 06:58-0400 Body Temperature 98.3 [degF] TIMMY Briceño [facility] Internal Medicine Work Phone: Comment on above: Method: Oral 12-19-2010 06:58-0400 Body weight 72.58 kg TIMMY Briceño [facility] Internal Medicine Work Phone: 12-19-2010 06:58-0400 BP Diastolic 68 mm[Hg] TIMMY Briceño [facility] Internal Medicine Work Phone: Comment on above: Patient Position: Sitting; Cuff Location : Left Arm; Cuff Size: Standard 12-19-2010 06:58-0400 BP Systolic 114 mm[Hg] TIMMY Briceño [facility] Internal Medicine Work Phone: Comment on above: Patient Position: Sitting; Cuff Location : Left Arm; Cuff Size: Standard 12-19-2010 06:58-0400 BSA (Body Surface Area) 1.76 m2 [facility] Work Phone: 12-19-2010 06:58-0400 Height 160.02 cm TIMMY Briceño [facility] Internal Medicine Work Phone: 12-19-2010 06:58-0400 Pulse (Heart Rate) 64 /min TIMMY Briceño [facility] Internal Medicine Work Phone: Comment on above: Pattern: Regular 12-19-2010 06:58-0400 Respiratory Rate 18 /min TIMMY Briceño [facility] Internal Medicine Work Phone: Comment on above: Pattern: Unlabored 12-19-2010 06:58-0400 Weight 72.58 kg [facility] Internal Medicine Work Phone: 11-06-2010 07:32-0400 BMI (Body Mass Index) 28.34 kg/m2 [facility] Work Phone: 11-06-2010 07:32-0400 Body Temperature 98.8 [degF] [facility] Internal Medicine Work Phone: Comment on above: Method: Oral 11-06-2010 07:32-0400 Body weight 72.58 kg [facility] Internal Medicine Work Phone: 11-06-2010 07:32-0400 BP Diastolic 70 mm[Hg] [facility] Internal Medicine Work Phone: Comment on above: Patient Position: Sitting; Cuff Location : Left Arm; Cuff Size: Standard 11-06-2010 07:32-0400 BP Systolic 118 mm[Hg] [facility] Internal Medicine Work Phone: Comment on above: Patient Position: Sitting; Cuff Location : Left Arm; Cuff Size: Standard 11-06-2010 07:32-0400 BSA (Body Surface Area) 1.76 m2 [facility] Internal Medicine Work Phone: 11-06-2010 07:32-0400 Height 160.02 cm Nehal Vu [facility] Work Phone: 11-06-2010 07:32-0400 Pulse (Heart Rate) 72 /min Nehal Vu [facility] Work Phone: Comment on above: Pattern: Regular 11-06-2010 07:32-0400 Respiratory Rate 17 /min Nehal Vu [facility] Work Phone: Comment on above: Pattern: Unlabored 11-06-2010 07:32-0400 Weight 72.58 kg Nehal Vu [facility] Work Phone: 10-24-2010 07:14-0400 Body Temperature 97.6 [degF] Elidia Lagnua RN [facility] Work Phone: Comment on above: Method: Oral 10-24-2010 07:14-0400 Body weight 72.58 kg Elidia Laguna RN [facility] Work Phone: 10-24-2010 07:14-0400 BP Diastolic 68 mm[Hg] Elidia Laguna RN [facility] Work Phone: Comment on above: Patient Position: Sitting; Cuff Location : Left Arm; Cuff Size: Standard 10-24-2010 07:14-0400 BP Systolic 128 mm[Hg] Elidia Laguna RN [facility] Work Phone: Comment on above: Patient Position: Sitting; Cuff Location : Left Arm; Cuff Size: Standard 10-24-2010 07:14-0400 Pulse (Heart Rate) 68 /min Elidia Laguna RN [facility] Work Phone: Comment on above: Pattern: Regular 10-24-2010 07:14-0400 Respiratory Rate 18 /min Elidia Laguna RN [facility] Work Phone: Comment on above: Pattern: Unlabored 10-24-2010 07:14-0400 Weight 72.58 kg Nehal Vu [facility] Work Phone: 07-22-2007 08:34-0400 Body Temperature 98.2 [degF] TIMMY Briceño LPN [facility] Work Phone: Comment on above: Method: Oral 07-22-2007 08:34-0400 Body weight 72.58 kg TIMMY Briceño LPN [facility] Internal Medicine Work Phone: 07-22-2007 08:34-0400 BP Diastolic 80 mm[Hg] TIMMY Briceño LPN [facility] Internal Medicine Work Phone: Comment on above: Patient Position: Sitting; Cuff Location : Left Arm; Cuff Size: Standard 07-22-2007 08:34-0400 BP Systolic 120 mm[Hg] TIMMY Briceño LPN [facility] Work Phone: Comment on above: Patient Position: Sitting; Cuff Location : Left Arm; Cuff Size: Standard 07-22-2007 08:34-0400 Head Circum[facility] 0 [facility] Work Phone: 07-22-2007 08:34-0400 Head Occipital-frontal circumference 0 cm TIMMY Briceño [facility] Internal Medicine; [facility] Work Phone: 07-22-2007 08:34-0400 Height 0 cm TIMMY Briceño LPN [facility] Work Phone: 07-22-2007 08:34-0400 Pulse (Heart Rate) 86 /min TIMMY Briceño [facility] Internal Medicine Work Phone: Comment on above: Pattern: Regular 07-22-2007 08:34-0400 Respiratory Rate 18 /min TIMMY Briceño LPN [facility] Internal Medicine Work Phone: Comment on above: Pattern: Unlabored 07-22-2007 08:34-0400 [facility] 72.58 [facility] Work Phone: 04-26-2007 15:09-0500 BMI (Body Mass Index) 27.99 kg/m2 TIMMY Briceño MACHINE PACKAGING TECHNICIAN [facility] Internal Medicine Work Phone: 04-26-2007 15:09-0500 Body Temperature 98.4 [degF] TIMMY Briceño LPN [facility] Internal Medicine Work Phone: Comment on above: Method: Oral 04-26-2007 15:09-0500 Body weight 71.67 kg TIMMY Briceño [facility] Work Phone: 04-26-2007 15:09-0500 BP Diastolic 78 mm[Hg] TIMMY Briceño LPN [facility] Work Phone: Comment on above: Patient Position: Sitting; Cuff Location : Left Arm; Cuff Size: Standard 04-26-2007 15:09-0500 BP Systolic 120 mm[Hg] TIMMY Briceño LPN [facility] Work Phone: Comment on above: Patient Position: Sitting; Cuff Location : Left Arm; Cuff Size: Standard 04-26-2007 15:09-0500 BSA (Body Surface Area) 1.75 m2 TIMMY Briceño LPN [facility] Work Phone: 04-26-2007 15:09-0500 Head Circumference 0 cm Nehal Vu [facility] Work Phone: 04-26-2007 15:09-0500 Head Occipital-frontal circumference 0 cm TIMMY Briceño MACHINE PACKAGING TECHNICIAN [facility]; [facility] Work Phone: 04-26-2007 15:09-0500 Height 160.02 cm TIMMY Briceño LPN [facility] Work Phone: 04-26-2007 15:09-0500 Pulse (Heart Rate) 70 /min TIMMY Briceño LPN [facility] Work Phone: Comment on above: Pattern: Regular 04-26-2007 15:09-0500 Respiratory Rate 18 /min TIMMY Briceño LPN [facility] Work Phone: Comment on above: Pattern: Unlabored 04-26-2007 15:09-0500 Weight 71.67 kg Nehal Vu [facility] Internal Medicine Work Phone: Encounters Encounter Date Encounter Type Care Provider Facility Start: 02-01-2025 ambulatory Nehal Vu Facility:[facility] Start: 01-04-2025 End: 01-04-2025 Patient encounter procedure Elidia SANCHEZ [facility] Work Phone: Start: 01-04-2025 End: 01-04-[address] Nehal Vu MD Work Phone: -[facility] Start: 12-21-2024 End: 12-21-2024 Emergency department patient visit Dr. Nehal Vu MD Work Phone: -Emergency Department Work Phone: Start: 12-20-2024 Non-patient / Non-visit Dr. Papito Ray MD -[facility] Work Phone: Start: 12-20-2024 End: 12-20-[address] Nehal Vu MD Work Phone: -Pulmonary Services/Neurology Start: 12-20-2024 End: 12-20-[address] Nehal Vu MD -Pulmonary Services/Neurology Work Phone: Start: 12-20-2024 End: 12-20-2024 ambulatory Nehal Vu Facility:[facility] Start: 07-11-2024 End: 07-11-[address] Nehal Vu MD Work Phone: [facility] Work Phone: Start: 07-11-2024 End: 07-11-[address] Nehal Vu MD -Outpatient Bone Densitometry Work Phone: Start: 07-11-2024 End: 07-11-2024 ambulatory Nehal Vu Facility:[facility] Start: 01-25-2023 End: 01-25-[address] Nehal Vu Work Phone: [facility] Work Phone: Start: 01-25-2023 End: 01-25-[address] Nehal Vu Work Phone: [facility]-Outpatient Breast Imaging Work Phone: Start: 12-07-2022 End: 12-07-2022 Office outpatient visit 25 minutes Nehal Vu MD Work Phone: [facility] Start: 12-07-2022 End: 12-07-2022 Patient encounter status Nehal Vu MD Work Phone: [facility]; [facility] Work Phone: Start: 12-07-2022 Nehal Francois Work Phone: [facility] Start: 12-01-2022 End: 12-01-[address] Nehal Vu Work Phone: [facility] Start: 12-01-2022 End: 01-04-2023 Nehal Vu MD Work Phone: [facility] Start: 10-29-2022 End: 10-29-[address] Nehal Vu Work Phone: [facility] Work Phone: Start: 09-15-2022 End: 09-15-2022 Office outpatient visit 25 minutes Nehal Vu MD Work Phone: [facility] Start: 09-15-2022 End: 09-15-2022 Patient encounter status Nehal Vu MD Work Phone: [facility]; [facility] Work Phone: Start: 08-19-2022 ambulatory Nehal Vu MD Compr ehensive Internal Med Start: 08-14-2022 Review Nehal Francois Work Phone: [facility] Start: 03-13-2022 End: 03-13-2022 Patient encounter procedure Nehal Vu MD Work Phone: [facility] Comment on above: kurt 04-02 had colo noscopy fall 14 good. pap 9-20 mamm now bd 12-3012-15-19 KURT so Physical: mammogram 07-13-18 pap 05-06-16, BD 18 good, colonoscopy Dr. Yuen 02/22 hx polyp, 11-23-18, doing better with anxiety. time and [facility] Ricki Hendrickson and Shaneka Delacruz 1000 gifts, MOCA , [employer] Start: 03-13-2022 End: 03-13-2022 Nehal Vu MD Work Phone: [facility] Start: 02-26-2022 End: 02-26-2022 Annotation/Addendum Nehal Vu MD Work Phone: [facility] Start: 02-26-2022 End: 02-26-2022 Lab Order Nehal Vu MD Work Phone: [facility] Start: 02-26-2022 End: 02-26-2022 Nehal Vu MD Work Phone: [facility] Start: 12-12-2021 End: 12-12-2021 Office outpatient visit 25 minutes Nehal Vu MD Work Phone: [facility] Start: 12-12-2021 End: 12-12-2021 Patient encounter procedure Lee Sutton LPN [facility]; [facility] Work Phone: Comment on above: kurt 03-02 wrote fo r mammo had colonscopy fall 14 good. pap 9-20 mamm now bd 9-20 9-20 KURT so Physical: mammogram 07-13-18 pap 05-06-16, BD 318 good, colonoscopy Dr. Yuen 02/22 hx polyp, 11-23-18, doing better with anxiety. time and working on [facility] Ricki Hendrickson and Shaneka Delacruz 1000 gifts, MOCA , [employer] Start: 10-10-2021 End: 10-10-2021 Periodic preventive med est patient 18-39 yrs Nehal Vu MD Work Phone: [facility] Start: 09-16-2021 End: 09-16-2021 Office outpatient visit 15 minutes Nehal Vu MD Work Phone: [facility] Start: 09-05-2021 End: 09-05-2021 Office outpatient visit 40 minutes Nehal Vu MD Work Phone: [facility] Start: 09-05-2021 End: 09-05-2021 Patient encounter procedure Nehal Vu MD Work Phone: [facility]; [facility] Work Phone: Comment on above: 12-15-19 KURT so Physical: mammogram 07-13-18 pap 05-06-16, BD 06-27 good, colonoscopy Dr. Yuen 02/22 hx polyp, 11-23-18, doing better with anxiety. time and working on [employer] Ricki Hendrickson and Shaneka Eliowalkre 1000 gifts, MOCA , [employer] kurt 03-02 wrote fo r mammo had colonscopy fall 14 good. pap - mamm now bd 12-30 Start: 09-05-2021 Review Nehal Francois Work Phone: [facility] Internal Medicine Start: 08-08-2021 Non-patient / Non-visit Dr. Nehal Vu Work Phone: [facility] Start: 08-08-2021 End: 08-08-[address] Nehal uV Work Phone: [facility]-Cardiovascular Services Start: 07-04-2021 End: 07-04-[address] Nehal Vu Work Phone: [facility] Start: 04-15-2021 End: 04-15-2021 Office outpatient visit 40 minutes Nehal Vu MD Work Phone: [facility] Start: 04-15-2021 End: 04-15-2021 Lab Order Nehal Vu MD Work Phone: [facility] Start: 04-15-2021 End: 04-15-2021 Nehal Vu MD Work Phone: [facility] Start: 02-14-2021 End: 02-26-2021 Office outpatient visit 25 minutes Nehal Vu MD Work Phone: [facility] Start: 02-14-2021 End: 02-26-2021 Patient encounter procedure Nehal Vu MD Work Phone: [facility]; [facility] Work Phone: Comment on above: kurt 03-02 wrote fo r mammo had colonscopy fall 14 good. pap 9-20 mamm now bd 9-20 9--20 KURT so Physical: mammogram 07-13-18 pap 05-06-16, BD 3-18 good, colonoscopy Dr. Yuen 02/22 hx polyp, 11-23-18, doing better with anxiety. time and working on [employer] Ricki Hendrickson and Shaneka Delarcuz 1000 gifts, MOCA , [employer] [address] Start: 12-27-2020 End: 12-27-2020 Office outpatient visit 40 minutes Nehal Vu MD Work Phone: [facility] Start: 12-27-2020 End: 12-27-2020 Patient encounter procedure Nehal Vu MD Work Phone: [facility] Start: 10-25-2020 End: 10-25-2020 Office outpatient visit 40 minutes Nehal Vu MD Work Phone: [facility] Start: 10-11-2020 End: 10-11-2020 Annotation/Addendum Nehal Vu MD Work Phone: [facility] Start: 10-11-2020 End: 10-11-2020 Lab Order Nehal Vu MD Work Phone: [facility] Start: 10-11-2020 End: 10-11-2020 Nehal Vu MD Work Phone: [facility] Start: 09-11-2020 End: 09-11-2020 Phone Encounter Nehal Vu MD Work Phone: [facility] Start: 09-11-2020 End: 09-11-2020 Nehal Vu MD Work Phone: [facility] Start: 08-06-2020 End: 08-08-2020 Office outpatient visit 15 minutes Nehal Vu MD Work Phone: [facility] Start: 07-30-2020 End: 07-30-2020 Office outpatient visit 40 minutes Nehal Vu MD Work Phone: [facility] Start: 07-30-2020 End: 07-30-2020 Phone Encounter Nehal Vu MD Work Phone: [facility] Start: 07-30-2020 End: 07-30-2020 Nehal Vu MD Work Phone: [facility] Start: 07-24-2020 End: 07-24-2020 Orders Only Jennifer Pachecolaurenjudah Work Phone: [facility] Comment on above: Thyroid mass (Primar y Dx) Start: 07-23-2020 End: 07-23-2020 Patient encounter procedure Jennifer Pachecogerardo Work Phone: [facility] Comment on above: Thyroid mass (Primar y Dx) Start: 05-22-2020 End: 05-22-2020 Patient encounter procedure External Provider [facility] Start: 05-22-2020 Results Only External Provider [facility] Start: 04-19-2020 End: 04-19-2020 Office outpatient visit 15 minutes Nehal Vu [facility] Start: 04-19-2020 End: 04-19-2020 Patient encounter procedure Neahl Vu MD Work Phone: [facility]; [facility] Work Phone: Comment on above: 12-15-19 KURT so Physical: mammogram 07-13-18 pap 05-06-16, BD -18 good, colonoscopy Dr. Yuen 02/22 hx polyp, 11-23-18, doing better with anxiety. time and working on j[employer] Hendrickson and Shaneka Delacruz 1000 gifts, MOCA , [employer] [address] Start: 01-12-2020 End: 01-17-2020 Office outpatient visit 15 minutes Nehal Vu [facility] Start: 01-12-2020 [facility] Start: 01-09-2020 End: 01-09-2020 Phone Encounter Nehal Vu [facility] Manager al Medicine Start: 01-09-2020 End: 01-09-2020 Nehal Vu MD Work Phone: [facility] Start: 12-15-2019 End: 12-21-2019 Office outpatient visit 15 minutes Nehal Vu [facility] Start: 12-15-2019 End: 12-21-2019 Patient encounter procedure Nehal Vu MD Work Phone: [facility] Start: 12-15-2019 Review Nehal Vu Comprehens rubi Internal Medicine Start: 11-17-2019 End: 11-17-2019 Lab Order Nehal Vu [facility] Manager al Medicine Start: 11-17-2019 End: 11-17-2019 Patient encounter status Nehal Vu MD Work Phone: [facility] Start: 11-17-2019 End: 11-17-2019 Nehal Vu MD Work Phone: [facility] Start: 03-28-2019 End: 03-28-2019 Office outpatient visit 15 minutes Nehal Vu [facility] Start: 03-28-2019 End: 03-28-2019 Patient encounter procedure Nehal Vu MD Work Phone: [facility] Start: 03-14-2019 End: 03-14-2019 Lab Order Nehal Vu [facility] Manager [facility] Medicine Start: 03-14-2019 End: 03-14-2019 Nehal Vu MD Work Phone: [facility] Start: 02-08-2019 End: 02-10-2019 Office outpatient visit 25 minutes Nehal Vu [facility] Start: 02-08-2019 Review Nehal Vu Comprehens rubi [facility] Start: 12-07-2018 End: 12-15-2018 Office outpatient visit 10 minutes Nehal Vu [facility] Start: 12-07-2018 Review Nehal Vu Comprehens rubi [facility] Medicine Start: 11-18-2018 End: 11-18-2018 Patient encounter procedure Nehal Vu [facility] Start: 11-18-2018 End: 11-18-2018 Nehal Vu MD Work Phone: [facility] Start: 11-07-2018 End: 11-07-2018 Phone Encounter Nehal Vu [facility] Contact [facility] Manager al Medicine Start: 11-07-2018 Carlos Melton [facility] Internal Medicine Start: 11-07-2018 End: 11-07-2018 Nehal Vu MD Work Phone: [facility] Start: 09-20-2018 End: 09-20-2018 Office outpatient visit 15 minutes Nehal Vu [facility] Start: 09-20-2018 End: 09-20-2018 Patient encounter procedure Nehal Vu MD Work Phone: [facility] Start: 07-29-2018 End: 08-01-2018 Office outpatient visit 40 minutes Nehal Vu [facility] Start: 06-08-2018 End: 06-08-2018 Office outpatient visit 5 minutes Nehal Vu [facility] Start: 06-08-2018 End: 06-08-2018 Patient encounter procedure Nehal Vu MD Work Phone: [facility] Start: 05-24-2018 End: 05-24-2018 Lab Order Nehal Vu [facility] Medicine Start: 05-24-2018 End: 05-24-2018 Nehal Vu MD Work Phone: [facility] Start: 03-30-2018 Patient encounter procedure Emily Yuen Facility:[id number] Start: 03-15-2018 End: 03-17-2018 Office outpatient visit 25 minutes Nehal Vu [facility] Start: 03-10-2018 End: 03-10-2018 Phone Encounter Nehal Vu [facility] Start: 03-10-2018 End: 03-10-2018 Nehal Vu MD Work Phone: [facility] Start: 02-08-2018 End: 02-08-2018 Office outpatient visit 25 minutes Nehal Vu [facility] Start: 02-03-2018 End: 02-03-2018 Office outpatient visit 40 minutes Nehal Vu [facility] Start: 02-02-2018 End: 02-02-2018 Phone Encounter Nehal Vu [facility] Medicine Start: 02-02-2018 End: 02-02-2018 Nehal Vu MD Work Phone: [facility] Start: 05-25-2017 End: 05-28-2017 Patient encounter procedure Nina Estrada DOMENICO [facility]; [facility] Work Phone: Comment on above: wrote for mammo had colonscopy fall 14 good. did pap today Start: 05-25-2017 End: 05-28-2017 Periodic preventive med est patient 40-64yrs Nehal Vu [facility] Start: 04-26-2017 End: 04-26-2017 Lab Order Nehal Vu [facility] Medicine Start: 04-26-2017 End: 04-26-2017 Nehal Vu MD Work Phone: [facility] Start: 01-12-2017 End: 01-12-2017 Office outpatient visit 25 minutes Nehal Vu [facility] Start: 01-12-2017 End: 01-12-2017 Patient encounter procedure Nehal Vu MD Work Phone: [facility] Start: 11-03-2016 End: 11-03-2016 Office outpatient visit 15 minutes Nehal Vu [facility] Start: 09-08-2016 End: 09-08-2016 Periodic preventive med est patient 65yrs& older Nehal Vu [facility] Start: 05-05-2016 End: 05-11-2016 Office outpatient new 10 minutes Nehal Vu [facility] Start: 05-05-2016 End: 05-11-2016 Patient encounter procedure Nehal Vu MD Work Phone: [facility] Start: 08-08-2015 End: 08-08-2015 Office outpatient visit 25 minutes Nehal Vu [facility] Start: 07-23-2015 End: 07-23-2015 Office outpatient visit 15 minutes Nehal Vu [facility] Start: 06-18-2015 End: 06-18-2015 Periodic preventive med est patient 18-39 yrs Nehal Vu [facility] Start: 06-18-2015 End: 06-18-2015 Historical Summary Nehal Vu [facility] Start: 06-18-2015 End: 06-18-2015 Nehal uV MD Work Phone: [facility] Start: 06-07-2015 End: 06-07-2015 Phone Encounter Nehal Vu [facility] Manager [facility] Medicine Start: 06-07-2015 End: 06-07-2015 Nehal Vu MD Work Phone: [facility] Start: 10-25-2014 End: 10-25-2014 Phone Encounter Nehal Vu [facility] Manager [facility] Medicine Start: 10-25-2014 End: 10-25-2014 Nehal Vu MD Work Phone: [facility] Start: 10-16-2014 End: 10-16-2014 Patient encounter procedure Nehal Vu MD Work Phone: [facility] Start: 10-16-2014 End: 10-16-2014 Periodic preventive med est patient 18-39 yrs Nehal Vu [facility] Start: 06-21-2014 End: 06-21-2014 Phone Encounter Nehal Vu [facility] Medicine Start: 06-21-2014 End: 06-21-2014 Nehal Vu MD Work Phone: [facility] Start: 08-30-2012 End: 08-30-2012 Patient encounter Nehal Vu [facility] Start: 08-30-2012 End: 08-30-2012 Nehal Vu MD Work Phone: [facility] Start: 04-19-2012 End: 04-19-2012 Office outpatient visit 15 minutes Nehal Vu [facility] Start: 09-30-2011 End: 10-01-2011 Patient encounter Nehal [facility] Manager al Medicine Start: 09-30-2011 End: 10-01-2011 Nehal Vu MD Work Phone: [facility] Start: 09-10-2011 End: 09-10-2011 Patient encounter Nehal Vu [facility] Manager al Medicine Start: 09-10-2011 End: 09-10-2011 Nehal Vu MD Work Phone: [facility] Start: 12-19-2010 End: 12-19-2010 Patient encounter Nehal Vu [facility] Manager al Medicine Start: 12-19-2010 End: 12-19-2010 Nehal Vu MD Work Phone: [facility] Start: 11-06-2010 End: 11-06-2010 Office outpatient visit 15 minutes Nehal Vu [facility] Start: 10-24-2010 End: 10-24-2010 Patient encounter Nehal Vu [facility] Manager al Medicine Start: 10-24-2010 End: 10-24-2010 Nehal Vu MD Work Phone: [facility] Start: 07-22-2007 End: 07-22-2007 Patient encounter Nehal Vu [facility] Manager [facility] Start: 07-22-2007 End: 07-22-2007 Nehal Vu MD Work Phone: [facility] Start: 04-26-2007 End: 04-26-2007 Patient encounter Nehal Vu [facility] Manager [facility] Start: 04-26-2007 End: 04-26-2007 Nehal Vu MD Work Phone: [facility] Patient encounter procedure Nehal Vu MD Work Phone: [facility]; [facility] Work Phone: Comment on above: 12-15-19 KURT so Physical: mammogram 4-- pap 1-17, BD 3-18 good, colonoscopy Dr. Yuen 02/22 hx polyp, 11-23-18, doing better with anxiety. time and working on christain devotionals Ricki Hendrickson and Shaneka Mosqueraamp 1000 gifts, MOCA , Cognivue 80 Patient encounter procedure Nina Estrada [facility]; [facility] Work Phone: Comment on above: kurt 03-02 wrote fo r mammo had colonscopy fall 14 good. pap 9-20 mamm now bd 9-20 12-15-19 KURT so Physical: mammogram 4-3-19 pap 125-17, BD 3-18 good, colonoscopy Dr. Yuen 02/22 hx polyp, 11-23-18, doing better with anxiety. 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 Nehal Vu MD Work Phone: Start: 12-21-2024 Plain X-ray of shoulder Dr. Nehal Vu MD Work Phone: Start: 07-11-2024 Dual energy X-ray absorptiometry Dr. Nehal Vu MD Work Phone: Start: 07-11-[address] Nehal Vu MD Work Phone: Start: 01-25-[address] Nehal uV Work Phone: Start: 12-01-2022 X-ray of lumbosacral spine Dr. Nehal Vu Work Phone: Start: 12-01-2022 End: 12-02-2022 Procedure Note: See Note; NOTES: [facility] [address] [place] [address] L/S Spine Min 4 Views MR#: [id number] Acct: [id number] Name: BASILIA CAMPUZANO Rep #: [id number] : 1955 F 67 From: Nj Mon MD PCP: Dr. Nehal Vu MD Status: DEP AMB Study: L/S Spine Min 4 Views Date of Exam: 12/01/22 Exam# [id number] Ordering Dr: Nehal Vu MD EXAM: XR LUMBOSACRAL SPINE, 4 OR 5 VIEWS CLINICAL INDICATION: PAIN -- -- lower back pain w/radiation down b/l lower extremities, x 4 weeks, nki TECHNIQUE: Frontal, lateral and bilateral oblique views of the lumbar spine. COMPARISON: No relevant prior studies available. FINDINGS: VERTEBRAE: Mild vertebral body osteophytosis. Normal alignment. No acute fracture or subluxation. DISC SPACES: L5-S1 disc space narrowing with vacuum disc phenomenon. GASTROINTESTINAL TRACT: Normal bowel gas pattern. RAD/L/S Spine Min 4 Views IMPRESSION: No acute abnormality. Spondylosis as described. Electronically Signed: Nj Mon MD at 10:48 EDT , CC: Dr. Nehal uV MD Nitrocellulose Maker: Signed Nehal Vu MD Work Phone: Start: 10-29-2022 End: 10-29-2022 Procedure Note: See Note; NOTES: [facility] [address] [place] [address] OFFICE VISIT Date of Service: 10/29/22 MR#: [id number] Acct: [id number] Name: BASILIA CAMPUZANO Rep #: [id number] : 1955 Provider: REYNALDO Deras Age/Sex: 67/F Location: [facility] Status: Signed [facility] History of Present Illness Details: Basilia Campuzano is a 67-year-old female that presents here today for a cardiovascular follow-up. In February 2018 she had an abnormal troponin, this was felt to be related to her tachycardia as her heart catheterization was normal. Pt notes that last fall she had a faster HR, her PCP did increase her metoprolol to a whole pill. Pt notes that yesterday during her walk she felt funny in her chest, she then noted when she stopped her HR was in the 30s. She sat down and rested. It lasted approx 10 minutes. She does not have EKG tracings on her watch. She did not feel lightheaded/dizziness. Pt has not no other cardiac symptoms. Intake Vital Signs 07/04/21 13:42 01/21/22 09:04 10/29/22 08:42 Height 5 ft 4 in 5 ft 4 in 5 ft 4 in Weight: 171 lb BMI 29.3 BP 112/70 Blood Pressure Location Lt brachial Position Sitting Respiration 18 Pulse 52 L Pulse Source Monitor Pulse Oximetry (%) 97 Intake Visit Reasons: 1 Y FU Partner Integration Planner Required: No Is patient in pain?: No Allergies No Known Allergies Allergy (Verified 10/29/22 08:43) Medications multivitamin 1 ea PO DAILY 03/08/18 [History Confirmed 10/29/22] alprazolam 0.5 mg tablet 0.5 mg PO QHS PRN 07/04/21 [History Confirmed 10/29/22] cholecalciferol (vitamin D3) 25 mcg (1,000 unit) capsule 25 mcg PO DAILY 07/04/21 [History Confirmed 10/29/22] levothyroxine 75 mcg tablet 88 mcg PO DAILY 07/04/21 [History Confirmed 10/29/22] metoprolol tartrate 25 mg tablet 25 mg PO DAILY 10/29/22 [History Confirmed 10/29/22] rosuvastatin 5 mg tablet mg PO 10/29/22 [History Confirmed 10/29/22] Nurse's Note: Patient states she is on a cholesterol medication but does not know what it is. [facility] Medical History Abnormal cardiac enzyme level Epigastric pain History of Sarah thyroiditis History of left heart catheterization (LHC) ( 03/09/18) Mixed hyperlipidemia Multiple thyroid nodules Non-ST elevation (NSTEMI) myocardial infarction Palpable abdominal aorta Palpitations Prediabetes Syncope Surgical History History of cholecystectomy History of left knee surgery History of lobectomy of thyroid ( 09/10/20) Family History Father Heart problem Brother Diabetes Brother Diabetes Sister Diabetes Sister Paroxysmal supraventricular tachycardia Sister Tachycardia Social History Smoking Status: Never smoker alcohol intake: never ROS Const Const: Negative for fatigue, weakness, fever(s), headache(s), chills, frequent falls, weight gain or weight loss Eyes Eyes: Negative for blind spots, loss of peripheral vision, transient loss of vision, blurry vision, change in vision, double vision, floaters or tunnel vision ENT ENT: Negative for headache(s), dizziness, Nosebleed/epistaxis, balance problems or neck pain Cardio Chest Pain: No Palpitations: Yes (see HPI) Edema: None Muscle aches with walking: None Resp Respiratory: Negative for SOB with activity, SOB at rest or SOB orthopnea SOB lying down GI GI: Negative nausea, vomiting, heartburn, bloating, vomiting blood/hematemesis, bright, red blood in stools or black,tarry stools Musc Musc: Negative for muscle aches/ myalgia, muscle weakness, joint pain or balance problems Neuro Neuro: Negative for dizziness, lightheadedness, near syncope, syncope, orthostatic symptoms, frequent falls, headache(s), weakness, blurry vision or double vision Anastacio Hematologic/Lymphatic: Negative for easy bleeding or easy bruising Endo Endo: Negative for fatigue Cardiology Exam Const Appearance: cooperative and no acute distress Orientation: alert and oriented x3 Head Head: normal to inspection Ears: hearing grossly normal bilaterally Nose: external nose normal Face and Sinus: face symmetric Eyes General: appearance normal, both eyes and all related structures Eyelids: eyelids normal Conjunctivae: conjunctivae normal Pupils: PERRL and pupil size EOM: EOM intact bilaterally Neck Neck: normal visual inspection Carotids: Negative bruit Chest Chest inspection: normal inspection of the chest and normal respiratory effort Auscultation: Bilateral: Clear to Auscultation Cardio Palpation: normal PMI Rate: regular rate Rhythm: regular rhythm Heart sounds: S1 normal and S2 normal; Negative rub, gallop or murmur GI GI: normal to inspection and soft; Negative no hepatosplenomegaly Neuro General: patient alert, patient oriented x3 and CN's II-XI intact bilaterally Skin Skin: no rashes or lesions noted Extremities Pulses: Normal: Right Posterior Tibial Pulse, Left Posterior Tibial Pulse, Right Radial Pulse and Left Radial Pulse Lower Extremity Edema: None: Bilateral Psych Psychological: normal affect Supplemental Info Supplemental Information Echocardiogram 03/09/2018: Left ventricular systolic function is normal. The estimated ejection fraction is 65 %. Apical false tendon noted. Mild (1+) eccentric mitral valve insufficiency. Trivial tricuspid valve insufficiency. Trivial pericardial effusion. There are no echocardiographic indications of cardiac tamponade. Right ventricular systolic pressure estimated to be 23 mmHg. No evidence for diastolic dysfunction. Cardiac catheterization 03/01/2018: PROCEDURE(S) PERFORMED [id number]/COR/LV [id number] RENAL ANGIO WITH HEART CATH CLINICAL PROFILE AND INDICATIONS Indications: ACS <= 24 hrs, Suspected CAD Heart Failure: None Stress/Imaging Stress/Image Study Performed: No Angina Classification Anginal Classification w/in 2 Weeks: No symptoms CAD Presentations: Other: Near Syncope; Epigastric Discomfort CONCLUSIONS Elevated Left Ventricular End Diastolic Pressure Normal LV size, wall motion,and systolic function LVEF: by LV gram 65 % Normal coronary arteries Abdominal Aorta: angiographically normal Renal Artieries: angiographically normal RECOMMENDATIONS Risk factor modification Medical therapy DESCRIPTION OF PROCEDURE The patient arrived to the procedure lab. The risks and benefits of the procedure as well as a full description of our services here and current unavailability of surgical backup were fully explained to the patient and/or their significant other prior to the catheterization. The Timeout was completed, verifying the correct patient and procedure. The patient's procedural site was prepped and draped in the usual fashion. Local anesthetic was given subcutaneously to right groin region with Lidocaine 2%. Using a modified Seldinger technique, arterial access was obtained via the right femoral artery, a 4Fr sheath was inserted Left Coronary Artery selective angiography was performed in multiple views using a 4 Fr. JL5 catheter. Right Coronary Artery selective angiography was then performed in multiple views using a 4 Fr. 3DRC catheter. Left Ventriculography was performed in MARINA projection using a 4 Fr. Pigtail catheter. LV to AO pullback pressures were then recorded.The arterial sheath was pulled and manual compression applied until hemostasis is achieved. CORONARY ANGIOGRAPHY DOMINANCE: Right Dominant LEFT HEART ASSESSMENT Left Ventricular Ejection Fraction: by LV Gram 65 % Normal LV wall motion Elevated Left Ventricular End Diastolic Pressure LVEDP: 20 mmHg LEFT MAIN: Angiographically normal LEFT ANTERIOR DECENDING ARTERY: Angiographically normal CIRCUMFLEX ARTERY: Angiographically normal RIGHT CORONARY ARTERY: Angiographically normal VALVE FINDINGS: Normal Aortic Valve function Normal Mitral Valve function AORTIC ROOT: Angiographically normal PERIPHERAL FINDINGS: Abdominal Aorta: Angiographically Normal Right Renal Artery Angiographically normal Left Renal Artery Angiographically non-obstructive Labs: No Data to Display Diagnostics: Echocardiogram Pulmonary: No Data to Display Past Visits: Cardiology Visit 10/29/22 Assessment and Plan Assessment and Plan (1) Mitral valve insufficiency: Status: Acute Plan: Stable, will continue to monitor with echocardiograms as deemed appropriate. (2) Palpitations: Status: Acute Plan: Patient does continue to have palpitations. Did discuss potential testing that we could be doing. Suggested that we could could pursue a 14-day event monitor however since patient's symptoms are not frequent enough do not feel that I would get any definite results from this. For now we will continue to monitor. She will continue with her low-dose metoprolol. (3) Mixed hyperlipidemia: Status: Chronic Plan: Patient was recently started on Crestor by her primary care doctor. Medications: Changed From metoprolol tartrate 12.5 mg (1/2 x 25 mg) PO DAILY 45 tabs 3RF To metoprolol tartrate 25 mg PO DAILY Plan Details Additional Comments: Patient will follow up in 1 year, or sooner if needed. Thank you for allowing me to participate in the care of your patient. Please don't hesitate to call if any issues arise. This note was generated using a voice recognition system and there may be incorrect words, spelling, or punctuation that were not noted when reviewing the office note prior to saving. Follow Up: 18 Months (MMM) Coding Level of Care Code Off vis,est,level 2 Diagnoses Mitral valve insufficiency I34.0 Palpitations R00.2 Mixed hyperlipidemia E78.2 Coding Level of Care Code Off vis,est,level 2 Diagnoses Mitral valve insufficiency I34.0 Palpitations R00.2 Mixed hyperlipidemia E78.2 10/29/22 1608 <Electronically signed by Yina Anderson> Date Yina JACOBS Cosigner Signature: Date (if applicable) CC: MD Nehal Larry MD Work Phone: Start: 07-21-2022 End: 07-22-2022 Aorta Procedure Note: See Note; NOTES: [facility] Imaging Services [address] [place] [address] Aorta MR#: [id number] Acct: [id number] Name: BASILIA CAMPUZANO Rep #: [id number] : 1955 F 67 From: Jeanne mckenzie MD PCP: Dr. Nehal Vu MD Status: REG CLI Study: Aorta Date of Exam: 07/21/22 Exam# [id number] Ordering Dr: Nehal Vu MD HISTORY: ABNORMAL US. TECHNIQUE: Mills scale and color doppler imaging was obtained of the abdominal aorta. 27 images. COMPARISON: 07/20/2018. FINDINGS: PROXIMAL ABDOMINAL AORTA: 2.3 x 2.5 cm. MID ABDOMINAL AORTA: 2.1 x 2.5 cm. DISTAL ABDOMINAL AORTA: 1.8 x 2 cm. RIGHT ILIAC ARTERY: 1.4 cm. LEFT ILIAC ARTERY: 1.4 cm. Abdominal aorta, iliac arteries, and inferior vena cava are all patent. US/Aorta IMPRESSION: No sonographic evidence of abdominal aortic aneurysm. Electronically Signed: Jeanne Couch MD at 15:39 EDT Reading Location ID and State: [address] [place] [address] Tel , Service support , CC: Dr. Nehal Vu MD Nitrocellulose Maker: Signed Nehal Vu MD Work Phone: Start: 01-21-2022 End: 01-22-2022 Dexa Bone Density Study Procedure Note: See Note; NOTES: [facility] Imaging Services [address] [place] [id number] Dexa Bone Density Study MR#: [id number] Acct: [id number] Name: BASILIA CAMPUZANO Rep #: [id number] : 1955 F 66 From: Ash sotelo MD PCP: Dr. Nehal Vu MD Status: REG CLI Study: Dexa Bone Density Study Date of Exam: 01/21/22 Exam# [id number] Ordering Dr: Nehal Vu MD STUDY: DUAL ENERGY X-RAY ABSORPTIOMETRY / DXA REASON FOR EXAM: Female, 66 years old. Z780. Patient is postmenopausal. TECHNIQUE: Bone Mineral Density (BMD) measurements of lumbar spine and bilateral hips were obtained. COMPARISON: Comparison is made with prior study 01/10/2020. FINDINGS: Lumbar Spine (L1-L4): g/cm2 (0.846) / T-score (-1.8) / Z-score (-0.1) Findings are suggestive of osteopenia with a moderate fracture risk. Left Femur Total: g/cm2 (0.846) / T-score (-0.8) / Z-score (0.4) Left Femoral Neck: g/cm2 (0.715) / T-score (-1.2) / Z-score (0.3) Right Femur Total: g/cm2 (0.909) / T-score (-0.3) / Z-score (0.9) Right Femoral Neck: g/cm2 (0.772) / T-score (-0.7) / Z-score (0.8) The T-Scores on the most recent prior examination were: Lumbar Spine (L1-L4): There has been worsening of bone density since the previous examination. Left Femur Total: which represents an improvement of 3.1%. Right Femur Total: which represents an improvement of 5.9%. BD/Dexa Bone Density Study IMPRESSION: The patient is considered osteopenic as outlined below according to World Eugene Organization (WHO) criteria with a moderate fracture risk. There has been improvement of bone density since the previous examination. Reference Information: The T-score is the number [...] 1. NIH Osteoporosis and Related Bone Diseases www osteo.org 2. International Society for Clinical Densitometry www iscd.org 3. National Osteoporosis Foundation www nof.org Electronically Signed: Ash Dennis MD at 12:54 EDT Reading Location ID and State: [address] [place] [address] , Service support , CC: Dr. Nehal Vu MD Nitrocellulose Maker: Signed Nehal Vu MD Work Phone: Start: 01-21-2022 End: 01-21-2022 SCRN MAMM (CAD)W/ADI BILAT Procedure Note: See Note; NOTES: [facility] Imaging Services [address] [place] [address] SCRN MAMM (CAD)W/ADI BILAT MR#: [id number] Acct: [id number] Name: BASILIA CAMPUZANO Rep #: [id number] : 1955 F 66 From: Ash sotelo MD PCP: Dr. Nehal Vu MD Status: REG [facility] Study: SCRN MAMM (CAD)W/ADI BILAT Date of Exam: 01/10 06/03 Exam# [id number] Ordering Dr: Nehal Vu MD MAMMOGRAPHY - BILATERAL SCREENING REASON FOR EXAM: Female, 66 years old. Routine annual screening examination. PERTINENT HISTORY: Aunt with breast cancer. TECHNIQUE: Digital bilateral breast adi (3D mammographic acquisition) in the CC and MLO projections. 2-D mediolateral oblique (MLO) and craniocaudad (CC) views of both breasts were obtained. CAD: Full Field Digital Mammography with Computer Added Detection was performed. COMPARISON: Comparison is made with prior study of 01/05/2020 and 07/13/2018. FINDINGS: Breast Composition: The breasts are extremely dense, which lowers the sensitivity of mammography. There are no dominant masses or suspicious calcifications. No other significant abnormalities are identified. There has been no significant change since the prior study. BI/SCRN MAMM (CAD)W/ADI BILAT IMPRESSION: Stable bilateral screening mammogram. Yearly follow-up mammogram recommended. (A) ASSESSMENT CATEGORY: BIRADS Category 1: Negative. A letter regarding these results will be sent to the patient by the facility within 30 days. Approximately 10% of breast cancers are not detected by mammography. A normal mammogram should not delay biopsy of a clinically suspicious abnormality. [id number] Electronically Signed: Ash Dennis MD at 10:07 EDT , CC: Dr. Nehal Vu MD Nitrocellulose Maker: Signed Nehal Vu MD Work Phone: Start: 08-08-2021 End: 08-08-2021 Echo Complete Comments: See Note; NOTES: [facility] [address] [place] [address] Echo Complete 08/08/21 1252 MR#: [id number] Acct: [id number] Name: BASILIA CAMPUZANO Rep #: [id number] : 1955 66 From: Emerson Thrasher MD Attending Dr: Elidia Torres CRIBBER-C Status: REG C Ordering Dr: Elidia Torres NP CRIBBER-C Date: 08/08/21 Location: [facility] Sex: F C Admitted: Reason For Study: MITRAL VALVE INSUFF Procedure This was a 2D Doppler, Color Flow transthoracic echocardiogram. The exam was of adequate technical quality. Exam performed in department. Left Ventricle Normal LV size. Left ventricular systolic function is normal. The estimated ejection fraction is 60 %. No evidence for diastolic dysfunction. No regional wall motion abnormalities noted. Right Ventricle Normal RV size. Normal systolic function. Atria Normal left atrium. Normal right atrium. No doppler evidence for ASD. Mitral Valve There is no mitral annular calcification. Normal mitral valve. Mild (1+) mitral valve insufficiency. Tricuspid Valve Normal tricuspid valve. Mild tricuspid valve insufficiency. Right ventricular systolic pressure estimated to be 28 mmHg. Aortic Valve Trisinus/trileaflet aortic valve. Mild diffuse aortic valve thickening. Pulmonic Valve The pulmonic valve is not well visualized. Great Vessels Normal sized aortic root. Pericardium/Pleural No pericardial effusion. MMode/2D Measurements Calculations LVIDd: 4.2 cm IVSd: 0.86 cm Ao root diam: 2.8 cm LVIDs: 2.4 cm LVPWd: 0.91 cm RVDd: 3.3 cm FS: 43.6 % LAV(MOD-sp2): 54.4 ml LVAd ap4: 21.4 cm2 LVAd ap2: 26.1 cm2 LVLd ap4: 6.0 cm LVLd ap2: 7.9 cm EDV(MOD-sp4): 61.5 ml EDV(MOD-sp2): 76.4 ml EDV(sp4-el): 65.9 ml EDV(sp2-el): 73.3 ml LVAs ap4: 13.7 cm2 LVAs ap2: 13.1 cm2 LVLs ap4: 5.7 cm LVLs ap2: 5.4 cm ESV(MOD-sp4): 28.4 ml ESV(MOD-sp2): 27.3 ml ESV(sp4-el): 27.9 ml ESV(sp2-el): 26.9 ml EF(MOD-sp4): 53.7 % EF(MOD-sp2): 64.2 % EF(sp4-el): 57.6 % SV(MOD-sp4): 33.1 ml SV(MOD-sp2): 49.1 ml SV(sp4-el): 38.0 ml LA dimension(2D): 3.7 cm LA A4 area: 16.8 cm2 Doppler Measurements Calculations MV E max alexa: 92.8 cm/sec Lat Peak E' Alexa: 12.3 cm/sec Med Peak E' Alexa: 10.0 cm/sec MV A max alexa: 68.6 cm/sec E/E' lat: 7.6 E/E' med: 9.3 MV E/A: 1.4 Ao V2 max: 125.0 cm/sec LV V1 max: 114.5 cm/sec PA V2 max: 104.8 cm/sec Ao max P.3 mmHg LV V1 max P.2 mmHg TR max alexa: 248.9 cm/sec TR max P.8 mmHg ECHO/Echo Complete Interpretation Summary Left ventricular systolic function is normal. The estimated ejection fraction is 60 %. Mild (1+) mitral valve insufficiency. Mild tricuspid valve insufficiency. Mild diffuse aortic valve thickening. Right ventricular systolic pressure estimated to be 28 mmHg. No evidence for diastolic dysfunction. _ Ordering Physician: Elidia Torres Referring Physician: Elidia Torres Performed By: Alessandra Del Rio RCS 08/08/21 164 Date Emerson Thrasher MD CC: DANIEL Torres; Dr. Nehal Vu MD Date Dictated: 08/08/21 1252 Date Transcribed: 08/08/211640 Nitrocellulose Maker: Signed Nehal Vu MD Work Phone: Start: 07-04-2021 End: 07-05-2021 Cardiology Visit Report Comments: See Note; NOTES: [facility] [address] [place], [place] [address] OFFICE VISIT Date of Service: 07/04/21 MR#: [id number] Acct: [id number] Name: BASILIA CAMPUZANO Rep #: [id number] : 1955 Provider: DANIEL valdes Age/Sex: 66/F Location: [facility] [facility] Status: Signed HPI [facility] History of Present Illness Details: This is a 66-year-old female that presents here today for a cardiovascular follow-up. In February 2018 she had an abnormal troponin, this was felt to be related to her tachycardia as her heart catheterization was normal. From a cardiac standpoint, the patient is doing well. She states that she will feel an occasional skipped beat-nothing new or worsening. She denies chest pain, pressure or heaviness. She denies SOB, Orthopnea, and PND. She does not have bleeding issues; no blood in urine, stool or nosebleeds. She denies any decrease in energy level, myalgias, or claudication. She does not have edema, or sudden weight gain. She denies dizziness, lightheadedness, syncopal or near syncopal episodes, and headaches. Intake Vital Signs 07/04/21 13:42 Height 5 ft 4 in Weight: 164 lb BMI 28.1 BP 124/76 H Blood Pressure Location Lt brachial Position Sitting Respiration 18 Pulse 54 L Pulse Source Monitor Pulse Oximetry (%) 99 Intake Visit Reasons: 1 y fu Partner Integration Planner Required: No Accompanied by: None Is patient in pain?: No Allergies No Known Allergies Allergy (Verified 07/04/21 14:04) Medications multivitamin 1 ea PO DAILY 03/08/18 [History Confirmed 07/04/21] metoprolol tartrate 25 mg tablet 12.5 mg PO DAILY #45 tab 11/21/19 [Rx Confirmed 07/04/21] alprazolam 0.5 mg tablet 0.5 mg PO QHS PRN 07/04/21 [History Confirmed 07/04/21] cholecalciferol (vitamin D3) 25 mcg (1,000 unit) capsule 25 mcg PO DAILY 07/04/21 [History Confirmed 07/04/21] levothyroxine 75 mcg tablet 88 mcg PO DAILY tab 07/04/21 [History] [facility] Medical History Abnormal cardiac enzyme level Epigastric pain History of Sarah thyroiditis History of left heart catheterization (LHC) ( 03/09/18) Mixed hyperlipidemia Multiple thyroid nodules Non-ST elevation (NSTEMI) myocardial infarction Palpable abdominal aorta Palpitations Prediabetes Syncope Surgical History History of cholecystectomy History of left knee surgery History of lobectomy of thyroid ( 09/10/20) Family History Father Heart problem Brother Diabetes Brother Diabetes Sister Diabetes Sister Paroxysmal supraventricular tachycardia Sister Tachycardia Social History Smoking Status: Never smoker alcohol intake: never ROS Const Const: Negative for fatigue, weakness, fever(s), headache(s), chills, frequent falls, weight gain or weight loss Eyes Eyes: Negative for blind spots, loss of peripheral vision, transient loss of vision, blurry vision, change in vision, double vision, floaters or tunnel vision ENT ENT: Negative for headache(s), dizziness, Nosebleed/epistaxis, balance problems or neck pain Cardio Chest Pain: No Palpitations: Yes (occasional ) feels like its: skipping Edema: None Muscle aches with walking: None Resp Respiratory: Negative for SOB with activity, SOB at rest or SOB orthopnea SOB lying down GI GI: Negative nausea, vomiting, heartburn, bloating, vomiting blood/hematemesis, bright, red blood in stools or black,tarry stools Musc Musc: Negative for muscle aches/ myalgia, muscle weakness, joint pain or balance problems Neuro Neuro: Negative for dizziness, lightheadedness, near syncope, syncope, orthostatic symptoms, frequent falls, headache(s), weakness, blurry vision or double vision Anastacio Hematologic/Lymphatic: Negative for easy bleeding or easy bruising Endo Endo: Negative for fatigue Cardiology Exam Const Appearance: cooperative and no acute distress Orientation: alert and oriented x3 Head Head: normal to inspection Ears: hearing grossly normal bilaterally Nose: external nose normal Face and Sinus: face symmetric Eyes General: appearance normal, both eyes and all related structures Eyelids: eyelids normal Conjunctivae: conjunctivae normal Pupils: PERRL and pupil size EOM: EOM intact bilaterally Neck Neck: normal visual inspection Carotids: Negative bruit Chest Chest inspection: normal inspection of the chest and normal respiratory effort Auscultation: Bilateral: Clear to Auscultation Cardio Palpation: normal PMI Rate: regular rate Rhythm: regular rhythm Heart sounds: S1 normal and S2 normal; Negative rub, gallop or murmur GI GI: normal to inspection and soft; Negative no hepatosplenomegaly Neuro General: patient alert, patient oriented x3 and CN's II-XI intact bilaterally Skin Skin: no rashes or lesions noted Extremities Pulses: Normal: Right Posterior Tibial Pulse, Left Posterior Tibial Pulse, Right Radial Pulse and Left Radial Pulse Lower Extremity Edema: None: Bilateral Psych Psychological: normal affect Supplemental Info Supplemental Information Echocardiogram 03/09/2018: Left ventricular systolic function is normal. The estimated ejection fraction is 65 %. Apical false tendon noted. Mild (1+) eccentric mitral valve insufficiency. Trivial tricuspid valve insufficiency. Trivial pericardial effusion. There are no echocardiographic indications of cardiac tamponade. Right ventricular systolic pressure estimated to be 23 mmHg. No evidence for diastolic dysfunction. Cardiac catheterization 03/01/2018: PROCEDURE(S) PERFORMED LO34-GKH/COR/LV [id number] RENAL ANGIO WITH HEART CATH CLINICAL PROFILE AND INDICATIONS Indications: ACS <= 24 hrs, Suspected CAD Heart Failure: None Stress/Imaging Stress/Image Study Performed: No Angina Classification Anginal Classification w/in 2 Weeks: No symptoms CAD Presentations: Other: Near Syncope; Epigastric Discomfort CONCLUSIONS Elevated Left Ventricular End Diastolic Pressure Normal LV size, wall motion,and systolic function LVEF: by LV gram 65 % Normal coronary arteries Abdominal Aorta: angiographically normal Renal Artieries: angiographically normal RECOMMENDATIONS Risk factor modification Medical therapy DESCRIPTION OF PROCEDURE The patient arrived to the procedure lab. The risks and benefits of the procedure as well as a full description of our services here and current unavailability of surgical backup were fully explained to the patient and/or their significant other prior to the catheterization. The Timeout was completed, verifying the correct patient and procedure. The patient's procedural site was prepped and draped in the usual fashion. Local anesthetic was given subcutaneously to right groin region with Lidocaine 2%. Using a modified Seldinger technique, arterial access was obtained via the right femoral artery, a 4Fr sheath was inserted Left Coronary Artery selective angiography was performed in multiple views using a 4 Fr. JL5 catheter. Right Coronary Artery selective angiography was then performed in multiple views using a 4 Fr. 3DRC catheter. Left Ventriculography was performed in MARINA projection using a 4 Fr. Pigtail catheter. LV to AO pullback pressures were then recorded.The arterial sheath was pulled and manual compression applied until hemostasis is achieved. CORONARY ANGIOGRAPHY DOMINANCE: Right Dominant LEFT HEART ASSESSMENT Left Ventricular Ejection Fraction: by LV Gram 65 % Normal LV wall motion Elevated Left Ventricular End Diastolic Pressure LVEDP: 20 mmHg LEFT MAIN: Angiographically normal LEFT ANTERIOR DECENDING ARTERY: Angiographically normal CIRCUMFLEX ARTERY: Angiographically normal RIGHT CORONARY ARTERY: Angiographically normal VALVE FINDINGS: Normal Aortic Valve function Normal Mitral Valve function AORTIC ROOT: Angiographically normal PERIPHERAL FINDINGS: Abdominal Aorta: Angiographically Normal Right Renal Artery Angiographically normal Left Renal Artery Angiographically non-obstructive Labs: No Data to Display Diagnostics: No Data to Display Pulmonary: No Data to Display Assessment and Plan Assessment and Plan (1) Mitral valve insufficiency: Status: Acute Orders: Orders: Echo Complete Today Plan - Elidia Torres NP, CRIBBER-C: Patient has a history of mitral valve insufficiency. Her most recent echocardiogram from 03/09/2018 demonstrated mild (1+) eccentric mitral valve insufficiency. We will obtain an echocardiogram to evaluate this. (2) Palpitations: Status: Acute Plan - Elidia Torres NP, CRIBBER-C: Patient has a history of palpitations. She does feel an occasional skipped beat. She will continue metoprolol 12.5mg daily. She will continue to monitor for any concerning symptoms. (3) Mixed hyperlipidemia: Status: Chronic Plan - Elidia Torres NP, CRIBBER-C: Patient has a history of hyperlipidemia. Her PCP monitors this. She will continue with aggressive risk factor, and lifestyle modifications. Plan Details Additional Comments: Patient will follow up in 1 year, or sooner if needed. Thank you for allowing me to participate in the care of your patient. Please don't hesitate to call if any issues arise. This note was generated using a voice recognition system and there may be incorrect words, spelling, or punctuation that were not noted when reviewing the office note prior to saving. Follow Up: 12-14 Months (PFM) Coding Level of Care Code Off vis,est,level 4 Diagnoses Mitral valve insufficiency I34.0 Palpitations R00.2 Mixed hyperlipidemia E78.2 Coding Level of Care Code Off vis,est,level 4 Diagnoses Mitral valve insufficiency I34.0 Palpitations R00.2 Mixed hyperlipidemia E78.2 07/04/21 1546 <Electronically signed by Elidia Torres NP CRIBBER-C> Date Elidia Torres CRIBBER CRIBBER-C 07/05/21 1051<Electronically signed by Emerson Thrasher MD> Cosigner Signature: Date (if applicable) Emerson Thrasher MD CC: MD Nehal Larry MD Work Phone: Start: 09-25-2020 End: 09-26-2020 Endocrinology Visit Report Comments: See Note; NOTES: [facility] [address] [place] [address]. [address] [place] [address] OFFICE VISIT Date of Service: 09/25/20 MR#: [id number] Acct: [id number] Name: BASILIA CAMPUZANO Rep #: [id number] : 1955 Provider: Jasmin Nath Age/Sex: 65/F [place] [facility] [place]: Signed Intake Vital Signs 09/25/20 09:52 09/25/20 09:56 Height 5 ft 4 in Weight: 153 lb BMI 26.2 23.8 BP 110/72 Blood Pressure Location Lt brachial Position Sitting Respiration 16 Pulse 49 L Pulse Source Monitor Temp 96.2 F L Temp Source Temporal Pulse Oximetry (%) 98 Oxygen Delivery Method room air Intake Visit Reasons: [id number] CONF Chief Complaint: thyroid Partner Integration Planner Required: No Accompanied by: None Is patient in pain?: No Allergies No Known Allergies Allergy (Verified 09/25/20 09:56) Nurse's Note: Pt would like to talk about thyroid surgery today. [facility] Medical History Abnormal cardiac enzyme level Epigastric pain History of Sarah thyroiditis History of left heart catheterization (LHC) ( 03/09/18) Mixed hyperlipidemia Multiple thyroid nodules Non-ST elevation (NSTEMI) myocardial infarction Palpable abdominal aorta Palpitations Prediabetes Syncope Surgical History History of cholecystectomy History of left knee surgery History of lobectomy of thyroid ( 09/10/20) Family History Father Heart problem Brother Diabetes Brother Diabetes Sister Diabetes Sister Paroxysmal supraventricular tachycardia Sister Tachycardia Social History Smoking Status: Never smoker alcohol intake: never HPI HPI Chief Complaint: thyroid Details: BASILIA CAMPUZANO, is a 65 F who presents to the office today for follow up. She is s/p left lobectomy for follicular neoplasm. Pathology was benign. She complains of a hoarse/raspy voice. She was not hoarse after the surgery, so this may be hypothyroidism. She is feeling fairly well. She is accompanied by her . Exam Const General: cooperative, healthy appearing, comfortable, no acute distress, well developed and not cushingoid Nutritional Appearance: well nourished Orientation: alert, awake and oriented x3 HENMT Head: normal to inspection Ears: hearing grossly normal bilaterally Nose: external nose normal Mouth: oral mucosae normal Eyes General: appearance normal, both eyes and all related structures Alignment and Position: alignment normal Periorbital: periorbital findings normal Eyelids: eyelids normal Conjunctivae: conjunctivae normal Neck Neck: normal visual inspection Neck mass: No Thyroid: asymmetrical (surgical scar healing well, absent left lobe) Lymphatic: no lymphadenopathy noted Chest Chest palpation inspection: normal inspection of the chest Resp Effort Inspection: normal respiratory effort, able to speak in complete sentences, symmetric chest movement, no audible wheezes and no cough Cardio Rate: regular rate Rhythm: regular rhythm GI Inspection: normal to inspection Auscultation: normal bowel sounds Palpation: soft and no hepatosplenomegaly Skin General: no rashes or lesions noted Neuro General: patient alert, patient awake and patient oriented x3 Cranial Nerves: CN's II-XI intact bilaterally Cognition: normal cognition Speech: speech normal Gait: normal gait Motor: muscle tone normal throughout Extrem General: no edema Psych Appearance: grossly normal Mental Status: mental status grossly normal Mood: congruent mood Affect: normal affect Speech and Movement: speech and movement normal Attitude: cooperative Thought Process: normal Thought Content: normal Judgment: judgment good Coding Level of Care Code Off vis,est,level 3 Diagnoses History of lobectomy of thyroid Z90.09 History of Sarah thyroiditis Z86.39 Assessment and Plan Assessment and Plan (1) History of lobectomy of thyroid: Status: Acute Comment: Total right thyroid lobectomy and partial left thyroid lobectomy 09/10/2020 (2) History of Sarah thyroiditis: Status: Acute Orders: Orders: T4 Free Direct 09/25/20 Z90.09, Z86.39 Thyroid Stim Hormone (TSH) 09/25/20 Z90.09, Z86.39 Thyroid Stim Hormone (TSH) 09/25/20 Z90.09, Z86.39 T4 Free Direct 09/25/20 Z90.09, Z86.39 Plan - Dr. Jaspreet Armenta MD: Labs show hypothyroidism. Start levothyroxine 75 mcg. Take levothyroxine on an empty stomach with water at least four hours after eating. Then wait 30-60 minutes before consuming any other food or beverage, especially coffee. Separate levothyroxine from vitamins by at least 4 hours. Stop taking any biotin supplement 4 days prior to having labs drawn. Recheck labs in 10 weeks. I have spent [28] minutes today reviewing labs, records and history. Time includes coordinating care, interpretation of tests, discussion with patient's other health care providers via telephone. This also includes time I spent with the patient for exam, treatment plan and education as well as documenting clinical information. Plan Details Other Medications: New: levothyroxine 75 mcg PO DAILY 90 tabs 3RF 09/26/20 0746 <Electronically signed by Jaspreet Armenta MD> Date Jaspreet Armenta MD Cosigner Signature: Date (if applicable) CC: MD Nehal Larry MD Work Phone: Start: 05-22-2020 EXTERNAL IMAGING External Provider Start: 05-22-2020 EXTERNAL LAB External Provider Start: 05-17-2020 End: 05-20-2020 Endocrinology Visit Report Comments: See Note; NOTES: [facility] [address] [place] [address] OFFICE VISIT Date of Service: 05/17/20 MR#: [id number] Acct: [id number] Name: BASILIA CAMPUZANO Rep #: [id number] : 1955 Provider: Jasmin Nath Age/Sex: 64/F Location[place] [facility] [place]: Signed Intake Vital Signs 05/17/20 Height 5 ft 4 in 05/17/20 Weight: 148 lb 05/17/20 BP 126/60 H 05/17/20 Blood Pressure Location Lt brachial 05/17/20 Position Sitting 05/17/20 Respiration 16 05/17/20 Pulse 97 05/17/20 Pulse Source Monitor 05/17/20 Temp 97.5 F L 05/17/20 Temp Source Temporal Intake Visit Reasons: Thyroid dysfunction/CRIBBER Chief Complaint: thyroid Allergies No Known Allergies Allergy (Verified 05/17/20 10:33) Medications Multivitamin [Daily Multiple Vitamin] 1 ea PO DAILY 03/08/18 [History Confirmed 05/17/20] metoprolol tartrate 25 mg tablet 12.5 mg PO DAILY #45 tab 11/21/19 [Rx Confirmed 05/17/20] [facility] Medical History Multiple thyroid nodules (Acute) Mixed hyperlipidemia (Chronic) Non-ST elevation (NSTEMI) myocardial infarction (Acute) Syncope (Acute) Epigastric pain (Acute) Palpitations (Acute) Abnormal cardiac enzyme level (Acute) Palpable abdominal aorta (Acute) Prediabetes (Acute) History of left heart catheterization (LHC) (Resolved 03/09/18) Surgical History History of cholecystectomy (Resolved) History of left knee surgery (Resolved) Family History Father Heart problem Brother Diabetes Brother Diabetes Sister Diabetes Sister Paroxysmal supraventricular tachycardia Sister Tachycardia Social History (Updated 05/20/20 @ 16:[address] Jaspreet Armenta MD) Smoking Status: Never smoker alcohol intake: never HPI HPI Chief Complaint: thyroid Details: BASILIA CAMPUZANO, is a 64 F who presents to the office today for evaluation and management of multinodular goiter. She reports that she has had a goiter for 5 years. Most recently, she had an ultrasound in December, RIGHT LOBE: The right lobe of the thyroid gland is enlarged and measures 8.4 cm x 3 cm x 3.4 cm. There is a heterogeneous echotexture. There is a dominant predominantly solid nodule in the lower pole of the right lobe of the thyroid measuring 4.5 cm x 2.3 cm x 2.1 cm. Another dominant nodule measuring 1.6 cm x 1.6 x 1.5 cm is seen in the midpole. There is evidence of intranodular vascularity. LEFT LOBE: The left lobe of the thyroid gland is enlarged and measures 7.6 cm x 2.6 x 3.4 cm. There is a heterogeneous echotexture. Multiple nodules are seen. The largest nodule is solid and measures 1.3 cm x 1.7 cm x 1.9 cm. This is in the lower pole. ISTHMUS: The isthmus measures 8.0 mm. The regional lymph nodes are normal. She had FNA of both lobes with Dr. Smith and pathology was benign. The ultrasound shows growth from previous ultrasound. She is not having significant compressive symptoms at this time. She reports that her thyroid labs are normal. ROS Const Constitutional: Positive for weight change; no anorexia, body ache, chills, excessive sweating, fatigue, fever(s), frequent falls, headache(s), decreased energy, malaise, night sweats, snoring, weakness, sleep problems, abnormal sleep pattern, change in appetite or other Eyes Eyes: No blurry vision, change in vision, double vision, discharge, dry eyes, bulging eyes, floaters, visual disturbances, eye pain, light sensitivity, spots in vision, tunnel vision or other ENT ENT: No abnormal hearing, ear pain, ear discharge, ear pressure, hearing loss, tinnitus, dizziness/vertigo, balance problems, nosebleed/epistaxis, nasal congestion, nasal obstruction, nose pain, sinus pressure, sinus pain, nasal discharge, post nasal drip, headache(s), facial pain, dental pain, dry mouth, difficulty swallowing, bad breath, hoarseness, lip swelling, mouth lesions, mouth pain, neck pain, sore throat, tongue swelling, throat swelling or other Cardio Cardiology: No chest pain at rest, chest pain with exertion, leg pain with exertion, excessive sweating, shortness of breath, dyspnea on exertion, generalized swelling, irregular heart rhythm, lightheadedness, orthopnea, radiating jaw, neck or arm pain, fast heart rate, slow heart rate, palpitations or other Musc Musculoskeletal: Positive for muscle cramps; no abnormal walking, joint pain, back pain, deformity, joint swelling, limited range of motion, loss of height, decreased muscle mass, body aches, neck pain, numbness, radiating pain into limb, stiffness, tingling, Arthritis, restless legs, leg pain with exertion, sciatica, leg pain at night or other Neuro Neurology: No abnormal walking, abnormal hearing, abnormal movements, abnormal speech, behavioral changes, confusion, unsteady gait/balance, dizziness, weakness, frequent falls, headache(s), lack of coordination, loss of vision, memory loss, numbness, tingling, visual disturbances, restless legs, fainting, tremor(s) or other Psych Psychiatric: No abnormal sleep pattern, No lack of enjoyment, No anxiety, No behavioral changes, No change in appetite, No confusion, No depression, No difficulty concentrating, No hopelessness, No irritability, No memory loss, No mood swings, No panic attacks, No paranoia, No Thoughts of harming yourself/Others, No hallucinations, No other Anastacio/Lymp Hematologic/Lymphatic: No easy bleeding, easy bruising, enlarged lymph nodes or other Resp Respiratory: No cough, change in phlegm color, chest congestion, excessive phlegm production, hemoptysis, pain on inspiration, shortness of breath, pain with cough, snoring, stridor, wheezing or other Gastro GI: No abdominal pain, belching, bloating, change in bowel habits, change in stool character, coffee ground emesis, constipation, cramping, diarrhea, heartburn, difficulty swallowing, feeling full early, excessive flatus, incontinent of stools, Vomiting blood/hematemesis, blood in stool, loose stools, Black,tarry stools, nausea/dyspepsia, pain with swallowing, vomiting or other Skin Skin: No acne, hair loss, change in hair, nail changes, boil, change in skin color, dry skin, redness, excessive hair growth, yellowing of the skin, lesions, itching, rash, skin pain, skin ulce r, sores, skin swelling, wounds or other Breast Breast: No change in breast shape, breast lump, breast pain, breast skin changes, breast swelling, nipple discharge or other Endo Endocrine: No change in body appearance, cold intolerance, excessive sweating, fatigue, flushing, heat intolerance, increased thirst/drinking, increased hunger, increased urination or other Aller/Imm Allergy/Immunologic: No food intolerance, itchy eyes, lip swelling, seasonal allergy symptoms, throat swelling, tongue swelling, hives, wheezing or other Exam Const General: cooperative, healthy appearing, comfortable, no acute distress, well developed, not cushingoid Nutritional Appearance: well nourished Orientation: alert, awake, oriented x3 HENMT Head: normal to inspection Ears: hearing grossly normal bilaterally Nose: external nose normal Mouth: oral mucosae normal Eyes General: appearance normal, both eyes and all related structures Alignment and Position: alignment normal Periorbital: periorbital findings normal Eyelids: eyelids normal Conjunctivae: conjunctivae normal Neck Neck: normal visual inspection Neck mass: No Thyroid: diffusely enlarged (large goiter) Carotids: no bruits Lymphatic: no lymphadenopathy noted Chest Chest palpation inspection: normal inspection of the chest Resp Effort Inspection: normal respiratory effort, able to speak in complete sentences, symmetric chest movement, no audible wheezes, no cough Auscultation: Bilateral: Clear to Auscultation Cardio Rate: regular rate Rhythm: regular rhythm Pulses: posterior tibial pulses present GI Inspection: normal to inspection Auscultation: normal bowel sounds Palpation: soft, no hepatosplenomegaly Skin General: no rashes or lesions noted Neuro General: alert, awake, oriented x3 Cranial Nerves: CN's II-XI intact bilaterally Cognition: normal cognition Speech: speech normal Gait: normal gait Motor: muscle tone normal throughout Extrem General: no edema Psych Appearance: grossly normal Mental Status: mental status grossly normal Mood: congruent mood Affect: normal affect Speech and Movement: speech and movement normal Attitude: cooperative Thought Process: normal Thought Content: normal Judgment: judgment good Assessment Plan Problems 1. Multinodular goiter (nontoxic) E04.2 Plan Due to size of thyroid and size of dominant nodule, I recommend thyroidectomy. I gave the patient some names of surgeons. She will check with her insurance company. I discussed plan with patient and . I have spent [58] minutes today reviewing labs, records and history. Time includes coordinating care, interpretation of tests, discussion with patient's other health care providers via telephone. This also includes time I spent with the patient for exam, treatment plan and education as well as documenting clinical information. Coding Level of Care Code Off vis,new,level 4 Diagnoses Multinodular goiter (nontoxic) E04.2 05/20/20 1659 <Electronically signed by Jaspreet Armenta MD> Date Jaspreet Armenta MD Cosigner Signature: Date (if applicable) CC: MD Nehal Larry Start: 03-14-2020 End: 03-14-2020 Virtual Office Visit Comments: See Note; NOTES: [facility] [address] [place] [address] OFFICE VISIT Date of Service: 03/14/20 MR#: [id number] Acct: [id number] Patient: BASILIA CAMPUZANO Rep #: [id number] : 1955 Provider: Dr. Emerson sorensen MD Age/Sex: 64/F [place] [facility] [place]: Signed Intake Vital Signs 03/14/20 Comment Vital Signs NOT obtained Intake Visit Reasons: 1 y fu/PHONE VISIT Allergies No Known Allergies Allergy (Verified 03/14/20 15:49) Medications Multivitamin [Daily Multiple Vitamin] 1 ea PO DAILY 03/08/18 [History Confirmed 03/14/20] metoprolol tartrate 25 mg tablet 12.5 mg PO DAILY #45 tab 11/21/19 [Rx Confirmed 03/14/20] PFSH Medical History Multiple thyroid nodules (Acute) Mixed hyperlipidemia (Chronic) Non-ST elevation (NSTEMI) myocardial infarction (Acute) Syncope (Acute) Epigastric pain (Acute) Palpitations (Acute) Abnormal cardiac enzyme level (Acute) Palpable abdominal aorta (Acute) Prediabetes (Acute) History of left heart catheterization (LHC) (Resolved 03/09/18) Surgical History History of cholecystectomy (Resolved) History of left knee surgery (Resolved) Family History Father Heart problem Brother Diabetes Brother Diabetes Sister Diabetes Sister Paroxysmal supraventricular tachycardia Sister Tachycardia Social History (Updated 03/14/20 @ 17:[address] Emerson Thrasher MD) Smoking Status: Never smoker alcohol intake: never HPI HPI Details: Patient was informed that this visit will be billed to patient. This visit was conducted during COVID- pandemic. BASILIA CAMPUZANO, is a 64 F who presents to the office today via telephone visit secondary to the ongoing coronavirus pandemic for follow-up of her palpitations with notations of previous cardiac ectopy on her 30-day ambulatory event monitor. Overall she states on her very low-dose beta-kenrick therapy she has been doing very well. She has had no concerning symptoms or adverse events. There has been no evidence of near syncope or syncope. She has had no other concerning chest discomfort or difficulty breathing. She has not required any additional cardiovascular studies or procedures being performed. ROS Const Constitutional: No anorexia, body ache, chills, excessive sweating, fatigue, fever(s), frequent falls, headache(s), decreased energy, malaise, night sweats, snoring, weakness, weight change, sleep problems, abnormal sleep pattern, change in appetite or other Eyes Eyes: No visual disturbances ENT ENT: No abnormal hearing, headache(s) or neck pain Resp Respiratory: No cough, change in phlegm color, chest congestion, excessive phlegm production, hemoptysis, pain on inspiration, shortness of breath, pain with cough, snoring, stridor, wheezing or other Cardio Cardiology: Positive for palpitations (occasional fast); no chest pain at rest, chest pain with exertion, leg pain with exertion, excessive sweating, shortness of breath, dyspnea on exertion, generalized swelling, irregular heart rhythm, lightheadedness, orthopnea, radiating jaw, neck or arm pain, fast heart rate, slow heart rate or other Musc Musculoskeletal: No abnormal walking, joint pain, back pain, deformity, joint swelling, limited range of motion, loss of height, muscle cramps, muscle weakness, decreased muscle mass, body aches, neck pain, numbness, radiating pain into limb, stiffness, tingling or other Neuro Neurology: No abnormal walking, abnormal hearing, abnormal movements, abnormal speech, behavioral changes, confusion, unsteady gait/balance, dizziness, weakness, frequent falls, headache(s), lack of coordination, loss of vision, memory loss, numbness, tingling, visual disturbances, restless legs, fainting, tremor(s) or other Psych Psychiatric: No abnormal sleep pattern, No behavioral changes, No change in appetite, No confusion, No memory loss Endo Endocrine: No excessive sweating or fatigue Aller/Imm Allergy/Immunologic: No wheezing Exam Const Other: Examination not performed secondary to telephone visit secondary to COVID-19. [facility] [place] Musculoskeletal: No muscle weakness Details: Details:: Exam was limited due to phone visit with no video. Supplemental Info Transthoracic echocardiogram: 03/09/2018 Interpretation Summary Left ventricular systolic function is normal. The estimated ejection fraction is 65 %. Apical false tendon noted. Mild (1+) eccentric mitral valve insufficiency. Trivial tricuspid valve insufficiency. Trivial pericardial effusion. There are no echocardiographic indications of cardiac tamponade. Right ventricular systolic pressure estimated to be 23 mmHg. No evidence for diastolic dysfunction. Cardiac catheterization on 03/09/2018 CORONARY ANGIOGRAPHY DOMINANCE: Right Dominant LEFT HEART ASSESSMENT Left Ventricular Ejection Fraction: by LV Gram 65 % Normal LV wall motion Elevated Left Ventricular End Diastolic Pressure LVEDP: 20 mmHg LEFT MAIN: Angiographically normal LEFT ANTERIOR DECENDING ARTERY: Angiographically normal CIRCUMFLEX ARTERY: Angiographically normal RIGHT CORONARY ARTERY: Angiographically normal VALVE FINDINGS: Normal Aortic Valve function Normal Mitral Valve function AORTIC ROOT: Angiographically normal PERIPHERAL FINDINGS: Abdominal Aorta: Angiographically Normal Right Renal Artery Angiographically normal Left Renal Artery Angiographically non-obstructive Quality Reporting Medication Reconciliation ([facility] 68) metoprolol tartrate 12.5 mg (1/2 x 25 mg) PO DAILY multivitamin 1 ea PO DAILY Tobacco Screening ([facility] 138) Smoking Status: Never smoker Assessment Plan Problems 1. Palpitations R00.2 Plan At the present time she appears to be doing well with no acute symptoms or adverse events. She will continue her current medical therapy. Plan Detail Additional Comments She will be asked to have an outpatient follow-up in approximately a year unless otherwise needed. Thank you for allowing me to participate in the care of your patient. Please don't hesitate to call if any issues arise. This note was generated using a voice recognition system and there may be incorrect words, spelling or punctuation that were not noted when reviewing the office note prior to saving. Follow Up 1 Year (with PFM) Coding Level of Care Code Level 2 Telephone Diagnoses Palpitations R00.2 03/14/20 4067 <Electronically signed by Emerson Thrasher MD> Date Emerson Thrasher MD Cosigner Signature: Date (if applicable) CC: MD Nehal Larry Start: 01-31-2020 End: 01-31-2020 Surgery Visit Report Comments: See Note; NOTES: [facility] [address] [place] [address]. [address] [place] [address] OFFICE VISIT Date of Service: 01/31/20 MR#: [id number] Acct: [id number] Name: BASILIA CAMPUZANO Rep #: [id number] : 1955 Provider: Dr. Pb bundy MD Age/Sex: 64/F Location: [facility] Status: Signed Intake Intake Visit Reasons: right thyroid FNA x 2, Left x 1 Chief Complaint: thyroid FNA Partner Integration Planner Required: No Is patient in pain?: No Allergies No Known Allergies Allergy (Verified 01/31/20 15:19) Medications Multivitamin [Daily Multiple Vitamin] 1 ea PO DAILY 03/08/18 [History Confirmed 01/31/20] metoprolol tartrate 25 mg tablet 12.5 mg PO DAILY #45 tab 11/21/19 [Rx Confirmed 01/31/20] [facility] Medical History Multiple thyroid nodules (Acute) Mixed hyperlipidemia (Chronic) Non-ST elevation (NSTEMI) myocardial infarction (Acute) Syncope (Acute) Epigastric pain (Acute) Palpitations (Acute) Abnormal cardiac enzyme level (Acute) Palpable abdominal aorta (Acute) Prediabetes (Acute) Surgical History S/P cardiac catheterization (Resolved 03/09/18) History of cholecystectomy (Resolved) History of left knee surgery (Resolved) Family History Father Heart problem Brother Diabetes Brother Diabetes Sister Diabetes Sister Paroxysmal supraventricular tachycardia Sister Tachycardia Social History (Updated 01/31/20 @ 15:[address] Pb Smith MD) Smoking Status: Never smoker alcohol intake: never HPI HPI HPI: BASILIA CAMPUZANO, is a 64 F who presents to the office today for bilateral thyroid ultrasound guided fine needle aspiration HPI HPI HPI: BASILIA CAMPUZANO, is a 64 F who presents to the office today for Office Procedures Fine Needle Aspiration Provider Documentation Details: Ultrasound-guided bilateral thyroid nodule fine needle aspiration Timeout and informed consent was obtained. 64-year-old female was taken to the procedure room placed supine on the table. The neck was gently extended prepped with Betadine. Ultrasound was performed. The right lobe was quite enlarged. There was a diffuse heterogenous nodular nature. Admittedly clearly defining a right lobe 4.5 x 2.3 x 2.1 cm nodule was extraordinarily challenging due to diffuse heterogeneity of the gland. I did find an area with some microcalcifications. Under ultrasound guidance I used 1% lidocaine mixed 50-50 with 0.5% Marcaine a total of 1 cc was used. Then I advanced a 25-gauge needle under ultrasound guidance into this nodular area with the microcalcifications and a rapid rjfw-ibo-rsxhu motion was performed. Specimen was obtained and smeared out on slides. 3 separate passes were performed. The slides were treated immediately with fixative. I did not clearly see is separate 1.6 cm nodule in the right. I elected to inspect the left lobe of the gland and is similar diffuse enlargement and heterogeneity was identified. More in the mid left lobe I saw separate count of nodular area. As on the right local was instilled and as on the right a 25-gauge needle was advanced in that nodule on the left and a rapid iios-lsr-bzztq motion performed. Specimen was obtained and smeared on slides and treated with fixative. 3 passes performed. She tolerated the procedure very well Clinical examination is one most consistent with a diffuse multilevel nodular goiter with diffuse significant thyroid enlargement Pb Smith M.D., F.A.C.S. FNA [id number] Thyroid (Bilateral) Assessment Plan Problems 1. Multinodular goiter E04.2 Plan Clinical findings consistent with thyromegaly and multinodular goiter. Cytology is pending. This is quite a sizable gland. If cytology is benign then I recommend to the patient endocrinology consultation. I have commented to the patient that if thyroidectomy is required that I would recommend tertiary specialty referral secondary to the significant gland enlargement. She has had an opportunity to ask and have questions answered. She was accompanied by her today. We will notify her of cytology results as soon as they become available. Copy: Dr. Nehal Smith M.D., F.A.C.S. Orders Orders: Fine Needle Aspiration Today E04.2 Coding Level of Care Code Attention Rent And Housing Investigator Diagnoses Multinodular goiter E04.2 Additional Codes FNA - Fine Needle Aspiration: 41907 Thyroid (60664) 01/31/20 1550 <Electronically signed by Pb Smith MD> Date Pb Smith MD Cosigner Signature: Date (if applicable) CC: MD Nehal Larry Start: 01-22-2020 End: 01-23-2020 Surgery Visit Report Comments: See Note; NOTES: [facility] [address] [place] [address] OFFICE VISIT Date of Service: 01/22/20 MR#: [id number] Acct: [id number] Name: BASILIA CAMPUZANO Rep #: [id number] : 1955 Provider: Dr. Pb bundy MD Age/Sex: 64/F Location: [facility] Status: Signed Intake Vital Signs 01/22/20 Height 5 ft 3.5 in 01/22/20 Weight: 140 lb 01/22/20 BP 118/70 01/22/20 Blood Pressure Location Lt brachial 01/22/20 Position Sitting 01/22/20 Respiration 18 01/22/20 BMI 23.8 Intake Visit Reasons: Thyroid nodules Chief Complaint: thyroid nodules Partner Integration Planner Required: No Is patient in pain?: No Allergies No Known Allergies Allergy (Verified 01/22/20 15:23) Medications Multivitamin [Daily Multiple Vitamin] 1 ea PO DAILY 03/08/18 [History Confirmed 01/22/20] metoprolol tartrate 25 mg tablet 12.5 mg PO DAILY #45 tab 11/21/19 [Rx Confirmed 01/22/20] [facility] Medical History Mixed hyperlipidemia (Chronic) Non-ST elevation (NSTEMI) myocardial infarction (Acute) Syncope (Acute) Epigastric pain (Acute) Palpitations (Acute) Abnormal cardiac enzyme level (Acute) Palpable abdominal aorta (Acute) Prediabetes (Acute) Surgical History S/P cardiac catheterization (Resolved 03/09/18) History of cholecystectomy (Resolved) History of left knee surgery (Resolved) Family History Father Heart problem Brother Diabetes Brother Diabetes Sister Diabetes Sister Paroxysmal supraventricular tachycardia Sister Tachycardia Social History (Updated 01/22/20 @ 16:[address] Pb Smith MD) Smoking Status: Never smoker alcohol intake: never HPI HPI HPI: BASILIA CAMPUZANO, is a 64 F who presents to the office today for surgical consultation regarding a enlarging thyroid and enlarging thyroid nodules. The patient is referred by Dr. Nehal Vu and a written copy of my surgical consult recommendations will be returned to her. The patient actually is asymtomatic. No hoarseness no pain no difficulty swallowing. She has no family history of thyroid cancer. She is not on any thyroid medication. She does not recall when she would have had her most recent thyroid laboratory. She states about a year ago she had problems with tachycardia after a long trip from [place]. She has been placed on low-dose metoprolol therapy. She denies CA or stroke. She is not on any anticoagulants. On chart review however it is documented that she had a non-ST segment elevation CA and a cardiac catheterization approximate February 2018. This is not as she had described to me. She exercises routinely walking and jogging multiple days per week. 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 That ultrasound demonstrated the right lobe to measure 8 x 2.6 x 2.9 cm with a lower pole nodule measuring 1.8 x 1.8 x 2.4 cm. The left lobe at that time measured 6.7 x 2.7 x 2.6 cm. The left lower pole nodule measured 1.5 x 1.5 x 1.6 cm. It is of note that these findings were similar to her previous thyroid ultrasound of June 11, 2015 January 05, 2020 [facility] Imaging Services [address] [place] [address] Thyroid MR#: [id number]:[id number] Name: BASILIA CAMPUZANO #:[id number] : 1955F 64 From: Ash Dennis MD PCP:Dr. Nehal Vu MD [facility] Study:Thyroid Date of Exam:01/05/20 Exam#[id number] Ordering Dr: Nehal Vu MD STUDY: THYROID ULTRASOUND REASON FOR EXAM: Female, 64 years old. NODULES TECHNIQUE: Ultrasound evaluation of the thyroid was performed with real-time and static mills-scale imaging. COMPARISON: Comparison is made with prior study dated 05/26/2016. FINDINGS: RIGHT LOBE: The right lobe of the thyroid gland is enlarged and measures 8.4 cm x 3 cm x 3.4 cm. There is a heterogeneous echotexture. There is a dominant predominantly solid nodule in the lower pole of the right lobe of the thyroid measuring 4.5 cm x 2.3 cm x 2.1 cm. Another dominant nodule measuring 1.6 cm x 1.6 x 1.5 cm is seen in the midpole. There is evidence of intranodular vascularity. LEFT LOBE: The left lobe of the thyroid gland is enlarged and measures 7.6 cm x 2.6 x 3.4 cm. There is a heterogeneous echotexture. Multiple nodules are seen. The largest nodule is solid and measures 1.3 cm x 1.7 cm x 1.9 cm. This is in the lower pole. ISTHMUS: The isthmus measures 8.0 mm. The regional lymph nodes are normal. US/Thyroid IMPRESSION: Enlarged thyroid gland with dominant nodules in both lobes as described. The largest nodule is in the lower pole of the right lobe measuring 4.5 size by 2.3 cm x 2.1 cm. These have increased in size as compared to prior study. Electronically Signed: Ash Jeannie, at 11:16 EDT , Service support , HPI HPI HPI: BASILIA CAMPUZANO, is a 64 F who presents to the office today for ROS General General: No weight change, appetite, fatigue, colon cancer, breast cancer or weakness HEENT HEENT: No difficulty swallowing, eye injury, eye surgery, swollen glands or hoarseness Endo Endocrine: No thyroid disease, diabetes mellitus, thyroid cancer, Hair loss, heat intolerance or cold intolerance Skin Skin: No rash or changing moles Breast Breast: No left breast lump, right breast lump, nipple discharge, breast pain, abnormal mammogram, abnormal US or breast enlargement Musc Musculoskeletal: No back problems, arthritis, rheumatoid arthritis, gout or joint pain Cardio Cardiovascular: No murmur, pacemaker, heart disease, atrial fibrillation, high blood pressure, heart attack, heart stent, palpitations, shortness of breat with exertion or chest pain Psych Psychiatric: Yes anxiety; no depression or hearing voices Resp Respiratory: No shortness of breath, No sleep apnea, No cough, No COPD, No asthma, No emphysema, No wheezing Gastro Gastrointestinal: No abdominal pain, No nausea or vomiting, No diarrhea, No constipation, No blood in stool, No acid reflux, No hemorrhoids, No ulcers, No gallbladder problem, No black,tarry stools Anastacio Hematologic: No blood thinners, No blood disorders, No bleeding, No anemia, No blood clots Neuro Neurologic: No system reviewed and no additional complaints, except as docu, No as per HPI, No abnormal walking, No abnormal hearing, No abnormal movements, No abnormal speech, No behavioral changes, No burning sensations, No confusion, No seizure-like activity, No unsteadiness, No dizziness, No localized weakness, No frequent falls, No headache(s), No lack of coordination, No loss of vision, No memory loss, No numbness, No other visual disturbances, No radiating pain, No restless legs, No sensory deficit, No fainting, No tingling, No tremor(s), No weakness, No other Exam Const General: cooperative, healthy appearing, comfortable, no acute distress, well developed, well groomed Nutritional Appearance: average body habitus Orientation: alert, awake [facility] Head: normal to inspection Eyes General: appearance normal, both eyes and all related structures Neck Other: Neck: On visual inspection thyroid is visible but does not appear to be anteriorly protruding. On clinical palpation however it is evident that it is a sizable gland with more deeper placement. It appears to be mostly involved in the neck and likely does not have a significant retrosternal component. It is nontender. Diffusely enlarged. No cervical adenopathy Carotids are 3+ no bruits Chvostek is negative Chest Breast Palpation: No nipple discharge Resp Effort Inspection: normal respiratory effort Auscultation: clear to auscultation bilaterally Cardio Rate: regular rate Rhythm: regular rhythm Heart Sounds: no murmurs Assessment Plan Problems 1. Multiple thyroid nodules E04.2 Plan 64-year-old female with asymptomatic thyroid enlargement and multiple thyroid nodules with a dominant 4.5 cm nodule right lower pole and an additional 1.6 cm nodule midpole right and a 1.9 cm lower left nodule Although the right thyroid largest nodule is quite dominant I do recommend the patient an ultrasound-guided fine-needle aspiration of these nodules to try to assist with then further surgical determination. The gland size is notable per patient size. This could indeed be a technically challenging procedure and might even benefit from tertiary referral. She has had an opportunity to ask and have questions answered. I have further discussed total thyroidectomy with some of the potential risks involving recurrent laryngeal nerve and parathyroids. She has had an opportunity ask and have questions answered. We will schedule her and have her return at earliest convenience for the fine-needle aspiration of multiple nodules. I very much appreciate the kind opportunity of assisting with his surgical care. Copy: Dr. Nehal Smith M.D., F.A.C.S. Coding Level of Care Code 49887 Diagnoses Multiple thyroid nodules E04.2 01/22/20 1605 <Electronically signed by Pb Smith MD> Date Pb Smith MD Cosigner Signature: Date (if applicable) CC: MD Nehal Larry Start: 01-10-2020 End: 01-10-2020 Dexa Bone Density Study Comments: See Note; NOTES: [facility] Imaging Services [address] [place] [address] Dexa Bone Density Study MR#: [id number] Acct: [id number] Name: BASILIA CAMPUZANO Rep #: [id number] : 1955 F 64 From: Ash sotelo MD PCP: Dr. Nehal Vu MD Status: [facility] Study: Dexa Bone Density Study Date of Exam: 01/10/20 Exam# [id number] Ordering Dr: Nehal Vu MD STUDY: DUAL ENERGY X-RAY ABSORPTIOMETRY / DXA REASON FOR EXAM: Female, 64 years old. 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 COMPARISON: Comparison is made with prior study dated 06/22/2017. FINDINGS: Lumbar Spine (L1-L4): g/cm2 (1.015) / T-score (-1.4) / Z-score (0.0) Findings are suggestive of osteopenia with a low fracture risk. Left Femur Total: g/cm2 (0.883) / T-score (-1.0) / Z-score (0.1) Left Femoral Neck: g/cm2 (0.933) / T-score (-0.8) / Z-score (0.6) Right Femur Total: g/cm2 (0.922) / T-score (-0.7) / Z-score (0.4) Right Femoral Neck: g/cm2 (0.965) / T-score (-0.5) / Z-score (0.8) The T-Scores on the most recent prior examination were: Lumbar Spine (L1-L4): There has been worsening of bone density since the previous examination. Left Femur Total: which represents a worsening of 7.4%. Right Femur Total: which represents a worsening of 7%. BD/Dexa Bone Density Study IMPRESSION: The patient is considered osteopenic as outlined below according to World Eugene Organization (WHO) criteria with a low fracture risk. There has been worsening of bone density since the previous examination. Reference Information: The T-score is the number [...] National Osteoporosis Foundation http://www.nof.org Electronically Signed: Ash Dennis, at 13:37 EDT , Service support , CC: Dr. Nehal Vu MD Nitrocellulose Maker: Signed Nehal Vu Work Phone: Start: 01-05-2020 End: 01-05-2020 SCREEN MAMM (CAD) W/ADI BILAT Comments: See Note; NOTES: [facility] Imaging Services [address] [place] [address] SCREEN MAMM (CAD) W/ADI BILAT MR#: [id number] Acct: [id number] Name: BASILIA CAMPUZANO Rep #: [id number] : 1955 F 64 From: Ash sotelo MD PCP: Dr. Nehal Vu MD Status: [facility] Study: SCREEN MAMM (CAD) W/ADI BILAT Date of Exam: 0 01/05/20 Exam# [id number] Ordering Dr: Nehal Vu MD MAMMOGRAPHY - BILATERAL SCREENING REASON FOR EXAM: Female, 64 years old. Routine annual screening examination. PERTINENT HISTORY: Aunt with breast cancer. TECHNIQUE: Digital bilateral breast adi (3D mammographic acquisition) in the CC and MLO projections. 2-D mediolateral oblique (MLO) and craniocaudad (CC) views of both breasts were obtained. CAD: Full Field Digital Mammography with Computer Added Detection was performed. COMPARISON: Comparison is made with prior examination dated 07/13/2018 and 06/22/2017. FINDINGS: Breast Composition: The breasts are extremely dense, which lowers the sensitivity of mammography. There are no dominant masses or suspicious calcifications. No other significant abnormalities are identified. There has been no significant change since the prior study. BI/SCREEN MAMM (CAD) W/ADI BILAT IMPRESSION: Stable bilateral screening mammogram. Yearly follow-up mammogram recommended. (A) ASSESSMENT CATEGORY: BIRADS Category 1: Negative. A letter regarding these results will be sent to the patient by the facility within 30 days. Approximately 10% of breast cancers are not detected by mammography. A normal mammogram should not delay biopsy of a clinically suspicious abnormality. [id number] Electronically Signed: Ash Dennis, at 13:14 EDT , Service support , CC: Dr. Nehal Vu MD Nitrocellulose Maker: Signed Nehal Vu Work Phone: Start: 01-05-2020 End: 01-05-2020 Thyroid Comments: See Note; NOTES: [facility] Imaging Services [address] [place] [address] Thyroid MR#: [id number] Acct: [id number] Name: BASILIA CAMPUZANO Rep #: [id number] : 1955 F 64 From: Ash sotelo MD PCP: Dr. Nehal Vu MD Status: REG CLI Study: Thyroid Date of Exam: 01/05/20 Exam# [id number] Ordering Dr: Nehal Vu MD STUDY: THYROID ULTRASOUND REASON FOR EXAM: Female, 64 years old. NODULES TECHNIQUE: Ultrasound evaluation of the thyroid was performed with real-time and static mills-scale imaging. COMPARISON: Comparison is made with prior study dated 05/26/2016. FINDINGS: RIGHT LOBE: The right lobe of the thyroid gland is enlarged and measures 8.4 cm x 3 cm x 3.4 cm. There is a heterogeneous echotexture. There is a dominant predominantly solid nodule in the lower pole of the right lobe of the thyroid measuring 4.5 cm x 2.3 cm x 2.1 cm. Another dominant nodule measuring 1.6 cm x 1.6 x 1.5 cm is seen in the midpole. There is evidence of intranodular vascularity. LEFT LOBE: The left lobe of the thyroid gland is enlarged and measures 7.6 cm x 2.6 x 3.4 cm. There is a heterogeneous echotexture. Multiple nodules are seen. The largest nodule is solid and measures 1.3 cm x 1.7 cm x 1.9 cm. This is in the lower pole. ISTHMUS: The isthmus measures 8.0 mm. The regional lymph nodes are normal. US/Thyroid IMPRESSION: Enlarged thyroid gland with dominant nodules in both lobes as described. The largest nodule is in the lower pole of the right lobe measuring 4.5 size by 2.3 cm x 2.1 cm. These have increased in size as compared to prior study. Electronically Signed: Ash Dennis, at 11:16 EDT , Service support , CC: Dr. Nehal Vu MD Nitrocellulose Maker: Signed Nehal Vu Work Phone: Start: 11-10-2018 End: 11-14-2018 Cardiology Visit Report Comments: See Note; NOTES: [facility] [address] [facility] [address] [place] [address] OFFICE VISIT Date of Service: 11/09/18 MR#: [id number] Acct: [id number] Name: BASILIA CAMPUZANO Rep #: [id number] : 1955 Provider: Yina Roger Age/Sex: 63/F Location: [facility] [place] Status: Signed HPI [facility] History of Present Illness Details: This is a 63-year-old female that presents here today for a cardiovascular follow-up. In February 2018 she had an abnormal troponin, this was felt to be related to her tachycardia as her heart catheterization was normal. Pt had one episode of palpitations, these lasted approx 2 minutes. It has improved since she was here last time. She does not have any chest pain/heaviness/tightness. She does not have any worsening SOB. She does not have any lightheadedness/dizziness. She does not have any syncope. She does not have any edema. Intake Vital Signs11/09/18 Height 5 ft 4 in 11/09/18 Weight: 139 lb 11/09/18 Body Mass Index (BMI) 23.8 11/09/18 Blood Pressure 108/68 11/09/18 Blood Pressure Location Lt brachial Intake Visit Reasons: 6 m Partner Integration Planner Required: No Accompanied by: None Is patient in pain?: No Allergies No Known Allergies Allergy (Verified 11/09/18 11:35) Medications Multivitamin [Daily Multiple Vitamin] 1 ea PO DAILY 03/08/18 [History Confirmed 11/09/18] metoprolol tartrate 25 mg tablet 12.5 mg PO DAILY #45 tab 11/09/18 [Rx Confirmed 11/09/18] PFS Medical History (Updated 09/23/18 @ 11:56 by Yina Roche) Mixed hyperlipidemia (Chronic) Non-ST elevation (NSTEMI) myocardial infarction (Acute) Syncope (Acute) Epigastric pain (Acute) Palpitations (Acute) Abnormal cardiac enzyme level (Acute) Palpable abdominal aorta (Acute) Prediabetes (Acute) Surgical History (Updated 09/21/18 @ 08:30 by Yina Roche) S/P cardiac catheterization (Resolved 03/09/18) History of cholecystectomy (Resolved) History of left knee surgery (Resolved) Family History (Updated 03/10/18 @ 10:06 by Yina Roche) Father Heart problem Brother Diabetes Brother Diabetes Sister Diabetes Sister Paroxysmal supraventricular tachycardia Sister Tachycardia Social History (Updated 11/10/18 @ 12:06 by REYNALDO Buckner) Smoking Status: Never smoker alcohol intake: never ROS Const Const: Negative for fatigue, weakness, fever(s) or headache(s) Eyes Eyes: Negative for blind spots, loss of peripheral vision or transient loss of vision ENT ENT: Negative for headache(s), dizziness, tinnitus or Nosebleed/epistaxis Cardio Chest Pain: No Palpitations: Yes Edema: None Muscle aches with walking: None Resp Respiratory: Negative for SOB with activity, SOB at rest, SOB orthopnea\SOB lying down or Cough GI GI: Negative nausea, vomiting, heartburn or vomiting blood/hematemesis : Negative for hematuria Musc Musc: Negative for muscle aches/ myalgia Neuro Neuro: Negative for dizziness, lightheadedness, near syncope, syncope, orthostatic symptoms, headache(s) or weakness Anastacio Hematologic/Lymphatic: Negative for easy bleeding Endo Endo: Negative for fatigue Cardiology Exam Const Appearance: cooperative, no acute distress and well developed Orientation: alert, awake and oriented x3 Head Head: normocephalic and atraumatic Mouth: moist mucous membranes Eyes General: appearance normal, both eyes and all related structures Conjunctivae: conjunctivae normal Pupils: PERRL EOM: EOM intact bilaterally Neck Neck: normal visual inspection, no lymphadenopathy and no JVD Carotids: Negative bruit Neck Mass: Negative Neck mass Chest Chest inspection: normal inspection of the chest and symmetric chest movement Auscultation: Bilateral: Clear to Auscultation Cardio Palpation: normal PMI Rate: regular rate Rhythm: regular rhythm Heart sounds: S1 normal and S2 normal; negative rub, gallop or murmur GI GI: normal to inspection, soft, no hepatosplenomegaly and bowel sounds present; negative tender Neuro General: alert, awake, oriented x3, CN's II-XI intact bilaterally and moves all extremities Extremities Pulses: Normal: Right Posterior Tibial Pulse, Left Posterior Tibial Pulse, Right Radial Pulse, Left Radial Pulse Lower Extremity Edema: None: Bilateral Psych Psychological: normal affect Assessment AND Plan 1. Palpitations R00.2 Plan Patient has not had any recurrence of irregular heartbeats. She will continue with her current dose of beta-kenrick. Plan Detail Other Medications Refilled: Additional Comments Thank you for allowing us to participate in patient's plan of care, if you have any questions please do not hesitate to call. This note was generated using a voice recognition system and there may be incorrect words, spelling or punctuation errors that were not noted when reviewing the office note prior to saving. Follow Up 1 Year (PFM) 11/09/18 (please give pt portal information) Coding Level of Care Code Off vis,est,level 3 Diagnoses Palpitations R00.2 Coding Level of Care Code Off vis,est,level 3 Diagnoses Palpitations R00.2 Supplemental Info Supplemental Information Transthoracic echocardiogram: 03/09/2018 Interpretation Summary Left ventricular systolic function is normal. The estimated ejection fraction is 65 %. Apical false tendon noted. Mild (1+) eccentric mitral valve insufficiency. Trivial tricuspid valve insufficiency. Trivial pericardial effusion. There are no echocardiographic indications of cardiac tamponade. Right ventricular systolic pressure estimated to be 23 mmHg. No evidence for diastolic dysfunction. Cardiac catheterization on 03/09/2018 CORONARY ANGIOGRAPHY DOMINANCE: Right Dominant LEFT HEART ASSESSMENT Left Ventricular Ejection Fraction: by LV Gram 65 % Normal LV wall motion Elevated Left Ventricular End Diastolic Pressure LVEDP: 20 mmHg LEFT MAIN: Angiographically normal LEFT ANTERIOR DECENDING ARTERY: Angiographically normal CIRCUMFLEX ARTERY: Angiographically normal RIGHT CORONARY ARTERY: Angiographically normal VALVE FINDINGS: Normal Aortic Valve function Normal Mitral Valve function AORTIC ROOT: Angiographically normal PERIPHERAL FINDINGS: Abdominal Aorta: Angiographically Normal Right Renal Artery Angiographically normal Left Renal Artery Angiographically non-obstructive Labs LDL Cholesterol 110 mg/dL (0-130) 03/09/18 HDL Cholesterol 62 mg/dL (40-) 03/09/18 Triglycerides 49 mg/dL (-199) 03/09/18 VLDL Cholesterol 10 mg/dL (5-40) 03/09/18 Diagnostics Electrocardiogram 03/25/18 Echocardiogram 03/09/18 Cardiac Catheterization 03/09/18 Chest X-Ray 03/08/18 11/10/18 1206 <Electronically signed by Yina JACOBS> Date Yina JACOBS Cosigner Signature: Date (if applicable) CC: Nehal Vu Start: 07-20-2018 End: 07-21-2018 Aorta Comments: See Note; NOTES: [facility] Imaging Services [address] [place] [address] Aorta MR#: [id number] Acct: [id number] Name: BASILIA CAMPUZANO Rep #: [id number] : 1955 F 63 From: Eren Vaca PCP: Nehal Vu MD Status: REG CLI Study: Aorta Date of Exam: 07/20/18 Exam# [id number] Ordering Dr: Nehal Vu MD PROCEDURES: ULTRASOUND AORTA REASON FOR EXAM: Female, 63 years old. Abdominal aortic aneurysm screening. TECHNIQUE: Ultrasound evaluation of the aorta was performed with real-time and static mills-scale imaging. COMPARISON: March 09, 2019. FINDINGS: There is no elongation or tortuosity of the abdominal aorta. The proximal, mid and distal abdominal aorta measure 2.1 x 2.4 cm, 1.5 x 1.9 cm and 1.6 x 1.9 cm in the AP and transverse dimensions respectively. Minimal peripheral plaque identified in the mid/distal abdominal aorta. Right and left common iliac arteries measure 1.1 x 1.3 cm and 1.0 x 1.4 cm in AP and transverse dimensions respectively. There is no demonstrated aneurysm.. US/Aorta IMPRESSION: No abdominal aortic aneurysm. Minimal dilatation of the common iliac arteries slightly increased since the prior study. Electronically Signed: Eren Vaca MD at 4:44 EDT , Service support , CC: Nehal Vu MD Nitrocellulose Maker: Signed Nehal Vu Work Phone: Start: 07-13-2018 End: 07-13-2018 SCREENING MAMM (CAD), BILAT Comments: See Note; NOTES: [facility] Imaging Services [address] [place] [address] SCREENING MAMM (CAD), BILAT MR#: [id number] Acct: [id number] Name: BASILIA CAMPUZANO Rep #: [id number] : 1955 F 63 From: Ash Dennis MD PCP: Nehal Vu MD Status: REG CLI Study: SCREENING MAMM (CAD), BILAT Date of Exam: 07/13/18 Exam# [id number] Ordering Dr: Nehal Vu MD MAMMOGRAPHY - BILATERAL SCREENING REASON FOR EXAM: Female, 63 years old. Routine annual screening examination. PERTINENT HISTORY: Aunt with breast cancer. TECHNIQUE: Digital bilateral breast adi (3D mammographic acquisition) in the CC and MLO projections. 2-D mediolateral oblique (MLO) and craniocaudad (CC) views of both breasts were obtained. CAD: Full Field Digital Mammography with Computer Added Detection was performed. COMPARISON: Comparison is made with prior study dated June 22, 2017 and May 23, 2016. FINDINGS: Breast Composition: The breasts are extremely dense, which lowers the sensitivity of mammography. There are no dominant masses or suspicious calcifications. No other significant abnormalities are identified. There has been no significant change since the prior study. BI/SCREENING MAMM (CAD), BILAT IMPRESSION: Stable bilateral screening mammogram. Yearly follow-up mammogram recommended. (A) ASSESSMENT CATEGORY: BIRADS Category 1: Negative. A letter regarding these results will be sent to the patient by the facility within 30 days. Approximately 10% of breast cancers are not detected by mammography. A normal mammogram should not delay biopsy of a clinically suspicious abnormality. [id number] Electronically Signed: Ash Dennis, at 9:12 EDT , Service support , CC: Nehal Vu MD Nitrocellulose Maker: Signed Nehal Vu Work Phone: Start: 05-11-2018 End: 05-11-2018 Cardiology Visit Report Comments: See Note; NOTES: [facility] [address] [place] [address] OFFICE VISIT Date of Service: 05/11/18 MR#: [id number] Acct: [id number] Name: SAMI CAMPUZANO Rep #: [id number] : 1955 Provider: Emerson Thrasher MD Age/Sex: 62/F Location: [facility] [place] Status: Signed HPI HPI Details: SAMI CAMPUZANO, is a 62 F who presents to the office today for Outpatient cardiovascular followup. Overall from a cardiac standpoint she appears be doing well. She denies any ongoing issues of classic angina pectoris and she has had no/issues of CHF or pulmonary edema. There has been no near syncope or syncope. She states on her very low-dose beta kenrick her palpitations have been less noticeable. She appears to have done well with them. She remains active. She has had no other new acute symptoms or concerns. Intake Vital Signs05/11/18 Body Mass Index (BMI) 22.8 05/11/18 Height 5 ft 4 in 05/11/18 Weight: 139 lb 05/11/18 Body Mass Index (BMI) 23.8 05/11/18 Blood Pressure 108/60 Intake Visit Reasons: 6 w fu Allergies No Known Allergies Allergy (Verified 05/11/18 14:04) Medications Multivitamin [Daily Multiple Vitamin] 1 ea PO DAILY 03/08/18 [History Confirmed 05/11/18] metoprolol tartrate 25 mg tablet 12.5 mg PO DAILY #45 tab 04/18/18 [Rx Confirmed 05/11/18] PFSH Medical History Syncope (Acute) Epigastric pain (Acute) [...] ROS Const Const: Negative for fatigue, weakness, frequent falls, excessive sweating, weight gain or weight loss Eyes Eyes: Negative for transient loss of vision, blurry vision or change in vision ENT ENT: Negative for dizziness or balance problems Cardio Chest Pain: No Palpitations: Yes (x1 episode Wednesday for 2 hours, hadnt taken medication) feels like its: fast, pounding Edema: None Muscle aches with walking: None Resp Respiratory: Negative for SOB with activity or SOB at rest GI GI: Negative vomiting or vomiting blood/hematemesis : Negative for hematuria Musc Musc: Negative for muscle aches/ myalgia, muscle weakness, joint pain or balance problems Skin Skin: Negative non-healing lesions or rash Neuro Neuro: Negative for dizziness, lightheadedness, orthostatic symptoms, frequent falls, weakness or blurry vision Anastacio Hematologic/Lymphatic: Negative for easy bleeding Endo [...] S2 normal GI GI: normal to inspection, soft and bowel sounds present Neuro General: alert, awake, oriented x3, moves all extremities, no focal sensory deficit and no focal motor deficits Skin Skin: no rashes or lesions noted Extremities Pulses: Normal: Right Radial Pulse, Left Radial Pulse Lower Extremity Edema: None: Bilateral Psych Psychological: normal affect Assessment AND Plan 1. Palpitations R00.2 Plan At the present time she appears to be doing well. She will continue her very low-dose beta kenrick. She will monitor for any concerns. 2. Syncope, unspecified syncope type R55 Plan She has had no recurrent near syncope or syncope. She will continue her current medical management and follow up. 3. Palpable abdominal aorta R09.89 Plan She underwent abdominal ultrasound. She did not appear to have any report of an abdominal aortic aneurysm. Plan Detail Additional Comments She will be scheduled for an outpatient followup in approximately 6 months unless needed sooner. Thank you for allowing me to participate in the care of your patient. Please don't hesitate to call if any issues arise. This note was generated using a voice recognition system and there may be incorrect words, spelling or punctuation that were not noted when reviewing the office note prior to saving. Follow Up 6 Months (PFM) Coding Level of Care Code Off vis,est,level 3 Diagnoses Palpitations R00.2 Syncope, unspecified syncope type R55 Syncope type: unspecified Palpable abdominal aorta R09.89 Coding Level of Care Code Off vis,est,level 3 Diagnoses Palpitations R00.2 Syncope, unspecified syncope type R55 Syncope type: unspecified Palpable abdominal aorta R09.89 Supplemental Info Supplemental Information Transthoracic echocardiogram: 03/09/2018 Interpretation Summary Left ventricular systolic function is normal. The estimated ejection fraction is 65 %. Apical false tendon noted. Mild (1+) eccentric mitral valve insufficiency. Trivial tricuspid valve insufficiency. Trivial pericardial effusion. There are no echocardiographic indications of cardiac tamponade. Right ventricular systolic pressure estimated to be 23 mmHg. No evidence for diastolic dysfunction. Cardiac catheterization on 03/09/2018 CORONARY ANGIOGRAPHY DOMINANCE: Right Dominant LEFT HEART ASSESSMENT Left Ventricular Ejection Fraction: by LV Gram 65 % Normal LV wall motion Elevated Left Ventricular End Diastolic Pressure LVEDP: 20 mmHg LEFT MAIN: Angiographically normal LEFT ANTERIOR DECENDING ARTERY: Angiographically normal CIRCUMFLEX ARTERY: Angiographically normal RIGHT CORONARY ARTERY: Angiographically normal VALVE FINDINGS: Normal Aortic Valve function Normal Mitral Valve function AORTIC ROOT: Angiographically normal PERIPHERAL FINDINGS: Abdominal Aorta: Angiographically Normal Right Renal Artery Angiographically normal Left Renal Artery Angiographically non-obstructive Labs LDL Cholesterol 110 mg/dL (0-130) 03/09/18 HDL Cholesterol 62 mg/dL (40-) 03/09/18 Triglycerides 49 mg/dL (-199) 03/09/18 VLDL Cholesterol 10 mg/dL (5-40) 03/09/18 Diagnostics Electrocardiogram 03/25/18 Echocardiogram 03/09/18 Cardiac Catheterization 03/09/18 Chest X-Ray 03/08/18 05/11/18 1444 <Electronically signed by Emerson Thrasher MD> Date Emerson Thrasher MD Cosigner Signature: Date (if applicable) CC: Nehal Vu Start: 03-08-2018 End: 03-08-2018 Chest 1 View (Portable) Comments: See Note; NOTES: [facility] Imaging Services [address] [place] [address] Chest 1 View (Portable) MR#: [id number] Acct: [id number] Name: SAMI CAMPUZANO Priscila Rep #: [id number] : 1955 F 62 From: Orlin Trejo DO PCP: Nehal Vu MD Status: [facility] ER Study: Chest 1 View (Portable) Date of Exam: 03/08/18 Exam# [id number] Ordering Dr: Reggie Clark MD STUDY: X-RAY [...] Orlin Trejo DO at 19:09 EST Tel [phone], Service support , CC: Nehal Vu MD; Reggie Clark MD Nitrocellulose Maker: Signed Nehal Vu Start: 06-22-2017 End: 06-22-2017 Dexa Bone Density Study (HP) Comments: See Note; NOTES: [facility] Imaging Services [address] [place] [address] Dexa Bone Density Study () MR#: [id number] Acct: [id number] Name: SAMI CAMPUZANO Rep #: [id number] : 1955 F 61 From: Ash Dennis MD PCP: Nehal Vu MD Status: [facility] Study: Dexa Bone Density Study (HP) Date of Exam: 06/22/17 Exam# [id number] Ordering Dr: Nehal Vu MD STUDY: DUAL [...] Neck: g/cm2 (1.056) / T-score (0.1) / Z-score (1.4) Right Femur Total: g/cm2 (0.991) / [...] Ash Dennis MD at 13:01 EDT Tel [phone], Service support , CC: Nehal Vu MD Nitrocellulose Maker: Signed Nehal Vu Work Phone: Start: 06-22-2017 End: 06-22-2017 SCREENING MAMM (CAD), BILAT Comments: See Note; NOTES: [facility] Imaging Services [address] [place] [address] SCREENING MAMM (CAD), BILAT MR#: [id number] Acct: [id number] Name: SAMI CAMPUZANO Rep #: [id number] : 1955 F 61 From: Ash Dennis MD PCP: Nehal Vu MD Status: REG CLI Study: SCREENING MAMM (CAD), BILAT Date of Exam: 06/22/17 Exam# [id number] Ordering Dr: Nehal Vu MD MAMMOGRAPHY - BILATERAL SCREENING REASON FOR EXAM: Female, 61 years old. Routine annual screening examination. PERTINENT HISTORY: Aunt with breast cancer. TECHNIQUE: Digital bilateral breast adi (3D mammographic acquisition) in the CC and [...] delay biopsy of a clinically suspicious abnormality. [id number] Electronically Signed: Ash Dennis MD at 10:59 EDT Tel [phone], Service support , CC: Nehal Vu MD Nitrocellulose Maker: Signed Nehal Vu Work Phone: Start: 05-26-2016 End: 05-26-2016 Thyroid Comments: See Note; NOTES: [facility] Imaging Services [address] [place] [address] Verdana 4d Thyroid MR#: [id number] Acct: [id number] Name: SAMI CAMPUZANO Rep #: [id number] : 1955 F 60 From: Reece Hadley DO PCP: Nehal Vu MD Status: REG CLI Study: Thyroid Date of Exam: 05/26/16 Exam# [id number] Ordering Dr: Nehal Vu MD STUDY: THYROID ULTRASOUND REASON FOR EXAM: Female, 60 years old. Thyroid nodules TECHNIQUE: Ultrasound evaluation of the thyroid was performed with real-time and static mills-scale imaging. COMPARISON: 06/11/2015 FINDINGS: RIGHT LOBE: The right lobe of the thyroid gland measures 8 x 2.6 x 2.9 cm. There is a heterogeneous echotexture. Stable lower pole solid nodule measuring 1.8 x 1.8 x 2.4 cm. LEFT LOBE: The left lobe of the [...] at 21:36 EST Tel , Service support [phone], CC: Nehal Vu MD Nitrocellulose Maker: Signed Nehal Vu Work Phone: Start: 05-23-2016 End: 05-25-2016 SCREENING MAMM (CAD), BILAT Comments: See Note; NOTES: [facility] Imaging Services [address] [place] [address] Verdana 4d SCREENING MAMM (CAD), BILAT MR#: [id number] Acct: [id number] Name: SAMI CAMPUZANO Rep #: [id number] : 1955 F 60 From: Ash Dennis MD PCP: Nehal Vu MD Status: REG CLI Study: SCREENING MAMM (CAD), BILAT Date of Exam: 05/23/16 Exam# [id number] Ordering Dr: Nehal Vu MD MAMMOGRAPHY - BILATERAL SCREENING REASON FOR EXAM: Female, 60 years old. Routine annual screening examination. PERTINENT HISTORY: Aunt with breast cancer. TECHNIQUE: Digital bilateral breast adi (3D mammographic acquisition) in the CC and MLO projections. 2-D mediolateral oblique (MLO) and craniocaudad (CC) views of both breasts were obtained. CAD: Full Field Digital Mammography with Computer Added Detection was performed. COMPARISON: Comparison is made with prior examination dated July 21, 2007. FINDINGS: Breast Composition: The breasts are heterogeneously dense, which may obscure small masses. There [...] delay biopsy of a clinically suspicious abnormality. [id number] Electronically Signed: Ash Dennis MD at 8:08 EST Tel [phone], Service support [phone], CC: Nehal Vu MD Nitrocellulose Maker: Signed Nehal Vu Work Phone: Start: 06-11-2015 End: 06-11-2015 Thyroid Comments: See Note; NOTES: [facility] Imaging Services [address] [place] [address] Verdana 4d Thyroid MR#: [id number] Acct: [id number] Name: SAMI CAMPUZANO Rep #: [id number] : 1955 F 59 From: Ash Dennis MD PCP: Nehal Vu MD Status: REG CLI Study: Thyroid Date of Exam: 06/11/15 Exam# [id number] Ordering Dr: Nehal Vu MD STUDY: THYROID ULTRASOUND REASON FOR EXAM: Female, 59 years old. Thyroid nodules. TECHNIQUE: Ultrasound evaluation of the thyroid was performed with real-time and static mills-scale imaging. COMPARISON: Comparison is made with prior study dated October 23, 2014. FINDINGS: RIGHT LOBE: The right lobe of the thyroid gland is enlarged and measures 6.7 cm x 2.8 cm x 2.6 cm. There is a heterogeneous echotexture. Which again, there are 2 hypoechoic solid nodules in the lower lobe. The larger measures 2.1 cm x 1.8 cm x 1.6 cm. Adjacent to this, there is a stable 1.6 cm x 1.7 cm x 1.5 cm solid nodule. Increased [...] 7.0 mm. The regional lymph nodes are normal. IMPRESSION: Stable examination demonstrating stable bilateral thyroid nodules and thyroid enlargement Electronically Signed: Ash Dennis MD at 15:52 EST Tel [phone], Service support [phone], CC: Nehal Vu MD Nitrocellulose Maker: Signed Nehal Vu Work Phone: Start: 01-11-2015 End: 01-11-2015 Operative Report Comments: See Note; NOTES: [facility] Medical Records Department [address] [place] [address] Operative Report MR#: [id number] Acct: [id number] Name: SAMI CAMPUZANO Rep #: [id number] : 1955 59 From: Nayeli Summers MD PCP: Nehal Vu MD Status: [facility] DATE OF SERVICE: 01/08/2015 DATE OF SERVICE: January 08, 2015 PREOPERATIVE DIAGNOSES: Uterine leiomyoma and postmenopausal bleeding. POSTOPERATIVE DIAGNOSES: Uterine leiomyoma and postmenopausal bleeding plus thickened endometrium. PROCEDURES: Dilatation and curettage, hysteroscopy. SURGEON: Nayeli Summers M.D. ESTIMATED BLOOD LOSS: Minimal. FLUIDS: Lactated Ringer's. MEDICATIONS: Include 1% local to the cervix. ANESTHESIA: MAC anesthetic and urine is 50 mL of clear urine. INDICATION: The patient is a 59-year-old white female, who has a known history of multiple uterine leiomyoma as an etiology to enlarged uterus, but having postmenopausal bleeding, initially presented thinking she was having irregular menstrual cycles, but serum hormonal testing revealed that she is actually postmenopausal. A post-bleed ultrasound revealed that she had thickened endometrium and she was consented for and accepted the risks of procedure of D and C, hysteroscopy. DESCRIPTION OF PROCEDURE: On the day surgery, the patient was taken to the operating room where she received a MAC anesthetic. Once found to be adequate, she was placed in dorsal lithotomy position via the Mathew stirrups, prepped, draped in normal sterile fashion. Bladder had been emptied of remaining urine with a straight rubber catheter. Anterior lip of the cervix [...] tissue. This was sent away for pathological evaluation. Replacement of the hysteroscope into the endometrium revealed removal of all tissue. Hysteroscope was removed. Sponge, instrument, needle counts correct x2. The patient was awakened in stable condition and taken to recovery room to be discharged home. I will follow up in the office in 1-2 weeks' time. Nayeli Summers MD T: NTS JOB: [id number] 01/11/15 0949 <Electronically signed by Nayeli Summers MD> Date Nayeli Summers MD Cosigner Signature (If Indicated): Date CC: Nayeli Summers MD; Nehal Vu MD Date Dictated: 01/08/15 1541 Date Transcribed: 01/08/151540 Nitrocellulose Maker: Signed Nehal Vu Start: 01-08-2015 End: 01-08-2015 Discharge Instruction Comments: See Note; NOTES: [facility] Medical Records Department [address] [facility] [place] [place] [address] Instructions for Home/Discharge Instructions 01/08/15 1516 MR#: [id number] Acct: [id number] Name: SAMI CAMPUZANO Rep #: [id number] : 1955 59 From: Nayeli Summers MD PCP: Nehal Vu MD Status: REG [facility] Discharge Diet: No Restrictions Discharge Activity: Return to Normal Activity, May Shower, May Take a Tub Bath - in 2 weeks. May shower in (days): 0 - now May resume sexual activity in: 10-14 days Weight Bearing Status: Full weight bearing Lifting Restrictions: none Cleanse incision/area with: Soap AND Water Allergies/Adverse Reactions: Allergies No Known Allergies Allergy (Verified 01/08/15 13:52) Medications to take at Discharge Multivitamins,Therapeutic [Multivitamin] 1 tablet PO DAILY 01/02/15 Please Follow Up With: Nayeli Summers When: 1-2 weeks in office 01/08/15 1517 <Electronically signed by Nayeli Summers MD> Date Nayeli Summers MD CC: Nehal Vu Start: 01-08-2015 End: 01-08-2015 Operative Report Comments: See Note; NOTES: [facility] Medical Records Department [address] [place] [address] Operative Report 01/08/15 1514 MR#: [id number] Acct: [id number] Name: SAMI CAMPUZANO Rep #: [id number] : 1955 59 From: Nayeli Summers MD PCP: Nehal Vu MD Status: REG [facility] Y Location: [place] [address] Operative Report (Blank) Date of Procedure: 01/08/15 Preop: Uterine leiomyoma and postmenopausal bleeding Postop: Same + thickened endometrium Procedure: D and C, hysteroscopy Surgeon: Kristopher EBL: minimal Fluids: Lactated ringers Meds: 1% Lidocaine local to the cervix Anesthesia: MAC Urine: 50cc 01/08/15 1516 <Electronically signed by Nayeli Summers MD> Date Nayeli Summers MD CC: Nayeli Summers MD; Nehal Vu MD Signed Nehal Vu Start: 10-23-2014 End: 10-25-2014 Pelvic (Non ) Comments: See Note; NOTES: [facility] Imaging Services [address] [place] [address] Ultrasound Report MR#: [id number] Acct: [id number] Name: SAMI CAMPUZANO Rep #: [id number] : 1955 F 59 From: Ash Dennis MD PCP: Nehal Vu MD Status: REG CLI Study: Pelvic (Non ) Date of Exam: 10/23/14 Exam# [id number] Ordering Dr: Nehal Vu MD ADDENDUM by Ash Dennis MD on 10/25/14 at 1556 ADDENDUM This is an addendum report. Prior examination of the pelvis was made available for comparison. Since prior study, the uterus has increased in size there are the previously seen fibroids have increased in size as well . Electronically Signed: Ash Dennis MD at 15:56 EDT Tel [phone], Service support [phone], 10/25/14 1551 Date cc: Nehal Vu MD * Signed STUDY: ULTRASOUND OF THE FEMALE PELVIS - COMPLETE REASON FOR EXAM: Female, 59 years old. LMP: March 2014. Fibroid uterus. TECHNIQUE: Transabdominal TECHNICAL QUALITY: Adequate. COMPARISON: None. FINDINGS: The uterus is anteverted and is in a midline position. The uterus is enlarged and measures 20.7 cm x 11.5 cm x 7.9 cm. Normal uterine cervix. The endometrium measures 8.2 mm in thickness, and is [...] cm x 2.7 cm. There is no visualized right adnexal mass or complex lesion. There [...] Ash Dennis MD at 13:27 EDT Tel [phone], Service support [phone], CC: Nehal Vu MD Nitrocellulose Maker: Signed Nehal Vu Work Phone: Start: 10-23-2014 End: 10-24-2014 Thyroid Comments: See Note; NOTES: [facility] Imaging Services [address] [place] [id number] Ultrasound Report MR#: [id number] Acct: [id number] Name: SAMI CAMPUZANO Rep #: [id number] : 1955 F 59 From: Ash Dennis MD PCP: Nehal Vu MD Status: REG CLI Study: Thyroid Date of Exam: 10/23/14 Exam# [id number] Ordering Dr: Nehal Vu MD STUDY: THYROID ULTRASOUND REASON FOR EXAM: Female, 59 years old. Thyroid enlargement. TECHNIQUE: Ultrasound evaluation of the thyroid was performed with real-time and static mills-scale imaging. COMPARISON: None. FINDINGS: RIGHT LOBE: The right lobe of the thyroid gland is enlarged and measures 7.8 cm x 2.9 cm x 2.8 cm. There is a heterogeneous echotexture. There are 2 hypoechoic solid nodules within the right lobe. The [...] mm. The regional lymph nodes are normal. IMPRESSION: The thyroid is enlarged with bilateral hypoechoic solid nodules more prominent in the right lobe. Electronically Signed: Ash Dennis MD at 14:04 EDT Tel [phone], Service support [phone], CC: Nehal Vu MD Nitrocellulose Maker: Signed Nehal Vu Work Phone: Cholecystectomy TIMMY youngblood Comment on above: Cholecystectomy Nehal ann Work Phone: Comment on above: Cholecystectomy TIMMY youngblood Comment on above: Cholecystectomy Nina Manc hak Comment on above: Cholecystectomy Nehal Castellanos Mike ann Work Phone: Comment on above: Cholecystectomy Nina Manjesica harocio Comment on above: Cholecystectomy Shannon Zia madrigal Comment on above: Cholecystectomy Nina Manjesica harocio Comment on above: Cholecystectomy TIMMY Rogeliojosué ll Comment on above: Cholecystectomy Nina Anant harocio Comment on above: Cholecystectomy Nehal M Mike ann MD Work Phone: Comment on above: Cholecystectomy Nehal M Mike ann MD Work Phone: Comment on above: Cholecystectomy Nina Anant harocio SUPERVISORY CIVIL ENGINEER Comment on above: Cholecystectomy Nina Anant harocio SUPERVISORY CIVIL ENGINEER Comment on above: Cholecystectomy Lee Sutton MACHINE PACKAGING TECHNICIAN Comment on above: Cholecystectomy Nina Anant harocio SUPERVISORY CIVIL ENGINEER Comment on above: Cholecystectomy Teresa Coffma n MACHINE PACKAGING TECHNICIAN Cholecystectomy Nina Anant burton SUPERVISORY CIVIL ENGINEER Hysteroscopy bx endometrium&/polypc w/wo d&c TIMMY Briceño Comment on above: Dr. Summers Hysteroscopy bx endometrium&/polypc w/wo d&c Nehal Jasmin Horace Work Phone: Comment on above: Dr. Summers Hysteroscopy bx endometrium&/polypc w/wo d&c TIMMY Briceño Comment on above: Dr. Summers Hysteroscopy bx endometrium&/polypc w/wo d&c Nina Estrada Comment on above: Dr. Summers Hysteroscopy bx endometrium&/polypc w/wo d&c Nehal Jasmin Dakotadesiraemelissa Work Phone: Comment on above: Dr. Summers Hysteroscopy bx endometrium&/polypc w/wo d&c Nina Estrada Comment on above: Dr. Summers Hysteroscopy bx endometrium&/polypc w/wo d&c Shannon Elkins Comment on above: Dr. Summers Hysteroscopy bx endometrium&/polypc w/wo d&c Nina Estrada Comment on above: Dr. Summers Hysteroscopy bx endometrium&/polypc w/wo d&c TIMMY Briceño Comment on above: Dr. Summers Hysteroscopy bx endometrium&/polypc w/wo d&c Nina Manesau Comment on above: Dr. Summers Hysteroscopy bx endometrium&/polypc w/wo d&c Nehal Vu MD Work Phone: Comment on above: Dr. Summers Hysteroscopy bx endometrium&/polypc w/wo d&c Nehal Vu MD Work Phone: Comment on above: Dr. Summers Hysteroscopy bx endometrium&/polypc w/wo d&c Nina Manchak [facility] Comment on above: Dr. Summers Hysteroscopy bx endometrium&/polypc w/wo d&c Nina Mancharocio [facility] Comment on above: Dr. Summers Hysteroscopy bx endometrium&/polypc w/wo d&c Lee Sutton LPN Comment on above: Dr. Summers Hysteroscopy bx endometrium&/polypc w/wo d&c Nina Manchak [facility] Comment on above: Dr. Summers Hysteroscopy bx endometrium&/polypc w/wo d&c Teresa Lovett LPN Hysteroscopy bx endometrium&/polypc w/wo d&c Nina Manchak [facility] End: 06-08-2018 Laboratory test result abnormal Abnormal laboratory test Nehal Vu MD Work Phone: Comment on above: elevated TMAO. eating alot red meat now. now with improvement in diet low Laboratory test resu lt abnormal Abnormal laboratory test Nehal Vu MD Work Phone: Laboratory test resu lt abnormal Abnormal laboratory test Nehal Vu MD Work Phone: Left knee TIMMY Briceño Comment on above: repair when 18 years old football knee Prtl thyroid lobec u ni w/contratlat stot lobec TIMMY Briceño LPN Comment on above: Dr. Franco nodules were consist ent with multinodular hyperplasia and chronic lymphocytic thyroiditis Prtl thyroid lobec u ni w/contratlat stot lobec Nehal Vu MD Work Phone: Comment on above: Dr. Franco nodules were consist ent with multinodular hyperplasia and chronic lymphocytic thyroiditis Prtl thyroid lobec u ni w/contratlat stot lobec Nina Manchak SUPERVISORY CIVIL ENGINEER Comment on above: Dr. Franco nodules were consist ent with multinodular hyperplasia and chronic lymphocytic thyroiditis Prtl thyroid lobec u ni w/contratlat stot lobec Nina Manchak SUPERVISORY CIVIL ENGINEER Comment on above: Dr. Franco nodules were consist ent with multinodular hyperplasia and chronic lymphocytic thyroiditis Prtl thyroid lobec u ni w/contratlat stot lobec Lee Sutton LPN Comment on above: Dr. Franco nodules were consist ent with multinodular hyperplasia and chronic lymphocytic thyroiditis Prtl thyroid lobec u ni w/contratlat stot lobec Nina Manchak SUPERVISORY CIVIL ENGINEER Comment on above: Dr. Franco nodules were consist ent with multinodular hyperplasia and chronic lymphocytic thyroiditis Prtl thyroid lobec u ni w/contratlat stot lobec Teresa Lovett LPN Prtl thyroid lobec u ni w/contratlat stot lobec Nina Manchak DOMENICO Briceño LPN Plan of Treatment Date Care Activity Detail Author Start: 12-21-2024 [facility] Start: 12-21-2024 Clsd tx shoulder dislc w/manipulation w/o anes CLTX LICO DSLC W/MNPJ [facility] Start: 12-07-2022 Procedure Education [facility]; [facility] Work Phone: Start: 09-15-2022 Procedure Education [facility]; [facility] Work Phone: Start: 09-15-2022 Provider Instructions for Treatment [facility]; [facility] Work Phone: Start: 09-15-2022 Lipid panel [facility]; [facility] Work Phone: Start: 09-15-2022 Hepatic function panel [facility] Work Phone: Start: 03-13-2022 Procedure Education [facility]; [facility] Work Phone: Start: 03-13-2022 Lipid panel LIPID PANEL (20781) [facility]; [facility] Work Phone: Start: 03-13-2022 Comprehensive metabolic panel METABOLIC PANEL, COMPREHENSIVE (52172) [facility]; [facility] Work Phone: Start: 03-13-2022 Blood count manual cell count each CBC with auto diff (65644) [facility]; [facility] Work Phone: Start: 03-13-2022 Assay of thyroid stimulating hormone tsh TSH (33426) [facility]; [facility] Work Phone: Start: 03-13-2022 25 hydroxy includes fractions if performed CALCIFIDIOL (92800) VIT D 25 [facility]; [facility] Work Phone: Start: 02-26-2022 Blood count complete auto&auto difrntl wbc CBC, PLATELETS & AUT DIFF (46416) [facility]; [facility] Work Phone: Start: 02-26-2022 Assay of thyroid stimulating hormone tsh TSH (THYROID STIMULATING HORMONE) (40020) [facility]; [facility] Work Phone: Start: 02-26-2022 Assay of magnesium MAGNESIUM (53797) [facility]; [facility] Work Phone: Start: 02-26-2022 Comprehensive metabolic panel METABOLIC PANEL, COMPREHENSIVE (27253) [facility]; [facility] Work Phone: Start: 12-12-2021 Procedure Education [facility]; [facility] Work Phone: Start: 10-10-2021 Procedure Education [facility]; [facility] Work Phone: Start: 09-05-2021 Hemoglobin glycosylated a1c HGB A1C (61968) [facility]; [facility] Work Phone: Start: 09-05-2021 Assay of thyroid stimulating hormone tsh TSH (68483) [facility]; [facility] Work Phone: Start: 09-05-2021 Assay of free thyroxine T4, FREE (THYROXINE) (66915) [facility]; [facility] Work Phone: Start: 09-05-2021 Assay of triiodothyronine t3 free T3, FREE (TRIDOTHYRONINE) (61900) [facility]; [facility] Work Phone: Start: 04-15-2021 Iaadiadoo influenza 2019 Novel Coronavirus (COVID-19), MERCEDES (75104) [facility]; [facility] Work Phone: Start: 02-14-2021 Hepatic function panel HEPATIC FUNCTION PANEL (35038) [facility]; [facility] Work Phone: Start: 02-14-2021 Lipid panel LIPID PANEL (58896) [facility]; [facility] Work Phone: Start: 02-14-2021 25 hydroxy includes fractions if performed CALCIFIDIOL (66243) VIT D 25 [facility]; [facility] Work Phone: Start: 12-27-2020 Comprehensive metabolic panel [facility]; [facility] Work Phone: Comment on above: copy of all labs to Dr Brannon Start: 12-27-2020 25 hydroxy includes fractions if performed [facility]; [facility] Work Phone: Start: 12-27-2020 Assay of thyroid stimulating hormone tsh [facility]; [facility] Work Phone: Start: 12-27-2020 Urnls dip stick/tablet reagent auto microscopy [facility]; [facility] Work Phone: Start: 12-27-2020 Lipid panel [facility]; [facility] Work Phone: Start: 12-27-2020 Blood count manual cell count each [facility]; [facility] Work Phone: Start: 12-27-2020 Hemoglobin glycosylated a1c [facility]; [facility] Work Phone: Start: 12-11-2020 Influenza vaccination INFLUENZA (Season Ended) [facility] Start: 10-25-2020 Procedure Education [facility]; [facility] Work Phone: Start: 10-25-2020 25 hydroxy includes fractions if performed [facility]; [facility] Work Phone: Start: 10-25-2020 Assay of thyroid stimulating hormone tsh [facility]; [facility] Work Phone: Start: 10-11-2020 Blood count complete auto&auto difrntl wbc BLD CNT, COMPL CBC W/AUTO DIFF WBC (28987) [facility]; [facility] Work Phone: Start: 10-11-2020 1 25 dihydroxy includes fractions if performed [facility]; [facility] Work Phone: Start: 10-11-2020 Urinalysis qual/semiquant except immunoassays [facility]; [facility] Work Phone: Start: 10-11-2020 Blood count manual cell count each [facility]; [facility] Work Phone: Start: 10-11-2020 Assay of triiodothyronine t3 free [facility]; [facility] Work Phone: Start: 10-11-2020 Assay of free thyroxine [facility]; [facility] Work Phone: Start: 10-11-2020 Assay of thyroid stimulating hormone tsh [facility]; [facility] Work Phone: Start: 10-11-2020 25 hydroxy includes fractions if performed [facility]; [facility] Work Phone: Start: 10-11-2020 Comprehensive metabolic panel [facility]; [facility] Work Phone: Start: 10-11-2020 Lipid panel [facility]; [facility] Work Phone: Start: 07-24-2020 End: 07-24-2021 PRE-PROCEDURE & PRE-OPERATIVE COVID PRE-PROCEDURE & PRE-OPERATIVE COVID Microbiology Routine Thyroid mass Expected: 07/24/2020, Expires: 07/24/2021 [facility] Comment on above: Expected: 07/24/2020, Expires: 2 Start: 04-19-2020 Procedure Education [facility]; [facility] Work Phone: Start: 12-15-2019 Blood count manual cell count each CBC with auto diff (64990) [facility] Work Phone: Start: 12-15-2019 25 hydroxy includes fractions if performed CALCIFIDIOL (32065) VIT D 25 [facility] Work Phone: Start: 12-15-2019 Lipid panel Lipid Panel (59946) [facility] Work Phone: Start: 12-15-2019 Microsomal antibodies each Anti TPO Antibody (57175) [facility] Work Phone: Start: 12-15-2019 Free T4 [Mass/Vol] T4, FREE (THYROXINE) (30530) [facility] Work Phone: Start: 12-15-2019 Free T3 [Mass/Vol] T3, FREE (TRIDOTHYRONINE) (25541) [facility] Work Phone: Start: 12-15-2019 TSH Qn TSH (38941) [facility] Work Phone: Start: 12-15-2019 Cytp c/v auto thin lyr prepj scr mnl rescr phys Thin Prep Pap (10675) [facility] Work Phone: Start: 12-15-2019 Hpv, dna, amp probe HPV automatic (57582) [facility] Work Phone: Start: 12-12-2019 Influenza vaccination INFLUENZA (#1) [facility] Start: 11-17-2019 SARS-CoV-2 Antibody, IgG SARS-CoV-2 Antibody, IgG [facility] Work Phone: Start: 03-28-2019 Procedure Education [facility] Work Phone: Start: 11-18-2018 Procedure Education [facility] Work Phone: Start: 11-18-2018 Provider Instructions for Treatment [facility] Work Phone: Start: 11-18-2018 Culture bct isol&prsmptv id isolate ea urine URINE CHARLY CULTURE-IDENTIFICATN (26959) [facility] Work Phone: Start: 09-20-2018 Procedure Education [facility] Work Phone: Start: 06-08-2018 Procedure Education [facility] Work Phone: Start: 06-08-2018 Lipid panel LIPID PANEL (42537) [facility] Work Phone: Start: 06-08-2018 Hepatic function panel HEPATIC FUNCTION PANEL (63838) [facility] Work Phone: Start: 05-24-2018 Urinalysis qual/semiquant except immunoassays URINALYSIS (49758) [facility] Work Phone: Start: 05-24-2018 Blood count manual cell count each CBC WITH MANUAL DIFF (51354) [facility] Work Phone: Start: 05-24-2018 Comprehensive metabolic panel Metabolic Panel, Comprehensive (25855) [facility] Work Phone: Start: 02-08-2018 Procedure Education [facility] Work Phone: Start: 02-03-2018 Blood count complete auto&auto difrntl wbc [facility] Work Phone: Start: 02-03-2018 Assay of lipase Lipase (64018) [facility] Work Phone: Start: 02-03-2018 Assay of amylase Amylase (30815) [facility] Work Phone: Start: 02-02-2018 Comprehensive metabolic panel METABOLIC PANEL, COMPREHENSIVE (39043) [facility] Work Phone: Start: 05-25-2017 Protein mass conc LIPOPROTEIN, BLD, BY NMR (42015) [facility] Work Phone: Start: 09-08-2016 Hemoglobin A1c/Hemoglobin.total mass fraction (Bld) HGB A1C (97887) [facility] Work Phone: Start: 09-08-2016 Hemoglobin glycosylated a1c [facility]; [facility] Work Phone: Start: 05-05-2016 Patient Education [facility] Work Phone: Start: 07-23-2015 Procedure Education [facility] Work Phone: Start: 06-18-2015 Assay of triiodothyronine t3 free [facility]; [facility] Work Phone: Start: 06-18-2015 T3 free mass conc T3, FREE (TRIDOTHYRONINE) (96416) [facility] Work Phone: Start: 06-18-2015 Assay of free thyroxine [facility] Work Phone: Start: 06-18-2015 T4 free mass conc T4, FREE (THYROXINE) (23981) [facility] Work Phone: Start: 06-18-2015 Assay of thyroid stimulating hormone tsh [facility]; [facility] Work Phone: Start: 06-18-2015 Thyrotropin Qn TSH (22011) [facility] Work Phone: Start: 10-16-2014 Procedure Education [facility] Work Phone: Start: 10-16-2014 Provider Instructions for Treatment [facility] Work Phone: Start: 10-16-2014 Gonadotropin follicle stimulating hormone [facility] Work Phone: Start: 10-16-2014 Assay of estradiol [facility] Work Phone: Start: 10-16-2014 Assay of prolactin [facility] Work Phone: Start: 10-16-2014 Protein mass conc PROLACTIN (25152) [facility] Work Phone: Start: 10-16-2014 Assay of triiodothyronine t3 free [facility]; [facility] Work Phone: Start: 10-16-2014 T3 free mass conc T3, FREE (TRIDOTHYRONINE) (02818) [facility] Work Phone: Start: 10-16-2014 Assay of free thyroxine [facility] Work Phone: Start: 10-16-2014 T4 free mass conc T4, FREE (THYROXINE) (02475) [facility] Work Phone: Start: 10-16-2014 Assay of thyroid stimulating hormone tsh [facility]; [facility] Work Phone: Start: 10-16-2014 Thyrotropin Qn TSH (45155) [facility] Work Phone: Start: 10-16-2014 Cytp c/v auto thin lyr prepj scr mnl rescr phys [facility] Work Phone: Start: 10-16-2014 Urnls dip stick/tablet reagent auto microscopy [facility] Work Phone: Start: 10-16-2014 Comprehensive metabolic panel [facility] Work Phone: Start: 10-16-2014 Blood count manual cell count each [facility] Work Phone: Start: 10-16-2014 Lipid panel [facility] Work Phone: Start: 04-19-2012 Provider Instructions for Treatment [facility] Work Phone: Start: 12-19-2010 Culture bacterial quanttative colony count urine [facility] Work Phone: Start: 11-06-2010 Provider Instructions for Treatment [facility] Work Phone: Start: 10-24-2010 Nursing Care Education [facility] Work Phone: Start: 10-24-2010 Culture bacterial quanttative colony count urine [facility] Work Phone: Start: 07-22-2007 Provider Instructions for Treatment [facility] Work Phone: Start: 07-01-2007 Screening for malignant neoplasm of colon [facility] Start: 07-01-2007 SHINGRIX VACCINE (1 of 2) SHINGRIX VACCINE (1 of 2) [facility] Start: 04-26-2007 Glucose mass conc Glucose (66039) [facility] Work Phone: Start: 04-26-2007 Glucose quantitative blood xcpt reagent strip [facility]; [facility] Work Phone: Start: 04-26-2007 Lipid panel [facility] Work Phone: Start: 04-26-2007 Provider Instructions for Treatment [facility] Work Phone: Start: 2002 DIABETES SCREEN DIABETES SCREEN [facility] Start: 2002 LIPID SCREEN LIPID SCREEN [facility] Start: 1997 Mammography MAMMOGRAM [facility] Start: 07-01-1987 HPV TESTING HPV TESTING [facility] Start: 1978 PAP TESTING PAP TESTING [facility] Start: 1976 Urine microalbumin profile DTAP,TDAP,TD (1 - Tdap) [facility] Start: 07-01-1975 HEPATITIS C SCREENING HEPATITIS C SCREENING [facility] Start: 07-01-1975 HIV SCREENING HIV SCREENING [facility] Start: 1969 Adult depression screening assessment DEPRESSION SCREENING [facility] H&P for surgery H&P FOR SURGERY Procedures Routine Thyroid mass Ordered: 07/24/2020 [facility] Comment on above: Ordered: 07/24/2020 [facility] Work Phone: [facility] Work Phone: [facility] Work Phone: [facility] Work Phone: [facility] Work Phone: [facility] Work Phone: [facility] Work Phone: [facility] Work Phone: [facility] Work Phone: [facility] Work Phone: [facility] Work Phone: [facility] Work Phone: [facility] Work Phone[facility] Work Phone: [facility] Work Phone: [facility] Work Phone: [facility] Work Phone: Urinary retentio n : Catheter 8F-- straight cath preformed and 800 cc urine drained -- pt feels much better and more comfortable [facility] Work Phone: [facility] Work Phone: [facility] Work Phone: [facility] Work Phone: [facility] Work Phone: [facility] Work Phone: [facility] Work Phone: [facility] Work Phone: [facility]; [facility] Work Phone: [facility]; [facility] Work Phone: [facility]; [facility] Work Phone: [facility]; [facility] Work Phone[facility]; [facility] Work Phone: [facility]; [facility] Work Phone: Immunizations Immunization Date Immunization Notes Care Provider [facility] 01-23-2022 COVID-Pfizer (30 MCG/0.3 ML) Nehal Vu MD Work Phone: [facility]; [facility] Work Phone: 01-23-2022 influenza, seasonal, injectable Nehal Vu MD Work Phone: [facility]; [facility] Work Phone: 07-11-2020 Covid (Pfizer) Dr. Nehal marie Work Phone: [facility] 06-20-2020 Covid (Pfizer) Dr. Nehal marie Work Phone: [facility] 04-26-2007 tetanus and diphther ia toxoids, adsorbed, preservative free, for adult use (2 Lf of tetanus toxoid and 2 Lf of diphtheria toxoid) Nehal Vu [facility] Manager [facility] Work Phone: Comment on above: given in left deltoi d, lot#[id number], exp.09.22.07--WF Payers Date Payer Category Payer Medicare [id number] 2024 Self-pay [id number] 2024 Unknown [id number] 2020 Private Health Insurance SARAVANAN ZAMUDIO PPO [id number] 2020-Present PPO [id number] 2020 Private Health Insurance [id number] 2009 Unknown [id number] 2004 Unknown [id number] 1955 Unknown [id number] 1955 Unknown [id number] Private Health Insurance [id number] Unknown Unknown [id number] Unknown [employer] [id number] Unknown [id number] 62 Unknown [id number] 62 Unknown [id number] 62 Unknown [id number] 62 Unknown [id number] 62 Social History Date Type Detail Facility Caffeine Use Never smoker [facility] Work Phone: Comment on above: 1 cup green tea qd Full-time, 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 , Lives with spouse Tobacco use: Never smoker. [facility] Work Phone: Start: 1955 Sex Assigned At Not on file C [facility] Start: 07-23-2020 End: 12-21-2024 Tobacco smoking status NHIS Never smoker [facility] Start: 07-23-2020 Tobacco use and exposure Never used [facility] Start: 07-23-2020 Alcohol intake Lifetime non-d rachel (finding) [facility] Start: 07-23-2020 History SDOH Alcohol Frequency 1 [facility] Exposure to SARS-CoV-2 (event) Not sure [facility] Tobacco use: Tobacco use: [facility]; [facility] Work Phone: Start: 07-04-2021 End: 10-29-2022 Tobacco smoking status VAIS Unknown if ever smoked [facility] Start: 03-09-[address] [facility] Start: 03-09-2018 Spouse/ Signif icant Other [facility] Start: 03-09-[address] [facility] Start: 1955 Sex Assigned At Female [facility] Start: 07-17-2024 Sex Female (finding) [facility] Sex Female [facility] Functional Status Date Assessment Result Facility 03-15-2019 LP-IR Score <25 [facility] Work Phone: Comment on above: INSULIN RESISTANCE M GABRIELLE <--Insulin Sensitive Insulin Resistant--> Percentile in Reference PopulationInsulin Resistance ScoreLP-IR Score Low 25th 50th 75th High <27 27 45 63 >63LP-IR Score is inaccurate if patient is non-fasting. .The LP-IR score is a laboratory developed index that has beenassociated with insulin resistance and diabetes risk and should beused as one component of a physician's clinical assessment. Test(s) 268896-PEO-T ; 364380-RCE-V; 335979-ZGY-S; 732632-Xpdmwzflompta; 829466-Mbqebxnlczy, Total; 696178-SKP-P (Total);301742-Lddrv LDL-P; 980712-YAL Size; 937616-YT-CF Scorewas developed and its performance characteristics determinedby [employer]. It has not been cleared or approved by the Foodand Drug Administration.PATIENT WAS FASTINGPERFORMED BY: [employer]ston1447 [facility] [id number] BY: [employer] [id number] [facility] [id number] 02-02-2018 LP-IR Score <25 [facility] Work Phone: Comment on above: INSULIN RESISTANCE Jasmin ANTHONY <--Insulin Sensitive Insulin Resistant--> Percentile in Reference PopulationInsulin Resistance ScoreLP-IR Score Low 25th 50th 75th High <27 27 45 63 >63LP-IR Score is inaccurate if patient is non-fasting. .The LP-IR score is a laboratory developed index that has beenassociated with insulin resistance and diabetes risk and should beused as one component of a physician's clinical assessment. TheLP-IR score listed above has not been cleared by the [place] Food andDrug Administration. PATIENT WAS FASTINGP ERFORMED BY: [employer] Communicationston1447 [facility] [id number] Mental Status Date Assessment Result Facility 12-21-2024 Cognitive function Awake;Alert;A ppropriate;Fol lows Commands [facility] Work Phone: Clinical Notes 07-23-2020 to 01-04-2025 Note Date & Type Note Facility 01-04-2025 Progress note [facility] 12-21-2024 Discharge summary [facility] 12-21-2024 Radiology Diagnostic study note [facility] Imaging Services [address] [place] [id number] Shoulder min 2 Views MR#: [id number] Acct: [id number] Name: BASILIA CAMPUZANO Rep #: [id number] : 1955 F 69 From: Justino Salinas MD PCP: Dr. Nehal Vu MD Status: REG E R Study:Shoulder min 2 Views Date of Exam: 12/21/24 Exam# [id number] Ordering Dr: Daniel Elam DO PROCEDURE: RIGHT SHOULDER MIN 2 VIEWS 12/21/2024 REASON FOR EXAM: STATUS POST REDUCTION TECHNIQUE: Procedure Code: RADSH Modality: DX Procedure: SHOULDER MIN 2 VIEWS Laterality: Right COMPARISON: Earlier same day 12/21/2024. FINDINGS: Status post successful closed reduction of the previous anterior glenohumeral dislocation, with restored anatomic alignment. Right AC joint is intact. There may be a subtle Hill-Sachs fracture deformity at the superolateral aspect of the humeral head, otherwise no acute fracture is seen. RAD/Shoulder min 2 Views IMPRESSION: Successful closed reduction of the previous anterior shoulder dislocation. Probable subtle Hill-Sachs impaction fracture of the superolateral humeral head. Reading Location: [facility] CC: Dr. Daniel Arechiga DO; Dr. Nehal Vu MD ~ Nitrocellulose Maker: Signed [facility] 12-21-2024 Radiology Diagnostic study note [facility] Imaging Services [address] [facility] [place] [id number] Shoulder min 2 Views MR#: [id number] Acct: [id number] Name: BASILIA CAMPUZANO Rep #: [id number] : 1955 F 69 From: Justino Salinas MD PCP: Dr. Nehal Vu MD Status: REG E R Study:Shoulder min 2 Views Date of Exam: 12/21/24 Exam# [id number] Ordering Dr: Daniel Elam DO PROCEDURE: RIGHT SHOULDER MIN 2 VIEWS 12/21/2024 REASON FOR EXAM: PAIN, TRAUMA TECHNIQUE: Procedure Code: RADSH Modality: DX Procedure: SHOULDER MIN 2 VIEWS Laterality: Right COMPARISON: None. FINDINGS: Anterior inferior dislocation of the right glenohumeral joint. No acute fracture appreciated on these images. Right AC joint is intact. Normal bone mineralization. Grossly unremarkable soft tissues. RAD/Shoulder min 2 Views IMPRESSION: Anterior right glenohumeral joint dislocation. No fracture appreciated. Reading Location: [facility] CC: Dr. Daniel Arechiga DO; Dr. Nehal Vu MD ~ Nitrocellulose Maker: Signed [facility] 12-21-2024 Discharge summary Note Date/Time December 21, 2024 7:42pm [facility] Medical Records Department [address] [place] [id number] Emergency Department Summary 12/21/24 MR#: [id number] Acct: [id number] Name: BASILIA CAMPUZANO Rep #:[id number] : 1955 69 From: Daniel swain DO PCP: Dr. Nehal Vu MD Status:REG E R Location: ED HPI History of Present Illness Chief Complaint: Upper Extremity Injury Narrative Narrative: Chief complaint and HPI: 69-year-old female with past medical history of hypothyroidism, HTN presents for evaluation of right shoulder pain after an injury. Patient states she fell in her house in which she hit her right shoulder on the back of the sofa. Has obvious deformity to the right shoulder with pain. Denies any numbness or tingling. Denies any pain in the elbow or clavicle. Not on blood thinners. Review of systems: See HPI Medications: As listed on the chart Allergies: As listed on the chart PFSH: Per chart Vital signs: As listed on the chart. Reviewed. Physical exam: Gen: A&O x3, NAD Head: Normocephalic, atraumatic Eyes: No sclera icterus, conjunctiva clear ENT: Moist mucous membranes Neck: Trachea midline, No JVD, full range of motion, nontender CV: Regular rate, clavicles and chest wall nontender to palpation Resp: Nonlabored respirations Musc: Obvious deformity to the right shoulder, right shoulder tender to palpation along with proximal. Mid/distal arm, elbow, forearm, wrist, hand, fingers nontender to palpation with full range of motion, no ecchymosis or lacerations, good capillary refill, radial pulse +2, sensation intact, compartments soft Skin: Warm, dry Neuro: Alert, oriented, grossly intact, sensation intact Psych: Cooperative, appropriate mood and affect [facility] Medical History Wears glasses Anxiety Thyroid disease Back pain History of diverticulitis Non-smoker History of echocardiogram Cardiology follow-up encounter Hx of colonic polyp HTN (hypertension) History of Sarah thyroiditis History of left heart catheterization (LHC) (~03/09/18) Multiple thyroid nodules Mixed hyperlipidemia Non-ST elevation (NSTEMI) myocardial infarction Palpable abdominal aorta Abnormal cardiac enzyme level Palpitations Prediabetes Epigastric pain Syncope Home Medications ?Medication ?Instructions ?Recorded ?Last Taken ?Type multivitamin 1 ea PO DAILY 03/08/1812/21 History cholecalciferol (vitamin D3) 25 25 mcg PO DAILY 12/21/24 History mcg (1,000 unit) capsule levothyroxine 75 mcg tablet 88 mcg PO DAILY 07/04/21 0 12/21/24 History metoprolol tartrate 25 mg tablet 25 mg PO DAILY 12/21/24 History magnesium 250 mg tablet 250 mg PO DAILY 10/26/2303/06 History ondansetron 4 mg disintegrating 4 mg PO Q8H PRN PRN Na usea #10 tabs 12/21/24 Unknown Rx tablet oxycodone 5 mg capsule 5 mg PO Q6H PRN pain 3 days #12 12/21/24 Unknown Rx caps Allergy/AdvReac Type Severity Reaction Status Date / Time atorvastatin (From Lipitor) AdvReac Other Verified 12/21/24 16:23 Family History Father Heart problem Brother Diabetes Brother Diabetes Sister Diabetes Sister Paroxysmal supraventricular tachycardia Sister Tachycardia Mother Colon polyps Grandmother Stomach cancer Surgical History Hx of dilation and curettage Hx of colonoscopy History of lobectomy of thyroid (~09/10/20) History of left knee surgery History of cholecystectomy Social History household members: spouse current occupational status: employed Smoking Status: Never smoker alcohol intake: never substance use type: does not use EXAM Physical Exam Const Vital Signs: 12/21/24 16:21 Temperature 98.2 F Temperature Source Oral Pulse Rate 53 L Respiratory Rate 16 Blood Pressure 148/68 H Blood Pressure Mean 94 Pulse Ox 97 Oxygen Delivery Method Room Air MDM MDM MDM Narrative Medical decision making narrative: 69-year-old female with past medical history of hypothyroidism, HTN presents for evaluation of right shoulder pain after an injury. Patient states she fell in her house in which she hit her right shoulder on the back of the sofa. Has obvious deformity to the right shoulder with pain. Denies any numbness or tingling. Denies any pain in the elbow or clavicle. Not on blood thinners. Differential diagnosis includes but is not limited to right humerus fracture, right shoulder dislocation. [place] ordered for pain. X-ray of the shoulder ordered. X-ray of the shoulder was personally reviewed and interpreted by sd, ED physician. Patient has an anterior shoulder dislocation without obvious fracture. Radiology in agreement. Patient will warrant procedural sedation forreduction. She tolerated this well. Repeat x-ray of the shoulders personally viewed interpreted by sd, ED physician. Successful reduction. Per radiology there is a probable subtle Hill-Sachs impaction fracture of the superior lateralhumeral head. Patient is nonweightbearing to the right upper extremity. Sling and swath to remain on at all times. Follow-up with orthopedic surgery. Tylenol Motrin as needed for pain. Zofran for nausea. Return precautions explained. She confirmed understand the plan. Patient will discharge home. Procedural Sedation Consent: Risks, benefits, and alternatives discussed with patient and consent obtained Procedure: Immediately prior to procedure a time out was performed to verify thecorrect patient, procedure, equipment, support specialist and site/side marked as required Medication IV: 80 mg of propofol and 50 mg fentanyl Complication: Tolerated well without complication. No hypoxic episodes. Time: Total intra-service time with patient was 6 minutes Joint Reduction Indication: Right anterior shoulder dislocation Consent: Risks, benefits, and alternatives discussed with patient and consent obtained Procedure: The patient was given a total of 80 mg of propofol and 50 mg fentanylfor adequate procedural sedation. The dislocation was reduced to the best of my abilities utilizing traction and rotation technique. Following reduction, immobilization was performed and the extremity's neurovascular status was re-checked and was unchanged from the pre-procedure exam. The patient tolerated theprocedure without complications. Impression: 1. Right anterior shoulder dislocation, status post reduction 2. Right probable subtle Hill-Sachs impaction fracture of the superior lateral humeral head Discharge Plan Triage Chief Complaint: Upper Extremity Injury ED Provider: Daniel Arechiga Dx/Rx/DC Orders Clinical Impression: Anterior shoulder dislocation, Hill Sachs deformity, right Instructions: ED Dislocation: Shoulder (Reduced) Prescriptions: New ondansetron 4 mg tablet,disintegrating 4 mg PO Q8H PRN PRN (Reason: Nausea) Qty: 10 0RF oxycodone 5 mg capsule 5 mg PO Q6H PRN (Reason: pain) 3 Days Qty: 12 0RF No Action levothyroxine 75 mcg tablet 88 mcg PO DAILY cholecalciferol (vitamin D3) 25 mcg (1,000 unit) capsule 25 mcg PO DAILY metoprolol tartrate 25 mg tablet 25 mg PO DAILY multivitamin 1 EACH tablet 1 ea PO DAILY magnesium 250 mg tablet 250 mg PO DAILY Primary Care Provider: Nehal Vu Referrals: Nehal Vu MD [Primary Care Provider] - 3-5 Days Luc Beck DO [Med Staff - Active Staff] - 3-5 Days Activity Restrictions/Additional Instructions: Wear sling and swath at all times. Follow-up with orthopedic surgery. Call tomorrow to make an appointment. Tylenol and Motrin as needed for pain. Narcotics for severe pain. Zofran as needed for nausea. Nonweightbearing to the right upper extremity. Return back to ED symptoms change or worsen. Print Language: Mozambican Disposition Disposition: Home, Self Care What to do if you have Problems For any increased pain, shortness of breath, bleeding, nausea or vomiting, chestpain, or any unexpected problems, contact your Primary Care Provider. Call [facility] ([phone]) or report to the closest Emergency Room. Call 911 if necessary. 12/21/241941 <Electronically signed by Daniel Arechiga DO> Cosigner Signature (if applicable): CC: Dr. Nehal Vu MD ~ Signed [facility] Work Phone: 1(694) 286-940206-01-2021 NoteHNO ID: [id number] Author: Jennifer Franco MD Service: ? Author Type: Physician Type: Progress Notes Filed: 09/10/2020 2:44 PM Note Text: Basilia Campuzano is a 65 year old White female who presents with complaints of No chief complaint on file. HPI: She was in for a virtual visit following her thyroid surgery. She is doing well. She is happy with her results. Operative findings were reviewed with her. Pathology report reviewed with her. She will be following up with her PCP and delivery crew member. 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 This note was partially generated using Game[employer] voice recognition system. HISTORY: This woman presents with bilateral thyroid nodularity with a dominant 4.5 cm lesion involving the right lobe. This was associated with interval enlargement over the past 5 years. Bilateral biopsies were consistent with a benign multinodular goiter. She is also noted to have another 1.6 cm right-sided lesion on ultrasound and 1.9 cm left-sided lesion. After consultation with her delivery crew member, she wished to proceed with right thyroid lobectomy for definitive management of the dominant 4.5 cm lesion. She understood the differential diagnosis including the risks, benefits, options, and potential complications and the extent of surgery would be dependent on operative findings. She wished to proceed with the plan for right thyroid lobectomy. Findings at surgery revealed diffuse enlargement of her thyroid gland with multiple nodules and encroachment on the trachea. Intraoperatively, multiple cervical lymph nodes were identified. These were removed for biopsy. The dominant lesion involving the right lobe was removed with right thyroid lobectomy. There was increased vascularity, fibrosis, and nodularity. Both lobes were markedly enlarged. Because of the asymmetrical nature of the persistent thyroid enlargement after removal of the dominant 4.5 cm lesion with right thyroid lobectomy, a partial left thyroid lobectomy was done removing the anterior half of the left lobe. She wished to try to preserve thyroid function, but based on the gross appearance of her thyroid gland, it was felt that she had diffuse disease and would be uncertain whether this would be possible, but per the preoperative discussion and informed consent, the posterior half of the left lobe of the thyroid was left in place removing the dominant nodularity. An equivocally vascularized right parathyroid gland was partially autotransplanted on the right sternocleidomastoid muscle. There were no apparent complications. Postoperatively, she remained stable. She was observed for period of time prior to being discharged home. There was no evidence of any complication or problems. ? PAST MEDICAL HISTORY Diagnosis Date - Arrhythmia - Multiple thyroid nodules PAST SURGICAL HISTORY Procedure Laterality Date - KNEE SURGERY HX Left meniscus repair - REMOVAL GALLBLADDER - THYROID LOBECTOMY,UNILAT Right 08/29/2020 Dr. Franco Social History Tobacco Use - Smoking status: Never Smoker - Smokeless tobacco: Never Used Substance Use Topics - Alcohol use: Never - Drug use: Not on file No family history on file. ALLERGIES No Known Allergies Current Outpatient Medications Medication Sig - metoprolol tartrate, short acting, (LOPRESSOR) 12.5 mg tab Take by mouth every 12 hours. 1 QD - ondansetron (ZOFRAN) 4 mg tablet Take 1 tablet by mouth once daily as needed for Nausea/Vomiting (for nausea.) for up to 4 doses. (Patient not taking: Reported on 09/10/2020 ) No current facility-administered medications for this visit. REVIEW OF SYSTEMS: Review of Systems Constitutional: Negative for chills, fever and weight loss. HENT: Negative for congestion, ear pain, hearing loss, sinus pain and sore throat. Eyes: Negative for blurred vision, double vision and pain. Respiratory: Negative for cough, shortness of breath and wheezing. Cardiovascular: Negative for chest pain, palpitations and leg swelling. Gastrointestinal: Negative for abdominal pain, constipation, diarrhea, heartburn, nausea and vomiting. Genitourinary: Negative for dysuria, frequency and urgency. Musculoskeletal: Negative for back pain, joint pain and neck pain. Skin: Negative for itching and rash. Neurological: Negative for dizziness, weakness and headaches. Endo/Heme/Allergies: Negative for environmental allergies. Does not bruise/bleed easily. Psychiatric/Behavioral: Negative for depression and memory loss. The patient is not nervous/anxious and does not have insomnia. PHYSICAL EXAM: Ht 5' 4 (1.63m) Wt 150 lb (68.0kg) BMI 25.73 kg/(m2). General Evaluation: Deferred because of virtual visit today. Procedures: No notes on file Diagnosis: Postoperative visit (primary encounter diagnosis) Plan Assessment: She is status (more content not included)...[facility] 08-29-2020 NoteHNO ID: [id number] Author: Carol Dumont RN Service: ? Author Type: Registered Nurse Type: Nursing Progress Note Filed: 08/29/2020 2:57 PM Note Text: Patient states ready for discharge. No complaints [facility] difficulty [facility] NoteHNO ID: [id number] Author: Carol Dumont RN Service: ? Author Type: Registered Nurse Type: Nursing Progress Note Filed: 08/29/2020 11:04 AM Note Text: Patient taking [facility] 08-[facility]-2020 NoteHNO ID: [id number] Author: Annabelle Castillo APRN.DYE AND CHEMICAL COORDINATOR Service: Anesthesiology Author Type: Nurse Scientific Software Developer Type: Anesthesia Procedure Notes Filed: 08/29/2020 8:57 AM Note Text: ANESTHESIOLOGY PROCEDURE NOTE Airway General Information Procedure Start Time/Medication Administration: 08/29/2020 8:29 AM Patient location during procedure: OR Timeout Performed Pre-procedure: timeout performed Consent Obtained: Yes Patient identity confirmed: arm band and patient Staffing Anesthesiologist: dEgardo Joyce DO DYE AND CHEMICAL COORDINATOR: Annabelle Castillo APRN.DYE AND CHEMICAL COORDINATOR Performed by: anesthesiologist Indications and Patient Condition Preoxygenated: yes Patient position: sniffing Difficult Mask: No Indications for airway management: anesthesia anesthesia circuit Method: asleep Cricoid Pressure: No Final Airway Details Final airway type: endotracheal airway Final Endotracheal Airway: NIM tube Cuffed: yes Successful intubation technique: video laryngoscopy Devices used: Glidescope Endotracheal tube insertion site: oral Blade: Lin Blade size: #3 (S3) ETT size (mm): 7.0 ETT measured from: correct placement verified under video laryngoscopy. Placement verified by: chest auscultation and capnometry Cormack-Lehane Classification: grade I - full view of glottis Number of attempts at approach: 2 Failed airway: no Unrecognized esophageal intubation: no Airway not difficult SIGNATURE: Annabelle Castillo APRN.CRNA PATIENT NAME: Basilia Campuzano DATE: August 29, 2020 TIME: 8:55 AM [facility]: [id number] NoteHNO ID: [id number] Author: Marisol Juarez APRN.CNP Service: Anesthesiology Author Type: Nurse Practitioner Type: Progress Notes Filed: 08/27/2020 12:31 PM Note Text: PST reviewed, no [facility] NoteHNO ID: [id number] Author: Jennifer Franco Service: ? Author Type: Physician Type: Progress Notes Filed: 07/23/2020 5:47 PM Note Text: Basilia Campuzano is a 65 year old White female who presents with complaints of New Patient (Multinodular Goiter - refer Dr. Armenta ) HPI: She was in for evaluation of her multinodular goiter. She has had progressive enlargement of a right sided lesion noted by her PCP. She does not have any significant compressive type symptoms. Bilateral FNA biopsies showed benign lesions. She has a 4.5 and a 1.6 cm lesions on the right side and a 1.9 cm left-sided lesion. Her overall thyroid gland is enlarged on ultrasonography. This has been enlarging over the past 5 years reportedly. 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 We discussed the role for lobectomy alone for the dominant 4.5 cm mass versus more extensive surgery. I reviewed the differential diagnosis including the risk benefits options and potential complications. Based on the benign finding of the left sided biopsy and that the lesion is only 1.9 cm her preference is to preserve it with the hope that it helps maintain function and decreases risks associate with a bilateral procedure. Furthermore she would be interested in doing this on an outpatient basis if possible. Based on the FNA biopsy being benign additional frozen section would probably not be beneficial. She would like however to have the right-sided lesion removed with right thyroid lobectomy for definitive diagnosis and management. TSH was normal at 1.64. She has no other risk factors for thyroid cancer. Her participated in the office visit virtually by phone. This note was partially generated using [employer] voice recognition system. No past medical history onfile. History reviewed. No pertinent surgical history. Social History Tobacco Use - Smoking status: Never Smoker - Smokeless tobacco: Never Used Substance Use Topics - Alcohol use: Never - Drug use: Not on file No family history on file. ALLERGIES Not on File Current Outpatient Medications Medication Sig - metoprolol tartrate, short acting, (LOPRESSOR) 12.5 mg tab Take by mouth every 12 hours. 1 QD No current facility-administered medications for this visit. REVIEW OF SYSTEMS: Review of Systems Constitutional: Negative for chills, fever and weight loss. HENT: Negative. Negative for congestion, ear pain, hearing loss, sinus pain and sore throat. Eyes: Negative. Negative for blurred vision, double vision and pain. Respiratory: Negative for cough, shortness of breath and wheezing. Cardiovascular: Negative. Negative for chest pain, palpitations and leg swelling. Gastrointestinal: Negative for abdominal pain, constipation, diarrhea, heartburn, nausea and vomiting. Genitourinary: Negative. Negative for dysuria, frequency and urgency. Musculoskeletal: Negative. Negative for back pain, joint pain and neck pain. Skin: Negative for itching and rash. Neurological: Negative for dizziness, weakness and headaches. Endo/Heme/Allergies: Negative for environmental allergies. Does not bruise/bleed easily. Psychiatric/Behavioral: Negative for depression and memory loss. The patient is nervous/anxious. The patient does not have insomnia. PHYSICAL EXAM: BP 114/48 Pulse 53 Temp (Src) 98.4 (Temporal) Ht 5' 4 (1.63m) Wt 153 lb (69.4kg) BMI 26.25 kg/(m2). General Evaluation: On exam she has asymmetrical enlargement of her right thyroid lobe causing tracheal deviation slightly to the right. No lymphadenopathy. No symptoms are noted with extrinsic pressure. Head: Normocephalic Neck: No JVD Chest: Symmetrical Abdomen: No acute findings noted Genitalia: Deferred Breast: Deferred Back, including spine: No deformity Extremities: Normal ROM Constitutional: No acute distress Eyes: EOMI Ears, nose, mouth, and throat: Grossly WNL Respiratory/lungs: No acute distress or dyspnea Musculoskeletal: Ambulatory Skin: No jaundice Neurologic: CN grossly intact Psychiatric: Alert, Oriented Hematologic/lymphatic: No lymphedema Procedures: No notes on file Diagnosis: Thyroid mass (primary encounter diagnosis) Plan Assessment: She has bilateral thyroid nodularity with a dominant 4.5 cm lesion involving the right lobe which has been associated with interval enlargement over the past 5 years. Bilateral biopsies were consistent with a benign multinodular goiter. She also has a 1.9 cm left-sided lesion and another 1.6 cm right sided lesion reported on her ultrasonography. Plan: She would like to proceed with her delivery crew member's recommendation for definitive thyroid surgery and her preference is to limit this to right thyroid lobectomy at this time for definitive management of the 4.5 cm and 1.6 cm right sided lesions, the more asymmetrically enlarged right thyroid lobe. She understands the (more content not included)...[facility] Diagnosis Onset Date Resolution Status Mitral valve insufficiency a cute Palpitations acute Mixed hyperlipidemia chronic [facility] Work Phone: Evaluation noteNo assessment information available [facility] Work Phone: Evaluation note* Diagnosis Onset Date Resolution Status Admit Date Mitral valve insufficiency acute January 04, 2025 10:22am Palpitations acute January 042024 10:22am Supraventricular tachycardia acute January 04, 2025 10:22am Mixed hyperlipidemia chronic Sept 2024 10:22am [facility] Work Phone: Hospital Discharge instructionsAdditional Instructions Wear sling and swath at all times. Follow-up with orthopedic surgery. Call tomorrow to make an appointment. Tylenol and Motrin as needed for pain. Narcotics for severe pain. Zofran as needed for nausea. Nonweightbearing to the right upper extremity. Return back to ED symptoms change or worsen.[facility] Work Phone: Instructions* Name Dates Details Patient Instructions Indication:Hypercholesteremia Start:19-Apr-2020 Instruction Type:Provider Instructions for Treatment How to Access Health Informa tion Online using Patient Portal and [employer] Apps Indication:Hypercholesteremia Start:19-Apr-2020 Instruction Type:Patient Education How to access health informa tion online Indication:Well woman exam (Renamed from Encounter for well woman exam) Start:15-Dec-2019 Instruction Type:Patient Education How to access health informa tion online - Detail Indication:Well woman exam (Renamed from Encounter for well woman exam) Start:15-Dec-2019 Instruction Type:Patient Education Patient Instructions Indication:Well woman exam (Renamed from Encounter for well woman exam) Start:15-Dec-2019 Instruction Type:Provider Instructions for Treatment How to access health informa tion online Indication:Non-STEMI (non-ST elevated myocardial infarction) Start:28-Mar-2019 Instruction Type:Patient Education How to access health informa tion online - Detail Indication:Non-STEMI (non-ST elevated myocardial infarction) Start:28-Mar-2019 Instruction Type:Patient Education Patient Instructions Indication:Non-STEMI (non-ST elevated myocardial infarction) Start:28-Mar-2019 Instruction Type:Provider Instructions for Treatment How to access health informa tion online Indication:Current nonsmoker (Renamed from Current non-smoker) Start:18-Nov-2018 Instruction Type:Patient Education How to access health informa tion online - Detail Indication:Current nonsmoker (Renamed from Current non-smoker) Start:18-Nov-2018 Instruction Type:Patient Education Patient Instructions Indication:BMI 24.0-24.9, adult Start:18-Nov-2018 Instruction Type:Provider Instructions for Treatment How to access health informa tion online Indication:Non-STEMI (non-ST elevated myocardial infarction) Start:20-Sep-2018 Instruction Type:Patient Education How to access health informa tion online - Detail Indication:Non-STEMI (non-ST elevated myocardial infarction) Start:20-Sep-2018 Instruction Type:Patient Education Patient Instructions Indication:Non-STEMI (non-ST elevated myocardial infarction) Start:20-Sep-2018 Instruction Type:Provider Instructions for Treatment How to access health informa tion online Indication:Well woman exam (Renamed from Encounter for well woman exam) Start:08-Jun-2018 Instruction Type:Patient Education How to access health informa tion online - Detail Indication:Well woman exam (Renamed from Encounter for well woman exam) Start:08-Jun-2018 Instruction Type:Patient Education Patient Instructions Indication:Well woman exam (Renamed from Encounter for well woman exam) Start:08-Jun-2018 Instruction Type:Provider Instructions for Treatment How to access health informa tion online Indication:Non-STEMI (non-ST elevated myocardial infarction) Start:15-Mar-2018 Instruction Type:Patient Education How to access health informa tion online - Detail Indication:Non-STEMI (non-ST elevated myocardial infarction) Start:15-Mar-2018 Instruction Type:Patient Education Patient Instructions Indication:Non-STEMI (non-ST elevated myocardial infarction) Start:15-Mar-2018 Instruction Type:Provider Instructions for Treatment How to access health informa tion online Indication:Diverticulitis Start:08-Feb-2018 Instruction Type:Patient Education How to access health informa tion online - Detail Indication:Diverticulitis Start:08-Feb-2018 Instruction Type:Patient Education Patient Instructions Indication:Diverticulitis Start:08-Feb-2018 Instruction Type:Provider Instructions for Treatment How to access health informa tion online Indication:Well woman exam (Renamed from Encounter for well woman exam) Start:25-May-2017 Instruction Type:Patient Education How to access health informa tion online - Detail Indication:Well woman exam (Renamed from Encounter for well woman exam) Start:25-May-2017 Instruction Type:Patient Education Patient Instructions Indication:Well woman exam (Renamed from Encounter for well woman exam) Start:25-May-2017 Instruction Type:Provider Instructions for Treatment How to access health informa tion online Indication:BMI 24.0-24.9, adult Start:12-Jan-2017 Instruction Type:Patient Education How to access health informa tion online - Detail Indication:BMI 24.0-24.9, adult Start:12-Jan-2017 Instruction Type:Patient Education Patient Instructions Indication:BMI 24.0-24.9, adult Start:12-Jan-2017 Instruction Type:Provider Instructions for Treatment How to access health informa tion online Indication:BMI 26.0-26.9,adult Start:08-Sep-2016 Instruction Type:Patient Education How to access health informa tion online - Detail Indication:BMI 26.0-26.9,adult Start:08-Sep-2016 Instruction Type:Patient Education Patient Instructions Indication:BMI 26.0-26.9,adult Start:08-Sep-2016 Instruction Type:Provider Instructions for Treatment How to access health informa tion online Indication:Well woman exam (Renamed from Encounter for well woman exam) Start:05-May-2016 Instruction Type:Patient Education How to access health informa tion online - Detail Indication:Well woman exam (Renamed from Encounter for well woman exam) Start:05-May-2016 Instruction Type:Patient Education Patient Instructions Indication:Well woman exam (Renamed from Encounter for well woman exam) Start:05-May-2016 Instruction Type:Provider Instructions for Treatment How to access health informa tion online Indication:Acute cystitis without hematuria Start:23-Jul-2015 Instruction Type:Patient Education How to access health informa tion online - Detail Indication:Acute cystitis without hematuria Start:23-Jul-2015 Instruction Type:Patient Education Patient Instructions Indication:Acute cystitis without hematuria Start:23-Jul-2015 Instruction Type:Provider Instructions for Treatment How to access health informa tion online Indication:Thyroid nodule Start:18-Jun-2015 Instruction Type:Patient Education How to access health informa tion online - Detail Indication:Thyroid nodule Start:18-Jun-2015 Instruction Type:Patient Education Patient Instructions Indication:Thyroid nodule Start:18-Jun-2015 Instruction Type:Provider Instructions for Treatment How to access health informa tion online Indication:Well woman exam Start:16-Oct-2014 Instruction Type:Patient Education How to access health informa tion online - Detail Indication:Well woman exam Start:16-Oct-2014 Instruction Type:Patient Education Patient Instructions Indication:Well woman exam Start:16-Oct-2014 Instruction Type:Provider Instructions for Treatment [facility]; [facility] Work Phone: Instructions* Name Dates Details Patient Instructions Indication:Hypercholesteremia Start:19-Apr-2020 Instruction Type:Provider Instructions for Treatment How to Access Health Informa tion Online using Patient Portal and [employer] Apps Indication:Hypercholesteremia Start:19-Apr-2020 Instruction Type:Patient Education How to access health informa tion online Indication:Well woman exam (Renamed from Encounter for well woman exam) Start:15-Dec-2019 Instruction Type:Patient Education How to access health informa tion online - Detail Indication:Well woman exam (Renamed from Encounter for well woman exam) Start:15-Dec-2019 Instruction Type:Patient Education Patient Instructions Indication:Well woman exam (Renamed from Encounter for well woman exam) Start:15-Dec-2019 Instruction Type:Provider Instructions for Treatment How to access health informa tion online Indication:Non-STEMI (non-ST elevated myocardial infarction) Start:28-Mar-2019 Instruction Type:Patient Education How to access health informa tion online - Detail Indication:Non-STEMI (non-ST elevated myocardial infarction) Start:28-Mar-2019 Instruction Type:Patient Education Patient Instructions Indication:Non-STEMI (non-ST elevated myocardial infarction) Start:28-Mar-2019 Instruction Type:Provider Instructions for Treatment How to access health informa tion online Indication:Current nonsmoker (Renamed from Current non-smoker) Start:18-Nov-2018 Instruction Type:Patient Education How to access health informa tion online - Detail Indication:Current nonsmoker (Renamed from Current non-smoker) Start:18-Nov-2018 Instruction Type:Patient Education Patient Instructions Indication:BMI 24.0-24.9, adult Start:18-Nov-2018 Instruction Type:Provider Instructions for Treatment How to access health informa tion online Indication:Non-STEMI (non-ST elevated myocardial infarction) Start:20-Sep-2018 Instruction Type:Patient Education How to access health informa tion online - Detail Indication:Non-STEMI (non-ST elevated myocardial infarction) Start:20-Sep-2018 Instruction Type:Patient Education Patient Instructions Indication:Non-STEMI (non-ST elevated myocardial infarction) Start:20-Sep-2018 Instruction Type:Provider Instructions for Treatment How to access health informa tion online Indication:Well woman exam (Renamed from Encounter for well woman exam) Start:08-Jun-2018 Instruction Type:Patient Education How to access health informa tion online - Detail Indication:Well woman exam (Renamed from Encounter for well woman exam) Start:08-Jun-2018 Instruction Type:Patient Education Patient Instructions Indication:Well woman exam (Renamed from Encounter for well woman exam) Start:08-Jun-2018 Instruction Type:Provider Instructions for Treatment How to access health informa tion online Indication:Non-STEMI (non-ST elevated myocardial infarction) Start:15-Mar-2018 Instruction Type:Patient Education How to access health informa tion online - Detail Indication:Non-STEMI (non-ST elevated myocardial infarction) Start:15-Mar-2018 Instruction Type:Patient Education Patient Instructions Indication:Non-STEMI (non-ST elevated myocardial infarction) Start:15-Mar-2018 Instruction Type:Provider Instructions for Treatment How to access health informa tion online Indication:Diverticulitis Start:08-Feb-2018 Instruction Type:Patient Education How to access health informa tion online - Detail Indication:Diverticulitis Start:08-Feb-2018 Instruction Type:Patient Education Patient Instructions Indication:Diverticulitis Start:08-Feb-2018 Instruction Type:Provider Instructions for Treatment How to access health informa tion online Indication:Well woman exam (Renamed from Encounter for well woman exam) Start:25-May-2017 Instruction Type:Patient Education How to access health informa tion online - Detail Indication:Well woman exam (Renamed from Encounter for well woman exam) Start:25-May-2017 Instruction Type:Patient Education Patient Instructions Indication:Well woman exam (Renamed from Encounter for well woman exam) Start:25-May-2017 Instruction Type:Provider Instructions for Treatment How to access health informa tion online Indication:BMI 24.0-24.9, adult Start:12-Jan-2017 Instruction Type:Patient Education How to access health informa tion online - Detail Indication:BMI 24.0-24.9, adult Start:12-Jan-2017 Instruction Type:Patient Education Patient Instructions Indication:BMI 24.0-24.9, adult Start:12-Jan-2017 Instruction Type:Provider Instructions for Treatment How to access health informa tion online Indication:BMI 26.0-26.9,adult Start:08-Sep-2016 Instruction Type:Patient Education How to access health informa tion online - Detail Indication:BMI 26.0-26.9,adult Start:08-Sep-2016 Instruction Type:Patient Education Patient Instructions Indication:BMI 26.0-26.9,adult Start:08-Sep-2016 Instruction Type:Provider Instructions for Treatment How to access health informa tion online Indication:Well woman exam (Renamed from Encounter for well woman exam) Start:05-May-2016 Instruction Type:Patient Education How to access health informa tion online - Detail Indication:Well woman exam (Renamed from Encounter for well woman exam) Start:05-May-2016 Instruction Type:Patient Education Patient Instructions Indication:Well woman exam (Renamed from Encounter for well woman exam) Start:05-May-2016 Instruction Type:Provider Instructions for Treatment How to access health informa tion online Indication:Acute cystitis without hematuria Start:23-Jul-2015 Instruction Type:Patient Education How to access health informa tion online - Detail Indication:Acute cystitis without hematuria Start:23-Jul-2015 Instruction Type:Patient Education Patient Instructions Indication:Acute cystitis without hematuria Start:23-Jul-2015 Instruction Type:Provider Instructions for Treatment How to access health informa tion online Indication:Thyroid nodule Start:18-Jun-2015 Instruction Type:Patient Education How to access health informa tion online - Detail Indication:Thyroid nodule Start:18-Jun-2015 Instruction Type:Patient Education Patient Instructions Indication:Thyroid nodule Start:18-Jun-2015 Instruction Type:Provider Instructions for Treatment How to access health informa tion online Indication:Well woman exam Start:16-Oct-2014 Instruction Type:Patient Education How to access health informa tion online - Detail Indication:Well woman exam Start:16-Oct-2014 Instruction Type:Patient Education Patient Instructions Indication:Well woman exam Start:16-Oct-2014 Instruction Type:Provider Instructions for Treatment [facility]; [facility] Work Phone: Instructions* Name Dates Details Patient Instructions Indication:Hypercholesteremia Start:19-Apr-2020 Instruction Type:Provider Instructions for Treatment How to Access Health Informa tion Online using Patient Portal and [employer] Apps Indication:Hypercholesteremia Start:19-Apr-2020 Instruction Type:Patient Education How to access health informa tion online Indication:Well woman exam (Renamed from Encounter for well woman exam) Start:15-Dec-2019 Instruction Type:Patient Education How to access health informa tion online - Detail Indication:Well woman exam (Renamed from Encounter for well woman exam) Start:15-Dec-2019 Instruction Type:Patient Education Patient Instructions Indication:Well woman exam (Renamed from Encounter for well woman exam) Start:15-Dec-2019 Instruction Type:Provider Instructions for Treatment How to access health informa tion online Indication:Non-STEMI (non-ST elevated myocardial infarction) Start:28-Mar-2019 Instruction Type:Patient Education How to access health informa tion online - Detail Indication:Non-STEMI (non-ST elevated myocardial infarction) Start:28-Mar-2019 Instruction Type:Patient Education Patient Instructions Indication:Non-STEMI (non-ST elevated myocardial infarction) Start:28-Mar-2019 Instruction Type:Provider Instructions for Treatment How to access health informa tion online Indication:Current nonsmoker (Renamed from Current non-smoker) Start:18-Nov-2018 Instruction Type:Patient Education How to access health informa tion online - Detail Indication:Current nonsmoker (Renamed from Current non-smoker) Start:18-Nov-2018 Instruction Type:Patient Education Patient Instructions Indication:BMI 24.0-24.9, adult Start:18-Nov-2018 Instruction Type:Provider Instructions for Treatment How to access health informa tion online Indication:Non-STEMI (non-ST elevated myocardial infarction) Start:20-Sep-2018 Instruction Type:Patient Education How to access health informa tion online - Detail Indication:Non-STEMI (non-ST elevated myocardial infarction) Start:20-Sep-2018 Instruction Type:Patient Education Patient Instructions Indication:Non-STEMI (non-ST elevated myocardial infarction) Start:20-Sep-2018 Instruction Type:Provider Instructions for Treatment How to access health informa tion online Indication:Well woman exam (Renamed from Encounter for well woman exam) Start:08-Jun-2018 Instruction Type:Patient Education How to access health informa tion online - Detail Indication:Well woman exam (Renamed from Encounter for well woman exam) Start:08-Jun-2018 Instruction Type:Patient Education Patient Instructions Indication:Well woman exam (Renamed from Encounter for well woman exam) Start:08-Jun-2018 Instruction Type:Provider Instructions for Treatment How to access health informa tion online Indication:Non-STEMI (non-ST elevated myocardial infarction) Start:15-Mar-2018 Instruction Type:Patient Education How to access health informa tion online - Detail Indication:Non-STEMI (non-ST elevated myocardial infarction) Start:15-Mar-2018 Instruction Type:Patient Education Patient Instructions Indication:Non-STEMI (non-ST elevated myocardial infarction) Start:15-Mar-2018 Instruction Type:Provider Instructions for Treatment How to access health informa tion online Indication:Diverticulitis Start:08-Feb-2018 Instruction Type:Patient Education How to access health informa tion online - Detail Indication:Diverticulitis Start:08-Feb-2018 Instruction Type:Patient Education Patient Instructions Indication:Diverticulitis Start:08-Feb-2018 Instruction Type:Provider Instructions for Treatment How to access health informa tion online Indication:Well woman exam (Renamed from Encounter for well woman exam) Start:25-May-2017 Instruction Type:Patient Education How to access health informa tion online - Detail Indication:Well woman exam (Renamed from Encounter for well woman exam) Start:25-May-2017 Instruction Type:Patient Education Patient Instructions Indication:Well woman exam (Renamed from Encounter for well woman exam) Start:25-May-2017 Instruction Type:Provider Instructions for Treatment How to access health informa tion online Indication:BMI 24.0-24.9, adult Start:12-Jan-2017 Instruction Type:Patient Education How to access health informa tion online - Detail Indication:BMI 24.0-24.9, adult Start:12-Jan-2017 Instruction Type:Patient Education Patient Instructions Indication:BMI 24.0-24.9, adult Start:12-Jan-2017 Instruction Type:Provider Instructions for Treatment How to access health informa tion online Indication:BMI 26.0-26.9,adult Start:08-Sep-2016 Instruction Type:Patient Education How to access health informa tion online - Detail Indication:BMI 26.0-26.9,adult Start:08-Sep-2016 Instruction Type:Patient Education Patient Instructions Indication:BMI 26.0-26.9,adult Start:08-Sep-2016 Instruction Type:Provider Instructions for Treatment How to access health informa tion online Indication:Well woman exam (Renamed from Encounter for well woman exam) Start:05-May-2016 Instruction Type:Patient Education How to access health informa tion online - Detail Indication:Well woman exam (Renamed from Encounter for well woman exam) Start:05-May-2016 Instruction Type:Patient Education Patient Instructions Indication:Well woman exam (Renamed from Encounter for well woman exam) Start:05-May-2016 Instruction Type:Provider Instructions for Treatment How to access health informa tion online Indication:Acute cystitis without hematuria Start:23-Jul-2015 Instruction Type:Patient Education How to access health informa tion online - Detail Indication:Acute cystitis without hematuria Start:23-Jul-2015 Instruction Type:Patient Education Patient Instructions Indication:Acute cystitis without hematuria Start:23-Jul-2015 Instruction Type:Provider Instructions for Treatment How to access health informa tion online Indication:Thyroid nodule Start:18-Jun-2015 Instruction Type:Patient Education How to access health informa tion online - Detail Indication:Thyroid nodule Start:18-Jun-2015 Instruction Type:Patient Education Patient Instructions Indication:Thyroid nodule Start:18-Jun-2015 Instruction Type:Provider Instructions for Treatment How to access health informa tion online Indication:Well woman exam Start:16-Oct-2014 Instruction Type:Patient Education How to access health informa tion online - Detail Indication:Well woman exam Start:16-Oct-2014 Instruction Type:Patient Education Patient Instructions Indication:Well woman exam Start:16-Oct-2014 Instruction Type:Provider Instructions for Treatment [facility]; [facility] Work Phone: Instructions* Name Dates Details Patient Instructions Indication:Hypercholesteremia Start:19-Apr-2020 Instruction Type:Provider Instructions for Treatment How to Access Health Informa tion Online using Patient Portal and [employer] Apps Indication:Hypercholesteremia Start:19-Apr-2020 Instruction Type:Patient Education How to access health informa tion online Indication:Well woman exam (Renamed from Encounter for well woman exam) Start:15-Dec-2019 Instruction Type:Patient Education How to access health informa tion online - Detail Indication:Well woman exam (Renamed from Encounter for well woman exam) Start:15-Dec-2019 Instruction Type:Patient Education Patient Instructions Indication:Well woman exam (Renamed from Encounter for well woman exam) Start:15-Dec-2019 Instruction Type:Provider Instructions for Treatment How to access health informa tion online Indication:Non-STEMI (non-ST elevated myocardial infarction) Start:28-Mar-2019 Instruction Type:Patient Education How to access health informa tion online - Detail Indication:Non-STEMI (non-ST elevated myocardial infarction) Start:28-Mar-2019 Instruction Type:Patient Education Patient Instructions Indication:Non-STEMI (non-ST elevated myocardial infarction) Start:28-Mar-2019 Instruction Type:Provider Instructions for Treatment How to access health informa tion online Indication:Current nonsmoker (Renamed from Current non-smoker) Start:18-Nov-2018 Instruction Type:Patient Education How to access health informa tion online - Detail Indication:Current nonsmoker (Renamed from Current non-smoker) Start:18-Nov-2018 Instruction Type:Patient Education Patient Instructions Indication:BMI 24.0-24.9, adult Start:18-Nov-2018 Instruction Type:Provider Instructions for Treatment How to access health informa tion online Indication:Non-STEMI (non-ST elevated myocardial infarction) Start:20-Sep-2018 Instruction Type:Patient Education How to access health informa tion online - Detail Indication:Non-STEMI (non-ST elevated myocardial infarction) Start:20-Sep-2018 Instruction Type:Patient Education Patient Instructions Indication:Non-STEMI (non-ST elevated myocardial infarction) Start:20-Sep-2018 Instruction Type:Provider Instructions for Treatment How to access health informa tion online Indication:Well woman exam (Renamed from Encounter for well woman exam) Start:08-Jun-2018 Instruction Type:Patient Education How to access health informa tion online - Detail Indication:Well woman exam (Renamed from Encounter for well woman exam) Start:08-Jun-2018 Instruction Type:Patient Education Patient Instructions Indication:Well woman exam (Renamed from Encounter for well woman exam) Start:08-Jun-2018 Instruction Type:Provider Instructions for Treatment How to access health informa tion online Indication:Non-STEMI (non-ST elevated myocardial infarction) Start:15-Mar-2018 Instruction Type:Patient Education How to access health informa tion online - Detail Indication:Non-STEMI (non-ST elevated myocardial infarction) Start:15-Mar-2018 Instruction Type:Patient Education Patient Instructions Indication:Non-STEMI (non-ST elevated myocardial infarction) Start:15-Mar-2018 Instruction Type:Provider Instructions for Treatment How to access health informa tion online Indication:Diverticulitis Start:08-Feb-2018 Instruction Type:Patient Education How to access health informa tion online - Detail Indication:Diverticulitis Start:08-Feb-2018 Instruction Type:Patient Education Patient Instructions Indication:Diverticulitis Start:08-Feb-2018 Instruction Type:Provider Instructions for Treatment How to access health informa tion online Indication:Well woman exam (Renamed from Encounter for well woman exam) Start:25-May-2017 Instruction Type:Patient Education How to access health informa tion online - Detail Indication:Well woman exam (Renamed from Encounter for well woman exam) Start:25-May-2017 Instruction Type:Patient Education Patient Instructions Indication:Well woman exam (Renamed from Encounter for well woman exam) Start:25-May-2017 Instruction Type:Provider Instructions for Treatment How to access health informa tion online Indication:BMI 24.0-24.9, adult Start:12-Jan-2017 Instruction Type:Patient Education How to access health informa tion online - Detail Indication:BMI 24.0-24.9, adult Start:12-Jan-2017 Instruction Type:Patient Education Patient Instructions Indication:BMI 24.0-24.9, adult Start:12-Jan-2017 Instruction Type:Provider Instructions for Treatment How to access health informa tion online Indication:BMI 26.0-26.9,adult Start:08-Sep-2016 Instruction Type:Patient Education How to access health informa tion online - Detail Indication:BMI 26.0-26.9,adult Start:08-Sep-2016 Instruction Type:Patient Education Patient Instructions Indication:BMI 26.0-26.9,adult Start:08-Sep-2016 Instruction Type:Provider Instructions for Treatment How to access health informa tion online Indication:Well woman exam (Renamed from Encounter for well woman exam) Start:05-May-2016 Instruction Type:Patient Education How to access health informa tion online - Detail Indication:Well woman exam (Renamed from Encounter for well woman exam) Start:05-May-2016 Instruction Type:Patient Education Patient Instructions Indication:Well woman exam (Renamed from Encounter for well woman exam) Start:05-May-2016 Instruction Type:Provider Instructions for Treatment How to access health informa tion online Indication:Acute cystitis without hematuria Start:23-Jul-2015 Instruction Type:Patient Education How to access health informa tion online - Detail Indication:Acute cystitis without hematuria Start:23-Jul-2015 Instruction Type:Patient Education Patient Instructions Indication:Acute cystitis without hematuria Start:23-Jul-2015 Instruction Type:Provider Instructions for Treatment How to access health informa tion online Indication:Thyroid nodule Start:18-Jun-2015 Instruction Type:Patient Education How to access health informa tion online - Detail Indication:Thyroid nodule Start:18-Jun-2015 Instruction Type:Patient Education Patient Instructions Indication:Thyroid nodule Start:18-Jun-2015 Instruction Type:Provider Instructions for Treatment How to access health informa tion online Indication:Well woman exam Start:16-Oct-2014 Instruction Type:Patient Education How to access health informa tion online - Detail Indication:Well woman exam Start:16-Oct-2014 Instruction Type:Patient Education Patient Instructions Indication:Well woman exam Start:16-Oct-2014 Instruction Type:Provider Instructions for Treatment [facility]; [facility] Work Phone: Instructions* Name Dates Details Patient Instructions Indication:Hypercholesteremia Start:19-Apr-2020 Instruction Type:Provider Instructions for Treatment How to Access Health Informa tion Online using Patient Portal and [employer] Indication:Hypercholesteremia Start:19-Apr-2020 Instruction Type:Patient Education How to access health informa tion online Indication:Well woman exam (Renamed from Encounter for well woman exam) Start:15-Dec-2019 Instruction Type:Patient Education How to access health informa tion online - Detail Indication:Well woman exam (Renamed from Encounter for well woman exam) Start:15-Dec-2019 Instruction Type:Patient Education Patient Instructions Indication:Well woman exam (Renamed from Encounter for well woman exam) Start:15-Dec-2019 Instruction Type:Provider Instructions for Treatment How to access health informa tion online Indication:Non-STEMI (non-ST elevated myocardial infarction) Start:28-Mar-2019 Instruction Type:Patient Education How to access health informa tion online - Detail Indication:Non-STEMI (non-ST elevated myocardial infarction) Start:28-Mar-2019 Instruction Type:Patient Education Patient Instructions Indication:Non-STEMI (non-ST elevated myocardial infarction) Start:28-Mar-2019 Instruction Type:Provider Instructions for Treatment How to access health informa tion online Indication:Current nonsmoker (Renamed from Current non-smoker) Start:18-Nov-2018 Instruction Type:Patient Education How to access health informa tion online - Detail Indication:Current nonsmoker (Renamed from Current non-smoker) Start:18-Nov-2018 Instruction Type:Patient Education Patient Instructions Indication:BMI 24.0-24.9, adult Start:18-Nov-2018 Instruction Type:Provider Instructions for Treatment How to access health informa tion online Indication:Non-STEMI (non-ST elevated myocardial infarction) Start:20-Sep-2018 Instruction Type:Patient Education How to access health informa tion online - Detail Indication:Non-STEMI (non-ST elevated myocardial infarction) Start:20-Sep-2018 Instruction Type:Patient Education Patient Instructions Indication:Non-STEMI (non-ST elevated myocardial infarction) Start:20-Sep-2018 Instruction Type:Provider Instructions for Treatment How to access health informa tion online Indication:Well woman exam (Renamed from Encounter for well woman exam) Start:08-Jun-2018 Instruction Type:Patient Education How to access health informa tion online - Detail Indication:Well woman exam (Renamed from Encounter for well woman exam) Start:08-Jun-2018 Instruction Type:Patient Education Patient Instructions Indication:Well woman exam (Renamed from Encounter for well woman exam) Start:08-Jun-2018 Instruction Type:Provider Instructions for Treatment How to access health informa tion online Indication:Non-STEMI (non-ST elevated myocardial infarction) Start:15-Mar-2018 Instruction Type:Patient Education How to access health informa tion online - Detail Indication:Non-STEMI (non-ST elevated myocardial infarction) Start:15-Mar-2018 Instruction Type:Patient Education Patient Instructions Indication:Non-STEMI (non-ST elevated myocardial infarction) Start:15-Mar-2018 Instruction Type:Provider Instructions for Treatment How to access health informa tion online Indication:Diverticulitis Start:08-Feb-2018 Instruction Type:Patient Education How to access health informa tion online - Detail Indication:Diverticulitis Start:08-Feb-2018 Instruction Type:Patient Education Patient Instructions Indication:Diverticulitis Start:08-Feb-2018 Instruction Type:Provider Instructions for Treatment How to access health informa tion online Indication:Well woman exam (Renamed from Encounter for well woman exam) Start:25-May-2017 Instruction Type:Patient Education How to access health informa tion online - Detail Indication:Well woman exam (Renamed from Encounter for well woman exam) Start:25-May-2017 Instruction Type:Patient Education Patient Instructions Indication:Well woman exam (Renamed from Encounter for well woman exam) Start:25-May-2017 Instruction Type:Provider Instructions for Treatment How to access health informa tion online Indication:BMI 24.0-24.9, adult Start:12-Jan-2017 Instruction Type:Patient Education How to access health informa tion online - Detail Indication:BMI 24.0-24.9, adult Start:12-Jan-2017 Instruction Type:Patient Education Patient Instructions Indication:BMI 24.0-24.9, adult Start:12-Jan-2017 Instruction Type:Provider Instructions for Treatment How to access health informa tion online Indication:BMI 26.0-26.9,adult Start:08-Sep-2016 Instruction Type:Patient Education How to access health informa tion online - Detail Indication:BMI 26.0-26.9,adult Start:08-Sep-2016 Instruction Type:Patient Education Patient Instructions Indication:BMI 26.0-26.9,adult Start:08-Sep-2016 Instruction Type:Provider Instructions for Treatment How to access health informa tion online Indication:Well woman exam (Renamed from Encounter for well woman exam) Start:05-May-2016 Instruction Type:Patient Education How to access health informa tion online - Detail Indication:Well woman exam (Renamed from Encounter for well woman exam) Start:05-May-2016 Instruction Type:Patient Education Patient Instructions Indication:Well woman exam (Renamed from Encounter for well woman exam) Start:05-May-2016 Instruction Type:Provider Instructions for Treatment How to access health informa tion online Indication:Acute cystitis without hematuria Start:23-Jul-2015 Instruction Type:Patient Education How to access health informa tion online - Detail Indication:Acute cystitis without hematuria Start:23-Jul-2015 Instruction Type:Patient Education Patient Instructions Indication:Acute cystitis without hematuria Start:23-Jul-2015 Instruction Type:Provider Instructions for Treatment How to access health informa tion online Indication:Thyroid nodule Start:18-Jun-2015 Instruction Type:Patient Education How to access health informa tion online - Detail Indication:Thyroid nodule Start:18-Jun-2015 Instruction Type:Patient Education Patient Instructions Indication:Thyroid nodule Start:18-Jun-2015 Instruction Type:Provider Instructions for Treatment How to access health informa tion online Indication:Well woman exam Start:16-Oct-2014 Instruction Type:Patient Education How to access health informa tion online - Detail Indication:Well woman exam Start:16-Oct-2014 Instruction Type:Patient Education Patient Instructions Indication:Well woman exam Start:16-Oct-2014 Instruction Type:Provider Instructions for Treatment [facility]; [facility] Work Phone: Instructions* Name Dates Details Patient Instructions Indication:Hypercholesteremia Start:19-Apr-2020 Instruction Type:Provider Instructions for Treatment How to Access Health Informa tion Online using Patient Portal and [employer] Apps Indication:Hypercholesteremia Start:19-Apr-2020 Instruction Type:Patient Education How to access health informa tion online Indication:Well woman exam (Renamed from Encounter for well woman exam) Start:15-Dec-2019 Instruction Type:Patient Education How to access health informa tion online - Detail Indication:Well woman exam (Renamed from Encounter for well woman exam) Start:15-Dec-2019 Instruction Type:Patient Education Patient Instructions Indication:Well woman exam (Renamed from Encounter for well woman exam) Start:15-Dec-2019 Instruction Type:Provider Instructions for Treatment How to access health informa tion online Indication:Non-STEMI (non-ST elevated myocardial infarction) Start:28-Mar-2019 Instruction Type:Patient Education How to access health informa tion online - Detail Indication:Non-STEMI (non-ST elevated myocardial infarction) Start:28-Mar-2019 Instruction Type:Patient Education Patient Instructions Indication:Non-STEMI (non-ST elevated myocardial infarction) Start:28-Mar-2019 Instruction Type:Provider Instructions for Treatment How to access health informa tion online Indication:Current nonsmoker (Renamed from Current non-smoker) Start:18-Nov-2018 Instruction Type:Patient Education How to access health informa tion online - Detail Indication:Current nonsmoker (Renamed from Current non-smoker) Start:18-Nov-2018 Instruction Type:Patient Education Patient Instructions Indication:BMI 24.0-24.9, adult Start:18-Nov-2018 Instruction Type:Provider Instructions for Treatment How to access health informa tion online Indication:Non-STEMI (non-ST elevated myocardial infarction) Start:20-Sep-2018 Instruction Type:Patient Education How to access health informa tion online - Detail Indication:Non-STEMI (non-ST elevated myocardial infarction) Start:20-Sep-2018 Instruction Type:Patient Education Patient Instructions Indication:Non-STEMI (non-ST elevated myocardial infarction) Start:20-Sep-2018 Instruction Type:Provider Instructions for Treatment How to access health informa tion online Indication:Well woman exam (Renamed from Encounter for well woman exam) Start:08-Jun-2018 Instruction Type:Patient Education How to access health informa tion online - Detail Indication:Well woman exam (Renamed from Encounter for well woman exam) Start:08-Jun-2018 Instruction Type:Patient Education Patient Instructions Indication:Well woman exam (Renamed from Encounter for well woman exam) Start:08-Jun-2018 Instruction Type:Provider Instructions for Treatment How to access health informa tion online Indication:Non-STEMI (non-ST elevated myocardial infarction) Start:15-Mar-2018 Instruction Type:Patient Education How to access health informa tion online - Detail Indication:Non-STEMI (non-ST elevated myocardial infarction) Start:15-Mar-2018 Instruction Type:Patient Education Patient Instructions Indication:Non-STEMI (non-ST elevated myocardial infarction) Start:15-Mar-2018 Instruction Type:Provider Instructions for Treatment How to access health informa tion online Indication:Diverticulitis Start:08-Feb-2018 Instruction Type:Patient Education How to access health informa tion online - Detail Indication:Diverticulitis Start:08-Feb-2018 Instruction Type:Patient Education Patient Instructions Indication:Diverticulitis Start:08-Feb-2018 Instruction Type:Provider Instructions for Treatment How to access health informa tion online Indication:Well woman exam (Renamed from Encounter for well woman exam) Start:25-May-2017 Instruction Type:Patient Education How to access health informa tion online - Detail Indication:Well woman exam (Renamed from Encounter for well woman exam) Start:25-May-2017 Instruction Type:Patient Education Patient Instructions Indication:Well woman exam (Renamed from Encounter for well woman exam) Start:25-May-2017 Instruction Type:Provider Instructions for Treatment How to access health informa tion online Indication:BMI 24.0-24.9, adult Start:12-Jan-2017 Instruction Type:Patient Education How to access health informa tion online - Detail Indication:BMI 24.0-24.9, adult Start:12-Jan-2017 Instruction Type:Patient Education Patient Instructions Indication:BMI 24.0-24.9, adult Start:12-Jan-2017 Instruction Type:Provider Instructions for Treatment How to access health informa tion online Indication:BMI 26.0-26.9,adult Start:08-Sep-2016 Instruction Type:Patient Education How to access health informa tion online - Detail Indication:BMI 26.0-26.9,adult Start:08-Sep-2016 Instruction Type:Patient Education Patient Instructions Indication:BMI 26.0-26.9,adult Start:08-Sep-2016 Instruction Type:Provider Instructions for Treatment How to access health informa tion online Indication:Well woman exam (Renamed from Encounter for well woman exam) Start:05-May-2016 Instruction Type:Patient Education How to access health informa tion online - Detail Indication:Well woman exam (Renamed from Encounter for well woman exam) Start:05-May-2016 Instruction Type:Patient Education Patient Instructions Indication:Well woman exam (Renamed from Encounter for well woman exam) Start:05-May-2016 Instruction Type:Provider Instructions for Treatment How to access health informa tion online Indication:Acute cystitis without hematuria Start:23-Jul-2015 Instruction Type:Patient Education How to access health informa tion online - Detail Indication:Acute cystitis without hematuria Start:23-Jul-2015 Instruction Type:Patient Education Patient Instructions Indication:Acute cystitis without hematuria Start:23-Jul-2015 Instruction Type:Provider Instructions for Treatment How to access health informa tion online Indication:Thyroid nodule Start:18-Jun-2015 Instruction Type:Patient Education How to access health informa tion online - Detail Indication:Thyroid nodule Start:18-Jun-2015 Instruction Type:Patient Education Patient Instructions Indication:Thyroid nodule Start:18-Jun-2015 Instruction Type:Provider Instructions for Treatment How to access health informa tion online Indication:Well woman exam Start:16-Oct-2014 Instruction Type:Patient Education How to access health informa tion online - Detail Indication:Well woman exam Start:16-Oct-2014 Instruction Type:Patient Education Patient Instructions Indication:Well woman exam Start:16-Oct-2014 Instruction Type:Provider Instructions for Treatment [facility]; [facility] Work Phone: Instructions* Name Dates Details Patient Instructions Indication:Stress reaction (Renamed from Acute reaction to stress) Start:27-Dec-2020 Instruction Type:Provider Instructions for Treatment How to Access Health Informa tion Online using Patient Portal and [employer] Apps Indication:Stress reaction (Renamed from Acute reaction to stress) Start:27-Dec-2020 Instruction Type:Patient Education Patient Instructions Indication:BMI 27.0-27.9,adult Start:25-Oct-2020 Instruction Type:Provider Instructions for Treatment How to Access Health Informa tion Online using Patient Portal and [employer] Apps Indication:BMI 27.0-27.9,adult Start:25-Oct-2020 Instruction Type:Patient Education Patient Instructions Indication:Hypercholesteremia Start:19-Apr-2020 Instruction Type:Provider Instructions for Treatment How to Access Health Informa tion Online using Patient Portal and [employer] Apps Indication:Hypercholesteremia Start:19-Apr-2020 Instruction Type:Patient Education How to access health informa tion online Indication:Well woman exam (Renamed from Encounter for well woman exam) Start:15-Dec-2019 Instruction Type:Patient Education How to access health informa tion online - Detail Indication:Well woman exam (Renamed from Encounter for well woman exam) Start:15-Dec-2019 Instruction Type:Patient Education Patient Instructions Indication:Well woman exam (Renamed from Encounter for well woman exam) Start:15-Dec-2019 Instruction Type:Provider Instructions for Treatment How to access health informa tion online Indication:Non-STEMI (non-ST elevated myocardial infarction) Start:28-Mar-2019 Instruction Type:Patient Education How to access health informa tion online - Detail Indication:Non-STEMI (non-ST elevated myocardial infarction) Start:28-Mar-2019 Instruction Type:Patient Education Patient Instructions Indication:Non-STEMI (non-ST elevated myocardial infarction) Start:28-Mar-2019 Instruction Type:Provider Instructions for Treatment How to access health informa tion online Indication:Current nonsmoker (Renamed from Current non-smoker) Start:18-Nov-2018 Instruction Type:Patient Education How to access health informa tion online - Detail Indication:Current nonsmoker (Renamed from Current non-smoker) Start:18-Nov-2018 Instruction Type:Patient Education Patient Instructions Indication:BMI 24.0-24.9, adult Start:18-Nov-2018 Instruction Type:Provider Instructions for Treatment How to access health informa tion online Indication:Non-STEMI (non-ST elevated myocardial infarction) Start:20-Sep-2018 Instruction Type:Patient Education How to access health informa tion online - Detail Indication:Non-STEMI (non-ST elevated myocardial infarction) Start:20-Sep-2018 Instruction Type:Patient Education Patient Instructions Indication:Non-STEMI (non-ST elevated myocardial infarction) Start:20-Sep-2018 Instruction Type:Provider Instructions for Treatment How to access health informa tion online Indication:Well woman exam (Renamed from Encounter for well woman exam) Start:08-Jun-2018 Instruction Type:Patient Education How to access health informa tion online - Detail Indication:Well woman exam (Renamed from Encounter for well woman exam) Start:08-Jun-2018 Instruction Type:Patient Education Patient Instructions Indication:Well woman exam (Renamed from Encounter for well woman exam) Start:08-Jun-2018 Instruction Type:Provider Instructions for Treatment How to access health informa tion online Indication:Non-STEMI (non-ST elevated myocardial infarction) Start:15-Mar-2018 Instruction Type:Patient Education How to access health informa tion online - Detail Indication:Non-STEMI (non-ST elevated myocardial infarction) Start:15-Mar-2018 Instruction Type:Patient Education Patient Instructions Indication:Non-STEMI (non-ST elevated myocardial infarction) Start:15-Mar-2018 Instruction Type:Provider Instructions for Treatment How to access health informa tion online Indication:Diverticulitis Start:08-Feb-2018 Instruction Type:Patient Education How to access health informa tion online - Detail Indication:Diverticulitis Start:08-Feb-2018 Instruction Type:Patient Education Patient Instructions Indication:Diverticulitis Start:08-Feb-2018 Instruction Type:Provider Instructions for Treatment How to access health informa tion online Indication:Well woman exam (Renamed from Encounter for well woman exam) Start:25-May-2017 Instruction Type:Patient Education How to access health informa tion online - Detail Indication:Well woman exam (Renamed from Encounter for well woman exam) Start:25-May-2017 Instruction Type:Patient Education Patient Instructions Indication:Well woman exam (Renamed from Encounter for well woman exam) Start:25-May-2017 Instruction Type:Provider Instructions for Treatment How to access health informa tion online Indication:BMI 24.0-24.9, adult Start:12-Jan-2017 Instruction Type:Patient Education How to access health informa tion online - Detail Indication:BMI 24.0-24.9, adult Start:12-Jan-2017 Instruction Type:Patient Education Patient Instructions Indication:BMI 24.0-24.9, adult Start:12-Jan-2017 Instruction Type:Provider Instructions for Treatment How to access health informa tion online Indication:BMI 26.0-26.9,adult Start:08-Sep-2016 Instruction Type:Patient Education How to access health informa tion online - Detail Indication:BMI 26.0-26.9,adult Start:08-Sep-2016 Instruction Type:Patient Education Patient Instructions Indication:BMI 26.0-26.9,adult Start:08-Sep-2016 Instruction Type:Provider Instructions for Treatment How to access health informa tion online Indication:Well woman exam (Renamed from Encounter for well woman exam) Start:05-May-2016 Instruction Type:Patient Education How to access health informa tion online - Detail Indication:Well woman exam (Renamed from Encounter for well woman exam) Start:05-May-2016 Instruction Type:Patient Education Patient Instructions Indication:Well woman exam (Renamed from Encounter for well woman exam) Start:05-May-2016 Instruction Type:Provider Instructions for Treatment How to access health informa tion online Indication:Acute cystitis without hematuria Start:23-Jul-2015 Instruction Type:Patient Education How to access health informa tion online - Detail Indication:Acute cystitis without hematuria Start:23-Jul-2015 Instruction Type:Patient Education Patient Instructions Indication:Acute cystitis without hematuria Start:23-Jul-2015 Instruction Type:Provider Instructions for Treatment How to access health informa tion online Indication:Thyroid nodule Start:18-Jun-2015 Instruction Type:Patient Education How to access health informa tion online - Detail Indication:Thyroid nodule Start:18-Jun-2015 Instruction Type:Patient Education Patient Instructions Indication:Thyroid nodule Start:18-Jun-2015 Instruction Type:Provider Instructions for Treatment How to access health informa tion online Indication:Well woman exam Start:16-Oct-2014 Instruction Type:Patient Education How to access health informa tion online - Detail Indication:Well woman exam Start:16-Oct-2014 Instruction Type:Patient Education Patient Instructions Indication:Well woman exam Start:16-Oct-2014 Instruction Type:Provider Instructions for Treatment [facility]; [facility] Work Phone: Instructions* Name Dates Details Patient Instructions Indication:Stress reaction (Renamed from Acute reaction to stress) Start:27-Dec-2020 Instruction Type:Provider Instructions for Treatment How to Access Health Informa tion Online using Patient Portal and [employer] Apps Indication:Stress reaction (Renamed from Acute reaction to stress) Start:27-Dec-2020 Instruction Type:Patient Education Patient Instructions Indication:BMI 27.0-27.9,adult Start:25-Oct-2020 Instruction Type:Provider Instructions for Treatment How to Access Health Informa tion Online using Patient Portal and [employer] Apps Indication:BMI 27.0-27.9,adult Start:25-Oct-2020 Instruction Type:Patient Education Patient Instructions Indication:Hypercholesteremia Start:19-Apr-2020 Instruction Type:Provider Instructions for Treatment How to Access Health Informa tion Online using Patient Portal and [employer] Apps Indication:Hypercholesteremia Start:19-Apr-2020 Instruction Type:Patient Education How to access health informa tion online Indication:Well woman exam (Renamed from Encounter for well woman exam) Start:15-Dec-2019 Instruction Type:Patient Education How to access health informa tion online - Detail Indication:Well woman exam (Renamed from Encounter for well woman exam) Start:15-Dec-2019 Instruction Type:Patient Education Patient Instructions Indication:Well woman exam (Renamed from Encounter for well woman exam) Start:15-Dec-2019 Instruction Type:Provider Instructions for Treatment How to access health informa tion online Indication:Non-STEMI (non-ST elevated myocardial infarction) Start:28-Mar-2019 Instruction Type:Patient Education How to access health informa tion online - Detail Indication:Non-STEMI (non-ST elevated myocardial infarction) Start:28-Mar-2019 Instruction Type:Patient Education Patient Instructions Indication:Non-STEMI (non-ST elevated myocardial infarction) Start:28-Mar-2019 Instruction Type:Provider Instructions for Treatment How to access health informa tion online Indication:Current nonsmoker (Renamed from Current non-smoker) Start:18-Nov-2018 Instruction Type:Patient Education How to access health informa tion online - Detail Indication:Current nonsmoker (Renamed from Current non-smoker) Start:18-Nov-2018 Instruction Type:Patient Education Patient Instructions Indication:BMI 24.0-24.9, adult Start:18-Nov-2018 Instruction Type:Provider Instructions for Treatment How to access health informa tion online Indication:Non-STEMI (non-ST elevated myocardial infarction) Start:20-Sep-2018 Instruction Type:Patient Education How to access health informa tion online - Detail Indication:Non-STEMI (non-ST elevated myocardial infarction) Start:20-Sep-2018 Instruction Type:Patient Education Patient Instructions Indication:Non-STEMI (non-ST elevated myocardial infarction) Start:20-Sep-2018 Instruction Type:Provider Instructions for Treatment How to access health informa tion online Indication:Well woman exam (Renamed from Encounter for well woman exam) Start:08-Jun-2018 Instruction Type:Patient Education How to access health informa tion online - Detail Indication:Well woman exam (Renamed from Encounter for well woman exam) Start:08-Jun-2018 Instruction Type:Patient Education Patient Instructions Indication:Well woman exam (Renamed from Encounter for well woman exam) Start:08-Jun-2018 Instruction Type:Provider Instructions for Treatment How to access health informa tion online Indication:Non-STEMI (non-ST elevated myocardial infarction) Start:15-Mar-2018 Instruction Type:Patient Education How to access health informa tion online - Detail Indication:Non-STEMI (non-ST elevated myocardial infarction) Start:15-Mar-2018 Instruction Type:Patient Education Patient Instructions Indication:Non-STEMI (non-ST elevated myocardial infarction) Start:15-Mar-2018 Instruction Type:Provider Instructions for Treatment How to access health informa tion online Indication:Diverticulitis Start:08-Feb-2018 Instruction Type:Patient Education How to access health informa tion online - Detail Indication:Diverticulitis Start:08-Feb-2018 Instruction Type:Patient Education Patient Instructions Indication:Diverticulitis Start:08-Feb-2018 Instruction Type:Provider Instructions for Treatment How to access health informa tion online Indication:Well woman exam (Renamed from Encounter for well woman exam) Start:25-May-2017 Instruction Type:Patient Education How to access health informa tion online - Detail Indication:Well woman exam (Renamed from Encounter for well woman exam) Start:25-May-2017 Instruction Type:Patient Education Patient Instructions Indication:Well woman exam (Renamed from Encounter for well woman exam) Start:25-May-2017 Instruction Type:Provider Instructions for Treatment How to access health informa tion online Indication:BMI 24.0-24.9, adult Start:12-Jan-2017 Instruction Type:Patient Education How to access health informa tion online - Detail Indication:BMI 24.0-24.9, adult Start:12-Jan-2017 Instruction Type:Patient Education Patient Instructions Indication:BMI 24.0-24.9, adult Start:12-Jan-2017 Instruction Type:Provider Instructions for Treatment How to access health informa tion online Indication:BMI 26.0-26.9,adult Start:08-Sep-2016 Instruction Type:Patient Education How to access health informa tion online - Detail Indication:BMI 26.0-26.9,adult Start:08-Sep-2016 Instruction Type:Patient Education Patient Instructions Indication:BMI 26.0-26.9,adult Start:08-Sep-2016 Instruction Type:Provider Instructions for Treatment How to access health informa tion online Indication:Well woman exam (Renamed from Encounter for well woman exam) Start:05-May-2016 Instruction Type:Patient Education How to access health informa tion online - Detail Indication:Well woman exam (Renamed from Encounter for well woman exam) Start:05-May-2016 Instruction Type:Patient Education Patient Instructions Indication:Well woman exam (Renamed from Encounter for well woman exam) Start:05-May-2016 Instruction Type:Provider Instructions for Treatment How to access health informa tion online Indication:Acute cystitis without hematuria Start:23-Jul-2015 Instruction Type:Patient Education How to access health informa tion online - Detail Indication:Acute cystitis without hematuria Start:23-Jul-2015 Instruction Type:Patient Education Patient Instructions Indication:Acute cystitis without hematuria Start:23-Jul-2015 Instruction Type:Provider Instructions for Treatment How to access health informa tion online Indication:Thyroid nodule Start:18-Jun-2015 Instruction Type:Patient Education How to access health informa tion online - Detail Indication:Thyroid nodule Start:18-Jun-2015 Instruction Type:Patient Education Patient Instructions Indication:Thyroid nodule Start:18-Jun-2015 Instruction Type:Provider Instructions for Treatment How to access health informa tion online Indication:Well woman exam Start:16-Oct-2014 Instruction Type:Patient Education How to access health informa tion online - Detail Indication:Well woman exam Start:16-Oct-2014 Instruction Type:Patient Education Patient Instructions Indication:Well woman exam Start:16-Oct-2014 Instruction Type:Provider Instructions for Treatment [facility]; [facility] Work Phone: Instructions* Name Dates Details Patient Instructions Indication:Stress reaction (Renamed from Acute reaction to stress) Start:27-Dec-2020 Instruction Type:Provider Instructions for Treatment How to Access Health Informa tion Online using Patient Portal and [employer] Apps Indication:Stress reaction (Renamed from Acute reaction to stress) Start:27-Dec-2020 Instruction Type:Patient Education Patient Instructions Indication:BMI 27.0-27.9,adult Start:25-Oct-2020 Instruction Type:Provider Instructions for Treatment How to Access Health Informa tion Online using Patient Portal and [employer]rd [employer] Apps Indication:BMI 27.0-27.9,adult Start:25-Oct-2020 Instruction Type:Patient Education Patient Instructions Indication:Hypercholesteremia Start:19-Apr-2020 Instruction Type:Provider Instructions for Treatment How to Access Health Informa tion Online using Patient Portal and [employer] Apps Indication:Hypercholesteremia Start:19-Apr-2020 Instruction Type:Patient Education How to access health informa tion online Indication:Well woman exam (Renamed from Encounter for well woman exam) Start:15-Dec-2019 Instruction Type:Patient Education How to access health informa tion online - Detail Indication:Well woman exam (Renamed from Encounter for well woman exam) Start:15-Dec-2019 Instruction Type:Patient Education Patient Instructions Indication:Well woman exam (Renamed from Encounter for well woman exam) Start:15-Dec-2019 Instruction Type:Provider Instructions for Treatment How to access health informa tion online Indication:Non-STEMI (non-ST elevated myocardial infarction) Start:28-Mar-2019 Instruction Type:Patient Education How to access health informa tion online - Detail Indication:Non-STEMI (non-ST elevated myocardial infarction) Start:28-Mar-2019 Instruction Type:Patient Education Patient Instructions Indication:Non-STEMI (non-ST elevated myocardial infarction) Start:28-Mar-2019 Instruction Type:Provider Instructions for Treatment How to access health informa tion online Indication:Current nonsmoker (Renamed from Current non-smoker) Start:18-Nov-2018 Instruction Type:Patient Education How to access health informa tion online - Detail Indication:Current nonsmoker (Renamed from Current non-smoker) Start:18-Nov-2018 Instruction Type:Patient Education Patient Instructions Indication:BMI 24.0-24.9, adult Start:18-Nov-2018 Instruction Type:Provider Instructions for Treatment How to access health informa tion online Indication:Non-STEMI (non-ST elevated myocardial infarction) Start:20-Sep-2018 Instruction Type:Patient Education How to access health informa tion online - Detail Indication:Non-STEMI (non-ST elevated myocardial infarction) Start:20-Sep-2018 Instruction Type:Patient Education Patient Instructions Indication:Non-STEMI (non-ST elevated myocardial infarction) Start:20-Sep-2018 Instruction Type:Provider Instructions for Treatment How to access health informa tion online Indication:Well woman exam (Renamed from Encounter for well woman exam) Start:08-Jun-2018 Instruction Type:Patient Education How to access health informa tion online - Detail Indication:Well woman exam (Renamed from Encounter for well woman exam) Start:08-Jun-2018 Instruction Type:Patient Education Patient Instructions Indication:Well woman exam (Renamed from Encounter for well woman exam) Start:08-Jun-2018 Instruction Type:Provider Instructions for Treatment How to access health informa tion online Indication:Non-STEMI (non-ST elevated myocardial infarction) Start:15-Mar-2018 Instruction Type:Patient Education How to access health informa tion online - Detail Indication:Non-STEMI (non-ST elevated myocardial infarction) Start:15-Mar-2018 Instruction Type:Patient Education Patient Instructions Indication:Non-STEMI (non-ST elevated myocardial infarction) Start:15-Mar-2018 Instruction Type:Provider Instructions for Treatment How to access health informa tion online Indication:Diverticulitis Start:08-Feb-2018 Instruction Type:Patient Education How to access health informa tion online - Detail Indication:Diverticulitis Start:08-Feb-2018 Instruction Type:Patient Education Patient Instructions Indication:Diverticulitis Start:08-Feb-2018 Instruction Type:Provider Instructions for Treatment How to access health informa tion online Indication:Well woman exam (Renamed from Encounter for well woman exam) Start:25-May-2017 Instruction Type:Patient Education How to access health informa tion online - Detail Indication:Well woman exam (Renamed from Encounter for well woman exam) Start:25-May-2017 Instruction Type:Patient Education Patient Instructions Indication:Well woman exam (Renamed from Encounter for well woman exam) Start:25-May-2017 Instruction Type:Provider Instructions for Treatment How to access health informa tion online Indication:BMI 24.0-24.9, adult Start:12-Jan-2017 Instruction Type:Patient Education How to access health informa tion online - Detail Indication:BMI 24.0-24.9, adult Start:12-Jan-2017 Instruction Type:Patient Education Patient Instructions Indication:BMI 24.0-24.9, adult Start:12-Jan-2017 Instruction Type:Provider Instructions for Treatment How to access health informa tion online Indication:BMI 26.0-26.9,adult Start:08-Sep-2016 Instruction Type:Patient Education How to access health informa tion online - Detail Indication:BMI 26.0-26.9,adult Start:08-Sep-2016 Instruction Type:Patient Education Patient Instructions Indication:BMI 26.0-26.9,adult Start:08-Sep-2016 Instruction Type:Provider Instructions for Treatment How to access health informa tion online Indication:Well woman exam (Renamed from Encounter for well woman exam) Start:05-May-2016 Instruction Type:Patient Education How to access health informa tion online - Detail Indication:Well woman exam (Renamed from Encounter for well woman exam) Start:05-May-2016 Instruction Type:Patient Education Patient Instructions Indication:Well woman exam (Renamed from Encounter for well woman exam) Start:05-May-2016 Instruction Type:Provider Instructions for Treatment How to access health informa tion online Indication:Acute cystitis without hematuria Start:23-Jul-2015 Instruction Type:Patient Education How to access health informa tion online - Detail Indication:Acute cystitis without hematuria Start:23-Jul-2015 Instruction Type:Patient Education Patient Instructions Indication:Acute cystitis without hematuria Start:23-Jul-2015 Instruction Type:Provider Instructions for Treatment How to access health informa tion online Indication:Thyroid nodule Start:18-Jun-2015 Instruction Type:Patient Education How to access health informa tion online - Detail Indication:Thyroid nodule Start:18-Jun-2015 Instruction Type:Patient Education Patient Instructions Indication:Thyroid nodule Start:18-Jun-2015 Instruction Type:Provider Instructions for Treatment How to access health informa tion online Indication:Well woman exam Start:16-Oct-2014 Instruction Type:Patient Education How to access health informa tion online - Detail Indication:Well woman exam Start:16-Oct-2014 Instruction Type:Patient Education Patient Instructions Indication:Well woman exam Start:16-Oct-2014 Instruction Type:Provider Instructions for Treatment [facility]; [facility] Work Phone: Instructions* Name Dates Details Patient Instructions Indication:Stress reaction (Renamed from Acute reaction to stress) Start:27-Dec-2020 Instruction Type:Provider Instructions for Treatment How to Access Health Informa tion Online using Patient Portal and [employer] Apps Indication:Stress reaction (Renamed from Acute reaction to stress) Start:27-Dec-2020 Instruction Type:Patient Education Patient Instructions Indication:BMI 27.0-27.9,adult Start:25-Oct-2020 Instruction Type:Provider Instructions for Treatment How to Access Health Informa tion Online using Patient Portal and [employer] Apps Indication:BMI 27.0-27.9,adult Start:25-Oct-2020 Instruction Type:Patient Education Patient Instructions Indication:Hypercholesteremia Start:19-Apr-2020 Instruction Type:Provider Instructions for Treatment How to Access Health Informa tion Online using Patient Portal and [employer] Apps Indication:Hypercholesteremia Start:19-Apr-2020 Instruction Type:Patient Education How to access health informa tion online Indication:Well woman exam (Renamed from Encounter for well woman exam) Start:15-Dec-2019 Instruction Type:Patient Education How to access health informa tion online - Detail Indication:Well woman exam (Renamed from Encounter for well woman exam) Start:15-Dec-2019 Instruction Type:Patient Education Patient Instructions Indication:Well woman exam (Renamed from Encounter for well woman exam) Start:15-Dec-2019 Instruction Type:Provider Instructions for Treatment How to access health informa tion online Indication:Non-STEMI (non-ST elevated myocardial infarction) Start:28-Mar-2019 Instruction Type:Patient Education How to access health informa tion online - Detail Indication:Non-STEMI (non-ST elevated myocardial infarction) Start:28-Mar-2019 Instruction Type:Patient Education Patient Instructions Indication:Non-STEMI (non-ST elevated myocardial infarction) Start:28-Mar-2019 Instruction Type:Provider Instructions for Treatment How to access health informa tion online Indication:Current nonsmoker (Renamed from Current non-smoker) Start:18-Nov-2018 Instruction Type:Patient Education How to access health informa tion online - Detail Indication:Current nonsmoker (Renamed from Current non-smoker) Start:18-Nov-2018 Instruction Type:Patient Education Patient Instructions Indication:BMI 24.0-24.9, adult Start:18-Nov-2018 Instruction Type:Provider Instructions for Treatment How to access health informa tion online Indication:Non-STEMI (non-ST elevated myocardial infarction) Start:20-Sep-2018 Instruction Type:Patient Education How to access health informa tion online - Detail Indication:Non-STEMI (non-ST elevated myocardial infarction) Start:20-Sep-2018 Instruction Type:Patient Education Patient Instructions Indication:Non-STEMI (non-ST elevated myocardial infarction) Start:20-Sep-2018 Instruction Type:Provider Instructions for Treatment How to access health informa tion online Indication:Well woman exam (Renamed from Encounter for well woman exam) Start:08-Jun-2018 Instruction Type:Patient Education How to access health informa tion online - Detail Indication:Well woman exam (Renamed from Encounter for well woman exam) Start:08-Jun-2018 Instruction Type:Patient Education Patient Instructions Indication:Well woman exam (Renamed from Encounter for well woman exam) Start:08-Jun-2018 Instruction Type:Provider Instructions for Treatment How to access health informa tion online Indication:Non-STEMI (non-ST elevated myocardial infarction) Start:15-Mar-2018 Instruction Type:Patient Education How to access health informa tion online - Detail Indication:Non-STEMI (non-ST elevated myocardial infarction) Start:15-Mar-2018 Instruction Type:Patient Education Patient Instructions Indication:Non-STEMI (non-ST elevated myocardial infarction) Start:15-Mar-2018 Instruction Type:Provider Instructions for Treatment How to access health informa tion online Indication:Diverticulitis Start:08-Feb-2018 Instruction Type:Patient Education How to access health informa tion online - Detail Indication:Diverticulitis Start:08-Feb-2018 Instruction Type:Patient Education Patient Instructions Indication:Diverticulitis Start:08-Feb-2018 Instruction Type:Provider Instructions for Treatment How to access health informa tion online Indication:Well woman exam (Renamed from Encounter for well woman exam) Start:25-May-2017 Instruction Type:Patient Education How to access health informa tion online - Detail Indication:Well woman exam (Renamed from Encounter for well woman exam) Start:25-May-2017 Instruction Type:Patient Education Patient Instructions Indication:Well woman exam (Renamed from Encounter for well woman exam) Start:25-May-2017 Instruction Type:Provider Instructions for Treatment How to access health informa tion online Indication:BMI 24.0-24.9, adult Start:12-Jan-2017 Instruction Type:Patient Education How to access health informa tion online - Detail Indication:BMI 24.0-24.9, adult Start:12-Jan-2017 Instruction Type:Patient Education Patient Instructions Indication:BMI 24.0-24.9, adult Start:12-Jan-2017 Instruction Type:Provider Instructions for Treatment How to access health informa tion online Indication:BMI 26.0-26.9,adult Start:08-Sep-2016 Instruction Type:Patient Education How to access health informa tion online - Detail Indication:BMI 26.0-26.9,adult Start:08-Sep-2016 Instruction Type:Patient Education Patient Instructions Indication:BMI 26.0-26.9,adult Start:08-Sep-2016 Instruction Type:Provider Instructions for Treatment How to access health informa tion online Indication:Well woman exam (Renamed from Encounter for well woman exam) Start:05-May-2016 Instruction Type:Patient Education How to access health informa tion online - Detail Indication:Well woman exam (Renamed from Encounter for well woman exam) Start:05-May-2016 Instruction Type:Patient Education Patient Instructions Indication:Well woman exam (Renamed from Encounter for well woman exam) Start:05-May-2016 Instruction Type:Provider Instructions for Treatment How to access health informa tion online Indication:Acute cystitis without hematuria Start:23-Jul-2015 Instruction Type:Patient Education How to access health informa tion online - Detail Indication:Acute cystitis without hematuria Start:23-Jul-2015 Instruction Type:Patient Education Patient Instructions Indication:Acute cystitis without hematuria Start:23-Jul-2015 Instruction Type:Provider Instructions for Treatment How to access health informa tion online Indication:Thyroid nodule Start:18-Jun-2015 Instruction Type:Patient Education How to access health informa tion online - Detail Indication:Thyroid nodule Start:18-Jun-2015 Instruction Type:Patient Education Patient Instructions Indication:Thyroid nodule Start:18-Jun-2015 Instruction Type:Provider Instructions for Treatment How to access health informa tion online Indication:Well woman exam Start:16-Oct-2014 Instruction Type:Patient Education How to access health informa tion online - Detail Indication:Well woman exam Start:16-Oct-2014 Instruction Type:Patient Education Patient Instructions Indication:Well woman exam Start:16-Oct-2014 Instruction Type:Provider Instructions for Treatment [facility]; [facility] Work Phone: Instructions* Name Dates Details Patient Instructions Indication:Anxiety Start:05-Sep-2021 Instruction Type:Provider Instructions for Treatment How to Access Health Informa tion Online using Patient Portal and [employer]rd [employer] Apps Indication:Anxiety Start:05-Sep-2021 Instruction Type:Patient Education Patient Instructions Indication:Stress reaction (Renamed from Acute reaction to stress) Start:27-Dec-2020 Instruction Type:Provider Instructions for Treatment How to Access Health Informa tion Online using Patient Portal and [employer]rd [employer] Apps Indication:Stress reaction (Renamed from Acute reaction to stress) Start:27-Dec-2020 Instruction Type:Patient Education Patient Instructions Indication:BMI 27.0-27.9,adult Start:25-Oct-2020 Instruction Type:Provider Instructions for Treatment How to Access Health Informa tion Online using Patient Portal and [employer]rd [employer] Apps Indication:BMI 27.0-27.9,adult Start:25-Oct-2020 Instruction Type:Patient Education Patient Instructions Indication:Hypercholesteremia Start:19-Apr-2020 Instruction Type:Provider Instructions for Treatment How to Access Health Informa tion Online using Patient Portal and [employer]rd [employer] Apps Indication:Hypercholesteremia Start:19-Apr-2020 Instruction Type:Patient Education How to access health informa tion online Indication:Well woman exam (Renamed from Encounter for well woman exam) Start:15-Dec-2019 Instruction Type:Patient Education How to access health informa tion online - Detail Indication:Well woman exam (Renamed from Encounter for well woman exam) Start:15-Dec-2019 Instruction Type:Patient Education Patient Instructions Indication:Well woman exam (Renamed from Encounter for well woman exam) Start:15-Dec-2019 Instruction Type:Provider Instructions for Treatment How to access health informa tion online Indication:Non-STEMI (non-ST elevated myocardial infarction) Start:28-Mar-2019 Instruction Type:Patient Education How to access health informa tion online - Detail Indication:Non-STEMI (non-ST elevated myocardial infarction) Start:28-Mar-2019 Instruction Type:Patient Education Patient Instructions Indication:Non-STEMI (non-ST elevated myocardial infarction) Start:28-Mar-2019 Instruction Type:Provider Instructions for Treatment How to access health informa tion online Indication:Current nonsmoker (Renamed from Current non-smoker) Start:18-Nov-2018 Instruction Type:Patient Education How to access health informa tion online - Detail Indication:Current nonsmoker (Renamed from Current non-smoker) Start:18-Nov-2018 Instruction Type:Patient Education Patient Instructions Indication:BMI 24.0-24.9, adult Start:18-Nov-2018 Instruction Type:Provider Instructions for Treatment How to access health informa tion online Indication:Non-STEMI (non-ST elevated myocardial infarction) Start:20-Sep-2018 Instruction Type:Patient Education How to access health informa tion online - Detail Indication:Non-STEMI (non-ST elevated myocardial infarction) Start:20-Sep-2018 Instruction Type:Patient Education Patient Instructions Indication:Non-STEMI (non-ST elevated myocardial infarction) Start:20-Sep-2018 Instruction Type:Provider Instructions for Treatment How to access health informa tion online Indication:Well woman exam (Renamed from Encounter for well woman exam) Start:08-Jun-2018 Instruction Type:Patient Education How to access health informa tion online - Detail Indication:Well woman exam (Renamed from Encounter for well woman exam) Start:08-Jun-2018 Instruction Type:Patient Education Patient Instructions Indication:Well woman exam (Renamed from Encounter for well woman exam) Start:08-Jun-2018 Instruction Type:Provider Instructions for Treatment How to access health informa tion online Indication:Non-STEMI (non-ST elevated myocardial infarction) Start:15-Mar-2018 Instruction Type:Patient Education How to access health informa tion online - Detail Indication:Non-STEMI (non-ST elevated myocardial infarction) Start:15-Mar-2018 Instruction Type:Patient Education Patient Instructions Indication:Non-STEMI (non-ST elevated myocardial infarction) Start:15-Mar-2018 Instruction Type:Provider Instructions for Treatment How to access health informa tion online Indication:Diverticulitis Start:08-Feb-2018 Instruction Type:Patient Education How to access health informa tion online - Detail Indication:Diverticulitis Start:08-Feb-2018 Instruction Type:Patient Education Patient Instructions Indication:Diverticulitis Start:08-Feb-2018 Instruction Type:Provider Instructions for Treatment How to access health informa tion online Indication:Well woman exam (Renamed from Encounter for well woman exam) Start:25-May-2017 Instruction Type:Patient Education How to access health informa tion online - Detail Indication:Well woman exam (Renamed from Encounter for well woman exam) Start:25-May-2017 Instruction Type:Patient Education Patient Instructions Indication:Well woman exam (Renamed from Encounter for well woman exam) Start:25-May-2017 Instruction Type:Provider Instructions for Treatment How to access health informa tion online Indication:BMI 24.0-24.9, adult Start:12-Jan-2017 Instruction Type:Patient Education How to access health informa tion online - Detail Indication:BMI 24.0-24.9, adult Start:12-Jan-2017 Instruction Type:Patient Education Patient Instructions Indication:BMI 24.0-24.9, adult Start:12-Jan-2017 Instruction Type:Provider Instructions for Treatment How to access health informa tion online Indication:BMI 26.0-26.9,adult Start:08-Sep-2016 Instruction Type:Patient Education How to access health informa tion online - Detail Indication:BMI 26.0-26.9,adult Start:08-Sep-2016 Instruction Type:Patient Education Patient Instructions Indication:BMI 26.0-26.9,adult Start:08-Sep-2016 Instruction Type:Provider Instructions for Treatment How to access health informa tion online Indication:Well woman exam (Renamed from Encounter for well woman exam) Start:05-May-2016 Instruction Type:Patient Education How to access health informa tion online - Detail Indication:Well woman exam (Renamed from Encounter for well woman exam) Start:05-May-2016 Instruction Type:Patient Education Patient Instructions Indication:Well woman exam (Renamed from Encounter for well woman exam) Start:05-May-2016 Instruction Type:Provider Instructions for Treatment How to access health informa tion online Indication:Acute cystitis without hematuria Start:23-Jul-2015 Instruction Type:Patient Education How to access health informa tion online - Detail Indication:Acute cystitis without hematuria Start:23-Jul-2015 Instruction Type:Patient Education Patient Instructions Indication:Acute cystitis without hematuria Start:23-Jul-2015 Instruction Type:Provider Instructions for Treatment How to access health informa tion online Indication:Thyroid nodule Start:18-Jun-2015 Instruction Type:Patient Education How to access health informa tion online - Detail Indication:Thyroid nodule Start:18-Jun-2015 Instruction Type:Patient Education Patient Instructions Indication:Thyroid nodule Start:18-Jun-2015 Instruction Type:Provider Instructions for Treatment How to access health informa tion online Indication:Well woman exam Start:16-Oct-2014 Instruction Type:Patient Education How to access health informa tion online - Detail Indication:Well woman exam Start:16-Oct-2014 Instruction Type:Patient Education Patient Instructions Indication:Well woman exam Start:16-Oct-2014 Instruction Type:Provider Instructions for Treatment [facility]; [facility] Work Phone: Instructions* Name Dates Details Patient Instructions Indication:Anxiety Start:05-Sep-2021 Instruction Type:Provider Instructions for Treatment How to Access Health Informa tion Online using Patient Portal and [employer]rd [employer] Apps Indication:Anxiety Start:05-Sep-2021 Instruction Type:Patient Education Patient Instructions Indication:Stress reaction (Renamed from Acute reaction to stress) Start:27-Dec-2020 Instruction Type:Provider Instructions for Treatment How to Access Health Informa tion Online using Patient Portal and [employer]rd [employer] Apps Indication:Stress reaction (Renamed from Acute reaction to stress) Start:27-Dec-2020 Instruction Type:Patient Education Patient Instructions Indication:BMI 27.0-27.9,adult Start:25-Oct-2020 Instruction Type:Provider Instructions for Treatment How to Access Health Informa tion Online using Patient Portal and [employer]rd [employer] Apps Indication:BMI 27.0-27.9,adult Start:25-Oct-2020 Instruction Type:Patient Education Patient Instructions Indication:Hypercholesteremia Start:19-Apr-2020 Instruction Type:Provider Instructions for Treatment How to Access Health Informa tion Online using Patient Portal and [employer]rd [employer] Apps Indication:Hypercholesteremia Start:19-Apr-2020 Instruction Type:Patient Education How to access health informa tion online Indication:Well woman exam (Renamed from Encounter for well woman exam) Start:15-Dec-2019 Instruction Type:Patient Education How to access health informa tion online - Detail Indication:Well woman exam (Renamed from Encounter for well woman exam) Start:15-Dec-2019 Instruction Type:Patient Education Patient Instructions Indication:Well woman exam (Renamed from Encounter for well woman exam) Start:15-Dec-2019 Instruction Type:Provider Instructions for Treatment How to access health informa tion online Indication:Non-STEMI (non-ST elevated myocardial infarction) Start:28-Mar-2019 Instruction Type:Patient Education How to access health informa tion online - Detail Indication:Non-STEMI (non-ST elevated myocardial infarction) Start:28-Mar-2019 Instruction Type:Patient Education Patient Instructions Indication:Non-STEMI (non-ST elevated myocardial infarction) Start:28-Mar-2019 Instruction Type:Provider Instructions for Treatment How to access health informa tion online Indication:Current nonsmoker (Renamed from Current non-smoker) Start:18-Nov-2018 Instruction Type:Patient Education How to access health informa tion online - Detail Indication:Current nonsmoker (Renamed from Current non-smoker) Start:18-Nov-2018 Instruction Type:Patient Education Patient Instructions Indication:BMI 24.0-24.9, adult Start:18-Nov-2018 Instruction Type:Provider Instructions for Treatment How to access health informa tion online Indication:Non-STEMI (non-ST elevated myocardial infarction) Start:20-Sep-2018 Instruction Type:Patient Education How to access health informa tion online - Detail Indication:Non-STEMI (non-ST elevated myocardial infarction) Start:20-Sep-2018 Instruction Type:Patient Education Patient Instructions Indication:Non-STEMI (non-ST elevated myocardial infarction) Start:20-Sep-2018 Instruction Type:Provider Instructions for Treatment How to access health informa tion online Indication:Well woman exam (Renamed from Encounter for well woman exam) Start:08-Jun-2018 Instruction Type:Patient Education How to access health informa tion online - Detail Indication:Well woman exam (Renamed from Encounter for well woman exam) Start:08-Jun-2018 Instruction Type:Patient Education Patient Instructions Indication:Well woman exam (Renamed from Encounter for well woman exam) Start:08-Jun-2018 Instruction Type:Provider Instructions for Treatment How to access health informa tion online Indication:Non-STEMI (non-ST elevated myocardial infarction) Start:15-Mar-2018 Instruction Type:Patient Education How to access health informa tion online - Detail Indication:Non-STEMI (non-ST elevated myocardial infarction) Start:15-Mar-2018 Instruction Type:Patient Education Patient Instructions Indication:Non-STEMI (non-ST elevated myocardial infarction) Start:15-Mar-2018 Instruction Type:Provider Instructions for Treatment How to access health informa tion online Indication:Diverticulitis Start:08-Feb-2018 Instruction Type:Patient Education How to access health informa tion online - Detail Indication:Diverticulitis Start:08-Feb-2018 Instruction Type:Patient Education Patient Instructions Indication:Diverticulitis Start:08-Feb-2018 Instruction Type:Provider Instructions for Treatment How to access health informa tion online Indication:Well woman exam (Renamed from Encounter for well woman exam) Start:25-May-2017 Instruction Type:Patient Education How to access health informa tion online - Detail Indication:Well woman exam (Renamed from Encounter for well woman exam) Start:25-May-2017 Instruction Type:Patient Education Patient Instructions Indication:Well woman exam (Renamed from Encounter for well woman exam) Start:25-May-2017 Instruction Type:Provider Instructions for Treatment How to access health informa tion online Indication:BMI 24.0-24.9, adult Start:12-Jan-2017 Instruction Type:Patient Education How to access health informa tion online - Detail Indication:BMI 24.0-24.9, adult Start:12-Jan-2017 Instruction Type:Patient Education Patient Instructions Indication:BMI 24.0-24.9, adult Start:12-Jan-2017 Instruction Type:Provider Instructions for Treatment How to access health informa tion online Indication:BMI 26.0-26.9,adult Start:08-Sep-2016 Instruction Type:Patient Education How to access health informa tion online - Detail Indication:BMI 26.0-26.9,adult Start:08-Sep-2016 Instruction Type:Patient Education Patient Instructions Indication:BMI 26.0-26.9,adult Start:08-Sep-2016 Instruction Type:Provider Instructions for Treatment How to access health informa tion online Indication:Well woman exam (Renamed from Encounter for well woman exam) Start:05-May-2016 Instruction Type:Patient Education How to access health informa tion online - Detail Indication:Well woman exam (Renamed from Encounter for well woman exam) Start:05-May-2016 Instruction Type:Patient Education Patient Instructions Indication:Well woman exam (Renamed from Encounter for well woman exam) Start:05-May-2016 Instruction Type:Provider Instructions for Treatment How to access health informa tion online Indication:Acute cystitis without hematuria Start:23-Jul-2015 Instruction Type:Patient Education How to access health informa tion online - Detail Indication:Acute cystitis without hematuria Start:23-Jul-2015 Instruction Type:Patient Education Patient Instructions Indication:Acute cystitis without hematuria Start:23-Jul-2015 Instruction Type:Provider Instructions for Treatment How to access health informa tion online Indication:Thyroid nodule Start:18-Jun-2015 Instruction Type:Patient Education How to access health informa tion online - Detail Indication:Thyroid nodule Start:18-Jun-2015 Instruction Type:Patient Education Patient Instructions Indication:Thyroid nodule Start:18-Jun-2015 Instruction Type:Provider Instructions for Treatment How to access health informa tion online Indication:Well woman exam Start:16-Oct-2014 Instruction Type:Patient Education How to access health informa tion online - Detail Indication:Well woman exam Start:16-Oct-2014 Instruction Type:Patient Education Patient Instructions Indication:Well woman exam Start:16-Oct-2014 Instruction Type:Provider Instructions for Treatment [facility]; [facility] Work Phone: Instructions* Name Dates Details Patient Instructions Indication:Hypercholesteremia Start:10-Oct-2021 Instruction Type:Provider Instructions for Treatment How to Access Health Informa tion Online using Patient Portal and [employer]rd [employer] Apps Indication:Hypercholesteremia Start:10-Oct-2021 Instruction Type:Patient Education Patient Instructions Indication:Anxiety Start:05-Sep-2021 Instruction Type:Provider Instructions for Treatment How to Access Health Informa tion Online using Patient Portal and [employer]rd [employer] Apps Indication:Anxiety Start:05-Sep-2021 Instruction Type:Patient Education Patient Instructions Indication:Stress reaction (Renamed from Acute reaction to stress) Start:27-Dec-2020 Instruction Type:Provider Instructions for Treatment How to Access Health Informa tion Online using Patient Portal and [employer]rd [employer] Apps Indication:Stress reaction (Renamed from Acute reaction to stress) Start:27-Dec-2020 Instruction Type:Patient Education Patient Instructions Indication:BMI 27.0-27.9,adult Start:25-Oct-2020 Instruction Type:Provider Instructions for Treatment How to Access Health Informa tion Online using Patient Portal and [employer]rd [employer] Apps Indication:BMI 27.0-27.9,adult Start:25-Oct-2020 Instruction Type:Patient Education Patient Instructions Indication:Hypercholesteremia Start:19-Apr-2020 Instruction Type:Provider Instructions for Treatment How to Access Health Informa tion Online using Patient Portal and [employer]rd [employer] Apps Indication:Hypercholesteremia Start:19-Apr-2020 Instruction Type:Patient Education How to access health informa tion online Indication:Well woman exam (Renamed from Encounter for well woman exam) Start:15-Dec-2019 Instruction Type:Patient Education How to access health informa tion online - Detail Indication:Well woman exam (Renamed from Encounter for well woman exam) Start:15-Dec-2019 Instruction Type:Patient Education Patient Instructions Indication:Well woman exam (Renamed from Encounter for well woman exam) Start:15-Dec-2019 Instruction Type:Provider Instructions for Treatment How to access health informa tion online Indication:Non-STEMI (non-ST elevated myocardial infarction) Start:28-Mar-2019 Instruction Type:Patient Education How to access health informa tion online - Detail Indication:Non-STEMI (non-ST elevated myocardial infarction) Start:28-Mar-2019 Instruction Type:Patient Education Patient Instructions Indication:Non-STEMI (non-ST elevated myocardial infarction) Start:28-Mar-2019 Instruction Type:Provider Instructions for Treatment How to access health informa tion online Indication:Current nonsmoker (Renamed from Current non-smoker) Start:18-Nov-2018 Instruction Type:Patient Education How to access health informa tion online - Detail Indication:Current nonsmoker (Renamed from Current non-smoker) Start:18-Nov-2018 Instruction Type:Patient Education Patient Instructions Indication:BMI 24.0-24.9, adult Start:18-Nov-2018 Instruction Type:Provider Instructions for Treatment How to access health informa tion online Indication:Non-STEMI (non-ST elevated myocardial infarction) Start:20-Sep-2018 Instruction Type:Patient Education How to access health informa tion online - Detail Indication:Non-STEMI (non-ST elevated myocardial infarction) Start:20-Sep-2018 Instruction Type:Patient Education Patient Instructions Indication:Non-STEMI (non-ST elevated myocardial infarction) Start:20-Sep-2018 Instruction Type:Provider Instructions for Treatment How to access health informa tion online Indication:Well woman exam (Renamed from Encounter for well woman exam) Start:08-Jun-2018 Instruction Type:Patient Education How to access health informa tion online - Detail Indication:Well woman exam (Renamed from Encounter for well woman exam) Start:08-Jun-2018 Instruction Type:Patient Education Patient Instructions Indication:Well woman exam (Renamed from Encounter for well woman exam) Start:08-Jun-2018 Instruction Type:Provider Instructions for Treatment How to access health informa tion online Indication:Non-STEMI (non-ST elevated myocardial infarction) Start:15-Mar-2018 Instruction Type:Patient Education How to access health informa tion online - Detail Indication:Non-STEMI (non-ST elevated myocardial infarction) Start:15-Mar-2018 Instruction Type:Patient Education Patient Instructions Indication:Non-STEMI (non-ST elevated myocardial infarction) Start:15-Mar-2018 Instruction Type:Provider Instructions for Treatment How to access health informa tion online Indication:Diverticulitis Start:08-Feb-2018 Instruction Type:Patient Education How to access health informa tion online - Detail Indication:Diverticulitis Start:08-Feb-2018 Instruction Type:Patient Education Patient Instructions Indication:Diverticulitis Start:08-Feb-2018 Instruction Type:Provider Instructions for Treatment How to access health informa tion online Indication:Well woman exam (Renamed from Encounter for well woman exam) Start:25-May-2017 Instruction Type:Patient Education How to access health informa tion online - Detail Indication:Well woman exam (Renamed from Encounter for well woman exam) Start:25-May-2017 Instruction Type:Patient Education Patient Instructions Indication:Well woman exam (Renamed from Encounter for well woman exam) Start:25-May-2017 Instruction Type:Provider Instructions for Treatment How to access health informa tion online Indication:BMI 24.0-24.9, adult Start:12-Jan-2017 Instruction Type:Patient Education How to access health informa tion online - Detail Indication:BMI 24.0-24.9, adult Start:12-Jan-2017 Instruction Type:Patient Education Patient Instructions Indication:BMI 24.0-24.9, adult Start:12-Jan-2017 Instruction Type:Provider Instructions for Treatment How to access health informa tion online Indication:BMI 26.0-26.9,adult Start:08-Sep-2016 Instruction Type:Patient Education How to access health informa tion online - Detail Indication:BMI 26.0-26.9,adult Start:08-Sep-2016 Instruction Type:Patient Education Patient Instructions Indication:BMI 26.0-26.9,adult Start:08-Sep-2016 Instruction Type:Provider Instructions for Treatment How to access health informa tion online Indication:Well woman exam (Renamed from Encounter for well woman exam) Start:05-May-2016 Instruction Type:Patient Education How to access health informa tion online - Detail Indication:Well woman exam (Renamed from Encounter for well woman exam) Start:05-May-2016 Instruction Type:Patient Education Patient Instructions Indication:Well woman exam (Renamed from Encounter for well woman exam) Start:05-May-2016 Instruction Type:Provider Instructions for Treatment How to access health informa tion online Indication:Acute cystitis without hematuria Start:23-Jul-2015 Instruction Type:Patient Education How to access health informa tion online - Detail Indication:Acute cystitis without hematuria Start:23-Jul-2015 Instruction Type:Patient Education Patient Instructions Indication:Acute cystitis without hematuria Start:23-Jul-2015 Instruction Type:Provider Instructions for Treatment How to access health informa tion online Indication:Thyroid nodule Start:18-Jun-2015 Instruction Type:Patient Education How to access health informa tion online - Detail Indication:Thyroid nodule Start:18-Jun-2015 Instruction Type:Patient Education Patient Instructions Indication:Thyroid nodule Start:18-Jun-2015 Instruction Type:Provider Instructions for Treatment How to access health informa tion online Indication:Well woman exam Start:16-Oct-2014 Instruction Type:Patient Education How to access health informa tion online - Detail Indication:Well woman exam Start:16-Oct-2014 Instruction Type:Patient Education Patient Instructions Indication:Well woman exam Start:16-Oct-2014 Instruction Type:Provider Instructions for Treatment [facility]; [facility] Work Phone: Instructions* Name Dates Details Patient Instructions Indication:Current nonsmoker (Renamed from Current non-smoker) Start:12-Dec-2021 Instruction Type:Provider Instructions for Treatment How to Access Health Informa tion Online using Patient Portal and [employer] Apps Indication:Current nonsmoker (Renamed from Current non-smoker) Start:12-Dec-2021 Instruction Type:Patient Education Patient Instructions Indication:Hypercholesteremia Start:10-Oct-2021 Instruction Type:Provider Instructions for Treatment How to Access Health Informa tion Online using Patient Portal and [employer] Apps Indication:Hypercholesteremia Start:10-Oct-2021 Instruction Type:Patient Education Patient Instructions Indication:Anxiety Start:05-Sep-2021 Instruction Type:Provider Instructions for Treatment How to Access Health Informa tion Online using Patient Portal and [employer] Apps Indication:Anxiety Start:05-Sep-2021 Instruction Type:Patient Education Patient Instructions Indication:Stress reaction (Renamed from Acute reaction to stress) Start:27-Dec-2020 Instruction Type:Provider Instructions for Treatment How to Access Health Informa tion Online using Patient Portal and [employer] Apps Indication:Stress reaction (Renamed from Acute reaction to stress) Start:27-Dec-2020 Instruction Type:Patient Education Patient Instructions Indication:BMI 27.0-27.9,adult Start:25-Oct-2020 Instruction Type:Provider Instructions for Treatment How to Access Health Informa tion Online using Patient Portal and [employer] Apps Indication:BMI 27.0-27.9,adult Start:25-Oct-2020 Instruction Type:Patient Education Patient Instructions Indication:Hypercholesteremia Start:19-Apr-2020 Instruction Type:Provider Instructions for Treatment How to Access Health Informa tion Online using Patient Portal and [employer] Apps Indication:Hypercholesteremia Start:19-Apr-2020 Instruction Type:Patient Education How to access health informa tion online Indication:Well woman exam (Renamed from Encounter for well woman exam) Start:15-Dec-2019 Instruction Type:Patient Education How to access health informa tion online - Detail Indication:Well woman exam (Renamed from Encounter for well woman exam) Start:15-Dec-2019 Instruction Type:Patient Education Patient Instructions Indication:Well woman exam (Renamed from Encounter for well woman exam) Start:15-Dec-2019 Instruction Type:Provider Instructions for Treatment How to access health informa tion online Indication:Non-STEMI (non-ST elevated myocardial infarction) Start:28-Mar-2019 Instruction Type:Patient Education How to access health informa tion online - Detail Indication:Non-STEMI (non-ST elevated myocardial infarction) Start:28-Mar-2019 Instruction Type:Patient Education Patient Instructions Indication:Non-STEMI (non-ST elevated myocardial infarction) Start:28-Mar-2019 Instruction Type:Provider Instructions for Treatment How to access health informa tion online Indication:Current nonsmoker (Renamed from Current non-smoker) Start:18-Nov-2018 Instruction Type:Patient Education How to access health informa tion online - Detail Indication:Current nonsmoker (Renamed from Current non-smoker) Start:18-Nov-2018 Instruction Type:Patient Education Patient Instructions Indication:BMI 24.0-24.9, adult Start:18-Nov-2018 Instruction Type:Provider Instructions for Treatment How to access health informa tion online Indication:Non-STEMI (non-ST elevated myocardial infarction) Start:20-Sep-2018 Instruction Type:Patient Education How to access health informa tion online - Detail Indication:Non-STEMI (non-ST elevated myocardial infarction) Start:20-Sep-2018 Instruction Type:Patient Education Patient Instructions Indication:Non-STEMI (non-ST elevated myocardial infarction) Start:20-Sep-2018 Instruction Type:Provider Instructions for Treatment How to access health informa tion online Indication:Well woman exam (Renamed from Encounter for well woman exam) Start:08-Jun-2018 Instruction Type:Patient Education How to access health informa tion online - Detail Indication:Well woman exam (Renamed from Encounter for well woman exam) Start:08-Jun-2018 Instruction Type:Patient Education Patient Instructions Indication:Well woman exam (Renamed from Encounter for well woman exam) Start:08-Jun-2018 Instruction Type:Provider Instructions for Treatment How to access health informa tion online Indication:Non-STEMI (non-ST elevated myocardial infarction) Start:15-Mar-2018 Instruction Type:Patient Education How to access health informa tion online - Detail Indication:Non-STEMI (non-ST elevated myocardial infarction) Start:15-Mar-2018 Instruction Type:Patient Education Patient Instructions Indication:Non-STEMI (non-ST elevated myocardial infarction) Start:15-Mar-2018 Instruction Type:Provider Instructions for Treatment How to access health informa tion online Indication:Diverticulitis Start:08-Feb-2018 Instruction Type:Patient Education How to access health informa tion online - Detail Indication:Diverticulitis Start:08-Feb-2018 Instruction Type:Patient Education Patient Instructions Indication:Diverticulitis Start:08-Feb-2018 Instruction Type:Provider Instructions for Treatment How to access health informa tion online Indication:Well woman exam (Renamed from Encounter for well woman exam) Start:25-May-2017 Instruction Type:Patient Education How to access health informa tion online - Detail Indication:Well woman exam (Renamed from Encounter for well woman exam) Start:25-May-2017 Instruction Type:Patient Education Patient Instructions Indication:Well woman exam (Renamed from Encounter for well woman exam) Start:25-May-2017 Instruction Type:Provider Instructions for Treatment How to access health informa tion online Indication:BMI 24.0-24.9, adult Start:12-Jan-2017 Instruction Type:Patient Education How to access health informa tion online - Detail Indication:BMI 24.0-24.9, adult Start:12-Jan-2017 Instruction Type:Patient Education Patient Instructions Indication:BMI 24.0-24.9, adult Start:12-Jan-2017 Instruction Type:Provider Instructions for Treatment How to access health informa tion online Indication:BMI 26.0-26.9,adult Start:08-Sep-2016 Instruction Type:Patient Education How to access health informa tion online - Detail Indication:BMI 26.0-26.9,adult Start:08-Sep-2016 Instruction Type:Patient Education Patient Instructions Indication:BMI 26.0-26.9,adult Start:08-Sep-2016 Instruction Type:Provider Instructions for Treatment How to access health informa tion online Indication:Well woman exam (Renamed from Encounter for well woman exam) Start:05-May-2016 Instruction Type:Patient Education How to access health informa tion online - Detail Indication:Well woman exam (Renamed from Encounter for well woman exam) Start:05-May-2016 Instruction Type:Patient Education Patient Instructions Indication:Well woman exam (Renamed from Encounter for well woman exam) Start:05-May-2016 Instruction Type:Provider Instructions for Treatment How to access health informa tion online Indication:Acute cystitis without hematuria Start:23-Jul-2015 Instruction Type:Patient Education How to access health informa tion online - Detail Indication:Acute cystitis without hematuria Start:23-Jul-2015 Instruction Type:Patient Education Patient Instructions Indication:Acute cystitis without hematuria Start:23-Jul-2015 Instruction Type:Provider Instructions for Treatment How to access health informa tion online Indication:Thyroid nodule Start:18-Jun-2015 Instruction Type:Patient Education How to access health informa tion online - Detail Indication:Thyroid nodule Start:18-Jun-2015 Instruction Type:Patient Education Patient Instructions Indication:Thyroid nodule Start:18-Jun-2015 Instruction Type:Provider Instructions for Treatment How to access health informa tion online Indication:Well woman exam Start:16-Oct-2014 Instruction Type:Patient Education How to access health informa tion online - Detail Indication:Well woman exam Start:16-Oct-2014 Instruction Type:Patient Education Patient Instructions Indication:Well woman exam Start:16-Oct-2014 Instruction Type:Provider Instructions for Treatment [facility]; [facility] Work Phone: Instructions* Name Dates Details Patient Instructions Indication:Current nonsmoker (Renamed from Current non-smoker) Start:12-Dec-2021 Instruction Type:Provider Instructions for Treatment How to Access Health Informa tion Online using Patient Portal and [employer] Apps Indication:Current nonsmoker (Renamed from Current non-smoker) Start:12-Dec-2021 Instruction Type:Patient Education Patient Instructions Indication:Hypercholesteremia Start:10-Oct-2021 Instruction Type:Provider Instructions for Treatment How to Access Health Informa tion Online using Patient Portal and [employer] Apps Indication:Hypercholesteremia Start:10-Oct-2021 Instruction Type:Patient Education Patient Instructions Indication:Anxiety Start:05-Sep-2021 Instruction Type:Provider Instructions for Treatment How to Access Health Informa tion Online using Patient Portal and [employer] Apps Indication:Anxiety Start:05-Sep-2021 Instruction Type:Patient Education Patient Instructions Indication:Stress reaction (Renamed from Acute reaction to stress) Start:27-Dec-2020 Instruction Type:Provider Instructions for Treatment How to Access Health Informa tion Online using Patient Portal and [employer] Apps Indication:Stress reaction (Renamed from Acute reaction to stress) Start:27-Dec-2020 Instruction Type:Patient Education Patient Instructions Indication:BMI 27.0-27.9,adult Start:25-Oct-2020 Instruction Type:Provider Instructions for Treatment How to Access Health Informa tion Online using Patient Portal and [employer] Apps Indication:BMI 27.0-27.9,adult Start:25-Oct-2020 Instruction Type:Patient Education Patient Instructions Indication:Hypercholesteremia Start:19-Apr-2020 Instruction Type:Provider Instructions for Treatment How to Access Health Informa tion Online using Patient Portal and [employer] Apps Indication:Hypercholesteremia Start:19-Apr-2020 Instruction Type:Patient Education How to access health informa tion online Indication:Well woman exam (Renamed from Encounter for well woman exam) Start:15-Dec-2019 Instruction Type:Patient Education How to access health informa tion online - Detail Indication:Well woman exam (Renamed from Encounter for well woman exam) Start:15-Dec-2019 Instruction Type:Patient Education Patient Instructions Indication:Well woman exam (Renamed from Encounter for well woman exam) Start:15-Dec-2019 Instruction Type:Provider Instructions for Treatment How to access health informa tion online Indication:Non-STEMI (non-ST elevated myocardial infarction) Start:28-Mar-2019 Instruction Type:Patient Education How to access health informa tion online - Detail Indication:Non-STEMI (non-ST elevated myocardial infarction) Start:28-Mar-2019 Instruction Type:Patient Education Patient Instructions Indication:Non-STEMI (non-ST elevated myocardial infarction) Start:28-Mar-2019 Instruction Type:Provider Instructions for Treatment How to access health informa tion online Indication:Current nonsmoker (Renamed from Current non-smoker) Start:18-Nov-2018 Instruction Type:Patient Education How to access health informa tion online - Detail Indication:Current nonsmoker (Renamed from Current non-smoker) Start:18-Nov-2018 Instruction Type:Patient Education Patient Instructions Indication:BMI 24.0-24.9, adult Start:18-Nov-2018 Instruction Type:Provider Instructions for Treatment How to access health informa tion online Indication:Non-STEMI (non-ST elevated myocardial infarction) Start:20-Sep-2018 Instruction Type:Patient Education How to access health informa tion online - Detail Indication:Non-STEMI (non-ST elevated myocardial infarction) Start:20-Sep-2018 Instruction Type:Patient Education Patient Instructions Indication:Non-STEMI (non-ST elevated myocardial infarction) Start:20-Sep-2018 Instruction Type:Provider Instructions for Treatment How to access health informa tion online Indication:Well woman exam (Renamed from Encounter for well woman exam) Start:08-Jun-2018 Instruction Type:Patient Education How to access health informa tion online - Detail Indication:Well woman exam (Renamed from Encounter for well woman exam) Start:08-Jun-2018 Instruction Type:Patient Education Patient Instructions Indication:Well woman exam (Renamed from Encounter for well woman exam) Start:08-Jun-2018 Instruction Type:Provider Instructions for Treatment How to access health informa tion online Indication:Non-STEMI (non-ST elevated myocardial infarction) Start:15-Mar-2018 Instruction Type:Patient Education How to access health informa tion online - Detail Indication:Non-STEMI (non-ST elevated myocardial infarction) Start:15-Mar-2018 Instruction Type:Patient Education Patient Instructions Indication:Non-STEMI (non-ST elevated myocardial infarction) Start:15-Mar-2018 Instruction Type:Provider Instructions for Treatment How to access health informa tion online Indication:Diverticulitis Start:08-Feb-2018 Instruction Type:Patient Education How to access health informa tion online - Detail Indication:Diverticulitis Start:08-Feb-2018 Instruction Type:Patient Education Patient Instructions Indication:Diverticulitis Start:08-Feb-2018 Instruction Type:Provider Instructions for Treatment How to access health informa tion online Indication:Well woman exam (Renamed from Encounter for well woman exam) Start:25-May-2017 Instruction Type:Patient Education How to access health informa tion online - Detail Indication:Well woman exam (Renamed from Encounter for well woman exam) Start:25-May-2017 Instruction Type:Patient Education Patient Instructions Indication:Well woman exam (Renamed from Encounter for well woman exam) Start:25-May-2017 Instruction Type:Provider Instructions for Treatment How to access health informa tion online Indication:BMI 24.0-24.9, adult Start:12-Jan-2017 Instruction Type:Patient Education How to access health informa tion online - Detail Indication:BMI 24.0-24.9, adult Start:12-Jan-2017 Instruction Type:Patient Education Patient Instructions Indication:BMI 24.0-24.9, adult Start:12-Jan-2017 Instruction Type:Provider Instructions for Treatment How to access health informa tion online Indication:BMI 26.0-26.9,adult Start:08-Sep-2016 Instruction Type:Patient Education How to access health informa tion online - Detail Indication:BMI 26.0-26.9,adult Start:08-Sep-2016 Instruction Type:Patient Education Patient Instructions Indication:BMI 26.0-26.9,adult Start:08-Sep-2016 Instruction Type:Provider Instructions for Treatment How to access health informa tion online Indication:Well woman exam (Renamed from Encounter for well woman exam) Start:05-May-2016 Instruction Type:Patient Education How to access health informa tion online - Detail Indication:Well woman exam (Renamed from Encounter for well woman exam) Start:05-May-2016 Instruction Type:Patient Education Patient Instructions Indication:Well woman exam (Renamed from Encounter for well woman exam) Start:05-May-2016 Instruction Type:Provider Instructions for Treatment How to access health informa tion online Indication:Acute cystitis without hematuria Start:23-Jul-2015 Instruction Type:Patient Education How to access health informa tion online - Detail Indication:Acute cystitis without hematuria Start:23-Jul-2015 Instruction Type:Patient Education Patient Instructions Indication:Acute cystitis without hematuria Start:23-Jul-2015 Instruction Type:Provider Instructions for Treatment How to access health informa tion online Indication:Thyroid nodule Start:18-Jun-2015 Instruction Type:Patient Education How to access health informa tion online - Detail Indication:Thyroid nodule Start:18-Jun-2015 Instruction Type:Patient Education Patient Instructions Indication:Thyroid nodule Start:18-Jun-2015 Instruction Type:Provider Instructions for Treatment How to access health informa tion online Indication:Well woman exam Start:16-Oct-2014 Instruction Type:Patient Education How to access health informa tion online - Detail Indication:Well woman exam Start:16-Oct-2014 Instruction Type:Patient Education Patient Instructions Indication:Well woman exam Start:16-Oct-2014 Instruction Type:Provider Instructions for Treatment [facility]; [facility] Work Phone: Instructions* Name Dates Details Patient Instructions Indication:Current nonsmoker (Renamed from Current non-smoker) Start:12-Dec-2021 Instruction Type:Provider Instructions for Treatment How to Access Health Informa tion Online using Patient Portal and [employer] Apps Indication:Current nonsmoker (Renamed from Current non-smoker) Start:12-Dec-2021 Instruction Type:Patient Education Patient Instructions Indication:Hypercholesteremia Start:10-Oct-2021 Instruction Type:Provider Instructions for Treatment How to Access Health Informa tion Online using Patient Portal and [employer] Apps Indication:Hypercholesteremia Start:10-Oct-2021 Instruction Type:Patient Education Patient Instructions Indication:Anxiety Start:05-Sep-2021 Instruction Type:Provider Instructions for Treatment How to Access Health Informa tion Online using Patient Portal and [employer] Apps Indication:Anxiety Start:05-Sep-2021 Instruction Type:Patient Education Patient Instructions Indication:Stress reaction (Renamed from Acute reaction to stress) Start:27-Dec-2020 Instruction Type:Provider Instructions for Treatment How to Access Health Informa tion Online using Patient Portal and [employer] Apps Indication:Stress reaction (Renamed from Acute reaction to stress) Start:27-Dec-2020 Instruction Type:Patient Education Patient Instructions Indication:BMI 27.0-27.9,adult Start:25-Oct-2020 Instruction Type:Provider Instructions for Treatment How to Access Health Informa tion Online using Patient Portal and [employer] Apps Indication:BMI 27.0-27.9,adult Start:25-Oct-2020 Instruction Type:Patient Education Patient Instructions Indication:Hypercholesteremia Start:19-Apr-2020 Instruction Type:Provider Instructions for Treatment How to Access Health Informa tion Online using Patient Portal and [employer] Apps Indication:Hypercholesteremia Start:19-Apr-2020 Instruction Type:Patient Education How to access health informa tion online Indication:Well woman exam (Renamed from Encounter for well woman exam) Start:15-Dec-2019 Instruction Type:Patient Education How to access health informa tion online - Detail Indication:Well woman exam (Renamed from Encounter for well woman exam) Start:15-Dec-2019 Instruction Type:Patient Education Patient Instructions Indication:Well woman exam (Renamed from Encounter for well woman exam) Start:15-Dec-2019 Instruction Type:Provider Instructions for Treatment How to access health informa tion online Indication:Non-STEMI (non-ST elevated myocardial infarction) Start:28-Mar-2019 Instruction Type:Patient Education How to access health informa tion online - Detail Indication:Non-STEMI (non-ST elevated myocardial infarction) Start:28-Mar-2019 Instruction Type:Patient Education Patient Instructions Indication:Non-STEMI (non-ST elevated myocardial infarction) Start:28-Mar-2019 Instruction Type:Provider Instructions for Treatment How to access health informa tion online Indication:Current nonsmoker (Renamed from Current non-smoker) Start:18-Nov-2018 Instruction Type:Patient Education How to access health informa tion online - Detail Indication:Current nonsmoker (Renamed from Current non-smoker) Start:18-Nov-2018 Instruction Type:Patient Education Patient Instructions Indication:BMI 24.0-24.9, adult Start:18-Nov-2018 Instruction Type:Provider Instructions for Treatment How to access health informa tion online Indication:Non-STEMI (non-ST elevated myocardial infarction) Start:20-Sep-2018 Instruction Type:Patient Education How to access health informa tion online - Detail Indication:Non-STEMI (non-ST elevated myocardial infarction) Start:20-Sep-2018 Instruction Type:Patient Education Patient Instructions Indication:Non-STEMI (non-ST elevated myocardial infarction) Start:20-Sep-2018 Instruction Type:Provider Instructions for Treatment How to access health informa tion online Indication:Well woman exam (Renamed from Encounter for well woman exam) Start:08-Jun-2018 Instruction Type:Patient Education How to access health informa tion online - Detail Indication:Well woman exam (Renamed from Encounter for well woman exam) Start:08-Jun-2018 Instruction Type:Patient Education Patient Instructions Indication:Well woman exam (Renamed from Encounter for well woman exam) Start:08-Jun-2018 Instruction Type:Provider Instructions for Treatment How to access health informa tion online Indication:Non-STEMI (non-ST elevated myocardial infarction) Start:15-Mar-2018 Instruction Type:Patient Education How to access health informa tion online - Detail Indication:Non-STEMI (non-ST elevated myocardial infarction) Start:15-Mar-2018 Instruction Type:Patient Education Patient Instructions Indication:Non-STEMI (non-ST elevated myocardial infarction) Start:15-Mar-2018 Instruction Type:Provider Instructions for Treatment How to access health informa tion online Indication:Diverticulitis Start:08-Feb-2018 Instruction Type:Patient Education How to access health informa tion online - Detail Indication:Diverticulitis Start:08-Feb-2018 Instruction Type:Patient Education Patient Instructions Indication:Diverticulitis Start:08-Feb-2018 Instruction Type:Provider Instructions for Treatment How to access health informa tion online Indication:Well woman exam (Renamed from Encounter for well woman exam) Start:25-May-2017 Instruction Type:Patient Education How to access health informa tion online - Detail Indication:Well woman exam (Renamed from Encounter for well woman exam) Start:25-May-2017 Instruction Type:Patient Education Patient Instructions Indication:Well woman exam (Renamed from Encounter for well woman exam) Start:25-May-2017 Instruction Type:Provider Instructions for Treatment How to access health informa tion online Indication:BMI 24.0-24.9, adult Start:12-Jan-2017 Instruction Type:Patient Education How to access health informa tion online - Detail Indication:BMI 24.0-24.9, adult Start:12-Jan-2017 Instruction Type:Patient Education Patient Instructions Indication:BMI 24.0-24.9, adult Start:12-Jan-2017 Instruction Type:Provider Instructions for Treatment How to access health informa tion online Indication:BMI 26.0-26.9,adult Start:08-Sep-2016 Instruction Type:Patient Education How to access health informa tion online - Detail Indication:BMI 26.0-26.9,adult Start:08-Sep-2016 Instruction Type:Patient Education Patient Instructions Indication:BMI 26.0-26.9,adult Start:08-Sep-2016 Instruction Type:Provider Instructions for Treatment How to access health informa tion online Indication:Well woman exam (Renamed from Encounter for well woman exam) Start:05-May-2016 Instruction Type:Patient Education How to access health informa tion online - Detail Indication:Well woman exam (Renamed from Encounter for well woman exam) Start:05-May-2016 Instruction Type:Patient Education Patient Instructions Indication:Well woman exam (Renamed from Encounter for well woman exam) Start:05-May-2016 Instruction Type:Provider Instructions for Treatment How to access health informa tion online Indication:Acute cystitis without hematuria Start:23-Jul-2015 Instruction Type:Patient Education How to access health informa tion online - Detail Indication:Acute cystitis without hematuria Start:23-Jul-2015 Instruction Type:Patient Education Patient Instructions Indication:Acute cystitis without hematuria Start:23-Jul-2015 Instruction Type:Provider Instructions for Treatment How to access health informa tion online Indication:Thyroid nodule Start:18-Jun-2015 Instruction Type:Patient Education How to access health informa tion online - Detail Indication:Thyroid nodule Start:18-Jun-2015 Instruction Type:Patient Education Patient Instructions Indication:Thyroid nodule Start:18-Jun-2015 Instruction Type:Provider Instructions for Treatment How to access health informa tion online Indication:Well woman exam Start:16-Oct-2014 Instruction Type:Patient Education How to access health informa tion online - Detail Indication:Well woman exam Start:16-Oct-2014 Instruction Type:Patient Education Patient Instructions Indication:Well woman exam Start:16-Oct-2014 Instruction Type:Provider Instructions for Treatment [facility]; [facility] Work Phone: Instructions* Name Dates Details Patient Instructions Indication:BMI 27.0-27.9,adult Start:13-Mar-2022 Instruction Type:Provider Instructions for Treatment How to Access Health Informa tion Online using Patient Portal and [employer] Apps Indication:BMI 27.0-27.9,adult Start:13-Mar-2022 Instruction Type:Patient Education Patient Instructions Indication:Current nonsmoker (Renamed from Current non-smoker) Start:12-Dec-2021 Instruction Type:Provider Instructions for Treatment How to Access Health Informa tion Online using Patient Portal and [employer] Apps Indication:Current nonsmoker (Renamed from Current non-smoker) Start:12-Dec-2021 Instruction Type:Patient Education Patient Instructions Indication:Hypercholesteremia Start:10-Oct-2021 Instruction Type:Provider Instructions for Treatment How to Access Health Informa tion Online using Patient Portal and [employer] Apps Indication:Hypercholesteremia Start:10-Oct-2021 Instruction Type:Patient Education Patient Instructions Indication:Anxiety Start:05-Sep-2021 Instruction Type:Provider Instructions for Treatment How to Access Health Informa tion Online using Patient Portal and [employer] Apps Indication:Anxiety Start:05-Sep-2021 Instruction Type:Patient Education Patient Instructions Indication:Stress reaction (Renamed from Acute reaction to stress) Start:27-Dec-2020 Instruction Type:Provider Instructions for Treatment How to Access Health Informa tion Online using Patient Portal and [employer] Apps Indication:Stress reaction (Renamed from Acute reaction to stress) Start:27-Dec-2020 Instruction Type:Patient Education Patient Instructions Indication:BMI 27.0-27.9,adult Start:25-Oct-2020 Instruction Type:Provider Instructions for Treatment How to Access Health Informa tion Online using Patient Portal and [employer] Apps Indication:BMI 27.0-27.9,adult Start:25-Oct-2020 Instruction Type:Patient Education Patient Instructions Indication:Hypercholesteremia Start:19-Apr-2020 Instruction Type:Provider Instructions for Treatment How to Access Health Informa tion Online using Patient Portal and [employer] Apps Indication:Hypercholesteremia Start:19-Apr-2020 Instruction Type:Patient Education How to access health informa tion online Indication:Well woman exam (Renamed from Encounter for well woman exam) Start:15-Dec-2019 Instruction Type:Patient Education How to access health informa tion online - Detail Indication:Well woman exam (Renamed from Encounter for well woman exam) Start:15-Dec-2019 Instruction Type:Patient Education Patient Instructions Indication:Well woman exam (Renamed from Encounter for well woman exam) Start:15-Dec-2019 Instruction Type:Provider Instructions for Treatment How to access health informa tion online Indication:Non-STEMI (non-ST elevated myocardial infarction) Start:28-Mar-2019 Instruction Type:Patient Education How to access health informa tion online - Detail Indication:Non-STEMI (non-ST elevated myocardial infarction) Start:28-Mar-2019 Instruction Type:Patient Education Patient Instructions Indication:Non-STEMI (non-ST elevated myocardial infarction) Start:28-Mar-2019 Instruction Type:Provider Instructions for Treatment How to access health informa tion online Indication:Current nonsmoker (Renamed from Current non-smoker) Start:18-Nov-2018 Instruction Type:Patient Education How to access health informa tion online - Detail Indication:Current nonsmoker (Renamed from Current non-smoker) Start:18-Nov-2018 Instruction Type:Patient Education Patient Instructions Indication:BMI 24.0-24.9, adult Start:18-Nov-2018 Instruction Type:Provider Instructions for Treatment How to access health informa tion online Indication:Non-STEMI (non-ST elevated myocardial infarction) Start:20-Sep-2018 Instruction Type:Patient Education How to access health informa tion online - Detail Indication:Non-STEMI (non-ST elevated myocardial infarction) Start:20-Sep-2018 Instruction Type:Patient Education Patient Instructions Indication:Non-STEMI (non-ST elevated myocardial infarction) Start:20-Sep-2018 Instruction Type:Provider Instructions for Treatment How to access health informa tion online Indication:Well woman exam (Renamed from Encounter for well woman exam) Start:08-Jun-2018 Instruction Type:Patient Education How to access health informa tion online - Detail Indication:Well woman exam (Renamed from Encounter for well woman exam) Start:08-Jun-2018 Instruction Type:Patient Education Patient Instructions Indication:Well woman exam (Renamed from Encounter for well woman exam) Start:08-Jun-2018 Instruction Type:Provider Instructions for Treatment How to access health informa tion online Indication:Non-STEMI (non-ST elevated myocardial infarction) Start:15-Mar-2018 Instruction Type:Patient Education How to access health informa tion online - Detail Indication:Non-STEMI (non-ST elevated myocardial infarction) Start:15-Mar-2018 Instruction Type:Patient Education Patient Instructions Indication:Non-STEMI (non-ST elevated myocardial infarction) Start:15-Mar-2018 Instruction Type:Provider Instructions for Treatment How to access health informa tion online Indication:Diverticulitis Start:08-Feb-2018 Instruction Type:Patient Education How to access health informa tion online - Detail Indication:Diverticulitis Start:08-Feb-2018 Instruction Type:Patient Education Patient Instructions Indication:Diverticulitis Start:08-Feb-2018 Instruction Type:Provider Instructions for Treatment How to access health informa tion online Indication:Well woman exam (Renamed from Encounter for well woman exam) Start:25-May-2017 Instruction Type:Patient Education How to access health informa tion online - Detail Indication:Well woman exam (Renamed from Encounter for well woman exam) Start:25-May-2017 Instruction Type:Patient Education Patient Instructions Indication:Well woman exam (Renamed from Encounter for well woman exam) Start:25-May-2017 Instruction Type:Provider Instructions for Treatment How to access health informa tion online Indication:BMI 24.0-24.9, adult Start:12-Jan-2017 Instruction Type:Patient Education How to access health informa tion online - Detail Indication:BMI 24.0-24.9, adult Start:12-Jan-2017 Instruction Type:Patient Education Patient Instructions Indication:BMI 24.0-24.9, adult Start:12-Jan-2017 Instruction Type:Provider Instructions for Treatment How to access health informa tion online Indication:BMI 26.0-26.9,adult Start:08-Sep-2016 Instruction Type:Patient Education How to access health informa tion online - Detail Indication:BMI 26.0-26.9,adult Start:08-Sep-2016 Instruction Type:Patient Education Patient Instructions Indication:BMI 26.0-26.9,adult Start:08-Sep-2016 Instruction Type:Provider Instructions for Treatment How to access health informa tion online Indication:Well woman exam (Renamed from Encounter for well woman exam) Start:05-May-2016 Instruction Type:Patient Education How to access health informa tion online - Detail Indication:Well woman exam (Renamed from Encounter for well woman exam) Start:05-May-2016 Instruction Type:Patient Education Patient Instructions Indication:Well woman exam (Renamed from Encounter for well woman exam) Start:05-May-2016 Instruction Type:Provider Instructions for Treatment How to access health informa tion online Indication:Acute cystitis without hematuria Start:23-Jul-2015 Instruction Type:Patient Education How to access health informa tion online - Detail Indication:Acute cystitis without hematuria Start:23-Jul-2015 Instruction Type:Patient Education Patient Instructions Indication:Acute cystitis without hematuria Start:23-Jul-2015 Instruction Type:Provider Instructions for Treatment How to access health informa tion online Indication:Thyroid nodule Start:18-Jun-2015 Instruction Type:Patient Education How to access health informa tion online - Detail Indication:Thyroid nodule Start:18-Jun-2015 Instruction Type:Patient Education Patient Instructions Indication:Thyroid nodule Start:18-Jun-2015 Instruction Type:Provider Instructions for Treatment How to access health informa tion online Indication:Well woman exam Start:16-Oct-2014 Instruction Type:Patient Education How to access health informa tion online - Detail Indication:Well woman exam Start:16-Oct-2014 Instruction Type:Patient Education Patient Instructions Indication:Well woman exam Start:16-Oct-2014 Instruction Type:Provider Instructions for Treatment [facility]; [facility] Work Phone: Instructions* Name Dates Details Patient Instructions Indication:BMI 27.0-27.9,adult Start:13-Mar-2022 Instruction Type:Provider Instructions for Treatment How to Access Health Informa tion Online using Patient Portal and [employer] Apps Indication:BMI 27.0-27.9,adult Start:13-Mar-2022 Instruction Type:Patient Education Patient Instructions Indication:Current nonsmoker (Renamed from Current non-smoker) Start:12-Dec-2021 Instruction Type:Provider Instructions for Treatment How to Access Health Informa tion Online using Patient Portal and [employer] Apps Indication:Current nonsmoker (Renamed from Current non-smoker) Start:12-Dec-2021 Instruction Type:Patient Education Patient Instructions Indication:Hypercholesteremia Start:10-Oct-2021 Instruction Type:Provider Instructions for Treatment How to Access Health Informa tion Online using Patient Portal and [employer] Apps Indication:Hypercholesteremia Start:10-Oct-2021 Instruction Type:Patient Education Patient Instructions Indication:Anxiety Start:05-Sep-2021 Instruction Type:Provider Instructions for Treatment How to Access Health Informa tion Online using Patient Portal and [employer] Apps Indication:Anxiety Start:05-Sep-2021 Instruction Type:Patient Education Patient Instructions Indication:Stress reaction (Renamed from Acute reaction to stress) Start:27-Dec-2020 Instruction Type:Provider Instructions for Treatment How to Access Health Informa tion Online using Patient Portal and [employer] Apps Indication:Stress reaction (Renamed from Acute reaction to stress) Start:27-Dec-2020 Instruction Type:Patient Education Patient Instructions Indication:BMI 27.0-27.9,adult Start:25-Oct-2020 Instruction Type:Provider Instructions for Treatment How to Access Health Informa tion Online using Patient Portal and [employer] Apps Indication:BMI 27.0-27.9,adult Start:25-Oct-2020 Instruction Type:Patient Education Patient Instructions Indication:Hypercholesteremia Start:19-Apr-2020 Instruction Type:Provider Instructions for Treatment How to Access Health Informa tion Online using Patient Portal and [employer] Apps Indication:Hypercholesteremia Start:19-Apr-2020 Instruction Type:Patient Education How to access health informa tion online Indication:Well woman exam (Renamed from Encounter for well woman exam) Start:15-Dec-2019 Instruction Type:Patient Education How to access health informa tion online - Detail Indication:Well woman exam (Renamed from Encounter for well woman exam) Start:15-Dec-2019 Instruction Type:Patient Education Patient Instructions Indication:Well woman exam (Renamed from Encounter for well woman exam) Start:15-Dec-2019 Instruction Type:Provider Instructions for Treatment How to access health informa tion online Indication:Non-STEMI (non-ST elevated myocardial infarction) Start:28-Mar-2019 Instruction Type:Patient Education How to access health informa tion online - Detail Indication:Non-STEMI (non-ST elevated myocardial infarction) Start:28-Mar-2019 Instruction Type:Patient Education Patient Instructions Indication:Non-STEMI (non-ST elevated myocardial infarction) Start:28-Mar-2019 Instruction Type:Provider Instructions for Treatment How to access health informa tion online Indication:Current nonsmoker (Renamed from Current non-smoker) Start:18-Nov-2018 Instruction Type:Patient Education How to access health informa tion online - Detail Indication:Current nonsmoker (Renamed from Current non-smoker) Start:18-Nov-2018 Instruction Type:Patient Education Patient Instructions Indication:BMI 24.0-24.9, adult Start:18-Nov-2018 Instruction Type:Provider Instructions for Treatment How to access health informa tion online Indication:Non-STEMI (non-ST elevated myocardial infarction) Start:20-Sep-2018 Instruction Type:Patient Education How to access health informa tion online - Detail Indication:Non-STEMI (non-ST elevated myocardial infarction) Start:20-Sep-2018 Instruction Type:Patient Education Patient Instructions Indication:Non-STEMI (non-ST elevated myocardial infarction) Start:20-Sep-2018 Instruction Type:Provider Instructions for Treatment How to access health informa tion online Indication:Well woman exam (Renamed from Encounter for well woman exam) Start:08-Jun-2018 Instruction Type:Patient Education How to access health informa tion online - Detail Indication:Well woman exam (Renamed from Encounter for well woman exam) Start:08-Jun-2018 Instruction Type:Patient Education Patient Instructions Indication:Well woman exam (Renamed from Encounter for well woman exam) Start:08-Jun-2018 Instruction Type:Provider Instructions for Treatment How to access health informa tion online Indication:Non-STEMI (non-ST elevated myocardial infarction) Start:15-Mar-2018 Instruction Type:Patient Education How to access health informa tion online - Detail Indication:Non-STEMI (non-ST elevated myocardial infarction) Start:15-Mar-2018 Instruction Type:Patient Education Patient Instructions Indication:Non-STEMI (non-ST elevated myocardial infarction) Start:15-Mar-2018 Instruction Type:Provider Instructions for Treatment How to access health informa tion online Indication:Diverticulitis Start:08-Feb-2018 Instruction Type:Patient Education How to access health informa tion online - Detail Indication:Diverticulitis Start:08-Feb-2018 Instruction Type:Patient Education Patient Instructions Indication:Diverticulitis Start:08-Feb-2018 Instruction Type:Provider Instructions for Treatment How to access health informa tion online Indication:Well woman exam (Renamed from Encounter for well woman exam) Start:25-May-2017 Instruction Type:Patient Education How to access health informa tion online - Detail Indication:Well woman exam (Renamed from Encounter for well woman exam) Start:25-May-2017 Instruction Type:Patient Education Patient Instructions Indication:Well woman exam (Renamed from Encounter for well woman exam) Start:25-May-2017 Instruction Type:Provider Instructions for Treatment How to access health informa tion online Indication:BMI 24.0-24.9, adult Start:12-Jan-2017 Instruction Type:Patient Education How to access health informa tion online - Detail Indication:BMI 24.0-24.9, adult Start:12-Jan-2017 Instruction Type:Patient Education Patient Instructions Indication:BMI 24.0-24.9, adult Start:12-Jan-2017 Instruction Type:Provider Instructions for Treatment How to access health informa tion online Indication:BMI 26.0-26.9,adult Start:08-Sep-2016 Instruction Type:Patient Education How to access health informa tion online - Detail Indication:BMI 26.0-26.9,adult Start:08-Sep-2016 Instruction Type:Patient Education Patient Instructions Indication:BMI 26.0-26.9,adult Start:08-Sep-2016 Instruction Type:Provider Instructions for Treatment How to access health informa tion online Indication:Well woman exam (Renamed from Encounter for well woman exam) Start:05-May-2016 Instruction Type:Patient Education How to access health informa tion online - Detail Indication:Well woman exam (Renamed from Encounter for well woman exam) Start:05-May-2016 Instruction Type:Patient Education Patient Instructions Indication:Well woman exam (Renamed from Encounter for well woman exam) Start:05-May-2016 Instruction Type:Provider Instructions for Treatment How to access health informa tion online Indication:Acute cystitis without hematuria Start:23-Jul-2015 Instruction Type:Patient Education How to access health informa tion online - Detail Indication:Acute cystitis without hematuria Start:23-Jul-2015 Instruction Type:Patient Education Patient Instructions Indication:Acute cystitis without hematuria Start:23-Jul-2015 Instruction Type:Provider Instructions for Treatment How to access health informa tion online Indication:Thyroid nodule Start:18-Jun-2015 Instruction Type:Patient Education How to access health informa tion online - Detail Indication:Thyroid nodule Start:18-Jun-2015 Instruction Type:Patient Education Patient Instructions Indication:Thyroid nodule Start:18-Jun-2015 Instruction Type:Provider Instructions for Treatment How to access health informa tion online Indication:Well woman exam Start:16-Oct-2014 Instruction Type:Patient Education How to access health informa tion online - Detail Indication:Well woman exam Start:16-Oct-2014 Instruction Type:Patient Education Patient Instructions Indication:Well woman exam Start:16-Oct-2014 Instruction Type:Provider Instructions for Treatment [facility]; [facility] Work Phone: Instructions* Name Dates Details Patient Instructions Indication:BMI 27.0-27.9,adult Start:15-Sep-2022 Instruction Type:Provider Instructions for Treatment How to Access Health Informa tion Online using Patient Portal and [employer] Apps Indication:BMI 27.0-27.9,adult Start:15-Sep-2022 Instruction Type:Patient Education Patient Instructions Indication:BMI 27.0-27.9,adult Start:13-Mar-2022 Instruction Type:Provider Instructions for Treatment How to Access Health Informa tion Online using Patient Portal and [employer] Apps Indication:BMI 27.0-27.9,adult Start:13-Mar-2022 Instruction Type:Patient Education Patient Instructions Indication:Current nonsmoker (Renamed from Current non-smoker) Start:12-Dec-2021 Instruction Type:Provider Instructions for Treatment How to Access Health Informa tion Online using Patient Portal and [employer] Apps Indication:Current nonsmoker (Renamed from Current non-smoker) Start:12-Dec-2021 Instruction Type:Patient Education Patient Instructions Indication:Hypercholesteremia Start:10-Oct-2021 Instruction Type:Provider Instructions for Treatment How to Access Health Informa tion Online using Patient Portal and [employer] Apps Indication:Hypercholesteremia Start:10-Oct-2021 Instruction Type:Patient Education Patient Instructions Indication:Anxiety Start:05-Sep-2021 Instruction Type:Provider Instructions for Treatment How to Access Health Informa tion Online using Patient Portal and [employer] Apps Indication:Anxiety Start:05-Sep-2021 Instruction Type:Patient Education Patient Instructions Indication:Stress reaction (Renamed from Acute reaction to stress) Start:27-Dec-2020 Instruction Type:Provider Instructions for Treatment How to Access Health Informa tion Online using Patient Portal and [employer] Apps Indication:Stress reaction (Renamed from Acute reaction to stress) Start:27-Dec-2020 Instruction Type:Patient Education Patient Instructions Indication:BMI 27.0-27.9,adult Start:25-Oct-2020 Instruction Type:Provider Instructions for Treatment How to Access Health Informa tion Online using Patient Portal and [employer] Apps Indication:BMI 27.0-27.9,adult Start:25-Oct-2020 Instruction Type:Patient Education Patient Instructions Indication:Hypercholesteremia Start:19-Apr-2020 Instruction Type:Provider Instructions for Treatment How to Access Health Informa tion Online using Patient Portal and [employer] Apps Indication:Hypercholesteremia Start:19-Apr-2020 Instruction Type:Patient Education How to access health informa tion online Indication:Encounter for well adult exam with abnormal findings Start:15-Dec-2019 Instruction Type:Patient Education How to access health informa tion online - Detail Indication:Encounter for well adult exam with abnormal findings Start:15-Dec-2019 Instruction Type:Patient Education Patient Instructions Indication:Encounter for well adult exam with abnormal findings Start:15-Dec-2019 Instruction Type:Provider Instructions for Treatment How to access health informa tion online Indication:Non-STEMI (non-ST elevated myocardial infarction) Start:28-Mar-2019 Instruction Type:Patient Education How to access health informa tion online - Detail Indication:Non-STEMI (non-ST elevated myocardial infarction) Start:28-Mar-2019 Instruction Type:Patient Education Patient Instructions Indication:Non-STEMI (non-ST elevated myocardial infarction) Start:28-Mar-2019 Instruction Type:Provider Instructions for Treatment How to access health informa tion online Indication:Current nonsmoker (Renamed from Current non-smoker) Start:18-Nov-2018 Instruction Type:Patient Education How to access health informa tion online - Detail Indication:Current nonsmoker (Renamed from Current non-smoker) Start:18-Nov-2018 Instruction Type:Patient Education Patient Instructions Indication:BMI 24.0-24.9, adult Start:18-Nov-2018 Instruction Type:Provider Instructions for Treatment How to access health informa tion online Indication:Non-STEMI (non-ST elevated myocardial infarction) Start:20-Sep-2018 Instruction Type:Patient Education How to access health informa tion online - Detail Indication:Non-STEMI (non-ST elevated myocardial infarction) Start:20-Sep-2018 Instruction Type:Patient Education Patient Instructions Indication:Non-STEMI (non-ST elevated myocardial infarction) Start:20-Sep-2018 Instruction Type:Provider Instructions for Treatment How to access health informa tion online Indication:Encounter for well adult exam with abnormal findings Start:08-Jun-2018 Instruction Type:Patient Education How to access health informa tion online - Detail Indication:Encounter for well adult exam with abnormal findings Start:08-Jun-2018 Instruction Type:Patient Education Patient Instructions Indication:Encounter for well adult exam with abnormal findings Start:08-Jun-2018 Instruction Type:Provider Instructions for Treatment How to access health informa tion online Indication:Non-STEMI (non-ST elevated myocardial infarction) Start:15-Mar-2018 Instruction Type:Patient Education How to access health informa tion online - Detail Indication:Non-STEMI (non-ST elevated myocardial infarction) Start:15-Mar-2018 Instruction Type:Patient Education Patient Instructions Indication:Non-STEMI (non-ST elevated myocardial infarction) Start:15-Mar-2018 Instruction Type:Provider Instructions for Treatment How to access health informa tion online Indication:Diverticulitis Start:08-Feb-2018 Instruction Type:Patient Education How to access health informa tion online - Detail Indication:Diverticulitis Start:08-Feb-2018 Instruction Type:Patient Education Patient Instructions Indication:Diverticulitis Start:08-Feb-2018 Instruction Type:Provider Instructions for Treatment How to access health informa tion online Indication:Encounter for well adult exam with abnormal findings Start:25-May-2017 Instruction Type:Patient Education How to access health informa tion online - Detail Indication:Encounter for well adult exam with abnormal findings Start:25-May-2017 Instruction Type:Patient Education Patient Instructions Indication:Encounter for well adult exam with abnormal findings Start:25-May-2017 Instruction Type:Provider Instructions for Treatment How to access health informa tion online Indication:BMI 24.0-24.9, adult Start:12-Jan-2017 Instruction Type:Patient Education How to access health informa tion online - Detail Indication:BMI 24.0-24.9, adult Start:12-Jan-2017 Instruction Type:Patient Education Patient Instructions Indication:BMI 24.0-24.9, adult Start:12-Jan-2017 Instruction Type:Provider Instructions for Treatment How to access health informa tion online Indication:BMI 26.0-26.9,adult Start:08-Sep-2016 Instruction Type:Patient Education How to access health informa tion online - Detail Indication:BMI 26.0-26.9,adult Start:08-Sep-2016 Instruction Type:Patient Education Patient Instructions Indication:BMI 26.0-26.9,adult Start:08-Sep-2016 Instruction Type:Provider Instructions for Treatment How to access health informa tion online Indication:Encounter for well adult exam with abnormal findings Start:05-May-2016 Instruction Type:Patient Education How to access health informa tion online - Detail Indication:Encounter for well adult exam with abnormal findings Start:05-May-2016 Instruction Type:Patient Education Patient Instructions Indication:Encounter for well adult exam with abnormal findings Start:05-May-2016 Instruction Type:Provider Instructions for Treatment How to access health informa tion online Indication:Acute cystitis without hematuria Start:23-Jul-2015 Instruction Type:Patient Education How to access health informa tion online - Detail Indication:Acute cystitis without hematuria Start:23-Jul-2015 Instruction Type:Patient Education Patient Instructions Indication:Acute cystitis without hematuria Start:23-Jul-2015 Instruction Type:Provider Instructions for Treatment How to access health informa tion online Indication:Thyroid nodule Start:18-Jun-2015 Instruction Type:Patient Education How to access health informa tion online - Detail Indication:Thyroid nodule Start:18-Jun-2015 Instruction Type:Patient Education Patient Instructions Indication:Thyroid nodule Start:18-Jun-2015 Instruction Type:Provider Instructions for Treatment How to access health informa tion online Indication:Well woman exam Start:16-Oct-2014 Instruction Type:Patient Education How to access health informa tion online - Detail Indication:Well woman exam Start:16-Oct-2014 Instruction Type:Patient Education Patient Instructions Indication:Well woman exam Start:16-Oct-2014 Instruction Type:Provider Instructions for Treatment [facility]; [facility] Work Phone: Instructions* Name Dates Details Patient Instructions Indication:BMI 27.0-27.9,adult Start:15-Sep-2022 Instruction Type:Provider Instructions for Treatment How to Access Health Informa tion Online using Patient Portal and [employer] Apps Indication:BMI 27.0-27.9,adult Start:15-Sep-2022 Instruction Type:Patient Education Patient Instructions Indication:BMI 27.0-27.9,adult Start:13-Mar-2022 Instruction Type:Provider Instructions for Treatment How to Access Health Informa tion Online using Patient Portal and [employer] Indication:BMI 27.0-27.9,adult Start:13-Mar-2022 Instruction Type:Patient Education Patient Instructions Indication:Current nonsmoker (Renamed from Current non-smoker) Start:12-Dec-2021 Instruction Type:Provider Instructions for Treatment How to Access Health Informa tion Online using Patient Portal and [employer] Indication:Current nonsmoker (Renamed from Current non-smoker) Start:12-Dec-2021 Instruction Type:Patient Education Patient Instructions Indication:Hypercholesteremia Start:10-Oct-2021 Instruction Type:Provider Instructions for Treatment How to Access Health Informa tion Online using Patient Portal and [employer] Apps Indication:Hypercholesteremia Start:10-Oct-2021 Instruction Type:Patient Education Patient Instructions Indication:Anxiety Start:05-Sep-2021 Instruction Type:Provider Instructions for Treatment How to Access Health Informa tion Online using Patient Portal and [employer] Apps Indication:Anxiety Start:05-Sep-2021 Instruction Type:Patient Education Patient Instructions Indication:Stress reaction (Renamed from Acute reaction to stress) Start:27-Dec-2020 Instruction Type:Provider Instructions for Treatment How to Access Health Informa tion Online using Patient Portal and [employer] Apps Indication:Stress reaction (Renamed from Acute reaction to stress) Start:27-Dec-2020 Instruction Type:Patient Education Patient Instructions Indication:BMI 27.0-27.9,adult Start:25-Oct-2020 Instruction Type:Provider Instructions for Treatment How to Access Health Informa tion Online using Patient Portal and [employer] Indication:BMI 27.0-27.9,adult Start:25-Oct-2020 Instruction Type:Patient Education Patient Instructions Indication:Hypercholesteremia Start:19-Apr-2020 Instruction Type:Provider Instructions for Treatment How to Access Health Informa tion Online using Patient Portal and [employer] Apps Indication:Hypercholesteremia Start:19-Apr-2020 Instruction Type:Patient Education How to access health informa tion online Indication:Encounter for well adult exam with abnormal findings Start:15-Dec-2019 Instruction Type:Patient Education How to access health informa tion online - Detail Indication:Encounter for well adult exam with abnormal findings Start:15-Dec-2019 Instruction Type:Patient Education Patient Instructions Indication:Encounter for well adult exam with abnormal findings Start:15-Dec-2019 Instruction Type:Provider Instructions for Treatment How to access health informa tion online Indication:Non-STEMI (non-ST elevated myocardial infarction) Start:28-Mar-2019 Instruction Type:Patient Education How to access health informa tion online - Detail Indication:Non-STEMI (non-ST elevated myocardial infarction) Start:28-Mar-2019 Instruction Type:Patient Education Patient Instructions Indication:Non-STEMI (non-ST elevated myocardial infarction) Start:28-Mar-2019 Instruction Type:Provider Instructions for Treatment How to access health informa tion online Indication:Current nonsmoker (Renamed from Current non-smoker) Start:18-Nov-2018 Instruction Type:Patient Education How to access health informa tion online - Detail Indication:Current nonsmoker (Renamed from Current non-smoker) Start:18-Nov-2018 Instruction Type:Patient Education Patient Instructions Indication:BMI 24.0-24.9, adult Start:18-Nov-2018 Instruction Type:Provider Instructions for Treatment How to access health informa tion online Indication:Non-STEMI (non-ST elevated myocardial infarction) Start:20-Sep-2018 Instruction Type:Patient Education How to access health informa tion online - Detail Indication:Non-STEMI (non-ST elevated myocardial infarction) Start:20-Sep-2018 Instruction Type:Patient Education Patient Instructions Indication:Non-STEMI (non-ST elevated myocardial infarction) Start:20-Sep-2018 Instruction Type:Provider Instructions for Treatment How to access health informa tion online Indication:Encounter for well adult exam with abnormal findings Start:08-Jun-2018 Instruction Type:Patient Education How to access health informa tion online - Detail Indication:Encounter for well adult exam with abnormal findings Start:08-Jun-2018 Instruction Type:Patient Education Patient Instructions Indication:Encounter for well adult exam with abnormal findings Start:08-Jun-2018 Instruction Type:Provider Instructions for Treatment How to access health informa tion online Indication:Non-STEMI (non-ST elevated myocardial infarction) Start:15-Mar-2018 Instruction Type:Patient Education How to access health informa tion online - Detail Indication:Non-STEMI (non-ST elevated myocardial infarction) Start:15-Mar-2018 Instruction Type:Patient Education Patient Instructions Indication:Non-STEMI (non-ST elevated myocardial infarction) Start:15-Mar-2018 Instruction Type:Provider Instructions for Treatment How to access health informa tion online Indication:Diverticulitis Start:08-Feb-2018 Instruction Type:Patient Education How to access health informa tion online - Detail Indication:Diverticulitis Start:08-Feb-2018 Instruction Type:Patient Education Patient Instructions Indication:Diverticulitis Start:08-Feb-2018 Instruction Type:Provider Instructions for Treatment How to access health informa tion online Indication:Encounter for well adult exam with abnormal findings Start:25-May-2017 Instruction Type:Patient Education How to access health informa tion online - Detail Indication:Encounter for well adult exam with abnormal findings Start:25-May-2017 Instruction Type:Patient Education Patient Instructions Indication:Encounter for well adult exam with abnormal findings Start:25-May-2017 Instruction Type:Provider Instructions for Treatment How to access health informa tion online Indication:BMI 24.0-24.9, adult Start:12-Jan-2017 Instruction Type:Patient Education How to access health informa tion online - Detail Indication:BMI 24.0-24.9, adult Start:12-Jan-2017 Instruction Type:Patient Education Patient Instructions Indication:BMI 24.0-24.9, adult Start:12-Jan-2017 Instruction Type:Provider Instructions for Treatment How to access health informa tion online Indication:BMI 26.0-26.9,adult Start:08-Sep-2016 Instruction Type:Patient Education How to access health informa tion online - Detail Indication:BMI 26.0-26.9,adult Start:08-Sep-2016 Instruction Type:Patient Education Patient Instructions Indication:BMI 26.0-26.9,adult Start:08-Sep-2016 Instruction Type:Provider Instructions for Treatment How to access health informa tion online Indication:Encounter for well adult exam with abnormal findings Start:05-May-2016 Instruction Type:Patient Education How to access health informa tion online - Detail Indication:Encounter for well adult exam with abnormal findings Start:05-May-2016 Instruction Type:Patient Education Patient Instructions Indication:Encounter for well adult exam with abnormal findings Start:05-May-2016 Instruction Type:Provider Instructions for Treatment How to access health informa tion online Indication:Acute cystitis without hematuria Start:23-Jul-2015 Instruction Type:Patient Education How to access health informa tion online - Detail Indication:Acute cystitis without hematuria Start:23-Jul-2015 Instruction Type:Patient Education Patient Instructions Indication:Acute cystitis without hematuria Start:23-Jul-2015 Instruction Type:Provider Instructions for Treatment How to access health informa tion online Indication:Thyroid nodule Start:18-Jun-2015 Instruction Type:Patient Education How to access health informa tion online - Detail Indication:Thyroid nodule Start:18-Jun-2015 Instruction Type:Patient Education Patient Instructions Indication:Thyroid nodule Start:18-Jun-2015 Instruction Type:Provider Instructions for Treatment How to access health informa tion online Indication:Well woman exam Start:16-Oct-2014 Instruction Type:Patient Education How to access health informa tion online - Detail Indication:Well woman exam Start:16-Oct-2014 Instruction Type:Patient Education Patient Instructions Indication:Well woman exam Start:16-Oct-2014 Instruction Type:Provider Instructions for Treatment [facility]; [facility] Work Phone: Instructions* Name Dates Details Patient Instructions Indication:Low back pain Start:07-Dec-2022 Instruction Type:Provider Instructions for Treatment How to Access Health Informa tion Online using Patient Portal and [employer] Apps Indication:Low back pain Start:07-Dec-2022 Instruction Type:Patient Education Patient Instructions Indication:BMI 27.0-27.9,adult Start:15-Sep-2022 Instruction Type:Provider Instructions for Treatment How to Access Health Informa tion Online using Patient Portal and [employer] Apps Indication:BMI 27.0-27.9,adult Start:15-Sep-2022 Instruction Type:Patient Education Patient Instructions Indication:BMI 27.0-27.9,adult Start:13-Mar-2022 Instruction Type:Provider Instructions for Treatment How to Access Health Informa tion Online using Patient Portal and [employer] Indication:BMI 27.0-27.9,adult Start:13-Mar-2022 Instruction Type:Patient Education Patient Instructions Indication:Current nonsmoker (Renamed from Current non-smoker) Start:12-Dec-2021 Instruction Type:Provider Instructions for Treatment How to Access Health Informa tion Online using Patient Portal and [employer] Apps Indication:Current nonsmoker (Renamed from Current non-smoker) Start:12-Dec-2021 Instruction Type:Patient Education Patient Instructions Indication:Hypercholesteremia Start:10-Oct-2021 Instruction Type:Provider Instructions for Treatment How to Access Health Informa tion Online using Patient Portal and [employer] Indication:Hypercholesteremia Start:10-Oct-2021 Instruction Type:Patient Education Patient Instructions Indication:Anxiety Start:05-Sep-2021 Instruction Type:Provider Instructions for Treatment How to Access Health Informa tion Online using Patient Portal and [employer] Apps Indication:Anxiety Start:05-Sep-2021 Instruction Type:Patient Education Patient Instructions Indication:Stress reaction (Renamed from Acute reaction to stress) Start:27-Dec-2020 Instruction Type:Provider Instructions for Treatment How to Access Health Informa tion Online using Patient Portal and [employer] Indication:Stress reaction (Renamed from Acute reaction to stress) Start:27-Dec-2020 Instruction Type:Patient Education Patient Instructions Indication:BMI 27.0-27.9,adult Start:25-Oct-2020 Instruction Type:Provider Instructions for Treatment How to Access Health Informa tion Online using Patient Portal and [employer] Apps Indication:BMI 27.0-27.9,adult Start:25-Oct-2020 Instruction Type:Patient Education Patient Instructions Indication:Hypercholesteremia Start:19-Apr-2020 Instruction Type:Provider Instructions for Treatment How to Access Health Informa tion Online using Patient Portal and [employer] Apps Indication:Hypercholesteremia Start:19-Apr-2020 Instruction Type:Patient Education How to access health informa tion online Indication:Encounter for well adult exam with abnormal findings Start:15-Dec-2019 Instruction Type:Patient Education How to access health informa tion online - Detail Indication:Encounter for well adult exam with abnormal findings Start:15-Dec-2019 Instruction Type:Patient Education Patient Instructions Indication:Encounter for well adult exam with abnormal findings Start:15-Dec-2019 Instruction Type:Provider Instructions for Treatment How to access health informa tion online Indication:Non-STEMI (non-ST elevated myocardial infarction) Start:28-Mar-2019 Instruction Type:Patient Education How to access health informa tion online - Detail Indication:Non-STEMI (non-ST elevated myocardial infarction) Start:28-Mar-2019 Instruction Type:Patient Education Patient Instructions Indication:Non-STEMI (non-ST elevated myocardial infarction) Start:28-Mar-2019 Instruction Type:Provider Instructions for Treatment How to access health informa tion online Indication:Current nonsmoker (Renamed from Current non-smoker) Start:18-Nov-2018 Instruction Type:Patient Education How to access health informa tion online - Detail Indication:Current nonsmoker (Renamed from Current non-smoker) Start:18-Nov-2018 Instruction Type:Patient Education Patient Instructions Indication:BMI 24.0-24.9, adult Start:18-Nov-2018 Instruction Type:Provider Instructions for Treatment How to access health informa tion online Indication:Non-STEMI (non-ST elevated myocardial infarction) Start:20-Sep-2018 Instruction Type:Patient Education How to access health informa tion online - Detail Indication:Non-STEMI (non-ST elevated myocardial infarction) Start:20-Sep-2018 Instruction Type:Patient Education Patient Instructions Indication:Non-STEMI (non-ST elevated myocardial infarction) Start:20-Sep-2018 Instruction Type:Provider Instructions for Treatment How to access health informa tion online Indication:Encounter for well adult exam with abnormal findings Start:08-Jun-2018 Instruction Type:Patient Education How to access health informa tion online - Detail Indication:Encounter for well adult exam with abnormal findings Start:08-Jun-2018 Instruction Type:Patient Education Patient Instructions Indication:Encounter for well adult exam with abnormal findings Start:08-Jun-2018 Instruction Type:Provider Instructions for Treatment How to access health informa tion online Indication:Non-STEMI (non-ST elevated myocardial infarction) Start:15-Mar-2018 Instruction Type:Patient Education How to access health informa tion online - Detail Indication:Non-STEMI (non-ST elevated myocardial infarction) Start:15-Mar-2018 Instruction Type:Patient Education Patient Instructions Indication:Non-STEMI (non-ST elevated myocardial infarction) Start:15-Mar-2018 Instruction Type:Provider Instructions for Treatment How to access health informa tion online Indication:Diverticulitis Start:08-Feb-2018 Instruction Type:Patient Education How to access health informa tion online - Detail Indication:Diverticulitis Start:08-Feb-2018 Instruction Type:Patient Education Patient Instructions Indication:Diverticulitis Start:08-Feb-2018 Instruction Type:Provider Instructions for Treatment How to access health informa tion online Indication:Encounter for well adult exam with abnormal findings Start:25-May-2017 Instruction Type:Patient Education How to access health informa tion online - Detail Indication:Encounter for well adult exam with abnormal findings Start:25-May-2017 Instruction Type:Patient Education Patient Instructions Indication:Encounter for well adult exam with abnormal findings Start:25-May-2017 Instruction Type:Provider Instructions for Treatment How to access health informa tion online Indication:BMI 24.0-24.9, adult Start:12-Jan-2017 Instruction Type:Patient Education How to access health informa tion online - Detail Indication:BMI 24.0-24.9, adult Start:12-Jan-2017 Instruction Type:Patient Education Patient Instructions Indication:BMI 24.0-24.9, adult Start:12-Jan-2017 Instruction Type:Provider Instructions for Treatment How to access health informa tion online Indication:BMI 26.0-26.9,adult Start:08-Sep-2016 Instruction Type:Patient Education How to access health informa tion online - Detail Indication:BMI 26.0-26.9,adult Start:08-Sep-2016 Instruction Type:Patient Education Patient Instructions Indication:BMI 26.0-26.9,adult Start:08-Sep-2016 Instruction Type:Provider Instructions for Treatment How to access health informa tion online Indication:Encounter for well adult exam with abnormal findings Start:05-May-2016 Instruction Type:Patient Education How to access health informa tion online - Detail Indication:Encounter for well adult exam with abnormal findings Start:05-May-2016 Instruction Type:Patient Education Patient Instructions Indication:Encounter for well adult exam with abnormal findings Start:05-May-2016 Instruction Type:Provider Instructions for Treatment How to access health informa tion online Indication:Acute cystitis without hematuria Start:23-Jul-2015 Instruction Type:Patient Education How to access health informa tion online - Detail Indication:Acute cystitis without hematuria Start:23-Jul-2015 Instruction Type:Patient Education Patient Instructions Indication:Acute cystitis without hematuria Start:23-Jul-2015 Instruction Type:Provider Instructions for Treatment How to access health informa tion online Indication:Thyroid nodule Start:18-Jun-2015 Instruction Type:Patient Education How to access health informa tion online - Detail Indication:Thyroid nodule Start:18-Jun-2015 Instruction Type:Patient Education Patient Instructions Indication:Thyroid nodule Start:18-Jun-2015 Instruction Type:Provider Instructions for Treatment How to access health informa tion online Indication:Well woman exam Start:16-Oct-2014 Instruction Type:Patient Education How to access health informa tion online - Detail Indication:Well woman exam Start:16-Oct-2014 Instruction Type:Patient Education Patient Instructions Indication:Well woman exam Start:16-Oct-2014 Instruction Type:Provider Instructions for Treatment [facility]; [facility] Work Phone: Instructions* Name Dates Details Patient Instructions Indication:Low back pain Start:07-Dec-2022 Instruction Type:Provider Instructions for Treatment How to Access Health Informa tion Online using Patient Portal and [employer] Apps Indication:Low back pain Start:07-Dec-2022 Instruction Type:Patient Education Patient Instructions Indication:BMI 27.0-27.9,adult Start:15-Sep-2022 Instruction Type:Provider Instructions for Treatment How to Access Health Informa tion Online using Patient Portal and [employer] Indication:BMI 27.0-27.9,adult Start:15-Sep-2022 Instruction Type:Patient Education Patient Instructions Indication:BMI 27.0-27.9,adult Start:13-Mar-2022 Instruction Type:Provider Instructions for Treatment How to Access Health Informa tion Online using Patient Portal and [employer] Indication:BMI 27.0-27.9,adult Start:13-Mar-2022 Instruction Type:Patient Education Patient Instructions Indication:Current nonsmoker (Renamed from Current non-smoker) Start:12-Dec-2021 Instruction Type:Provider Instructions for Treatment How to Access Health Informa tion Online using Patient Portal and [employer] Apps Indication:Current nonsmoker (Renamed from Current non-smoker) Start:12-Dec-2021 Instruction Type:Patient Education Patient Instructions Indication:Hypercholesteremia Start:10-Oct-2021 Instruction Type:Provider Instructions for Treatment How to Access Health Informa tion Online using Patient Portal and [employer] Indication:Hypercholesteremia Start:10-Oct-2021 Instruction Type:Patient Education Patient Instructions Indication:Anxiety Start:05-Sep-2021 Instruction Type:Provider Instructions for Treatment How to Access Health Informa tion Online using Patient Portal and [employer] Apps Indication:Anxiety Start:05-Sep-2021 Instruction Type:Patient Education Patient Instructions Indication:Stress reaction (Renamed from Acute reaction to stress) Start:27-Dec-2020 Instruction Type:Provider Instructions for Treatment How to Access Health Informa tion Online using Patient Portal and [employer] Apps Indication:Stress reaction (Renamed from Acute reaction to stress) Start:27-Dec-2020 Instruction Type:Patient Education Patient Instructions Indication:BMI 27.0-27.9,adult Start:25-Oct-2020 Instruction Type:Provider Instructions for Treatment How to Access Health Informa tion Online using Patient Portal and [employer] [employer] Apps Indication:BMI 27.0-27.9,adult Start:25-Oct-2020 Instruction Type:Patient Education Patient Instructions Indication:Hypercholesteremia Start:19-Apr-2020 Instruction Type:Provider Instructions for Treatment How to Access Health Informa tion Online using Patient Portal and [employer] Indication:Hypercholesteremia Start:19-Apr-2020 Instruction Type:Patient Education How to access health informa tion online Indication:Encounter for well adult exam with abnormal findings Start:15-Dec-2019 Instruction Type:Patient Education How to access health informa tion online - Detail Indication:Encounter for well adult exam with abnormal findings Start:15-Dec-2019 Instruction Type:Patient Education Patient Instructions Indication:Encounter for well adult exam with abnormal findings Start:15-Dec-2019 Instruction Type:Provider Instructions for Treatment How to access health informa tion online Indication:Non-STEMI (non-ST elevated myocardial infarction) Start:28-Mar-2019 Instruction Type:Patient Education How to access health informa tion online - Detail Indication:Non-STEMI (non-ST elevated myocardial infarction) Start:28-Mar-2019 Instruction Type:Patient Education Patient Instructions Indication:Non-STEMI (non-ST elevated myocardial infarction) Start:28-Mar-2019 Instruction Type:Provider Instructions for Treatment How to access health informa tion online Indication:Current nonsmoker (Renamed from Current non-smoker) Start:18-Nov-2018 Instruction Type:Patient Education How to access health informa tion online - Detail Indication:Current nonsmoker (Renamed from Current non-smoker) Start:18-Nov-2018 Instruction Type:Patient Education Patient Instructions Indication:BMI 24.0-24.9, adult Start:18-Nov-2018 Instruction Type:Provider Instructions for Treatment How to access health informa tion online Indication:Non-STEMI (non-ST elevated myocardial infarction) Start:20-Sep-2018 Instruction Type:Patient Education How to access health informa tion online - Detail Indication:Non-STEMI (non-ST elevated myocardial infarction) Start:20-Sep-2018 Instruction Type:Patient Education Patient Instructions Indication:Non-STEMI (non-ST elevated myocardial infarction) Start:20-Sep-2018 Instruction Type:Provider Instructions for Treatment How to access health informa tion online Indication:Encounter for well adult exam with abnormal findings Start:08-Jun-2018 Instruction Type:Patient Education How to access health informa tion online - Detail Indication:Encounter for well adult exam with abnormal findings Start:08-Jun-2018 Instruction Type:Patient Education Patient Instructions Indication:Encounter for well adult exam with abnormal findings Start:08-Jun-2018 Instruction Type:Provider Instructions for Treatment How to access health informa tion online Indication:Non-STEMI (non-ST elevated myocardial infarction) Start:15-Mar-2018 Instruction Type:Patient Education How to access health informa tion online - Detail Indication:Non-STEMI (non-ST elevated myocardial infarction) Start:15-Mar-2018 Instruction Type:Patient Education Patient Instructions Indication:Non-STEMI (non-ST elevated myocardial infarction) Start:15-Mar-2018 Instruction Type:Provider Instructions for Treatment How to access health informa tion online Indication:Diverticulitis Start:08-Feb-2018 Instruction Type:Patient Education How to access health informa tion online - Detail Indication:Diverticulitis Start:08-Feb-2018 Instruction Type:Patient Education Patient Instructions Indication:Diverticulitis Start:08-Feb-2018 Instruction Type:Provider Instructions for Treatment How to access health informa tion online Indication:Encounter for well adult exam with abnormal findings Start:25-May-2017 Instruction Type:Patient Education How to access health informa tion online - Detail Indication:Encounter for well adult exam with abnormal findings Start:25-May-2017 Instruction Type:Patient Education Patient Instructions Indication:Encounter for well adult exam with abnormal findings Start:25-May-2017 Instruction Type:Provider Instructions for Treatment How to access health informa tion online Indication:BMI 24.0-24.9, adult Start:12-Jan-2017 Instruction Type:Patient Education How to access health informa tion online - Detail Indication:BMI 24.0-24.9, adult Start:12-Jan-2017 Instruction Type:Patient Education Patient Instructions Indication:BMI 24.0-24.9, adult Start:12-Jan-2017 Instruction Type:Provider Instructions for Treatment How to access health informa tion online Indication:BMI 26.0-26.9,adult Start:08-Sep-2016 Instruction Type:Patient Education How to access health informa tion online - Detail Indication:BMI 26.0-26.9,adult Start:08-Sep-2016 Instruction Type:Patient Education Patient Instructions Indication:BMI 26.0-26.9,adult Start:08-Sep-2016 Instruction Type:Provider Instructions for Treatment How to access health informa tion online Indication:Encounter for well adult exam with abnormal findings Start:05-May-2016 Instruction Type:Patient Education How to access health informa tion online - Detail Indication:Encounter for well adult exam with abnormal findings Start:05-May-2016 Instruction Type:Patient Education Patient Instructions Indication:Encounter for well adult exam with abnormal findings Start:05-May-2016 Instruction Type:Provider Instructions for Treatment How to access health informa tion online Indication:Acute cystitis without hematuria Start:23-Jul-2015 Instruction Type:Patient Education How to access health informa tion online - Detail Indication:Acute cystitis without hematuria Start:23-Jul-2015 Instruction Type:Patient Education Patient Instructions Indication:Acute cystitis without hematuria Start:23-Jul-2015 Instruction Type:Provider Instructions for Treatment How to access health informa tion online Indication:Thyroid nodule Start:18-Jun-2015 Instruction Type:Patient Education How to access health informa tion online - Detail Indication:Thyroid nodule Start:18-Jun-2015 Instruction Type:Patient Education Patient Instructions Indication:Thyroid nodule Start:18-Jun-2015 Instruction Type:Provider Instructions for Treatment How to access health informa tion online Indication:Well woman exam Start:16-Oct-2014 Instruction Type:Patient Education How to access health informa tion online - Detail Indication:Well woman exam Start:16-Oct-2014 Instruction Type:Patient Education Patient Instructions Indication:Well woman exam Start:16-Oct-2014 Instruction Type:Provider Instructions for Treatment [facility] Work Phone: Instructions* Name Dates Details Patient Instructions Indication:Low back pain Start:07-Dec-2022 Instruction Type:Provider Instructions for Treatment How to Access Health Informa tion Online using Patient Portal and [employer] Apps Indication:Low back pain Start:07-Dec-2022 Instruction Type:Patient Education Patient Instructions Indication:BMI 27.0-27.9,adult Start:15-Sep-2022 Instruction Type:Provider Instructions for Treatment How to Access Health Informa tion Online using Patient Portal and [employer] Indication:BMI 27.0-27.9,adult Start:15-Sep-2022 Instruction Type:Patient Education Patient Instructions Indication:BMI 27.0-27.9,adult Start:13-Mar-2022 Instruction Type:Provider Instructions for Treatment How to Access Health Informa tion Online using Patient Portal and [employer] Indication:BMI 27.0-27.9,adult Start:13-Mar-2022 Instruction Type:Patient Education Patient Instructions Indication:Current nonsmoker (Renamed from Current non-smoker) Start:12-Dec-2021 Instruction Type:Provider Instructions for Treatment How to Access Health Informa tion Online using Patient Portal and [employer] Apps Indication:Current nonsmoker (Renamed from Current non-smoker) Start:12-Dec-2021 Instruction Type:Patient Education Patient Instructions Indication:Hypercholesteremia Start:10-Oct-2021 Instruction Type:Provider Instructions for Treatment How to Access Health Informa tion Online using Patient Portal and [employer]rd [employer] Apps Indication:Hypercholesteremia Start:10-Oct-2021 Instruction Type:Patient Education Patient Instructions Indication:Anxiety Start:05-Sep-2021 Instruction Type:Provider Instructions for Treatment How to Access Health Informa tion Online using Patient Portal and [employer]rd [employer] Apps Indication:Anxiety Start:05-Sep-2021 Instruction Type:Patient Education Patient Instructions Indication:Stress reaction (Renamed from Acute reaction to stress) Start:27-Dec-2020 Instruction Type:Provider Instructions for Treatment How to Access Health Informa tion Online using Patient Portal and [employer] Apps Indication:Stress reaction (Renamed from Acute reaction to stress) Start:27-Dec-2020 Instruction Type:Patient Education Patient Instructions Indication:BMI 27.0-27.9,adult Start:25-Oct-2020 Instruction Type:Provider Instructions for Treatment How to Access Health Informa tion Online using Patient Portal and [employer] Apps Indication:BMI 27.0-27.9,adult Start:25-Oct-2020 Instruction Type:Patient Education Patient Instructions Indication:Hypercholesteremia Start:19-Apr-2020 Instruction Type:Provider Instructions for Treatment How to Access Health Informa tion Online using Patient Portal and [employer] Apps Indication:Hypercholesteremia Start:19-Apr-2020 Instruction Type:Patient Education How to access health informa tion online Indication:Encounter for well adult exam with abnormal findings Start:15-Dec-2019 Instruction Type:Patient Education How to access health informa tion online - Detail Indication:Encounter for well adult exam with abnormal findings Start:15-Dec-2019 Instruction Type:Patient Education Patient Instructions Indication:Encounter for well adult exam with abnormal findings Start:15-Dec-2019 Instruction Type:Provider Instructions for Treatment How to access health informa tion online Indication:Non-STEMI (non-ST elevated myocardial infarction) Start:28-Mar-2019 Instruction Type:Patient Education How to access health informa tion online - Detail Indication:Non-STEMI (non-ST elevated myocardial infarction) Start:28-Mar-2019 Instruction Type:Patient Education Patient Instructions Indication:Non-STEMI (non-ST elevated myocardial infarction) Start:28-Mar-2019 Instruction Type:Provider Instructions for Treatment How to access health informa tion online Indication:Current nonsmoker (Renamed from Current non-smoker) Start:18-Nov-2018 Instruction Type:Patient Education How to access health informa tion online - Detail Indication:Current nonsmoker (Renamed from Current non-smoker) Start:18-Nov-2018 Instruction Type:Patient Education Patient Instructions Indication:BMI 24.0-24.9, adult Start:18-Nov-2018 Instruction Type:Provider Instructions for Treatment How to access health informa tion online Indication:Non-STEMI (non-ST elevated myocardial infarction) Start:20-Sep-2018 Instruction Type:Patient Education How to access health informa tion online - Detail Indication:Non-STEMI (non-ST elevated myocardial infarction) Start:20-Sep-2018 Instruction Type:Patient Education Patient Instructions Indication:Non-STEMI (non-ST elevated myocardial infarction) Start:20-Sep-2018 Instruction Type:Provider Instructions for Treatment How to access health informa tion online Indication:Encounter for well adult exam with abnormal findings Start:08-Jun-2018 Instruction Type:Patient Education How to access health informa tion online - Detail Indication:Encounter for well adult exam with abnormal findings Start:08-Jun-2018 Instruction Type:Patient Education Patient Instructions Indication:Encounter for well adult exam with abnormal findings Start:08-Jun-2018 Instruction Type:Provider Instructions for Treatment How to access health informa tion online Indication:Non-STEMI (non-ST elevated myocardial infarction) Start:15-Mar-2018 Instruction Type:Patient Education How to access health informa tion online - Detail Indication:Non-STEMI (non-ST elevated myocardial infarction) Start:15-Mar-2018 Instruction Type:Patient Education Patient Instructions Indication:Non-STEMI (non-ST elevated myocardial infarction) Start:15-Mar-2018 Instruction Type:Provider Instructions for Treatment How to access health informa tion online Indication:Diverticulitis Start:08-Feb-2018 Instruction Type:Patient Education How to access health informa tion online - Detail Indication:Diverticulitis Start:08-Feb-2018 Instruction Type:Patient Education Patient Instructions Indication:Diverticulitis Start:08-Feb-2018 Instruction Type:Provider Instructions for Treatment How to access health informa tion online Indication:Encounter for well adult exam with abnormal findings Start:25-May-2017 Instruction Type:Patient Education How to access health informa tion online - Detail Indication:Encounter for well adult exam with abnormal findings Start:25-May-2017 Instruction Type:Patient Education Patient Instructions Indication:Encounter for well adult exam with abnormal findings Start:25-May-2017 Instruction Type:Provider Instructions for Treatment How to access health informa tion online Indication:BMI 24.0-24.9, adult Start:12-Jan-2017 Instruction Type:Patient Education How to access health informa tion online - Detail Indication:BMI 24.0-24.9, adult Start:12-Jan-2017 Instruction Type:Patient Education Patient Instructions Indication:BMI 24.0-24.9, adult Start:12-Jan-2017 Instruction Type:Provider Instructions for Treatment How to access health informa tion online Indication:BMI 26.0-26.9,adult Start:08-Sep-2016 Instruction Type:Patient Education How to access health informa tion online - Detail Indication:BMI 26.0-26.9,adult Start:08-Sep-2016 Instruction Type:Patient Education Patient Instructions Indication:BMI 26.0-26.9,adult Start:08-Sep-2016 Instruction Type:Provider Instructions for Treatment How to access health informa tion online Indication:Encounter for well adult exam with abnormal findings Start:05-May-2016 Instruction Type:Patient Education How to access health informa tion online - Detail Indication:Encounter for well adult exam with abnormal findings Start:05-May-2016 Instruction Type:Patient Education Patient Instructions Indication:Encounter for well adult exam with abnormal findings Start:05-May-2016 Instruction Type:Provider Instructions for Treatment How to access health informa tion online Indication:Acute cystitis without hematuria Start:23-Jul-2015 Instruction Type:Patient Education How to access health informa tion online - Detail Indication:Acute cystitis without hematuria Start:23-Jul-2015 Instruction Type:Patient Education Patient Instructions Indication:Acute cystitis without hematuria Start:23-Jul-2015 Instruction Type:Provider Instructions for Treatment How to access health informa tion online Indication:Thyroid nodule Start:18-Jun-2015 Instruction Type:Patient Education How to access health informa tion online - Detail Indication:Thyroid nodule Start:18-Jun-2015 Instruction Type:Patient Education Patient Instructions Indication:Thyroid nodule Start:18-Jun-2015 Instruction Type:Provider Instructions for Treatment How to access health informa tion online Indication:Well woman exam Start:16-Oct-2014 Instruction Type:Patient Education How to access health informa tion online - Detail Indication:Well woman exam Start:16-Oct-2014 Instruction Type:Patient Education Patient Instructions Indication:Well woman exam Start:16-Oct-2014 Instruction Type:Provider Instructions for Treatment [facility] Work Phone: progress note Author Elidia Torres [facility] Note Date/Time January 04, 2025 11:13am [facility] [address] [place] [address] OFFICE VISIT Date of Service: 01/04/25 MR#: [id number] Acct: [id number] Name: BASILIA CAMPUZANO Rep #: [id number] 1955 Provider: DANIEL Torres Age/Sex: 69/F Location: [facility] [place] Status: Signed HPI HPI History of Present Illness Details: Basilia Campuzano is a 69-year-old female who presents here today for a cardiovascular follow-up. In February 2018, she had an abnormal troponin, this was felt to be related to her tachycardia as her heart catheterization was normal. Patient underwent a Holter monitor on 12/20/2024 ordered by her PCP. This demonstrated normal sinus rhythm/sinus bradycardia with rare PVCs/PACs. Her average heart rate was noted to be 58 bpm. She did have a 28 beat run of SVT at190 bpm. From a cardiac standpoint, the patient is doing well. She does acknowledge palpitations-weekly. She describes this as a fast/racing sensation. She denies chest pain, pressure or heaviness. She denies SOB, Orthopnea, and PND. She does not have bleeding issues; no blood in urine, stool, or nosebleeds. She denies any decrease in energy level, myalgias, or claudication. She does not have edema, or sudden weight gain. She denies lightheadedness, dizziness, syncopal ornear syncopal episodes, and headaches. Intake Vital Signs 12/21/24 16:21 01/04/25 07:25 Height 5 ft 4 in 5 ft 4 in Weight: 171 lb BMI 29.3 BP 113/70 Blood Pressure Location Lt brachial Position Sitting Respiration 18 Pulse 50 L Pulse Source Monitor Pulse Oximetry (%) 94 Intake Visit Reasons: PER PCP/[facility]N [facility] Partner Integration Planner Required: No Is patient in pain?: No Allergies atorvastatin (From [employer]) Adverse Reaction (Verified 01/04/25 11:05) Other Medications ?Medication ?Instructions ?Recorded ?Confirmed ?Type multivitamin 1 ea PO DAILY 03/08/1801/04 History cholecalciferol (vitamin D3) 25 25 mcg PO DAILY 01/04/25 History mcg (1,000 unit) capsule levothyroxine 75 mcg tablet 88 mcg PO DAILY 07/04/21 0 01/04/25 History metoprolol tartrate 25 mg tablet 25 mg PO DAILY 01/04/25 History magnesium 250 mg tablet 250 mg PO DAILY 10/26/23 History ondansetron 4 mg disintegrating 4 mg PO Q8H PRN PRN Na usea #10 tabs 12/21/24 01/04/25 Rx tablet ezetimibe 10 mg tablet (Zetia) 10 mg PO QDAY 01/04/25 01/04/25 History Ejection fraction %: 65 Have you fallen in the past year?: Yes (tripped, dislocated shoulder x 2weeks ago) PFSH Medical History History of non-ST elevation myocardial infarction (NSTEMI) Wears glasses Anxiety Thyroid disease Back pain History of diverticulitis Non-smoker History of echocardiogram Cardiology follow-up encounter Hx of colonic polyp HTN (hypertension) History of Sarah thyroiditis History of left heart catheterization (LHC) (~03/09/18) Multiple thyroid nodules Mixed hyperlipidemia Non-ST elevation (NSTEMI) myocardial infarction Palpable abdominal aorta Abnormal cardiac enzyme level Palpitations Prediabetes Epigastric pain Syncope Surgical History Hx of dilation and curettage Hx of colonoscopy History of lobectomy of thyroid (~09/10/20) History of left knee surgery History of cholecystectomy Family History Father Heart problem Brother Diabetes Brother Diabetes Sister Diabetes Sister Paroxysmal supraventricular tachycardia Sister Tachycardia Mother Colon polyps Grandmother Stomach cancer Social History household members: spouse current occupational status: employed Smoking Status: Never smoker alcohol intake: never substance use type: does not use ROS Const Const: Negative for fatigue, weakness, headache(s) or frequent falls Eyes Eyes: Negative for blurry vision ENT ENT: Negative for headache(s), dizziness or Nosebleed/epistaxis Cardio Chest Pain: No Palpitations: Yes feels like its: fast Edema: None Muscle aches with walking: None Resp Respiratory: Negative for SOB with activity, SOB at rest or SOB orthopnea\SOB lying down GI GI: Negative nausea, vomiting, heartburn, bright, red blood in stools or black,tarry stools : Negative for hematuria Neuro Neuro: Negative for dizziness, lightheadedness, near syncope, syncope, frequent falls, headache(s), weakness or blurry vision Endo Endo: Negative for fatigue Cardiology Exam Const Appearance: cooperative and no acute distress Nutritional Appearance: average body habitus and overweight Orientation: alert and oriented x3 Head Head: normal to inspection Ears: hearing grossly normal bilaterally Nose: external nose normal Face and Sinus: face symmetric Eyes General: appearance normal, both eyes and all related structures Eyelids: eyelids normal Conjunctivae: conjunctivae normal Pupils: PERRL and pupil size EOM: EOM intact bilaterally Neck Neck: normal visual inspection Carotids: Negative bruit Chest Chest inspection: normal inspection of the chest and normal respiratory effort Auscultation: Bilateral: Clear to Auscultation Cardio Palpation: normal PMI Rate: bradycardic Rhythm: regular rhythm Heart sounds: S1 normal and S2 normal; Negative rub, gallop or murmur GI GI: normal to inspection and soft Neuro General: patient alert, patient oriented x3 and CN's II-XI intact bilaterally Skin Skin: no rashes or lesions noted Extremities Pulses: Normal: Right Posterior Tibial Pulse, Left Posterior Tibial Pulse, RightRadial Pulse and Left Radial Pulse Lower Extremity Edema: None: Bilateral Musculoskel Sling on right arm- dislocation of right shoulder due to fall Psych Psychological: normal affect Supplemental Info Supplemental Information Echocardiogram 03/09/2018: Left ventricular systolic function is normal. The estimated ejection fraction is 65 %. Apical false tendon noted. Mild (1+) eccentric mitral valve insufficiency. Trivial tricuspid valve insufficiency. Trivial pericardial effusion. There are no echocardiographic indications of cardiac tamponade. Right ventricular systolic pressure estimated to be 23 mmHg. No evidence for diastolic dysfunction. Cardiac catheterization 03/01/2018: PROCEDURE(S) PERFORMED [id number] RENAL ANGIO WITH HEART CATH CLINICAL PROFILE AND INDICATIONS Indications: ACS <= 24 hrs, Suspected CAD Heart Failure: None Stress/Imaging Stress/Image Study Performed: No Angina Classification Anginal Classification w/in 2 Weeks: No symptoms CAD Presentations: Other: Near Syncope; Epigastric Discomfort CONCLUSIONS Elevated Left Ventricular End Diastolic Pressure Normal LV size, wall motion,and systolic function LVEF: by LV gram 65 % Normal coronary arteries Abdominal Aorta: angiographically normal Renal Artieries: angiographically normal RECOMMENDATIONS Risk factor modification Medical therapy DESCRIPTION OF PROCEDURE The patient arrived to the procedure lab. The risks and benefits of the procedure as well as a full description of our services here and current unavailability of surgical backup were fully explained to the patient and/or their significant other prior to the catheterization. The Timeout was completed,verifying the correct patient and procedure. The patient's procedural site was prepped and draped in the usual fashion. Local anesthetic was given subcutaneously to right groin region with Lidocaine 2%. Using a modified Seldinger technique, arterial access was obtained via the right femoral artery, a 4Fr sheath was inserted Left Coronary Artery selective angiography was performed inmultiple views using a 4 Fr. JL5 catheter. Right Coronary Artery selective angiography was then performed in multiple views using a 4 Fr. 3DRC catheter. Left Ventriculography was performed in MARINA projection using a 4 Fr. Pigtail catheter. LV to AO pullback pressures were then recorded.The arterial sheath was pulled and manual compression applied until hemostasis is achieved. CORONARY ANGIOGRAPHY DOMINANCE: Right Dominant LEFT HEART ASSESSMENT Left Ventricular Ejection Fraction: by LV Gram 65 % Normal LV wall motion Elevated Left Ventricular End Diastolic Pressure LVEDP: 20 mmHg LEFT MAIN: Angiographically normal LEFT ANTERIOR DECENDING ARTERY: Angiographically normal CIRCUMFLEX ARTERY: Angiographically normal RIGHT CORONARY ARTERY: Angiographically normal VALVE FINDINGS: Normal Aortic Valve function Normal Mitral Valve function AORTIC ROOT: Angiographically normal PERIPHERAL FINDINGS: Abdominal Aorta: Angiographically Normal Right Renal Artery Angiographically normal Left Renal Artery Angiographically non-obstructive Labs: LDL Cholesterol, (0-130) 110 mg/dL HDL Cholesterol, (40-) 62 mg/dL Cholesterol, (200) 182 mg/dL Triglycerides, (-199) 49 mg/dL Diagnostics: Electrocardiogram Echocardiogram Cardiac Catheterization Chest X-Ray Past Visits: Cardiology Visit Today Assessment and Plan Assessment and Plan (1) Supraventricular tachycardia: Status: Acute Plan: Patient underwent a Holter monitor on 12/20/2024 ordered by her PCP. This demonstrated normal sinus rhythm/sinus bradycardia with rare PVCs/PACs. Her average heart rate was noted to be 58 bpm. She did have a 28 beat run of SVT at190 bpm. Would like to obtain a treadmill nuclear stress test, and echocardiogram to assess this. Depending on results, further recommendations will be made. At this time she will continue metoprolol tartrate 25 mg daily. (2) Palpitations: Status: Acute Plan: Patient does acknowledge palpitations, describing this as a racing sensation. Patient underwent a Holter monitor on 12/20/2024 ordered by her PCP. This demonstrated normal sinus rhythm/sinus bradycardia with rare PVCs/PACs. Her average heart rate was noted to be 58 bpm. She did have a 28 beat run of SVT at190 bpm. Would like to obtain a treadmill nuclear stress test, and echocardiogram to assess this. Depending on results, further recommendations will be made. At this time she will continue metoprolol tartrate 25 mg daily. (3) Mitral valve insufficiency: Status: Acute Plan: Patient has a history of mitral valve insufficiency. Would like to obtain an echocardiogram to assess this. Depending on results, further recommendations will be made. (4) Mixed hyperlipidemia: Status: Chronic Plan: Patient has a history of hyperlipidemia. Her PCP monitors this. She will continue Zetia 10 mg daily, along with aggressive risk factor and lifestyle modifications. A copy of her most recent lipid panel would be greatly appreciated for continuity of care. Orders: Orders Echo Complete Today I25.2 - Old myocardial infarction, I47.10 - Supraventricular tachycardia, unspecified, R94.31 - Abnormal electrocardiogram [ECG] [EKG] Plan Details Additional Comments: Patient will follow-up in 3 months, or sooner if needed. Thank you for allowing me to participate in the care of your patient. Please do not hesitate to call if any issues arise. This note was generated using a voice recognition system and there may be incorrect words, spelling, or punctuation that were not noted when reviewing the office note prior to saving. Portions of this documentation were copied and pasted from previous office visit notes to provide cohesive continuity of the history. The note has been reviewed, edited, and updated, as necessary. Follow Up: 3 Months (Cory) Coding Level of Care Code Off vis,est,level 4 Diagnoses Supraventricular tachycardia I47.10 Palpitations R00.2 Mitral valve insufficiency I34.0 Mixed hyperlipidemia E78.2 Coding Level of Care Code Off vis,est,level 4 Diagnoses Supraventricular tachycardia I47.10 Palpitations R00.2 Mitral valve insufficiency I34.0 Mixed hyperlipidemia E78.2 Clinical Quality Measures Falls Risk Screening/Assistive Devices Have you fallen in the past year?: Yes (tripped, dislocated shoulder x 2weeks ago) Cardiac Ejection fraction %: 65 01/04/25 1244 <Electronically signed by Elidia NIETOC> Date _ Elidia NIETOC Cosigner Signature: Date (if applicable) CC: Dr. Nehal Vu MD ~ [facility] Work Phone: Reason for referral (narrative)No reason for referral information availableWLicking [facility] Work Phone: Family History No Family History Records FoundUnknown Family Member Name Dates Details Brother 1 Comments:hypercholesterolemi a, type II diabetes, HTN Status:Active Brother 2 Comments:hypercholesterolemi a, type II diabetes, HTN Status:Active Brother 3 Comments:depression Status:Active Brother 4 Comments:hx. kidney stones Status:Active Father Comments:Collagens Karina's granulomatous Disease age 64 Status:Active First Degree Relatives Comments:paternal side cardi ovascular disease maternal side colon cancerhad cousins that had stomach cancer (moms side age 35) cousin (maternal /paternal) male cancer in early 50's (not know what kind) both cousins Status:Active maternal aunt breast cancer 60 yo Status:Active Maternal Grandfather Comments:PE age 76 Status:Active Maternal Grandmother Comments:stomach cancer at a ge 68, HTN, type II diabetes Status:Active Mother Comments:arthritis, HTN Status:Active Paternal Grandfather Comments: Status:Active Paternal Grandmother Comments:[place] age 76 Status:Active Sister 1 Comments:borderline HTN Status:Active Sister 2 Comments:irregular heart conor t (on medication) Status:Active Sister 3 Comments:healthy Status:Active Sister 4 Comments:healthy Status:Active Unknown Family Member Name Dates Details Brother 1 Comments:hypercholesterolemi a, type II diabetes, HTN Status:Active Brother 2 Comments:hypercholesterolemi a, type II diabetes, HTN Status:Active Brother 3 Comments:depression Status:Active Brother 4 Comments:hx. kidney stones Status:Active Father Comments:Collagens Karina's granulomatous Disease age 64 Status:Active First Degree Relatives Comments:paternal side cardi ovascular disease maternal side colon cancerhad cousins that had stomach cancer (moms side age 35) cousin (maternal /paternal) male cancer in early 50's (not know what kind) both cousins Status:Active maternal aunt breast cancer 60 yo Status:Active Maternal Grandfather Comments:PE age 76 Status:Active Maternal Grandmother Comments:stomach cancer at a ge 68, HTN, type II diabetes Status:Active Mother Comments:arthritis, HTN Status:Active Paternal Grandfather Comments: Status:Active Paternal Grandmother Comments:[place] age 76 Status:Active Sister 1 Comments:borderline HTN Status:Active Sister 2 Comments:irregular heart conor t (on medication) Status:Active Sister 3 Comments:healthy Status:Active Sister 4 Comments:healthy Status:Active Unknown Family Member Name Dates Details Brother 1 Comments:hypercholesterolemi a, type II diabetes, HTN Status:Active Brother 2 Comments:hypercholesterolemi a, type II diabetes, HTN Status:Active Brother 3 Comments:depression Status:Active Brother 4 Comments:hx. kidney stones Status:Active Father Comments:Collagens Karina's granulomatous Disease age 64 Status:Active First Degree Relatives Comments:paternal side cardi ovascular disease maternal side colon cancerhad cousins that had stomach cancer (moms side age 35) cousin (maternal /paternal) male cancer in early 50's (not know what kind) both cousins Status:Active maternal aunt breast cancer 60 yo Status:Active Maternal Grandfather Comments:PE age 76 Status:Active Maternal Grandmother Comments:stomach cancer at a ge 68, HTN, type II diabetes Status:Active Mother Comments:arthritis, HTN Status:Active Paternal Grandfather Comments: Status:Active Paternal Grandmother Comments:[place] age 76 Status:Active Sister 1 Comments:borderline HTN Status:Active Sister 2 Comments:irregular heart conor t (on medication) Status:Active Sister 3 Comments:healthy Status:Active Sister 4 Comments:healthy Status:Active Unknown Family Member Name Dates Details Brother 1 Comments:hypercholesterolemi a, type II diabetes, HTN Status:Active Brother 2 Comments:hypercholesterolemi a, type II diabetes, HTN Status:Active Brother 3 Comments:depression Status:Active Brother 4 Comments:hx. kidney stones Status:Active Father Comments:Collagens Karina's granulomatous Disease age 64 Status:Active First Degree Relatives Comments:paternal side cardi ovascular disease maternal side colon cancerhad cousins that had stomach cancer (moms side age 35) cousin (maternal /paternal) male cancer in early 50's (not know what kind) both cousins Status:Active maternal aunt breast cancer 60 yo Status:Active Maternal Grandfather Comments:PE age 76 Status:Active Maternal Grandmother Comments:stomach cancer at a ge 68, HTN, type II diabetes Status:Active Mother Comments:arthritis, HTN Status:Active Paternal Grandfather Comments: Status:Active Paternal Grandmother Comments:[place] age 76 Status:Active Sister 1 Comments:borderline HTN Status:Active Sister 2 Comments:irregular heart conor t (on medication) Status:Active Sister 3 Comments:healthy Status:Active Sister 4 Comments:healthy Status:Active Unknown Family Member Name Dates Details Brother 1 Comments:hypercholesterolemi a, type II diabetes, HTN Status:Active Brother 2 Comments:hypercholesterolemi a, type II diabetes, HTN Status:Active Brother 3 Comments:depression Status:Active Brother 4 Comments:hx. kidney stones Status:Active Father Comments:Collagens Karina's granulomatous Disease age 64 Status:Active First Degree Relatives Comments:paternal side cardi ovascular disease maternal side colon cancerhad cousins that had stomach cancer (moms side age 35) cousin (maternal /paternal) male cancer in early 50's (not know what kind) both cousins Status:Active maternal aunt breast cancer 60 yo Status:Active Maternal Grandfather Comments:PE age 76 Status:Active Maternal Grandmother Comments:stomach cancer at a ge 68, HTN, type II diabetes Status:Active Mother Comments:arthritis, HTN Status:Active Paternal Grandfather Comments: Status:Active Paternal Grandmother Comments:[place] age 76 Status:Active Sister 1 Comments:borderline HTN Status:Active Sister 2 Comments:irregular heart conor t (on medication) Status:Active Sister 3 Comments:healthy Status:Active Sister 4 Comments:healthy Status:Active Unknown Family Member Name Dates Details Brother 1 Comments:hypercholesterolemi a, type II diabetes, HTN Status:Active Brother 2 Comments:hypercholesterolemi a, type II diabetes, HTN Status:Active Brother 3 Comments:depression Status:Active Brother 4 Comments:hx. kidney stones Status:Active Father Comments:Collagens Karina's granulomatous Disease age 64 Status:Active First Degree Relatives Comments:paternal side cardi ovascular disease maternal side colon cancerhad cousins that had stomach cancer (moms side age 35) cousin (maternal /paternal) male cancer in early 50's (not know what kind) both cousins Status:Active maternal aunt breast cancer 60 yo Status:Active Maternal Grandfather Comments:PE age 76 Status:Active Maternal Grandmother Comments:stomach cancer at a ge 68, HTN, type II diabetes Status:Active Mother Comments:arthritis, HTN Status:Active Paternal Grandfather Comments: Status:Active Paternal Grandmother Comments:[place] age 76 Status:Active Sister 1 Comments:borderline HTN Status:Active Sister 2 Comments:irregular heart conor t (on medication) Status:Active Sister 3 Comments:healthy Status:Active Sister 4 Comments:healthy Status:Active Unknown Family Member Name Dates Details Brother 1 Comments:hypercholesterolemi a, type II diabetes, HTN Status:Active Brother 2 Comments:hypercholesterolemi a, type II diabetes, HTN Status:Active Brother 3 Comments:depression Status:Active Brother 4 Comments:hx. kidney stones Status:Active Father Comments:Collagens Karina's granulomatous Disease age 64 Status:Active First Degree Relatives Comments:paternal side cardi ovascular disease maternal side colon cancerhad cousins that had stomach cancer (moms side age 35) cousin (maternal /paternal) male cancer in early 50's (not know what kind) both cousins Status:Active maternal aunt breast cancer 60 yo Status:Active Maternal Grandfather Comments:PE age 76 Status:Active Maternal Grandmother Comments:stomach cancer at a ge 68, HTN, type II diabetes Status:Active Mother Comments:arthritis, HTN Status:Active Paternal Grandfather Comments: Status:Active Paternal Grandmother Comments:[place] age 76 Status:Active Sister 1 Comments:borderline HTN Status:Active Sister 2 Comments:irregular heart conor t (on medication) Status:Active Sister 3 Comments:healthy Status:Active Sister 4 Comments:healthy Status:Active Unknown Family Member Name Dates Details Brother 1 Comments:hypercholesterolemi a, type II diabetes, HTN Status:Active Brother 2 Comments:hypercholesterolemi a, type II diabetes, HTN Status:Active Brother 3 Comments:depression Status:Active Brother 4 Comments:hx. kidney stones Status:Active Father Comments:Collagens Karina's granulomatous Disease age 64 Status:Active First Degree Relatives Comments:paternal side cardi ovascular disease maternal side colon cancerhad cousins that had stomach cancer (moms side age 35) cousin (maternal /paternal) male cancer in early 50's (not know what kind) both cousins Status:Active maternal aunt breast cancer 60 yo Status:Active Maternal Grandfather Comments:PE age 76 Status:Active Maternal Grandmother Comments:stomach cancer at a ge 68, HTN, type II diabetes Status:Active Mother Comments:arthritis, HTN Status:Active Paternal Grandfather Comments: Status:Active Paternal Grandmother Comments:[place] age 76 Status:Active Sister 1 Comments:borderline HTN Status:Active Sister 2 Comments:irregular heart conor t (on medication) Status:Active Sister 3 Comments:healthy Status:Active Sister 4 Comments:healthy Status:Active Unknown Family Member Name Dates Details Brother 1 Comments:hypercholesterolemi a, type II diabetes, HTN Status:Active Brother 2 Comments:hypercholesterolemi a, type II diabetes, HTN Status:Active Brother 3 Comments:depression Status:Active Brother 4 Comments:hx. kidney stones Status:Active Father Comments:Collagens Karina's granulomatous Disease age 64 Status:Active First Degree Relatives Comments:paternal side cardi ovascular disease maternal side colon cancerhad cousins that had stomach cancer (moms side age 35) cousin (maternal /paternal) male cancer in early 50's (not know what kind) both cousins Status:Active maternal aunt breast cancer 60 yo Status:Active Maternal Grandfather Comments:PE age 76 Status:Active Maternal Grandmother Comments:stomach cancer at a ge 68, HTN, type II diabetes Status:Active Mother Comments:arthritis, HTN Status:Active Paternal Grandfather Comments: Status:Active Paternal Grandmother Comments:[place] age 76 Status:Active Sister 1 Comments:borderline HTN Status:Active Sister 2 Comments:irregular heart conor t (on medication) Status:Active Sister 3 Comments:healthy Status:Active Sister 4 Comments:healthy Status:Active Unknown Family Member Name Dates Details Brother 1 Comments:hypercholesterolemi a, type II diabetes, HTN Status:Active Brother 2 Comments:hypercholesterolemi a, type II diabetes, HTN Status:Active Brother 3 Comments:depression Status:Active Brother 4 Comments:hx. kidney stones Status:Active Father Comments:Collagens Karina's granulomatous Disease age 64 Status:Active First Degree Relatives Comments:paternal side cardi ovascular disease maternal side colon cancerhad cousins that had stomach cancer (moms side age 35) cousin (maternal /paternal) male cancer in early 50's (not know what kind) both cousins Status:Active maternal aunt breast cancer 60 yo Status:Active Maternal Grandfather Comments:PE age 76 Status:Active Maternal Grandmother Comments:stomach cancer at a ge 68, HTN, type II diabetes Status:Active Mother Comments:arthritis, HTN Status:Active Paternal Grandfather Comments: Status:Active Paternal Grandmother Comments:[place] age 76 Status:Active Sister 1 Comments:borderline HTN Status:Active Sister 2 Comments:irregular heart conor t (on medication) Status:Active Sister 3 Comments:healthy Status:Active Sister 4 Comments:healthy Status:Active Unknown Family Member Name Dates Details Brother 1 Comments:hypercholesterolemi a, type II diabetes, HTN Status:Active Brother 2 Comments:hypercholesterolemi a, type II diabetes, HTN Status:Active Brother 3 Comments:depression Status:Active Brother 4 Comments:hx. kidney stones Status:Active Father Comments:Collagens Karina's granulomatous Disease age 64 Status:Active First Degree Relatives Comments:paternal side cardi ovascular disease maternal side colon cancerhad cousins that had stomach cancer (moms side age 35) cousin (maternal /paternal) male cancer in early 50's (not know what kind) both cousins Status:Active maternal aunt breast cancer 60 yo Status:Active Maternal Grandfather Comments:PE age 76 Status:Active Maternal Grandmother Comments:stomach cancer at a ge 68, HTN, type II diabetes Status:Active Mother Comments:arthritis, HTN Status:Active Paternal Grandfather Comments: Status:Active Paternal Grandmother Comments:[place] age 76 Status:Active Sister 1 Comments:borderline HTN Status:Active Sister 2 Comments:irregular heart conor t (on medication) Status:Active Sister 3 Comments:healthy Status:Active Sister 4 Comments:healthy Status:Active Unknown Family Member Name Dates Details Brother 1 Comments:hypercholesterolemi a, type II diabetes, HTN Status:Active Brother 2 Comments:hypercholesterolemi a, type II diabetes, HTN Status:Active Brother 3 Comments:depression Status:Active Brother 4 Comments:hx. kidney stones Status:Active Father Comments:Collagens Karina's granulomatous Disease age 64 Status:Active First Degree Relatives Comments:paternal side cardi ovascular disease maternal side colon cancerhad cousins that had stomach cancer (moms side age 35) cousin (maternal /paternal) male cancer in early 50's (not know what kind) both cousins Status:Active maternal aunt breast cancer 60 yo Status:Active Maternal Grandfather Comments:PE age 76 Status:Active Maternal Grandmother Comments:stomach cancer at a ge 68, HTN, type II diabetes Status:Active Mother Comments:arthritis, HTN Status:Active Paternal Grandfather Comments: Status:Active Paternal Grandmother Comments:[place] age 76 Status:Active Sister 1 Comments:borderline HTN Status:Active Sister 2 Comments:irregular heart conor t (on medication) Status:Active Sister 3 Comments:healthy Status:Active Sister 4 Comments:healthy Status:Active Unknown Family Member Name Dates Details Brother 1 Comments:hypercholesterolemi a, type II diabetes, HTN Status:Active Brother 2 Comments:hypercholesterolemi a, type II diabetes, HTN Status:Active Brother 3 Comments:depression Status:Active Brother 4 Comments:hx. kidney stones Status:Active Father Comments:Collagens Karina's granulomatous Disease age 64 Status:Active First Degree Relatives Comments:paternal side cardi ovascular disease maternal side colon cancerhad cousins that had stomach cancer (moms side age 35) cousin (maternal /paternal) male cancer in early 50's (not know what kind) both cousins Status:Active maternal aunt breast cancer 60 yo Status:Active Maternal Grandfather Comments:PE age 76 Status:Active Maternal Grandmother Comments:stomach cancer at a ge 68, HTN, type II diabetes Status:Active Mother Comments:arthritis, HTN Status:Active Paternal Grandfather Comments: Status:Active Paternal Grandmother Comments:[place] age 76 Status:Active Sister 1 Comments:borderline HTN Status:Active Sister 2 Comments:irregular heart conor t (on medication) Status:Active Sister 3 Comments:healthy Status:Active Sister 4 Comments:healthy Status:Active Unknown Family Member Name Dates Details Brother 1 Comments:hypercholesterolemi a, type II diabetes, HTN Status:Active Brother 2 Comments:hypercholesterolemi a, type II diabetes, HTN Status:Active Brother 3 Comments:depression Status:Active Brother 4 Comments:hx. kidney stones Status:Active Father Comments:Collagens Karina's granulomatous Disease age 64 Status:Active First Degree Relatives Comments:paternal side cardi ovascular disease maternal side colon cancerhad cousins that had stomach cancer (moms side age 35) cousin (maternal /paternal) male cancer in early 50's (not know what kind) both cousins Status:Active maternal aunt breast cancer 60 yo Status:Active Maternal Grandfather Comments:PE age 76 Status:Active Maternal Grandmother Comments:stomach cancer at a ge 68, HTN, type II diabetes Status:Active Mother Comments:arthritis, HTN Status:Active Paternal Grandfather Comments: Status:Active Paternal Grandmother Comments:[place] age 76 Status:Active Sister 1 Comments:borderline HTN Status:Active Sister 2 Comments:irregular heart conor t (on medication) Status:Active Sister 3 Comments:healthy Status:Active Sister 4 Comments:healthy Status:Active Unknown Family Member Name Dates Details Brother 1 Comments:hypercholesterolemi a, type II diabetes, HTN Status:Active Brother 2 Comments:hypercholesterolemi a, type II diabetes, HTN Status:Active Brother 3 Comments:depression Status:Active Brother 4 Comments:hx. kidney stones Status:Active Father Comments:Collagens Karina's granulomatous Disease age 64 Status:Active First Degree Relatives Comments:paternal side cardi ovascular disease maternal side colon cancerhad cousins that had stomach cancer (moms side age 35) cousin (maternal /paternal) male cancer in early 50's (not know what kind) both cousins Status:Active maternal aunt breast cancer 60 yo Status:Active Maternal Grandfather Comments:PE age 76 Status:Active Maternal Grandmother Comments:stomach cancer at a ge 68, HTN, type II diabetes Status:Active Mother Comments:arthritis, HTN Status:Active Paternal Grandfather Comments: Status:Active Paternal Grandmother Comments:[place] age 76 Status:Active Sister 1 Comments:borderline HTN Status:Active Sister 2 Comments:irregular heart conor t (on medication) Status:Active Sister 3 Comments:healthy Status:Active Sister 4 Comments:healthy Status:Active Unknown Family Member Name Dates Details Brother 1 Comments:hypercholesterolemi a, type II diabetes, HTN Status:Active Brother 2 Comments:hypercholesterolemi a, type II diabetes, HTN Status:Active Brother 3 Comments:depression Status:Active Brother 4 Comments:hx. kidney stones Status:Active Father Comments:Collagens Karina's granulomatous Disease age 64 Status:Active First Degree Relatives Comments:paternal side cardi ovascular disease maternal side colon cancerhad cousins that had stomach cancer (moms side age 35) cousin (maternal /paternal) male cancer in early 50's (not know what kind) both cousins Status:Active maternal aunt breast cancer 60 yo Status:Active Maternal Grandfather Comments:PE age 76 Status:Active Maternal Grandmother Comments:stomach cancer at a ge 68, HTN, type II diabetes Status:Active Mother Comments:arthritis, HTN Status:Active Paternal Grandfather Comments: Status:Active Paternal Grandmother Comments:[place] age 76 Status:Active Sister 1 Comments:borderline HTN Status:Active Sister 2 Comments:irregular heart conor t (on medication) Status:Active Sister 3 Comments:healthy Status:Active Sister 4 Comments:healthy Status:Active Unknown Family Member Name Dates Details Brother 1 Comments:hypercholesterolemi a, type II diabetes, HTN Status:Active Brother 2 Comments:hypercholesterolemi a, type II diabetes, HTN Status:Active Brother 3 Comments:depression Status:Active Brother 4 Comments:hx. kidney stones Status:Active Father Comments:Collagens Karina's granulomatous Disease age 64 Status:Active First Degree Relatives Comments:paternal side cardi ovascular disease maternal side colon cancerhad cousins that had stomach cancer (moms side age 35) cousin (maternal /paternal) male cancer in early 50's (not know what kind) both cousins Status:Active maternal aunt breast cancer 60 yo Status:Active Maternal Grandfather Comments:PE age 76 Status:Active Maternal Grandmother Comments:stomach cancer at a ge 68, HTN, type II diabetes Status:Active Mother Comments:arthritis, HTN Status:Active Paternal Grandfather Comments: Status:Active Paternal Grandmother Comments:[place] age 76 Status:Active Sister 1 Comments:borderline HTN Status:Active Sister 2 Comments:irregular heart conor t (on medication) Status:Active Sister 3 Comments:healthy Status:Active Sister 4 Comments:healthy Status:Active Unknown Family Member Name Dates Details Brother 1 Comments:hypercholesterolemi a, type II diabetes, HTN Status:Active Brother 2 Comments:hypercholesterolemi a, type II diabetes, HTN Status:Active Brother 3 Comments:depression Status:Active Brother 4 Comments:hx. kidney stones Status:Active Father Comments:Collagens Karina's granulomatous Disease age 64 Status:Active First Degree Relatives Comments:paternal side cardi ovascular disease maternal side colon cancerhad cousins that had stomach cancer (moms side age 35) cousin (maternal /paternal) male cancer in early 50's (not know what kind) both cousins Status:Active maternal aunt breast cancer 60 yo Status:Active Maternal Grandfather Comments:PE age 76 Status:Active Maternal Grandmother Comments:stomach cancer at a ge 70, HTN, type II diabetes Status:Active Mother Comments:arthritis, HTN Status:Active Paternal Grandfather Comments: Status:Active Paternal Grandmother Comments:[place] age 76 Status:Active Sister 1 Comments:borderline HTN Status:Active Sister 2 Comments:irregular heart conor t (on medication) Status:Active Sister 3 Comments:healthy Status:Active Sister 4 Comments:healthy Status:Active Unknown Family Member Name Dates Details Brother 1 Comments:hypercholesterolemi a, type II diabetes, HTN Status:Active Brother 2 Comments:hypercholesterolemi a, type II diabetes, HTN Status:Active Brother 3 Comments:depression Status:Active Brother 4 Comments:hx. kidney stones Status:Active Father Comments:Collagens Karina's granulomatous Disease age 64 Status:Active First Degree Relatives Comments:paternal side cardi ovascular disease maternal side colon cancerhad cousins that had stomach cancer (moms side age 35) cousin (maternal /paternal) male cancer in early 50's (not know what kind) both cousins Status:Active maternal aunt breast cancer 60 yo Status:Active Maternal Grandfather Comments:PE age 76 Status:Active Maternal Grandmother Comments:stomach cancer at a ge 68, HTN, type II diabetes Status:Active Mother Comments:arthritis, HTN Status:Active Paternal Grandfather Comments: Status:Active Paternal Grandmother Comments:[place] age 76 Status:Active Sister 1 Comments:borderline HTN Status:Active Sister 2 Comments:irregular heart conor t (on medication) Status:Active Sister 3 Comments:healthy Status:Active Sister 4 Comments:healthy Status:Active Unknown Family Member Name Dates Details Brother 1 Comments:hypercholesterolemi a, type II diabetes, HTN Status:Active Brother 2 Comments:hypercholesterolemi a, type II diabetes, HTN Status:Active Brother 3 Comments:depression Status:Active Brother 4 Comments:hx. kidney stones Status:Active Father Comments:Collagens Karina's granulomatous Disease age 64 Status:Active First Degree Relatives Comments:paternal side cardi ovascular disease maternal side colon cancerhad cousins that had stomach cancer (moms side age 35) cousin (maternal /paternal) male cancer in early 50's (not know what kind) both cousins Status:Active maternal aunt breast cancer 60 yo Status:Active Maternal Grandfather Comments:PE age 76 Status:Active Maternal Grandmother Comments:stomach cancer at a ge 68, HTN, type II diabetes Status:Active Mother Comments:arthritis, HTN Status:Active Paternal Grandfather Comments: Status:Active Paternal Grandmother Comments:[place] age 76 Status:Active Sister 1 Comments:borderline HTN Status:Active Sister 2 Comments:irregular heart conor t (on medication) Status:Active Sister 3 Comments:healthy Status:Active Sister 4 Comments:healthy Status:Active Unknown Family Member Name Dates Details Brother 1 Comments:hypercholesterolemi a, type II diabetes, HTN Status:Active Brother 2 Comments:hypercholesterolemi a, type II diabetes, HTN Status:Active Brother 3 Comments:depression Status:Active Brother 4 Comments:hx. kidney stones Status:Active Father Comments:Collagens Karina's granulomatous Disease age 64 Status:Active First Degree Relatives Comments:paternal side cardi ovascular disease maternal side colon cancerhad cousins that had stomach cancer (moms side age 35) cousin (maternal /paternal) male cancer in early 50's (not know what kind) both cousins Status:Active maternal aunt breast cancer 60 yo Status:Active Maternal Grandfather Comments:PE age 76 Status:Active Maternal Grandmother Comments:stomach cancer at a ge 68, HTN, type II diabetes Status:Active Mother Comments:arthritis, HTN Status:Active Paternal Grandfather Comments: Status:Active Paternal Grandmother Comments:[place] age 76 Status:Active Sister 1 Comments:borderline HTN Status:Active Sister 2 Comments:irregular heart conor t (on medication) Status:Active Sister 3 Comments:healthy Status:Active Sister 4 Comments:healthy Status:Active Unknown Family Member Name Dates Details Brother 1 Comments:hypercholesterolemi a, type II diabetes, HTN Status:Active Brother 2 Comments:hypercholesterolemi a, type II diabetes, HTN Status:Active Brother 3 Comments:depression Status:Active Brother 4 Comments:hx. kidney stones Status:Active Father Comments:Collagens Karina's granulomatous Disease age 64 Status:Active First Degree Relatives Comments:paternal side cardi ovascular disease maternal side colon cancerhad cousins that had stomach cancer (moms side age 35) cousin (maternal /paternal) male cancer in early 50's (not know what kind) both cousins Status:Active maternal aunt breast cancer 60 yo Status:Active Maternal Grandfather Comments:PE age 76 Status:Active Maternal Grandmother Comments:stomach cancer at a ge 68, HTN, type II diabetes Status:Active Mother Comments:arthritis, HTN Status:Active Paternal Grandfather Comments: Status:Active Paternal Grandmother Comments:[place] age 76 Status:Active Sister 1 Comments:borderline HTN Status:Active Sister 2 Comments:irregular heart conor t (on medication) Status:Active Sister 3 Comments:healthy Status:Active Sister 4 Comments:healthy Status:Active Unknown Family Member Name Dates Details Brother 1 Comments:hypercholesterolemi a, type II diabetes, HTN Status:Active Brother 2 Comments:hypercholesterolemi a, type II diabetes, HTN Status:Active Brother 3 Comments:depression Status:Active Brother 4 Comments:hx. kidney stones Status:Active Father Comments:Collagens Karina's granulomatous Disease age 64 Status:Active First Degree Relatives Comments:paternal side cardi ovascular disease maternal side colon cancerhad cousins that had stomach cancer (moms side age 35) cousin (maternal /paternal) male cancer in early 50's (not know what kind) both cousins Status:Active maternal aunt breast cancer 60 yo Status:Active Maternal Grandfather Comments:PE age 76 Status:Active Maternal Grandmother Comments:stomach cancer at a ge 68, HTN, type II diabetes Status:Active Mother Comments:arthritis, HTN Status:Active Paternal Grandfather Comments: Status:Active Paternal Grandmother Comments:[place] age 76 Status:Active Sister 1 Comments:borderline HTN Status:Active Sister 2 Comments:irregular heart conor t (on medication) Status:Active Sister 3 Comments:healthy Status:Active Sister 4 Comments:healthy Status:Active Unknown Family Member Name Dates Details Brother 1 Comments:hypercholesterolemi a, type II diabetes, HTN Status:Active Brother 2 Comments:hypercholesterolemi a, type II diabetes, HTN Status:Active Brother 3 Comments:depression Status:Active Brother 4 Comments:hx. kidney stones Status:Active Father Comments:Collagens Karina's granulomatous Disease age 64 Status:Active First Degree Relatives Comments:paternal side cardi ovascular disease maternal side colon cancerhad cousins that had stomach cancer (moms side age 35) cousin (maternal /paternal) male cancer in early 50's (not know what kind) both cousins Status:Active maternal aunt breast cancer 60 yo Status:Active Maternal Grandfather Comments:PE age 76 Status:Active Maternal Grandmother Comments:stomach cancer at a ge 68, HTN, type II diabetes Status:Active Mother Comments:arthritis, HTN Status:Active Paternal Grandfather Comments: Status:Active Paternal Grandmother Comments:[place] age 76 Status:Active Sister 1 Comments:borderline HTN Status:Active Sister 2 Comments:irregular heart conor t (on medication) Status:Active Sister 3 Comments:healthy Status:Active Sister 4 Comments:healthy Status:Active Unknown Family Member Name Dates Details Brother 1 Comments:hypercholesterolemi a, type II diabetes, HTN Status:Active Brother 2 Comments:hypercholesterolemi a, type II diabetes, HTN Status:Active Brother 3 Comments:depression Status:Active Brother 4 Comments:hx. kidney stones Status:Active Father Comments:Collagens Karina's granulomatous Disease age 64 Status:Active First Degree Relatives Comments:paternal side cardi ovascular disease maternal side colon cancerhad cousins that had stomach cancer (moms side age 35) cousin (maternal /paternal) male cancer in early 50's (not know what kind) both cousins Status:Active maternal aunt breast cancer 60 yo Status:Active Maternal Grandfather Comments:PE age 76 Status:Active Maternal Grandmother Comments:stomach cancer at a ge 68, HTN, type II diabetes Status:Active Mother Comments:arthritis, HTN Status:Active Paternal Grandfather Comments: Status:Active Paternal Grandmother Comments:[place] age 76 Status:Active Sister 1 Comments:borderline HTN Status:Active Sister 2 Comments:irregular heart conor t (on medication) Status:Active Sister 3 Comments:healthy Status:Active Sister 4 Comments:healthy Status:Active Unknown Family Member Name Dates Details Brother 1 Comments:hypercholesterolemi a, type II diabetes, HTN Status:Active Brother 2 Comments:hypercholesterolemi a, type II diabetes, HTN Status:Active Brother 3 Comments:depression Status:Active Brother 4 Comments:hx. kidney stones Status:Active Father Comments:Collagens Karina's granulomatous Disease age 64 Status:Active First Degree Relatives Comments:paternal side cardi ovascular disease maternal side colon cancerhad cousins that had stomach cancer (moms side age 35) cousin (maternal /paternal) male cancer in early 50's (not know what kind) both cousins Status:Active maternal aunt breast cancer 60 yo Status:Active Maternal Grandfather Comments:PE age 76 Status:Active Maternal Grandmother Comments:stomach cancer at a ge 68, HTN, type II diabetes Status:Active Mother Comments:arthritis, HTN Status:Active Paternal Grandfather Comments: Status:Active Paternal Grandmother Comments:[place] age 76 Status:Active Sister 1 Comments:borderline HTN Status:Active Sister 2 Comments:irregular heart conor t (on medication) Status:Active Sister 3 Comments:healthy Status:Active Sister 4 Comments:healthy Status:Active Unknown Family Member Name Dates Details Brother 1 Comments:hypercholesterolemi a, type II diabetes, HTN Status:Active Brother 2 Comments:hypercholesterolemi a, type II diabetes, HTN Status:Active Brother 3 Comments:depression Status:Active Brother 4 Comments:hx. kidney stones Status:Active Father Comments:Collagens Karina's granulomatous Disease age 64 Status:Active First Degree Relatives Comments:paternal side cardi ovascular disease maternal side colon cancerhad cousins that had stomach cancer (moms side age 35) cousin (maternal /paternal) male cancer in early 50's (not know what kind) both cousins Status:Active maternal aunt breast cancer 60 yo Status:Active Maternal Grandfather Comments:PE age 76 Status:Active Maternal Grandmother Comments:stomach cancer at a ge 68, HTN, type II diabetes Status:Active Mother Comments:arthritis, HTN Status:Active Paternal Grandfather Comments: Status:Active Paternal Grandmother Comments:[place] age 76 Status:Active Sister 1 Comments:borderline HTN Status:Active Sister 2 Comments:irregular heart conor t (on medication) Status:Active Sister 3 Comments:healthy Status:Active Sister 4 Comments:healthy Status:Active Unknown Family Member Name Dates Details Brother 1 Comments:hypercholesterolemi a, type II diabetes, HTN Status:Active Brother 2 Comments:hypercholesterolemi a, type II diabetes, HTN Status:Active Brother 3 Comments:depression Status:Active Brother 4 Comments:hx. kidney stones Status:Active Father Comments:Collagens Karina's granulomatous Disease age 64 Status:Active First Degree Relatives Comments:paternal side cardi ovascular disease maternal side colon cancerhad cousins that had stomach cancer (moms side age 35) cousin (maternal /paternal) male cancer in early 50's (not know what kind) both cousins Status:Active maternal aunt breast cancer 60 yo Status:Active Maternal Grandfather Comments:PE age 76 Status:Active Maternal Grandmother Comments:stomach cancer at a ge 68, HTN, type II diabetes Status:Active Mother Comments:arthritis, HTN Status:Active Paternal Grandfather Comments: Status:Active Paternal Grandmother Comments:[place] age 76 Status:Active Sister 1 Comments:borderline HTN Status:Active Sister 2 Comments:irregular heart conor t (on medication) Status:Active Sister 3 Comments:healthy Status:Active Sister 4 Comments:healthy Status:Active Unknown Family Member Name Dates Details Brother 1 Comments:hypercholesterolemi a, type II diabetes, HTN Status:Active Brother 2 Comments:hypercholesterolemi a, type II diabetes, HTN Status:Active Brother 3 Comments:depression Status:Active Brother 4 Comments:hx. kidney stones Status:Active Father Comments:Collagens Karina's granulomatous Disease age 64 Status:Active First Degree Relatives Comments:paternal side cardi ovascular disease maternal side colon cancerhad cousins that had stomach cancer (moms side age 35) cousin (maternal /paternal) male cancer in early 50's (not know what kind) both cousins Status:Active maternal aunt breast cancer 60 yo Status:Active Maternal Grandfather Comments:PE age 76 Status:Active Maternal Grandmother Comments:stomach cancer at a ge 68, HTN, type II diabetes Status:Active Mother Comments:arthritis, HTN Status:Active Paternal Grandfather Comments: Status:Active Paternal Grandmother Comments:[place] age 76 Status:Active Sister 1 Comments:borderline HTN Status:Active Sister 2 Comments:irregular heart conor t (on medication) Status:Active Sister 3 Comments:healthy Status:Active Sister 4 Comments:healthy Status:Active Unknown Family Member Name Dates Details Brother 1 Comments:hypercholesterolemi a, type II diabetes, HTN Status:Active Brother 2 Comments:hypercholesterolemi a, type II diabetes, HTN Status:Active Brother 3 Comments:depression Status:Active Brother 4 Comments:hx. kidney stones Status:Active Father Comments:Collagens Karina's granulomatous Disease age 64 Status:Active First Degree Relatives Comments:paternal side cardi ovascular disease maternal side colon cancerhad cousins that had stomach cancer (moms side age 35) cousin (maternal /paternal) male cancer in early 50's (not know what kind) both cousins Status:Active maternal aunt breast cancer 60 yo Status:Active Maternal Grandfather Comments:PE age 76 Status:Active Maternal Grandmother Comments:stomach cancer at a ge 68, HTN, type II diabetes Status:Active Mother Comments:arthritis, HTN Status:Active Paternal Grandfather Comments: Status:Active Paternal Grandmother Comments:[place] age 76 Status:Active Sister 1 Comments:borderline HTN Status:Active Sister 2 Comments:irregular heart conor t (on medication) Status:Active Sister 3 Comments:healthy Status:Active Sister 4 Comments:healthy Status:Active Unknown Family Member Name Dates Details Brother 1 Comments:hypercholesterolemi a, type II diabetes, HTN Status:Active Brother 2 Comments:hypercholesterolemi a, type II diabetes, HTN Status:Active Brother 3 Comments:depression Status:Active Brother 4 Comments:hx. kidney stones Status:Active Father Comments:Collagens Karina's granulomatous Disease age 64 Status:Active First Degree Relatives Comments:paternal side cardi ovascular disease maternal side colon cancerhad cousins that had stomach cancer (moms side age 35) cousin (maternal /paternal) male cancer in early 50's (not know what kind) both cousins Status:Active maternal aunt breast cancer 60 yo Status:Active Maternal Grandfather Comments:PE age 76 Status:Active Maternal Grandmother Comments:stomach cancer at a ge 68, HTN, type II diabetes Status:Active Mother Comments:arthritis, HTN Status:Active Paternal Grandfather Comments: Status:Active Paternal Grandmother Comments:[place] age 76 Status:Active Sister 1 Comments:borderline HTN Status:Active Sister 2 Comments:irregular heart conor t (on medication) Status:Active Sister 3 Comments:healthy Status:Active Sister 4 Comments:healthy Status:Active Unknown Family Member Name Dates Details Brother 1 Comments:hypercholesterolemi a, type II diabetes, HTN Status:Active Brother 2 Comments:hypercholesterolemi a, type II diabetes, HTN Status:Active Brother 3 Comments:depression Status:Active Brother 4 Comments:hx. kidney stones Status:Active Father Comments:Collagens Karina's granulomatous Disease age 64 Status:Active First Degree Relatives Comments:paternal side cardi ovascular disease maternal side colon cancerhad cousins that had stomach cancer (moms side age 35) cousin (maternal /paternal) male cancer in early 50's (not know what kind) both cousins Status:Active maternal aunt breast cancer 60 yo Status:Active Maternal Grandfather Comments:PE age 76 Status:Active Maternal Grandmother Comments:stomach cancer at a ge 68, HTN, type II diabetes Status:Active Mother Comments:arthritis, HTN Status:Active Paternal Grandfather Comments: Status:Active Paternal Grandmother Comments:[place] age 76 Status:Active Sister 1 Comments:borderline HTN Status:Active Sister 2 Comments:irregular heart conor t (on medication) Status:Active Sister 3 Comments:healthy Status:Active Sister 4 Comments:healthy Status:Active Unknown Family Member Name Dates Details Brother 1 Comments:hypercholesterolemi a, type II diabetes, HTN Status:Active Brother 2 Comments:hypercholesterolemi a, type II diabetes, HTN Status:Active Brother 3 Comments:depression Status:Active Brother 4 Comments:hx. kidney stones Status:Active Father Comments:Collagens Karina's granulomatous Disease age 64 Status:Active First Degree Relatives Comments:paternal side cardi ovascular disease maternal side colon cancerhad cousins that had stomach cancer (moms side age 35) cousin (maternal /paternal) male cancer in early 50's (not know what kind) both cousins Status:Active maternal aunt breast cancer 60 yo Status:Active Maternal Grandfather Comments:PE age 76 Status:Active Maternal Grandmother Comments:stomach cancer at a ge 68, HTN, type II diabetes Status:Active Mother Comments:arthritis, HTN Status:Active Paternal Grandfather Comments: Status:Active Paternal Grandmother Comments:[place] age 76 Status:Active Sister 1 Comments:borderline HTN Status:Active Sister 2 Comments:irregular heart conor t (on medication) Status:Active Sister 3 Comments:healthy Status:Active Sister 4 Comments:healthy Status:Active Unknown Family Member Name Dates Details Brother 1 Comments:hypercholesterolemi a, type II diabetes, HTN Status:Active Brother 2 Comments:hypercholesterolemi a, type II diabetes, HTN Status:Active Brother 3 Comments:depression Status:Active Brother 4 Comments:hx. kidney stones Status:Active Father Comments:Collagens Karina's granulomatous Disease age 64 Status:Active First Degree Relatives Comments:paternal side cardi ovascular disease maternal side colon cancerhad cousins that had stomach cancer (moms side age 35) cousin (maternal /paternal) male cancer in early 50's (not know what kind) both cousins Status:Active maternal aunt breast cancer 60 yo Status:Active Maternal Grandfather Comments:PE age 76 Status:Active Maternal Grandmother Comments:stomach cancer at a ge 68, HTN, type II diabetes Status:Active Mother Comments:arthritis, HTN Status:Active Paternal Grandfather Comments: Status:Active Paternal Grandmother Comments:[place] age 76 Status:Active Sister 1 Comments:borderline HTN Status:Active Sister 2 Comments:irregular heart conor t (on medication) Status:Active Sister 3 Comments:healthy Status:Active Sister 4 Comments:healthy Status:Active Unknown Family Member Name Dates Details Brother 1 Comments:hypercholesterolemi a, type II diabetes, HTN Status:Active Brother 2 Comments:hypercholesterolemi a, type II diabetes, HTN Status:Active Brother 3 Comments:depression Status:Active Brother 4 Comments:hx. kidney stones Status:Active Father Comments:Collagens Karina's granulomatous Disease age 64 Status:Active First Degree Relatives Comments:paternal side cardi ovascular disease maternal side colon cancerhad cousins that had stomach cancer (moms side age 35) cousin (maternal /paternal) male cancer in early 50's (not know what kind) both cousins Status:Active maternal aunt breast cancer 60 yo Status:Active Maternal Grandfather Comments:PE age 76 Status:Active Maternal Grandmother Comments:stomach cancer at a ge 68, HTN, type II diabetes Status:Active Mother Comments:arthritis, HTN Status:Active Paternal Grandfather Comments: Status:Active Paternal Grandmother Comments:[place] age 76 Status:Active Sister 1 Comments:borderline HTN Status:Active Sister 2 Comments:irregular heart conor t (on medication) Status:Active Sister 3 Comments:healthy Status:Active Sister 4 Comments:healthy Status:Active Unknown Family Member Name Dates Details Brother 1 Comments:hypercholesterolemi a, type II diabetes, HTN Status:Active Brother 2 Comments:hypercholesterolemi a, type II diabetes, HTN Status:Active Brother 3 Comments:depression Status:Active Brother 4 Comments:hx. kidney stones Status:Active Father Comments:Collagens Karina's granulomatous Disease age 64 Status:Active First Degree Relatives Comments:paternal side cardi ovascular disease maternal side colon cancerhad cousins that had stomach cancer (moms side age 35) cousin (maternal /paternal) male cancer in early 50's (not know what kind) both cousins Status:Active maternal aunt breast cancer 60 yo Status:Active Maternal Grandfather Comments:PE age 76 Status:Active Maternal Grandmother Comments:stomach cancer at a ge 68, HTN, type II diabetes Status:Active Mother Comments:arthritis, HTN Status:Active Paternal Grandfather Comments: Status:Active Paternal Grandmother Comments:[place] age 76 Status:Active Sister 1 Comments:borderline HTN Status:Active Sister 2 Comments:irregular heart conor t (on medication) Status:Active Sister 3 Comments:healthy Status:Active Sister 4 Comments:healthy Status:Active Unknown Family Member Name Dates Details Brother 1 Comments:hypercholesterolemi a, type II diabetes, HTN Status:Active Brother 2 Comments:hypercholesterolemi a, type II diabetes, HTN Status:Active Brother 3 Comments:depression Status:Active Brother 4 Comments:hx. kidney stones Status:Active Father Comments:Collagens Karina's granulomatous Disease age 64 Status:Active First Degree Relatives Comments:paternal side cardi ovascular disease maternal side colon cancerhad cousins that had stomach cancer (moms side age 35) cousin (maternal /paternal) male cancer in early 50's (not know what kind) both cousins Status:Active maternal aunt breast cancer 60 yo Status:Active Maternal Grandfather Comments:PE age 76 Status:Active Maternal Grandmother Comments:stomach cancer at a ge 68, HTN, type II diabetes Status:Active Mother Comments:arthritis, HTN Status:Active Paternal Grandfather Comments: Status:Active Paternal Grandmother Comments:[place] age 76 Status:Active Sister 1 Comments:borderline HTN Status:Active Sister 2 Comments:irregular heart conor t (on medication) Status:Active Sister 3 Comments:healthy Status:Active Sister 4 Comments:healthy Status:Active Unknown Family Member Name Dates Details Brother 1 Comments:hypercholesterolemi a, type II diabetes, HTN Status:Active Brother 2 Comments:hypercholesterolemi a, type II diabetes, HTN Status:Active Brother 3 Comments:depression Status:Active Brother 4 Comments:hx. kidney stones Status:Active Father Comments:Collagens Karina's granulomatous Disease age 64 Status:Active First Degree Relatives Comments:paternal side cardi ovascular disease maternal side colon cancerhad cousins that had stomach cancer (moms side age 35) cousin (maternal /paternal) male cancer in early 50's (not know what kind) both cousins Status:Active maternal aunt breast cancer 60 yo Status:Active Maternal Grandfather Comments:PE age 76 Status:Active Maternal Grandmother Comments:stomach cancer at a ge 68, HTN, type II diabetes Status:Active Mother Comments:arthritis, HTN Status:Active Paternal Grandfather Comments: Status:Active Paternal Grandmother Comments:[place] age 76 Status:Active Sister 1 Comments:borderline HTN Status:Active Sister 2 Comments:irregular heart conor t (on medication) Status:Active Sister 3 Comments:healthy Status:Active Sister 4 Comments:healthy Status:Active Unknown Family Member Name Dates Details Brother 1 Comments:hypercholesterolemi a, type II diabetes, HTN Status:Active Brother 2 Comments:hypercholesterolemi a, type II diabetes, HTN Status:Active Brother 3 Comments:depression Status:Active Brother 4 Comments:hx. kidney stones Status:Active Father Comments:Collagens Karina's granulomatous Disease age 64 Status:Active First Degree Relatives Comments:paternal side cardi ovascular disease maternal side colon cancerhad cousins that had stomach cancer (moms side age 35) cousin (maternal /paternal) male cancer in early 50's (not know what kind) both cousins Status:Active maternal aunt breast cancer 60 yo Status:Active Maternal Grandfather Comments:PE age 76 Status:Active Maternal Grandmother Comments:stomach cancer at a ge 68, HTN, type II diabetes Status:Active Mother Comments:arthritis, HTN Status:Active Paternal Grandfather Comments: Status:Active Paternal Grandmother Comments:[place] age 76 Status:Active Sister 1 Comments:borderline HTN Status:Active Sister 2 Comments:irregular heart conor t (on medication) Status:Active Sister 3 Comments:healthy Status:Active Sister 4 Comments:healthy Status:Active Relationship Condition Age at Onset Recorded Date/T heath father Heart problem Unknown brother Diabetes mellitus Unknown sister Diabetes mellitus Unknown sister Paroxysmal supraventricular tachycardia U nknown sister Tachycardia Unknown Unknown Family Member Name Dates Details Brother 1 Comments:hypercholesterolemi a, type II diabetes, HTN Status:Active Brother 2 Comments:hypercholesterolemi a, type II diabetes, HTN Status:Active Brother 3 Comments:depression Status:Active Brother 4 Comments:hx. kidney stones Status:Active Father Comments:Collagens Karina's granulomatous Disease age 64 Status:Active First Degree Relatives Comments:paternal side cardi ovascular disease maternal side colon cancerhad cousins that had stomach cancer (moms side age 35) cousin (maternal /paternal) male cancer in early 50's (not know what kind) both cousins Status:Active maternal aunt breast cancer 60 yo Status:Active Maternal Grandfather Comments:PE age 76 Status:Active Maternal Grandmother Comments:stomach cancer at a ge 68, HTN, type II diabetes Status:Active Mother Comments:arthritis, HTN Status:Active Paternal Grandfather Comments: Status:Active Paternal Grandmother Comments:[place] age 76 Status:Active Sister 1 Comments:borderline HTN Status:Active Sister 2 Comments:irregular heart conor t (on medication) Status:Active Sister 3 Comments:healthy Status:Active Sister 4 Comments:healthy Status:Active Unknown Family Member Name Dates Details Brother 1 Comments:hypercholesterolemi a, type II diabetes, HTN Status:Active Brother 2 Comments:hypercholesterolemi a, type II diabetes, HTN Status:Active Brother 3 Comments:depression Status:Active Brother 4 Comments:hx. kidney stones Status:Active Father Comments:Collagens Karina's granulomatous Disease age 64 Status:Active First Degree Relatives Comments:paternal side cardi ovascular disease maternal side colon cancerhad cousins that had stomach cancer (moms side age 35) cousin (maternal /paternal) male cancer in early 50's (not know what kind) both cousins Status:Active maternal aunt breast cancer 60 yo Status:Active Maternal Grandfather Comments:PE age 76 Status:Active Maternal Grandmother Comments:stomach cancer at a ge 68, HTN, type II diabetes Status:Active Mother Comments:arthritis, HTN Status:Active Paternal Grandfather Comments: Status:Active Paternal Grandmother Comments:[place] age 76 Status:Active Sister 1 Comments:borderline HTN Status:Active Sister 2 Comments:irregular heart conor t (on medication) Status:Active Sister 3 Comments:healthy Status:Active Sister 4 Comments:healthy Status:Active Unknown Family Member Name Dates Details Brother 1 Comments:hypercholesterolemi a, type II diabetes, HTN Status:Active Brother 2 Comments:hypercholesterolemi a, type II diabetes, HTN Status:Active Brother 3 Comments:depression Status:Active Brother 4 Comments:hx. kidney stones Status:Active Father Comments:Collagens Karina's granulomatous Disease age 64 Status:Active First Degree Relatives Comments:paternal side cardi ovascular disease maternal side colon cancerhad cousins that had stomach cancer (moms side age 35) cousin (maternal /paternal) male cancer in early 50's (not know what kind) both cousins Status:Active maternal aunt breast cancer 60 yo Status:Active Maternal Grandfather Comments:PE age 76 Status:Active Maternal Grandmother Comments:stomach cancer at a ge 68, HTN, type II diabetes Status:Active Mother Comments:arthritis, HTN Status:Active Paternal Grandfather Comments: Status:Active Paternal Grandmother Comments:[place] age 76 Status:Active Sister 1 Comments:borderline HTN Status:Active Sister 2 Comments:irregular heart conor t (on medication) Status:Active Sister 3 Comments:healthy Status:Active Sister 4 Comments:healthy Status:Active Unknown Family Member Name Dates Details Brother 1 Comments:hypercholesterolemi a, type II diabetes, HTN Status:Active Brother 2 Comments:hypercholesterolemi a, type II diabetes, HTN Status:Active Brother 3 Comments:depression Status:Active Brother 4 Comments:hx. kidney stones Status:Active Father Comments:Collagens Karina's granulomatous Disease age 64 Status:Active First Degree Relatives Comments:paternal side cardi ovascular disease maternal side colon cancerhad cousins that had stomach cancer (moms side age 35) cousin (maternal /paternal) male cancer in early 50's (not know what kind) both cousins Status:Active maternal aunt breast cancer 60 yo Status:Active Maternal Grandfather Comments:PE age 76 Status:Active Maternal Grandmother Comments:stomach cancer at a ge 68, HTN, type II diabetes Status:Active Mother Comments:arthritis, HTN Status:Active Paternal Grandfather Comments: Status:Active Paternal Grandmother Comments:[place] age 76 Status:Active Sister 1 Comments:borderline HTN Status:Active Sister 2 Comments:irregular heart conor t (on medication) Status:Active Sister 3 Comments:healthy Status:Active Sister 4 Comments:healthy Status:Active Unknown Family Member Name Dates Details Brother 1 Comments:hypercholesterolemi a, type II diabetes, HTN Status:Active Brother 2 Comments:hypercholesterolemi a, type II diabetes, HTN Status:Active Brother 3 Comments:depression Status:Active Brother 4 Comments:hx. kidney stones Status:Active Father Comments:Collagens Karina's granulomatous Disease age 64 Status:Active First Degree Relatives Comments:paternal side cardi ovascular disease maternal side colon cancerhad cousins that had stomach cancer (moms side age 35) cousin (maternal /paternal) male cancer in early 50's (not know what kind) both cousins Status:Active maternal aunt breast cancer 60 yo Status:Active Maternal Grandfather Comments:PE age 76 Status:Active Maternal Grandmother Comments:stomach cancer at a ge 68, HTN, type II diabetes Status:Active Mother Comments:arthritis, HTN Status:Active Paternal Grandfather Comments: Status:Active Paternal Grandmother Comments:[place] age 76 Status:Active Sister 1 Comments:borderline HTN Status:Active Sister 2 Comments:irregular heart conor t (on medication) Status:Active Sister 3 Comments:healthy Status:Active Sister 4 Comments:healthy Status:Active Unknown Family Member Name Dates Details Brother 1 Comments:hypercholesterolemi a, type II diabetes, HTN Status:Active Brother 2 Comments:hypercholesterolemi a, type II diabetes, HTN Status:Active Brother 3 Comments:depression Status:Active Brother 4 Comments:hx. kidney stones Status:Active Father Comments:Collagens Karina's granulomatous Disease age 64 Status:Active First Degree Relatives Comments:paternal side cardi ovascular disease maternal side colon cancerhad cousins that had stomach cancer (moms side age 35) cousin (maternal /paternal) male cancer in early 50's (not know what kind) both cousins Status:Active maternal aunt breast cancer 60 yo Status:Active Maternal Grandfather Comments:PE age 76 Status:Active Maternal Grandmother Comments:stomach cancer at a ge 68, HTN, type II diabetes Status:Active Mother Comments:arthritis, HTN Status:Active Paternal Grandfather Comments: Status:Active Paternal Grandmother Comments:[place] age 76 Status:Active Sister 1 Comments:borderline HTN Status:Active Sister 2 Comments:irregular heart conor t (on medication) Status:Active Sister 3 Comments:healthy Status:Active Sister 4 Comments:healthy Status:Active Unknown Family Member Name Dates Details Brother 1 Comments:hypercholesterolemi a, type II diabetes, HTN Status:Active Brother 2 Comments:hypercholesterolemi a, type II diabetes, HTN Status:Active Brother 3 Comments:depression Status:Active Brother 4 Comments:hx. kidney stones Status:Active Father Comments:Collagens Karina's granulomatous Disease age 64 Status:Active First Degree Relatives Comments:paternal side cardi ovascular disease maternal side colon cancerhad cousins that had stomach cancer (moms side age 35) cousin (maternal /paternal) male cancer in early 50's (not know what kind) both cousins Status:Active maternal aunt breast cancer 60 yo Status:Active Maternal Grandfather Comments:PE age 76 Status:Active Maternal Grandmother Comments:stomach cancer at a ge 68, HTN, type II diabetes Status:Active Mother Comments:arthritis, HTN Status:Active Paternal Grandfather Comments: Status:Active Paternal Grandmother Comments:[place] age 76 Status:Active Sister 1 Comments:borderline HTN Status:Active Sister 2 Comments:irregular heart conor t (on medication) Status:Active Sister 3 Comments:healthy Status:Active Sister 4 Comments:healthy Status:Active Unknown Family Member Name Dates Details Brother 1 Comments:hypercholesterolemi a, type II diabetes, HTN Status:Active Brother 2 Comments:hypercholesterolemi a, type II diabetes, HTN Status:Active Brother 3 Comments:depression Status:Active Brother 4 Comments:hx. kidney stones Status:Active Father Comments:Collagens Karina's granulomatous Disease age 64 Status:Active First Degree Relatives Comments:paternal side cardi ovascular disease maternal side colon cancerhad cousins that had stomach cancer (moms side age 35) cousin (maternal /paternal) male cancer in early 50's (not know what kind) both cousins Status:Active maternal aunt breast cancer 60 yo Status:Active Maternal Grandfather Comments:PE age 76 Status:Active Maternal Grandmother Comments:stomach cancer at a ge 68, HTN, type II diabetes Status:Active Mother Comments:arthritis, HTN Status:Active Paternal Grandfather Comments: Status:Active Paternal Grandmother Comments:CA age 76 Status:Active Sister 1 Comments:borderline HTN Status:Active Sister 2 Comments:irregular heart conor t (on medication) Status:Active Sister 3 Comments:healthy Status:Active Sister 4 Comments:healthy Status:Active Unknown Family Member Name Dates Details Brother 1 Comments:hypercholesterolemi a, type II diabetes, HTN Status:Active Brother 2 Comments:hypercholesterolemi a, type II diabetes, HTN CAB at 69 yo Status:Active Brother 3 Comments:depression Status:Active Brother 4 Comments:hx. kidney stones Status:Active Father Comments:Collagens Karina's granulomatous Disease age 64 Status:Active First Degree Relatives Comments:paternal side cardi ovascular disease maternal side colon cancerhad cousins that had stomach cancer (moms side age 35) cousin (maternal /paternal) male cancer in early 50's (not know what kind) both cousins Status:Active maternal aunt breast cancer 60 yo Status:Active Maternal Grandfather Comments:PE age 76 Status:Active Maternal Grandmother Comments:stomach cancer at a ge 68, HTN, type II diabetes Status:Active Mother Comments:arthritis, HTN Status:Active Paternal Grandfather Comments: Status:Active Paternal Grandmother Comments:[place] age 76 Status:Active Sister 1 Comments:borderline HTN Status:Active Sister 2 Comments:irregular heart conor t (on medication) Status:Active Sister 3 Comments:healthy Status:Active Sister 4 Comments:healthy Status:Active Unknown Family Member Name Dates Details Brother 1 Comments:hypercholesterolemi a, type II diabetes, HTN Status:Active Brother 2 Comments:hypercholesterolemi a, type II diabetes, HTN CAB at 69 yo Status:Active Brother 3 Comments:depression Status:Active Brother 4 Comments:hx. kidney stones Status:Active Father Comments:Collagens Karina's granulomatous Disease age 64 Status:Active First Degree Relatives Comments:paternal side cardi ovascular disease maternal side colon cancerhad cousins that had stomach cancer (moms side age 35) cousin (maternal /paternal) male cancer in early 50's (not know what kind) both cousins Status:Active maternal aunt breast cancer 60 yo Status:Active Maternal Grandfather Comments:PE age 76 Status:Active Maternal Grandmother Comments:stomach cancer at a ge 68, HTN, type II diabetes Status:Active Mother Comments:arthritis, HTN Status:Active Paternal Grandfather Comments: Status:Active Paternal Grandmother Comments:CA age 76 Status:Active Sister 1 Comments:borderline HTN Status:Active Sister 2 Comments:irregular heart conor t (on medication) Status:Active Sister 3 Comments:healthy Status:Active Sister 4 Comments:healthy Status:Active Unknown Family Member Name Dates Details Brother 1 Comments:hypercholesterolemi a, type II diabetes, HTN Status:Active Brother 2 Comments:hypercholesterolemi a, type II diabetes, HTN CAB at 69 yo Status:Active Brother 3 Comments:depression Status:Active Brother 4 Comments:hx. kidney stones Status:Active Father Comments:Collagens Karina's granulomatous Disease age 64 Status:Active First Degree Relatives Comments:paternal side cardi ovascular disease maternal side colon cancerhad cousins that had stomach cancer (moms side age 35) cousin (maternal /paternal) male cancer in early 50's (not know what kind) both cousins Status:Active maternal aunt breast cancer 60 yo Status:Active Maternal Grandfather Comments:PE age 76 Status:Active Maternal Grandmother Comments:stomach cancer at a ge 68, HTN, type II diabetes Status:Active Mother Comments:arthritis, HTN Status:Active Paternal Grandfather Comments: Status:Active Paternal Grandmother Comments:[place] age 76 Status:Active Sister 1 Comments:borderline HTN Status:Active Sister 2 Comments:irregular heart conor t (on medication) Status:Active Sister 3 Comments:healthy Status:Active Sister 4 Comments:healthy Status:Active Unknown Family Member Name Dates Details Brother 1 Comments:hypercholesterolemi a, type II diabetes, HTN Status:Active Brother 2 Comments:hypercholesterolemi a, type II diabetes, HTN CAB at 69 yo Status:Active Brother 3 Comments:depression Status:Active Brother 4 Comments:hx. kidney stones Status:Active Father Comments:Collagens Karina's granulomatous Disease age 64 Status:Active First Degree Relatives Comments:paternal side cardi ovascular disease maternal side colon cancerhad cousins that had stomach cancer (moms side age 35) cousin (maternal /paternal) male cancer in early 50's (not know what kind) both cousins Status:Active maternal aunt breast cancer 60 yo Status:Active Maternal Grandfather Comments:PE age 76 Status:Active Maternal Grandmother Comments:stomach cancer at a ge 68, HTN, type II diabetes Status:Active Mother Comments:arthritis, HTN Status:Active Paternal Grandfather Comments: Status:Active Paternal Grandmother Comments:[place] age 76 Status:Active Sister 1 Comments:borderline HTN Status:Active Sister 2 Comments:irregular heart conor t (on medication) Status:Active Sister 3 Comments:healthy Status:Active Sister 4 Comments:healthy Status:Active Unknown Family Member Name Dates Details Brother 1 Comments:hypercholesterolemi a, type II diabetes, HTN Status:Active Brother 2 Comments:hypercholesterolemi a, type II diabetes, HTN CAB at 69 yo Status:Active Brother 3 Comments:depression Status:Active Brother 4 Comments:hx. kidney stones Status:Active Father Comments:Collagens Karina's granulomatous Disease age 64 Status:Active First Degree Relatives Comments:paternal side cardi ovascular disease maternal side colon cancerhad cousins that had stomach cancer (moms side age 35) cousin (maternal /paternal) male cancer in early 50's (not know what kind) both cousins Status:Active maternal aunt breast cancer 60 yo Status:Active Maternal Grandfather Comments:PE age 76 Status:Active Maternal Grandmother Comments:stomach cancer at a ge 68, HTN, type II diabetes Status:Active Mother Comments:arthritis, HTN Status:Active Paternal Grandfather Comments: Status:Active Paternal Grandmother Comments:[place] age 76 Status:Active Sister 1 Comments:borderline HTN Status:Active Sister 2 Comments:irregular heart conor t (on medication) Status:Active Sister 3 Comments:healthy Status:Active Sister 4 Comments:healthy Status:Active Unknown Family Member Name Dates Details Brother 1 Comments:hypercholesterolemi a, type II diabetes, HTN Status:Active Brother 2 Comments:hypercholesterolemi a, type II diabetes, HTN CAB at 69 yo Status:Active Brother 3 Comments:depression Status:Active Brother 4 Comments:hx. kidney stones Status:Active Father Comments:Collagens Karina's granulomatous Disease age 64 Status:Active First Degree Relatives Comments:paternal side cardi ovascular disease maternal side colon cancerhad cousins that had stomach cancer (moms side age 35) cousin (maternal /paternal) male cancer in early 50's (not know what kind) both cousins Status:Active maternal aunt breast cancer 60 yo Status:Active Maternal Grandfather Comments:PE age 76 Status:Active Maternal Grandmother Comments:stomach cancer at a ge 68, HTN, type II diabetes Status:Active Mother Comments:arthritis, HTN Status:Active Paternal Grandfather Comments: Status:Active Paternal Grandmother Comments:[place] age 76 Status:Active Sister 1 Comments:borderline HTN Status:Active Sister 2 Comments:irregular heart conor t (on medication) Status:Active Sister 3 Comments:healthy Status:Active Sister 4 Comments:healthy Status:Active Relationship Condition Age at Onset Recorded Date/T heath father Heart problem Unknown brother Diabetes mellitus Unknown sister Diabetes mellitus Unknown sister Paroxysmal supraventricular tachycardia U nknown sister Tachycardia Unknown mother Polyp of colon Unknown grandmother Malignant neoplasm of stomach Unknown Instructions Name Dates Details Well woman exam (Renamed fro m Encounter for well woman exam) : How to access health information online Indication:Well woman exam (Renamed from Encounter for well woman exam) Well woman exam (Renamed fro m Encounter for well woman exam) : How to access health information online - Detail Indication:Well woman exam (Renamed from Encounter for well woman exam) Well woman exam (Renamed fro m Encounter for well woman exam) : Patient Instructions Indication:Well woman exam (Renamed from Encounter for well woman exam) BMI 24.0-24.9, adult : How t o access health information online Indication:BMI 24.0-24.9, adult BMI 24.0-24.9, adult : How t o access health information online - Detail Indication:BMI 24.0-24.9, adult BMI 24.0-24.9, adult : Patie nt Instructions Indication:BMI 24.0-24.9, adult BMI 26.0-26.9,adult : How to access health information online Indication:BMI 26.0-26.9,adult BMI 26.0-26.9,adult : How to access health information online - Detail Indication:BMI 26.0-26.9,adult BMI 26.0-26.9,adult : Patien t Instructions Indication:BMI 26.0-26.9,adult Acute cystitis without hemat uria : How to access health information online Indication:Acute cystitis without hematuria Acute cystitis without hemat uria : How to access health information online - Detail Indication:Acute cystitis without hematuria Acute cystitis without hemat uria : Patient Instructions Indication:Acute cystitis without hematuria Thyroid nodule : How to acce ss health information online Indication:Thyroid nodule Thyroid nodule : How to acce ss health information online - Detail Indication:Thyroid nodule Thyroid nodule : Patient Ins tructions Indication:Thyroid nodule Well woman exam : How to acc ess health information online Indication:Well woman exam Well woman exam : How to acc ess health information online - Detail Indication:Well woman exam Well woman exam : Patient In structions Indication:Well woman exam Name Dates Details Well woman exam (Renamed fro m Encounter for well woman exam) : How to access health information online Indication:Well woman exam (Renamed from Encounter for well woman exam) Well woman exam (Renamed fro m Encounter for well woman exam) : How to access health information online - Detail Indication:Well woman exam (Renamed from Encounter for well woman exam) Well woman exam (Renamed fro m Encounter for well woman exam) : Patient Instructions Indication:Well woman exam (Renamed from Encounter for well woman exam) BMI 24.0-24.9, adult : How t o access health information online Indication:BMI 24.0-24.9, adult BMI 24.0-24.9, adult : How t o access health information online - Detail Indication:BMI 24.0-24.9, adult BMI 24.0-24.9, adult : Patie nt Instructions Indication:BMI 24.0-24.9, adult BMI 26.0-26.9,adult : How to access health information online Indication:BMI 26.0-26.9,adult BMI 26.0-26.9,adult : How to access health information online - Detail Indication:BMI 26.0-26.9,adult BMI 26.0-26.9,adult : Patien t Instructions Indication:BMI 26.0-26.9,adult Acute cystitis without hemat uria : How to access health information online Indication:Acute cystitis without hematuria Acute cystitis without hemat uria : How to access health information online - Detail Indication:Acute cystitis without hematuria Acute cystitis without hemat uria : Patient Instructions Indication:Acute cystitis without hematuria Thyroid nodule : How to acce ss health information online Indication:Thyroid nodule Thyroid nodule : How to acce ss health information online - Detail Indication:Thyroid nodule Thyroid nodule : Patient Ins tructions Indication:Thyroid nodule Well woman exam : How to acc ess health information online Indication:Well woman exam Well woman exam : How to acc ess health information online - Detail Indication:Well woman exam Well woman exam : Patient In structions Indication:Well woman exam Name Dates Details Non-STEMI (non-ST elevated m yocardial infarction) : How to access health information online Indication:Non-STEMI (non-ST elevated myocardial infarction) Non-STEMI (non-ST elevated m yocardial infarction) : How to access health information online - Detail Indication:Non-STEMI (non-ST elevated myocardial infarction) Non-STEMI (non-ST elevated m yocardial infarction) : Patient Instructions Indication:Non-STEMI (non-ST elevated myocardial infarction) Diverticulitis : How to acce ss health information online Indication:Diverticulitis Diverticulitis : How to acce ss health information online - Detail Indication:Diverticulitis Diverticulitis : Patient Ins tructions Indication:Diverticulitis Well woman exam (Renamed fro m Encounter for well woman exam) : How to access health information online Indication:Well woman exam (Renamed from Encounter for well woman exam) Well woman exam (Renamed fro m Encounter for well woman exam) : How to access health information online - Detail Indication:Well woman exam (Renamed from Encounter for well woman exam) Well woman exam (Renamed fro m Encounter for well woman exam) : Patient Instructions Indication:Well woman exam (Renamed from Encounter for well woman exam) BMI 24.0-24.9, adult : How t o access health information online Indication:BMI 24.0-24.9, adult BMI 24.0-24.9, adult : How t o access health information online - Detail Indication:BMI 24.0-24.9, adult BMI 24.0-24.9, adult : Patie nt Instructions Indication:BMI 24.0-24.9, adult BMI 26.0-26.9,adult : How to access health information online Indication:BMI 26.0-26.9,adult BMI 26.0-26.9,adult : How to access health information online - Detail Indication:BMI 26.0-26.9,adult BMI 26.0-26.9,adult : Patien t Instructions Indication:BMI 26.0-26.9,adult Acute cystitis without hemat uria : How to access health information online Indication:Acute cystitis without hematuria Acute cystitis without hemat uria : How to access health information online - Detail Indication:Acute cystitis without hematuria Acute cystitis without hemat uria : Patient Instructions Indication:Acute cystitis without hematuria Thyroid nodule : How to acce ss health information online Indication:Thyroid nodule Thyroid nodule : How to acce ss health information online - Detail Indication:Thyroid nodule Thyroid nodule : Patient Ins tructions Indication:Thyroid nodule Well woman exam : How to acc ess health information online Indication:Well woman exam Well woman exam : How to acc ess health information online - Detail Indication:Well woman exam Well woman exam : Patient In structions Indication:Well woman exam Name Dates Details Well woman exam (Renamed fro m Encounter for well woman exam) : How to access health information online Indication:Well woman exam (Renamed from Encounter for well woman exam) Well woman exam (Renamed fro m Encounter for well woman exam) : How to access health information online - Detail Indication:Well woman exam (Renamed from Encounter for well woman exam) Well woman exam (Renamed fro m Encounter for well woman exam) : Patient Instructions Indication:Well woman exam (Renamed from Encounter for well woman exam) Non-STEMI (non-ST elevated m yocardial infarction) : How to access health information online Indication:Non-STEMI (non-ST elevated myocardial infarction) Non-STEMI (non-ST elevated m yocardial infarction) : How to access health information online - Detail Indication:Non-STEMI (non-ST elevated myocardial infarction) Non-STEMI (non-ST elevated m yocardial infarction) : Patient Instructions Indication:Non-STEMI (non-ST elevated myocardial infarction) Diverticulitis : How to acce ss health information online Indication:Diverticulitis Diverticulitis : How to acce ss health information online - Detail Indication:Diverticulitis Diverticulitis : Patient Ins tructions Indication:Diverticulitis BMI 24.0-24.9, adult : How t o access health information online Indication:BMI 24.0-24.9, adult BMI 24.0-24.9, adult : How t o access health information online - Detail Indication:BMI 24.0-24.9, adult BMI 24.0-24.9, adult : Patie nt Instructions Indication:BMI 24.0-24.9, adult BMI 26.0-26.9,adult : How to access health information online Indication:BMI 26.0-26.9,adult BMI 26.0-26.9,adult : How to access health information online - Detail Indication:BMI 26.0-26.9,adult BMI 26.0-26.9,adult : Patien t Instructions Indication:BMI 26.0-26.9,adult Acute cystitis without hemat uria : How to access health information online Indication:Acute cystitis without hematuria Acute cystitis without hemat uria : How to access health information online - Detail Indication:Acute cystitis without hematuria Acute cystitis without hemat uria : Patient Instructions Indication:Acute cystitis without hematuria Thyroid nodule : How to acce ss health information online Indication:Thyroid nodule Thyroid nodule : How to acce ss health information online - Detail Indication:Thyroid nodule Thyroid nodule : Patient Ins tructions Indication:Thyroid nodule Well woman exam : How to acc ess health information online Indication:Well woman exam Well woman exam : How to acc ess health information online - Detail Indication:Well woman exam Well woman exam : Patient In structions Indication:Well woman exam Name Dates Details How to access health informa tion online Indication:Well woman exam (Renamed from Encounter for well woman exam) Start:08-Jun-2018 Instruction Type:Patient Education How to access health informa tion online - Detail Indication:Well woman exam (Renamed from Encounter for well woman exam) Start:08-Jun-2018 Instruction Type:Patient Education Patient Instructions Indication:Well woman exam (Renamed from Encounter for well woman exam) Start:08-Jun-2018 Instruction Type:Provider Instructions for Treatment How to access health informa tion online Indication:Non-STEMI (non-ST elevated myocardial infarction) Start:15-Mar-2018 Instruction Type:Patient Education How to access health informa tion online - Detail Indication:Non-STEMI (non-ST elevated myocardial infarction) Start:15-Mar-2018 Instruction Type:Patient Education Patient Instructions Indication:Non-STEMI (non-ST elevated myocardial infarction) Start:15-Mar-2018 Instruction Type:Provider Instructions for Treatment How to access health informa tion online Indication:Diverticulitis Start:08-Feb-2018 Instruction Type:Patient Education How to access health informa tion online - Detail Indication:Diverticulitis Start:08-Feb-2018 Instruction Type:Patient Education Patient Instructions Indication:Diverticulitis Start:08-Feb-2018 Instruction Type:Provider Instructions for Treatment How to access health informa tion online Indication:Well woman exam (Renamed from Encounter for well woman exam) Start:25-May-2017 Instruction Type:Patient Education How to access health informa tion online - Detail Indication:Well woman exam (Renamed from Encounter for well woman exam) Start:25-May-2017 Instruction Type:Patient Education Patient Instructions Indication:Well woman exam (Renamed from Encounter for well woman exam) Start:25-May-2017 Instruction Type:Provider Instructions for Treatment How to access health informa tion online Indication:BMI 24.0-24.9, adult Start:12-Jan-2017 Instruction Type:Patient Education How to access health informa tion online - Detail Indication:BMI 24.0-24.9, adult Start:12-Jan-2017 Instruction Type:Patient Education Patient Instructions Indication:BMI 24.0-24.9, adult Start:12-Jan-2017 Instruction Type:Provider Instructions for Treatment How to access health informa tion online Indication:BMI 26.0-26.9,adult Start:08-Sep-2016 Instruction Type:Patient Education How to access health informa tion online - Detail Indication:BMI 26.0-26.9,adult Start:08-Sep-2016 Instruction Type:Patient Education Patient Instructions Indication:BMI 26.0-26.9,adult Start:08-Sep-2016 Instruction Type:Provider Instructions for Treatment How to access health informa tion online Indication:Well woman exam (Renamed from Encounter for well woman exam) Start:05-May-2016 Instruction Type:Patient Education How to access health informa tion online - Detail Indication:Well woman exam (Renamed from Encounter for well woman exam) Start:05-May-2016 Instruction Type:Patient Education Patient Instructions Indication:Well woman exam (Renamed from Encounter for well woman exam) Start:05-May-2016 Instruction Type:Provider Instructions for Treatment How to access health informa tion online Indication:Acute cystitis without hematuria Start:23-Jul-2015 Instruction Type:Patient Education How to access health informa tion online - Detail Indication:Acute cystitis without hematuria Start:23-Jul-2015 Instruction Type:Patient Education Patient Instructions Indication:Acute cystitis without hematuria Start:23-Jul-2015 Instruction Type:Provider Instructions for Treatment How to access health informa tion online Indication:Thyroid nodule Start:18-Jun-2015 Instruction Type:Patient Education How to access health informa tion online - Detail Indication:Thyroid nodule Start:18-Jun-2015 Instruction Type:Patient Education Patient Instructions Indication:Thyroid nodule Start:18-Jun-2015 Instruction Type:Provider Instructions for Treatment How to access health informa tion online Indication:Well woman exam Start:16-Oct-2014 Instruction Type:Patient Education How to access health informa tion online - Detail Indication:Well woman exam Start:16-Oct-2014 Instruction Type:Patient Education Patient Instructions Indication:Well woman exam Start:16-Oct-2014 Instruction Type:Provider Instructions for Treatment Name Dates Details How to access health informa tion online Indication:Non-STEMI (non-ST elevated myocardial infarction) Start:20-Sep-2018 Instruction Type:Patient Education How to access health informa tion online - Detail Indication:Non-STEMI (non-ST elevated myocardial infarction) Start:20-Sep-2018 Instruction Type:Patient Education Patient Instructions Indication:Non-STEMI (non-ST elevated myocardial infarction) Start:20-Sep-2018 Instruction Type:Provider Instructions for Treatment How to access health informa tion online Indication:Well woman exam (Renamed from Encounter for well woman exam) Start:08-Jun-2018 Instruction Type:Patient Education How to access health informa tion online - Detail Indication:Well woman exam (Renamed from Encounter for well woman exam) Start:08-Jun-2018 Instruction Type:Patient Education Patient Instructions Indication:Well woman exam (Renamed from Encounter for well woman exam) Start:08-Jun-2018 Instruction Type:Provider Instructions for Treatment How to access health informa tion online Indication:Non-STEMI (non-ST elevated myocardial infarction) Start:15-Mar-2018 Instruction Type:Patient Education How to access health informa tion online - Detail Indication:Non-STEMI (non-ST elevated myocardial infarction) Start:15-Mar-2018 Instruction Type:Patient Education Patient Instructions Indication:Non-STEMI (non-ST elevated myocardial infarction) Start:15-Mar-2018 Instruction Type:Provider Instructions for Treatment How to access health informa tion online Indication:Diverticulitis Start:08-Feb-2018 Instruction Type:Patient Education How to access health informa tion online - Detail Indication:Diverticulitis Start:08-Feb-2018 Instruction Type:Patient Education Patient Instructions Indication:Diverticulitis Start:08-Feb-2018 Instruction Type:Provider Instructions for Treatment How to access health informa tion online Indication:Well woman exam (Renamed from Encounter for well woman exam) Start:25-May-2017 Instruction Type:Patient Education How to access health informa tion online - Detail Indication:Well woman exam (Renamed from Encounter for well woman exam) Start:25-May-2017 Instruction Type:Patient Education Patient Instructions Indication:Well woman exam (Renamed from Encounter for well woman exam) Start:25-May-2017 Instruction Type:Provider Instructions for Treatment How to access health informa tion online Indication:BMI 24.0-24.9, adult Start:12-Jan-2017 Instruction Type:Patient Education How to access health informa tion online - Detail Indication:BMI 24.0-24.9, adult Start:12-Jan-2017 Instruction Type:Patient Education Patient Instructions Indication:BMI 24.0-24.9, adult Start:12-Jan-2017 Instruction Type:Provider Instructions for Treatment How to access health informa tion online Indication:BMI 26.0-26.9,adult Start:08-Sep-2016 Instruction Type:Patient Education How to access health informa tion online - Detail Indication:BMI 26.0-26.9,adult Start:08-Sep-2016 Instruction Type:Patient Education Patient Instructions Indication:BMI 26.0-26.9,adult Start:08-Sep-2016 Instruction Type:Provider Instructions for Treatment How to access health informa tion online Indication:Well woman exam (Renamed from Encounter for well woman exam) Start:05-May-2016 Instruction Type:Patient Education How to access health informa tion online - Detail Indication:Well woman exam (Renamed from Encounter for well woman exam) Start:05-May-2016 Instruction Type:Patient Education Patient Instructions Indication:Well woman exam (Renamed from Encounter for well woman exam) Start:05-May-2016 Instruction Type:Provider Instructions for Treatment How to access health informa tion online Indication:Acute cystitis without hematuria Start:23-Jul-2015 Instruction Type:Patient Education How to access health informa tion online - Detail Indication:Acute cystitis without hematuria Start:23-Jul-2015 Instruction Type:Patient Education Patient Instructions Indication:Acute cystitis without hematuria Start:23-Jul-2015 Instruction Type:Provider Instructions for Treatment How to access health informa tion online Indication:Thyroid nodule Start:18-Jun-2015 Instruction Type:Patient Education How to access health informa tion online - Detail Indication:Thyroid nodule Start:18-Jun-2015 Instruction Type:Patient Education Patient Instructions Indication:Thyroid nodule Start:18-Jun-2015 Instruction Type:Provider Instructions for Treatment How to access health informa tion online Indication:Well woman exam Start:16-Oct-2014 Instruction Type:Patient Education How to access health informa tion online - Detail Indication:Well woman exam Start:16-Oct-2014 Instruction Type:Patient Education Patient Instructions Indication:Well woman exam Start:16-Oct-2014 Instruction Type:Provider Instructions for Treatment Name Dates Details How to access health informa tion online Indication:Non-STEMI (non-ST elevated myocardial infarction) Start:20-Sep-2018 Instruction Type:Patient Education How to access health informa tion online - Detail Indication:Non-STEMI (non-ST elevated myocardial infarction) Start:20-Sep-2018 Instruction Type:Patient Education Patient Instructions Indication:Non-STEMI (non-ST elevated myocardial infarction) Start:20-Sep-2018 Instruction Type:Provider Instructions for Treatment How to access health informa tion online Indication:Well woman exam (Renamed from Encounter for well woman exam) Start:08-Jun-2018 Instruction Type:Patient Education How to access health informa tion online - Detail Indication:Well woman exam (Renamed from Encounter for well woman exam) Start:08-Jun-2018 Instruction Type:Patient Education Patient Instructions Indication:Well woman exam (Renamed from Encounter for well woman exam) Start:08-Jun-2018 Instruction Type:Provider Instructions for Treatment How to access health informa tion online Indication:Non-STEMI (non-ST elevated myocardial infarction) Start:15-Mar-2018 Instruction Type:Patient Education How to access health informa tion online - Detail Indication:Non-STEMI (non-ST elevated myocardial infarction) Start:15-Mar-2018 Instruction Type:Patient Education Patient Instructions Indication:Non-STEMI (non-ST elevated myocardial infarction) Start:15-Mar-2018 Instruction Type:Provider Instructions for Treatment How to access health informa tion online Indication:Diverticulitis Start:08-Feb-2018 Instruction Type:Patient Education How to access health informa tion online - Detail Indication:Diverticulitis Start:08-Feb-2018 Instruction Type:Patient Education Patient Instructions Indication:Diverticulitis Start:08-Feb-2018 Instruction Type:Provider Instructions for Treatment How to access health informa tion online Indication:Well woman exam (Renamed from Encounter for well woman exam) Start:25-May-2017 Instruction Type:Patient Education How to access health informa tion online - Detail Indication:Well woman exam (Renamed from Encounter for well woman exam) Start:25-May-2017 Instruction Type:Patient Education Patient Instructions Indication:Well woman exam (Renamed from Encounter for well woman exam) Start:25-May-2017 Instruction Type:Provider Instructions for Treatment How to access health informa tion online Indication:BMI 24.0-24.9, adult Start:12-Jan-2017 Instruction Type:Patient Education How to access health informa tion online - Detail Indication:BMI 24.0-24.9, adult Start:12-Jan-2017 Instruction Type:Patient Education Patient Instructions Indication:BMI 24.0-24.9, adult Start:12-Jan-2017 Instruction Type:Provider Instructions for Treatment How to access health informa tion online Indication:BMI 26.0-26.9,adult Start:08-Sep-2016 Instruction Type:Patient Education How to access health informa tion online - Detail Indication:BMI 26.0-26.9,adult Start:08-Sep-2016 Instruction Type:Patient Education Patient Instructions Indication:BMI 26.0-26.9,adult Start:08-Sep-2016 Instruction Type:Provider Instructions for Treatment How to access health informa tion online Indication:Well woman exam (Renamed from Encounter for well woman exam) Start:05-May-2016 Instruction Type:Patient Education How to access health informa tion online - Detail Indication:Well woman exam (Renamed from Encounter for well woman exam) Start:05-May-2016 Instruction Type:Patient Education Patient Instructions Indication:Well woman exam (Renamed from Encounter for well woman exam) Start:05-May-2016 Instruction Type:Provider Instructions for Treatment How to access health informa tion online Indication:Acute cystitis without hematuria Start:23-Jul-2015 Instruction Type:Patient Education How to access health informa tion online - Detail Indication:Acute cystitis without hematuria Start:23-Jul-2015 Instruction Type:Patient Education Patient Instructions Indication:Acute cystitis without hematuria Start:23-Jul-2015 Instruction Type:Provider Instructions for Treatment How to access health informa tion online Indication:Thyroid nodule Start:18-Jun-2015 Instruction Type:Patient Education How to access health informa tion online - Detail Indication:Thyroid nodule Start:18-Jun-2015 Instruction Type:Patient Education Patient Instructions Indication:Thyroid nodule Start:18-Jun-2015 Instruction Type:Provider Instructions for Treatment How to access health informa tion online Indication:Well woman exam Start:16-Oct-2014 Instruction Type:Patient Education How to access health informa tion online - Detail Indication:Well woman exam Start:16-Oct-2014 Instruction Type:Patient Education Patient Instructions Indication:Well woman exam Start:16-Oct-2014 Instruction Type:Provider Instructions for Treatment Name Dates Details How to access health informa tion online Indication:Non-STEMI (non-ST elevated myocardial infarction) Start:20-Sep-2018 Instruction Type:Patient Education How to access health informa tion online - Detail Indication:Non-STEMI (non-ST elevated myocardial infarction) Start:20-Sep-2018 Instruction Type:Patient Education Patient Instructions Indication:Non-STEMI (non-ST elevated myocardial infarction) Start:20-Sep-2018 Instruction Type:Provider Instructions for Treatment How to access health informa tion online Indication:Well woman exam (Renamed from Encounter for well woman exam) Start:08-Jun-2018 Instruction Type:Patient Education How to access health informa tion online - Detail Indication:Well woman exam (Renamed from Encounter for well woman exam) Start:08-Jun-2018 Instruction Type:Patient Education Patient Instructions Indication:Well woman exam (Renamed from Encounter for well woman exam) Start:08-Jun-2018 Instruction Type:Provider Instructions for Treatment How to access health informa tion online Indication:Non-STEMI (non-ST elevated myocardial infarction) Start:15-Mar-2018 Instruction Type:Patient Education How to access health informa tion online - Detail Indication:Non-STEMI (non-ST elevated myocardial infarction) Start:15-Mar-2018 Instruction Type:Patient Education Patient Instructions Indication:Non-STEMI (non-ST elevated myocardial infarction) Start:15-Mar-2018 Instruction Type:Provider Instructions for Treatment How to access health informa tion online Indication:Diverticulitis Start:08-Feb-2018 Instruction Type:Patient Education How to access health informa tion online - Detail Indication:Diverticulitis Start:08-Feb-2018 Instruction Type:Patient Education Patient Instructions Indication:Diverticulitis Start:08-Feb-2018 Instruction Type:Provider Instructions for Treatment How to access health informa tion online Indication:Well woman exam (Renamed from Encounter for well woman exam) Start:25-May-2017 Instruction Type:Patient Education How to access health informa tion online - Detail Indication:Well woman exam (Renamed from Encounter for well woman exam) Start:25-May-2017 Instruction Type:Patient Education Patient Instructions Indication:Well woman exam (Renamed from Encounter for well woman exam) Start:25-May-2017 Instruction Type:Provider Instructions for Treatment How to access health informa tion online Indication:BMI 24.0-24.9, adult Start:12-Jan-2017 Instruction Type:Patient Education How to access health informa tion online - Detail Indication:BMI 24.0-24.9, adult Start:12-Jan-2017 Instruction Type:Patient Education Patient Instructions Indication:BMI 24.0-24.9, adult Start:12-Jan-2017 Instruction Type:Provider Instructions for Treatment How to access health informa tion online Indication:BMI 26.0-26.9,adult Start:08-Sep-2016 Instruction Type:Patient Education How to access health informa tion online - Detail Indication:BMI 26.0-26.9,adult Start:08-Sep-2016 Instruction Type:Patient Education Patient Instructions Indication:BMI 26.0-26.9,adult Start:08-Sep-2016 Instruction Type:Provider Instructions for Treatment How to access health informa tion online Indication:Well woman exam (Renamed from Encounter for well woman exam) Start:05-May-2016 Instruction Type:Patient Education How to access health informa tion online - Detail Indication:Well woman exam (Renamed from Encounter for well woman exam) Start:05-May-2016 Instruction Type:Patient Education Patient Instructions Indication:Well woman exam (Renamed from Encounter for well woman exam) Start:05-May-2016 Instruction Type:Provider Instructions for Treatment How to access health informa tion online Indication:Acute cystitis without hematuria Start:23-Jul-2015 Instruction Type:Patient Education How to access health informa tion online - Detail Indication:Acute cystitis without hematuria Start:23-Jul-2015 Instruction Type:Patient Education Patient Instructions Indication:Acute cystitis without hematuria Start:23-Jul-2015 Instruction Type:Provider Instructions for Treatment How to access health informa tion online Indication:Thyroid nodule Start:18-Jun-2015 Instruction Type:Patient Education How to access health informa tion online - Detail Indication:Thyroid nodule Start:18-Jun-2015 Instruction Type:Patient Education Patient Instructions Indication:Thyroid nodule Start:18-Jun-2015 Instruction Type:Provider Instructions for Treatment How to access health informa tion online Indication:Well woman exam Start:16-Oct-2014 Instruction Type:Patient Education How to access health informa tion online - Detail Indication:Well woman exam Start:16-Oct-2014 Instruction Type:Patient Education Patient Instructions Indication:Well woman exam Start:16-Oct-2014 Instruction Type:Provider Instructions for Treatment Name Dates Details How to access health informa tion online Indication:Current nonsmoker (Renamed from Current non-smoker) Start:18-Nov-2018 Instruction Type:Patient Education How to access health informa tion online - Detail Indication:Current nonsmoker (Renamed from Current non-smoker) Start:18-Nov-2018 Instruction Type:Patient Education Patient Instructions Indication:BMI 24.0-24.9, adult Start:18-Nov-2018 Instruction Type:Provider Instructions for Treatment How to access health informa tion online Indication:Non-STEMI (non-ST elevated myocardial infarction) Start:20-Sep-2018 Instruction Type:Patient Education How to access health informa tion online - Detail Indication:Non-STEMI (non-ST elevated myocardial infarction) Start:20-Sep-2018 Instruction Type:Patient Education Patient Instructions Indication:Non-STEMI (non-ST elevated myocardial infarction) Start:20-Sep-2018 Instruction Type:Provider Instructions for Treatment How to access health informa tion online Indication:Well woman exam (Renamed from Encounter for well woman exam) Start:08-Jun-2018 Instruction Type:Patient Education How to access health informa tion online - Detail Indication:Well woman exam (Renamed from Encounter for well woman exam) Start:08-Jun-2018 Instruction Type:Patient Education Patient Instructions Indication:Well woman exam (Renamed from Encounter for well woman exam) Start:08-Jun-2018 Instruction Type:Provider Instructions for Treatment How to access health informa tion online Indication:Non-STEMI (non-ST elevated myocardial infarction) Start:15-Mar-2018 Instruction Type:Patient Education How to access health informa tion online - Detail Indication:Non-STEMI (non-ST elevated myocardial infarction) Start:15-Mar-2018 Instruction Type:Patient Education Patient Instructions Indication:Non-STEMI (non-ST elevated myocardial infarction) Start:15-Mar-2018 Instruction Type:Provider Instructions for Treatment How to access health informa tion online Indication:Diverticulitis Start:08-Feb-2018 Instruction Type:Patient Education How to access health informa tion online - Detail Indication:Diverticulitis Start:08-Feb-2018 Instruction Type:Patient Education Patient Instructions Indication:Diverticulitis Start:08-Feb-2018 Instruction Type:Provider Instructions for Treatment How to access health informa tion online Indication:Well woman exam (Renamed from Encounter for well woman exam) Start:25-May-2017 Instruction Type:Patient Education How to access health informa tion online - Detail Indication:Well woman exam (Renamed from Encounter for well woman exam) Start:25-May-2017 Instruction Type:Patient Education Patient Instructions Indication:Well woman exam (Renamed from Encounter for well woman exam) Start:25-May-2017 Instruction Type:Provider Instructions for Treatment How to access health informa tion online Indication:BMI 24.0-24.9, adult Start:12-Jan-2017 Instruction Type:Patient Education How to access health informa tion online - Detail Indication:BMI 24.0-24.9, adult Start:12-Jan-2017 Instruction Type:Patient Education Patient Instructions Indication:BMI 24.0-24.9, adult Start:12-Jan-2017 Instruction Type:Provider Instructions for Treatment How to access health informa tion online Indication:BMI 26.0-26.9,adult Start:08-Sep-2016 Instruction Type:Patient Education How to access health informa tion online - Detail Indication:BMI 26.0-26.9,adult Start:08-Sep-2016 Instruction Type:Patient Education Patient Instructions Indication:BMI 26.0-26.9,adult Start:08-Sep-2016 Instruction Type:Provider Instructions for Treatment How to access health informa tion online Indication:Well woman exam (Renamed from Encounter for well woman exam) Start:05-May-2016 Instruction Type:Patient Education How to access health informa tion online - Detail Indication:Well woman exam (Renamed from Encounter for well woman exam) Start:05-May-2016 Instruction Type:Patient Education Patient Instructions Indication:Well woman exam (Renamed from Encounter for well woman exam) Start:05-May-2016 Instruction Type:Provider Instructions for Treatment How to access health informa tion online Indication:Acute cystitis without hematuria Start:23-Jul-2015 Instruction Type:Patient Education How to access health informa tion online - Detail Indication:Acute cystitis without hematuria Start:23-Jul-2015 Instruction Type:Patient Education Patient Instructions Indication:Acute cystitis without hematuria Start:23-Jul-2015 Instruction Type:Provider Instructions for Treatment How to access health informa tion online Indication:Thyroid nodule Start:18-Jun-2015 Instruction Type:Patient Education How to access health informa tion online - Detail Indication:Thyroid nodule Start:18-Jun-2015 Instruction Type:Patient Education Patient Instructions Indication:Thyroid nodule Start:18-Jun-2015 Instruction Type:Provider Instructions for Treatment How to access health informa tion online Indication:Well woman exam Start:16-Oct-2014 Instruction Type:Patient Education How to access health informa tion online - Detail Indication:Well woman exam Start:16-Oct-2014 Instruction Type:Patient Education Patient Instructions Indication:Well woman exam Start:16-Oct-2014 Instruction Type:Provider Instructions for Treatment Name Dates Details How to access health informa tion online Indication:Current nonsmoker (Renamed from Current non-smoker) Start:18-Nov-2018 Instruction Type:Patient Education How to access health informa tion online - Detail Indication:Current nonsmoker (Renamed from Current non-smoker) Start:18-Nov-2018 Instruction Type:Patient Education Patient Instructions Indication:BMI 24.0-24.9, adult Start:18-Nov-2018 Instruction Type:Provider Instructions for Treatment How to access health informa tion online Indication:Non-STEMI (non-ST elevated myocardial infarction) Start:20-Sep-2018 Instruction Type:Patient Education How to access health informa tion online - Detail Indication:Non-STEMI (non-ST elevated myocardial infarction) Start:20-Sep-2018 Instruction Type:Patient Education Patient Instructions Indication:Non-STEMI (non-ST elevated myocardial infarction) Start:20-Sep-2018 Instruction Type:Provider Instructions for Treatment How to access health informa tion online Indication:Well woman exam (Renamed from Encounter for well woman exam) Start:08-Jun-2018 Instruction Type:Patient Education How to access health informa tion online - Detail Indication:Well woman exam (Renamed from Encounter for well woman exam) Start:08-Jun-2018 Instruction Type:Patient Education Patient Instructions Indication:Well woman exam (Renamed from Encounter for well woman exam) Start:08-Jun-2018 Instruction Type:Provider Instructions for Treatment How to access health informa tion online Indication:Non-STEMI (non-ST elevated myocardial infarction) Start:15-Mar-2018 Instruction Type:Patient Education How to access health informa tion online - Detail Indication:Non-STEMI (non-ST elevated myocardial infarction) Start:15-Mar-2018 Instruction Type:Patient Education Patient Instructions Indication:Non-STEMI (non-ST elevated myocardial infarction) Start:15-Mar-2018 Instruction Type:Provider Instructions for Treatment How to access health informa tion online Indication:Diverticulitis Start:08-Feb-2018 Instruction Type:Patient Education How to access health informa tion online - Detail Indication:Diverticulitis Start:08-Feb-2018 Instruction Type:Patient Education Patient Instructions Indication:Diverticulitis Start:08-Feb-2018 Instruction Type:Provider Instructions for Treatment How to access health informa tion online Indication:Well woman exam (Renamed from Encounter for well woman exam) Start:25-May-2017 Instruction Type:Patient Education How to access health informa tion online - Detail Indication:Well woman exam (Renamed from Encounter for well woman exam) Start:25-May-2017 Instruction Type:Patient Education Patient Instructions Indication:Well woman exam (Renamed from Encounter for well woman exam) Start:25-May-2017 Instruction Type:Provider Instructions for Treatment How to access health informa tion online Indication:BMI 24.0-24.9, adult Start:12-Jan-2017 Instruction Type:Patient Education How to access health informa tion online - Detail Indication:BMI 24.0-24.9, adult Start:12-Jan-2017 Instruction Type:Patient Education Patient Instructions Indication:BMI 24.0-24.9, adult Start:12-Jan-2017 Instruction Type:Provider Instructions for Treatment How to access health informa tion online Indication:BMI 26.0-26.9,adult Start:08-Sep-2016 Instruction Type:Patient Education How to access health informa tion online - Detail Indication:BMI 26.0-26.9,adult Start:08-Sep-2016 Instruction Type:Patient Education Patient Instructions Indication:BMI 26.0-26.9,adult Start:08-Sep-2016 Instruction Type:Provider Instructions for Treatment How to access health informa tion online Indication:Well woman exam (Renamed from Encounter for well woman exam) Start:05-May-2016 Instruction Type:Patient Education How to access health informa tion online - Detail Indication:Well woman exam (Renamed from Encounter for well woman exam) Start:05-May-2016 Instruction Type:Patient Education Patient Instructions Indication:Well woman exam (Renamed from Encounter for well woman exam) Start:05-May-2016 Instruction Type:Provider Instructions for Treatment How to access health informa tion online Indication:Acute cystitis without hematuria Start:23-Jul-2015 Instruction Type:Patient Education How to access health informa tion online - Detail Indication:Acute cystitis without hematuria Start:23-Jul-2015 Instruction Type:Patient Education Patient Instructions Indication:Acute cystitis without hematuria Start:23-Jul-2015 Instruction Type:Provider Instructions for Treatment How to access health informa tion online Indication:Thyroid nodule Start:18-Jun-2015 Instruction Type:Patient Education How to access health informa tion online - Detail Indication:Thyroid nodule Start:18-Jun-2015 Instruction Type:Patient Education Patient Instructions Indication:Thyroid nodule Start:18-Jun-2015 Instruction Type:Provider Instructions for Treatment How to access health informa tion online Indication:Well woman exam Start:16-Oct-2014 Instruction Type:Patient Education How to access health informa tion online - Detail Indication:Well woman exam Start:16-Oct-2014 Instruction Type:Patient Education Patient Instructions Indication:Well woman exam Start:16-Oct-2014 Instruction Type:Provider Instructions for Treatment Name Dates Details How to access health informa tion online Indication:Current nonsmoker (Renamed from Current non-smoker) Start:18-Nov-2018 Instruction Type:Patient Education How to access health informa tion online - Detail Indication:Current nonsmoker (Renamed from Current non-smoker) Start:18-Nov-2018 Instruction Type:Patient Education Patient Instructions Indication:BMI 24.0-24.9, adult Start:18-Nov-2018 Instruction Type:Provider Instructions for Treatment How to access health informa tion online Indication:Non-STEMI (non-ST elevated myocardial infarction) Start:20-Sep-2018 Instruction Type:Patient Education How to access health informa tion online - Detail Indication:Non-STEMI (non-ST elevated myocardial infarction) Start:20-Sep-2018 Instruction Type:Patient Education Patient Instructions Indication:Non-STEMI (non-ST elevated myocardial infarction) Start:20-Sep-2018 Instruction Type:Provider Instructions for Treatment How to access health informa tion online Indication:Well woman exam (Renamed from Encounter for well woman exam) Start:08-Jun-2018 Instruction Type:Patient Education How to access health informa tion online - Detail Indication:Well woman exam (Renamed from Encounter for well woman exam) Start:08-Jun-2018 Instruction Type:Patient Education Patient Instructions Indication:Well woman exam (Renamed from Encounter for well woman exam) Start:08-Jun-2018 Instruction Type:Provider Instructions for Treatment How to access health informa tion online Indication:Non-STEMI (non-ST elevated myocardial infarction) Start:15-Mar-2018 Instruction Type:Patient Education How to access health informa tion online - Detail Indication:Non-STEMI (non-ST elevated myocardial infarction) Start:15-Mar-2018 Instruction Type:Patient Education Patient Instructions Indication:Non-STEMI (non-ST elevated myocardial infarction) Start:15-Mar-2018 Instruction Type:Provider Instructions for Treatment How to access health informa tion online Indication:Diverticulitis Start:08-Feb-2018 Instruction Type:Patient Education How to access health informa tion online - Detail Indication:Diverticulitis Start:08-Feb-2018 Instruction Type:Patient Education Patient Instructions Indication:Diverticulitis Start:08-Feb-2018 Instruction Type:Provider Instructions for Treatment How to access health informa tion online Indication:Well woman exam (Renamed from Encounter for well woman exam) Start:25-May-2017 Instruction Type:Patient Education How to access health informa tion online - Detail Indication:Well woman exam (Renamed from Encounter for well woman exam) Start:25-May-2017 Instruction Type:Patient Education Patient Instructions Indication:Well woman exam (Renamed from Encounter for well woman exam) Start:25-May-2017 Instruction Type:Provider Instructions for Treatment How to access health informa tion online Indication:BMI 24.0-24.9, adult Start:12-Jan-2017 Instruction Type:Patient Education How to access health informa tion online - Detail Indication:BMI 24.0-24.9, adult Start:12-Jan-2017 Instruction Type:Patient Education Patient Instructions Indication:BMI 24.0-24.9, adult Start:12-Jan-2017 Instruction Type:Provider Instructions for Treatment How to access health informa tion online Indication:BMI 26.0-26.9,adult Start:08-Sep-2016 Instruction Type:Patient Education How to access health informa tion online - Detail Indication:BMI 26.0-26.9,adult Start:08-Sep-2016 Instruction Type:Patient Education Patient Instructions Indication:BMI 26.0-26.9,adult Start:08-Sep-2016 Instruction Type:Provider Instructions for Treatment How to access health informa tion online Indication:Well woman exam (Renamed from Encounter for well woman exam) Start:05-May-2016 Instruction Type:Patient Education How to access health informa tion online - Detail Indication:Well woman exam (Renamed from Encounter for well woman exam) Start:05-May-2016 Instruction Type:Patient Education Patient Instructions Indication:Well woman exam (Renamed from Encounter for well woman exam) Start:05-May-2016 Instruction Type:Provider Instructions for Treatment How to access health informa tion online Indication:Acute cystitis without hematuria Start:23-Jul-2015 Instruction Type:Patient Education How to access health informa tion online - Detail Indication:Acute cystitis without hematuria Start:23-Jul-2015 Instruction Type:Patient Education Patient Instructions Indication:Acute cystitis without hematuria Start:23-Jul-2015 Instruction Type:Provider Instructions for Treatment How to access health informa tion online Indication:Thyroid nodule Start:18-Jun-2015 Instruction Type:Patient Education How to access health informa tion online - Detail Indication:Thyroid nodule Start:18-Jun-2015 Instruction Type:Patient Education Patient Instructions Indication:Thyroid nodule Start:18-Jun-2015 Instruction Type:Provider Instructions for Treatment How to access health informa tion online Indication:Well woman exam Start:16-Oct-2014 Instruction Type:Patient Education How to access health informa tion online - Detail Indication:Well woman exam Start:16-Oct-2014 Instruction Type:Patient Education Patient Instructions Indication:Well woman exam Start:16-Oct-2014 Instruction Type:Provider Instructions for Treatment Name Dates Details How to access health informa tion online Indication:Non-STEMI (non-ST elevated myocardial infarction) Start:28-Mar-2019 Instruction Type:Patient Education How to access health informa tion online - Detail Indication:Non-STEMI (non-ST elevated myocardial infarction) Start:28-Mar-2019 Instruction Type:Patient Education Patient Instructions Indication:Non-STEMI (non-ST elevated myocardial infarction) Start:28-Mar-2019 Instruction Type:Provider Instructions for Treatment How to access health informa tion online Indication:Current nonsmoker (Renamed from Current non-smoker) Start:18-Nov-2018 Instruction Type:Patient Education How to access health informa tion online - Detail Indication:Current nonsmoker (Renamed from Current non-smoker) Start:18-Nov-2018 Instruction Type:Patient Education Patient Instructions Indication:BMI 24.0-24.9, adult Start:18-Nov-2018 Instruction Type:Provider Instructions for Treatment How to access health informa tion online Indication:Non-STEMI (non-ST elevated myocardial infarction) Start:20-Sep-2018 Instruction Type:Patient Education How to access health informa tion online - Detail Indication:Non-STEMI (non-ST elevated myocardial infarction) Start:20-Sep-2018 Instruction Type:Patient Education Patient Instructions Indication:Non-STEMI (non-ST elevated myocardial infarction) Start:20-Sep-2018 Instruction Type:Provider Instructions for Treatment How to access health informa tion online Indication:Well woman exam (Renamed from Encounter for well woman exam) Start:08-Jun-2018 Instruction Type:Patient Education How to access health informa tion online - Detail Indication:Well woman exam (Renamed from Encounter for well woman exam) Start:08-Jun-2018 Instruction Type:Patient Education Patient Instructions Indication:Well woman exam (Renamed from Encounter for well woman exam) Start:08-Jun-2018 Instruction Type:Provider Instructions for Treatment How to access health informa tion online Indication:Non-STEMI (non-ST elevated myocardial infarction) Start:15-Mar-2018 Instruction Type:Patient Education How to access health informa tion online - Detail Indication:Non-STEMI (non-ST elevated myocardial infarction) Start:15-Mar-2018 Instruction Type:Patient Education Patient Instructions Indication:Non-STEMI (non-ST elevated myocardial infarction) Start:15-Mar-2018 Instruction Type:Provider Instructions for Treatment How to access health informa tion online Indication:Diverticulitis Start:08-Feb-2018 Instruction Type:Patient Education How to access health informa tion online - Detail Indication:Diverticulitis Start:08-Feb-2018 Instruction Type:Patient Education Patient Instructions Indication:Diverticulitis Start:08-Feb-2018 Instruction Type:Provider Instructions for Treatment How to access health informa tion online Indication:Well woman exam (Renamed from Encounter for well woman exam) Start:25-May-2017 Instruction Type:Patient Education How to access health informa tion online - Detail Indication:Well woman exam (Renamed from Encounter for well woman exam) Start:25-May-2017 Instruction Type:Patient Education Patient Instructions Indication:Well woman exam (Renamed from Encounter for well woman exam) Start:25-May-2017 Instruction Type:Provider Instructions for Treatment How to access health informa tion online Indication:BMI 24.0-24.9, adult Start:12-Jan-2017 Instruction Type:Patient Education How to access health informa tion online - Detail Indication:BMI 24.0-24.9, adult Start:12-Jan-2017 Instruction Type:Patient Education Patient Instructions Indication:BMI 24.0-24.9, adult Start:12-Jan-2017 Instruction Type:Provider Instructions for Treatment How to access health informa tion online Indication:BMI 26.0-26.9,adult Start:08-Sep-2016 Instruction Type:Patient Education How to access health informa tion online - Detail Indication:BMI 26.0-26.9,adult Start:08-Sep-2016 Instruction Type:Patient Education Patient Instructions Indication:BMI 26.0-26.9,adult Start:08-Sep-2016 Instruction Type:Provider Instructions for Treatment How to access health informa tion online Indication:Well woman exam (Renamed from Encounter for well woman exam) Start:05-May-2016 Instruction Type:Patient Education How to access health informa tion online - Detail Indication:Well woman exam (Renamed from Encounter for well woman exam) Start:05-May-2016 Instruction Type:Patient Education Patient Instructions Indication:Well woman exam (Renamed from Encounter for well woman exam) Start:05-May-2016 Instruction Type:Provider Instructions for Treatment How to access health informa tion online Indication:Acute cystitis without hematuria Start:23-Jul-2015 Instruction Type:Patient Education How to access health informa tion online - Detail Indication:Acute cystitis without hematuria Start:23-Jul-2015 Instruction Type:Patient Education Patient Instructions Indication:Acute cystitis without hematuria Start:23-Jul-2015 Instruction Type:Provider Instructions for Treatment How to access health informa tion online Indication:Thyroid nodule Start:18-Jun-2015 Instruction Type:Patient Education How to access health informa tion online - Detail Indication:Thyroid nodule Start:18-Jun-2015 Instruction Type:Patient Education Patient Instructions Indication:Thyroid nodule Start:18-Jun-2015 Instruction Type:Provider Instructions for Treatment How to access health informa tion online Indication:Well woman exam Start:16-Oct-2014 Instruction Type:Patient Education How to access health informa tion online - Detail Indication:Well woman exam Start:16-Oct-2014 Instruction Type:Patient Education Patient Instructions Indication:Well woman exam Start:16-Oct-2014 Instruction Type:Provider Instructions for Treatment Name Dates Details How to access health informa tion online Indication:Non-STEMI (non-ST elevated myocardial infarction) Start:28-Mar-2019 Instruction Type:Patient Education How to access health informa tion online - Detail Indication:Non-STEMI (non-ST elevated myocardial infarction) Start:28-Mar-2019 Instruction Type:Patient Education Patient Instructions Indication:Non-STEMI (non-ST elevated myocardial infarction) Start:28-Mar-2019 Instruction Type:Provider Instructions for Treatment How to access health informa tion online Indication:Current nonsmoker (Renamed from Current non-smoker) Start:18-Nov-2018 Instruction Type:Patient Education How to access health informa tion online - Detail Indication:Current nonsmoker (Renamed from Current non-smoker) Start:18-Nov-2018 Instruction Type:Patient Education Patient Instructions Indication:BMI 24.0-24.9, adult Start:18-Nov-2018 Instruction Type:Provider Instructions for Treatment How to access health informa tion online Indication:Non-STEMI (non-ST elevated myocardial infarction) Start:20-Sep-2018 Instruction Type:Patient Education How to access health informa tion online - Detail Indication:Non-STEMI (non-ST elevated myocardial infarction) Start:20-Sep-2018 Instruction Type:Patient Education Patient Instructions Indication:Non-STEMI (non-ST elevated myocardial infarction) Start:20-Sep-2018 Instruction Type:Provider Instructions for Treatment How to access health informa tion online Indication:Well woman exam (Renamed from Encounter for well woman exam) Start:08-Jun-2018 Instruction Type:Patient Education How to access health informa tion online - Detail Indication:Well woman exam (Renamed from Encounter for well woman exam) Start:08-Jun-2018 Instruction Type:Patient Education Patient Instructions Indication:Well woman exam (Renamed from Encounter for well woman exam) Start:08-Jun-2018 Instruction Type:Provider Instructions for Treatment How to access health informa tion online Indication:Non-STEMI (non-ST elevated myocardial infarction) Start:15-Mar-2018 Instruction Type:Patient Education How to access health informa tion online - Detail Indication:Non-STEMI (non-ST elevated myocardial infarction) Start:15-Mar-2018 Instruction Type:Patient Education Patient Instructions Indication:Non-STEMI (non-ST elevated myocardial infarction) Start:15-Mar-2018 Instruction Type:Provider Instructions for Treatment How to access health informa tion online Indication:Diverticulitis Start:08-Feb-2018 Instruction Type:Patient Education How to access health informa tion online - Detail Indication:Diverticulitis Start:08-Feb-2018 Instruction Type:Patient Education Patient Instructions Indication:Diverticulitis Start:08-Feb-2018 Instruction Type:Provider Instructions for Treatment How to access health informa tion online Indication:Well woman exam (Renamed from Encounter for well woman exam) Start:25-May-2017 Instruction Type:Patient Education How to access health informa tion online - Detail Indication:Well woman exam (Renamed from Encounter for well woman exam) Start:25-May-2017 Instruction Type:Patient Education Patient Instructions Indication:Well woman exam (Renamed from Encounter for well woman exam) Start:25-May-2017 Instruction Type:Provider Instructions for Treatment How to access health informa tion online Indication:BMI 24.0-24.9, adult Start:12-Jan-2017 Instruction Type:Patient Education How to access health informa tion online - Detail Indication:BMI 24.0-24.9, adult Start:12-Jan-2017 Instruction Type:Patient Education Patient Instructions Indication:BMI 24.0-24.9, adult Start:12-Jan-2017 Instruction Type:Provider Instructions for Treatment How to access health informa tion online Indication:BMI 26.0-26.9,adult Start:08-Sep-2016 Instruction Type:Patient Education How to access health informa tion online - Detail Indication:BMI 26.0-26.9,adult Start:08-Sep-2016 Instruction Type:Patient Education Patient Instructions Indication:BMI 26.0-26.9,adult Start:08-Sep-2016 Instruction Type:Provider Instructions for Treatment How to access health informa tion online Indication:Well woman exam (Renamed from Encounter for well woman exam) Start:05-May-2016 Instruction Type:Patient Education How to access health informa tion online - Detail Indication:Well woman exam (Renamed from Encounter for well woman exam) Start:05-May-2016 Instruction Type:Patient Education Patient Instructions Indication:Well woman exam (Renamed from Encounter for well woman exam) Start:05-May-2016 Instruction Type:Provider Instructions for Treatment How to access health informa tion online Indication:Acute cystitis without hematuria Start:23-Jul-2015 Instruction Type:Patient Education How to access health informa tion online - Detail Indication:Acute cystitis without hematuria Start:23-Jul-2015 Instruction Type:Patient Education Patient Instructions Indication:Acute cystitis without hematuria Start:23-Jul-2015 Instruction Type:Provider Instructions for Treatment How to access health informa tion online Indication:Thyroid nodule Start:18-Jun-2015 Instruction Type:Patient Education How to access health informa tion online - Detail Indication:Thyroid nodule Start:18-Jun-2015 Instruction Type:Patient Education Patient Instructions Indication:Thyroid nodule Start:18-Jun-2015 Instruction Type:Provider Instructions for Treatment How to access health informa tion online Indication:Well woman exam Start:16-Oct-2014 Instruction Type:Patient Education How to access health informa tion online - Detail Indication:Well woman exam Start:16-Oct-2014 Instruction Type:Patient Education Patient Instructions Indication:Well woman exam Start:16-Oct-2014 Instruction Type:Provider Instructions for Treatment Name Dates Details How to access health informa tion online Indication:Non-STEMI (non-ST elevated myocardial infarction) Start:28-Mar-2019 Instruction Type:Patient Education How to access health informa tion online - Detail Indication:Non-STEMI (non-ST elevated myocardial infarction) Start:28-Mar-2019 Instruction Type:Patient Education Patient Instructions Indication:Non-STEMI (non-ST elevated myocardial infarction) Start:28-Mar-2019 Instruction Type:Provider Instructions for Treatment How to access health informa tion online Indication:Current nonsmoker (Renamed from Current non-smoker) Start:18-Nov-2018 Instruction Type:Patient Education How to access health informa tion online - Detail Indication:Current nonsmoker (Renamed from Current non-smoker) Start:18-Nov-2018 Instruction Type:Patient Education Patient Instructions Indication:BMI 24.0-24.9, adult Start:18-Nov-2018 Instruction Type:Provider Instructions for Treatment How to access health informa tion online Indication:Non-STEMI (non-ST elevated myocardial infarction) Start:20-Sep-2018 Instruction Type:Patient Education How to access health informa tion online - Detail Indication:Non-STEMI (non-ST elevated myocardial infarction) Start:20-Sep-2018 Instruction Type:Patient Education Patient Instructions Indication:Non-STEMI (non-ST elevated myocardial infarction) Start:20-Sep-2018 Instruction Type:Provider Instructions for Treatment How to access health informa tion online Indication:Well woman exam (Renamed from Encounter for well woman exam) Start:08-Jun-2018 Instruction Type:Patient Education How to access health informa tion online - Detail Indication:Well woman exam (Renamed from Encounter for well woman exam) Start:08-Jun-2018 Instruction Type:Patient Education Patient Instructions Indication:Well woman exam (Renamed from Encounter for well woman exam) Start:08-Jun-2018 Instruction Type:Provider Instructions for Treatment How to access health informa tion online Indication:Non-STEMI (non-ST elevated myocardial infarction) Start:15-Mar-2018 Instruction Type:Patient Education How to access health informa tion online - Detail Indication:Non-STEMI (non-ST elevated myocardial infarction) Start:15-Mar-2018 Instruction Type:Patient Education Patient Instructions Indication:Non-STEMI (non-ST elevated myocardial infarction) Start:15-Mar-2018 Instruction Type:Provider Instructions for Treatment How to access health informa tion online Indication:Diverticulitis Start:08-Feb-2018 Instruction Type:Patient Education How to access health informa tion online - Detail Indication:Diverticulitis Start:08-Feb-2018 Instruction Type:Patient Education Patient Instructions Indication:Diverticulitis Start:08-Feb-2018 Instruction Type:Provider Instructions for Treatment How to access health informa tion online Indication:Well woman exam (Renamed from Encounter for well woman exam) Start:25-May-2017 Instruction Type:Patient Education How to access health informa tion online - Detail Indication:Well woman exam (Renamed from Encounter for well woman exam) Start:25-May-2017 Instruction Type:Patient Education Patient Instructions Indication:Well woman exam (Renamed from Encounter for well woman exam) Start:25-May-2017 Instruction Type:Provider Instructions for Treatment How to access health informa tion online Indication:BMI 24.0-24.9, adult Start:12-Jan-2017 Instruction Type:Patient Education How to access health informa tion online - Detail Indication:BMI 24.0-24.9, adult Start:12-Jan-2017 Instruction Type:Patient Education Patient Instructions Indication:BMI 24.0-24.9, adult Start:12-Jan-2017 Instruction Type:Provider Instructions for Treatment How to access health informa tion online Indication:BMI 26.0-26.9,adult Start:08-Sep-2016 Instruction Type:Patient Education How to access health informa tion online - Detail Indication:BMI 26.0-26.9,adult Start:08-Sep-2016 Instruction Type:Patient Education Patient Instructions Indication:BMI 26.0-26.9,adult Start:08-Sep-2016 Instruction Type:Provider Instructions for Treatment How to access health informa tion online Indication:Well woman exam (Renamed from Encounter for well woman exam) Start:05-May-2016 Instruction Type:Patient Education How to access health informa tion online - Detail Indication:Well woman exam (Renamed from Encounter for well woman exam) Start:05-May-2016 Instruction Type:Patient Education Patient Instructions Indication:Well woman exam (Renamed from Encounter for well woman exam) Start:05-May-2016 Instruction Type:Provider Instructions for Treatment How to access health informa tion online Indication:Acute cystitis without hematuria Start:23-Jul-2015 Instruction Type:Patient Education How to access health informa tion online - Detail Indication:Acute cystitis without hematuria Start:23-Jul-2015 Instruction Type:Patient Education Patient Instructions Indication:Acute cystitis without hematuria Start:23-Jul-2015 Instruction Type:Provider Instructions for Treatment How to access health informa tion online Indication:Thyroid nodule Start:18-Jun-2015 Instruction Type:Patient Education How to access health informa tion online - Detail Indication:Thyroid nodule Start:18-Jun-2015 Instruction Type:Patient Education Patient Instructions Indication:Thyroid nodule Start:18-Jun-2015 Instruction Type:Provider Instructions for Treatment How to access health informa tion online Indication:Well woman exam Start:16-Oct-2014 Instruction Type:Patient Education How to access health informa tion online - Detail Indication:Well woman exam Start:16-Oct-2014 Instruction Type:Patient Education Patient Instructions Indication:Well woman exam Start:16-Oct-2014 Instruction Type:Provider Instructions for Treatment Name Dates Details How to access health informa tion online Indication:Well woman exam (Renamed from Encounter for well woman exam) Start:15-Dec-2019 Instruction Type:Patient Education How to access health informa tion online - Detail Indication:Well woman exam (Renamed from Encounter for well woman exam) Start:15-Dec-2019 Instruction Type:Patient Education Patient Instructions Indication:Well woman exam (Renamed from Encounter for well woman exam) Start:15-Dec-2019 Instruction Type:Provider Instructions for Treatment How to access health informa tion online Indication:Non-STEMI (non-ST elevated myocardial infarction) Start:28-Mar-2019 Instruction Type:Patient Education How to access health informa tion online - Detail Indication:Non-STEMI (non-ST elevated myocardial infarction) Start:28-Mar-2019 Instruction Type:Patient Education Patient Instructions Indication:Non-STEMI (non-ST elevated myocardial infarction) Start:28-Mar-2019 Instruction Type:Provider Instructions for Treatment How to access health informa tion online Indication:Current nonsmoker (Renamed from Current non-smoker) Start:18-Nov-2018 Instruction Type:Patient Education How to access health informa tion online - Detail Indication:Current nonsmoker (Renamed from Current non-smoker) Start:18-Nov-2018 Instruction Type:Patient Education Patient Instructions Indication:BMI 24.0-24.9, adult Start:18-Nov-2018 Instruction Type:Provider Instructions for Treatment How to access health informa tion online Indication:Non-STEMI (non-ST elevated myocardial infarction) Start:20-Sep-2018 Instruction Type:Patient Education How to access health informa tion online - Detail Indication:Non-STEMI (non-ST elevated myocardial infarction) Start:20-Sep-2018 Instruction Type:Patient Education Patient Instructions Indication:Non-STEMI (non-ST elevated myocardial infarction) Start:20-Sep-2018 Instruction Type:Provider Instructions for Treatment How to access health informa tion online Indication:Well woman exam (Renamed from Encounter for well woman exam) Start:08-Jun-2018 Instruction Type:Patient Education How to access health informa tion online - Detail Indication:Well woman exam (Renamed from Encounter for well woman exam) Start:08-Jun-2018 Instruction Type:Patient Education Patient Instructions Indication:Well woman exam (Renamed from Encounter for well woman exam) Start:08-Jun-2018 Instruction Type:Provider Instructions for Treatment How to access health informa tion online Indication:Non-STEMI (non-ST elevated myocardial infarction) Start:15-Mar-2018 Instruction Type:Patient Education How to access health informa tion online - Detail Indication:Non-STEMI (non-ST elevated myocardial infarction) Start:15-Mar-2018 Instruction Type:Patient Education Patient Instructions Indication:Non-STEMI (non-ST elevated myocardial infarction) Start:15-Mar-2018 Instruction Type:Provider Instructions for Treatment How to access health informa tion online Indication:Diverticulitis Start:08-Feb-2018 Instruction Type:Patient Education How to access health informa tion online - Detail Indication:Diverticulitis Start:08-Feb-2018 Instruction Type:Patient Education Patient Instructions Indication:Diverticulitis Start:08-Feb-2018 Instruction Type:Provider Instructions for Treatment How to access health informa tion online Indication:Well woman exam (Renamed from Encounter for well woman exam) Start:25-May-2017 Instruction Type:Patient Education How to access health informa tion online - Detail Indication:Well woman exam (Renamed from Encounter for well woman exam) Start:25-May-2017 Instruction Type:Patient Education Patient Instructions Indication:Well woman exam (Renamed from Encounter for well woman exam) Start:25-May-2017 Instruction Type:Provider Instructions for Treatment How to access health informa tion online Indication:BMI 24.0-24.9, adult Start:12-Jan-2017 Instruction Type:Patient Education How to access health informa tion online - Detail Indication:BMI 24.0-24.9, adult Start:12-Jan-2017 Instruction Type:Patient Education Patient Instructions Indication:BMI 24.0-24.9, adult Start:12-Jan-2017 Instruction Type:Provider Instructions for Treatment How to access health informa tion online Indication:BMI 26.0-26.9,adult Start:08-Sep-2016 Instruction Type:Patient Education How to access health informa tion online - Detail Indication:BMI 26.0-26.9,adult Start:08-Sep-2016 Instruction Type:Patient Education Patient Instructions Indication:BMI 26.0-26.9,adult Start:08-Sep-2016 Instruction Type:Provider Instructions for Treatment How to access health informa tion online Indication:Well woman exam (Renamed from Encounter for well woman exam) Start:05-May-2016 Instruction Type:Patient Education How to access health informa tion online - Detail Indication:Well woman exam (Renamed from Encounter for well woman exam) Start:05-May-2016 Instruction Type:Patient Education Patient Instructions Indication:Well woman exam (Renamed from Encounter for well woman exam) Start:05-May-2016 Instruction Type:Provider Instructions for Treatment How to access health informa tion online Indication:Acute cystitis without hematuria Start:23-Jul-2015 Instruction Type:Patient Education How to access health informa tion online - Detail Indication:Acute cystitis without hematuria Start:23-Jul-2015 Instruction Type:Patient Education Patient Instructions Indication:Acute cystitis without hematuria Start:23-Jul-2015 Instruction Type:Provider Instructions for Treatment How to access health informa tion online Indication:Thyroid nodule Start:18-Jun-2015 Instruction Type:Patient Education How to access health informa tion online - Detail Indication:Thyroid nodule Start:18-Jun-2015 Instruction Type:Patient Education Patient Instructions Indication:Thyroid nodule Start:18-Jun-2015 Instruction Type:Provider Instructions for Treatment How to access health informa tion online Indication:Well woman exam Start:16-Oct-2014 Instruction Type:Patient Education How to access health informa tion online - Detail Indication:Well woman exam Start:16-Oct-2014 Instruction Type:Patient Education Patient Instructions Indication:Well woman exam Start:16-Oct-2014 Instruction Type:Provider Instructions for Treatment Name Dates Details How to access health informa tion online Indication:Well woman exam (Renamed from Encounter for well woman exam) Start:15-Dec-2019 Instruction Type:Patient Education How to access health informa tion online - Detail Indication:Well woman exam (Renamed from Encounter for well woman exam) Start:15-Dec-2019 Instruction Type:Patient Education Patient Instructions Indication:Well woman exam (Renamed from Encounter for well woman exam) Start:15-Dec-2019 Instruction Type:Provider Instructions for Treatment How to access health informa tion online Indication:Non-STEMI (non-ST elevated myocardial infarction) Start:28-Mar-2019 Instruction Type:Patient Education How to access health informa tion online - Detail Indication:Non-STEMI (non-ST elevated myocardial infarction) Start:28-Mar-2019 Instruction Type:Patient Education Patient Instructions Indication:Non-STEMI (non-ST elevated myocardial infarction) Start:28-Mar-2019 Instruction Type:Provider Instructions for Treatment How to access health informa tion online Indication:Current nonsmoker (Renamed from Current non-smoker) Start:18-Nov-2018 Instruction Type:Patient Education How to access health informa tion online - Detail Indication:Current nonsmoker (Renamed from Current non-smoker) Start:18-Nov-2018 Instruction Type:Patient Education Patient Instructions Indication:BMI 24.0-24.9, adult Start:18-Nov-2018 Instruction Type:Provider Instructions for Treatment How to access health informa tion online Indication:Non-STEMI (non-ST elevated myocardial infarction) Start:20-Sep-2018 Instruction Type:Patient Education How to access health informa tion online - Detail Indication:Non-STEMI (non-ST elevated myocardial infarction) Start:20-Sep-2018 Instruction Type:Patient Education Patient Instructions Indication:Non-STEMI (non-ST elevated myocardial infarction) Start:20-Sep-2018 Instruction Type:Provider Instructions for Treatment How to access health informa tion online Indication:Well woman exam (Renamed from Encounter for well woman exam) Start:08-Jun-2018 Instruction Type:Patient Education How to access health informa tion online - Detail Indication:Well woman exam (Renamed from Encounter for well woman exam) Start:08-Jun-2018 Instruction Type:Patient Education Patient Instructions Indication:Well woman exam (Renamed from Encounter for well woman exam) Start:08-Jun-2018 Instruction Type:Provider Instructions for Treatment How to access health informa tion online Indication:Non-STEMI (non-ST elevated myocardial infarction) Start:15-Mar-2018 Instruction Type:Patient Education How to access health informa tion online - Detail Indication:Non-STEMI (non-ST elevated myocardial infarction) Start:15-Mar-2018 Instruction Type:Patient Education Patient Instructions Indication:Non-STEMI (non-ST elevated myocardial infarction) Start:15-Mar-2018 Instruction Type:Provider Instructions for Treatment How to access health informa tion online Indication:Diverticulitis Start:08-Feb-2018 Instruction Type:Patient Education How to access health informa tion online - Detail Indication:Diverticulitis Start:08-Feb-2018 Instruction Type:Patient Education Patient Instructions Indication:Diverticulitis Start:08-Feb-2018 Instruction Type:Provider Instructions for Treatment How to access health informa tion online Indication:Well woman exam (Renamed from Encounter for well woman exam) Start:25-May-2017 Instruction Type:Patient Education How to access health informa tion online - Detail Indication:Well woman exam (Renamed from Encounter for well woman exam) Start:25-May-2017 Instruction Type:Patient Education Patient Instructions Indication:Well woman exam (Renamed from Encounter for well woman exam) Start:25-May-2017 Instruction Type:Provider Instructions for Treatment How to access health informa tion online Indication:BMI 24.0-24.9, adult Start:12-Jan-2017 Instruction Type:Patient Education How to access health informa tion online - Detail Indication:BMI 24.0-24.9, adult Start:12-Jan-2017 Instruction Type:Patient Education Patient Instructions Indication:BMI 24.0-24.9, adult Start:12-Jan-2017 Instruction Type:Provider Instructions for Treatment How to access health informa tion online Indication:BMI 26.0-26.9,adult Start:08-Sep-2016 Instruction Type:Patient Education How to access health informa tion online - Detail Indication:BMI 26.0-26.9,adult Start:08-Sep-2016 Instruction Type:Patient Education Patient Instructions Indication:BMI 26.0-26.9,adult Start:08-Sep-2016 Instruction Type:Provider Instructions for Treatment How to access health informa tion online Indication:Well woman exam (Renamed from Encounter for well woman exam) Start:05-May-2016 Instruction Type:Patient Education How to access health informa tion online - Detail Indication:Well woman exam (Renamed from Encounter for well woman exam) Start:05-May-2016 Instruction Type:Patient Education Patient Instructions Indication:Well woman exam (Renamed from Encounter for well woman exam) Start:05-May-2016 Instruction Type:Provider Instructions for Treatment How to access health informa tion online Indication:Acute cystitis without hematuria Start:23-Jul-2015 Instruction Type:Patient Education How to access health informa tion online - Detail Indication:Acute cystitis without hematuria Start:23-Jul-2015 Instruction Type:Patient Education Patient Instructions Indication:Acute cystitis without hematuria Start:23-Jul-2015 Instruction Type:Provider Instructions for Treatment How to access health informa tion online Indication:Thyroid nodule Start:18-Jun-2015 Instruction Type:Patient Education How to access health informa tion online - Detail Indication:Thyroid nodule Start:18-Jun-2015 Instruction Type:Patient Education Patient Instructions Indication:Thyroid nodule Start:18-Jun-2015 Instruction Type:Provider Instructions for Treatment How to access health informa tion online Indication:Well woman exam Start:16-Oct-2014 Instruction Type:Patient Education How to access health informa tion online - Detail Indication:Well woman exam Start:16-Oct-2014 Instruction Type:Patient Education Patient Instructions Indication:Well woman exam Start:16-Oct-2014 Instruction Type:Provider Instructions for Treatment Name Dates Details How to access health informa tion online Indication:Well woman exam (Renamed from Encounter for well woman exam) Start:15-Dec-2019 Instruction Type:Patient Education How to access health informa tion online - Detail Indication:Well woman exam (Renamed from Encounter for well woman exam) Start:15-Dec-2019 Instruction Type:Patient Education Patient Instructions Indication:Well woman exam (Renamed from Encounter for well woman exam) Start:15-Dec-2019 Instruction Type:Provider Instructions for Treatment How to access health informa tion online Indication:Non-STEMI (non-ST elevated myocardial infarction) Start:28-Mar-2019 Instruction Type:Patient Education How to access health informa tion online - Detail Indication:Non-STEMI (non-ST elevated myocardial infarction) Start:28-Mar-2019 Instruction Type:Patient Education Patient Instructions Indication:Non-STEMI (non-ST elevated myocardial infarction) Start:28-Mar-2019 Instruction Type:Provider Instructions for Treatment How to access health informa tion online Indication:Current nonsmoker (Renamed from Current non-smoker) Start:18-Nov-2018 Instruction Type:Patient Education How to access health informa tion online - Detail Indication:Current nonsmoker (Renamed from Current non-smoker) Start:18-Nov-2018 Instruction Type:Patient Education Patient Instructions Indication:BMI 24.0-24.9, adult Start:18-Nov-2018 Instruction Type:Provider Instructions for Treatment How to access health informa tion online Indication:Non-STEMI (non-ST elevated myocardial infarction) Start:20-Sep-2018 Instruction Type:Patient Education How to access health informa tion online - Detail Indication:Non-STEMI (non-ST elevated myocardial infarction) Start:20-Sep-2018 Instruction Type:Patient Education Patient Instructions Indication:Non-STEMI (non-ST elevated myocardial infarction) Start:20-Sep-2018 Instruction Type:Provider Instructions for Treatment How to access health informa tion online Indication:Well woman exam (Renamed from Encounter for well woman exam) Start:08-Jun-2018 Instruction Type:Patient Education How to access health informa tion online - Detail Indication:Well woman exam (Renamed from Encounter for well woman exam) Start:08-Jun-2018 Instruction Type:Patient Education Patient Instructions Indication:Well woman exam (Renamed from Encounter for well woman exam) Start:08-Jun-2018 Instruction Type:Provider Instructions for Treatment How to access health informa tion online Indication:Non-STEMI (non-ST elevated myocardial infarction) Start:15-Mar-2018 Instruction Type:Patient Education How to access health informa tion online - Detail Indication:Non-STEMI (non-ST elevated myocardial infarction) Start:15-Mar-2018 Instruction Type:Patient Education Patient Instructions Indication:Non-STEMI (non-ST elevated myocardial infarction) Start:15-Mar-2018 Instruction Type:Provider Instructions for Treatment How to access health informa tion online Indication:Diverticulitis Start:08-Feb-2018 Instruction Type:Patient Education How to access health informa tion online - Detail Indication:Diverticulitis Start:08-Feb-2018 Instruction Type:Patient Education Patient Instructions Indication:Diverticulitis Start:08-Feb-2018 Instruction Type:Provider Instructions for Treatment How to access health informa tion online Indication:Well woman exam (Renamed from Encounter for well woman exam) Start:25-May-2017 Instruction Type:Patient Education How to access health informa tion online - Detail Indication:Well woman exam (Renamed from Encounter for well woman exam) Start:25-May-2017 Instruction Type:Patient Education Patient Instructions Indication:Well woman exam (Renamed from Encounter for well woman exam) Start:25-May-2017 Instruction Type:Provider Instructions for Treatment How to access health informa tion online Indication:BMI 24.0-24.9, adult Start:12-Jan-2017 Instruction Type:Patient Education How to access health informa tion online - Detail Indication:BMI 24.0-24.9, adult Start:12-Jan-2017 Instruction Type:Patient Education Patient Instructions Indication:BMI 24.0-24.9, adult Start:12-Jan-2017 Instruction Type:Provider Instructions for Treatment How to access health informa tion online Indication:BMI 26.0-26.9,adult Start:08-Sep-2016 Instruction Type:Patient Education How to access health informa tion online - Detail Indication:BMI 26.0-26.9,adult Start:08-Sep-2016 Instruction Type:Patient Education Patient Instructions Indication:BMI 26.0-26.9,adult Start:08-Sep-2016 Instruction Type:Provider Instructions for Treatment How to access health informa tion online Indication:Well woman exam (Renamed from Encounter for well woman exam) Start:05-May-2016 Instruction Type:Patient Education How to access health informa tion online - Detail Indication:Well woman exam (Renamed from Encounter for well woman exam) Start:05-May-2016 Instruction Type:Patient Education Patient Instructions Indication:Well woman exam (Renamed from Encounter for well woman exam) Start:05-May-2016 Instruction Type:Provider Instructions for Treatment How to access health informa tion online Indication:Acute cystitis without hematuria Start:23-Jul-2015 Instruction Type:Patient Education How to access health informa tion online - Detail Indication:Acute cystitis without hematuria Start:23-Jul-2015 Instruction Type:Patient Education Patient Instructions Indication:Acute cystitis without hematuria Start:23-Jul-2015 Instruction Type:Provider Instructions for Treatment How to access health informa tion online Indication:Thyroid nodule Start:18-Jun-2015 Instruction Type:Patient Education How to access health informa tion online - Detail Indication:Thyroid nodule Start:18-Jun-2015 Instruction Type:Patient Education Patient Instructions Indication:Thyroid nodule Start:18-Jun-2015 Instruction Type:Provider Instructions for Treatment How to access health informa tion online Indication:Well woman exam Start:16-Oct-2014 Instruction Type:Patient Education How to access health informa tion online - Detail Indication:Well woman exam Start:16-Oct-2014 Instruction Type:Patient Education Patient Instructions Indication:Well woman exam Start:16-Oct-2014 Instruction Type:Provider Instructions for Treatment Name Dates Details How to access health informa tion online Indication:Well woman exam (Renamed from Encounter for well woman exam) Start:15-Dec-2019 Instruction Type:Patient Education How to access health informa tion online - Detail Indication:Well woman exam (Renamed from Encounter for well woman exam) Start:15-Dec-2019 Instruction Type:Patient Education Patient Instructions Indication:Well woman exam (Renamed from Encounter for well woman exam) Start:15-Dec-2019 Instruction Type:Provider Instructions for Treatment How to access health informa tion online Indication:Non-STEMI (non-ST elevated myocardial infarction) Start:28-Mar-2019 Instruction Type:Patient Education How to access health informa tion online - Detail Indication:Non-STEMI (non-ST elevated myocardial infarction) Start:28-Mar-2019 Instruction Type:Patient Education Patient Instructions Indication:Non-STEMI (non-ST elevated myocardial infarction) Start:28-Mar-2019 Instruction Type:Provider Instructions for Treatment How to access health informa tion online Indication:Current nonsmoker (Renamed from Current non-smoker) Start:18-Nov-2018 Instruction Type:Patient Education How to access health informa tion online - Detail Indication:Current nonsmoker (Renamed from Current non-smoker) Start:18-Nov-2018 Instruction Type:Patient Education Patient Instructions Indication:BMI 24.0-24.9, adult Start:18-Nov-2018 Instruction Type:Provider Instructions for Treatment How to access health informa tion online Indication:Non-STEMI (non-ST elevated myocardial infarction) Start:20-Sep-2018 Instruction Type:Patient Education How to access health informa tion online - Detail Indication:Non-STEMI (non-ST elevated myocardial infarction) Start:20-Sep-2018 Instruction Type:Patient Education Patient Instructions Indication:Non-STEMI (non-ST elevated myocardial infarction) Start:20-Sep-2018 Instruction Type:Provider Instructions for Treatment How to access health informa tion online Indication:Well woman exam (Renamed from Encounter for well woman exam) Start:08-Jun-2018 Instruction Type:Patient Education How to access health informa tion online - Detail Indication:Well woman exam (Renamed from Encounter for well woman exam) Start:08-Jun-2018 Instruction Type:Patient Education Patient Instructions Indication:Well woman exam (Renamed from Encounter for well woman exam) Start:08-Jun-2018 Instruction Type:Provider Instructions for Treatment How to access health informa tion online Indication:Non-STEMI (non-ST elevated myocardial infarction) Start:15-Mar-2018 Instruction Type:Patient Education How to access health informa tion online - Detail Indication:Non-STEMI (non-ST elevated myocardial infarction) Start:15-Mar-2018 Instruction Type:Patient Education Patient Instructions Indication:Non-STEMI (non-ST elevated myocardial infarction) Start:15-Mar-2018 Instruction Type:Provider Instructions for Treatment How to access health informa tion online Indication:Diverticulitis Start:08-Feb-2018 Instruction Type:Patient Education How to access health informa tion online - Detail Indication:Diverticulitis Start:08-Feb-2018 Instruction Type:Patient Education Patient Instructions Indication:Diverticulitis Start:08-Feb-2018 Instruction Type:Provider Instructions for Treatment How to access health informa tion online Indication:Well woman exam (Renamed from Encounter for well woman exam) Start:25-May-2017 Instruction Type:Patient Education How to access health informa tion online - Detail Indication:Well woman exam (Renamed from Encounter for well woman exam) Start:25-May-2017 Instruction Type:Patient Education Patient Instructions Indication:Well woman exam (Renamed from Encounter for well woman exam) Start:25-May-2017 Instruction Type:Provider Instructions for Treatment How to access health informa tion online Indication:BMI 24.0-24.9, adult Start:12-Jan-2017 Instruction Type:Patient Education How to access health informa tion online - Detail Indication:BMI 24.0-24.9, adult Start:12-Jan-2017 Instruction Type:Patient Education Patient Instructions Indication:BMI 24.0-24.9, adult Start:12-Jan-2017 Instruction Type:Provider Instructions for Treatment How to access health informa tion online Indication:BMI 26.0-26.9,adult Start:08-Sep-2016 Instruction Type:Patient Education How to access health informa tion online - Detail Indication:BMI 26.0-26.9,adult Start:08-Sep-2016 Instruction Type:Patient Education Patient Instructions Indication:BMI 26.0-26.9,adult Start:08-Sep-2016 Instruction Type:Provider Instructions for Treatment How to access health informa tion online Indication:Well woman exam (Renamed from Encounter for well woman exam) Start:05-May-2016 Instruction Type:Patient Education How to access health informa tion online - Detail Indication:Well woman exam (Renamed from Encounter for well woman exam) Start:05-May-2016 Instruction Type:Patient Education Patient Instructions Indication:Well woman exam (Renamed from Encounter for well woman exam) Start:05-May-2016 Instruction Type:Provider Instructions for Treatment How to access health informa tion online Indication:Acute cystitis without hematuria Start:23-Jul-2015 Instruction Type:Patient Education How to access health informa tion online - Detail Indication:Acute cystitis without hematuria Start:23-Jul-2015 Instruction Type:Patient Education Patient Instructions Indication:Acute cystitis without hematuria Start:23-Jul-2015 Instruction Type:Provider Instructions for Treatment How to access health informa tion online Indication:Thyroid nodule Start:18-Jun-2015 Instruction Type:Patient Education How to access health informa tion online - Detail Indication:Thyroid nodule Start:18-Jun-2015 Instruction Type:Patient Education Patient Instructions Indication:Thyroid nodule Start:18-Jun-2015 Instruction Type:Provider Instructions for Treatment How to access health informa tion online Indication:Well woman exam Start:16-Oct-2014 Instruction Type:Patient Education How to access health informa tion online - Detail Indication:Well woman exam Start:16-Oct-2014 Instruction Type:Patient Education Patient Instructions Indication:Well woman exam Start:16-Oct-2014 Instruction Type:Provider Instructions for Treatment Name Dates Details How to access health informa tion online Indication:Well woman exam (Renamed from Encounter for well woman exam) Start:15-Dec-2019 Instruction Type:Patient Education How to access health informa tion online - Detail Indication:Well woman exam (Renamed from Encounter for well woman exam) Start:15-Dec-2019 Instruction Type:Patient Education Patient Instructions Indication:Well woman exam (Renamed from Encounter for well woman exam) Start:15-Dec-2019 Instruction Type:Provider Instructions for Treatment How to access health informa tion online Indication:Non-STEMI (non-ST elevated myocardial infarction) Start:28-Mar-2019 Instruction Type:Patient Education How to access health informa tion online - Detail Indication:Non-STEMI (non-ST elevated myocardial infarction) Start:28-Mar-2019 Instruction Type:Patient Education Patient Instructions Indication:Non-STEMI (non-ST elevated myocardial infarction) Start:28-Mar-2019 Instruction Type:Provider Instructions for Treatment How to access health informa tion online Indication:Current nonsmoker (Renamed from Current non-smoker) Start:18-Nov-2018 Instruction Type:Patient Education How to access health informa tion online - Detail Indication:Current nonsmoker (Renamed from Current non-smoker) Start:18-Nov-2018 Instruction Type:Patient Education Patient Instructions Indication:BMI 24.0-24.9, adult Start:18-Nov-2018 Instruction Type:Provider Instructions for Treatment How to access health informa tion online Indication:Non-STEMI (non-ST elevated myocardial infarction) Start:20-Sep-2018 Instruction Type:Patient Education How to access health informa tion online - Detail Indication:Non-STEMI (non-ST elevated myocardial infarction) Start:20-Sep-2018 Instruction Type:Patient Education Patient Instructions Indication:Non-STEMI (non-ST elevated myocardial infarction) Start:20-Sep-2018 Instruction Type:Provider Instructions for Treatment How to access health informa tion online Indication:Well woman exam (Renamed from Encounter for well woman exam) Start:08-Jun-2018 Instruction Type:Patient Education How to access health informa tion online - Detail Indication:Well woman exam (Renamed from Encounter for well woman exam) Start:08-Jun-2018 Instruction Type:Patient Education Patient Instructions Indication:Well woman exam (Renamed from Encounter for well woman exam) Start:08-Jun-2018 Instruction Type:Provider Instructions for Treatment How to access health informa tion online Indication:Non-STEMI (non-ST elevated myocardial infarction) Start:15-Mar-2018 Instruction Type:Patient Education How to access health informa tion online - Detail Indication:Non-STEMI (non-ST elevated myocardial infarction) Start:15-Mar-2018 Instruction Type:Patient Education Patient Instructions Indication:Non-STEMI (non-ST elevated myocardial infarction) Start:15-Mar-2018 Instruction Type:Provider Instructions for Treatment How to access health informa tion online Indication:Diverticulitis Start:08-Feb-2018 Instruction Type:Patient Education How to access health informa tion online - Detail Indication:Diverticulitis Start:08-Feb-2018 Instruction Type:Patient Education Patient Instructions Indication:Diverticulitis Start:08-Feb-2018 Instruction Type:Provider Instructions for Treatment How to access health informa tion online Indication:Well woman exam (Renamed from Encounter for well woman exam) Start:25-May-2017 Instruction Type:Patient Education How to access health informa tion online - Detail Indication:Well woman exam (Renamed from Encounter for well woman exam) Start:25-May-2017 Instruction Type:Patient Education Patient Instructions Indication:Well woman exam (Renamed from Encounter for well woman exam) Start:25-May-2017 Instruction Type:Provider Instructions for Treatment How to access health informa tion online Indication:BMI 24.0-24.9, adult Start:12-Jan-2017 Instruction Type:Patient Education How to access health informa tion online - Detail Indication:BMI 24.0-24.9, adult Start:12-Jan-2017 Instruction Type:Patient Education Patient Instructions Indication:BMI 24.0-24.9, adult Start:12-Jan-2017 Instruction Type:Provider Instructions for Treatment How to access health informa tion online Indication:BMI 26.0-26.9,adult Start:08-Sep-2016 Instruction Type:Patient Education How to access health informa tion online - Detail Indication:BMI 26.0-26.9,adult Start:08-Sep-2016 Instruction Type:Patient Education Patient Instructions Indication:BMI 26.0-26.9,adult Start:08-Sep-2016 Instruction Type:Provider Instructions for Treatment How to access health informa tion online Indication:Well woman exam (Renamed from Encounter for well woman exam) Start:05-May-2016 Instruction Type:Patient Education How to access health informa tion online - Detail Indication:Well woman exam (Renamed from Encounter for well woman exam) Start:05-May-2016 Instruction Type:Patient Education Patient Instructions Indication:Well woman exam (Renamed from Encounter for well woman exam) Start:05-May-2016 Instruction Type:Provider Instructions for Treatment How to access health informa tion online Indication:Acute cystitis without hematuria Start:23-Jul-2015 Instruction Type:Patient Education How to access health informa tion online - Detail Indication:Acute cystitis without hematuria Start:23-Jul-2015 Instruction Type:Patient Education Patient Instructions Indication:Acute cystitis without hematuria Start:23-Jul-2015 Instruction Type:Provider Instructions for Treatment How to access health informa tion online Indication:Thyroid nodule Start:18-Jun-2015 Instruction Type:Patient Education How to access health informa tion online - Detail Indication:Thyroid nodule Start:18-Jun-2015 Instruction Type:Patient Education Patient Instructions Indication:Thyroid nodule Start:18-Jun-2015 Instruction Type:Provider Instructions for Treatment How to access health informa tion online Indication:Well woman exam Start:16-Oct-2014 Instruction Type:Patient Education How to access health informa tion online - Detail Indication:Well woman exam Start:16-Oct-2014 Instruction Type:Patient Education Patient Instructions Indication:Well woman exam Start:16-Oct-2014 Instruction Type:Provider Instructions for Treatment Name Dates Details How to access health informa tion online Indication:Well woman exam (Renamed from Encounter for well woman exam) Start:15-Dec-2019 Instruction Type:Patient Education How to access health informa tion online - Detail Indication:Well woman exam (Renamed from Encounter for well woman exam) Start:15-Dec-2019 Instruction Type:Patient Education Patient Instructions Indication:Well woman exam (Renamed from Encounter for well woman exam) Start:15-Dec-2019 Instruction Type:Provider Instructions for Treatment How to access health informa tion online Indication:Non-STEMI (non-ST elevated myocardial infarction) Start:28-Mar-2019 Instruction Type:Patient Education How to access health informa tion online - Detail Indication:Non-STEMI (non-ST elevated myocardial infarction) Start:28-Mar-2019 Instruction Type:Patient Education Patient Instructions Indication:Non-STEMI (non-ST elevated myocardial infarction) Start:28-Mar-2019 Instruction Type:Provider Instructions for Treatment How to access health informa tion online Indication:Current nonsmoker (Renamed from Current non-smoker) Start:18-Nov-2018 Instruction Type:Patient Education How to access health informa tion online - Detail Indication:Current nonsmoker (Renamed from Current non-smoker) Start:18-Nov-2018 Instruction Type:Patient Education Patient Instructions Indication:BMI 24.0-24.9, adult Start:18-Nov-2018 Instruction Type:Provider Instructions for Treatment How to access health informa tion online Indication:Non-STEMI (non-ST elevated myocardial infarction) Start:20-Sep-2018 Instruction Type:Patient Education How to access health informa tion online - Detail Indication:Non-STEMI (non-ST elevated myocardial infarction) Start:20-Sep-2018 Instruction Type:Patient Education Patient Instructions Indication:Non-STEMI (non-ST elevated myocardial infarction) Start:20-Sep-2018 Instruction Type:Provider Instructions for Treatment How to access health informa tion online Indication:Well woman exam (Renamed from Encounter for well woman exam) Start:08-Jun-2018 Instruction Type:Patient Education How to access health informa tion online - Detail Indication:Well woman exam (Renamed from Encounter for well woman exam) Start:08-Jun-2018 Instruction Type:Patient Education Patient Instructions Indication:Well woman exam (Renamed from Encounter for well woman exam) Start:08-Jun-2018 Instruction Type:Provider Instructions for Treatment How to access health informa tion online Indication:Non-STEMI (non-ST elevated myocardial infarction) Start:15-Mar-2018 Instruction Type:Patient Education How to access health informa tion online - Detail Indication:Non-STEMI (non-ST elevated myocardial infarction) Start:15-Mar-2018 Instruction Type:Patient Education Patient Instructions Indication:Non-STEMI (non-ST elevated myocardial infarction) Start:15-Mar-2018 Instruction Type:Provider Instructions for Treatment How to access health informa tion online Indication:Diverticulitis Start:08-Feb-2018 Instruction Type:Patient Education How to access health informa tion online - Detail Indication:Diverticulitis Start:08-Feb-2018 Instruction Type:Patient Education Patient Instructions Indication:Diverticulitis Start:08-Feb-2018 Instruction Type:Provider Instructions for Treatment How to access health informa tion online Indication:Well woman exam (Renamed from Encounter for well woman exam) Start:25-May-2017 Instruction Type:Patient Education How to access health informa tion online - Detail Indication:Well woman exam (Renamed from Encounter for well woman exam) Start:25-May-2017 Instruction Type:Patient Education Patient Instructions Indication:Well woman exam (Renamed from Encounter for well woman exam) Start:25-May-2017 Instruction Type:Provider Instructions for Treatment How to access health informa tion online Indication:BMI 24.0-24.9, adult Start:12-Jan-2017 Instruction Type:Patient Education How to access health informa tion online - Detail Indication:BMI 24.0-24.9, adult Start:12-Jan-2017 Instruction Type:Patient Education Patient Instructions Indication:BMI 24.0-24.9, adult Start:12-Jan-2017 Instruction Type:Provider Instructions for Treatment How to access health informa tion online Indication:BMI 26.0-26.9,adult Start:08-Sep-2016 Instruction Type:Patient Education How to access health informa tion online - Detail Indication:BMI 26.0-26.9,adult Start:08-Sep-2016 Instruction Type:Patient Education Patient Instructions Indication:BMI 26.0-26.9,adult Start:08-Sep-2016 Instruction Type:Provider Instructions for Treatment How to access health informa tion online Indication:Well woman exam (Renamed from Encounter for well woman exam) Start:05-May-2016 Instruction Type:Patient Education How to access health informa tion online - Detail Indication:Well woman exam (Renamed from Encounter for well woman exam) Start:05-May-2016 Instruction Type:Patient Education Patient Instructions Indication:Well woman exam (Renamed from Encounter for well woman exam) Start:05-May-2016 Instruction Type:Provider Instructions for Treatment How to access health informa tion online Indication:Acute cystitis without hematuria Start:23-Jul-2015 Instruction Type:Patient Education How to access health informa tion online - Detail Indication:Acute cystitis without hematuria Start:23-Jul-2015 Instruction Type:Patient Education Patient Instructions Indication:Acute cystitis without hematuria Start:23-Jul-2015 Instruction Type:Provider Instructions for Treatment How to access health informa tion online Indication:Thyroid nodule Start:18-Jun-2015 Instruction Type:Patient Education How to access health informa tion online - Detail Indication:Thyroid nodule Start:18-Jun-2015 Instruction Type:Patient Education Patient Instructions Indication:Thyroid nodule Start:18-Jun-2015 Instruction Type:Provider Instructions for Treatment How to access health informa tion online Indication:Well woman exam Start:16-Oct-2014 Instruction Type:Patient Education How to access health informa tion online - Detail Indication:Well woman exam Start:16-Oct-2014 Instruction Type:Patient Education Patient Instructions Indication:Well woman exam Start:16-Oct-2014 Instruction Type:Provider Instructions for Treatment Name Dates Details How to access health informa tion online Indication:Well woman exam (Renamed from Encounter for well woman exam) Start:15-Dec-2019 Instruction Type:Patient Education How to access health informa tion online - Detail Indication:Well woman exam (Renamed from Encounter for well woman exam) Start:15-Dec-2019 Instruction Type:Patient Education Patient Instructions Indication:Well woman exam (Renamed from Encounter for well woman exam) Start:15-Dec-2019 Instruction Type:Provider Instructions for Treatment How to access health informa tion online Indication:Non-STEMI (non-ST elevated myocardial infarction) Start:28-Mar-2019 Instruction Type:Patient Education How to access health informa tion online - Detail Indication:Non-STEMI (non-ST elevated myocardial infarction) Start:28-Mar-2019 Instruction Type:Patient Education Patient Instructions Indication:Non-STEMI (non-ST elevated myocardial infarction) Start:28-Mar-2019 Instruction Type:Provider Instructions for Treatment How to access health informa tion online Indication:Current nonsmoker (Renamed from Current non-smoker) Start:18-Nov-2018 Instruction Type:Patient Education How to access health informa tion online - Detail Indication:Current nonsmoker (Renamed from Current non-smoker) Start:18-Nov-2018 Instruction Type:Patient Education Patient Instructions Indication:BMI 24.0-24.9, adult Start:18-Nov-2018 Instruction Type:Provider Instructions for Treatment How to access health informa tion online Indication:Non-STEMI (non-ST elevated myocardial infarction) Start:20-Sep-2018 Instruction Type:Patient Education How to access health informa tion online - Detail Indication:Non-STEMI (non-ST elevated myocardial infarction) Start:20-Sep-2018 Instruction Type:Patient Education Patient Instructions Indication:Non-STEMI (non-ST elevated myocardial infarction) Start:20-Sep-2018 Instruction Type:Provider Instructions for Treatment How to access health informa tion online Indication:Well woman exam (Renamed from Encounter for well woman exam) Start:08-Jun-2018 Instruction Type:Patient Education How to access health informa tion online - Detail Indication:Well woman exam (Renamed from Encounter for well woman exam) Start:08-Jun-2018 Instruction Type:Patient Education Patient Instructions Indication:Well woman exam (Renamed from Encounter for well woman exam) Start:08-Jun-2018 Instruction Type:Provider Instructions for Treatment How to access health informa tion online Indication:Non-STEMI (non-ST elevated myocardial infarction) Start:15-Mar-2018 Instruction Type:Patient Education How to access health informa tion online - Detail Indication:Non-STEMI (non-ST elevated myocardial infarction) Start:15-Mar-2018 Instruction Type:Patient Education Patient Instructions Indication:Non-STEMI (non-ST elevated myocardial infarction) Start:15-Mar-2018 Instruction Type:Provider Instructions for Treatment How to access health informa tion online Indication:Diverticulitis Start:08-Feb-2018 Instruction Type:Patient Education How to access health informa tion online - Detail Indication:Diverticulitis Start:08-Feb-2018 Instruction Type:Patient Education Patient Instructions Indication:Diverticulitis Start:08-Feb-2018 Instruction Type:Provider Instructions for Treatment How to access health informa tion online Indication:Well woman exam (Renamed from Encounter for well woman exam) Start:25-May-2017 Instruction Type:Patient Education How to access health informa tion online - Detail Indication:Well woman exam (Renamed from Encounter for well woman exam) Start:25-May-2017 Instruction Type:Patient Education Patient Instructions Indication:Well woman exam (Renamed from Encounter for well woman exam) Start:25-May-2017 Instruction Type:Provider Instructions for Treatment How to access health informa tion online Indication:BMI 24.0-24.9, adult Start:12-Jan-2017 Instruction Type:Patient Education How to access health informa tion online - Detail Indication:BMI 24.0-24.9, adult Start:12-Jan-2017 Instruction Type:Patient Education Patient Instructions Indication:BMI 24.0-24.9, adult Start:12-Jan-2017 Instruction Type:Provider Instructions for Treatment How to access health informa tion online Indication:BMI 26.0-26.9,adult Start:08-Sep-2016 Instruction Type:Patient Education How to access health informa tion online - Detail Indication:BMI 26.0-26.9,adult Start:08-Sep-2016 Instruction Type:Patient Education Patient Instructions Indication:BMI 26.0-26.9,adult Start:08-Sep-2016 Instruction Type:Provider Instructions for Treatment How to access health informa tion online Indication:Well woman exam (Renamed from Encounter for well woman exam) Start:05-May-2016 Instruction Type:Patient Education How to access health informa tion online - Detail Indication:Well woman exam (Renamed from Encounter for well woman exam) Start:05-May-2016 Instruction Type:Patient Education Patient Instructions Indication:Well woman exam (Renamed from Encounter for well woman exam) Start:05-May-2016 Instruction Type:Provider Instructions for Treatment How to access health informa tion online Indication:Acute cystitis without hematuria Start:23-Jul-2015 Instruction Type:Patient Education How to access health informa tion online - Detail Indication:Acute cystitis without hematuria Start:23-Jul-2015 Instruction Type:Patient Education Patient Instructions Indication:Acute cystitis without hematuria Start:23-Jul-2015 Instruction Type:Provider Instructions for Treatment How to access health informa tion online Indication:Thyroid nodule Start:18-Jun-2015 Instruction Type:Patient Education How to access health informa tion online - Detail Indication:Thyroid nodule Start:18-Jun-2015 Instruction Type:Patient Education Patient Instructions Indication:Thyroid nodule Start:18-Jun-2015 Instruction Type:Provider Instructions for Treatment How to access health informa tion online Indication:Well woman exam Start:16-Oct-2014 Instruction Type:Patient Education How to access health informa tion online - Detail Indication:Well woman exam Start:16-Oct-2014 Instruction Type:Patient Education Patient Instructions Indication:Well woman exam Start:16-Oct-2014 Instruction Type:Provider Instructions for Treatment Name Dates Details How to access health informa tion online Indication:Well woman exam (Renamed from Encounter for well woman exam) Start:15-Dec-2019 Instruction Type:Patient Education How to access health informa tion online - Detail Indication:Well woman exam (Renamed from Encounter for well woman exam) Start:15-Dec-2019 Instruction Type:Patient Education Patient Instructions Indication:Well woman exam (Renamed from Encounter for well woman exam) Start:15-Dec-2019 Instruction Type:Provider Instructions for Treatment How to access health informa tion online Indication:Non-STEMI (non-ST elevated myocardial infarction) Start:28-Mar-2019 Instruction Type:Patient Education How to access health informa tion online - Detail Indication:Non-STEMI (non-ST elevated myocardial infarction) Start:28-Mar-2019 Instruction Type:Patient Education Patient Instructions Indication:Non-STEMI (non-ST elevated myocardial infarction) Start:28-Mar-2019 Instruction Type:Provider Instructions for Treatment How to access health informa tion online Indication:Current nonsmoker (Renamed from Current non-smoker) Start:18-Nov-2018 Instruction Type:Patient Education How to access health informa tion online - Detail Indication:Current nonsmoker (Renamed from Current non-smoker) Start:18-Nov-2018 Instruction Type:Patient Education Patient Instructions Indication:BMI 24.0-24.9, adult Start:18-Nov-2018 Instruction Type:Provider Instructions for Treatment How to access health informa tion online Indication:Non-STEMI (non-ST elevated myocardial infarction) Start:20-Sep-2018 Instruction Type:Patient Education How to access health informa tion online - Detail Indication:Non-STEMI (non-ST elevated myocardial infarction) Start:20-Sep-2018 Instruction Type:Patient Education Patient Instructions Indication:Non-STEMI (non-ST elevated myocardial infarction) Start:20-Sep-2018 Instruction Type:Provider Instructions for Treatment How to access health informa tion online Indication:Well woman exam (Renamed from Encounter for well woman exam) Start:08-Jun-2018 Instruction Type:Patient Education How to access health informa tion online - Detail Indication:Well woman exam (Renamed from Encounter for well woman exam) Start:08-Jun-2018 Instruction Type:Patient Education Patient Instructions Indication:Well woman exam (Renamed from Encounter for well woman exam) Start:08-Jun-2018 Instruction Type:Provider Instructions for Treatment How to access health informa tion online Indication:Non-STEMI (non-ST elevated myocardial infarction) Start:15-Mar-2018 Instruction Type:Patient Education How to access health informa tion online - Detail Indication:Non-STEMI (non-ST elevated myocardial infarction) Start:15-Mar-2018 Instruction Type:Patient Education Patient Instructions Indication:Non-STEMI (non-ST elevated myocardial infarction) Start:15-Mar-2018 Instruction Type:Provider Instructions for Treatment How to access health informa tion online Indication:Diverticulitis Start:08-Feb-2018 Instruction Type:Patient Education How to access health informa tion online - Detail Indication:Diverticulitis Start:08-Feb-2018 Instruction Type:Patient Education Patient Instructions Indication:Diverticulitis Start:08-Feb-2018 Instruction Type:Provider Instructions for Treatment How to access health informa tion online Indication:Well woman exam (Renamed from Encounter for well woman exam) Start:25-May-2017 Instruction Type:Patient Education How to access health informa tion online - Detail Indication:Well woman exam (Renamed from Encounter for well woman exam) Start:25-May-2017 Instruction Type:Patient Education Patient Instructions Indication:Well woman exam (Renamed from Encounter for well woman exam) Start:25-May-2017 Instruction Type:Provider Instructions for Treatment How to access health informa tion online Indication:BMI 24.0-24.9, adult Start:12-Jan-2017 Instruction Type:Patient Education How to access health informa tion online - Detail Indication:BMI 24.0-24.9, adult Start:12-Jan-2017 Instruction Type:Patient Education Patient Instructions Indication:BMI 24.0-24.9, adult Start:12-Jan-2017 Instruction Type:Provider Instructions for Treatment How to access health informa tion online Indication:BMI 26.0-26.9,adult Start:08-Sep-2016 Instruction Type:Patient Education How to access health informa tion online - Detail Indication:BMI 26.0-26.9,adult Start:08-Sep-2016 Instruction Type:Patient Education Patient Instructions Indication:BMI 26.0-26.9,adult Start:08-Sep-2016 Instruction Type:Provider Instructions for Treatment How to access health informa tion online Indication:Well woman exam (Renamed from Encounter for well woman exam) Start:05-May-2016 Instruction Type:Patient Education How to access health informa tion online - Detail Indication:Well woman exam (Renamed from Encounter for well woman exam) Start:05-May-2016 Instruction Type:Patient Education Patient Instructions Indication:Well woman exam (Renamed from Encounter for well woman exam) Start:05-May-2016 Instruction Type:Provider Instructions for Treatment How to access health informa tion online Indication:Acute cystitis without hematuria Start:23-Jul-2015 Instruction Type:Patient Education How to access health informa tion online - Detail Indication:Acute cystitis without hematuria Start:23-Jul-2015 Instruction Type:Patient Education Patient Instructions Indication:Acute cystitis without hematuria Start:23-Jul-2015 Instruction Type:Provider Instructions for Treatment How to access health informa tion online Indication:Thyroid nodule Start:18-Jun-2015 Instruction Type:Patient Education How to access health informa tion online - Detail Indication:Thyroid nodule Start:18-Jun-2015 Instruction Type:Patient Education Patient Instructions Indication:Thyroid nodule Start:18-Jun-2015 Instruction Type:Provider Instructions for Treatment How to access health informa tion online Indication:Well woman exam Start:16-Oct-2014 Instruction Type:Patient Education How to access health informa tion online - Detail Indication:Well woman exam Start:16-Oct-2014 Instruction Type:Patient Education Patient Instructions Indication:Well woman exam Start:16-Oct-2014 Instruction Type:Provider Instructions for Treatment Name Dates Details Patient Instructions Indication:Hypercholesteremia Start:19-Apr-2020 Instruction Type:Provider Instructions for Treatment How to Access Health Informa tion Online using Patient Portal and [employer]rd [employer] Apps Indication:Hypercholesteremia Start:19-Apr-2020 Instruction Type:Patient Education How to access health informa tion online Indication:Well woman exam (Renamed from Encounter for well woman exam) Start:15-Dec-2019 Instruction Type:Patient Education How to access health informa tion online - Detail Indication:Well woman exam (Renamed from Encounter for well woman exam) Start:15-Dec-2019 Instruction Type:Patient Education Patient Instructions Indication:Well woman exam (Renamed from Encounter for well woman exam) Start:15-Dec-2019 Instruction Type:Provider Instructions for Treatment How to access health informa tion online Indication:Non-STEMI (non-ST elevated myocardial infarction) Start:28-Mar-2019 Instruction Type:Patient Education How to access health informa tion online - Detail Indication:Non-STEMI (non-ST elevated myocardial infarction) Start:28-Mar-2019 Instruction Type:Patient Education Patient Instructions Indication:Non-STEMI (non-ST elevated myocardial infarction) Start:28-Mar-2019 Instruction Type:Provider Instructions for Treatment How to access health informa tion online Indication:Current nonsmoker (Renamed from Current non-smoker) Start:18-Nov-2018 Instruction Type:Patient Education How to access health informa tion online - Detail Indication:Current nonsmoker (Renamed from Current non-smoker) Start:18-Nov-2018 Instruction Type:Patient Education Patient Instructions Indication:BMI 24.0-24.9, adult Start:18-Nov-2018 Instruction Type:Provider Instructions for Treatment How to access health informa tion online Indication:Non-STEMI (non-ST elevated myocardial infarction) Start:20-Sep-2018 Instruction Type:Patient Education How to access health informa tion online - Detail Indication:Non-STEMI (non-ST elevated myocardial infarction) Start:20-Sep-2018 Instruction Type:Patient Education Patient Instructions Indication:Non-STEMI (non-ST elevated myocardial infarction) Start:20-Sep-2018 Instruction Type:Provider Instructions for Treatment How to access health informa tion online Indication:Well woman exam (Renamed from Encounter for well woman exam) Start:08-Jun-2018 Instruction Type:Patient Education How to access health informa tion online - Detail Indication:Well woman exam (Renamed from Encounter for well woman exam) Start:08-Jun-2018 Instruction Type:Patient Education Patient Instructions Indication:Well woman exam (Renamed from Encounter for well woman exam) Start:08-Jun-2018 Instruction Type:Provider Instructions for Treatment How to access health informa tion online Indication:Non-STEMI (non-ST elevated myocardial infarction) Start:15-Mar-2018 Instruction Type:Patient Education How to access health informa tion online - Detail Indication:Non-STEMI (non-ST elevated myocardial infarction) Start:15-Mar-2018 Instruction Type:Patient Education Patient Instructions Indication:Non-STEMI (non-ST elevated myocardial infarction) Start:15-Mar-2018 Instruction Type:Provider Instructions for Treatment How to access health informa tion online Indication:Diverticulitis Start:08-Feb-2018 Instruction Type:Patient Education How to access health informa tion online - Detail Indication:Diverticulitis Start:08-Feb-2018 Instruction Type:Patient Education Patient Instructions Indication:Diverticulitis Start:08-Feb-2018 Instruction Type:Provider Instructions for Treatment How to access health informa tion online Indication:Well woman exam (Renamed from Encounter for well woman exam) Start:25-May-2017 Instruction Type:Patient Education How to access health informa tion online - Detail Indication:Well woman exam (Renamed from Encounter for well woman exam) Start:25-May-2017 Instruction Type:Patient Education Patient Instructions Indication:Well woman exam (Renamed from Encounter for well woman exam) Start:25-May-2017 Instruction Type:Provider Instructions for Treatment How to access health informa tion online Indication:BMI 24.0-24.9, adult Start:12-Jan-2017 Instruction Type:Patient Education How to access health informa tion online - Detail Indication:BMI 24.0-24.9, adult Start:12-Jan-2017 Instruction Type:Patient Education Patient Instructions Indication:BMI 24.0-24.9, adult Start:12-Jan-2017 Instruction Type:Provider Instructions for Treatment How to access health informa tion online Indication:BMI 26.0-26.9,adult Start:08-Sep-2016 Instruction Type:Patient Education How to access health informa tion online - Detail Indication:BMI 26.0-26.9,adult Start:08-Sep-2016 Instruction Type:Patient Education Patient Instructions Indication:BMI 26.0-26.9,adult Start:08-Sep-2016 Instruction Type:Provider Instructions for Treatment How to access health informa tion online Indication:Well woman exam (Renamed from Encounter for well woman exam) Start:05-May-2016 Instruction Type:Patient Education How to access health informa tion online - Detail Indication:Well woman exam (Renamed from Encounter for well woman exam) Start:05-May-2016 Instruction Type:Patient Education Patient Instructions Indication:Well woman exam (Renamed from Encounter for well woman exam) Start:05-May-2016 Instruction Type:Provider Instructions for Treatment How to access health informa tion online Indication:Acute cystitis without hematuria Start:23-Jul-2015 Instruction Type:Patient Education How to access health informa tion online - Detail Indication:Acute cystitis without hematuria Start:23-Jul-2015 Instruction Type:Patient Education Patient Instructions Indication:Acute cystitis without hematuria Start:23-Jul-2015 Instruction Type:Provider Instructions for Treatment How to access health informa tion online Indication:Thyroid nodule Start:18-Jun-2015 Instruction Type:Patient Education How to access health informa tion online - Detail Indication:Thyroid nodule Start:18-Jun-2015 Instruction Type:Patient Education Patient Instructions Indication:Thyroid nodule Start:18-Jun-2015 Instruction Type:Provider Instructions for Treatment How to access health informa tion online Indication:Well woman exam Start:16-Oct-2014 Instruction Type:Patient Education How to access health informa tion online - Detail Indication:Well woman exam Start:16-Oct-2014 Instruction Type:Patient Education Patient Instructions Indication:Well woman exam Start:16-Oct-2014 Instruction Type:Provider Instructions for Treatment Name Dates Details How to access health informa tion online Indication:Current nonsmoker (Renamed from Current non-smoker) Start:18-Nov-2018 Instruction Type:Patient Education How to access health informa tion online - Detail Indication:Current nonsmoker (Renamed from Current non-smoker) Start:18-Nov-2018 Instruction Type:Patient Education Patient Instructions Indication:BMI 24.0-24.9, adult Start:18-Nov-2018 Instruction Type:Provider Instructions for Treatment How to access health informa tion online Indication:Non-STEMI (non-ST elevated myocardial infarction) Start:20-Sep-2018 Instruction Type:Patient Education How to access health informa tion online - Detail Indication:Non-STEMI (non-ST elevated myocardial infarction) Start:20-Sep-2018 Instruction Type:Patient Education Patient Instructions Indication:Non-STEMI (non-ST elevated myocardial infarction) Start:20-Sep-2018 Instruction Type:Provider Instructions for Treatment How to access health informa tion online Indication:Well woman exam (Renamed from Encounter for well woman exam) Start:08-Jun-2018 Instruction Type:Patient Education How to access health informa tion online - Detail Indication:Well woman exam (Renamed from Encounter for well woman exam) Start:08-Jun-2018 Instruction Type:Patient Education Patient Instructions Indication:Well woman exam (Renamed from Encounter for well woman exam) Start:08-Jun-2018 Instruction Type:Provider Instructions for Treatment How to access health informa tion online Indication:Non-STEMI (non-ST elevated myocardial infarction) Start:15-Mar-2018 Instruction Type:Patient Education How to access health informa tion online - Detail Indication:Non-STEMI (non-ST elevated myocardial infarction) Start:15-Mar-2018 Instruction Type:Patient Education Patient Instructions Indication:Non-STEMI (non-ST elevated myocardial infarction) Start:15-Mar-2018 Instruction Type:Provider Instructions for Treatment How to access health informa tion online Indication:Diverticulitis Start:08-Feb-2018 Instruction Type:Patient Education How to access health informa tion online - Detail Indication:Diverticulitis Start:08-Feb-2018 Instruction Type:Patient Education Patient Instructions Indication:Diverticulitis Start:08-Feb-2018 Instruction Type:Provider Instructions for Treatment How to access health informa tion online Indication:Well woman exam (Renamed from Encounter for well woman exam) Start:25-May-2017 Instruction Type:Patient Education How to access health informa tion online - Detail Indication:Well woman exam (Renamed from Encounter for well woman exam) Start:25-May-2017 Instruction Type:Patient Education Patient Instructions Indication:Well woman exam (Renamed from Encounter for well woman exam) Start:25-May-2017 Instruction Type:Provider Instructions for Treatment How to access health informa tion online Indication:BMI 24.0-24.9, adult Start:12-Jan-2017 Instruction Type:Patient Education How to access health informa tion online - Detail Indication:BMI 24.0-24.9, adult Start:12-Jan-2017 Instruction Type:Patient Education Patient Instructions Indication:BMI 24.0-24.9, adult Start:12-Jan-2017 Instruction Type:Provider Instructions for Treatment How to access health informa tion online Indication:BMI 26.0-26.9,adult Start:08-Sep-2016 Instruction Type:Patient Education How to access health informa tion online - Detail Indication:BMI 26.0-26.9,adult Start:08-Sep-2016 Instruction Type:Patient Education Patient Instructions Indication:BMI 26.0-26.9,adult Start:08-Sep-2016 Instruction Type:Provider Instructions for Treatment How to access health informa tion online Indication:Well woman exam (Renamed from Encounter for well woman exam) Start:05-May-2016 Instruction Type:Patient Education How to access health informa tion online - Detail Indication:Well woman exam (Renamed from Encounter for well woman exam) Start:05-May-2016 Instruction Type:Patient Education Patient Instructions Indication:Well woman exam (Renamed from Encounter for well woman exam) Start:05-May-2016 Instruction Type:Provider Instructions for Treatment How to access health informa tion online Indication:Acute cystitis without hematuria Start:23-Jul-2015 Instruction Type:Patient Education How to access health informa tion online - Detail Indication:Acute cystitis without hematuria Start:23-Jul-2015 Instruction Type:Patient Education Patient Instructions Indication:Acute cystitis without hematuria Start:23-Jul-2015 Instruction Type:Provider Instructions for Treatment How to access health informa tion online Indication:Thyroid nodule Start:18-Jun-2015 Instruction Type:Patient Education How to access health informa tion online - Detail Indication:Thyroid nodule Start:18-Jun-2015 Instruction Type:Patient Education Patient Instructions Indication:Thyroid nodule Start:18-Jun-2015 Instruction Type:Provider Instructions for Treatment How to access health informa tion online Indication:Well woman exam Start:16-Oct-2014 Instruction Type:Patient Education How to access health informa tion online - Detail Indication:Well woman exam Start:16-Oct-2014 Instruction Type:Patient Education Patient Instructions Indication:Well woman exam Start:16-Oct-2014 Instruction Type:Provider Instructions for Treatment Name Dates Details How to access health informa tion online Indication:Non-STEMI (non-ST elevated myocardial infarction) Start:20-Sep-2018 Instruction Type:Patient Education How to access health informa tion online - Detail Indication:Non-STEMI (non-ST elevated myocardial infarction) Start:20-Sep-2018 Instruction Type:Patient Education Patient Instructions Indication:Non-STEMI (non-ST elevated myocardial infarction) Start:20-Sep-2018 Instruction Type:Provider Instructions for Treatment How to access health informa tion online Indication:Well woman exam (Renamed from Encounter for well woman exam) Start:08-Jun-2018 Instruction Type:Patient Education How to access health informa tion online - Detail Indication:Well woman exam (Renamed from Encounter for well woman exam) Start:08-Jun-2018 Instruction Type:Patient Education Patient Instructions Indication:Well woman exam (Renamed from Encounter for well woman exam) Start:08-Jun-2018 Instruction Type:Provider Instructions for Treatment How to access health informa tion online Indication:Non-STEMI (non-ST elevated myocardial infarction) Start:15-Mar-2018 Instruction Type:Patient Education How to access health informa tion online - Detail Indication:Non-STEMI (non-ST elevated myocardial infarction) Start:15-Mar-2018 Instruction Type:Patient Education Patient Instructions Indication:Non-STEMI (non-ST elevated myocardial infarction) Start:15-Mar-2018 Instruction Type:Provider Instructions for Treatment How to access health informa tion online Indication:Diverticulitis Start:08-Feb-2018 Instruction Type:Patient Education How to access health informa tion online - Detail Indication:Diverticulitis Start:08-Feb-2018 Instruction Type:Patient Education Patient Instructions Indication:Diverticulitis Start:08-Feb-2018 Instruction Type:Provider Instructions for Treatment How to access health informa tion online Indication:Well woman exam (Renamed from Encounter for well woman exam) Start:25-May-2017 Instruction Type:Patient Education How to access health informa tion online - Detail Indication:Well woman exam (Renamed from Encounter for well woman exam) Start:25-May-2017 Instruction Type:Patient Education Patient Instructions Indication:Well woman exam (Renamed from Encounter for well woman exam) Start:25-May-2017 Instruction Type:Provider Instructions for Treatment How to access health informa tion online Indication:BMI 24.0-24.9, adult Start:12-Jan-2017 Instruction Type:Patient Education How to access health informa tion online - Detail Indication:BMI 24.0-24.9, adult Start:12-Jan-2017 Instruction Type:Patient Education Patient Instructions Indication:BMI 24.0-24.9, adult Start:12-Jan-2017 Instruction Type:Provider Instructions for Treatment How to access health informa tion online Indication:BMI 26.0-26.9,adult Start:08-Sep-2016 Instruction Type:Patient Education How to access health informa tion online - Detail Indication:BMI 26.0-26.9,adult Start:08-Sep-2016 Instruction Type:Patient Education Patient Instructions Indication:BMI 26.0-26.9,adult Start:08-Sep-2016 Instruction Type:Provider Instructions for Treatment How to access health informa tion online Indication:Well woman exam (Renamed from Encounter for well woman exam) Start:05-May-2016 Instruction Type:Patient Education How to access health informa tion online - Detail Indication:Well woman exam (Renamed from Encounter for well woman exam) Start:05-May-2016 Instruction Type:Patient Education Patient Instructions Indication:Well woman exam (Renamed from Encounter for well woman exam) Start:05-May-2016 Instruction Type:Provider Instructions for Treatment How to access health informa tion online Indication:Acute cystitis without hematuria Start:23-Jul-2015 Instruction Type:Patient Education How to access health informa tion online - Detail Indication:Acute cystitis without hematuria Start:23-Jul-2015 Instruction Type:Patient Education Patient Instructions Indication:Acute cystitis without hematuria Start:23-Jul-2015 Instruction Type:Provider Instructions for Treatment How to access health informa tion online Indication:Thyroid nodule Start:18-Jun-2015 Instruction Type:Patient Education How to access health informa tion online - Detail Indication:Thyroid nodule Start:18-Jun-2015 Instruction Type:Patient Education Patient Instructions Indication:Thyroid nodule Start:18-Jun-2015 Instruction Type:Provider Instructions for Treatment How to access health informa tion online Indication:Well woman exam Start:16-Oct-2014 Instruction Type:Patient Education How to access health informa tion online - Detail Indication:Well woman exam Start:16-Oct-2014 Instruction Type:Patient Education Patient Instructions Indication:Well woman exam Start:16-Oct-2014 Instruction Type:Provider Instructions for Treatment Name Dates Details How to access health informa tion online Indication:Current nonsmoker (Renamed from Current non-smoker) Start:18-Nov-2018 Instruction Type:Patient Education How to access health informa tion online - Detail Indication:Current nonsmoker (Renamed from Current non-smoker) Start:18-Nov-2018 Instruction Type:Patient Education Patient Instructions Indication:BMI 24.0-24.9, adult Start:18-Nov-2018 Instruction Type:Provider Instructions for Treatment How to access health informa tion online Indication:Non-STEMI (non-ST elevated myocardial infarction) Start:20-Sep-2018 Instruction Type:Patient Education How to access health informa tion online - Detail Indication:Non-STEMI (non-ST elevated myocardial infarction) Start:20-Sep-2018 Instruction Type:Patient Education Patient Instructions Indication:Non-STEMI (non-ST elevated myocardial infarction) Start:20-Sep-2018 Instruction Type:Provider Instructions for Treatment How to access health informa tion online Indication:Well woman exam (Renamed from Encounter for well woman exam) Start:08-Jun-2018 Instruction Type:Patient Education How to access health informa tion online - Detail Indication:Well woman exam (Renamed from Encounter for well woman exam) Start:08-Jun-2018 Instruction Type:Patient Education Patient Instructions Indication:Well woman exam (Renamed from Encounter for well woman exam) Start:08-Jun-2018 Instruction Type:Provider Instructions for Treatment How to access health informa tion online Indication:Non-STEMI (non-ST elevated myocardial infarction) Start:15-Mar-2018 Instruction Type:Patient Education How to access health informa tion online - Detail Indication:Non-STEMI (non-ST elevated myocardial infarction) Start:15-Mar-2018 Instruction Type:Patient Education Patient Instructions Indication:Non-STEMI (non-ST elevated myocardial infarction) Start:15-Mar-2018 Instruction Type:Provider Instructions for Treatment How to access health informa tion online Indication:Diverticulitis Start:08-Feb-2018 Instruction Type:Patient Education How to access health informa tion online - Detail Indication:Diverticulitis Start:08-Feb-2018 Instruction Type:Patient Education Patient Instructions Indication:Diverticulitis Start:08-Feb-2018 Instruction Type:Provider Instructions for Treatment How to access health informa tion online Indication:Well woman exam (Renamed from Encounter for well woman exam) Start:25-May-2017 Instruction Type:Patient Education How to access health informa tion online - Detail Indication:Well woman exam (Renamed from Encounter for well woman exam) Start:25-May-2017 Instruction Type:Patient Education Patient Instructions Indication:Well woman exam (Renamed from Encounter for well woman exam) Start:25-May-2017 Instruction Type:Provider Instructions for Treatment How to access health informa tion online Indication:BMI 24.0-24.9, adult Start:12-Jan-2017 Instruction Type:Patient Education How to access health informa tion online - Detail Indication:BMI 24.0-24.9, adult Start:12-Jan-2017 Instruction Type:Patient Education Patient Instructions Indication:BMI 24.0-24.9, adult Start:12-Jan-2017 Instruction Type:Provider Instructions for Treatment How to access health informa tion online Indication:BMI 26.0-26.9,adult Start:08-Sep-2016 Instruction Type:Patient Education How to access health informa tion online - Detail Indication:BMI 26.0-26.9,adult Start:08-Sep-2016 Instruction Type:Patient Education Patient Instructions Indication:BMI 26.0-26.9,adult Start:08-Sep-2016 Instruction Type:Provider Instructions for Treatment How to access health informa tion online Indication:Well woman exam (Renamed from Encounter for well woman exam) Start:05-May-2016 Instruction Type:Patient Education How to access health informa tion online - Detail Indication:Well woman exam (Renamed from Encounter for well woman exam) Start:05-May-2016 Instruction Type:Patient Education Patient Instructions Indication:Well woman exam (Renamed from Encounter for well woman exam) Start:05-May-2016 Instruction Type:Provider Instructions for Treatment How to access health informa tion online Indication:Acute cystitis without hematuria Start:23-Jul-2015 Instruction Type:Patient Education How to access health informa tion online - Detail Indication:Acute cystitis without hematuria Start:23-Jul-2015 Instruction Type:Patient Education Patient Instructions Indication:Acute cystitis without hematuria Start:23-Jul-2015 Instruction Type:Provider Instructions for Treatment How to access health informa tion online Indication:Thyroid nodule Start:18-Jun-2015 Instruction Type:Patient Education How to access health informa tion online - Detail Indication:Thyroid nodule Start:18-Jun-2015 Instruction Type:Patient Education Patient Instructions Indication:Thyroid nodule Start:18-Jun-2015 Instruction Type:Provider Instructions for Treatment How to access health informa tion online Indication:Well woman exam Start:16-Oct-2014 Instruction Type:Patient Education How to access health informa tion online - Detail Indication:Well woman exam Start:16-Oct-2014 Instruction Type:Patient Education Patient Instructions Indication:Well woman exam Start:16-Oct-2014 Instruction Type:Provider Instructions for Treatment Name Dates Details How to access health informa tion online Indication:Current nonsmoker (Renamed from Current non-smoker) Start:18-Nov-2018 Instruction Type:Patient Education How to access health informa tion online - Detail Indication:Current nonsmoker (Renamed from Current non-smoker) Start:18-Nov-2018 Instruction Type:Patient Education Patient Instructions Indication:BMI 24.0-24.9, adult Start:18-Nov-2018 Instruction Type:Provider Instructions for Treatment How to access health informa tion online Indication:Non-STEMI (non-ST elevated myocardial infarction) Start:20-Sep-2018 Instruction Type:Patient Education How to access health informa tion online - Detail Indication:Non-STEMI (non-ST elevated myocardial infarction) Start:20-Sep-2018 Instruction Type:Patient Education Patient Instructions Indication:Non-STEMI (non-ST elevated myocardial infarction) Start:20-Sep-2018 Instruction Type:Provider Instructions for Treatment How to access health informa tion online Indication:Well woman exam (Renamed from Encounter for well woman exam) Start:08-Jun-2018 Instruction Type:Patient Education How to access health informa tion online - Detail Indication:Well woman exam (Renamed from Encounter for well woman exam) Start:08-Jun-2018 Instruction Type:Patient Education Patient Instructions Indication:Well woman exam (Renamed from Encounter for well woman exam) Start:08-Jun-2018 Instruction Type:Provider Instructions for Treatment How to access health informa tion online Indication:Non-STEMI (non-ST elevated myocardial infarction) Start:15-Mar-2018 Instruction Type:Patient Education How to access health informa tion online - Detail Indication:Non-STEMI (non-ST elevated myocardial infarction) Start:15-Mar-2018 Instruction Type:Patient Education Patient Instructions Indication:Non-STEMI (non-ST elevated myocardial infarction) Start:15-Mar-2018 Instruction Type:Provider Instructions for Treatment How to access health informa tion online Indication:Diverticulitis Start:08-Feb-2018 Instruction Type:Patient Education How to access health informa tion online - Detail Indication:Diverticulitis Start:08-Feb-2018 Instruction Type:Patient Education Patient Instructions Indication:Diverticulitis Start:08-Feb-2018 Instruction Type:Provider Instructions for Treatment How to access health informa tion online Indication:Well woman exam (Renamed from Encounter for well woman exam) Start:25-May-2017 Instruction Type:Patient Education How to access health informa tion online - Detail Indication:Well woman exam (Renamed from Encounter for well woman exam) Start:25-May-2017 Instruction Type:Patient Education Patient Instructions Indication:Well woman exam (Renamed from Encounter for well woman exam) Start:25-May-2017 Instruction Type:Provider Instructions for Treatment How to access health informa tion online Indication:BMI 24.0-24.9, adult Start:12-Jan-2017 Instruction Type:Patient Education How to access health informa tion online - Detail Indication:BMI 24.0-24.9, adult Start:12-Jan-2017 Instruction Type:Patient Education Patient Instructions Indication:BMI 24.0-24.9, adult Start:12-Jan-2017 Instruction Type:Provider Instructions for Treatment How to access health informa tion online Indication:BMI 26.0-26.9,adult Start:08-Sep-2016 Instruction Type:Patient Education How to access health informa tion online - Detail Indication:BMI 26.0-26.9,adult Start:08-Sep-2016 Instruction Type:Patient Education Patient Instructions Indication:BMI 26.0-26.9,adult Start:08-Sep-2016 Instruction Type:Provider Instructions for Treatment How to access health informa tion online Indication:Well woman exam (Renamed from Encounter for well woman exam) Start:05-May-2016 Instruction Type:Patient Education How to access health informa tion online - Detail Indication:Well woman exam (Renamed from Encounter for well woman exam) Start:05-May-2016 Instruction Type:Patient Education Patient Instructions Indication:Well woman exam (Renamed from Encounter for well woman exam) Start:05-May-2016 Instruction Type:Provider Instructions for Treatment How to access health informa tion online Indication:Acute cystitis without hematuria Start:23-Jul-2015 Instruction Type:Patient Education How to access health informa tion online - Detail Indication:Acute cystitis without hematuria Start:23-Jul-2015 Instruction Type:Patient Education Patient Instructions Indication:Acute cystitis without hematuria Start:23-Jul-2015 Instruction Type:Provider Instructions for Treatment How to access health informa tion online Indication:Thyroid nodule Start:18-Jun-2015 Instruction Type:Patient Education How to access health informa tion online - Detail Indication:Thyroid nodule Start:18-Jun-2015 Instruction Type:Patient Education Patient Instructions Indication:Thyroid nodule Start:18-Jun-2015 Instruction Type:Provider Instructions for Treatment How to access health informa tion online Indication:Well woman exam Start:16-Oct-2014 Instruction Type:Patient Education How to access health informa tion online - Detail Indication:Well woman exam Start:16-Oct-2014 Instruction Type:Patient Education Patient Instructions Indication:Well woman exam Start:16-Oct-2014 Instruction Type:Provider Instructions for Treatment Name Dates Details How to access health informa tion online Indication:Current nonsmoker (Renamed from Current non-smoker) Start:18-Nov-2018 Instruction Type:Patient Education How to access health informa tion online - Detail Indication:Current nonsmoker (Renamed from Current non-smoker) Start:18-Nov-2018 Instruction Type:Patient Education Patient Instructions Indication:BMI 24.0-24.9, adult Start:18-Nov-2018 Instruction Type:Provider Instructions for Treatment How to access health informa tion online Indication:Non-STEMI (non-ST elevated myocardial infarction) Start:20-Sep-2018 Instruction Type:Patient Education How to access health informa tion online - Detail Indication:Non-STEMI (non-ST elevated myocardial infarction) Start:20-Sep-2018 Instruction Type:Patient Education Patient Instructions Indication:Non-STEMI (non-ST elevated myocardial infarction) Start:20-Sep-2018 Instruction Type:Provider Instructions for Treatment How to access health informa tion online Indication:Well woman exam (Renamed from Encounter for well woman exam) Start:08-Jun-2018 Instruction Type:Patient Education How to access health informa tion online - Detail Indication:Well woman exam (Renamed from Encounter for well woman exam) Start:08-Jun-2018 Instruction Type:Patient Education Patient Instructions Indication:Well woman exam (Renamed from Encounter for well woman exam) Start:08-Jun-2018 Instruction Type:Provider Instructions for Treatment How to access health informa tion online Indication:Non-STEMI (non-ST elevated myocardial infarction) Start:15-Mar-2018 Instruction Type:Patient Education How to access health informa tion online - Detail Indication:Non-STEMI (non-ST elevated myocardial infarction) Start:15-Mar-2018 Instruction Type:Patient Education Patient Instructions Indication:Non-STEMI (non-ST elevated myocardial infarction) Start:15-Mar-2018 Instruction Type:Provider Instructions for Treatment How to access health informa tion online Indication:Diverticulitis Start:08-Feb-2018 Instruction Type:Patient Education How to access health informa tion online - Detail Indication:Diverticulitis Start:08-Feb-2018 Instruction Type:Patient Education Patient Instructions Indication:Diverticulitis Start:08-Feb-2018 Instruction Type:Provider Instructions for Treatment How to access health informa tion online Indication:Well woman exam (Renamed from Encounter for well woman exam) Start:25-May-2017 Instruction Type:Patient Education How to access health informa tion online - Detail Indication:Well woman exam (Renamed from Encounter for well woman exam) Start:25-May-2017 Instruction Type:Patient Education Patient Instructions Indication:Well woman exam (Renamed from Encounter for well woman exam) Start:25-May-2017 Instruction Type:Provider Instructions for Treatment How to access health informa tion online Indication:BMI 24.0-24.9, adult Start:12-Jan-2017 Instruction Type:Patient Education How to access health informa tion online - Detail Indication:BMI 24.0-24.9, adult Start:12-Jan-2017 Instruction Type:Patient Education Patient Instructions Indication:BMI 24.0-24.9, adult Start:12-Jan-2017 Instruction Type:Provider Instructions for Treatment How to access health informa tion online Indication:BMI 26.0-26.9,adult Start:08-Sep-2016 Instruction Type:Patient Education How to access health informa tion online - Detail Indication:BMI 26.0-26.9,adult Start:08-Sep-2016 Instruction Type:Patient Education Patient Instructions Indication:BMI 26.0-26.9,adult Start:08-Sep-2016 Instruction Type:Provider Instructions for Treatment How to access health informa tion online Indication:Well woman exam (Renamed from Encounter for well woman exam) Start:05-May-2016 Instruction Type:Patient Education How to access health informa tion online - Detail Indication:Well woman exam (Renamed from Encounter for well woman exam) Start:05-May-2016 Instruction Type:Patient Education Patient Instructions Indication:Well woman exam (Renamed from Encounter for well woman exam) Start:05-May-2016 Instruction Type:Provider Instructions for Treatment How to access health informa tion online Indication:Acute cystitis without hematuria Start:23-Jul-2015 Instruction Type:Patient Education How to access health informa tion online - Detail Indication:Acute cystitis without hematuria Start:23-Jul-2015 Instruction Type:Patient Education Patient Instructions Indication:Acute cystitis without hematuria Start:23-Jul-2015 Instruction Type:Provider Instructions for Treatment How to access health informa tion online Indication:Thyroid nodule Start:18-Jun-2015 Instruction Type:Patient Education How to access health informa tion online - Detail Indication:Thyroid nodule Start:18-Jun-2015 Instruction Type:Patient Education Patient Instructions Indication:Thyroid nodule Start:18-Jun-2015 Instruction Type:Provider Instructions for Treatment How to access health informa tion online Indication:Well woman exam Start:16-Oct-2014 Instruction Type:Patient Education How to access health informa tion online - Detail Indication:Well woman exam Start:16-Oct-2014 Instruction Type:Patient Education Patient Instructions Indication:Well woman exam Start:16-Oct-2014 Instruction Type:Provider Instructions for Treatment Name Dates Details Patient Instructions Indication:Hypercholesteremia Start:19-Apr-2020 Instruction Type:Provider Instructions for Treatment How to Access Health Informa tion Online using Patient Portal and [employer] Indication:Hypercholesteremia Start:19-Apr-2020 Instruction Type:Patient Education How to access health informa tion online Indication:Well woman exam (Renamed from Encounter for well woman exam) Start:15-Dec-2019 Instruction Type:Patient Education How to access health informa tion online - Detail Indication:Well woman exam (Renamed from Encounter for well woman exam) Start:15-Dec-2019 Instruction Type:Patient Education Patient Instructions Indication:Well woman exam (Renamed from Encounter for well woman exam) Start:15-Dec-2019 Instruction Type:Provider Instructions for Treatment How to access health informa tion online Indication:Non-STEMI (non-ST elevated myocardial infarction) Start:28-Mar-2019 Instruction Type:Patient Education How to access health informa tion online - Detail Indication:Non-STEMI (non-ST elevated myocardial infarction) Start:28-Mar-2019 Instruction Type:Patient Education Patient Instructions Indication:Non-STEMI (non-ST elevated myocardial infarction) Start:28-Mar-2019 Instruction Type:Provider Instructions for Treatment How to access health informa tion online Indication:Current nonsmoker (Renamed from Current non-smoker) Start:18-Nov-2018 Instruction Type:Patient Education How to access health informa tion online - Detail Indication:Current nonsmoker (Renamed from Current non-smoker) Start:18-Nov-2018 Instruction Type:Patient Education Patient Instructions Indication:BMI 24.0-24.9, adult Start:18-Nov-2018 Instruction Type:Provider Instructions for Treatment How to access health informa tion online Indication:Non-STEMI (non-ST elevated myocardial infarction) Start:20-Sep-2018 Instruction Type:Patient Education How to access health informa tion online - Detail Indication:Non-STEMI (non-ST elevated myocardial infarction) Start:20-Sep-2018 Instruction Type:Patient Education Patient Instructions Indication:Non-STEMI (non-ST elevated myocardial infarction) Start:20-Sep-2018 Instruction Type:Provider Instructions for Treatment How to access health informa tion online Indication:Well woman exam (Renamed from Encounter for well woman exam) Start:08-Jun-2018 Instruction Type:Patient Education How to access health informa tion online - Detail Indication:Well woman exam (Renamed from Encounter for well woman exam) Start:08-Jun-2018 Instruction Type:Patient Education Patient Instructions Indication:Well woman exam (Renamed from Encounter for well woman exam) Start:08-Jun-2018 Instruction Type:Provider Instructions for Treatment How to access health informa tion online Indication:Non-STEMI (non-ST elevated myocardial infarction) Start:15-Mar-2018 Instruction Type:Patient Education How to access health informa tion online - Detail Indication:Non-STEMI (non-ST elevated myocardial infarction) Start:15-Mar-2018 Instruction Type:Patient Education Patient Instructions Indication:Non-STEMI (non-ST elevated myocardial infarction) Start:15-Mar-2018 Instruction Type:Provider Instructions for Treatment How to access health informa tion online Indication:Diverticulitis Start:08-Feb-2018 Instruction Type:Patient Education How to access health informa tion online - Detail Indication:Diverticulitis Start:08-Feb-2018 Instruction Type:Patient Education Patient Instructions Indication:Diverticulitis Start:08-Feb-2018 Instruction Type:Provider Instructions for Treatment How to access health informa tion online Indication:Well woman exam (Renamed from Encounter for well woman exam) Start:25-May-2017 Instruction Type:Patient Education How to access health informa tion online - Detail Indication:Well woman exam (Renamed from Encounter for well woman exam) Start:25-May-2017 Instruction Type:Patient Education Patient Instructions Indication:Well woman exam (Renamed from Encounter for well woman exam) Start:25-May-2017 Instruction Type:Provider Instructions for Treatment How to access health informa tion online Indication:BMI 24.0-24.9, adult Start:12-Jan-2017 Instruction Type:Patient Education How to access health informa tion online - Detail Indication:BMI 24.0-24.9, adult Start:12-Jan-2017 Instruction Type:Patient Education Patient Instructions Indication:BMI 24.0-24.9, adult Start:12-Jan-2017 Instruction Type:Provider Instructions for Treatment How to access health informa tion online Indication:BMI 26.0-26.9,adult Start:08-Sep-2016 Instruction Type:Patient Education How to access health informa tion online - Detail Indication:BMI 26.0-26.9,adult Start:08-Sep-2016 Instruction Type:Patient Education Patient Instructions Indication:BMI 26.0-26.9,adult Start:08-Sep-2016 Instruction Type:Provider Instructions for Treatment How to access health informa tion online Indication:Well woman exam (Renamed from Encounter for well woman exam) Start:05-May-2016 Instruction Type:Patient Education How to access health informa tion online - Detail Indication:Well woman exam (Renamed from Encounter for well woman exam) Start:05-May-2016 Instruction Type:Patient Education Patient Instructions Indication:Well woman exam (Renamed from Encounter for well woman exam) Start:05-May-2016 Instruction Type:Provider Instructions for Treatment How to access health informa tion online Indication:Acute cystitis without hematuria Start:23-Jul-2015 Instruction Type:Patient Education How to access health informa tion online - Detail Indication:Acute cystitis without hematuria Start:23-Jul-2015 Instruction Type:Patient Education Patient Instructions Indication:Acute cystitis without hematuria Start:23-Jul-2015 Instruction Type:Provider Instructions for Treatment How to access health informa tion online Indication:Thyroid nodule Start:18-Jun-2015 Instruction Type:Patient Education How to access health informa tion online - Detail Indication:Thyroid nodule Start:18-Jun-2015 Instruction Type:Patient Education Patient Instructions Indication:Thyroid nodule Start:18-Jun-2015 Instruction Type:Provider Instructions for Treatment How to access health informa tion online Indication:Well woman exam Start:16-Oct-2014 Instruction Type:Patient Education How to access health informa tion online - Detail Indication:Well woman exam Start:16-Oct-2014 Instruction Type:Patient Education Patient Instructions Indication:Well woman exam Start:16-Oct-2014 Instruction Type:Provider Instructions for Treatment Summary Purpose Advance Directives No Advanced Directives Records Found Advance Directive Response Recorded Date/ Time Advance Directives No December 1:11pm Living Will Yes March 08 10:06pm Power of [place] Drawer Yes March 08, 2018 10:06pm Advance Directive Response Recorded Date/ Time Advance Directives No February 06, 2020 10:53am Living Will Yes February 05 10:53am Power of [place] Drawer Yes February 06, 2020 10:53am Advance Directive Response Recorded Date/ Time Advance Directives No February 06, 2020 10:53am Advance Directive Response Recorded Date/ Time Do you have a Healthcare Power of [place] Drawer? Yes December 21, 2024 4:36pm Advance Directives No February 06, 2020 10:53am History of Present Illness * Jennifer Franco - 07/23/2020 1:55 PM EDT Basilia Campuzano is a 65 year old White female who presents with complaints of New Patient (Multinodular Goiter - refer Dr. Armenta ) HPI: She was in for evaluation of her multinodular goiter. She has had progressive enlargement of a right sided lesion noted by her PCP. She does not have any significant compressive type symptoms. Bilateral FNA biopsies showed benign lesions. She has a 4.5 and a 1.6 cm lesions on the right side and a 1.9 cm left- sided lesion. Her overall thyroid gland is enlarged on ultrasonography. This has been enlarging over the past 5 years reportedly. 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 We discussed the role for lobectomy alone for the dominant 4.5 cm mass versus more extensive surgery. I reviewed the differential diagnosis including the risk benefits options and potential complications. Based on the benign finding of the left sided biopsy and that the lesion is only 1.9 cm her preference is to preserve it with the hope that it helps maintain function and decreases risks associate with a bilateral procedure. Furthermore she would be interested in doing thison an outpatient basis if possible. Based on the FNA biopsy being benign additional frozen section would probably not be beneficial. She would like however to have the right-sided lesion removed withright thyroid lobectomy for definitive diagnosis and management. TSH was normal at 1.64. She has noother risk factors for thyroid cancer. Her participated in the office visit virtually by phone. This note was partially generated using [employer] voice recognition system. No past medical history on file. History reviewed. No pertinent surgical history. Social History Tobacco Use Smoking status: Never Smoker Smokeless tobacco: Never Used Substance Use Topics Alcohol use: Never Drug use: Not on file No family history on file. ALLERGIES Not on File Current Outpatient Medications Medication Sig metoprolol tartrate, short acting, (LOPRESSOR) 12.5 mg tab Take by mouth every 12 hours. 1 QD No current facility-administered medications for this visit. REVIEW OF SYSTEMS: Review of Systems Constitutional: Negative for chills, fever and weight loss. HENT: Negative. Negative for congestion, ear pain, hearing loss, sinus pain and sore throat. Eyes: Negative. Negative for blurred vision, double vision and pain. Respiratory: Negative for cough, shortness of breath and wheezing. Cardiovascular: Negative. Negative for chest pain, palpitations and leg swelling. Gastrointestinal: Negative for abdominal pain, constipation, diarrhea, heartburn, nausea and vomiting. Genitourinary: Negative. Negative for dysuria, frequency and urgency. Musculoskeletal: Negative. Negative for back pain, joint pain and neck pain. Skin: Negative for itching and rash. Neurological: Negative for dizziness, weakness and headaches. Endo/Heme/Allergies: Negative for environmental allergies. Does not bruise/bleed easily. Psychiatric/Behavioral: Negative for depression and memory loss. The patient is nervous/anxious. The patient does not have insomnia. PHYSICAL EXAM: BP 114/48 Pulse 53 Temp (Src) 98.4 (Temporal) Ht 5' 4 (1.63m) Wt 153 lb (69.4kg) BMI 26.25 kg/(m^2). General Evaluation: On exam she has asymmetrical enlargement of her right thyroid lobe causing tracheal deviation slightly to the right. No lymphadenopathy. No symptoms are noted with extrinsic pressure. Head: Normocephalic Neck: No JVD Chest: Symmetrical Abdomen: No acute findings noted Genitalia: Deferred Breast: Deferred Back, including spine: No deformity Extremities: Normal ROM Constitutional: No acute distress Eyes: EOMI Ears, nose, mouth, and throat: Grossly WNL Respiratory/lungs: No acute distress or dyspnea Musculoskeletal: Ambulatory Skin: No jaundice Neurologic: CN grossly intact Psychiatric: Alert, Oriented Hematologic/lymphatic: No lymphedema Procedures: No notes on file Diagnosis: Thyroid mass (primary encounter diagnosis) Plan Assessment: She has bilateral thyroid nodularity with a dominant 4.5 cm lesion involving the right lobe which has been associated with interval enlargement over the past 5 years. Bilateral biopsies were consistent with a benign multinodular goiter. She also has a 1.9 cm left-sided lesion and another 1.6 cm right sided lesion reported on her ultrasonography. Plan: She would like to proceed with her delivery crew member's recommendation for definitive thyroid surgery and her preference is to limit this to right thyroid lobectomy at this time for definitive management of the 4.5 cm and 1.6 cm right sided lesions, the more asymmetrically enlarged right thyroid lobe.She understands the need for continued follow-up of the left-sided nodule and to reassess her thyroid function postoperatively with the hope that her left remaining lobe is sufficient to keep her euthyroid. She was encouraged to call me with any questions or concerns. She was pleased with this treatment planning. She is scheduled for outpatient surgery on August 29, 2020: Intraoperative ultrasound, right thyroid lobectomy, nerve integrity monitoring. She will take her beta-kenrick the morning of surgery. Jennifer Franco M.D., F.A.C.S. This note was partially generated using Game[employer] voice recognition system. documented in this encounter Assessments Diagnosis Thyroid mass- Primary Unspecified disorder of thyroid Diagnosis Thyroid mass- Primary Unspecified disorder of thyroid Thyroid mass Unspecified disorder of thyroid Chief Complaint and Reason for Visit Chief Complaint 1 y fu Nonrheumatic mitral (valve) insufficiency Reason for Visit Mitral valve insuffi ciency Palpitations Mixed hyperlipidemia Chief Complaint 1 Y FU XRAY SCREENING Reason for Visit Mitral valve insuffi ciency Palpitations Mixed hyperlipidemia Chief Complaint Admit Date SCREENING July 11, 2024 7:35 am Chief Complaint Admit Date TACHYCARDIA December 20, 2024 8:46am right shoulder December 21, 2024 4:20pm Chief Complaint Admit Date TACHYCARDIA December 20, 2024 8:46am TACHYCARDIA December 20, 2024 9:06am right shoulder December 21, 2024 4:20pm PER PCP/ABN HOLTER January 04, 2025 10:22am Reason for Visit Admit Date Mitral valve insufficiency December 10:22am Palpitations January 04, 2025 10:22am Supraventricular tachycardia December 122024 10:22am Mixed hyperlipidemia January 04 10:22am Additional Source Comments INFORMATION SOURCE (unrecogn ized section and content) DATE CREATED AUTHOR 04/01/2018 [facility] DATE CREATED AUTHOR AUTHOR'S ORGANIZ ATION 10/18/2018 [employer] DATE CREATED AUTHOR AUTHOR'S ORGANIZ ATION 09/11/2020 [facility] DATE CREATED AUTHOR AUTHOR'S ORGANIZ ATION 05/13/[address] [facility] DATE CREATED AUTHOR AUTHOR'S ORGANIZ ATION 08/20/[address] [facility] [address] DATE CREATED AUTHOR AUTHOR'S ORGANIZ ATION 01/26/2025 [facility] Source Comments (unrecognize d section and content) In the event this informatio n is protected by the Federal Confidentiality of Alcohol and Drug Abuse Patient Records regulations: The Federal rules restrict any use of the information to criminally investigate or prosecute any alcohol or drug abuse patient.[facility] the event this information is protected by the Federal Confidentiality of Alcohol and Drug Abuse Patient Records regulations: The Federal rules restrict any use of the information to criminally investigate or prosecute any alcohol or drug abuse patient.[facility] the event this information is protected by the Federal Confidentiality of Alcohol and Drug Abuse Patient Records regulations: The Federal rules restrict any use of the information to criminally investigate or prosecute any alcohol or drug abuse patient.[facility] the event this information is protected by the Federal Confidentiality of Alcohol and Drug Abuse Patient Records regulations: The Federal rules restrict any use of the information to criminally investigate or prosecute any alcohol or drug abuse patient.[facility] Reason for Visit (unrecogniz ed section and content) Reason Comments New Patient Multinodular Goiter - refer Dr. Armenta Goals (unrecognized section and content) Goals may be documented in a n alternate sectionGoals may be documented in an alternate sectionGoals may be documented in an alternate sectionGoals may be documented in an alternate sectionGoals may be documented in an alternate sectionGoals may be documented in an alternate section Care Teams (unrecognized sec tion and content) Team Status: Active Member Role Status Dates Dr. Nehal Vu MD Family Provider Active Dr. Nehal Vu MD Primary Care Provider Active Team Status: Inactive Member Role Status Dates Dr. Nehal Vu MD Primary Care Provider, Referring Provider Active Yina Roger PA, PA Attending Provider Active Team Status: Inactive Member Role Status Dates Dr. Nehal Vu MD Primary Care Provider Active Dr. Sudeep Holloway MD Attending Provider Active Team Status: Inactive Member Role Status Dates Dr. Nehal Vu MD Primary Care Provi yazan, Attending Provider, Referring Provider Active Team Status: Active Member Role Status Dates Dr. Nehal Vu MD Primary Care Provider Active Team Status: Inactive Member Role Status Dates Dr. Nehal Vu MD Primary Care Provider Active Start: July 11, 2024 End: July 11, 2024 Dr. Nehal Vu MD Attending Provider Active Start: July 11, 2024 End: July 11, 2024 Dr. Nehal Vu MD Referring Provider Active Start: July 11, 2024 End: July 11, 2024 Team Status: Active Member Role/Relationship Status Dates Dr. Nehal Vu MD Primary Care Provider Active Team Status: Active Member Role/Relationship Status Dates Dr. Nehal Vu MD Primary Care Provider Active Start: December 20, 2024 Dr. Nehal Vu MD Attending Provider Active Start: December 20, 2024 Dr. Nehal Vu MD Referring Provider Active Start: December 20, 2024 Team Status: Inactive Member Role/Relationship Status Dates Dr. Nehal Vu MD Primary Care Provider Active Start: December 21, 2024 End: December 21, 2024 Dr. Daniel Arechiga DO Emergency Provider Active Start: December End: December 21, 2024 Team Status: Active Member Role/Relationship Status Dates Dr. Nehal Vu MD Primary care physician Active Team Status: Inactive Member Role/Relationship Status Dates Dr. Nehal Vu MD Primary care physician Active Start: December 20, 2024 End: December 20, 2024 Dr. Nehal Vu MD Attending physician Active Start: December 20, 2024 End: December 20, 2024 Dr. Nehal Vu MD Referring Provider Active Start: December 20, 2024 End: December 20, 2024 Team Status: Active Member Role/Relationship Status Dates Dr. Nehal Vu MD Primary care physician Active Start: December 20, 2024 Dr. Nehal Vu MD Referring Provider Active Start: December 20, 2024 Dr. Papito Ray MD Attending physician Active Start: December 20, 2024 Team Status: Inactive Member Role/Relationship Status Dates Dr. Nehal Vu MD Primary care physician Active Start: December 21, 2024 End: December 21, 2024 Dr. Daniel Arechiga DO Attending physician Active Start: December End: December 21, 2024 Dr. Daniel Arechiga DO Emergency Department Physician Active Start: December 21, 2024 End: December 21, 2024 Team Status: Inactive Member Role/Relationship Status Dates Dr. Nehal Vu MD Primary care physician Active Start: January 04, 2025 End: January 04, 2025 Dr. Nehal Vu MD Referring Provider Active Start: January 04, 2025 End: January 04, 2025 Elidia Torres NP, CRIBBER-C Attending physician Active Start: January 04, 2025 End: January 04, 2025 FOR RECORDS PERTAINING TO PATIENTS WHO ARE OR HAVE BEEN ENROLLED IN A CHEMICAL DEPENDENCY/SUBSTANCEABUSE PROGRAM, SOME INFORMATION MAY BE OMITTED. This clinical summary was aggregated from multiple sources. Caution should be exercised in using it in the provision of clinical care. This summary normalizes information from multiple sources, and as a consequence, information in this document may materially change the coding, format and clinical context of patient data. In addition, data may be omitted in some cases. CLINICAL DECISIONS SHOULD BE BASED ON THE PRIMARY CLINICAL RECORDS. [employer] provides no warranty or guarantee of the accuracy or completeness of information in this document.
--- NOTE | 2025-02-01 09:53 | STRESSREP_ITS ---
Stress Test Report Date: 02/01/2025 Procedure: Exercise tolerance test/imaging study Indications: Abnormal ECG/SVT Consent: Per the patient Procedure: The patient exercised on a Jamari protocol for 8 minutes and 9 seconds achieving a peak heart rate of 141 bpm (92% predicted maximal heart rate) with a peak blood pressure 146/64 mmHg and a peak MET capacity of 10.1 METs. The baseline ECG demonstrated sinus rhythm. The peak exercise ECG did not show any ischemic changes. There were hyperacute T waves in inferior leads at 1 minute into recovery that resolved 5 minutes into recovery. There were no cardiac dysrhythmias pretest, during exercise, or recovery. The functional capacity was considered excellent for age. There was no complaint of chest discomfort during exercise or recovery. The examination was discontinued secondary to target heart rate being achieved. The patient was injected with 11.7 mCi of technetium 99m Cardiolite and subsequently rest SPECT Cardiolite nuclear imaging was obtained in the horizontal long, vertical long, and short axis views. Post-exercise, the patient was injected with 36.0 mCi of technetium 99m Cardiolite and subsequently stress SPECT Cardiolite nuclear imaging was obtained in the horizontal long, vertical long, and short axis views. A gated Cardiolite study at peak stress was obtained. Rest and stress SPECT Cardiolite nuclear imaging status post realignment, normalization, and attenuation correction, demonstrates the appearance of relative uniform tracer uptake and myocardial perfusion appearing within normal limits. There is end systolic thickening and brightening. The gated Cardiolite study demonstrates myocardial thickening and inward wall motion. The reported LVEF is 81%. Impression: 1. Technically adequate (percent predicted maximal heart rate greater than 85%) exercise tolerance test 2. Peak exercise ECG with no ischemic changes. Hyperacute T waves noted in recovery that may denote ischemia 3. There were no cardiac dysrhythmias pretest, during exercise, or recovery 4. Rest and stress SPECT Cardiolite nuclear imaging demonstrate relative uniform tracer uptake and myocardial perfusion appearing within normal limits. 5. The gated Cardiolite study reports an LVEF of 81%. This note was generated with [employer] software. It may contain incorrect words, spelling, and punctuation that were not noted in checking the note before signing.
== END | disposition home or self-care (01) ==
LOC: CVS 06:34
PROVIDERS: PCP Internal Medicine; Referring Provider Nurse Practitioner Gerontology; Visit Provider Nurse Practitioner Gerontology
DX: R94.31 Abnormal electrocardiogram [ECG] [EKG] (principal); I25.2 Old myocardial infarction; I47.10 Supraventricular tachycardia, unspecified
CPT/HCPCS: 78452; 93017; 93306; A9500; A4216